=== PATIENT | male | born 1955 | race Caucasian/White ===

== ENCOUNTER → 2016-10-12 | Outpatient (CLI) | payer OTHER ==
[~2016-10-12] MED LIST: AMOX875T PO; CETI10TA84 PEG; CHLO0.12 MT; CHLO0.122 PO; CLOZ100T18 PEG; CLOZ25TA2 PEG; CLOZ50TA PEG; CYAN10005 PEG; CYAN100T6 PEG; LACTCAP3 PEG; LEVA1.255 INH; MULTLIQ PEG; NUTR-7 PEG; NYST100010 TOP; POLY1POW2 PO; ZINC40OI11 TOP
[2016-10-12 13:00] LABS: HEMATOCRIT 38.6 % (42-52); MEAN CELL VOLUME 98.2 fL (80-100); MEAN CORPUSCULAR HEMOGLOBIN 34.1 pg (25-34); MEAN CORPUSCULAR HGB CONC 34.7 g/dl (32-36); MEAN PLATELET VOLUME 13.3 fL (7.4-10.4); PLATELET COUNT 123 K/uL (130-400); RED BLOOD COUNT 3.93 M/uL (4.7-6.1); WHITE BLOOD COUNT 5.32 K/uL (4.8-10.8)
[2016-10-12 13:03] LABS: BASO % 0.4 %; BASO ABS # 0.02 K/uL (0-0.2); COMPLETE YES; EOS % 1.3 %; IG% 0.2 %; LYMPH % 27.8 %; LYMPH ABS # 1.48 K/uL (1.2-3.4); MONO % 11.8 %; NEUT % 58.5 %; PLT ESTIMATE DECREASED
== END | disposition home or self-care (01) ==
LOC: C.LABBFT 11:22
PROVIDERS: ATTEND Internal Medicine
DX: D64.9 Anemia, unspecified (principal)

== ENCOUNTER 2016-11-21 09:43 | Emergency (ER) | payer OTHER ==
[~2016-11-21 09:43] MED LIST changes: -AMOX875T PO; -CHLO0.122 PO; -CYAN10005 PEG; -LEVA1.255 INH; -NYST100010 TOP; -POLY1POW2 PO; -ZINC40OI11 TOP
[2016-11-21] MEDS ORDERED: NYST100010 TOP (10:12)
[2016-11-21] MEDS ORDERED: CYAN10005 PEG (10:12)
[2016-11-21] MEDS ORDERED: ZINC40OI11 TOP (10:12)
[2016-11-21] MEDS ORDERED: POLY1POW2 PO (10:12)
[2016-11-21] MEDS ORDERED: LEVA1.255 INH (10:12)
[2016-11-21] MEDS ORDERED: CHLO0.122 PO (10:12)
--- NOTE | 2016-11-21 10:23 | DIAGNOSTIC IMAGING REPORT ---
SINGLE VIEW CHEST CLINICAL HISTORY: Cough. FINDINGS: An AP, portable, upright chest radiograph is compared to study dated 05/28/2015. The examination is degraded by portable technique and patient rotation. The cardiomediastinal silhouette is normal for projection. There is mild atherosclerotic calcification of the thoracic aorta. There are bibasilar airspace opacities. No large pleural effusion or pneumothorax is seen. The skeletal structures appear osteopenic. The bony thorax is grossly intact. IMPRESSION: There are bibasilar airspace opacities. This could represent atelectasis and/or an infectious/inflammatory pneumonitis. Clinical correlation will be required. Electronically signed by: Jones Goldstein M.D. 11/21/2016 10:21 AM Dictated Date/Time: 11/21/2016 10:18 AM
[2016-11-21 10:28] VITALS: TEMP 36.4
[2016-11-21] MEDS ORDERED: AMOX875T PO (10:53)
[2016-11-21] MEDS ORDERED: SODIUM CHLORIDE 0.65% NA SOLN 45 ML (OCEAN) ONE (11:00)
[2016-11-21 11:12] VITALS: BP 148/94; PULSE 74; O2SAT 98
--- NOTE | 2016-11-21 15:14 | EMERGENCY ROOM VISIT NOTE ---
History Report prepared by Maddy: Raine Gooden Under the Supervision of: Dr. Jones Barroso M.D. First contact with patient: 09:59 Chief Complaint: COUGH Stated Complaint: SEVERE NOSEBLEEDS WHEN COUGHING/DRY TIGHT COUGH Nursing Triage Summary: Patient brought in by director medicare sales from [facility]. Per care given patient has had intermittent dry cough that started over the weekend. Cough is worsening denies any fevers. Patient also having nose bleeds with the cough. History of Present Illness The patient is a 61 year old male who presents to the Emergency Room with complaints of persistent cough starting 3 days ago. The patient's caregiver is giving the history. The cough started as a tight, dry cough. This morning the patient began experiencing nose bleeds when he coughed. This happened 3 times in 45 minutes, prompting the caregiver to present to the ED with the patient. He does have a history of bronchitis and has a nebulizer at home. He also has a humidifier which is regularly in use. The patient is not on blood thinners and has not had treatment for nose bleeds before. He does not have any fever or other symptoms according to the caregiver. Source of History: caregiver Onset: 3 days ago Position: other (global) Quality: other (cough) Timing: other (persistent) Associated Symptoms: No fevers Note: Pt reports nose bleeds. Review of Systems Unobtainable given his mental state. Past Medical & Surgical Medical Problems: (1) Anemia (2) DYSKINESIA OF ESOPHAGUS (3) EPILEPSY UNSPEC W/O MENTION INTRACTABLE EPILEPSY (4) GASTROSTOMY COMPL NOS (5) MENTAL RETARDATION NOS (6) Myelodysplasia (myelodysplastic syndrome) (7) Thrombocytopenia Family History Patient reports no known family medical history. Social History Smoking Status: Never Smoker Alcohol Use: none Marital Status: single Occupation Status: disabled Current/Historical Medications Scheduled Amoxicillin & Pot Clavulanate (Augmentin 875-125 mg), 875 MG PO BID Cetirizine (Zyrtec), 10 MG PEG DAILY Chlorhexidine Gluconate (Mouth (Periogard), 15 ML PO BID Clozapine (Clozapine), 100 MG PEG HS Clozapine (Clozapine), 25 MG PEG HS Clozapine (Clozapine), 50 MG PEG QAM Cyanocobalamin (Vitamin B-12), 1,000 MCG PEG DAILY Lactobacillus (Acidophilus), 1 CAP PEG BID Multiple Vitamins W/ Minerals (Centavite), 15 ML PEG DAILY Nutritional Supplements (Boost), 1 CAN PEG QID Nystatin (Topical) (Nystop), 1 APPLN TOP BID Polyethylene Glycol 3350 (Bulk (Polyethylene Glycol 3350), 17 GM PO BID Zinc Oxide (Topical) (Desitin), 1 APPLN TOP Q4 Scheduled PRN Levalbuterol Hcl (Levalbuterol), 1.25 MG INH TID PRN for SOB/Wheezing Allergies Coded Allergies: Belladonna (Verified Allergy, Mild, 11/21/16) [place] (Verified Allergy, Mild, 11/21/16) Macrolides (Verified Allergy, Mild, RASH, 11/21/16) Trazodone (Verified Allergy, Mild, 11/21/16) Aripiprazole (Unverified Allergy, Unknown, ., 11/21/16) Clarithromycin (Verified Allergy, Unknown, 11/21/16) Glycopyrrolate (Verified Allergy, Unknown, 11/21/16) Metoclopramide (Verified Allergy, Unknown, PT TAKES AT HOME, 04/06/12) Risperidone (Verified Allergy, Unknown, ., 11/21/16) Physical Exam Vital Signs Date Time Temp Pulse Resp B/P Pulse Ox O2 Delivery O2 Flow Rate FiO2 11/21/16 11:12 74 20 148/94 98 11/21/16 10:28 36.4 11/21/16 10:00 97 Room Air 11/21/16 09:52 93 20 105/62 98 Room Air Physical Exam GENERAL: Patient is in no acute distress. HEENT: No acute trauma, normocephalic atraumatic, mucous membranes moist, no nasal congestion, no scleral icterus. Dried blood with a scab to the left anterior nasal septum. No active bleeding. No blood down the back of the throat. NECK: No stridor, no adenopathy, no meningismus, trachea is midline. LUNGS: Clear to auscultation bilaterally, no wheeze, no rhonchi, breath sounds equal. HEART: Without murmurs gallops or rubs, regular rate and rhythm. ABDOMEN: Soft, nontender, bowel sounds positive, no hernias, no peritonitis. EXTREMITIES: No cyanosis or edema, full range of motion of all the joints without pain or difficulty, no signs for acute trauma. NEUROLOGIC: MR noted. Awake and alert. Moving all extremities. SKIN: No rash, no jaundice, no diaphoresis. Medical Decision & Procedures ER Provider Diagnostic Interpretation: X-ray results as stated below per interpretation by me and the radiologist: SINGLE VIEW CHEST CLINICAL HISTORY: Cough. FINDINGS: An AP, portable, upright chest radiograph is compared to study dated 05/28/2015. The examination is degraded by portable technique and patient rotation. The cardiomediastinal silhouette is normal for projection. There is mild atherosclerotic calcification of the thoracic aorta. There are bibasilar airspace opacities. No large pleural effusion or pneumothorax is seen. The skeletal structures appear osteopenic. The bony thorax is grossly intact. IMPRESSION: There are bibasilar airspace opacities. This could represent atelectasis and/or an infectious/inflammatory pneumonitis. Clinical correlation will be required. Electronically signed by: Jones Goldstein M.D. 11/21/2016 10:21 AM Dictated Date/Time: 11/21/2016 10:18 AM Medications Administered Medications (Trade) Dose Ordered Sig/[place] Route Start Time Stop Time Status Last Admin Dose Admin Sodium Chloride ([place] Nasal [place]) 1 sprays NOW ONCE NA 11/21/16 11:00 11/21/16 11:01 DC 11/21/16 11:00 1 SPRAYS ED Course 1003: The patient was evaluated in room A12. A complete history and physical exam was performed. 1045: I reevaluated the patient. He is resting comfortably. I updated him and his caregiver on the results and treatment plan. She expressed understanding and agreement. He will be discharged home. 1100: Sodium Chloride 1 sprays NA. Medical Decision Differential diagnoses: Bronchitis, pneumonia, coagulopathy, anterior or posterior epistaxis. The patient presents with a cough and some left sided epistaxis. The bleeding is controlled at the present. The patient is not on any blood thinners, he is not overtly hypertensive. A chest film was done, lower lobe atelectasis versus possible pneumonia was noted. The patient is in no significant distress. I do not think we need to cauterize his nose. I have advised some saline moisturizer to the nose, a nasal clip if things were to rebleed. The patient will be on Augmentin for the possibility of an early pneumonia. He can be returned here if things are worsening. He will start using his nebulizer to help his cough. Impression Primary Impression: Left-sided epistaxis Additional Impression: Cough Scribe Attestation The scribe's documentation has been prepared under my direction and personally reviewed by me in its entirety. I confirm that the note above accurately reflects all work, treatment, procedures, and medical decision making performed by me. Departure Information Dispostion Home / Self-Care Prescriptions Amoxicillin & Pot Clavulanate (Augmentin 875-125 mg) 1 Tab Tab 875 MG PO BID for 7 Days, #14 TAB Prov: Jones Barroso M.D. 11/21/16 Referrals Chema Hernandez M.D. (PCP) Forms HOME CARE DOCUMENTATION FORM, IMPORTANT VISIT INFORMATION Patient Instructions My [facility] Additional Instructions antibiotics as prescribed start the nebulizer every 4-6 hours if nose rebleeds apply the clip for 30 minutes, if still bleeding report to the ER continue the humidifier to room ocean spray to nose 1 spray to each sided every 4 hours while awake see chau bingham this week for a recheck return if worsening Problem Qualifiers
== END 2016-11-21 11:16 | disposition home or self-care (01) ==
LOC: C.EDB 09:45 → C.EDA 11:16
DX: R04.0 Epistaxis (principal); R05 Cough; F79 Unspecified intellectual disabilities; G40.909 Epilepsy, unspecified, not intractable, without status epilepticus; Z93.1 Gastrostomy status; D46.9 Myelodysplastic syndrome, unspecified; D69.6 Thrombocytopenia, unspecified; Z79.899 Other long term (current) drug therapy

== ENCOUNTER → 2017-05-31 | Outpatient (CLI) | payer OTHER ==
[~2017-05-31] MED LIST changes: -CHLO0.12 MT; +CHLO0.122 PO; +CYAN10005 PEG; -CYAN100T6 PEG; +LEVA1.255 INH; +NYST100010 TOP; +POLY1POW2 PO; +ZINC40OI11 TOP
== END | disposition home or self-care (01) ==
LOC: C.LABSPEC 14:05
PROVIDERS: ATTEND Internal Medicine
DX: A04.7 Enterocolitis due to Clostridium difficile (principal)

== ENCOUNTER → 2017-06-28 | Outpatient (CLI) | payer OTHER ==
[2017-06-28 13:26] LABS: BLOOD UREA NITROGEN 24 mg/dl (7-18); BUN/CREATININE RATIO 23.4 (10-20); CALCIUM 9.4 mg/dl (8.5-10.1); CARBON DIOXIDE 27 mmol/L (21-32); CHLORIDE 110 mmol/L (98-107); CREATININE 1.02 mg/dl (0.60-1.40); GLUCOSE 135 mg/dl (70-99); POTASSIUM 3.6 mmol/L (3.5-5.1); SODIUM 142 mmol/L (136-145)
== END | disposition home or self-care (01) ==
LOC: C.LABBC 11:43
PROVIDERS: ATTEND Internal Medicine
DX: D46.9 Myelodysplastic syndrome, unspecified (principal)

== ENCOUNTER 2017-10-11 10:40 | Emergency (ER) | payer OTHER ==
[~2017-10-11] VITALS: Ht 160 cm; Wt 67.6 kg
[~2017-10-11 10:40] MED LIST changes: -ZINC40OI11 TOP; +ZINC40OI13 TOP
[2017-10-11 10:44] VITALS: TEMP 36; Ht 160 cm; Wt 67.6 kg
[2017-10-11] MEDS ORDERED: ACTUDL10 PEG (11:07)
[2017-10-11] MEDS ORDERED: LOPELIQ6 PEG (11:07)
--- NOTE | 2017-10-11 11:14 | EMERGENCY ROOM VISIT NOTE ---
History Report prepared by Maddy: Cinda Dietrich Under the Supervision of: Dr. Jones Barroso M.D. 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 Per caregiver, the patient' s feeding tube cap broke and needs to be replaced. The current feeding tube is located in the LUQ of his abdomen. He was placed on a feeding tube years ago due to persistent aspirations. The patient has been doing well lately and his mental status is at baseline. Per caregiver, the patient denies any coughs, diarrhea, or congestion. Source of History: caregiver Onset: HIGHER EDUCATION ADMINISTRATOR Position: abdomen (LUQ), other Quality: other ( feeding tube replacement ) Timing: other (episodic) Associated Symptoms: No cough, No diarrhea Note: Denies congestion. Review of Systems See HPI for pertinent positives & negatives. A total of 10 systems reviewed and were otherwise negative. Past Medical & Surgical Medical Problems: (1) Abrasion of scrotum (2) Anemia (3) Closed head injury (4) Cough (5) Dislodged gastrostomy tube (6) DYSKINESIA OF ESOPHAGUS (7) EPILEPSY UNSPEC W/O MENTION INTRACTABLE EPILEPSY (8) Feeding tube blocked (9) Feeding tube dysfunction (10) GASTROSTOMY COMPL NOS (11) Left-sided epistaxis (12) MENTAL RETARDATION NOS (13) Multiple abrasions (14) Multiple contusions (15) Myelodysplasia (myelodysplastic syndrome) (16) Nasal bone fracture (17) PEG tube malfunction (18) Thrombocytopenia (19) Uses feeding tube Family History No pertinent family history obtained secondary to patient's condition Social History Smoking Status: Never Smoker Alcohol Use: none Drug Use: none Marital Status: single Occupation Status: disabled Current/Historical Medications Scheduled Cetirizine (Zyrtec), 10 MG PEG DAILY Chlorhexidine Gluconate (Mouth (Periogard), 15 ML PO BID Clozapine (Clozapine), 100 MG PEG HS Clozapine (Clozapine), 25 MG PEG HS Clozapine (Clozapine), 50 MG PEG QAM Cyanocobalamin (Vitamin B-12), 1,000 MCG PEG DAILY Lactobacillus (Acidophilus), 1 CAP PEG BID Loperamide Hcl (Imodium A-D), 4 TSP PEG DIRECTED Multiple Vitamins W/ Minerals (Centavite), 15 ML PEG DAILY Nutritional Supplements (Boost), 1 CAN PEG QID Nystatin (Topical) (Nystop), 1 APPLN TOP BID Polyethylene Glycol 3350 (Bulk (Polyethylene Glycol 3350), 17 GM PO BID Zinc Oxide (Topical) (Desitin), 1 APPLN TOP Q4 Scheduled PRN Acetaminophen 320 Mg/10 Ml (Tylenol 320 MG/10 ML), 20 ML PEG Q4H PRN for Pain or Fever Levalbuterol Hcl (Levalbuterol), 1.25 MG INH TID PRN for SOB/Wheezing Allergies Coded Allergies: Bell[place] (Verified Allergy, Mild, 11/21/16) [place] (Verified Allergy, Mild, 11/21/16) Macrolides (Verified Allergy, Mild, RASH, 11/21/16) Trazodone (Verified Allergy, Mild, 11/21/16) Aripiprazole (Unverified Allergy, Unknown, ., 11/21/16) Clarithromycin (Verified Allergy, Unknown, 11/21/16) Glycopyrrolate (Verified Allergy, Unknown, 11/21/16) Metoclopramide (Verified Allergy, Unknown, PT TAKES AT HOME, 04/06/12) Risperidone (Verified Allergy, Unknown, ., 11/21/16) Physical Exam Vital Signs Date Time Temp Pulse Resp B/P (MAP) Pulse Ox O2 Delivery O2 Flow Rate FiO2 10/11/17 12:01 67 20 123/67 97 10/11/17 10:44 36.0 79 18 108/60 98 Room Air Physical Exam GENERAL: Patient is in no acute distress. HEENT: No acute trauma, normocephalic atraumatic, mucous membranes moist, no nasal congestion, no scleral icterus. NECK: No stridor, no adenopathy, no meningismus, trachea is midline. LUNGS: Clear to auscultation bilaterally, no wheeze, no rhonchi, breath sounds equal. HEART: Without murmurs gallops or rubs, regular rate and rhythm. ABDOMEN: Soft, nontender, bowel sounds positive, no hernias, no peritonitis. Feeding tube present in LUQ with broken cap. EXTREMITIES: No cyanosis or edema, full range of motion of all the joints without pain or difficulty, no signs for acute trauma. NEUROLOGIC: MR noted. Moving all extremities, acting appropriately per staff. SKIN: No rash, no jaundice, no diaphoresis. Medical Decision & Procedures Procedure Feeding tube replacement: The existing feeding tube had the balloon deflated. The tube was removed. Betadine was used to keep a clean field. Surgical lube was used for ease of placement. The new feeding tube was placed without difficulty and the balloon was inflated with 5 mL of sterile water. It was confirmed in proper position as stomach contents were easily aspirated. No complications with the procedure. The patient was discharged. ED Course 1107: The patient was evaluated in room C4. A complete history and physical exam was performed. I replaced the patient's feeding tube. Please see procedural note. I discussed the results and treatment plan with the patient's caregiver. I answered all pertaining questions that the caregiver had. The caregiver expressed understanding and verbalized agreement. The patient will be discharged home. Medical Decision The patient is a 62 year old male who presents to the ED with complaints of feeding tube replacement. Differential diagnoses considered include misplaced feeding tube, broken feeding tube, need for feeding tube replacement, and infection. The patient presents with a broken feeding tube. He has been in baseline health. He has no other issues today. He is pleasant and afebrile. The broken feeding tube was removed without difficulty. A new feeding tube was placed as mentioned above and noted to be in proper position. The patient was discharged. Medication Reconcilliation Current Medication List: was personally reviewed by me Blood Pressure Screening Patient's blood pressure: Normal blood pressure Impression Primary Impression: Feeding tube dysfunction Scribe Attestation The scribe's documentation has been prepared under my direction and personally reviewed by me in its entirety. I confirm that the note above accurately reflects all work, treatment, procedures, and medical decision making performed by me. Departure Information Dispostion Home / Self-Care Referrals Chema Hernandez M.D. (PCP) Forms HOME CARE DOCUMENTATION FORM, IMPORTANT VISIT INFORMATION, WORK / SCHOOL INSTRUCTIONS Patient Instructions My [facility] Additional Instructions use the feeding tube as before return for any problems with the feeding tube
[2017-10-11 12:01] VITALS: BP 123/67; PULSE 67; O2SAT 97
== END 2017-10-11 11:50 | disposition home or self-care (01) ==
LOC: C.EDB 10:41 → C.EDC 11:50
DX: K94.23 Gastrostomy malfunction (principal); F79 Unspecified intellectual disabilities

== ENCOUNTER → 2017-10-23 | Outpatient (CLI) | payer OTHER ==
[~2017-10-23] MED LIST changes: +ACTUDL10 PEG; +LOPELIQ6 PEG
[2017-10-23 16:53] LABS: BASO % 0.3 %; BASO ABS # 0.02 K/uL (0-0.2); EOS % 1.5 %; HEMATOCRIT 40.2 % (42-52); HEMOGLOBIN 13.5 g/dL (14.0-18.0); IG# 0.02 K/uL (0.00-0.02); LYMPH % 26.4 %; LYMPH ABS # 1.76 K/uL (1.2-3.4); MEAN CELL VOLUME 99.8 fL (80-100); MEAN CORPUSCULAR HEMOGLOBIN 33.5 pg (25-34); MEAN CORPUSCULAR HGB CONC 33.6 g/dl (32-36); MEAN PLATELET VOLUME 12.7 fL (7.4-10.4); MONO % 11.1 %; MONO ABS # 0.74 K/uL (0.11-0.59); NEUT % 60.4 %; NEUT ABS # 4.02 K/uL (1.4-6.5); PLATELET COUNT 137 K/uL (130-400); RED CELL DISTRIBUTION WIDTH CV 13.4 % (11.5-14.5); RED CELL DISTRIBUTION WIDTH SD 48.4 fL (36.4-46.3); WHITE BLOOD COUNT 6.66 K/uL (4.8-10.8)
== END | disposition home or self-care (01) ==
LOC: C.LABBC 13:19
PROVIDERS: ATTEND Internal Medicine
DX: D64.9 Anemia, unspecified (principal)

== ENCOUNTER 2017-11-13 18:00 | Emergency (ER) | payer OTHER ==
[~2017-11-13] VITALS: Ht 165.1 cm; Wt 68.7 kg
[2017-11-13 18:05] VITALS: TEMP 36.7; Ht 165.1 cm; Wt 68.7 kg
--- NOTE | 2017-11-13 18:43 | DIAGNOSTIC IMAGING REPORT ---
CHEST 2 VIEWS ROUTINE CLINICAL HISTORY: Chronic NPO status, today consumed drink. Aspiration? Dyspnea COMPARISON STUDY: 11/21/2016 FINDINGS: Mild cardia megaly. Diffuse interstitial change throughout both hemithoraces. A component of mild congestive failure may be present. IMPRESSION: Progressive interstitial change compared to the prior study suggesting developing congestive failure. No focal infiltrate. An interstitial pneumonitis may present in a similar fashion. The above report was generated using voice recognition software. It may contain grammatical, syntax or spelling errors. Electronically signed by: Jason Chaves M.D. 11/13/2017 6:42 PM Dictated Date/Time: 11/13/2017 6:41 PM
--- NOTE | 2017-11-13 18:58 | EMERGENCY ROOM VISIT NOTE ---
History First contact with patient: 18:11 Chief Complaint: OTHER COMPLAINT Stated Complaint: NPO DUE TO FEEDING TUBE - WORRIED HE ASPIRATED History of Present Illness The patient is a 62 year old male who presents to the Emergency Room via private vehicle accompanied by female garment steamer for skills with complaints of "NPO due to feeding tube, worried he aspirated". Patient is nonverbal. The skills garment steamer who presents with the patient provides the history. He is to be n.p.o. with a feeding tube he has had for numerous years. Unfortunately earlier today he was able to acquire root beer, and drank this. He has not coughed or showed signs of aspiration however to be cautious was brought here for evaluation. Review of Systems Unable to assess as patient is non verbal. Past Medical/Surgical History Medical Problems: (1) Abrasion of scrotum (2) Anemia (3) Closed head injury (4) Cough (5) Dislodged gastrostomy tube (6) DYSKINESIA OF ESOPHAGUS (7) EPILEPSY UNSPEC W/O MENTION INTRACTABLE EPILEPSY (8) Feeding tube blocked (9) Feeding tube dysfunction (10) GASTROSTOMY COMPL NOS (11) Left-sided epistaxis (12) MENTAL RETARDATION NOS (13) Multiple abrasions (14) Multiple contusions (15) Myelodysplasia (myelodysplastic syndrome) (16) Nasal bone fracture (17) PEG tube malfunction (18) Thrombocytopenia (19) Uses feeding tube Family History No pertinent family history obtained secondary to patient's condition Social History Smoking Status: Never Smoker Alcohol Use: none Drug Use: none Marital Status: single Occupation Status: disabled Current/Historical Medications Scheduled Cetirizine (Zyrtec), 10 MG PEG DAILY Chlorhexidine Gluconate (Mouth (Periogard), 15 ML PO BID Clozapine (Clozapine), 100 MG PEG HS Clozapine (Clozapine), 25 MG PEG HS Clozapine (Clozapine), 50 MG PEG QAM Cyanocobalamin (Vitamin B-12), 1,000 MCG PEG DAILY Lactobacillus (Acidophilus), 1 CAP PEG BID Loperamide Hcl (Imodium A-D), 4 TSP PEG DIRECTED Multiple Vitamins W/ Minerals (Centavite), 15 ML PEG DAILY Nutritional Supplements (Boost), 1 CAN PEG QID Nystatin (Topical) (Nystop), 1 APPLN TOP BID Polyethylene Glycol 3350 (Bulk (Polyethylene Glycol 3350), 17 GM PO BID Zinc Oxide (Topical) (Desitin), 1 APPLN TOP Q4 Scheduled PRN Acetaminophen 320 Mg/10 Ml (Tylenol 320 MG/10 ML), 20 ML PEG Q4H PRN for Pain or Fever Levalbuterol Hcl (Levalbuterol), 1.25 MG INH TID PRN for SOB/Wheezing Physical Exam Vital Signs Date Time Temp Pulse Resp B/P (MAP) Pulse Ox O2 Delivery O2 Flow Rate FiO2 11/13/17 18:05 36.7 73 16 127/67 96 Room Air Physical Exam VITAL SIGNS - Vital signs and nursing notes were reviewed. Stable. GENERAL - 62-year-old male appearing his stated age who is in no acute distress. Non verbal but pleasant and smiling in exam room. No labored breathing. SKIN - Without rashes. HEAD - NC/AT. EYES - PERRL with EOMI bilaterally. Sclera anicteric. Palpebral conjunctiva pink and moist with no injection noted. EARS - No deformities of external structures noted on gross examination bilaterally. NOSE - Midline and without cyanosis. No epistaxis or purulent drainage noted. MOUTH/OROPHARYNX - Without perioral cyanosis. LUNGS - Chest wall symmetric without accessory muscle use, intercostals retractions, or central cyanosis. Normal vesicular breath sounds CTA B/L. No wheezes, rales, or rhonchi appreciated. CARDIAC - RRR with S1/S2. No murmur, rubs, or gallops appreciated. Medical Decision & Procedures ER Provider Diagnostic Interpretation: CHEST 2 VIEWS ROUTINE CLINICAL HISTORY: Chronic NPO status, today consumed drink. Aspiration? Dyspnea COMPARISON STUDY: 11/21/2016 FINDINGS: Mild cardia megaly. Diffuse interstitial change throughout both hemithoraces. A component of mild congestive failure may be present. IMPRESSION: Progressive interstitial change compared to the prior study suggesting developing congestive failure. No focal infiltrate. An interstitial pneumonitis may present in a similar fashion. The above report was generated using voice recognition software. It may contain grammatical, syntax or spelling errors. Electronically signed by: Jason Chaves M.D. 11/13/2017 6:42 PM Dictated Date/Time: 11/13/2017 6:41 PM Medical Decision Patient was seen and evaluated as above. He presents to us today for evaluation over concern for potential aspiration. It is important to note that there were no signs of aspiration prior to the hospital nor here in the hospital. However this evaluation is to ensure that there is no aspiration following him drinking root beer on his n.p.o. status because of the feeding tube. After obtaining a thorough history and physical examination the above work up was performed. Chest x-ray reveals interstitial change however I favor this to be chronic as clinically the patient looks excellent has no findings suggesting aspiration. Case discussed with the attending physician. However, the patient certainly could develop something in the near future from this therefore do recommend follow-up with the family doctor either tomorrow or the following day and caretakers are to repeat his temperature every 6 hours to ensure no fever, and watch for cough, congestion or trouble breathing and if these were to develop he is to return immediately. The they were educated upon management, had questions answered prior to discharge, and was discharged home in good condition. Case was discussed with the attending physician I attest that I have personally reviewed the patient medication list. The patient's blood pressure was reviewed and was found to be slightly hypertensive. He is to follow with the family doctor either tomorrow or the following day for recheck. In the evaluation and treatment of this patient the following differential diagnoses were entertained: Aspiration, pneumonia, among others. Impression Primary Impression: Concern about aspiration Departure Information Dispostion Home / Self-Care Condition GOOD Referrals No Doctor, Assigned (PCP) Patient Instructions My [facility] Additional Instructions Mr. Simms was seen and evaluated in the emergency department on November 13, 2017. Concern was that he potentially aspirated, however x-ray I believe favors a chronic change rather than aspiration. He looks well here, is saturating well on room air, is not coughing, and has no fever. I do recommend continuing to monitor for worsening symptoms like fever, coughing, trouble breathing, or any new/concerning symptoms and if these develop please return. Please call the patient's family doctor to schedule follow-up in the next 1-2 days for recheck. Thank you for your time. CHEST 2 VIEWS ROUTINE CLINICAL HISTORY: Chronic NPO status, today consumed drink. Aspiration? Dyspnea COMPARISON STUDY: 11/21/2016 FINDINGS: Mild cardia megaly. Diffuse interstitial change throughout both hemithoraces. A component of mild congestive failure may be present.
[2017-11-13 19:25] VITALS: BP 139/64; PULSE 67; O2SAT 98
== END 2017-11-13 19:25 | disposition home or self-care (01) ==
LOC: C.EDB 18:01 → C.EDD 19:25
DX: T17.200A Unspecified foreign body in pharynx causing asphyxiation, initial encounter (principal); X58.XXXA Exposure to other specified factors, initial encounter; K22.4 Dyskinesia of esophagus; G40.909 Epilepsy, unspecified, not intractable, without status epilepticus; Z93.1 Gastrostomy status; F79 Unspecified intellectual disabilities

== ENCOUNTER → 2017-12-25 | Outpatient (CLI) | payer OTHER ==
[2017-12-25 16:49] LABS: BASO % 0.5 %; BASO ABS # 0.03 K/uL (0-0.2); EOS % 2.6 %; EOS ABS # 0.14 K/uL (0-0.5); HEMATOCRIT 39.1 % (42-52); HEMOGLOBIN 12.9 g/dL (14.0-18.0); IG# 0.02 K/uL (0.00-0.02); LYMPH % 29.5 %; LYMPH ABS # 1.61 K/uL (1.2-3.4); MEAN PLATELET VOLUME 12.9 fL (7.4-10.4); MONO ABS # 0.71 K/uL (0.11-0.59); NEUT ABS # 2.95 K/uL (1.4-6.5); PLATELET COUNT 136 K/uL (130-400); RED CELL DISTRIBUTION WIDTH CV 13.6 % (11.5-14.5); RED CELL DISTRIBUTION WIDTH SD 49.2 fL (36.4-46.3); WHITE BLOOD COUNT 5.46 K/uL (4.8-10.8)
== END | disposition home or self-care (01) ==
LOC: C.LABBC 14:04
PROVIDERS: ATTEND Internal Medicine
DX: D64.9 Anemia, unspecified (principal)

== ENCOUNTER 2023-08-07 01:02 | Inpatient (IN) ==
--- OUTSIDE RECORDS SUMMARY | 2023-08-07 01:13 | External Medical Summary | Summary of Care ---
Author Name Unknown Organization [facility] Address [address] [place] [address] Phone [phone] Care Team Providers Care Handle Bender Name Role Phone Von Stewart MD Primary Care Provi dung Reason for Visit * Reason Onset Date Comments Other 06/02/2023 Encounter Details Date Type Department Care Team Description 06/02/2023 Telephone Gastroenterology, [facility] [address] [place] [address] Shellie Norman, [address] [place] [address] Other Allergies Active Allergy Reactions Severity Noted Date Comments Neomycin-Polymyxin B Gu 07/01/2010 Aripiprazole 07/01/2010 Belladonna Alkaloids 07/01/2010 Clarithromycin 12/25/2002 Stomach upset Clarithromycin 07/01/2010 Glycopyrrolate Base 12/25/2002 Aggressive [place] 12/25/2002 Aggressive Macrolides And Ketolides 07/01/2010 Other - Drugs 07/01/2010 alkolide Risperidone 07/01/2010 Trazodone 12/08/2005 Swelling of face and hands, and aggressive documented as of this encounter (statuses as of 06/09/2023) Medications Medication Sig Dispensed Refills Start Date End Date Status MIRALAX PO POWDIndications:Ot her constipation Dissolve one heaping tablespoon in 8 ounces of water or juice - one dose twice daily till bm then every 3 days if no bm 1 Bottle 2 05/18/2012 Active cloZAPine 100 MG Oral Tablet Take 0.5 Tablets by mouth in the morning. 50mg In the morning. 0 Active cloZAPine 100 MG Oral Tablet Take 1 Tablet by mouth in the morning. 100mg at bedtime and a 25 mg at night. 0 Active Cyanocobalamin (VITAMIN B-12) 1000 MCG Tablet Administer 1 Tablet into PEG tube in the morning. 0 Active Lactobacillus (PROBIOTIC ACIDOPHILUS) TABS Administer 1 Tab into PEG tube 2 times a day. 0 Active Multiple Vitamins-Minerals (CENTAMIN) LIQD Administer 15 mL into PEG tube daily. 0 Active Chlorhexidine Gluconate 0.12 % Mouth/Throat Solution Apply 1 mL to inside of cheek in the morning and 1 mL before bedtime. Use toothette to swab teeth and gums two times per day. 0 Active Cetirizine HCl 10 MG Oral Tablet Take 1 Tablet by mouth in the morning. 0 Active Calmoseptine 0.44-20.6 % External Ointment (Menthol-Zinc Oxide) Apply topically to affected area as needed (peg tube). Apply topeg tube 0 Active Fluocinonide 0.05 % External Ointment Apply topically to affected area 2 times a day. Apply to as directed 0 Active Hydrocortisone Butyr Lipo Base 0.1 % External Cream Apply topically to affected area. Apply to as needed 0 Active Loperamide HCl 2 MG Oral Capsule Take 1 Capsule by mouth 4 times a day as needed for Diarrhea. 0 Active Alum & Mag Hydroxide-Simeth 200-200-20 MG/5ML Oral Suspension (Maalox Max) Take by mouth every 6 hours as needed for Indigestion. 0 Active Triple Antibiotic 3.5-400-5000 External Ointment Apply topically to affected area once. Apply to as ordered 0 Active Acetaminophen 160 MG/5ML Oral Suspension (Tylenol) Take by mouth every 4 hours as needed. 0 Active Desitin External Ointment Apply topically to affected area. Apply to as ordered 0 Active Eucerin External Cream Apply topically to affected area as needed for Dry Skin. Apply to as ordered 0 Active Furosemide 10 MG/ML Oral Solution (Lasix) Take 4 mL by mouth in the morning. As needed . 0 Active Boost Breeze Oral Liquid Take by mouth. 0 Active Clotrimazole-Betam ethasone 1-0.05 % External Cream Apply topically to affected area 2 times a day. Apply to as ordered 0 Active Bisacodyl 10 MG Rectal Suppository (Dulcolax) 0 04/15/2022 Active Fluocinonide Emulsified Base 0.05 % External Cream 0 05/18/2022 Active predniSONE 5 MG/5ML Oral Solution 0 04/28/2022 Active Allopurinol 100 MG Oral Tablet (Zyloprim) .COMPLEX 0 02/23/2023 Active Ibuprofen 100 MG/5ML Oral Suspension (Motrin) 0 02/23/2023 Active Docusate Sodium 50 MG/5ML Oral Liquid Take 5 mL by mouth in the morning. 0 Active Acidophilus Oral Tablet Chewable Take by mouth. 0 Activ e Sulfamethoxazole-T rimethoprim 200-40 MG/5ML Oral Suspension (Bactrim) Take 5 mL by mouth in the morning and 5 mL before bedtime. Via the PEG TUBE. 50 mL 0 05/16/2023 Active Nystatin 034594 UNIT/GM External Powder (Nystop)Indication s:Fungal skin infection Apply to affected area twice a day. Per wound care nurse instruction until skin is healed 15 g 2 06/09/2023 Active Kaltostat 2"x2" External PadIndications:Fun gal skin infection Apply to affected area per wound care nurse instruction. 90 Each 1 06/09/2023 Active Nystatin [id number] UNIT/GM External Powder (Nystop) Apply topically to affected area 3 times a day. Apply to as directed 0 3 Discontinue d(Refill) documented as of this encounter (statuses as of 06/09/2023) Active Problems Problem Noted Date Anemia 01/13/2015 ASPIRATION PNEUMONIA BACTERIAL,SPECIFIED 01/07/2011 DYSPHAGIA FUNCTIONAL 01/07/2011 Feeding problem 01/07/2011 Intestinal infection due to Clostridium difficile 05/28/2010 Generalized anxiety disorder 06/26/2007 EPILEPSY;NONCONV,WITH INTRACTABLE 2005 ADVANCE DIRECTIVE INFORMATION 03/08/2006 Overview: no spastic quadriparesis 09/19/2003 QUADRIPLEGIA, UNSPECIFIED 05/29/2003 Microcephalus 05/29/2003 Anemia 01/06/2003 Intellectual disability 10/30/2002 Overview: ICD-10 update of inactive term GERD (gastroesophageal reflux disease) 0 10/30/2002 MENTAL-BEHAVIOR PROB NOS 10/30/2002 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 CHRONIC RENAL FAILURE 01/06/2003 02/07/2006 documented as of this encounter (statuses as of 06/09/2023) Immunizations Name Administration Dates Next Due H1N1 2009 Influenza, IM 07/20/2009 Hepatitis B, 20+ yrs 08/31/1983,03/09/1983,02/10 PPD 02/04/2010, 8,02/17/2006,03/17 Pneumococcal Polysaccharide PPV23 (Pneumovax) 10/04/2006 Seasonal Influenza, Split, I IV3, With Preserve, Inj 07/12/2011,06/07/2010,06/05/2009,07/15,06/18/2007,06/21/2006,07/27/2005 ,06/23/2004,07/22/2002 TB Maya Test 07/22/2002 TD - Tetanus/Diptheria (ADULT) 03/15/2001 TDAP (age 11 and older)(Adacel) 02/11/2011 documented as of this encounter Social History Tobacco Use Types Packs/Day Years Used Date Smoking Tobacco: Never Smokeless Tobacco: Never Alcohol Use Standard Drinks/Week Comments No 0 (1 standard drink = 0.6 oz pur e alcohol) Sex Assigned at Date Recorded Not on file Job Start Date Occupation Industry Not on file Not on file Not on file documented as of this encounter Miscellaneous Notes * Addendum Note - Shellie Norman DO - 06/09/2023 6:23 PM EDTAddended by: SHELLIE NORMAN on: 06/09/2023 06:23 PM Modules accepted: Orders * Telephone Encounter - KIKO Vick - 06/09/2023 10:23 AM EDT Yahaira ids calling from the senior living wanting to know if the prescriptions were called in for him she can be reached at [phone] he will be out of his today * Telephone Encounter - Jen Howard RN - 06/07/2023 8:43 AM EDT TT sent to Dr. Norman to see if this is somwthing she would be willing to order or shed like to refer to PCP * Addendum Note - Jen Howard RN - 06/06/2023 2:24 PM EDTAddended by: JEN HOWARD on: 06/06/2023 02:24 PM Modules accepted: Orders * Telephone Encounter - Jen Howard RN - 06/06/2023 1:39 PM EDT Rogelio dutton md care nurse from [facility] calling back. Reports yahaira their nurse for the senior living needs an order for Kaltostat and Nystatin powder BID. Reports they have the Nystatin powder but need and order / direction to use it more often (BID). She thinks [facility] care on [address] carries Kaltostat. I called [facility] care and they reported they do not have any available. It looks like the [facility] uses [facility]. I called them and they have the 2x2 version available. Pended. Also pended Nystatin already listed on his medication list to say BID. Dr. Norman is this something you are willing to order? * Telephone Encounter - Jen Howard RN - 06/02/2023 1:44 PM EDT I received a fax from Rogelio Gonsales at [facility]. Sent to scanning. Ready facility needs orders for dressingsaround the PEG tube. I wanted to clarify further . I am not sure what the second recommendation wasas I can not read the writing. Also wanted to know if shed like Dr. Norman to order this. Do they usually come from a [employer] company? If Dr. Norman is unwilling to order and wound care can't. Maybe PCP will order. I left a message for rogelio to call me back. Sent fax to scanning. documented in this encounter Plan of Treatment Upcoming Encounters Date Type Specialty Care Team Description 10/31/2023 Office Visit Gastroenterology Ruben Ramos MD [address] [place] [address] Health Maintenance Due Date Last Done Comments Depression Screening 1967 Hepatitis C Screening 1973 Cologuard 2000 Fecal Occult Blood Test 2000 Sigmoidoscopy 2000 Lipid Panel 12/28/2016 12/29/2011, 07/12, 02/11/2011, Additional history exists Pneumococcal Vaccine: 65+ Years (2 - PCV) 2020 10/04/2006 Colonoscopy 05/26/2020 05/26/2010, 06/12/2007 Colorectal Cancer Screening 05/26/2020 COVID-19 Vaccine (3 - Pfizer series) 01/01/2021 11/06/2020, 10/16/2020 DTaP,Tdap,and Td Vaccines (2 - Td or Tdap) 02/11/2021 02/11/2011, 03/15/2001, 03/15/2001 Influenza Vaccine (FLU shot) (#1) 2023 05/13/2020, 06/26/2019, 07/12/2011, Additional history exists Hepatitis B Completed 08/31/1983, 02/10, 02/10/1983 Zoster Vaccines Completed 08/19/2020, 05/13, 05/31/2020, Additional history exists GARDASIL-HPV IMMUNIZATION SERIES Aged Out No longer eligible based on patient's age to complete this topic MENINGOCOCCAL (MENACTRA/MENVEO) Aged Out No longer eligible based on patient's age to complete this topic documented as of this encounter Medical Devices Not on filedocumented as of this encounter Visit Diagnoses Diagnosis Fungal skin infection- Primary Dermatophytosis of the body documented in this encounter Care Teams Handle Bender Relationship Specialty Start Date End Date oVn Stewart MD [address] [place] [address] [place] [id number] PCP - General Internal Medicine 02/04/21 documented as of this encounter
--- OUTSIDE RECORDS SUMMARY | 2023-08-07 01:13 | External Medical Summary | Summary of Care ---
Author Name Unknown Organization [facility] Address [address] [place] [address] Phone [phone] Care Team Providers Care Ultrasound Spec Name Role Phone Von Stewart MD Primary Care Provi dung Reason for Visit * Reason Onset Date Comments Advice 06/12/2023 Encounter Details Date Type Department Care Team Description 06/12/2023 Telephone Gastroenterology, [address] [address] Shellie Hall, DO [address] [place] [address] Advice Allergies Active Allergy Reactions Severity Noted Date Comments Neomycin-Polymyxin B Gu 07/01/2010 Aripiprazole 07/01/2010 Belladonna Alkaloids 07/01/2010 Clarithromycin 12/25/2002 Stomach upset Clarithromycin 07/01/2010 Glycopyrrolate Base 12/25/2002 Aggressive [place] 12/25/2002 Aggressive Macrolides And Ketolides 07/01/2010 Other - Drugs 07/01/2010 alkolide Risperidone 07/01/2010 Trazodone 12/08/2005 Swelling of face and hands, and aggressive documented as of this encounter (statuses as of 06/12/2023) Medications Medication Sig Dispensed Refills Start Date End Date Status MIRALAX PO POWDIndications:Othe r constipation Dissolve one heaping tablespoon in 8 [...] Oral Liquid Take by mouth. 0 Active Clotrimazole-Betamet hasone 1-0.05 % External Cream Apply topically to [...] Chewable Take by mouth. 0 Activ e Sulfamethoxazole-Tri methoprim 200-40 MG/5ML Oral Suspension (Bactrim) Take 5 mL by mouth in the morning and 5 mL before bedtime. Via the PEG TUBE. 50 mL 0 05/16/2023 Active Nystatin 950858 UNIT/GM External Powder (Nystop)Indications: Fungal skin infection Apply to affected area twice a day. Per wound care nurse instruction until skin is healed 15 g 2 06/09/2023 Active Kaltostat 2"x2" External PadIndications:Funga l skin infection Apply to affected area per wound care nurse instruction. 90 Each 1 06/09/2023 Active documented as of this encounter (statuses as of 06/12/2023) Active Problems Problem Noted Date Anemia 01/13/2015 [...] as of this encounter (statuses as of 06/12/2023) Resolved Problems Problem Noted Date Resolved Date Other disorder of eating of nonorganic origin 01/07/2011 Generalized anxiety disorder 06/26/2007 Overview: Resolved per Duplicate Protocol #2. CHRONIC RENAL FAILURE 01/06/2003 02/07/2006 documented as of this encounter (statuses as of 06/12/2023) Immunizations Name Administration Dates Next Due H1N1 [...] as of this encounter Miscellaneous Notes * Telephone Encounter - Renee Og RN - 06/12/2023 10:22 AM EDT Caregiver called says pt went to wound care nurse re: wound around Peg site. They ordered dressing called Kaltostat. Insurance won't cover it. It is very expensive for them to use. Told her it would be best to f/u with wound care nurse re: the wound as Dr. Hall doesn't really treat wounds. Caregiver says the area is healing. Previously, pt had a split guaze and wore a binder. Wasn't picking it as much when he was wearing the binder and split gauze. Caregiver assumes the Kaltostat bothers him more since he is picking at it. She thinks they have problems b/c it is always "sealed up" with abd binder. Wants to know if they can go back to using split gauze. Told her I think Dr. Hall would be fine with them using whatever seems best for the pt--if the wound is healing and the Kaltostat seems to bother him, then try the split gauze again. If the wound recurs then they will have to contact wound care nurse and may have to resume Kaltostat or an alternative dressing. Also suggested an adult onesie which is all cotton instead of the abd binder which would be more "breathable" and would prevent pt from pulling out the tube. Found one on the [employer] website. Gave caregiver that information as well. She will look into it. documented in this encounter Plan of Treatment Upcoming Encounters Date Type Specialty Care Team Description 10/31/2023 Office Visit Gastroenterology Ruben Ramos MD [address] [place] [address] Health Maintenance Due Date Last Done Comments [...] Not on filedocumented as of this encounter Care Teams Ultrasound Spec Relationship Specialty Start Date End Date Von Stewart MD [address] [place] [address] [place] [id number] PCP - General Internal Medicine 02/04/21 documented as of this encounter
--- OUTSIDE RECORDS SUMMARY | 2023-08-07 01:13 | External Medical Summary | Summary of Care ---
Author Name Unknown Organization [facility] Address [address] [place] [address] Phone [phone] Care Team Providers Care Rn Employee Health Name Role Phone Von Stewart MD Primary Care Provi dung Reason for Visit * Reason Onset Date Comments Advice 06/12/2023 Encounter Details Date Type Department Care Team Description 06/12/2023 Telephone Gastroenterology, [address] [address] Shellie Hall, DO [address] [place] [address] Advice Allergies Active Allergy Reactions Severity Noted Date Comments Neomycin-Polymyxin B Gu 07/01/2010 Aripiprazole 07/01/2010 Belladonna Alkaloids 07/01/2010 Clarithromycin 12/25/2002 Stomach upset Clarithromycin 07/01/2010 Glycopyrrolate Base 12/25/2002 Aggressive [place] 12/25/2002 Aggressive Macrolides And Ketolides 07/01/2010 Other [...] TUBE. 50 mL 0 05/16/2023 Active Nystatin 498018 UNIT/GM External Powder (Nystop)Indications: Fungal skin infection [...] out the tube. Found one on the [employer] website. Gave caregiver that information as well. She will look into it. documented in this encounter Plan of Treatment Upcoming Encounters Date Type Specialty Care Team Description 10/31/2023 Office Visit Gastroenterology Ruben Ramos MD [address] [place] [address] Health Maintenance Due Date Last Done Comments [...] filedocumented as of this encounter Care Teams Rn Employee Health Relationship Specialty Start Date End Date Von Stewart MD [address] [place] [address] [place] [address] PCP - General Internal Medicine 02/04/21 documented as of this encounter
--- OUTSIDE RECORDS SUMMARY | 2023-08-07 01:13 | External Medical Summary | Summary of Care ---
Author Name Unknown Organization [facility] Address [address] [place] [address] Phone [phone] Care Team Providers Care General Labor Name Role Phone Von Stewart MD Primary Care Provi dung Reason for Visit * Reason Onset Date Comments Advice 08/01/2023 Encounter Details Date Type Department Care Team ([facility] st Contact Info) Description 08/01/2023 Telephone Gastroenterology, [facility] [address] [place] [address] Services, Scheduling [address] [place] [address] Advice Allergies Active Allergy Reactions Criticality Noted Date Comments Neomycin-Polymyxin B Gu 07/01/2010 Aripiprazole 07/01/2010 Belladonna Alkaloids 07/01/2010 Clarithromycin 12/25/2002 Stomach upset Clarithromycin 07/01/2010 Glycopyrrolate Base 12/25/2002 Aggressive [place] 12/25/2002 Aggressive Macrolides And Ketolides 07/01/2010 Other - Drugs 07/01/2010 alkolide Risperidone 07/01/2010 Trazodone 12/08/2005 Swelling of face and hands, and aggressive documented as of this encounter (statuses as of 08/01/2023) Medications Medication Sig Dispensed Refills Start Date [...] TUBE. 50 mL 0 05/16/2023 Active Nystatin [id number] UNIT/GM External Powder (Nystop)Indications: Fungal skin infection Apply to affected area twice a day. Per wound care nurse instruction until skin is healed 15 g 2 06/09/2023 Active Kaltostat 2"x2" External PadIndications:Funga l skin infection Apply to affected area per wound care nurse instruction. 90 Each 1 06/09/2023 Active documented as of this encounter (statuses as of 08/01/2023) Active Problems Problem Noted Date Diagnosed Date Anemia 01/13/2015 ASPIRATION PNEUMONIA BACTERIAL,SPECIFIED 011 DYSPHAGIA FUNCTIONAL 01/07/2011 Feeding problem 01/07/2011 Intestinal infection due to Clostridium difficil e 05/28/2010 Generalized anxiety disorder 06/26/2007 EPILEPSY;NONCONV,WITH INTRACTABLE 03/27/2006 ADVANCE DIRECTIVE INFORMATION 03/08/2006 Overview: no spastic quadriparesis 09/19/2003 QUADRIPLEGIA, UNSPECIFIED 05/29/2003 Microcephalus 05/29/2003 Anemia 01/06/2003 Intellectual disability 10/30/2002 Overview: ICD-10 update of inactive term GERD (gastroesophageal reflux disease) 3 MENTAL-BEHAVIOR PROB NOS 10/30/2002 Other specified congenital anomaly of kidney Calculus of gallbladder with out mention of cholecystitis or obstruction documented as of this encounter (statuses as of 08/01/2023) Resolved Problems Problem Noted Date Diagnosed Date Resolved Date Other disorder of eating of nonorganic origin 06/07/20 10 01/07/2011 Generalized anxiety disorder 06/26/2007 10/09/2008 Overview: Resolved per Duplicate Protocol #2. CHRONIC RENAL FAILURE 01/06/20032005 documented as of this encounter (statuses as of 08/01/2023) Immunizations Name Administration Dates Next Due H1N1 2009 Influenza, IM 07/20/2009 PPD 02/04/2010,02/29/2008,02/17/2006 Pneumococcal Polysaccharide PPV23 (Pneumovax) 10/04/2006 Seasonal Influenza, Split, I IV3, With Preserve, Inj 07/12/2011,06/07/2010,06/05/2009,07/15,06/18/2007,06/21/2006 TDAP (age 11 and older)(Adacel) 02/11/2011 documented as of this encounter Social History Tobacco Use Types Packs/Day Years Used Date Smoking Tobacco: Never Smokeless Tobacco: Never Alcohol Use Standard Drinks/Week Comments No 0 (1 standard drink = 0.6 oz pur e alcohol) Sex and Gender Information Value Date Recorded Sex Assigned at Not on file Gender Identity Not on file Sexual Orientation Not on file Job Start Date Occupation Industry Not on file Not on file Not on file documented as of this encounter Miscellaneous Notes * Telephone Encounter - Renee Og RN - 08/01/2023 11:34 AM EST Yahaira from [employer] called. Pt was referred to Monique Gonsales (wound care). She recommended nystatin and kaltostat. Kaltostat was too expensive, but they are using nystatin with a dressing overtop. Says there is drainage around the tube. She was asking how much sterile water had been instilled in the balloon intially. She said there is 4 mL in now. At the bedside under sterile conditions, a 16 [place] 2.5 cm low-profile kinsey PEG tube was replaced. 6 mL of saline was insufflated and tube easily rotated, easily inserted, without issues. Told her there was intially 6 mL. Max per PEG booklet says 10 mL balloon. She says they will add a few mLs of sterile water to see if this helps with leaking. She will also contact PCP to see if he will rx calmoseptine as this has worked in the past. documented in this encounter Plan of Treatment Upcoming Encounters Date Type Department Care Team (Late st Contact Info) Description 10/31/2023 11:40 AM EST Office Visit Gastroenterology, [facility] [address] [place] [address] Ruben Ramos MD [address] [place] [address] Health Maintenance Due Date Last Done Comments Depression Screening 1967 Hepatitis C Screening 1973 Cologuard 2000 Fecal Occult Blood Test 2000 Sigmoidoscopy 2000 Lipid Panel 12/28/2016 12/29/2011, 07/12, 02/11/2011, Additional history exists Colonoscopy 05/26/2020 05/26/2010, 06/12/2007 Colorectal Cancer Screening 05/26/2020 DTaP,Tdap,and Td Vaccines (2 - Td or Tdap) 02/11/2021 02/11/2011, 03/15/2001, 03/15/2001 COVID-19 Vaccine (3 - season) 2023 11/06/2020, 10/16/2020 Influenza Vaccine (FLU shot) (#1) 2023 05/13/2020, 06/26/2019, 07/12/2011, Additional history exists Hepatitis B Completed 08/31/1983, 02/10, 02/10/1983 Zoster Vaccines Completed 08/19/2020, 05/13, 05/31/2020, Additional history exists Pneumococcal Vaccine: 65+ Years Completed 02/10/2021, 05/13/2020, 10/04/2006 GARDASIL-HPV IMMUNIZATION SERIES Aged Out No longer eligible based on patient's age to complete this topic MENINGOCOCCAL (MENACTRA/MENVEO) Aged Out No longer eligible based on patient's age to complete this topic documented as of this encounter Medical Devices Not on filedocumented as of this encounter Care Teams General Labor Relationship Specialty Start Date End Date Von Stewart MD [address] [place] [address] [place] [id number] PCP - General Internal Medicine 02/04/21 documented as of this encounter
--- OUTSIDE RECORDS SUMMARY | 2023-08-07 01:14 | External Medical Summary | Summary of Care ---
Author Name Unknown Organization [facility] Address [address] [place] [address] Phone [phone] Care Team Providers Care Bench Inspector Name Role Phone Von Stewart MD Primary Care Provi dung Reason for Visit * Reason Onset Date Comments Other 06/02/2023 Encounter Details Date Type Department Care Team Description 06/02/2023 Telephone Gastroenterology, [facility] [address] [place] [address] Shellie Hall, [address] [place] [address] Other Allergies Active Allergy Reactions Severity Noted Date Comments Neomycin-Polymyxin B Gu 07/01/2010 Aripiprazole 07/01/2010 Belladonna Alkaloids 07/01/2010 Clarithromycin 12/25/2002 Stomach upset Clarithromycin 07/01/2010 Glycopyrrolate Base 12/25/2002 Aggressive [place] 12/25/2002 Aggressive Macrolides And Ketolides 07/01/2010 Other - Drugs 07/01/2010 alkolide Risperidone 07/01/2010 Trazodone 12/08/2005 Swelling of face and hands, and aggressive documented as of this encounter (statuses as of 06/06/2023) Medications Medication Sig Dispensed Refills Start Date End Date Status MIRALAX PO POWDIndications:Other constipation Dissolve one heaping tablespoon in 8 [...] (peg tube). Apply topeg tube 0 Active Nystatin 414552 UNIT/GM External Powder (Nystop) Apply topically to affected area 3 times a day. Apply to as directed 0 Active Fluocinonide 0.05 % External Ointment [...] Oral Liquid Take by mouth. 0 Active Clotrimazole-Betameth asone 1-0.05 % External Cream Apply topically to [...] Chewable Take by mouth. 0 Activ e Sulfamethoxazole-Trim ethoprim 200-40 MG/5ML Oral Suspension (Bactrim) Take 5 mL by mouth in the morning and 5 mL before bedtime. Via the PEG TUBE. 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 CHRONIC RENAL FAILURE 01/06/2003 02/07/2006 documented as of this encounter (statuses as of 06/06/2023) Immunizations Name Administration Dates Next Due H1N1 [...] encounter Miscellaneous Notes * Addendum Note - Jen Howard RN - 06/06/2023 2:24 PM EDTAddended by: JEN HOWARD on: 06/06/2023 02:24 PM Modules accepted: Orders * Telephone Encounter - Jen Howard RN - 06/06/2023 1:39 PM EDT Rogelio dutton ks care nurse from [facility] calling back. Reports shruti their nurse for the halfway needs an order for Kaltostat and Nystatin powder BID. Reports they have the Nystatin powder but need and order / direction to use it more often (BID). She thinks [facility] on [address] carries Kaltostat. I called [facility] and they reported they do not have any available. It looks like the [facility] uses [facility]. I called them and they have the 2x2 version available. Pended. Also pended Nystatin already listed on his medication list to say BID. Dr. Hall is this something you are willing to order? * Telephone Encounter - Jen Howard RN - 06/02/2023 1:44 PM EDT I received a fax from Rogelio Gonsales at [facility]. Sent to scanning. Ready facility needs orders for dressingsaround the PEG tube. I wanted to clarify further . I am not sure what the second recommendation wasas I can not read the writing. Also wanted to know if shed like Dr. Hall to order this. Do they usually come from a [employer]? If Dr. Hall is unwilling to order and wound care can't. Maybe PCP will order. I left a message for rogelio to call me back. Sent fax to scanning. documented in this encounter Plan of Treatment Upcoming Encounters Date Type Specialty Care Team Description 10/31/2023 Office Visit Gastroenterology Ruben Ramos MD [address] [facility] [place] [address] Health Maintenance Due Date Last Done Comments [...] body documented in this encounter Care Teams Bench Inspector Relationship Specialty Start Date End Date Von Stewart MD [address] [place], [place] [address] [address] PCP - General Internal Medicine 02/04/21 documented as of this encounter
--- OUTSIDE RECORDS SUMMARY | 2023-08-07 01:14 | External Medical Summary | Summary of Care ---
Author Name Unknown Organization [facility] Address [address] [place] [address] Phone [phone] Care Team Providers Care Paper Cutting Machine Operator Name Role Phone Von Stewart MD Primary Care Provi dung Reason for Visit * Reason Onset Date Comments Other 06/02/2023 Encounter Details Date Type Department Care Team Description 06/02/2023 Telephone Gastroenterology, [facility] [address] [place] [address] Shellie Hall, [address] [place] [address] Other Allergies Active Allergy Reactions Severity Noted Date Comments Neomycin-Polymyxin B Gu 07/01/2010 Aripiprazole 07/01/2010 Belladonna Alkaloids 07/01/2010 Clarithromycin 12/25/2002 Stomach upset Clarithromycin 07/01/2010 Glycopyrrolate Base 12/25/2002 Aggressive [place] 12/25/2002 Aggressive Macrolides And Ketolides 07/01/2010 Other [...] tube). Apply topeg tube 0 Active Nystatin 724253 UNIT/GM External Powder (Nystop) Apply topically to [...] encounter Miscellaneous Notes * Telephone Encounter - KIKO Vick - 06/09/2023 10:23 AM EDT Yahaira ids calling from the [facility] wanting to know if the prescriptions were called in for him she can be reached at [phone] he will be out of his today * Telephone Encounter - Jen Howard RN - 06/07/2023 8:43 AM EDT TT sent to Dr. Hall to see if this is somwthing she would be willing to order or shed like to refer to PCP * Addendum Note - Jen Howard RN - 06/06/2023 2:24 PM EDTAddended by: JEN HOWARD on: 06/06/2023 02:24 PM Modules accepted: Orders * Telephone Encounter - Jen Howard RN - 06/06/2023 1:39 PM EDT Rogelio dutton la care nurse from [facility] calling back. Reports yahaira their nurse for the [facility] needs an order for Kaltostat and Nystatin powder BID. Reports they have the Nystatin powder but need and order / direction to use it more often (BID). She thinks [facility] on [address] carries Kaltostat. I called [facility] care and they reported they do [...] received a fax from Rogelio Gonsales at [facility]. Sent to scanning. Ready facility needs orders for dressingsaround the PEG tube. I wanted to clarify further . I am not sure what the second recommendation wasas I can not read the writing. Also wanted to know if shed like Dr. Hall to order this. Do they usually come from a [email or web address] company? If Dr. Hall is unwilling to order and wound care can't. Maybe PCP will order. I left a message for rogelio to call me back. Sent fax to scanning. documented in this encounter Plan of Treatment Upcoming Encounters Date Type Specialty Care Team Description 10/31/2023 Office Visit Gastroenterology Ruben Ramos MD [address] [place] [address] Health Maintenance Due Date Last Done Comments [...] body documented in this encounter Care Teams Paper Cutting Machine Operator Relationship Specialty Start Date End Date Von Stewart MD [address] [place] [address] PCP - General Internal Medicine 02/04/21 documented as of this encounter
--- OUTSIDE RECORDS SUMMARY | 2023-08-07 01:14 | External Medical Summary | Summary of Care ---
Author Name Unknown Organization [facility] Address [address] [place] [address] Phone [phone] Care Team Providers Care Five Roll Refiner Batch Mixer Name Role Phone Von Stewart MD Primary Care Provi dung Reason for Visit * Reason Onset Date Comments Other 06/02/2023 Encounter Details Date Type Department Care Team Description 06/02/2023 Telephone Gastroenterology, [facility] [address] [place] [address] Shellie Hall, [address] [place] [address] Other Allergies Active Allergy Reactions Severity Noted Date Comments Neomycin-Polymyxin B Gu 07/01/2010 Aripiprazole 07/01/2010 Belladonna Alkaloids 07/01/2010 Clarithromycin 12/25/2002 Stomach upset Clarithromycin 07/01/2010 Glycopyrrolate Base 12/25/2002 Aggressive [place] 12/25/2002 Aggressive Macrolides And Ketolides 07/01/2010 Other - Drugs 07/01/2010 alkolide Risperidone 07/01/2010 Trazodone 12/08/2005 Swelling of face and hands, and aggressive documented as of this encounter (statuses as of 06/08/2023) Medications Medication Sig Dispensed Refills Start Date [...] tube). 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 CHRONIC RENAL FAILURE 01/06/2003 02/07/2006 documented as of this encounter (statuses as of 06/08/2023) Immunizations Name Administration Dates Next Due H1N1 [...] encounter Miscellaneous Notes * Telephone Encounter - Jen Howard RN [...] RN - 06/06/2023 1:39 PM EDT Rogelio udtton ne care nurse from [facility] calling back. Reports shruti their nurse for the senior living needs an order for Kaltostat and Nystatin powder BID. Reports they have the Nystatin powder but need and order / direction to use it more often (BID). She thinks [facility] on [address] carries Kaltostat. I called [facility] and they reported they do not have any available. It looks like the patient uses [facility]. I called them and they have the 2x2 version available. Pended. Also pended Nystatin already listed on his medication list to say BID. Dr. Hall is this something you are willing to order? * Telephone Encounter - Jen Howard RN - 06/02/2023 1:44 PM EDT I received a fax from Rogelio Gonsales at [facility]. Sent to scanning. Ready facility needs orders for dressingsaround the PEG tube. I wanted to clarify further . I am not sure what the second recommendation wasas I can not read the writing. Also wanted to know if shed like Dr. Hall to order this. Do they usually come from a [employer]? If Dr. Hall is unwilling to order and wound care can't. Maybe PCP will order. I left a message for rogelio to call me back. Sent fax to scanning. documented in this encounter Plan of Treatment Upcoming Encounters Date Type Specialty Care Team Description 10/31/2023 Office Visit Gastroenterology Ruben Ramos MD [address] [facility] [place] [address] Health Maintenance Due Date Last Done Comments [...] body documented in this encounter Care Teams Five Roll Refiner Batch Mixer Relationship Specialty Start Date End Date Von Stewart MD [address] [place] [address] [place] [id number] PCP - General Internal Medicine 02/04/21 documented as of this encounter
--- OUTSIDE RECORDS SUMMARY | 2023-08-07 01:14 | External Medical Summary | Summary of Care ---
Author Name Unknown Organization [facility] Address [address] [place] [address] Phone [phone] Care Team Providers Care Alto Singer Name Role Phone Von Stewart MD Primary Care Provi dung Reason for Visit * Reason Onset Date Comments Other 06/02/2023 Encounter Details Date Type Department Care Team Description 06/02/2023 Telephone Gastroenterology, [facility] [address] [place] [address] Shellie Hall, [address] [place] [address] Other Allergies Active Allergy Reactions Severity Noted Date Comments Neomycin-Polymyxin B Gu 07/01/2010 Aripiprazole 07/01/2010 Belladonna Alkaloids 07/01/2010 Clarithromycin 12/25/2002 Stomach upset Clarithromycin 07/01/2010 Glycopyrrolate Base 12/25/2002 Aggressive [place] 12/25/2002 Aggressive Macrolides And Ketolides 07/01/2010 Other - Drugs 07/01/2010 alkolide Risperidone 07/01/2010 Trazodone 12/08/2005 Swelling of face and hands, and aggressive documented as of this encounter (statuses as of 06/07/2023) Medications Medication Sig Dispensed Refills Start Date [...] tube). 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 CHRONIC RENAL FAILURE 01/06/2003 02/07/2006 documented as of this encounter (statuses as of 06/07/2023) Immunizations Name Administration Dates Next Due H1N1 [...] - 06/06/2023 1:39 PM EDT Rogelio dutton dc care nurse from [facility] calling back. Reports shruti [facility] for the [facility] needs an order for Kaltostat and Nystatin powder BID. Reports they have the Nystatin powder but need and order / direction to use it more often (BID). She thinks [facility] on [address] carries Kaltostat. I called [facility] and they reported they do not have any available. It looks like the patient uses [facility]. I called them and they have the 2x2 version available. Pended. Also pended Nystatin already listed on his medication list to say BID. Dr. Hall is this something you are willing to order? * Telephone Encounter - Jen Howard RN - 06/02/2023 1:44 PM EDT I received a fax from Rogelio Gonsales at [facility]. Sent to scanning. Ready facility needs orders for dressingsaround the PEG tube. I wanted to clarify further . I am not sure what the second recommendation wasas I can not read the writing. Also wanted to know if shed like Dr. Hall to order this. Do they usually come from a [employer]? If Dr. Hall is unwilling to order and wound care can't. Maybe PCP will order. I left a message for rogelio to call me back. Sent fax to scanning. documented in this encounter Plan of Treatment Upcoming Encounters Date Type Specialty Care Team Description 10/31/2023 Office Visit Gastroenterology Ruben Ramos MD [address] [facility] [place] [address] Health Maintenance Due Date Last Done Comments [...] body documented in this encounter Care Teams Alto Singer Relationship Specialty Start Date End Date Von Stewart MD [address] [place] [address] [place] [id number] PCP - General Internal Medicine 02/04/21 documented as of this encounter
--- OUTSIDE RECORDS SUMMARY | 2023-08-07 01:14 | External Medical Summary | Summary of Care ---
Author Name Unknown Organization [facility] Address [address] [place] [address] Phone [phone] Care Team Providers Care Transfusion Nurse Name Role Phone Von Stewart MD Primary Care Provi dung Reason for Visit * Reason Onset Date Comments Other 06/02/2023 Encounter Details Date Type Department Care Team Description 06/02/2023 Telephone Gastroenterology, [facility] [address] [place] [address] Shellie Hall, [address] [place] [address] Other Allergies Active Allergy Reactions Severity Noted Date Comments Neomycin-Polymyxin B Gu 07/01/2010 Aripiprazole 07/01/2010 Belladonna Alkaloids 07/01/2010 Clarithromycin 12/25/2002 Stomach upset Clarithromycin 07/01/2010 Glycopyrrolate Base 12/25/2002 Aggressive [place] 12/25/2002 Aggressive Macrolides And Ketolides 07/01/2010 Other [...] tube). Apply topeg tube 0 Active Nystatin 395935 UNIT/GM External Powder (Nystop) Apply topically to [...] - 06/06/2023 1:39 PM EDT Rogelio dutton [place] care nurse from [facility] calling back. Reports shruti their nurse for the custodial needs an order for Kaltostat and Nystatin [...] received a fax from Rogelio Gonsales at [facility]. Sent to scanning. Ready facility needs orders for dressingsaround the PEG tube. I wanted to clarify further . I am not sure what the second recommendation wasas I can not read the writing. Also wanted to know if shed like Dr. Hall to order this. Do they usually come from a [employer]? If Dr. Hall is unwilling to order and wound care can't. Maybe PCP will order. I left a message for rogelio to call me back. Sent fax to scanning. documented in this encounter Plan of Treatment Upcoming Encounters Date Type Specialty Care Team Description 10/31/2023 Office Visit Gastroenterology Ruben Ramos MD [address] [facility] [place] [address] Health Maintenance Due Date Last Done Comments [...] body documented in this encounter Care Teams Transfusion Nurse Relationship Specialty Start Date End Date Von Stewart MD [address] [place], [place] [address] [address] PCP - General Internal Medicine 02/04/21 documented as of this encounter
--- OUTSIDE RECORDS SUMMARY | 2023-08-07 01:14 | External Medical Summary | Summary of Care ---
Author Name Unknown Organization [facility] Address [address] [place] [address] Phone [phone] Care Team Providers Care Wellness Rn Name Role Phone Von Stewart MD Primary Care Provi dung Reason for Visit * Reason Onset Date Comments Other 06/02/2023 Encounter Details Date Type Department Care Team Description 06/02/2023 Telephone Gastroenterology, [facility] [address] [place] [address] Shellie Hall, [address] [place] [address] Other Allergies Active Allergy Reactions Severity Noted Date Comments Neomycin-Polymyxin B Gu 07/01/2010 Aripiprazole 07/01/2010 Belladonna Alkaloids 07/01/2010 Clarithromycin 12/25/2002 Stomach upset Clarithromycin 07/01/2010 Glycopyrrolate Base 12/25/2002 Aggressive [place] 12/25/2002 Aggressive Macrolides And Ketolides 07/01/2010 Other [...] tube). Apply topeg tube 0 Active Nystatin 549095 UNIT/GM External Powder (Nystop) Apply topically to [...] - 06/06/2023 1:39 PM EDT Rogelio dutton pa care nurse from [facility] calling back. Reports shr[facility] needs an order for Kaltostat and Nystatin powder BID. Reports they have the Nystatin powder but need and order / direction to use it more often (BID). She thinks [facility] on [address] carries Kaltostat. I called [facility] and they reported they do not have any available. It looks like the patient uses [facility]. I called them and they have the 2x2 version available. Pended. Also pended Nystatin already listed on his medication list to say BID. Dr. Hall is this something you are willing to order? * Telephone Encounter - Jen Howard RN - 06/02/2023 1:44 PM EDT I received a fax from Rogelio Gonsales at [facility]. Sent to scanning. Ready facility needs orders for dressingsaround the PEG tube. I wanted to clarify further . I am not sure what the second recommendation wasas I can not read the writing. Also wanted to know if shed like Dr. Hall to order this. Do they usually come from a [employer]? If Dr. Hall is unwilling to order and wound care can't. Maybe PCP will order. I left a message for rogelio to call me back. Sent fax to scanning. documented in this encounter Plan of Treatment Upcoming Encounters Date Type Specialty Care Team Description 10/31/2023 Office Visit Gastroenterology Ruben Ramos MD [address] [facility] [place] [address] Health Maintenance Due Date Last Done Comments [...] body documented in this encounter Care Teams Wellness Rn Relationship Specialty Start Date End Date Von Stewart MD [address] [place] [address] [place] [id number] PCP - General Internal Medicine 02/04/21 documented as of this encounter
--- OUTSIDE RECORDS SUMMARY | 2023-08-07 01:15 | External Medical Summary | Summary of Care ---
Author Name Unknown Organization [facility] Address [address] [place] [address] Phone [phone] Care Team Providers Care Dial Buffer Name Role Phone Von Stewart MD Primary Care Provi dung Reason for Visit * Reason Onset Date Comments Advice 04/04/2023 Encounter Details Date Type Department Care Team Description 04/04/2023 Telephone Gastroenterology, [facility] [address] [place] [address] Yadiel Cerda MD [address] [place] [address] Advice Allergies Active Allergy Reactions Severity Noted Date Comments Neomycin-Polymyxin B Gu 07/01/2010 Aripiprazole 07/01/2010 Belladonna Alkaloids 07/01/2010 Clarithromycin 12/25/2002 Stomach upset Clarithromycin 07/01/2010 Glycopyrrolate Base 12/25/2002 Aggressive [place] 12/25/2002 Aggressive Macrolides And Ketolides 07/01/2010 Other - Drugs 07/01/2010 alkolide Risperidone 07/01/2010 Trazodone 12/08/2005 Swelling of face and hands, and aggressive documented as of this encounter (statuses as of 04/05/2023) Medications Medication Sig Dispensed Refills Start Date [...] tube). Apply topeg tube 0 Active Nystatin 635542 UNIT/GM External Powder (Nystop) Apply topically to [...] Active Docusate Sodium 50 MG/5ML Oral Liquid (Colace) Take 5 mL by mouth in the morning. 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 CHRONIC RENAL FAILURE 01/06/2003 02/07/2006 documented as of this encounter (statuses as of 04/05/2023) Immunizations Name Administration Dates Next Due H1N1 [...] Miscellaneous Notes * Telephone Encounter - KIKO Watson - 04/05/2023 8:15 AM EDT Pt already scheduled on 05/05 w/ annette for the soonest appt with anyone in the office. Added to waitlist for COMMERCIAL ARTIST's incase something would open sooner * Telephone Encounter - Yadiel Cerda MD - 04/04/2023 5:12 PM EDT I have only seen the patient for PEG tube exchanges. Please schedule him an office visit with a midlevel. * Telephone Encounter - Kristie Pacheco LPN - 04/04/2023 11:36 AM EDT Did call nurse back( we had gotten busy and finally had a chance to call back) and left her know that msg was sent to provider and when we here something someone from our office will call her back , if he has anything further that he would suggest. Nurses; her call back number is [phone] * Telephone Encounter - Kristie Pacheco LPN - 04/04/2023 8:56 AM EDT Pt lives in a skills home. Pt [employer] ST[employer] ARCHITECT, geo, called told me that this pt normally has issues with constipation, only have one BM every 3-4 days, but that his PCP had recently ordered miralax for him. Now stating that she received a msg from her car shifter nurse, that this pt is having loose stools. [employer] ST[employer] ARCHITECT calling asking us what we can do about his loose bowels, when asking [employer] STORAGE ARCHITECT questions regarding his bowel, like how many loose stools, how often, ect. And his medications, She could not provide any information or what was provided was very vague about anything I asked her. So I asked that I could call the skills employee that would know more information, so I could give a better report to the provider.She gave me the home number listed in the chart. I proceeded to calland speak with a kaylye - employee that was working with this pt on the day shift. Kayley told sitaat she is not sure why we received a call from the [employer] STOR[employer] ARCHITECT geo, stating that he had one bad episodeon Monday and again last night that she could see in the kioss but that she doesn't work car shifter and that is the shift that had complained. Kayley also informed me that the order from the PCP states " hold for loose stools" and was not that concerned because he also has an imodium order. They were to hold for loose stools and give one imodium. This was not devolged to me by the [employer] STOR[employer] ARCHITECT when she called and not stated that way on his med list that we currently have. This nurse than called back geo and told her what kayley told me- about the miralax order and imodium and asked what exactly was she wanting us to do, since he had only had one loose stool a day since starting the mirarlax.and also that kayley was not concerned- stating that she was not sure why geo called me. I asked goe to sample puller, because I could tell she was driving, than spoke with her regarding this and asked, what is it that she wanted me to do if they had this order to hold and pt had just started this miralax a few days ago, pt may need to let the medication run its course.Geo told me that she "needed documentation that if I was not concerned that they are a state driven facility and that she needed documentation that I sent to the provider and he doesn't also feel its a concern and that it needed to be faxed to her." I explained to her that I would not do that without sending something to my procider , I would send this to the provider to see if he was worried about needing an x ray or anything else, but that I had very vague information to give the provider. TANO called me "rude" and hung up on me. Dr De Oliveira, Any advice or thoughts? Do you feel an x ray is necessary? Pt does have a history of c diff, no recent antibiotics, no blood or mucous in stools, no abd pain or distention noted when spoke to the healthcare economics consultant kayley. documented in this encounter Plan of Treatment Upcoming Encounters Date Type Specialty Care Team Description 05/05/2023 Office Visit Gastroenterology Ruben Ramos MD [address] [place] [address] Health Maintenance Due Date Last Done Comments Depression Screening, Annual for Pts 12 and Over 1967 Hepatitis C Screening 1973 Cologuard 2000 Fecal Occult Blood Test 2000 Sigmoidoscopy 2000 Lipid Panel 12/28/2016 12/29/2011, 07/12, 02/11/2011, Additional history exists Diabetes Screening 01/13/2018 01/13/2015, 0 06/10/2013, 10/27/2012, Additional history exists Pneumococcal Vaccine: 65+ Years [...] filedocumented as of this encounter Care Teams Dial Buffer Relationship Specialty Start Date End Date Von Stewart MD [address] [place], [place] [address] [id number] PCP - General Internal Medicine 02/04/21 documented as of this encounter
--- OUTSIDE RECORDS SUMMARY | 2023-08-07 01:15 | External Medical Summary | Summary of Care ---
Author Name Unknown Organization [facility] Address [address] [place] [address] Phone [phone] Care Team Providers Care Aircraft Line Assembler Name Role Phone Von Stewart MD Primary Care Provi dung Reason for Visit * Reason Comments Constipation Encounter Details Date Type Department Care Team Description 03/03/2023 Convenient Care Visit [facility] [address] [place] [address] Lizzy Blancas PA-C [address], [place] [id number] Constipation, unspecified constipation type* Allergies Active Allergy Reactions Severity Noted Date Comments Neomycin-Polymyxin B Gu 07/01/2010 Aripiprazole 07/01/2010 Belladonna Alkaloids 07/01/2010 Clarithromycin 12/25/2002 Stomach upset Clarithromycin 07/01/2010 Glycopyrrolate Base 12/25/2002 Aggressive [place] 12/25/2002 Aggressive Macrolides And Ketolides 07/01/2010 Other - Drugs 07/01/2010 alkolide Risperidone 07/01/2010 Trazodone 12/08/2005 Swelling of face and hands, and aggressive documented as of this encounter (statuses as of 03/04/2023) Medications Medication Sig Dispensed Refills Start Date [...] tube). 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 CHRONIC RENAL FAILURE 01/06/2003 02/07/2006 documented as of this encounter (statuses as of 03/04/2023) Immunizations Name Administration Dates Next Due H1N1 2009 Influenza, IM 07/20/2009 PPD 02/04/2010,02/29/2008,02/17/2006 Pneumococcal Polysaccharide PPV23 (Pneumovax) 10/04/2006 Seasonal Influenza, Split, I IV3, With Preserve, Inj 07/12/2011,06/07/2010,06/05/2009,07/15,06/18/2007,06/21/2006 TDAP (age 11 and older)(Adacel) 02/11/2011 documented as of this encounter Social History Tobacco Use Types Packs/Day Years Used Date Smoking Tobacco: Never Smokeless Tobacco: Never Tobacco Cessation:Counseling Given: Not Answered Alcohol Use Standard Drinks/Week Comments No 0 (1 standard drink = 0.6 oz pur e alcohol) Sex Assigned at Date Recorded Not on file Job Start Date Occupation Industry Not on file Not on file Not on file documented as of this encounter Last Filed Vital Signs Vital Sign Reading Time Taken Comments Blood Pressure 146/70 03/03/2023 5:07 PM EDT Pulse 71 03/03/2023 5:07 PM EDT Temperature 36.8 C (98.2 F) 03/03/2023 5:07 PM ED T Respiratory Rate 18 03/03/2023 5:07 PM EDT Oxygen Saturation 95% 03/03/2023 5:07 PM EDT Inhaled Oxygen Concentration - - Weight 74.7 kg (164 lb 11.2 oz) 023 5:07 PM EDT Height 165.1 cm (5' 5") 03/03/2023 5:07 PM EDT Body Mass Index 27.41 03/03/2023 5:07 PM EDT documented in this encounter Progress Notes * Lizzy Blancas PA-C - 03/03/2023 5:21 PM EDT Marty Simms is a 67 year old year old male who presents for : No chief complaint on file. Nursing Notes: Anat Dominguez, TANO 03/03/23 [id number] Signed Marty Simms,is a 67 year old male, who presents to the walk in clinic today c/o constipation.Had suppository on 02/28/23 with some hard stool result and then on 03/01/23 had large loose stool. Started colace three days ago. Increased fluids. Has not had bowel movement in two days. HPI: Pt here for constipation. He is here with his caregiver. He lives in his own apt but has skills provider with him all the time. The history is provided by the caregiver. He has a bowel protocol to follow. Had suppository on 02/28/23 with some hard stool as a result. Then 03/01/23 had a loose stool, she doesn't know how much because it was the opposite shift documenting. They started colace 3 days ago and increased his fluids. No BM in the last 2 days. She just wantedto be sure belly sounded okay. He seems to want to be bent over more than normal at times, sometimes indicated discomfort. He has PEG tube. No problems with this. No fever, vomiting. REVIEW OF SYSTEMS: See HPI for pertinent positives and negatives. caregiver denies addtional complaints. 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 Calculus of gallbladder without mention of cholecystitis or obstruction K80.20 ADVANCE DIRECTIVE INFORMATION EPILEPSY;NONCONV,WITH INTRACTABLE G40.319 Generalized anxiety disorder F41.1 Intestinal infection due to Clostridium difficile A04.72 ASPIRATION PNEUMONIA BACTERIAL,SPECIFIED J15.8 DYSPHAGIA FUNCTIONAL F44.9 Feeding problem R63.39 Anemia D64.9 Family History Problem Relation Age of Onset Heart Disorder Father [place] Cancer Father Arthritis Mother Mental Disorder Sister MR, microcephaly Mental Disorder Sister Microcephaly neurosurgery Review of patient's allergies indicates: Allergen Reactions Antibiotic [Neomycin-Polymyxin B Gu] Aripiprazole Belladonna Alkaloids Clarithromycin Stomach upset Clarithromycin Glycopyrrolate Base Aggressive [place] Aggressive Macrolides And Ketolides Other - Drugs alkolide Risperidone Trazodone Swelling of face and hands, and aggressive Current Outpatient Medications Medication Sig Dispense Refill MIRALAX PO POWD Dissolve one heaping tablespoon in 8 ounces of water or juice - one dose twice daily till bm then every 3 days if no bm 1 Bottle 2 cloZAPine 100 MG Oral Tablet Take 0.5 Tablets by mouth in the morning. 50mg In the morning. cloZAPine 100 MG Oral Tablet Take 1 Tablet by mouth in the morning. 100mg at bedtime and a 25 mg at night. Cyanocobalamin (VITAMIN B-12) 1000 MCG Tablet Administer 1 Tablet into PEG tube in the morning. Lactobacillus (PROBIOTIC ACIDOPHILUS) TABS Administer 1 Tab into PEG tube 2 times a day. Multiple Vitamins-Minerals (CENTAMIN) LIQD Administer 15 mL into PEG tube daily. Chlorhexidine Gluconate 0.12 % Mouth/Throat Solution Apply 1 mL to inside of cheek in the morning and 1 mL before bedtime. Use toothette to swab teeth and gums two times per day. Cetirizine HCl 10 MG Oral Tablet Take 1 Tablet by mouth in the morning. Calmoseptine 0.44-20.6 % External Ointment (Menthol-Zinc Oxide) Apply topically to affected area as needed (peg tube). Apply topeg tube Nystatin 870172 UNIT/GM External Powder (Nystop) Apply topically to affected area 3 times a day. Apply to as directed Triple Antibiotic 3.5-400-5000 External Ointment Apply topically to affected area once. Apply to as ordered Desitin External Ointment Apply topically to affected area. Apply to as ordered Furosemide 10 MG/ML Oral Solution (Lasix) Take 4 mL by mouth in the morning. As needed . Boost Breeze Oral Liquid Take by mouth. Clotrimazole-Betamethasone 1-0.05 % External Cream Apply topically to affected area 2 times a day. Apply to as ordered Bisacodyl 10 MG Rectal Suppository (Dulcolax) Allopurinol 100 MG Oral Tablet (Zyloprim) .COMPLEX Ibuprofen 100 MG/5ML Oral Suspension (Motrin) Docusate Sodium 50 MG/5ML Oral Liquid (Colace) Take 5 mL by mouth in the morning. Fluocinonide 0.05 % External Ointment Apply topically to affected area 2 times a day. Apply to as directed Hydrocortisone Butyr Lipo Base 0.1 % External Cream Apply topically to affected area. Apply to as needed Loperamide HCl 2 MG Oral Capsule Take 1 Capsule by mouth 4 times a day as needed for Diarrhea. Alum & Mag Hydroxide-Simeth 200-200-20 MG/5ML Oral Suspension (Maalox Max) Take by mouth every 6 hours as needed for Indigestion. Acetaminophen 160 MG/5ML Oral Suspension (Tylenol) Take by mouth every 4 hours as needed. Eucerin External Cream Apply topically to affected area as needed for Dry Skin. Apply to as ordered (Patient not taking: Reported on 03/03/2023) Fluocinonide Emulsified Base 0.05 % External Cream predniSONE 5 MG/5ML Oral Solution No current facility-administered medications for this visit. Nursing Notes and Vital Signs reviewed. PHYSICAL EXAM: VITALS: BP 146/70 (BP Site: Left Arm, BP Position: Sitting, BP Cuff Size: Regular) | Pulse 71 | Temp 36.8 C (98.2 F) (Tympanic) | Resp 18 | Ht 1.651 m (5' 5") | Wt 74.7 kg (164 lb 11.2 oz) | MmS286% | BMI 27.41 kg/m | BSA 1.85 m GENERAL: Nontoxic, no obvious distress, appears comfortable LUNGS: No wheezes. Normal respiratory rate. HEART: RRR, no murmurs ABDOMEN: Soft, nontender + bowel sounds in 4 quadrants. No M/R/G. PEG tube site visualized without appearance of infection. SKIN: Normal, no rashes and no bruising. Assessment: Constipation, unspecified constipation type (Primary) no red flags on exam today. Advised to add miralax and continue colace and fluids. Caregiver reassured and form completed for skills. Follow up with PCP if symptoms worsen or persist. Lizzy Blancas PA-C [facility] [address] [facility] [id number] documented in this encounter Nursing Notes * Anat Dominguez LPN - 03/03/2023 5:16 PM EDT Marty Simms,is a 67 year old male, who presents to the walk in clinic today c/o constipation.Had suppository on 02/28/23 with some hard stool result and then on 03/01/23 had large loose stool. Started colace three days ago. Increased fluids. Has not had bowel movement in two days. documented in this encounter Plan of Treatment Upcoming Encounters Date Type Specialty Care Team Description 05/05/2023 Office Visit Gastroenterology Ruben Ramos MD [address] [place] [address] Health Maintenance Due Date Last Done Comments Depression Screening, Annual for Pts 12 and Over 1967 Hepatitis C Screening 1973 Cologuard 2000 Fecal Occult Blood Test 2000 Sigmoidoscopy 2000 Pneumococcal Vaccine: 65+ Years (2 - PCV) 10/04/2007 10/04/2006 Lipid Panel 12/28/2016 12/29/2011, 07/12, 02/11/2011, Additional history exists Diabetes Screening 01/13/2018 01/13/2015, 0 06/10/2013, 10/27/2012, Additional history exists Colonoscopy 05/26/2020 05/26/2010, 06/12/2007 Colorectal Cancer Screening 05/26/2020 COVID-19 Vaccine (3 - Pfizer series) 01/01/2021 11/06/2020, 10/16/2020 DTaP,Tdap,and Td Vaccines (2 - Td or Tdap) 02/11/2021 02/11/2011, 03/15/2001, 03/15/2001 Influenza Vaccine (FLU shot) (Season Ended) 2023 05/13/2020, 06/26/2019, 07/12/2011, Additional history exists [...] as of this encounter Visit Diagnoses Diagnosis Constipation, unspecified constipation type- Primary documented in this encounter Care Teams Aircraft Line Assembler Relationship Specialty Start Date End Date Von Stewart MD [address] [place] [address] [place] [address] PCP - General Internal Medicine 02/04/21 documented as of this encounter
--- OUTSIDE RECORDS SUMMARY | 2023-08-07 01:15 | External Medical Summary | Summary of Care ---
Author Name Unknown Organization [facility] Address [address] [place] [address] Phone [phone] Care Team Providers Care Seam Stayer Name Role Phone Von Stewart MD Primary Care Provi dung Reason for Visit * Reason Comments Follow Up G tube change, pt an d skills provide the g tube Encounter Details Date Type Department Care Team Description 05/05/2023 Office Visit Gastroenterology, [facility] [address] [facility] [place] [address] Ruben Ramos MD [address] [facility] [place] [address] PEG (percutaneous endoscopic gastrostomy) adjustment/replacement /removal (HCC)* Allergies Active Allergy Reactions Severity Noted Date Comments Neomycin-Polymyxin B Gu 07/01/2010 Aripiprazole 07/01/2010 Belladonna Alkaloids 07/01/2010 Clarithromycin 12/25/2002 Stomach upset Clarithromycin 07/01/2010 Glycopyrrolate Base 12/25/2002 Aggressive [place] 12/25/2002 Aggressive Macrolides And Ketolides 07/01/2010 Other - Drugs 07/01/2010 alkolide Risperidone 07/01/2010 Trazodone 12/08/2005 Swelling of face and hands, and aggressive documented as of this encounter (statuses as of 05/05/2023) Medications Medication Sig Dispensed Refills Start Date [...] tube). Apply topeg tube 0 Active Nystatin 196303 UNIT/GM External Powder (Nystop) Apply topically to [...] Chewable Take by mouth. 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 CHRONIC RENAL FAILURE 01/06/2003 02/07/2006 documented as of this encounter (statuses as of 05/05/2023) Immunizations Name Administration Dates Next Due H1N1 [...] Sign Reading Time Taken Comments Blood Pressure 158/72 05/05/2023 2:51 PM EDT Pulse 83 05/05/2023 2:51 PM EDT Temperature 36.6 C (97.8 F) 05/05/2023 2:51 PM ED T Respiratory Rate - - Oxygen Saturation 96% 05/05/2023 2:51 PM EDT Inhaled Oxygen Concentration - - Weight 67 kg (147 lb 9.6 oz) 05/05/2023 2:51 PM EDT Height - - Body Mass Index 24.56 03/03/2023 5:07 PM EDT documented in this encounter Progress Notes * Ruben Ramos MD - 05/05/2023 3:24 PM EDT Von Stewart MD Ref: VON STEWART[] [address] [place] [address] (office) [phone] (fax) Dear Von Stewart MD History of Present Illness: CC: PEG exchange HPI: 68 year old male patient with below medical comorbids, referred to the GI clinic for routine PEG tube exchange. Denies any issues with his current PEG. His aid is with him. 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 50mg In the morning. cloZAPine 100 MG Oral Tablet Take 1 Tablet by mouth in the morning. 100mg at bedtime and a 25 mg atnight. Acetaminophen 160 MG/5ML Oral Suspension (Tylenol) Take by mouth every 4 hours as needed. Boost Breeze Oral Liquid Take by mouth. Allopurinol 100 MG Oral Tablet (Zyloprim) .COMPLEX Acidophilus Oral Tablet Chewable Take by mouth. MIRALAX PO POWD Dissolve one heaping tablespoon in 8 ounces of water or juice - one dose twice daily till bm then every 3 days if no bm 1 Bottle 2 Cyanocobalamin (VITAMIN B-12) 1000 MCG Tablet Administer [...] (Menthol-Zinc Oxide) Apply topically to affected area asneeded (peg tube). Apply topeg tube Nystatin 183017 UNIT/GM External Powder (Nystop) Apply topically to affected area 3 times a day. Apply to as directed Fluocinonide 0.05 % External Ointment Apply topically [...] every 6 hours as needed for Indigestion. Triple Antibiotic 3.5-400-5000 External Ointment Apply topically to affected area once. Apply to asordered Desitin External Ointment Apply topically to affected area. Apply to as ordered Eucerin External Cream Apply topically to affected area as needed for Dry Skin. Apply to as ordered(Patient not taking: Reported on 03/03/2023) Furosemide 10 MG/ML Oral Solution (Lasix) Take 4 mL by mouth in the morning. As needed . Clotrimazole-Betamethasone 1-0.05 % External Cream Apply topically to affected area 2 times a day. Apply to as ordered Bisacodyl 10 MG Rectal Suppository (Dulcolax) Fluocinonide Emulsified Base 0.05 % External Cream predniSONE 5 MG/5ML Oral Solution Ibuprofen 100 MG/5ML Oral Suspension (Motrin) Docusate Sodium 50 MG/5ML Oral Liquid (Colace) Take 5 mL by mouth in the morning. No current facility-administered medications for this visit. Past Medical History: Diagnosis Date Calculus of [...] DR. DARREN SPEAR SKULL SUTURES Social History Social History Narrative Not on file Family History Problem Relation Age of Onset Heart Disorder Father [place] Cancer Father Arthritis Mother Mental Disorder Sister MR, microcephaly Mental Disorder Sister Microcephaly neurosurgery Review of patient's allergies indicates: Allergen Reactions Antibiotic [Neomycin-Polymyxin B Gu] Aripiprazole Belladonna Alkaloids Clarithromycin Stomach upset Clarithromycin Glycopyrrolate Base Aggressive [place] Aggressive Macrolides And Ketolides Other - Drugs alkolide Risperidone Trazodone Swelling of face and hands, and aggressive Review of Systems: unobtainable OBJECTIVE: Physical Exam: BP 158/72 | Pulse 83 | Temp 36.6 C (97.8 F) | Wt 67 kg (147 lb 9.6 oz) | SpO2 96% | BMI 24.56 kg/m | BSA 1.75 m General: alert, healthy, no distress Head: Normocephalic Eye Exam: PERRLA, EOMI, Conjunctiva are pink and non-injected, sclera clear Ears: External ears normal Heart: regular rate & rhythm, no murmurs and no gallops Lungs: clear to auscultation Abdomen: abdomen soft, non-tender, normal bowel sounds and no masses or organomegaly Extremities: no edema, no clubbing, no cyanosis Neuro Exam: alert & oriented x 3 with fluent speech, no focal motor/sensory deficits PEG site: red, moist under peg At the bedside under sterile conditions, a 16 [place] 2.5 cm low-profile kinsey PEG tube was replaced. 6 mL of saline was insufflated and tube easily rotated, easily inserted, without issues. Flushed well I would recommend not keeping sponges underneath the PEG tube site Keeping the PEG tube clean dry and intact Change prn I sincerely thank you for the referral and allowing me to be involved with the gastrointestinal health of your patient. Please do not hesitate to contact me with any questions, concerns, errors, or omissions. Sincerely, Ruben Ramos MD Division of Gastroenterology [facility] This chart was completed in part utilizing [employer] Speech Voice Recognition Software. Grammatical errors, random word insertions, prounoun errors, and incomplete sentences are an occasional consequence of this system due to software limitations, ambient noise, and hardware issues. Any formal questions or concerns about the content, text, or information contained within the body of this dictation should be directly addressed to the provider for clarification. documented in this encounter Plan of Treatment Upcoming Encounters Date Type Specialty Care Team Description 10/31/2023 Office Visit Gastroenterology Ruben Ramos MD [address] [place] [address] Health Maintenance Due Date Last Done Comments [...] as of this encounter Visit Diagnoses Diagnosis PEG (percutaneous endoscopic gastrostomy) adjustment/replacement/removal (HCC)- Primary Attention to gastrostomy documented in this encounter Care Teams Seam Stayer Relationship Specialty Start Date End Date Von Stewart MD [address] [place] [address] PCP - General Internal Medicine 02/04/21 documented as of this encounter"
--- OUTSIDE RECORDS SUMMARY | 2023-08-07 01:15 | External Medical Summary | Summary of Care ---
Author Name Unknown Organization [facility] Address [address] [place] [address] Phone [phone] Care Team Providers Care Financial Systems Administrator Name Role Phone Von Stewart MD Primary Care Provi dung Reason for Visit * Reason Onset Date Comments Other 06/02/2023 Encounter Details Date Type Department Care Team Description 06/02/2023 Telephone Gastroenterology, [facility] [address] [place] [address] Shellie Hall, [address] [place] [address] Other Allergies Active Allergy Reactions Severity Noted Date Comments Neomycin-Polymyxin B Gu 07/01/2010 Aripiprazole 07/01/2010 Belladonna Alkaloids 07/01/2010 Clarithromycin 12/25/2002 Stomach upset Clarithromycin 07/01/2010 Glycopyrrolate Base 12/25/2002 Aggressive [place] 12/25/2002 Aggressive Macrolides And Ketolides 07/01/2010 Other - Drugs 07/01/2010 alkolide Risperidone 07/01/2010 Trazodone 12/08/2005 Swelling of face and hands, and aggressive documented as of this encounter (statuses as of 06/02/2023) Medications Medication Sig Dispensed Refills Start Date [...] tube). 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 CHRONIC RENAL FAILURE 01/06/2003 02/07/2006 documented as of this encounter (statuses as of 06/02/2023) Immunizations Name Administration Dates Next Due H1N1 [...] Miscellaneous Notes * Telephone Encounter - Jen Powers RN - 06/02/2023 1:44 PM EDT I received a fax from Rogelio Gonsales at [facility]. Sent to scanning. Ready facility needs orders for dressingsaround the PEG tube. I wanted to clarify further . I am not sure what the second recommendation wasas I can not read the writing. Also wanted to know if shed like Dr. Hall to order this. Do they usually come from a [facility]? If Dr. Hall is unwilling to order and wound care can't. Maybe PCP will order. I left a message for rogelio to call me back. Sent fax to scanning. documented in this encounter Plan of Treatment Upcoming Encounters Date Type Specialty Care Team Description 10/31/2023 Office Visit Gastroenterology Ruben Ramos MD [address] [place] [address] Health Maintenance Due Date Last Done Comments [...] filedocumented as of this encounter Care Teams Financial Systems Administrator Relationship Specialty Start Date End Date Von Stewart MD [address] [place] [address] [place] [address] PCP - General Internal Medicine 02/04/21 documented as of this encounter
--- OUTSIDE RECORDS SUMMARY | 2023-08-07 01:15 | External Medical Summary | Summary of Care ---
Author Name Unknown Organization [facility] Address [address] [place] [address] Phone [phone] Care Team Providers Care Drilling Field Professional Name Role Phone Von Stewart MD Primary Care Provi dung Reason for Visit * Reason Onset Date Comments Follow Up 05/22/2023 Encounter Details Date Type Department Care Team Description 05/22/2023 Telephone Gastroenterology, [facility] [address] [place] [address] Shellie Hall, [address] [place] [address] Follow Up Allergies Active Allergy Reactions Severity Noted Date Comments Neomycin-Polymyxin B Gu 07/01/2010 Aripiprazole 07/01/2010 Belladonna Alkaloids 07/01/2010 Clarithromycin 12/25/2002 Stomach upset Clarithromycin 07/01/2010 Glycopyrrolate Base 12/25/2002 Aggressive [place] 12/25/2002 Aggressive Macrolides And Ketolides 07/01/2010 Other - Drugs 07/01/2010 alkolide Risperidone 07/01/2010 Trazodone 12/08/2005 Swelling of face and hands, and aggressive documented as of this encounter (statuses as of 05/23/2023) Medications Medication Sig Dispensed Refills Start Date [...] tube). 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 CHRONIC RENAL FAILURE 01/06/2003 02/07/2006 documented as of this encounter (statuses as of 05/23/2023) Immunizations Name Administration Dates Next Due H1N1 [...] encounter Miscellaneous Notes * Telephone Encounter - Kristie Pacheco LPN - 05/22/2023 3:25 PM EDT Received a call from geo, patients personal development educator, she does not want his referrral to go through [facility] for his wound, she is asking that we send this to [facility] for wound care in [place], they do not want to take him to [place] for this appt. [facility] wound care center, phone number [phone] fax number provided when called wound care is : [phone] Faxed referral and last appt to them. With a note that says on the cover sheet, please contact personal development educator- geo to schedule. With phone number [phone] documented in this encounter Plan of Treatment Upcoming Encounters Date Type Specialty Care Team Description 10/31/2023 Office Visit Gastroenterology Ruben Ramos MD [address] [place] [address] Health Maintenance Due Date Last Done Comments [...] filedocumented as of this encounter Care Teams Drilling Field Professional Relationship Specialty Start Date End Date Von Stewart MD [address] [place] [address] PCP - General Internal Medicine 02/04/21 documented as of this encounter
--- OUTSIDE RECORDS SUMMARY | 2023-08-07 01:15 | External Medical Summary | Summary of Care ---
Author Name Unknown Organization [facility] Address [address] [place] [address] Phone [phone] Care Team Providers Care Licensed Embalmer Name Role Phone Von Stewart MD Primary Care Provi dung Reason for Referral * Evaluate & Treat - Unlimited Visits (Within 30 days (routine)) - Authorized Specialty Diagnoses / Procedures Referred By Sarita chávez Referred To Contact Wound Care Diagnoses PEG tube malfunction (HCC) PEG (percutaneous endoscopic gastrostomy) adjustment/replacement/remova l (HCC) Fungal skin infection Shellie Hall DO [address] [place] [address] Referral ID Status Reason Start Date Expiration Date Visits Requested Visits Authorized [id number] Authorized Specialty Services Required 05/19/[phone] Question Answer Referral Priority Within 30 days (routine) Comments Assess for: Other: PEG site irritation and skin breakdown. [facility] at [facility]. Needs instructions for on-going management Currently given anti fungal tx Reason for Visit * Reason Comments Follow Up Reports tube is red around it. Reports he coughs feedings leak out. Encounter Details Date Type Department Care Team Description 05/19/2023 Office Visit Gastroenterology, [facility] [address] [place] [address] Shellie Hall DO [address] [place] [address] Fungal skin infection*; PEG tube malfunction (HCC); PEG (percutaneous endoscopic gastrostomy) adjustment/replacement /removal (HCC) Allergies Active Allergy Reactions Severity Noted Date Comments Neomycin-Polymyxin B Gu 07/01/2010 Aripiprazole 07/01/2010 Belladonna Alkaloids 07/01/2010 Clarithromycin 12/25/2002 Stomach upset Clarithromycin 07/01/2010 Glycopyrrolate Base 12/25/2002 Aggressive [place] 12/25/2002 Aggressive Macrolides And Ketolides 07/01/2010 Other - Drugs 07/01/2010 alkolide Risperidone 07/01/2010 Trazodone 12/08/2005 Swelling of face and hands, and aggressive documented as of this encounter (statuses as of 05/19/2023) Medications Medication Sig Dispensed Refills Start Date [...] tube). Apply topeg tube 0 Active Nystatin 788158 UNIT/GM External Powder (Nystop) Apply topically to [...] as of this encounter (statuses as of 05/19/2023) Active Problems Problem Noted Date Anemia 01/13/2015 [...] as of this encounter (statuses as of 05/19/2023) Resolved Problems Problem Noted Date Resolved Date Other disorder of eating of nonorganic origin 01/07/2011 Generalized anxiety disorder 06/26/2007 Overview: Resolved per Duplicate Protocol #2. CHRONIC RENAL FAILURE 01/06/2003 02/07/2006 documented as of this encounter (statuses as of 05/19/2023) Immunizations Name Administration Dates Next Due H1N1 [...] Sign Reading Time Taken Comments Blood Pressure 110/62 05/19/2023 11:27 AM EDT Pulse 72 05/19/2023 11:27 AM EDT Temperature 36.6 C (97.8 F) 05/19/2023 11:27 AM E DT Respiratory Rate 16 05/19/2023 11:27 AM EDT Oxygen Saturation 96% 05/19/2023 11:27 AM EDT Inhaled Oxygen Concentration - - Weight 67.1 kg (148 lb) 05/19/2023 11:27 AM EDT Height - - Body Mass Index 24.63 03/03/2023 5:07 PM EDT documented in this encounter Progress Notes * Shellie Hall DO - 05/19/2023 11:48 AM EDT Patient presented with on-going "issues"with skin erythema and drainage around PEG site. [facility] Routine PEG change done 05/05. Staff with patient state it's always red/. No problems with feeds. Seems more irritated in the last 2+ weeks. Drainage of clear fluid from skin. Patient likes to touch and manipulate the tube so staff is diligent about keeping it covered and 2 shirts and abd binder. Was using creams in past. Stopped 05/05 when site noted to be draining serous fluid. Recommended keeping site dry as possible. Anti-fungal powder. Referral placed to [facility] care as staff at [facility] would benefit from further wound care educations and trouble shooting [facility]. * Jen Powers RN - 05/19/2023 11:36 AM EDT Pt here with caregiver carroll. Reports that PEG tube has been red and leaking serosanguinous fluid. No recent fevers. documented in this encounter Plan of Treatment Upcoming Encounters Date Type Specialty Care Team Description 10/31/2023 Office Visit Gastroenterology Ruben Ramos MD [address] [facility] [place] [address] Scheduled Referrals Name Type Priority Associated Diagnoses Orde r Schedule WOUND CARE REFERRAL OP Referral Within 30 days (routine) PEG tube malfunction (HCC) PEG (percutaneous endoscopic gastrostomy) adjustment/replacemen t/removal (HCC) Fungal skin infection Ordered: 05/19/2023 Health Maintenance Due Date Last Done Comments [...] skin infection- Primary Dermatophytosis of the body PEG tube malfunction (HCC) Mechanical complication of gastrostomy PEG (percutaneous endoscopic gastrostomy) adjustment/replacement/removal (HCC) Attention to gastrostomy documented in this encounter Care Teams Licensed Embalmer Relationship Specialty Start Date End Date Von Stewart MD [address] [place] [address] [place] [address] PCP - General Internal Medicine 02/04/21 documented as of this encounter
--- OUTSIDE RECORDS SUMMARY | 2023-08-07 01:15 | External Medical Summary | Summary of Care ---
Author Name Unknown Organization [facility] Address [address] [place] [address] Phone [phone] Care Team Providers Care Documentation Consultant Name Role Phone Von Stewart MD Primary Care Provi dung Encounter Details Date Type Department Care Team Description 05/18/2023 Telephone [facility]astroenterology, [facility] [address] [facility] [address] Ruben Ramos CRNP [address] [place], [id number] Allergies Active Allergy Reactions Severity Noted Date Comments Neomycin-Polymyxin B Gu 07/01/2010 Aripiprazole 07/01/2010 Belladonna Alkaloids 07/01/2010 Clarithromycin 12/25/2002 Stomach upset Clarithromycin 07/01/2010 Glycopyrrolate Base 12/25/2002 Aggressive [place] 12/25/2002 Aggressive Macrolides And Ketolides 07/01/2010 Other - Drugs 07/01/2010 alkolide Risperidone 07/01/2010 Trazodone 12/08/2005 Swelling of face and hands, and aggressive documented as of this encounter (statuses as of 05/27/2023) Medications Medication Sig Dispensed Refills Start Date [...] tube). Apply topeg tube 0 Active Nystatin 827401 UNIT/GM External Powder (Nystop) Apply topically to [...] as of this encounter (statuses as of 05/27/2023) Active Problems Problem Noted Date Anemia 01/13/2015 [...] as of this encounter (statuses as of 05/27/2023) Resolved Problems Problem Noted Date Resolved Date Other disorder of eating of nonorganic origin 01/07/2011 Generalized anxiety disorder 06/26/2007 Overview: Resolved per Duplicate Protocol #2. CHRONIC RENAL FAILURE 01/06/2003 02/07/2006 documented as of this encounter (statuses as of 05/27/2023) Immunizations Name Administration Dates Next Due H1N1 [...] Telephone Encounter - Jen Powers RN - 05/18/2023 3:25 PM EDT I called and spoke with this patients nurse Yahaira. She is requesting him to be seen in the office. Reports provider recently suggested if not improved may need to be seen in the office. Reports the PEG tube is still red around it and draining serosanguinous. Reports he has been taking Bactrim. Reports feedings are still going in well. Reports the patient does not have a fever. Reports they provide his PEG tubes for the changes. Reports they have an Extra and will have them bring it to the appointment Incase its needed. Scheduling reports they have an open slot tomorrow. Transferred to scheduling. Dr. Rachel BERTRAND * Telephone Encounter - KIKO Vick - 05/18/2023 2:36 PM EDT Looking for a nurse to call back at [phone] and ask for Hidie and he is in a skills group homegtube area is all red documented in this encounter Plan of Treatment Upcoming Encounters Date Type Specialty Care Team Description 10/31/2023 Office Visit Gastroenterology Ruben Ramos MD [address] [facility] [place] [address] Health Maintenance Due Date Last Done Comments [...] filedocumented as of this encounter Care Teams Documentation Consultant Relationship Specialty Start Date End Date Von Stewart MD [address] [place] [address] PCP - General Internal Medicine 02/04/21 documented as of this encounter
--- OUTSIDE RECORDS SUMMARY | 2023-08-07 01:16 | External Medical Summary | Summary of Care ---
Author Name Unknown Organization [facility] Address [address] [place] [address] Phone [phone] Care Team Providers Care Posting Specialist Name Role Phone Von Stewart MD Primary Care Provi dung Reason for Visit * Reason Onset Date Comments Appointment 02/15/2023 Encounter Details Date Type Department Care Team Description 02/15/2023 Telephone Gastroenterology, [facility] [address] [place] [id number] Yadiel Cerda MD [address] [place] [id number] Appointment Allergies Active Allergy Reactions Severity Noted Date Comments Neomycin-Polymyxin B Gu 07/01/2010 Aripiprazole 07/01/2010 Belladonna Alkaloids 07/01/2010 Clarithromycin 12/25/2002 Stomach upset Clarithromycin 07/01/2010 Glycopyrrolate Base 12/25/2002 Aggressive P[place]grass 12/25/2002 Aggressive Macrolides And Ketolides 07/01/2010 Other - Drugs 07/01/2010 alkolide Risperidone 07/01/2010 Trazodone 12/08/2005 Swelling of face and hands, and aggressive documented as of this encounter (statuses as of 02/15/2023) Medications Medication Sig Dispensed Refills Start Date End Date Status MIRALAX PO POWDIndications:Other constipation Dissolve one heaping tablespoon in 8 ounces of water or juice - one dose twice daily till bm then every 3 days if no bm 1 Bottle 2 05/18/2012 Active cloZAPine (CLOZARIL) 100 MG Tablet Take 0.5 Tabs by mouth daily. 50mg In the morning 0 Active cloZAPine (CLOZARIL) 100 MG Tablet Take 1 Tab by mouth daily. 100mg at bedtime and a 25 mg at night 0 Active Cyanocobalamin (VITAMIN B-12) 1000 MCG Tablet Administer 1 Tab into PEG tube daily. 0 Active Lactobacillus (PROBIOTIC ACIDOPHILUS) TABS Administer 1 Tab into PEG tube 2 times a day. 0 Active Multiple Vitamins-Minerals (CENTAMIN) LIQD Administer 15 mL into PEG tube daily. 0 Active chlorHEXIDINE (PERIDEX) 0.12 % solution Apply 1 mL to inside of cheek 2 times a day. Use toothette to swab teeth and gums two times per day 0 Active Cetirizine HCl 10 MG Oral Tablet (ZyrTEC Allergy) Take 10 mg by mouth daily. 0 Active Calmoseptine 0.44-20.6 % External Ointment (Menthol-Zinc Oxide) Apply topically to affected area as needed (peg tube). Apply topeg tube 0 Active Nystatin 606204 UNIT/GM External Powder (Nystop) Apply topically to [...] Active Loperamide HCl 2 MG Oral Capsule (Imodium A-D) Take 2 mg by mouth 4 times a day as [...] Furosemide 10 MG/ML Oral Solution (Lasix) Take 40 mg by mouth daily. As needed 0 Active Boost Breeze Oral Liquid Take by mouth. 0 Active Clotrimazole-Betameth asone 1-0.05 % External Cream Apply topically to affected area 2 times a day. Apply to as ordered 0 Active Bisacodyl 10 MG Rectal Suppository (Dulcolax) 0 04/15/2022 Active Fluocinonide Emulsified Base 0.05 % External Cream 0 05/18/2022 Active predniSONE 5 MG/5ML Oral Solution 0 04/28/2022 Active documented as of this encounter (statuses as of 02/15/2023) Active Problems Problem Noted Date Anemia 01/13/2015 [...] as of this encounter (statuses as of 02/15/2023) Resolved Problems Problem Noted Date Resolved Date Other disorder of eating of nonorganic origin 01/07/2011 Generalized anxiety disorder 06/26/2007 Overview: Resolved per Duplicate Protocol #2. CHRONIC RENAL FAILURE 01/06/2003 02/07/2006 documented as of this encounter (statuses as of 02/15/2023) Immunizations Name Administration Dates Next Due H1N1 [...] encounter Miscellaneous Notes * Telephone Encounter - Emi Wan - 02/15/2023 2:03 PM EDT Spoke with patient's mom yesterday (02/14/23) about getting his appointment with Za[facility] rescheduled on 03/13/23. I sent a staff message to Yasmeen because patient is due to have his kinsey-stark changed.. Yasmeen said that if he wants something sooner that he can be scheduled with any provider. LMOM 02/15/23 documented in this encounter Plan of Treatment Health Maintenance Due Date Last Done Comments COVID-19 Vaccine (#1) 1955 Depression Screening, Annual for Pts 12 and Over 1967 Hepatitis C Screening 1973 Cologuard 2000 Fecal Occult Blood Test 2000 Sigmoidoscopy 2000 Zoster Vaccines (1 of 2) 2005 Pneumococcal Vaccine: 65+ Years (2 - PCV) 10/04/2007 10/04/2006 Lipid Panel 12/28/2016 12/29/2011, 07/12, 02/11/2011, Additional history exists Diabetes Screening 01/13/2018 01/13/2015, 0 06/10/2013, 10/27/2012, Additional history exists Colonoscopy 05/26/2020 05/26/2010, 06/12/2007 Colorectal Cancer Screening 05/26/2020 DTaP,Tdap,and Td Vaccines (2 - Td or Tdap) 02/11/2021 02/11/2011, 03/15/2001 Influenza Vaccine (FLU shot) (Season Ended) 2023 07/12/2011, 06/07/2010, 07/20/2009, Additional history exists Hepatitis B Completed 08/31/1983, 02/10, 02/10/1983 GARDASIL-HPV IMMUNIZATION SERIES Aged Out No longer eligible based on patient's age to complete this topic MENINGOCOCCAL (MENACTRA/MENVEO) Aged Out No longer eligible based on patient's age to complete this topic documented as of this encounter Medical Devices Not on filedocumented as of this encounter Care Teams Posting Specialist Relationship Specialty Start Date End Date Von Stewart MD [address] [place] [address] [place] [phone] PCP - General Internal Medicine 02/04/21 documented as of this encounter
[2023-08-07] MEDS ORDERED: FUROSEMIDE 40 MG/4 ML VIAL IV ONE (02:05)
[2023-08-07 02:08] LABS: Albumin Globulin Ratio 0.8 (0.9-2); BUN Creatinine Ratio 35.7 (10-20); Bilirubin,Total 0.7 mg/dl (0.2-1.0); Calcium 10.4 mg/dl (8.6-10.3); Creatinine Clr Calc Pharmacy 58.2 ml/min; Est GFR (African American) 77.8 ml/min; Est GFR (Non-African American) 67.1 ml/min; Globulin 3.7 gm/dl (2.5-4.0); Potassium 3.3 mmol/L (3.5-5.1); Total Protein 6.7 gm/dl (6.0-8.3)
[2023-08-07 02:14] LABS: Troponin I High Sensitivity 11.2 pg/ml (0-20)
[2023-08-07 02:16] LABS: Hematocrit (blood only) 36.3 % (42.0-52.0); Hemoglobin 12.5 g/dl (14.0-18.0); Mean Corpuscular Hemoglobin 33.4 pg (25.0-34.0); Mean Corpuscular Hgb Conc 34.4 g/dL (32.0-36.0); Mean Corpuscular Volume 97.1 fL (80.0-100.0); Mean Platelet Volume 13.4 fL (9.4-12.4); Nucleated RBC # (auto) 0.03 K/uL (0.00-0.12); Nucleated RBC % (auto) 1.2 %; Platelet Count 77 K/uL (130-400); RDW Coefficient of Variation 13.4 % (11.5-14.5); RDW Standard Deviation 48.2 fL (36.4-46.3); Red Blood Count 3.74 M/uL (4.70-6.10); White Blood Count 2.56 K/ul (4.8-10.8)
[2023-08-07 02:24] LABS: INR 1.2 (0.9-1.1); Partial Thromboplastin Ratio 1.2; Partial Thromboplastin Time 35.1 Seconds (21.0-31.0)
[2023-08-07 02:33] LABS: Basophils # (auto) 0.04 K/uL (0.00-0.20); Basophils % (auto) 1.6 %; Immature Granulocytes # (auto) 0.06 K/uL (0.01-0.20); Immature Granulocytes % (auto) 2.3 %; Lymphocytes % (auto) 11.7 %; Monocytes # (auto) 0.24 K/uL (0.11-0.59); Monocytes % (auto) 9.4 %; Neutrophils # (auto) 1.92 K/uL (1.40-6.50)
--- NOTE | 2023-08-07 03:16 | History & Physical Report ---
Date of Service August 07, 2023 Assessment & Plan (1) Hypoxia: Plan: 68 year old male admitted for hypoxia found at alf. -History of dysphagia and esophageal dyskinesia. Currently has PEG tube which he receives medications/feeds/liquids from. -WBC 2.56 however has history of myelodysplastic syndrome. -CXR with bilateral lower lung field opacities possibly representing effusion vs pneumonia. -Given 40mg IV Lasix in the ER. -May be fluid overload vs aspiration pneumonia causing hypoxia. -Received 2gm Cefepime and Vancomycin x1 in the ER. -Will treat as aspiration pneumonia, continue cefepime and vancomycin, add metronidazole IV for anaerobic coverage. Blood cultures pending. -Ordered MRSA nasal swab, if negative can D/C vancomycin. -Na low at 130, lives in alf setting, will obtain urine Legionairre's for atypical pneumonia. -Patient otherwise stable with vitals. -Continue treatment with antibiotics or diuresis with goal to wean off O2. -AM CBC, procal. -Monitor on telemetry. (2) Gout: Plan: -Continue home allopurinol through PEG tube. (3) Myelodysplasia (myelodysplastic syndrome): Plan: -Hx of myelodysplastic syndrome, chronic. Had been followed by hematology in the past, at baseline hemoglobin. WBC count mildly reduced. Platelet count mildly reduced from baseline 100. (4) Microcephaly: Plan: -Chronic, noted. Plan F/E/N/GI: Everything through PEG tube. Consulted nutrition for nutritional support, appreciate recommendations. DVT Prophylaxis: Lovenox 40mg q24h. Code status: Full Dispo: telemetry. History of Present Illness Chief Complaint: Hypoxia Primary Care Provider: Chema Hernandez MD Marty is a 68 year old male w/ PmHx microcephaly, significant dysphagia requiring feedings/hydration/meds through peg tube, gout, myelodysplasia, seizure disorder coming in to the hospital for hypoxia found at his alf. Patient is accompanied by one of the workers at his alf, [place], who had been caring for him tonight. She states that around 10 past 12AM she had helped him to go to the bathroom. At the time he was lethargic and looking diaphoretic, he was also not able to stand up on his own or get around very easily. Pulse oximetry on the patient revealed a pulse ox level of 80% and a heart rate of 80. He also had a pulse ox saturation of 85% earlier in the day too. He has been more lethargic over the past few days per other caretakers. He has also had a cough over the past month or so. In the ER WBC 2.56, Na 130, K 3.3, Albumin 3.0. CXR with patchy opacities in the bilateral lung bases. He was given 40mg IV Lasix in the ER. Allergies Allergy/AdvReac Type Severity Reaction Status Date / Time glycopyrrolate Allergy Severe TONGUE Verified 05/22/23 13:40 SWELLING trazodone Allergy Severe SWELLING Verified 05/22/23 13:40 OF TONGUE & EXTREMITIES, DIFFICULTY BREATHING. lithium Allergy Intermediate EXCESSIVE Verified 05/22/23 13:40 DRINKING, DECREASED APPETITE & VERBALIZATIONS risperidone Allergy Intermediate POSSIBLE Verified 05/22/23 13:40 NEUROLEPTIC MALIGNANCY SYNDROME amoxicillin [From Augmentin] Allergy Mild Rash Verified 05/22/23 13:40 clavulanic acid Allergy Mild Rash Verified 05/22/23 13:40 [From Augmentin] Macrolide Antibiotics Allergy Mild RASH Verified 05/22/23 13:40 belladonna alkaloids Allergy Unknown Unknown Verified 05/22/23 13:40 clarithromycin Allergy Unknown Unknown Verified 05/22/23 13:40 metoclopramide Allergy Unknown PT TAKES Verified 05/22/23 13:40 AT HOME aripiprazole AdvReac Intermediate HYPERACTIVITY Verified 05/22/23 13:40 & INSOMNIA Home Medications Medication Instructions Recorded Confirmed Type acetaminophen 160 mg/5 mL (5 mL) 20 ml feeding tube Q4 PRN 10/09/18 08/07/23 History oral suspension fever/headache/minor aches herberth aluminum-mag hydroxide-simethicone 30 ml feeding tube BID PRN upset 10/09/18 08/07/23 History 200 mg-200 mg-20 mg/5 mL oral susp stomach/vomiting (Antacid Liquid) chlorhexidine gluconate 0.12 % 15 ml buccal BID 10/09/18 08/07/23 History mouthwash (Peridex) dextromethorphan-guaifenesin 5 5 ml feeding tube Q6H PRN 10/09/18 08/07/23 History mg-100 mg/5 mL oral liquid cough/congestion (Robitussin Cough-Chest Congestion DM) neomycin-bacitracn Zn-polymyx 3.5 1 applic topical BID PRN cuts and 10/09/18 08/07/23 History mg-400 unit-5,000 unit/gram top scrapes oint (Neosporin (tgk-kdo-vodle)) zinc oxide 13 % topical cream 1 applic topical Q4 PRN Skin 10/09/18 08/07/23 History (Desitin Rapid Relief) Irritation lip protective (padimate o) 1 ea topical UD 08/13/19 08/07/23 History ostomy supplies (Adapt Stoma #28.3 grams 11/12/19 08/07/23 Rx Powder topical) piobbqyl-ziwlvxxm-zhyt 8 mg-folic 1 tab PO DAILY #30 tabs 06/22/20 08/07/23 Rx ac 400 mcg-vit K 10 mcg chew tablet (Centrum Chewables) nebulizer accessories #1 ea 07/30/20 08/07/23 Rx clotrimazole-betamethasone 1 1 applic topical .COMPLEX PRN rash 08/13/20 08/07/23 Rx %-0.05 % topical cream 2 weeks #45 grams menthol 0.44 %-zinc oxide 20.6 % 1 applic topical QID skin 09/02/20 08/07/23 Rx topical ointment (Calmoseptine) irritation #113 grams clotrimazole 1 % topical cream See Rx Instructions topical 04/28/21 08/07/23 Rx .COMPLEX PRN Rash #45 grams sheep skin heel protectors #1 ea 11/11/21 08/07/23 Rx diaper,brief,adult,disposable #240 ea 01/11/22 08/07/23 Rx loperamide 1 mg/7.5 mL oral liquid See Rx Instructions feeding tube 03/23/22 08/07/23 Rx (Imodium A-D) DIRECTED PRN Diarrhea #450 mL fluocinonide-emollient 0.05 % 1 applic topical BID #60 grams 05/18/22 08/07/23 Rx topical cream food supplemt, lactose-reduced See Rx Instructions .Route 09/16/22 08/07/23 Rx .COMPLEX #237 mL clozapine 25 mg tablet (Clozaril) 125 mg feeding tube HS 10/27/22 08/07/23 History clozapine 50 mg tablet 50 mg feeding tube QAM 10/27/22 08/07/23 History furosemide 10 mg/mL oral solution 10 mg feeding tube UD #60 mL 10/27/22 08/07/23 Rx Lactobacillus acidophilus 175 mg feeding tube BID #30 caps 11/01/22 08/07/23 Rx (Acidophilus capsule) cyanocobalamin (vitamin B-12) 1,000 mcg feeding tube DAILY #90 11/01/22 08/07/23 Rx 1,000 mcg tablet (Vitamin B-12) tabs pediatric multivitamin no.136 1 tab PO DAILY #90 tabs 11/08/22 08/07/23 Rx (Children Multivitamin chewable tablet) food supplemt, lactose-reduced 1 ea PO DAILY 11/16/22 08/07/23 History 0.04 gram-1 kcal/mL oral liquid (Boost) bisacodyl 10 mg rectal suppository 10 mg OR ONCE PRN constipation #12 12/01/22 08/07/23 Rx ea nystatin 100,000 unit/gram topical 1 applic topical BID PRN skin 01/04/23 08/07/23 Rx powder irritation #30 grams levalbuterol HCl 1.25 mg/3 mL 1.25 mg (3 mL) inhalation Q4H PRN 01/09/23 08/07/23 Rx solution for nebulization shortness of breath or wheezing or cough #75 mL diaper,brief,adult,disposable #216 ea 01/11/23 08/07/23 Rx (Wings Choice Plus Adult Briefs) prednisone 5 mg/mL oral concentrate 5 mg PO .COMPLEX #30 mL 02/08/23 08/07/23 Rx ibuprofen 100 mg/5 mL oral 600 mg (30 mL) feeding tube Q8H 14 02/23/23 08/07/23 Rx suspension (Children's Ibuprofen) days #1,260 mL docusate sodium 50 mg/5 mL oral 100 mg (10 mL) feeding tube DAILY 02/28/23 08/07/23 Rx liquid #1,000 mL allopurinol 100 mg tablet See Rx Instructions feeding tube 03/24/23 08/07/23 Rx .COMPLEX #60 tabs cetirizine 10 mg tablet 10 mg feeding tube DAILY #30 tabs 03/28/23 08/07/23 Rx polyethylene glycol 3350 17 See Rx Instructions PO .COMPLEX 04/04/23 08/07/23 Rx gram/dose oral powder (Miralax) constipation #510 grams fluticasone propionate 50 2 spray intranasal DAILY #16 grams 04/24/23 08/07/23 Rx mcg/actuation nasal spray,suspension ipratropium bromide 21 mcg (0.03 2 spray intranasal TID PRN 04/24/23 08/07/23 Rx %) nasal spray postnasal drip #30 mL Past Med/Surg History Medical History Chronic rhinitis Seizure disorder (03/27/12) Esophageal dyskinesia Intellectual disability Uses feeding tube Surgical History History of craniotomy History of colonoscopy History of hernia repair History of esophagogastroduodenoscopy (EGD) History of cholecystectomy Family History Sister Microcephaly Intellectual disability Myelodysplasia (myelodysplastic syndrome) Father Cancer Myocardial infarction Other Family history non-contributory Denies family history of Ovarian cancer Prostate cancer Breast cancer Colorectal cancer Social History Smoking Status: Never smoker Second Hand Exposure: No; Do You Dip or Chew Tobacco: No; Hx Alcohol Use: No Hx Substance Use: No Preferred Language: Arabic Communication Ability: Unable Visual Impairment: No Limitations Hearing Ability: Normal 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 Physical Exam Constitutional: WD/WN, vitals as above Eyes: PERRL, conjunctivae normal, anicteric sclerae Respiratory: Mildly coarse breath sounds end inspiration and end expiration throughout bilateral middle and lower lung espinoza. Cardiovascular: RRR, no murmur, no edema Gastrointestinal (Abdomen): normal bowel sounds, soft, nontender, no hepatosplenomegaly Skin: no rashes, warm and dry Results & Data Results & Data Vital Signs (Past 12 Hours) Vital Signs Temp Pulse Pulse Resp BP BP Pulse Ox 08/07/23 03:11 81 30 H 121/74 95 08/07/23 01:16 85 L 08/07/23 01:16 08/07/23 01:11 36.7 C 85 30 H 121/74 85 L O2 Del Method O2 Flow Rate 08/07/23 03:11 Oxymask 4 08/07/23 01:16 Room Air, Oxymask 0 08/07/23 01:16 Room Air 08/07/23 01:11 Room Air Supervising Physician Co-Signing Physician Notes Attending addendum: I have physically seen this patient, have supervised the medical residents activities, and agree with the H&P unless as otherwise noted. Assessment and Plan: Acute respiratory failure with hypoxia- Broad-spectrum IV antibiotics to cover potential exposures at alf Concerns regarding possible aspiration pneumonia and fluid overload The patient will be admitted to telemetry for serial cardiac enzymes, serial EKG's, cardiac rhythm monitoring and a 2-D echocardiogram with Dopplers. Aspiration pneumonia- Check MRSA swab Vancomycin IV x 1 until swab results return Cefepime 2 g IV every 12 hours Duonebs every 4 hours while awake and every 2 hours when necessary. Aspiration precautions History of dysphagia and esophageal dyskinesia, requiring use of PEG tube for medications, feeds and liquids Fluid overload- Given furosemide 40 mg IV x 1 in ED, and will follow for response Further recommendations after results of echocardiogram Myelodysplastic syndrome- Counts look acceptable on admission Follow-up for any stress response Resident Activity Tracking Resident Involvement: Resident Care Provided Care Provided: Adult Hospital Medicine
[2023-08-07 04:22] LABS: Adenovirus PCR Not Detected (NotDetected); Bordetella parapertussis PCR Not Detected (NotDetected); Bordetella pertussis PCR Not Detected (NotDetected); Chlamydia pneumoniae PCR Not Detected (NotDetected); Coronavirus 229E PCR Not Detected (NotDetected); Coronavirus CoV-2 (COVID19)PCR Not Detected (NotDetected); Coronavirus HKU1 PCR Not Detected (NotDetected); Coronavirus NL63 PCR Not Detected (NotDetected); Coronavirus OC43PCR Not Detected (NotDetected); Human Metapneumovirus PCR Not Detected (NotDetected); Influenza A PCR Not Detected (NotDetected); Influenza B PCR Not Detected (NotDetected); Mycoplasma pneumoniae PCR Not Detected (NotDetected); Parainfluenza Virus 1 PCR Not Detected (NotDetected); Parainfluenza Virus 2 PCR Not Detected (NotDetected); Parainfluenza Virus 3 PCR Not Detected (NotDetected); Parainfluenza Virus 4 PCR Not Detected (NotDetected); Respiratory Syncytial VirusPCR Not Detected (NotDetected); Rhinovirus/Enterovirus PCR Not Detected (NotDetected)
[2023-08-07] MEDS ORDERED: VANCOMYCIN HCL 1,000 MG in SODIUM CHLORIDE 0.9% 250 ML IV STA (04:33)
[2023-08-07] MEDS ORDERED: CEFEPIME 2,000 MG/20 ML VIAL IV STA (04:33)
[2023-08-07] MEDS ORDERED: VANCOMYCIN CONSULT ACTIVE PRN (04:33)
[2023-08-07] MEDS ORDERED: ACETAMINOPHEN 1,000 MG/100 ML VIAL IV PRN (05:05)
[2023-08-07] MEDS ORDERED: bisacodyL 10 MG SUPP PR PRN (05:05)
[2023-08-07] MEDS ORDERED: LEVALBUTEROL 1.25 MG/3 ML NEB INH PRN (05:05)
[2023-08-07] MEDS ORDERED: ALUMINUM/MAGNESIUM/SIMETH (MAALOX MAX) 30 ML UDC PEG PRN (05:13)
[2023-08-07] MEDS ORDERED: SODIUM CHLORIDE 0.9% 500 ML IV ONE (05:39)
[2023-08-07] MEDS ORDERED: cefTRIAXone SODIUM 1,000 MG in DEXTROSE 5 % MINI-B 50 ML IV SCH (06:00)
[2023-08-07] MEDS: metroNIDAZOLE 500 MG/100 ML BAG IV SCH ×3 (06:30→22:03)
--- NOTE | 2023-08-07 07:26 | XRay Report ---
XR chest 1V not portable HISTORY: 68 years-old Male Chest pain, nonspecific acute chest pain COMPARISON: 12/13/2022 TECHNIQUE: AP view of the chest cardiac silhouette is enlarged. Pulmonary vascular congestion with in terstitial coarsening. FINDINGS: Bibasilar and midlung consolidative opacities. No pneumothorax. Probable trace pleural effusions. Deg enerative changes of the shoulders and spine. IMPRESSION: 1. Cardiomegaly with pulmonary edema. 2. Bibasilar predominant consolidation may represent atelectasis versus pneumonitis. ACT 112: Negative or not required by law. The above report was generated using voice recognition software. It may contain grammatical, syntax o r spelling errors. Electronically signed by: Devin Mena M.D. 08/07/2023 7:24 AM
--- NOTE | 2023-08-07 07:52 | Emergency Department Note ---
Impression & Plan Congestive heart failure, Microcephaly, Intellectual disability, Myelodysplasia (myelodysplastic syndrome), Bilateral pulmonary infiltrates ED Provider Note CHIEF COMPLAINT: Shortness of breath HISTORY OF PRESENT ILLNESS: This 68-year-old male patient with past medical history of myelodysplastic disorder, bipolar disorder, intellectual disability, microcephaly, esophageal dyskinesia, seizure disorder, chronic bilateral lower extremity edema presents to the emergency department with complaints of hypoxia. The patient does have 24-hour caregivers who noticed a change in his behavior today. Current caregiver took his temperature and vital signs at change of their shift. She noted the patient had a normal temperature but was hypoxic. He did not seem to be as alert as usual but there were no clear signs of respiratory difficulty. Patient is nonverbal at baseline. REVIEW OF SYSTEMS: A review of systems was performed with positives and pertinent negatives listed in the history of present illness. 10 systems were reviewed and are otherwise negative. ALLERGIES: see below MEDICATIONS: see below PMH: see below SOCIAL HISTORY: see below DDx: Congestive heart failure, pneumonia, viral etiology such as COVID, PE, ACS among others PHYSICAL EXAM: Vital signs reviewed. General: Chronically ill-appearing 68-year-old male in no significant distress, on oxy mask HEENT: No scleral icterus, PERRLA, neck supple. Severe microcephaly Cardiovascular: Regular rate and rhythm, no extra sounds. Pulmonary: Crackles to the bases to auscultation bilaterally, normal work of breathing on oxy mask. Abdomen: Soft, nontender, nondistended, positive bowel sounds. Musculoskeletal: Atraumatic, no peripheral edema. Neurologic: Patient awake alert and interactive, nonverbal at baseline. Follows commands Skin: Warm, dry, no rash EMERGENCY DEPARTMENT COURSE/MDM: This patient was evaluated and appeared to be in no significant distress. Patient's oxygenation was well-managed with minimal supplementation via oxime mask. Chest x-ray was performed and revealed pulmonary vascular congestion, thus 40 mg of IV Lasix was ordered. Laboratory work reveals a leukopenia, thrombocytopenia and hyponatremia. Viral respiratory panel was ordered and is negative. After consultation with the hospitalist service, blood cultures, lactate were ordered. Patient was started on IV cefepime and vancomycin. I do think the patient's picture is mixed, may represent congestive heart failure with underlying infiltrate. Nonetheless the patient's lactate did return at 2.8 and he was then hydrated with 500 mL of normal saline solution. I do not think the patient warrants 30 mL/kg given his congestive change on chest x-ray, in fact I think this would be detrimental. Patient will be admitted to the medicine service for further management. MONITORING: An order for cardiac monitoring was placed and the patient is noted to be in a normal sinus rhythm at 81 beats per minute. RADIOLOGY: Chest x-ray to my interpretation reveals pulmonary vascular congestion, possible lower lobe infiltrates bilaterally EKG: To my interpretation reveals a sinus rhythm with first-degree AV block. Left axis deviation. LVH. QTc of 450. No PVC, no PAC. Normal ST segments. DISPOSITION: Admission Past Med/Surg History Medical History Chronic rhinitis Seizure disorder (03/27/12) Esophageal dyskinesia Intellectual disability Uses feeding tube Surgical History History of craniotomy History of colonoscopy History of hernia repair History of esophagogastroduodenoscopy (EGD) History of cholecystectomy Family History Sister Microcephaly Intellectual disability Myelodysplasia (myelodysplastic syndrome) Father Cancer Myocardial infarction Other Family history non-contributory Denies family history of Ovarian cancer Prostate cancer Breast cancer Colorectal cancer Social History Smoking Status: Never smoker Second Hand Exposure: No; Do You Dip or Chew Tobacco: No; Hx Alcohol Use: No Hx Substance Use: No Preferred Language: Pashto Communication Ability: Unable Visual Impairment: No Limitations Hearing Ability: Normal Insulation Machine Operator Required: No Beliefs That Will Affect Care: None marital status: Single Current Living Situation: Boarding Home Current Living Situation Comment: Lives at home with caregivers current occupational status: disabled Feels Safe at Home: Yes Safety Concerns: Feels Safe At This Time Childhood Exposure to Second-Hand Smoke: No Dental Care, Regularly: Yes Physical Activity Frequency: 1-2 Times per Week Seatbelt Use: always Sunscreen Use: No Allergies Allergies Allergy/AdvReac Type Severity Reaction Status Date / Time glycopyrrolate Allergy Severe TONGUE Verified 05/22/23 13:40 SWELLING trazodone Allergy Severe SWELLING Verified 05/22/23 13:40 OF TONGUE & EXTREMITIES, DIFFICULTY BREATHING. lithium Allergy Intermediate EXCESSIVE Verified 05/22/23 13:40 DRINKING, DECREASED APPETITE & VERBALIZATIONS risperidone Allergy Intermediate POSSIBLE Verified 05/22/23 13:40 NEUROLEPTIC MALIGNANCY SYNDROME amoxicillin [From Augmentin] Allergy Mild Rash Verified 05/22/23 13:40 clavulanic acid Allergy Mild Rash Verified 05/22/23 13:40 [From Augmentin] Macrolide Antibiotics Allergy Mild RASH Verified 05/22/23 13:40 belladonna alkaloids Allergy Unknown Unknown Verified 05/22/23 13:40 clarithromycin Allergy Unknown Unknown Verified 05/22/23 13:40 metoclopramide Allergy Unknown PT TAKES Verified 05/22/23 13:40 AT HOME aripiprazole AdvReac Intermediate HYPERACTIVITY Verified 05/22/23 13:40 & INSOMNIA Home Meds Home Medications Medication Instructions Recorded Confirmed acetaminophen 160 mg/5 mL (5 mL) 20 ml feeding tube Q4 PRN 10/09/18 08/07/23 oral suspension fever/headache/minor aches herberth aluminum-mag hydroxide-simethicone 30 ml feeding tube BID PRN upset 10/09/18 08/07/23 200 mg-200 mg-20 mg/5 mL oral susp stomach/vomiting (Antacid Liquid) chlorhexidine gluconate 0.12 % 15 ml buccal BID 10/09/18 08/07/23 mouthwash (Peridex) dextromethorphan-guaifenesin 5 5 ml feeding tube Q6H PRN 10/09/18 08/07/23 mg-100 mg/5 mL oral liquid cough/congestion (Robitussin Cough-Chest Congestion DM) neomycin-bacitracn Zn-polymyx 3.5 1 applic topical BID PRN cuts and 10/09/18 08/07/23 mg-400 unit-5,000 unit/gram top scrapes oint (Neosporin (nmm-stk-xhwzq)) zinc oxide 13 % topical cream 1 applic topical Q4 PRN Skin 10/09/18 08/07/23 (Desitin Rapid Relief) Irritation lip protective (padimate o) 1 ea topical UD 08/13/19 08/07/23 clozapine 25 mg tablet (Clozaril) 125 mg feeding tube HS 10/27/22 08/07/23 clozapine 50 mg tablet 50 mg feeding tube QAM 10/27/22 08/07/23 food supplemt, lactose-reduced 1 ea PO DAILY 11/16/22 08/07/23 0.04 gram-1 kcal/mL oral liquid (Boost) Previous Rx's Medication Instructions Recorded ostomy supplies (Adapt Stoma #28.3 grams 11/12/19 Powder topical) iizhjxor-yzdlkati-srdj 8 mg-folic 1 tab PO DAILY #30 tabs 06/22/20 ac 400 mcg-vit K 10 mcg chew tablet (Centrum Chewables) nebulizer accessories #1 ea 07/30/20 clotrimazole-betamethasone 1 1 applic topical .COMPLEX PRN rash 08/13/20 %-0.05 % topical cream 2 weeks #45 grams menthol 0.44 %-zinc oxide 20.6 % 1 applic topical QID skin 09/02/20 topical ointment (Calmoseptine) irritation #113 grams clotrimazole 1 % topical cream See Rx Instructions topical 04/28/21 .COMPLEX PRN Rash #45 grams sheep skin heel protectors #1 ea 11/11/21 diaper,brief,adult,disposable #240 ea 01/11/22 loperamide 1 mg/7.5 mL oral liquid See Rx Instructions feeding tube 03/23/22 (Imodium A-D) DIRECTED PRN Diarrhea #450 mL fluocinonide-emollient 0.05 % 1 applic topical BID #60 grams 05/18/22 topical cream food supplemt, lactose-reduced See Rx Instructions .Route 09/16/22 .COMPLEX #237 mL furosemide 10 mg/mL oral solution 10 mg feeding tube UD #60 mL 10/27/22 Lactobacillus acidophilus 175 mg feeding tube BID #30 caps 11/01/22 (Acidophilus capsule) cyanocobalamin (vitamin B-12) 1,000 mcg feeding tube DAILY #90 11/01/22 1,000 mcg tablet (Vitamin B-12) tabs pediatric multivitamin no.136 1 tab PO DAILY #90 tabs 11/08/22 (Children Multivitamin chewable tablet) bisacodyl 10 mg rectal suppository 10 mg [place] ONCE PRN constipation #12 12/01/22 ea nystatin 100,000 unit/gram topical 1 applic topical BID PRN skin 01/04/23 powder irritation #30 grams levalbuterol HCl 1.25 mg/3 mL 1.25 mg (3 mL) inhalation Q4H PRN 01/09/23 solution for nebulization shortness of breath or wheezing or cough #75 mL diaper,brief,adult,disposable #216 ea 01/11/23 (Wings Choice Plus Adult Briefs) prednisone 5 mg/mL oral concentrate 5 mg PO .COMPLEX #30 mL 02/08/23 ibuprofen 100 mg/5 mL oral 600 mg (30 mL) feeding tube Q8H 14 02/23/23 suspension (Children's Ibuprofen) days #1,260 mL docusate sodium 50 mg/5 mL oral 100 mg (10 mL) feeding tube DAILY 02/28/23 liquid #1,000 mL allopurinol 100 mg tablet See Rx Instructions feeding tube 03/24/23 .COMPLEX #60 tabs cetirizine 10 mg tablet 10 mg feeding tube DAILY #30 tabs 03/28/23 polyethylene glycol 3350 17 See Rx Instructions PO .COMPLEX 04/04/23 gram/dose oral powder (Miralax) constipation #510 grams fluticasone propionate 50 2 spray intranasal DAILY #16 grams 04/24/23 mcg/actuation nasal spray,suspension ipratropium bromide 21 mcg (0.03 2 spray intranasal TID PRN 04/24/23 %) nasal spray postnasal drip #30 mL Results & Data (ED) Vital Signs Vital Signs - 24 hr 08/07/23 01:10 08/07/23 01:11 08/07/23 01:16 Temperature 36.7 C Temperature Source Temporal Artery Scan Pulse Rate 87 85 Pulse Rate [Radial] Respiratory Rate 30 H Respiratory Effort / Characteristics Non-Labored Spontaneous Non-Labored Spontaneous Respiratory Depth Normal Normal Respiratory Pattern Regular Regular Blood Pressure 121/74 Blood Pressure [Right Arm] Blood Pressure Mean 89 Blood Pressure Mean [Right Arm] Pulse Oximetry 85 L Oxygen Delivery Method Room Air Room Air Oxygen Flow Rate Sepsis Recent Fever Within 48 Hours No Sepsis New/Unexplained Change in Mental Status No Sepsis Action Taken by Nursing No Action Required Oxygen Flow Rate - Titration Pulse Oximetry Post Tiitration 08/07/23 01:16 08/07/23 03:11 Temperature Temperature Source Pulse Rate Pulse Rate [Radial] 81 Respiratory Rate 30 H Respiratory Effort / Characteristics Non-Labored Spontaneous Respiratory Depth Normal Respiratory Pattern Regular Blood Pressure Blood Pressure [Right Arm] 121/74 Blood Pressure Mean Blood Pressure Mean [Right Arm] 89 Pulse Oximetry 85 L 95 Oxygen Delivery Method Room Air Oxymask Oxymask Oxygen Flow Rate 0 4 Sepsis Recent Fever Within 48 Hours Sepsis New/Unexplained Change in Mental Status Sepsis Action Taken by Nursing Oxygen Flow Rate - Titration 5 Pulse Oximetry Post Tiitration 90 Home Medications Current Medication List: was personally reviewed by me Laboratory Data Attestation: I reviewed the patient's lab results. 08/07/23 01:24 08/07/23 01:24 Lab Results 08/07/23 08/07/23 Range/Units 01:24 03:03 WBC 2.56 L (4.8-10.8) K/ul RBC 3.74 L (4.70-6.10) M/uL Hgb 12.5 L (14.0-18.0) g/dl Hct 36.3 L (42.0-52.0) % MCV 97.1 (80.0-100.0) fL MCH 33.4 (25.0-34.0) pg MCHC 34.4 (32.0-36.0) g/dL RDW Std Deviation 48.2 H (36.4-46.3) fL RDW Coeff of Isaac 13.4 (11.5-14.5) % Plt Count 77 L (130-400) K/uL MPV 13.4 H (9.4-12.4) fL Immature Gran % (Auto) 2.3 % Neut % (Auto) 75.0 % Lymph % (Auto) 11.7 % Dolores % (Auto) 9.4 % Eos % (Auto) 0.0 % Baso % (Auto) 1.6 % Neut # (Auto) 1.92 (1.40-6.50) K/uL Lymph # (Auto) 0.30 L (1.20-3.40) K/uL Dolores # (Auto) 0.24 (0.11-0.59) K/uL Eos # (Auto) 0.00 (0.00-0.50) K/uL Baso # (Auto) 0.04 (0.00-0.20) K/uL Immature Gran # (Auto) 0.06 (0.01-0.20) K/uL Absolute Nucleated RBC 0.03 (0.00-0.12) K/uL Nucleated RBC % (auto) 1.2 % PT 13.0 H (9.0-12.0) Seconds INR 1.2 H (0.9-1.1) APTT 35.1 H (21.0-31.0) Seconds PTT Ratio 1.2 Sodium 130 L (136-145) mmol/L Potassium 3.3 L (3.5-5.1) mmol/L Chloride 96 L (98-107) mmol/L Carbon Dioxide 26 (21-32) mmol/L Anion Gap 8 (3-11) BUN 40 H (6-23) mg/dl Creatinine 1.12 (0.6-1.4) mg/dl Est Cr Clr Drug Dosing 58.2 ml/min Est GFR ( Amer) 77.8 ml/min Est GFR (Non-Af Amer) 67.1 ml/min BUN/Creatinine Ratio 35.7 H (10-20) Glucose 132 H (70-99(Fasting)) mg/dl Calcium 10.4 H (8.6-10.3) mg/dl Total Bilirubin 0.7 (0.2-1.0) mg/dl AST 36 (13-39) U/L ALT 84 H (7-52) U/L Alkaline Phosphatase 148 H (34-104) U/L Troponin I High Sens 11.2 (0-20) pg/ml B-Natriuretic Peptide 150 H (0-100) pg/ml Total Protein 6.7 (6.0-8.3) gm/dl Albumin 3.0 L (3.4-5.0) gm/dl Globulin 3.7 (2.5-4.0) gm/dl Albumin/Globulin Ratio 0.8 L (0.9-2) Adenovirus (PCR) Not Detected (NotDetected) B. pertussis DNA (PCR) Not Detected (NotDetected) B.parapertussis DNA PCR Not Detected (NotDetected) C. pneumoniae DNA (PCR) Not Detected (NotDetected) Coronavirus OC43 (PCR) Not Detected (NotDetected) Coronavirus HKU1 (PCR) Not Detected (NotDetected) Coronavirus 229E (PCR) Not Detected (NotDetected) SARS-CoV-2 (PCR) Not Detected (NotDetected) Coronavirus NL63 (PCR) Not Detected (NotDetected) Human Metapneumovir PCR Not Detected (NotDetected) Influenza Type A (PCR) Not Detected (NotDetected) Influenza Type B (PCR) Not Detected (NotDetected) M. pneumoniae (PCR) Not Detected (NotDetected) Parainfluenza 1 (PCR) Not Detected (NotDetected) Parainfluenza 2 (PCR) Not Detected (NotDetected) Parainfluenza 3 (PCR) Not Detected (NotDetected) Parainfluenza 4 (PCR) Not Detected (NotDetected) RSV (PCR) Not Detected (NotDetected) Entero/Rhino (PCR) Not Detected (NotDetected) Administered Medications Metronidazole (Flagyl) 500 mg in 100 mls @ 100 mls/hr IV Q8H JIE; Protocol Stop: 08/14/23 06:59 Last Infusion: 08/07/23 07:34 Dose: Infused Documented By: Admin: 08/07/23 06:30 Dose: 100 mls/hr Documented By: ABHAY Discontinued Medications Furosemide (Furosemide 40 Mg/4 Ml Vial) 40 mg IV ONE ONE Stop: 08/07/23 02:06 Last Admin: 08/07/23 02:16 Dose: 40 mg Documented By: ABHAY Cefepime HCl (Maxipime) 2,000 mg in 20 mls @ 5 mls/min IV NOW STA; Protocol Stop: 08/07/23 04:36 Last Admin: 08/07/23 04:59 Dose: 5 mls/min Documented By: ABHAY Vancomycin HCl 1,000 mg/ (Sodium Chloride) 270 mls @ 200 mls/hr IV NOW STA; Protocol Stop: 08/07/23 05:53 Last Admin: 08/07/23 08:06 Dose: 200 mls/hr Documented By: JENNIFER Ceftriaxone Sodium 1,000 mg/ (Dextrose) 50 mls @ 100 mls/hr IV Q24H JIE; Protocol Stop: 08/14/23 05:59 Last Admin: 08/07/23 05:42 Dose: Not Given Documented By: ABHAY Sodium Chloride (Nss) 500 mls @ 999 mls/hr IV .Q31M ONE Stop: 08/07/23 06:09 Last Infusion: 08/07/23 06:50 Dose: Infused Documented By: Admin: 08/07/23 05:42 Dose: 999 mls/hr Documented By: [facility] Imaging Data Radiologist's Impression: Chest X-Ray 08/07/23 01:37 XR chest 1V not portable HISTORY: 68 years-old Male Chest pain, nonspecific acute chest pain COMPARISON: 12/13/2022 TECHNIQUE: AP view of the chest cardiac silhouette is enlarged. Pulmonary vascular congestion with interstitial coarsening. FINDINGS: Bibasilar and midlung consolidative opacities. No pneumothorax. Probable trace pleural effusions. Degenerative changes of the shoulders and spine. IMPRESSION: 1. Cardiomegaly with pulmonary edema. 2. Bibasilar predominant consolidation may represent atelectasis versus pneumonitis. ACT 112: Negative or not required by law. The above report was generated using voice recognition software. It may contain grammatical, syntax or spelling errors. Electronically signed by: Devin Mena M.D. 08/07/2023 7:24 AM Discharge Plan Visit Data Chief Complaint: Shortness of Breath/Dyspnea Stated Complaint: SHORT OF BREATH/LOW o2 SATS/COUGH ED Provider: Lisha Snyder Discharge Problem: Congestive heart failure, Microcephaly, Intellectual disability, Myelodysplasia (myelodysplastic syndrome), Bilateral pulmonary infiltrates Patient Disposition: Admitted As Inpatient Discharge Instructions Interventions: ED Discharge Assessment Last Done: 08/07/23 04:49 Discharge Problem: Congestive heart failure Qualifiers: Heart failure type: unspecified Heart failure chronicity: acute Qualified Code(s): I50.9 - Heart failure, unspecified
[2023-08-07] MEDS: POLYETHYLENE (MIRALAX) 17 GM PACK PEG SCH (08:56)
[2023-08-07] MEDS: DOCUSATE SODIUM SYRUP 100 MG/10 ML UDC PEG SCH (08:56)
[2023-08-07] MEDS: ENOXAPARIN INJ 40 MG/0.4 ML SYR SQ SCH (08:56)
[2023-08-07] MEDS: cloZAPine 25 MG TAB PO SCH ×2 (08:57→22:05)
[2023-08-07] MEDS: CHLORHEXIDINE GLUCONATE 0.12% 480 ML MT SCH ×2 (08:58→22:05)
[2023-08-07] MEDS: allopurinoL 100 MG TAB PEG SCH ×2 (08:58→22:04)
[2023-08-07] MEDS: LACTOBACILLUS ACIDOPHILUS 1 GM PACK PEG SCH ×2 (08:58→22:04)
[2023-08-07] MEDS: FLUTICASONE PROPIONATE NA SPR 16 GM BTL SCH (08:58)
--- NOTE | 2023-08-07 12:26 | Pharmacy Report ---
Pharmacy PK ABX Note - Date of Service August 07, 2023 - Assessment and Plan Assessment 68 year old M receiving vancomycin/cefepime/metronidazole for treatment of possible pneumonia. Pertinent microbiologic data includes: Positive MRSA Nasal Swab, Blood cultures pending. WBC 2.56, Procalcitonin elevated 4.69. CXray " Bibasilar predominant consolidation may represent atelectasis versus pneumonitis." Plan Vancomycin * 1000 mg IV x 1 received in ED * Maintenance dose: 1250 mg IV every 18 hours * Regimen is predicted to achieve target AUC/TAYLOR of 400-600 mg/L.hr * Random level to be ordered if continued > 48 hours Pharmacy will continue to follow and will adjust dose/frequency as necessary. Thank you. Pharmacy has transitioned to AUC monitoring for vancomycin. AUC/TAYLOR is the preferred PK/PD target and is associated with decreased risk of nephrotoxicity compared to traditional trough targets.
[2023-08-07] MEDS: POTASSIUM CHLORIDE / WTR 10 MEQ/100 ML PLCT IV SCH ×4 (12:27→16:19)
[2023-08-07] MEDS ORDERED: TUBE FEEDING WATER FLUSH GT SCH (13:00)
--- NOTE | 2023-08-07 13:21 | XCELERA ---
[id number] \\[id number]
[2023-08-07] MEDS: VANCOMYCIN HCL 1,250 MG in SODIUM CHLORIDE 0.9% 250 ML IV SCH (14:19)
[2023-08-07] MEDS ORDERED: SODIUM CHLORIDE 0.9% 1,000 ML IV SCH (16:45)
[2023-08-07] MEDS: FUROSEMIDE 40 MG/4 ML VIAL IV SCH (17:58)
[2023-08-07] MEDS: CEFEPIME 2,000 MG in SYRINGE 0 ML IV SCH (18:23)
--- NOTE | 2023-08-07 19:16 | Hospitalist Progress Note ---
Date of Service August 07, 2023 Assessment & Plan (1) Acute respiratory failure with hypoxia: Plan: Supplemental oxygen to maintain saturation greater than 90%. Treat suspected pneumonitis and CHF (2) Acute diastolic CHF (congestive heart failure): Plan: Cardiac echo report noted. Normal ejection fraction. Continue intravenous Lasix. Serial chest x-ray. Monitor intake and output (3) Aspiration pneumonitis: Plan: Continue intravenous antibiotic therapy and parenteral steroid therapy. Serial chest x-ray (4) Hypokalemia: Plan: Parenteral replacement. Serial labs (5) Microcephaly: Plan: Congenital. Supportive care (6) Seizure disorder: Plan: Stable. Continue current medical (7) Esophageal dyskinesia: Plan: PEG tube feeding dependent Plan Hopeful discharge back to [facility] soon Admission and Anticipated Discharge Date Admission Date: August 07, 2023 Subjective Awake but nonverbal. Cognitive dysfunction due to congenital microcephaly. He has a chronic PEG tube and previous episodes of aspiration. He currently has acute hypoxic respiratory failure. Chest x-ray however looks like congestive heart failure. Cardiac echo reveals normal ejection fraction with diastolic dysfunction. BNP is elevated. He is now on intravenous Lasix. Hendrix catheter has been placed. He remains on cefepime and Flagyl for possible aspiration pneumonitis/pneumonia. Potassium replacement underway. Oxygen saturation 91% on 4 L at the time of my examination. Review of Systems 2 Review of Systems: The patient is nonverbal with baseline cognitive dysfunction and cannot answer any questions regarding review of systems Physical Exam 2 Physical Exam: General-alert , nonverbal. No distress. No fever HEENT-microcephaly noted. Pupils equal and reactive to light, extraocular muscles intact Neck-no lymphadenopathy or thyromegaly, trachea midline Chest-bilateral rhonchi. No wheezing Cardiac-regular rate and rhythm, normal S1 and S2 Abdomen-normal bowel sounds, no hepatosplenomegaly Extremities-no edema Neuro-no focal deficits. Awake but nonverbal Psych-unable to assess Results & Data Results & Data Vital Signs (Past 12 Hours) Vital Signs Pulse Pulse Resp BP BP Pulse Ox O2 Del Method 08/07/23 18:32 Room Air 08/07/23 18:04 85 33 H 91 Oxymask 08/07/23 18:04 120/58 L 08/07/23 18:04 85 20 120/58 L 91 Oxymask 08/07/23 18:00 84 41 H 91 08/07/23 17:00 89 31 H 91 08/07/23 16:00 86 30 H 94 08/07/23 15:31 84 08/07/23 15:00 81 35 H 91 08/07/23 14:00 80 31 H 96 08/07/23 13:00 82 37 H 91 08/07/23 12:31 80 36 H 90 08/07/23 12:31 116/56 L 08/07/23 12:00 80 32 H 93 08/07/23 11:30 Oxymask 08/07/23 11:00 78 33 H 95 08/07/23 10:00 83 28 H 92 08/07/23 09:38 83 20 91 Oxymask 08/07/23 09:00 82 35 H 91 08/07/23 08:00 81 32 H 89 L 08/07/23 07:59 81 08/07/23 07:34 82 20 109/54 L 95 Oxymask 08/07/23 07:33 83 36 H 95 08/07/23 07:33 109/54 L O2 Flow Rate 08/07/23 18:32 08/07/23 18:04 4 08/07/23 18:04 08/07/23 18:04 5 08/07/23 18:00 08/07/23 17:00 08/07/23 16:00 08/07/23 15:31 08/07/23 15:00 08/07/23 14:00 08/07/23 13:00 08/07/23 12:31 08/07/23 12:31 08/07/23 12:00 08/07/23 11:30 4 08/07/23 11:00 08/07/23 10:00 08/07/23 09:38 4 08/07/23 09:00 08/07/23 08:00 08/07/23 07:59 08/07/23 07:34 2 08/07/23 07:33 08/07/23 07:33 Laboratory Results 08/07/23 01:24 08/07/23 01:24 PG Care Time/CCT Total # of Minutes Spent Total Time Spent with Patient: Total time spent is greater than 50% in coordination of care (as documented) at patient's floor/unit and/or counseling patient: Coding Level of Care Code 91905 SUB INP/OBS CARE 350MIN Diagnoses Acute respiratory failure with hypoxia J96.01 Acute diastolic CHF (congestive heart failure) I50.31 Aspiration pneumonitis J69.0 Hypokalemia E87.6 Microcephaly Q02 Seizure disorder G40.909 Esophageal dyskinesia K22.4
--- NOTE | 2023-08-07 19:33 | Electrocardiogram Report ---
Test Reason : Blood Pressure : / mmHG Vent. Rate : 087 BPM Atrial Rate : 087 BPM P-R Int : 212 ms QRS Dur : 102 ms QT Int : 374 ms P-R-T Axes : 070 -72 065 degrees QTc Int : 450 ms Sinus rhythm with 1st degree A-V block Left axis deviation Voltage criteria for left ventricular hypertrophy Abnormal ECG When compared with ECG of 17-NOV-2014 13:33, UT interval has increased Questionable change in QRS duration Confirmed by Von Radford ([id number]) on 08/07/2023 7:32:38 PM Referred By: REFERRED SELF Confirmed By:Elvis Radford
[2023-08-07] MEDS: methylPREDNISolone 40 MG in SYRINGE 0 ML IV SCH (22:03)
[2023-08-08] MEDS: methylPREDNISolone 40 MG in SYRINGE 0 ML IV SCH ×3 (03:30→21:23)
--- NOTE | 2023-08-08 04:19 | Billing Data ---
Date of Service August 08, 2023 Coding Level of Care Code 01166 INT INP/OBS CARE
[2023-08-08] MEDS: metroNIDAZOLE 500 MG/100 ML BAG IV SCH ×3 (06:07→21:52)
[2023-08-08] MEDS: CEFEPIME 2,000 MG in SYRINGE 0 ML IV SCH ×2 (06:11→17:16)
--- NOTE | 2023-08-08 07:20 | XRay Report ---
SINGLE VIEW CHEST CLINICAL HISTORY: Acute hypoxic respiratory failure. FINDINGS: An AP, portable, upright chest radiograph is compared to study dated 08/07/2023. The examin ation is degraded by portable technique and patient rotation. The heart is enlarged. There is pulmon roseanna vascular congestion. Chronic interstitial thickening is similar to previous. There are multifocal bilateral airspace opacities. There are layering pleural effusions with dependent consolidation. No pneumothorax is seen. The skeletal structures are osteopenic. The bony thorax is grossly intact. Arth ritic change is noted in the shoulders and spine. IMPRESSION: 1. Cardiomegaly with evidence of congestive failure. 2. Bilateral airspace opacities could represent pulmonary edema and/or an infectious/inflammatory pne umonitis. Clinical correlation will be required and radiographic follow-up to resolution is recommend ed. 3. Layering pleural effusions with dependent consolidation. These have increased from previous. ACT 112: Negative or not required by law. ' Electronically signed by: Jones Goldstein M.D. 08/08/2023 7:18 AM
[2023-08-08] MEDS: VANCOMYCIN HCL 1,250 MG in SODIUM CHLORIDE 0.9% 250 ML IV SCH (08:15)
[2023-08-08] MEDS: ENOXAPARIN INJ 40 MG/0.4 ML SYR SQ SCH (08:23)
[2023-08-08] MEDS: DOCUSATE SODIUM SYRUP 100 MG/10 ML UDC PEG SCH (08:23)
[2023-08-08] MEDS: cloZAPine 25 MG TAB PO SCH ×2 (08:24→21:25)
[2023-08-08] MEDS: FLUTICASONE PROPIONATE NA SPR 16 GM BTL SCH (08:25)
[2023-08-08] MEDS: CHLORHEXIDINE GLUCONATE 0.12% 480 ML MT SCH ×2 (08:25→21:27)
[2023-08-08] MEDS: allopurinoL 100 MG TAB PEG SCH ×2 (08:25→21:24)
[2023-08-08] MEDS: LACTOBACILLUS ACIDOPHILUS 1 GM PACK PEG SCH ×2 (08:25→21:27)
[2023-08-08] MEDS: FUROSEMIDE 40 MG/4 ML VIAL IV SCH ×2 (08:26→16:31)
[2023-08-08 08:38] LABS: Potassium 4.2 mmol/L (3.5-5.1)
[2023-08-08 08:39] LABS: BUN Creatinine Ratio 32.1 (10-20); Calcium 9.5 mg/dl (8.6-10.3); Creatinine Clr Calc Pharmacy 49.7 ml/min; Est GFR (African American) 64.4 ml/min; Est GFR (Non-African American) 55.5 ml/min
[2023-08-08 09:13] LABS: Basophils # (auto) 0.01 K/uL (0.00-0.20); Basophils % (auto) 0.1 %; Dohle Bodies 1+; Hematocrit (blood only) 32.7 % (42.0-52.0); Hemoglobin 11.2 g/dl (14.0-18.0); Immature Granulocytes % (auto) 1.3 %; Lymphocytes # (auto) 0.23 K/uL (1.20-3.40); Lymphocytes % (auto) 3.1 %; Mean Corpuscular Hemoglobin 33.5 pg (25.0-34.0); Mean Corpuscular Hgb Conc 34.3 g/dL (32.0-36.0); Mean Corpuscular Volume 97.9 fL (80.0-100.0); Monocytes # (auto) 0.29 K/uL (0.11-0.59); Monocytes % (auto) 3.9 %; Neutrophils # (auto) 6.84 K/uL (1.40-6.50); Neutrophils % (auto) 91.6 %; Nucleated RBC # (auto) 0.03 K/uL (0.00-0.12); Nucleated RBC % (auto) 0.4 %; Platelet Count 94 K/uL (130-400); Polychromasia 1+; RDW Coefficient of Variation 13.8 % (11.5-14.5); RDW Standard Deviation 49.1 fL (36.4-46.3); Red Blood Count 3.34 M/uL (4.70-6.10); Toxic Vacuolation 1+; White Blood Count 7.47 K/ul (4.8-10.8)
[2023-08-08] MEDS: PANTOprazole 40 MG in SYRINGE 0 ML IV SCH (11:07)
--- NOTE | 2023-08-08 15:53 | Hospitalist Progress Note ---
Date of Service August 08, 2023 Assessment & Plan (1) Acute respiratory failure with hypoxia: Plan: Supplemental oxygen to maintain saturation greater than 90%. Treat suspected pneumonitis and CHF (2) Acute diastolic CHF (congestive heart failure): Plan: Cardiac echo report noted. Normal ejection fraction. Continue intravenous Lasix. Serial chest x-ray. Monitor intake and output (3) Aspiration pneumonitis: Plan: Continue intravenous antibiotic therapy and parenteral steroid therapy. Serial chest x-ray (4) Hypokalemia: Plan: Parenteral replacement. Serial labs (5) Microcephaly: Plan: Congenital. Supportive care (6) Seizure disorder: Plan: Stable. Continue current medical (7) Esophageal dyskinesia: Plan: PEG tube feeding dependent Plan Caregiver will discuss with personal detention staff his CODE STATUS which currently is a full code. In my opinion, he should be a DNR/DNI with aggressive treatment up to the point of no intubation if his status worsens. Admission and Anticipated Discharge Date Admission Date: August 07, 2023 Subjective The patient is alert. Chest x-ray reveals diffuse bilateral infiltrates. He remains on 5 L of oxygen with 90% saturation. Lengthy discussion with caregiver regarding CODE STATUS. She will discuss with staff regarding possible DNR status. He remains on vancomycin, cefepime, Flagyl, day 2. Also parenteral Solu-Medrol. Also parenteral Lasix every 12 hours. Chest x-ray will be obtained daily for the next several days Review of Systems 2 Review of Systems: The patient is nonverbal with baseline cognitive dysfunction and cannot answer any questions regarding review of systems Physical Exam 2 Physical Exam: General-alert , nonverbal. No distress. No fever HEENT-microcephaly noted. Pupils equal and reactive to light, extraocular muscles intact Neck-no lymphadenopathy or thyromegaly, trachea midline Chest-bilateral rhonchi. No wheezing Cardiac-regular rate and rhythm, normal S1 and S2 Abdomen-normal bowel sounds, no hepatosplenomegaly Extremities-no edema Neuro-no focal deficits. Awake but nonverbal Psych-unable to assess Results & Data Results & Data Vital Signs (Past 12 Hours) Vital Signs Temp Pulse Pulse Resp BP Pulse Ox Pulse Ox 08/08/23 15:36 36.6 C 102 H 18 118/68 90 08/08/23 11:10 37.0 C 101 H 18 104/53 L 91 08/08/23 08:03 37.5 C 106 H 18 101/45 L 90 08/08/23 08:00 08/08/23 07:00 109 H 08/08/23 05:05 91 O2 Del Method O2 Del Method O2 Flow Rate O2 Flow Rate 08/08/23 15:36 Nasal Cannula 5 08/08/23 11:10 Nasal Cannula 5 08/08/23 08:03 Nasal Cannula 5 08/08/23 08:00 Nasal Cannula 5 08/08/23 07:00 08/08/23 05:05 Room Air 5 Laboratory Results 08/08/23 07:20 08/08/23 07:20 PG Care Time/CCT Total # of Minutes Spent Total Time Spent with Patient: Total time spent is greater than 50% in coordination of care (as documented) at patient's floor/unit and/or counseling patient: Coding Level of Care Code 85173 SUB INP/OBS CARE 3/50MIN Diagnoses Acute respiratory failure with hypoxia J96.01 Acute diastolic CHF (congestive heart failure) I50.31 Aspiration pneumonitis J69.0 Hypokalemia E87.6 Microcephaly Q02 Seizure disorder G40.909 Esophageal dyskinesia K22.4
[2023-08-09] MEDS: methylPREDNISolone 40 MG in SYRINGE 0 ML IV SCH ×3 (03:02→20:01)
[2023-08-09] MEDS: CEFEPIME 2,000 MG in SYRINGE 0 ML IV SCH ×2 (06:24→17:02)
[2023-08-09] MEDS: metroNIDAZOLE 500 MG/100 ML BAG IV SCH ×3 (06:37→22:31)
--- NOTE | 2023-08-09 07:20 | XRay Report ---
XR chest 1V portable HISTORY: 68 years-old Male pneumonia, CHF, resp failure acute respiratory failure COMPARISON: 08/08/2023 TECHNIQUE: AP view of the chest FINDINGS: Cardiac silhouette is enlarged. Pulmonary vascular congestion with interstitial coarsening. Layering pleural effusions with bibasilar consolidation redemonstrated, mildly improved. Bones appear grossly intact. IMPRESSION: 1. Cardiomegaly with stable to slightly improved pulmonary edema. 2. Layering pleural effusions with improving bibasilar consolidation. ACT 112: Negative or not required by law. The above report was generated using voice recognition software. It may contain grammatical, syntax o r spelling errors. Electronically signed by: Devin Mena M.D. 08/09/2023 7:19 AM
[2023-08-09 07:58] LABS: Hematocrit (blood only) 31.5 % (42.0-52.0); Hemoglobin 10.9 g/dl (14.0-18.0); Mean Corpuscular Hemoglobin 33.3 pg (25.0-34.0); Mean Corpuscular Hgb Conc 34.6 g/dL (32.0-36.0); Mean Corpuscular Volume 96.3 fL (80.0-100.0); Mean Platelet Volume 14.1 fL (9.4-12.4); Nucleated RBC # (auto) 0.04 K/uL (0.00-0.12); Nucleated RBC % (auto) 0.3 %; Platelet Count 106 K/uL (130-400); RDW Coefficient of Variation 13.8 % (11.5-14.5); RDW Standard Deviation 49.2 fL (36.4-46.3); Red Blood Count 3.27 M/uL (4.70-6.10); White Blood Count 11.57 K/ul (4.8-10.8)
[2023-08-09 08:04] LABS: Basophils # (auto) 0.13 K/uL (0.00-0.20); Basophils % (auto) 1.1 %; Dohle Bodies 1+; Immature Granulocytes # (auto) 0.28 K/uL (0.01-0.20); Immature Granulocytes % (auto) 2.4 %; Lymphocytes # (auto) 0.61 K/uL (1.20-3.40); Lymphocytes % (auto) 5.3 %; Monocytes # (auto) 0.81 K/uL (0.11-0.59); Neutrophils # (auto) 9.74 K/uL (1.40-6.50); Neutrophils % (auto) 84.2 %; Toxic Vacuolation 1+
[2023-08-09 08:23] LABS: BUN Creatinine Ratio 37.5 (10-20); Calcium 9.4 mg/dl (8.6-10.3); Creatinine Clr Calc Pharmacy 32.2 ml/min; Est GFR (African American) 42.7 ml/min; Est GFR (Non-African American) 36.8 ml/min; Potassium 3.3 mmol/L (3.5-5.1)
[2023-08-09] MEDS: cloZAPine 25 MG TAB PO SCH ×2 (08:56→20:02)
[2023-08-09] MEDS: FLUTICASONE PROPIONATE NA SPR 16 GM BTL SCH (08:56)
[2023-08-09] MEDS: DOCUSATE SODIUM SYRUP 100 MG/10 ML UDC PEG SCH (08:57)
[2023-08-09] MEDS: allopurinoL 100 MG TAB PEG SCH ×2 (08:57→20:01)
[2023-08-09] MEDS: ENOXAPARIN INJ 40 MG/0.4 ML SYR SQ SCH (08:57)
[2023-08-09] MEDS: LACTOBACILLUS ACIDOPHILUS 1 GM PACK PEG SCH ×2 (08:58→20:02)
--- NOTE | 2023-08-09 08:59 | Pharmacy Report ---
Pharmacy PK ABX Note - Date of Service August 09, 2023 - Assessment and Plan Assessment 68 year old M receiving vancomycin/cefepime/metronidazole for treatment of possible pneumonia (aspiration?). Pertinent microbiologic data includes: Positive MRSA Nasal Swab, Blood cultures show no growth at 48 hours. Repeat blood cultures (08/08) pending. Worsening leukocytosis (2 -> 12 K) and worsening MIKAL (SCr: 1.12 -> 1.31 -> 1.84 mg/dL). CXray " Bibasilar predominant consolidation may represent atelectasis versus pneumonitis." Plan Vancomycin * Patient originally ordered vancomycin 1250 mg IV q18h based on initial renal function * Given uptrend yesterday, 0000 dose of vancomycin was held with repeat level this morning * Random vancomycin level of 18.8 mcg/mL this morning (~24 hours after last dose) * Will give 750 mg IV x 1 (~10 mg/kg) this morning w/ repeat random level on 08/10/23 * Dose by random level until MIKAL resolved Pharmacy will continue to follow and will adjust dose/frequency as necessary. Thank you. Pharmacy has transitioned to AUC monitoring for vancomycin. AUC/TAYLOR is the preferred PK/PD target and is associated with decreased risk of nephrotoxicity compared to traditional trough targets.
[2023-08-09] MEDS ORDERED: VANCOMYCIN HCL 750 MG in SODIUM CHLORIDE 0.9% 250 ML IV ONE (09:00)
[2023-08-09] MEDS: FUROSEMIDE 40 MG/4 ML VIAL IV SCH (10:29)
[2023-08-09] MEDS: POLYETHYLENE (MIRALAX) 17 GM PACK PEG SCH (10:29)
[2023-08-09] MEDS: PANTOprazole 40 MG in SYRINGE 0 ML IV SCH (10:31)
[2023-08-09] MEDS ORDERED: POTASSIUM CHLORIDE 20 MEQ/15 ML UDC PEG ONE (11:15)
[2023-08-09] MEDS: CHLORHEXIDINE GLUCONATE 0.12% 480 ML MT SCH ×2 (11:58→20:02)
--- NOTE | 2023-08-09 16:47 | Hospitalist Progress Note ---
Date of Service August 09, 2023 Assessment & Plan (1) Acute respiratory failure with hypoxia: Plan: Supplemental oxygen to maintain saturation greater than 90%. Treat suspected pneumonitis and CHF. Wean off as tolerated (2) Acute diastolic CHF (congestive heart failure): Plan: Cardiac echo report noted. Normal ejection fraction. Resolved with intravenous Lasix which was discontinued today, August 09, due to rapid increase in creatinine levels. Chest x-ray done today, August 09, looks better though. Monitor intake and output (3) Aspiration pneumonitis: Plan: Continue intravenous antibiotic therapy and parenteral steroid therapy. Serial chest x-ray. Improving (4) Hypokalemia: Plan: Potassium mL elixir ordered via PEG tube today, August 09. Serial labs (5) Microcephaly: Plan: Congenital. Supportive care (6) Seizure disorder: Plan: Stable. Continue current medical (7) Esophageal dyskinesia: Plan: PEG tube feeding dependent Plan He is now DNR/DNI status. Hopeful eventual return to personal shelter. Admission and Anticipated Discharge Date Admission Date: August 07, 2023 Subjective No significant clinical change. Medical Laboratory Technical Officer present with POLST form which is signed. He is now DNR/DNI status. Potassium elixir administered through PEG tube for mild hypokalemia. He remains on 5 L oxygen. Creatinine has increased significantly with diuresis. Lasix has been discontinued. Cardiac echo reveals normal ejection fraction with diastolic dysfunction. Chest x-ray done today, August 09, looks slightly better. He remains on vancomycin, cefepime, Flagyl, day 3. He is also on parenteral steroid therapy. MRSA nasal swab positive Review of Systems 2 Review of Systems: The patient is nonverbal with baseline cognitive dysfunction and cannot answer any questions regarding review of systems Physical Exam 2 Physical Exam: General-alert , nonverbal. No distress. No fever HEENT-microcephaly noted. Pupils equal and reactive to light, extraocular muscles intact Neck-no lymphadenopathy or thyromegaly, trachea midline Chest-bilateral rhonchi. No wheezing Cardiac-regular rate and rhythm, normal S1 and S2 Abdomen-normal bowel sounds, no hepatosplenomegaly Extremities-no edema Neuro-no focal deficits. Awake but nonverbal Psych-unable to assess Results & Data Results & Data Vital Signs (Past 12 Hours) Vital Signs Temp Pulse Pulse Resp BP Pulse Ox O2 Del Method 11/29/23 16:10 95 H 08/09/23 15:11 36.7 C 88 20 110/65 92 Nasal Cannula 08/09/23 11:44 37.0 C 89 20 128/73 92 Nasal Cannula 08/09/23 09:50 Nasal Cannula 08/09/23 07:52 81 08/09/23 07:46 36.7 C 82 20 128/69 93 Nasal Cannula O2 Flow Rate 08/09/23 16:10 08/09/23 15:11 5 08/09/23 11:44 5 08/09/23 09:50 5 08/09/23 07:52 08/09/23 07:46 5 Laboratory Results 08/09/23 07:13 08/09/23 07:13 PG Care Time/CCT Total # of Minutes Spent Total Time Spent with Patient: Total time spent is greater than 50% in coordination of care (as documented) at patient's floor/unit and/or counseling patient: Coding Level of Care Code 51592 SUB INP/OBS CARE 3/50MIN Diagnoses Acute respiratory failure with hypoxia J96.01 Acute diastolic CHF (congestive heart failure) I50.31 Aspiration pneumonitis J69.0 Hypokalemia E87.6 Microcephaly Q02 Seizure disorder G40.909 Esophageal dyskinesia K22.4
[2023-08-10] MEDS: methylPREDNISolone 40 MG in SYRINGE 0 ML IV SCH ×3 (04:10→20:00)
[2023-08-10] MEDS: CEFEPIME 2,000 MG in SYRINGE 0 ML IV SCH ×2 (04:10→17:48)
[2023-08-10] MEDS: metroNIDAZOLE 500 MG/100 ML BAG IV SCH ×3 (06:03→22:08)
[2023-08-10 07:14] LABS: BUN Creatinine Ratio 42.6 (10-20); Calcium 9.5 mg/dl (8.6-10.3); Creatinine Clr Calc Pharmacy 28.3 ml/min; Est GFR (African American) 36.6 ml/min; Est GFR (Non-African American) 31.6 ml/min; Potassium 3.3 mmol/L (3.5-5.1)
[2023-08-10 07:22] LABS: Hematocrit (blood only) 35.7 % (42.0-52.0); Hemoglobin 11.8 g/dl (14.0-18.0); Mean Corpuscular Hemoglobin 33.2 pg (25.0-34.0); Mean Corpuscular Hgb Conc 33.1 g/dL (32.0-36.0); Mean Corpuscular Volume 100.6 fL (80.0-100.0); Nucleated RBC # (auto) 0.04 K/uL (0.00-0.12); Nucleated RBC % (auto) 0.3 %; Platelet Count 111 K/uL (130-400); RDW Coefficient of Variation 14.2 % (11.5-14.5); RDW Standard Deviation 52.6 fL (36.4-46.3); Red Blood Count 3.55 M/uL (4.70-6.10); White Blood Count 12.91 K/ul (4.8-10.8)
[2023-08-10 07:23] LABS: Basophils # (auto) 0.12 K/uL (0.00-0.20); Basophils % (auto) 0.9 %; Immature Granulocytes # (auto) 0.29 K/uL (0.01-0.20); Immature Granulocytes % (auto) 2.2 %; Lymphocytes # (auto) 0.84 K/uL (1.20-3.40); Lymphocytes % (auto) 6.5 %; Monocytes # (auto) 1.33 K/uL (0.11-0.59); Monocytes % (auto) 10.3 %; Neutrophils # (auto) 10.33 K/uL (1.40-6.50); Neutrophils % (auto) 80.1 %
[2023-08-10] MEDS: DEXTROSE 5% 1,000 ML IV SCH ×2 (07:54→22:08)
[2023-08-10] MEDS: cloZAPine 25 MG TAB PO SCH ×2 (07:58→20:01)
[2023-08-10] MEDS: LACTOBACILLUS ACIDOPHILUS 1 GM PACK PEG SCH ×2 (07:58→20:01)
[2023-08-10] MEDS: allopurinoL 100 MG TAB PEG SCH ×2 (07:58→20:01)
[2023-08-10] MEDS: DOCUSATE SODIUM SYRUP 100 MG/10 ML UDC PEG SCH (07:58)
[2023-08-10] MEDS: FLUTICASONE PROPIONATE NA SPR 16 GM BTL SCH (07:58)
[2023-08-10] MEDS: CHLORHEXIDINE GLUCONATE 0.12% 480 ML MT SCH ×2 (07:58→20:02)
[2023-08-10] MEDS: ENOXAPARIN INJ 40 MG/0.4 ML SYR SQ SCH (07:58)
--- NOTE | 2023-08-10 08:28 | XRay Report ---
SINGLE VIEW CHEST CLINICAL HISTORY: Respiratory failure. FINDINGS: An AP, portable, upright chest radiograph is compared to study dated 08/09/2023. The examin ation is degraded by portable technique and patient rotation. The heart is enlarged. There is pulmon roseanna vascular congestion. Chronic interstitial thickening is similar to previous. There are multifocal bilateral airspace opacities, greatest in the left lower lung. There are small pleural effusions wit h dependent consolidation. No pneumothorax is seen. The skeletal structures are osteopenic. The bony thorax is grossly intact. Arthritic change is noted in the shoulders and spine. IMPRESSION: 1. Cardiomegaly with evidence of congestive failure. 2. Asymmetric airspace opacities are similar to previous. This could represent pulmonary edema and/or an infectious/inflammatory pneumonitis. Radiographic follow-up to resolution is recommended. 3. Small pleural effusions with dependent consolidation. These are likely unchanged. ACT 112: Negative or not required by law. Electronically signed by: Jones Goldstein M.D. 08/10/2023 8:27 AM
--- NOTE | 2023-08-10 08:35 | Pharmacy Report ---
Pharmacy PK ABX Note - Date of Service August 10, 2023 - Assessment and Plan Assessment 68 year old M receiving vancomycin/cefepime/metronidazole for treatment of possible pneumonia (aspiration?). Pertinent microbiologic data includes: Positive MRSA Nasal Swab, Blood cultures show no growth at 48 hours. Repeat blood cultures (08/08) pending. Worsening leukocytosis (2 -> 12 K) and worsening MIKAL (SCr: 1.12 -> 1.31 -> 1.84 --> 2.09 mg/dL). CXray " Bibasilar predominant consolidation may represent atelectasis versus pneumonitis." Plan Vancomycin * Patient given 750 mg IV yesterday at 1029 * Random vancomycin level of 17.8 mcg/mL this morning (~20 hours after last dose) * Will give 750 mg IV x 1 (~10 mg/kg) this morning w/ repeat random level on 08/11/23 * Dose by random level until MIKAL resolved Pharmacy will continue to follow and will adjust dose/frequency as necessary. Thank you. Pharmacy has transitioned to AUC monitoring for vancomycin. AUC/TAYLOR is the preferred PK/PD target and is associated with decreased risk of nephrotoxicity compared to traditional trough targets.
[2023-08-10] MEDS ORDERED: VANCOMYCIN HCL 750 MG in SODIUM CHLORIDE 0.9% 250 ML IV ONE (10:00)
[2023-08-10] MEDS: PANTOprazole 40 MG in SYRINGE 0 ML IV SCH (10:26)
[2023-08-10] MEDS: TUBE FEEDING WATER FLUSH PEG SCH ×6 (12:15→20:00)
--- NOTE | 2023-08-10 16:43 | Hospitalist Progress Note ---
Date of Service August 10, 2023 Assessment & Plan (1) Acute respiratory failure with hypoxia: Plan: Supplemental oxygen to maintain saturation greater than 90%. Treat suspected pneumonitis and CHF. Wean off as tolerated (2) Acute diastolic CHF (congestive heart failure): Plan: Cardiac echo report noted. Normal ejection fraction. Resolved with intravenous Lasix which was discontinued on August 09, due to rapid increase in creatinine levels. Chest x-ray done today, August 10, looks better upon my review. Monitor intake and output (3) Aspiration pneumonitis: Plan: Continue intravenous vancomycin, cefepime, Flagyl. Day 4. Continue parenteral steroid therapy. Serial chest x-ray. Improving (4) Hypokalemia: Plan: Potassium slightly low. Potassium mL elixir ordered via PEG tube. Serial labs (5) Microcephaly: Plan: Congenital. Supportive care (6) Seizure disorder: Plan: Stable. Continue current medical (7) Esophageal dyskinesia: Plan: PEG tube feeding dependent (8) Hypernatremia: Plan: Hyperosmolar hyponatremia due to intravascular volume depletion from Lasix, which has been discontinued. Hypotonic IV fluids are being administered. Serial labs. Plan He is now DNR/DNI status. Hopeful eventual return to personal snf. Admission and Anticipated Discharge Date Admission Date: August 07, 2023 Subjective The patient is awake and alert in no apparent distress despite elevated sodium level at 163. He is now on 0.225 normal saline. Repeat sodium level is pending. Chest x-ray done today, August 10, looks better to my eye. He remains on vancomycin/cefepime/Flagyl, day 4. Cardiac echo reveals normal ejection fraction. Potassium slightly low but stable at 3.3. Creatinine has risen slightly to 2.0. Will follow. Review of Systems 2 Review of Systems: The patient is nonverbal with baseline cognitive dysfunction and cannot answer any questions regarding review of systems Physical Exam 2 Physical Exam: General-alert , nonverbal. No distress. No fever HEENT-microcephaly noted. Pupils equal and reactive to light, extraocular muscles intact Neck-no lymphadenopathy or thyromegaly, trachea midline Chest-bilateral rhonchi. No wheezing Cardiac-regular rate and rhythm, normal S1 and S2 Abdomen-normal bowel sounds, no hepatosplenomegaly Extremities-no edema Neuro-no focal deficits. Awake but nonverbal Psych-unable to assess Results & Data Results & Data Vital Signs (Past 12 Hours) Vital Signs Temp Pulse Pulse Resp BP BP Pulse Ox 08/10/23 16:21 36.8 C 68 18 130/68 96 08/10/23 12:15 08/10/23 11:30 37.3 C 96 H 18 147/68 H 93 08/10/23 11:01 89 08/10/23 07:50 36.5 C 87 16 154/71 H 95 O2 Del Method O2 Flow Rate 08/10/23 16:21 Nasal Cannula 5 08/10/23 12:15 Nasal Cannula 5 08/10/23 11:30 Nasal Cannula 5 08/10/23 11:01 08/10/23 07:50 Nasal Cannula 5 Laboratory Results 08/10/23 06:01 PG Care Time/CCT Total # of Minutes Spent Total Time Spent with Patient: Total time spent is greater than 50% in coordination of care (as documented) at patient's floor/unit and/or counseling patient: Coding Level of Care Code 81671 SUB INP/OBS CARE 3/50MIN Diagnoses Acute respiratory failure with hypoxia J96.01 Acute diastolic CHF (congestive heart failure) I50.31 Aspiration pneumonitis J69.0 Hypokalemia E87.6 Microcephaly Q02 Seizure disorder G40.909 Esophageal dyskinesia K22.4 Hypernatremia E87.0
[2023-08-10 16:53] LABS: Calcium 9.3 mg/dl (8.6-10.3); Creatinine Clr Calc Pharmacy 28.6 ml/min; Est GFR (Non-African American) 31.9 ml/min; Potassium 3.1 mmol/L (3.5-5.1)
[2023-08-10] MEDS ORDERED: GLUCOSE 40% GEL 15 GM TUBE PO PRN (17:20)
[2023-08-10] MEDS ORDERED: CARBOHYDRATES FOR HYPOGLYCEMIA PO PRN (17:20)
[2023-08-10] MEDS ORDERED: DEXTROSE 50% 50 ML SYRINGE IV PRN (17:20)
[2023-08-10] MEDS ORDERED: GLUCOSE 10 TAB/TUBE PO PRN (17:20)
[2023-08-10] MEDS ORDERED: GLUCAGON FOR INJ 1 MG VIAL SQ PRN (17:20)
[2023-08-10] MEDS ORDERED: INSULIN ASPART PER UNIT CHARGE SC SCH ×2 (17:38→21:00)
[2023-08-10] MEDS ORDERED: Nursing to Pharmacy Communication SCH (19:00)
[2023-08-10] MEDS: POTASSIUM CHLORIDE 20 MEQ/15 ML UDC PEG SCH (20:04)
[2023-08-10] MEDS: INSULIN ASPART PER UNIT CHARGE SC SCH (23:21)
[2023-08-11] MEDS: CEFEPIME 2,000 MG in SYRINGE 0 ML IV SCH ×2 (04:11→17:50)
[2023-08-11] MEDS: methylPREDNISolone 40 MG in SYRINGE 0 ML IV SCH ×3 (04:11→20:40)
[2023-08-11] MEDS: INSULIN ASPART PER UNIT CHARGE SC SCH ×4 (05:51→21:01)
[2023-08-11] MEDS: metroNIDAZOLE 500 MG/100 ML BAG IV SCH ×3 (05:52→23:00)
[2023-08-11 07:00] LABS: Basophils # (auto) 0.07 K/uL (0.00-0.20); Basophils % (auto) 0.6 %; Hematocrit (blood only) 34.5 % (42.0-52.0); Hemoglobin 11.2 g/dl (14.0-18.0); Immature Granulocytes # (auto) 0.22 K/uL (0.01-0.20); Immature Granulocytes % (auto) 1.8 %; Lymphocytes # (auto) 0.77 K/uL (1.20-3.40); Lymphocytes % (auto) 6.1 %; Mean Corpuscular Hemoglobin 33.3 pg (25.0-34.0); Mean Corpuscular Hgb Conc 32.5 g/dL (32.0-36.0); Mean Corpuscular Volume 102.7 fL (80.0-100.0); Mean Platelet Volume 13.5 fL (9.4-12.4); Monocytes # (auto) 0.86 K/uL (0.11-0.59); Monocytes % (auto) 6.9 %; Neutrophils # (auto) 10.61 K/uL (1.40-6.50); Neutrophils % (auto) 84.6 %; Nucleated RBC # (auto) 0.03 K/uL (0.00-0.12); Nucleated RBC % (auto) 0.2 %; Platelet Count 104 K/uL (130-400); RDW Coefficient of Variation 14.6 % (11.5-14.5); RDW Standard Deviation 55.3 fL (36.4-46.3); Red Blood Count 3.36 M/uL (4.70-6.10); White Blood Count 12.53 K/ul (4.8-10.8)
[2023-08-11 07:42] LABS: BUN Creatinine Ratio 45.8 (10-20); Creatinine Clr Calc Pharmacy 31.2 ml/min; Est GFR (African American) 41.1 ml/min; Est GFR (Non-African American) 35.4 ml/min; Potassium 3.6 mmol/L (3.5-5.1)
[2023-08-11] MEDS: DEXTROSE 5% 1,000 ML IV SCH ×2 (08:14→22:14)
--- NOTE | 2023-08-11 08:25 | Pharmacy Report ---
Pharmacy PK ABX Note - Date of Service August 11, 2023 - Assessment and Plan Assessment 68 year old M receiving vancomycin/cefepime/metronidazole for treatment of possible pneumonia (aspiration?). Pertinent microbiologic data includes: Positive MRSA Nasal Swab, Blood cultures show no growth. Repeat blood cultures (08/08) NGTD. Stablizing MIKAL (SCr: 1.12 -> 1.31 -> 1.84 --> 2.09 --> 1.9 mg/dL). CXray " Bibasilar predominant consolidation may represent atelectasis versus pneumonitis." Plan Vancomycin * Patient given 750 mg IV yesterday at 1000 * Random vancomycin level of 16.6 mcg/mL this morning (~20 hours after last dose) * Will give 1000 mg IV x 1 (~10 mg/kg) this morning w/ repeat random level on 08/12/23 * Dose by random level until MIKAL resolved Pharmacy will continue to follow and will adjust dose/frequency as necessary. Thank you. Pharmacy has transitioned to AUC monitoring for vancomycin. AUC/TAYLOR is the preferred PK/PD target and is associated with decreased risk of nephrotoxicity compared to traditional trough targets.
[2023-08-11] MEDS ORDERED: VANCOMYCIN HCL 1,000 MG in SODIUM CHLORIDE 0.9% 250 ML IV ONE (10:00)
[2023-08-11] MEDS: TUBE FEEDING WATER FLUSH PEG SCH ×9 (10:29→20:46)
[2023-08-11] MEDS: allopurinoL 100 MG TAB PEG SCH ×2 (10:41→21:07)
[2023-08-11] MEDS: cloZAPine 25 MG TAB PO SCH ×2 (10:43→21:01)
[2023-08-11] MEDS: POTASSIUM CHLORIDE 20 MEQ/15 ML UDC PEG SCH ×2 (10:43→21:07)
[2023-08-11] MEDS: DOCUSATE SODIUM SYRUP 100 MG/10 ML UDC PEG SCH (10:43)
[2023-08-11] MEDS: LACTOBACILLUS ACIDOPHILUS 1 GM PACK PEG SCH ×2 (10:43→21:06)
[2023-08-11] MEDS: CHLORHEXIDINE GLUCONATE 0.12% 480 ML MT SCH ×2 (10:55→21:06)
[2023-08-11] MEDS: ENOXAPARIN INJ 40 MG/0.4 ML SYR SQ SCH (10:56)
[2023-08-11] MEDS: FLUTICASONE PROPIONATE NA SPR 16 GM BTL SCH (10:56)
[2023-08-11] MEDS: PANTOprazole 40 MG in SYRINGE 0 ML IV SCH (11:10)
[2023-08-11] MEDS: POLYETHYLENE (MIRALAX) 17 GM PACK PEG SCH (13:23)
--- NOTE | 2023-08-11 15:57 | Hospitalist Progress Note ---
Date of Service August 11, 2023 Assessment & Plan (1) Acute respiratory failure with hypoxia: Plan: Supplemental oxygen to maintain saturation greater than 90%. Treat suspected pneumonitis and CHF. Wean off as tolerated. Appears to be improving (2) Acute diastolic CHF (congestive heart failure): Plan: Cardiac echo report noted. Normal ejection fraction. Resolved with intravenous Lasix which was discontinued on August 09, due to rapid increase in creatinine levels. Chest x-ray done on August 10 looks better upon my review. Monitor intake and output. Will repeat chest x-ray again tomorrow, August 12 (3) Aspiration pneumonitis: Plan: Continue intravenous vancomycin, cefepime, Flagyl. Day 4. Continue parenteral steroid therapy. Serial chest x-ray every 2 days. Improving (4) Hypokalemia: Plan: Corrected. Potassium mL elixir ordered via PEG tube. Serial labs (5) Microcephaly: Plan: Congenital. Supportive care (6) Seizure disorder: Plan: Stable. Continue current medical (7) Esophageal dyskinesia: Plan: PEG tube feeding dependent (8) Hypernatremia: Plan: Hyperosmolar hyponatremia due to intravascular volume depletion from Lasix, which has been discontinued. Hypotonic IV fluids are being administered. Serial labs. Plan He is now DNR/DNI status. Hopeful eventual return to personal [place] [facility] early next week Admission and Anticipated Discharge Date Admission Date: August 07, 2023 Subjective No significant change. He is stable. Sodium remains elevated but is no higher and should now start to decrease. Will repeat chest x-ray again tomorrow. Oxygen requirements are slowly decreasing. Mild hypokalemia has been corrected. He remains on broad-spectrum antibiotic coverage. Review of Systems 2 Review of Systems: The patient is nonverbal with baseline cognitive dysfunction and cannot answer any questions regarding review of systems Physical Exam 2 Physical Exam: General-alert , nonverbal. No distress. No fever HEENT-microcephaly noted. Pupils equal and reactive to light, extraocular muscles intact Neck-no lymphadenopathy or thyromegaly, trachea midline Chest-bilateral rhonchi. No wheezing Cardiac-regular rate and rhythm, normal S1 and S2 Abdomen-normal bowel sounds, no hepatosplenomegaly Extremities-no edema Neuro-no focal deficits. Awake but nonverbal Psych-unable to assess Results & Data Results & Data Vital Signs (Past 12 Hours) Vital Signs Temp Pulse Pulse Resp BP Pulse Ox O2 Del Method 12/01/23 15:34 37 C 08/11/23 15:12 91 H 08/11/23 14:36 37.8 C H 93 H 18 136/61 91 Nasal Cannula 08/11/23 13:21 37.0 C 08/11/23 12:40 38.3 C H 97 H 18 152/64 H 92 Nasal Cannula 08/11/23 08:00 82 08/11/23 08:00 Nasal Cannula 08/11/23 07:30 36.7 C 83 18 159/68 H 92 Nasal Cannula O2 Flow Rate 08/11/23 15:34 08/11/23 15:12 08/11/23 14:36 4 08/11/23 13:21 08/11/23 12:40 4 08/11/23 08:00 08/11/23 08:00 4 08/11/23 07:30 4 Laboratory Results 08/11/23 06:02 08/11/23 06:02 PG Care Time/CCT Total # of Minutes Spent Total Time Spent with Patient: Total time spent is greater than 50% in coordination of care (as documented) at patient's floor/unit and/or counseling patient: Coding Level of Care Code 16084 SUB INP/OBS CARE 3/50MIN Diagnoses Acute respiratory failure with hypoxia J96.01 Acute diastolic CHF (congestive heart failure) I50.31 Aspiration pneumonitis J69.0 Hypokalemia E87.6 Microcephaly Q02 Seizure disorder G40.909 Esophageal dyskinesia K22.4 Hypernatremia E87.0
[2023-08-11] MEDS ORDERED: INSULIN HUMAN NPH SC SCH (18:00)
[2023-08-11] MEDS ORDERED: PHARMACY GLYCEMIC MGMT CONSULT PRN (19:57)
[2023-08-11] MEDS: SODIUM CHLORIDE 0.45 % 1,000 ML IV SCH (21:01)
[2023-08-11] MEDS: VANCOMYCIN HCL 1,000 MG in SODIUM CHLORIDE 0.9% 250 ML IV SCH (23:00)
[2023-08-12] MEDS: INSULIN ASPART PER UNIT CHARGE SC SCH ×6 (00:06→20:54)
[2023-08-12 01:36] LABS: BUN Creatinine Ratio 45.2 (10-20); Calcium 8.7 mg/dl (8.6-10.3); Creatinine Clr Calc Pharmacy 33.4 ml/min; Est GFR (African American) 44.7 ml/min; Est GFR (Non-African American) 38.6 ml/min; Potassium 3.6 mmol/L (3.5-5.1)
[2023-08-12] MEDS: methylPREDNISolone 40 MG in SYRINGE 0 ML IV SCH ×3 (03:34→20:18)
[2023-08-12] MEDS: CEFEPIME 2,000 MG in SYRINGE 0 ML IV SCH ×2 (04:41→17:40)
[2023-08-12] MEDS: VANCOMYCIN HCL 1,000 MG in SODIUM CHLORIDE 0.9% 250 ML IV SCH (05:45)
[2023-08-12] MEDS: metroNIDAZOLE 500 MG/100 ML BAG IV SCH ×3 (06:07→23:48)
[2023-08-12] MEDS: TUBE FEEDING WATER FLUSH PEG SCH ×9 (06:19→20:26)
[2023-08-12 07:08] LABS: Basophils # (auto) 0.04 K/uL (0.00-0.20); Basophils % (auto) 0.3 %; Hematocrit (blood only) 32.6 % (42.0-52.0); Hemoglobin 10.8 g/dl (14.0-18.0); Immature Granulocytes # (auto) 0.18 K/uL (0.01-0.20); Immature Granulocytes % (auto) 1.5 %; Lymphocytes # (auto) 0.76 K/uL (1.20-3.40); Lymphocytes % (auto) 6.5 %; Mean Corpuscular Hemoglobin 33.4 pg (25.0-34.0); Mean Corpuscular Hgb Conc 33.1 g/dL (32.0-36.0); Mean Corpuscular Volume 100.9 fL (80.0-100.0); Mean Platelet Volume 13.6 fL (9.4-12.4); Monocytes # (auto) 0.47 K/uL (0.11-0.59); Neutrophils # (auto) 10.29 K/uL (1.40-6.50); Neutrophils % (auto) 87.7 %; Nucleated RBC # (auto) 0.04 K/uL (0.00-0.12); Nucleated RBC % (auto) 0.3 %; Platelet Count 97 K/uL (130-400); RDW Coefficient of Variation 14.6 % (11.5-14.5); RDW Standard Deviation 54.8 fL (36.4-46.3); Red Blood Count 3.23 M/uL (4.70-6.10); White Blood Count 11.74 K/ul (4.8-10.8)
[2023-08-12 07:29] LABS: BUN Creatinine Ratio 45.3 (10-20); Calcium 8.4 mg/dl (8.6-10.3); Creatinine Clr Calc Pharmacy 34.4 ml/min; Est GFR (African American) 46.3 ml/min; Potassium 4.2 mmol/L (3.5-5.1)
[2023-08-12 07:43] LABS: Estimated Average Glucose 137 mg/dl; Hemoglobin A1C 6.4 % (4.5-5.6)
--- NOTE | 2023-08-12 07:51 | XRay Report ---
XR chest 1V portable CLINICAL HISTORY: Aspiration pneumonia. COMPARISON STUDY: Chest radiograph August 10, 2023. FINDINGS: There is no pneumothorax. No definite pleural effusion is present. Cardiomegaly is unchange d. Interstitial thickening and bilateral airspace opacities have slightly improved. IMPRESSION: Slight improvement in bilateral airspace opacities and interstitial thickening. The find ings could reflect pneumonia or pulmonary edema. Continued radiographic follow-up to ensure resolutio n is recommended. ACT 112: Negative or not required by law. Electronically signed by: Walter Benavidez M.D. 08/12/2023 7:50 AM
[2023-08-12] MEDS: DOCUSATE SODIUM SYRUP 100 MG/10 ML UDC PEG SCH (09:57)
[2023-08-12] MEDS: CHLORHEXIDINE GLUCONATE 0.12% 480 ML MT SCH ×2 (09:58→20:54)
[2023-08-12] MEDS: allopurinoL 100 MG TAB PEG SCH ×2 (09:58→20:26)
[2023-08-12] MEDS: cloZAPine 25 MG TAB PO SCH ×2 (09:59→20:26)
[2023-08-12] MEDS: ENOXAPARIN INJ 40 MG/0.4 ML SYR SQ SCH (09:59)
[2023-08-12] MEDS: FLUTICASONE PROPIONATE NA SPR 16 GM BTL SCH (10:00)
[2023-08-12] MEDS: POTASSIUM CHLORIDE 20 MEQ/15 ML UDC PEG SCH ×2 (10:00→20:26)
[2023-08-12] MEDS: LACTOBACILLUS ACIDOPHILUS 1 GM PACK PEG SCH ×2 (10:00→20:26)
[2023-08-12] MEDS: NUTREN LIQD 2.0 1,000 ML BAG PEG SCH ×3 (10:07→17:40)
[2023-08-12] MEDS: D5W AND 1/4NSS 1,000 ML IV SCH (10:21)
--- NOTE | 2023-08-12 10:27 | Pharmacy Report ---
Pharmacy PK ABX Note - Date of Service August 12, 2023 - Assessment and Plan Assessment 68 year old M receiving vancomycin/cefepime/metronidazole for treatment of possible pneumonia (aspiration?). Pertinent microbiologic data includes: Positive MRSA Nasal Swab, Blood cultures show no growth. Repeat blood cultures (08/08) NGTD. Stablizing MIKAL (SCr: 1.12 -> 1.31 -> 1.84 --> 2.09 --> 1.9-->1.72 mg/dL). Day #6 vancomycin Plan Vancomycin * Patient given 1000 mg IV yesterday at ~1100 and then 1gm q8h was erroneously scheduled last evening - received X 2 doses overnight into this AM. * Random vancomycin level drawn while vanc was infusing this AM, 45.4mcg/mL which is not interpretable however anticipate would be high. * No doses today- repeat random level tomorrow AM. Pharmacy will continue to follow and will adjust dose/frequency as necessary. Thank you. Pharmacy has transitioned to AUC monitoring for vancomycin. AUC/TAYLOR is the preferred PK/PD target and is associated with decreased risk of nephrotoxicity compared to traditional trough targets.
[2023-08-12] MEDS: SODIUM CHLORIDE 0.45 % 1,000 ML IV SCH (10:49)
[2023-08-12] MEDS: PANTOprazole 40 MG in SYRINGE 0 ML IV SCH (11:22)
--- NOTE | 2023-08-12 14:55 | Hospitalist Progress Note ---
Date of Service August 12, 2023 Assessment & Plan (1) Acute respiratory failure with hypoxia: Plan: Supplemental oxygen to maintain saturation greater than 90%. Treat suspected pneumonitis and CHF. Wean off as tolerated. Appears to be improving. Chest x- ray looks better and oxygen requirements are decreasing (2) Acute diastolic CHF (congestive heart failure): Plan: Cardiac echo report noted. Normal ejection fraction. Resolved with intravenous Lasix which was discontinued on August 09, due to rapid increase in creatinine levels. Serial chest x-rays are improving. Monitor intake and output. (3) Aspiration pneumonitis: Plan: Continue intravenous vancomycin, cefepime, Flagyl. Day 5. Continue parenteral steroid therapy. Serial chest x-ray every 2 days. Improving (4) Hypokalemia: Plan: Corrected. Potassium mL elixir ordered via PEG tube. Serial labs (5) Microcephaly: Plan: Congenital. Supportive care (6) Seizure disorder: Plan: Stable. Continue current medical (7) Esophageal dyskinesia: Plan: PEG tube feeding dependent (8) Hypernatremia: Plan: Hyperosmolar hyponatremia due to intravascular volume depletion from Lasix, which has been discontinued. Hypotonic IV fluids are being administered. Serial labs. Sodium level is now beginning to improve. Recheck serum osmolarity today, August 12 Plan He is now DNR/DNI status. Hopeful eventual return [facility] early next week Admission and Anticipated Discharge Date Admission Date: August 07, 2023 Subjective Oxygen requirements are decreasing. However, the addition of D5 W to IV fluids which is unavoidable since he is on 0.225 normal saline seems to aggravate his glucose levels. Low-dose basal insulin has been restarted. Continue sliding scale coverage. Will recheck serum osmolarity. Sodium is finally improving down to 160. The chest x-ray done today, August 12, looks better. He remains on vancomycin/cefepime/Flagyl, day 6. Creatinine improved down to 1.7. Review of Systems 2 Review of Systems: The patient is nonverbal with baseline cognitive dysfunction and cannot answer any questions regarding review of systems Physical Exam 2 Physical Exam: General-alert , nonverbal. No distress. No fever HEENT-microcephaly noted. Pupils equal and reactive to light, extraocular muscles intact Neck-no lymphadenopathy or thyromegaly, trachea midline Chest-bilateral rhonchi. No wheezing Cardiac-regular rate and rhythm, normal S1 and S2 Abdomen-normal bowel sounds, no hepatosplenomegaly Extremities-no edema Neuro-no focal deficits. Awake but nonverbal Psych-unable to assess Results & Data Results & Data Vital Signs (Past 12 Hours) Vital Signs Temp Pulse Pulse Resp BP Pulse Ox O2 Del Method 08/12/23 11:27 36.2 C L 70 18 125/68 92 Nasal Cannula 08/12/23 08:00 63 08/12/23 07:26 Nasal Cannula 08/12/23 07:25 36.6 C 65 16 164/73 H 96 Nasal Cannula 08/12/23 03:39 36.8 C 75 18 104/65 95 Nasal Cannula O2 Flow Rate 08/12/23 11:27 2 08/12/23 08:00 08/12/23 07:26 2 08/12/23 07:25 2 08/12/23 03:39 4 Laboratory Results 08/12/23 06:09 08/12/23 06:09 PG Care Time/CCT Total # of Minutes Spent Total Time Spent with Patient: Total time spent is greater than 50% in coordination of care (as documented) at patient's floor/unit and/or counseling patient: Coding Level of Care Code 02380 SUB INP/OBS CARE 3/50MIN Diagnoses Acute respiratory failure with hypoxia J96.01 Acute diastolic CHF (congestive heart failure) I50.31 Aspiration pneumonitis J69.0 Hypokalemia E87.6 Microcephaly Q02 Seizure disorder G40.909 Esophageal dyskinesia K22.4 Hypernatremia E87.0
[2023-08-12] MEDS: INSULIN HUMAN NPH SC SCH (15:30)
[2023-08-13] MEDS: D5W AND 1/4NSS 1,000 ML IV SCH ×2 (01:06→13:46)
[2023-08-13] MEDS: methylPREDNISolone 40 MG in SYRINGE 0 ML IV SCH ×3 (04:16→20:46)
[2023-08-13] MEDS: CEFEPIME 2,000 MG in SYRINGE 0 ML IV SCH ×2 (04:16→17:19)
[2023-08-13] MEDS: metroNIDAZOLE 500 MG/100 ML BAG IV SCH ×3 (06:05→23:52)
[2023-08-13] MEDS: TUBE FEEDING WATER FLUSH PEG SCH ×9 (06:08→20:46)
[2023-08-13 07:50] LABS: Hemoglobin 11.1 g/dl (14.0-18.0); Mean Corpuscular Hemoglobin 33.3 pg (25.0-34.0); Mean Corpuscular Hgb Conc 32.6 g/dL (32.0-36.0); Mean Corpuscular Volume 102.1 fL (80.0-100.0); Mean Platelet Volume 13.1 fL (9.4-12.4); Nucleated RBC # (auto) 0.04 K/uL (0.00-0.12); Nucleated RBC % (auto) 0.3 %; Platelet Count 93 K/uL (130-400); RDW Coefficient of Variation 14.8 % (11.5-14.5); RDW Standard Deviation 55.8 fL (36.4-46.3); Red Blood Count 3.33 M/uL (4.70-6.10)
[2023-08-13 07:57] LABS: BUN Creatinine Ratio 55.3 (10-20); Calcium 8.1 mg/dl (8.6-10.3); Est GFR (African American) 58.9 ml/min; Est GFR (Non-African American) 50.8 ml/min; Potassium 4.9 mmol/L (3.5-5.1)
[2023-08-13 08:15] LABS: Basophils # (auto) 0.06 K/uL (0.00-0.20); Basophils % (auto) 0.4 %; Immature Granulocytes # (auto) 0.19 K/uL (0.01-0.20); Immature Granulocytes % (auto) 1.3 %; Lymphocytes # (auto) 0.59 K/uL (1.20-3.40); Lymphocytes % (auto) 4.1 %; Monocytes % (auto) 2.1 %; Neutrophils # (auto) 13.16 K/uL (1.40-6.50); Neutrophils % (auto) 92.1 %
[2023-08-13] MEDS: POLYETHYLENE (MIRALAX) 17 GM PACK PEG SCH (10:27)
[2023-08-13] MEDS: INSULIN ASPART PER UNIT CHARGE SC SCH ×4 (10:49→21:07)
[2023-08-13] MEDS: INSULIN HUMAN NPH SC SCH ×2 (10:50→18:19)
[2023-08-13] MEDS: CHLORHEXIDINE GLUCONATE 0.12% 480 ML MT SCH ×2 (10:51→20:48)
[2023-08-13] MEDS: allopurinoL 100 MG TAB PEG SCH ×2 (10:51→20:47)
[2023-08-13] MEDS: ENOXAPARIN INJ 40 MG/0.4 ML SYR SQ SCH (10:52)
[2023-08-13] MEDS: cloZAPine 25 MG TAB PO SCH ×2 (10:52→20:48)
[2023-08-13] MEDS: DOCUSATE SODIUM SYRUP 100 MG/10 ML UDC PEG SCH (10:52)
[2023-08-13] MEDS: FLUTICASONE PROPIONATE NA SPR 16 GM BTL SCH (10:53)
[2023-08-13] MEDS: LACTOBACILLUS ACIDOPHILUS 1 GM PACK PEG SCH ×2 (10:53→20:47)
[2023-08-13] MEDS: NUTREN LIQD 2.0 1,000 ML BAG PEG SCH ×3 (10:55→18:09)
[2023-08-13] MEDS: POTASSIUM CHLORIDE 20 MEQ/15 ML UDC PEG SCH (10:56)
--- NOTE | 2023-08-13 11:28 | Pharmacy Report ---
Pharmacy PK ABX Note - Date of Service August 13, 2023 - Assessment and Plan Assessment 68 year old M receiving vancomycin/cefepime/metronidazole for treatment of possible pneumonia (aspiration?). Pertinent microbiologic data includes: Positive MRSA Nasal Swab, Blood cultures show no growth. Repeat blood cultures (08/08) NGTD. Stablizing MIKAL (SCr: 1.12 -> 1.31 -> 1.84 --> 2.09 --> 1.9-->1.72 -->1.41 mg/dL). Day #7 vancomycin Plan Vancomycin * No additional doses of vancomycin administered yesterday (received 1gm ~0000 12/2 and 0600 and then held) * Repeat random level this AM, 21.1mcg/mL which indicates clearance. * Vancomycin 1gm IV X 1 this afternoon. Random level tomorrow AM- may be able to place on a scheduled regimen if vancomycin to be continued. Pharmacy will continue to follow and will adjust dose/frequency as necessary. Thank you. Pharmacy has transitioned to AUC monitoring for vancomycin. AUC/TAYLOR is the preferred PK/PD target and is associated with decreased risk of nephrotoxicity compared to traditional trough targets.
[2023-08-13] MEDS ORDERED: VANCOMYCIN HCL 1,000 MG in SODIUM CHLORIDE 0.9% 250 ML IV ONE (12:00)
[2023-08-13] MEDS: PANTOprazole 40 MG in SYRINGE 0 ML IV SCH (14:12)
--- NOTE | 2023-08-13 15:00 | Hospitalist Progress Note ---
Date of Service August 13, 2023 Assessment & Plan (1) Acute respiratory failure with hypoxia: Plan: Resolved. He is now on room air. (2) Acute diastolic CHF (congestive heart failure): Plan: Cardiac echo report noted. Normal ejection fraction. Resolved with intravenous Lasix which was discontinued on August 09, due to rapid increase in creatinine levels. Serial chest x-rays are improving. Monitor intake and output. (3) Aspiration pneumonitis: Plan: Continue intravenous vancomycin, cefepime, Flagyl. Day 6. Continue parenteral steroid therapy. Serial chest x-ray every 2 days. Improving (4) Hypokalemia: Plan: Corrected. Potassium elixir discontinued today, August 13 (5) Microcephaly: Plan: Congenital. Supportive care (6) Seizure disorder: Plan: Stable. Continue current medical (7) Esophageal dyskinesia: Plan: PEG tube feeding dependent (8) Hypernatremia: Plan: Hyperosmolar hyponatremia due to intravascular volume depletion from Lasix, which has been discontinued. Hypotonic IV fluids are being administered. Serial labs. Sodium level is now beginning to improve. Plan He is now DNR/DNI status. Hopeful eventual return to personal group home tomorrow, August 14 Admission and Anticipated Discharge Date Admission Date: August 07, 2023 Subjective Improved. He is now on room air. Sodium has improved to 154. Potassium corrected to 4.9. Creatinine is down to 1.4. Will repeat chest x-ray again tomorrow, August 14. Oral potassium supplementation has been discontinued. Hopefully he can return to the personal-group home on oral antibiotics tomorrow, August 14 Review of Systems 2 Review of Systems: The patient is nonverbal with baseline cognitive dysfunction and cannot answer any questions regarding review of systems Physical Exam 2 Physical Exam: General-alert , nonverbal. No distress. No fever HEENT-microcephaly noted. Pupils equal and reactive to light, extraocular muscles intact Neck-no lymphadenopathy or thyromegaly, trachea midline Chest-bilateral rhonchi. No wheezing Cardiac-regular rate and rhythm, normal S1 and S2 Abdomen-normal bowel sounds, no hepatosplenomegaly Extremities-no edema Neuro-no focal deficits. Awake but nonverbal Psych-unable to assess Results & Data Results & Data Vital Signs (Past 12 Hours) Vital Signs Temp Pulse Pulse Resp BP Pulse Ox O2 Del Method 08/13/23 11:19 67 20 93 Room Air 08/13/23 11:15 36.6 C 64 20 124/65 94 Nasal Cannula 08/13/23 08:02 36.6 C 65 17 146/73 H 94 Nasal Cannula 08/13/23 07:22 65 08/13/23 03:17 36.2 C L 69 18 132/72 95 Nasal Cannula O2 Flow Rate 08/13/23 11:19 08/13/23 11:15 2 08/13/23 08:02 2 08/13/23 07:22 08/13/23 03:17 2 Laboratory Results 08/13/23 07:12 08/13/23 07:12 PG Care Time/CCT Total # of Minutes Spent Total Time Spent with Patient: Total time spent is greater than 50% in coordination of care (as documented) at patient's floor/unit and/or counseling patient: Coding Level of Care Code 79813 SUB INP/OBS CARE 3/50MIN Diagnoses Acute respiratory failure with hypoxia J96.01 Acute diastolic CHF (congestive heart failure) I50.31 Aspiration pneumonitis J69.0 Hypokalemia E87.6 Microcephaly Q02 Seizure disorder G40.909 Esophageal dyskinesia K22.4 Hypernatremia E87.0
[2023-08-14] MEDS: CEFEPIME 2,000 MG in SYRINGE 0 ML IV SCH (04:23)
[2023-08-14] MEDS: methylPREDNISolone 40 MG in SYRINGE 0 ML IV SCH ×2 (04:23→11:42)
[2023-08-14] MEDS: D5W AND 1/4NSS 1,000 ML IV SCH ×2 (05:56→21:13)
[2023-08-14] MEDS: TUBE FEEDING WATER FLUSH PEG SCH ×9 (06:05→20:51)
[2023-08-14 07:25] LABS: Basophils # (auto) 0.02 K/uL (0.00-0.20); Basophils % (auto) 0.2 %; Hematocrit (blood only) 31.3 % (42.0-52.0); Hemoglobin 10.3 g/dl (14.0-18.0); Lymphocytes # (auto) 0.48 K/uL (1.20-3.40); Lymphocytes % (auto) 4.7 %; Mean Corpuscular Hemoglobin 33.4 pg (25.0-34.0); Mean Corpuscular Hgb Conc 32.9 g/dL (32.0-36.0); Mean Corpuscular Volume 101.6 fL (80.0-100.0); Mean Platelet Volume 13.6 fL (9.4-12.4); Monocytes # (auto) 0.22 K/uL (0.11-0.59); Monocytes % (auto) 2.2 %; Neutrophils # (auto) 9.32 K/uL (1.40-6.50); Neutrophils % (auto) 91.9 %; Nucleated RBC # (auto) 0.02 K/uL (0.00-0.12); Nucleated RBC % (auto) 0.2 %; Platelet Count 94 K/uL (130-400); Platelet Estimate Decreased (Normal); RDW Coefficient of Variation 14.7 % (11.5-14.5); RDW Standard Deviation 54.8 fL (36.4-46.3); Red Blood Count 3.08 M/uL (4.70-6.10); White Blood Count 10.14 K/ul (4.8-10.8)
[2023-08-14 07:27] LABS: BUN Creatinine Ratio 56.2 (10-20); Creatinine Clr Calc Pharmacy 47.2 ml/min; Est GFR (Non-African American) 52.6 ml/min; Potassium 4.9 mmol/L (3.5-5.1)
--- NOTE | 2023-08-14 08:15 | XRay Report ---
XR chest 1V portable CLINICAL HISTORY: pneumonia, resp failure TECHNIQUE: Single frontal radiograph of the chest was obtained. Comparison: Comparison is made to chest radiograph 08/12/2023 FINDINGS: No lines and tubes are seen. Cardiomegaly is noted. Multifocal airspace opacities are seen. No eviden ce of pleural effusion or pneumothorax. IMPRESSION: No significant change in multifocal airspace opacities. ACT 112: Negative or not required by law. Electronically signed by: Dany George M.D. 08/14/2023 8:13 AM
[2023-08-14] MEDS: DOCUSATE SODIUM SYRUP 100 MG/10 ML UDC PEG SCH (08:58)
[2023-08-14] MEDS: INSULIN HUMAN NPH SC SCH (09:17)
[2023-08-14] MEDS: CHLORHEXIDINE GLUCONATE 0.12% 480 ML MT SCH ×2 (09:18→20:51)
[2023-08-14] MEDS: allopurinoL 100 MG TAB PEG SCH ×2 (09:18→20:51)
[2023-08-14] MEDS: LACTOBACILLUS ACIDOPHILUS 1 GM PACK PEG SCH ×2 (09:18→20:54)
[2023-08-14] MEDS: cloZAPine 25 MG TAB PO SCH ×2 (09:18→20:53)
[2023-08-14] MEDS: FLUTICASONE PROPIONATE NA SPR 16 GM BTL SCH (09:18)
[2023-08-14] MEDS: ENOXAPARIN INJ 40 MG/0.4 ML SYR SQ SCH (09:19)
[2023-08-14] MEDS: INSULIN ASPART PER UNIT CHARGE SC SCH ×4 (09:36→21:13)
[2023-08-14] MEDS ORDERED: VANCOMYCIN HCL 1,000 MG in SODIUM CHLORIDE 0.9% 250 ML IV SCH (10:00)
[2023-08-14] MEDS: PANTOprazole 40 MG in SYRINGE 0 ML IV SCH (10:37)
--- NOTE | 2023-08-14 15:21 | Hospitalist Progress Note ---
Date of Service August 14, 2023 Assessment & Plan (1) Acute respiratory failure with hypoxia: Plan: Resolved. He is now on room air. (2) Acute diastolic CHF (congestive heart failure): Plan: Cardiac echo report noted. Normal ejection fraction. Resolved with intravenous Lasix which was discontinued on August 09, due to rapid increase in creatinine levels. Serial chest x-rays have improved. Monitor intake and output. (3) Aspiration pneumonitis: Plan: Treated with intravenous vancomycin, cefepime, Flagyl for 7 days. Antibiotics discontinued today, August 14. He also received parenteral steroid therapy which has been discontinued. Chest x-ray done today, August 14, looks much better (4) Hypokalemia: Plan: Corrected. Potassium elixir discontinued on August 13 (5) Microcephaly: Plan: Congenital. Supportive care (6) Seizure disorder: Plan: Stable. Continue current medical (7) Esophageal dyskinesia: Plan: PEG tube feeding dependent (8) Hypernatremia: Plan: Hyperosmolar hyponatremia due to intravascular volume depletion from Lasix, which has been discontinued. Hypotonic IV fluids were being administered and have been discontinued serial labs. Sodium level is now down to 148. Plan He is now DNR/DNI status. Hopeful eventual return to [facility] yet this week. OT and PT assessments requested Admission and Anticipated Discharge Date Admission Date: August 07, 2023 Subjective Stable overall. Branch [employer]er states that he has not ambulating which she normally does at the [facility]. OT and PT assessments requested. Intravenous antibiotics have been discontinued. He has received at least 1 week of intravenous therapy. Potassium remains stable at 4.9. Sodium continues to improve down to 148. Chest x-ray done today, August 14, looks better. He is now on room air. Glucose acceptable at 184. He is on NPH 10 units every 12 hours. He continues to receive tube feedings per PEG tube. Review of Systems 2 Review of Systems: The patient is nonverbal with baseline cognitive dysfunction and cannot answer any questions regarding review of systems Physical Exam 2 Physical Exam: General-somnolent at the time of my exam. Nonverbal at baseline. No distress. No fever HEENT-microcephaly noted. Pupils equal and reactive to light, extraocular muscles intact Neck-no lymphadenopathy or thyromegaly, trachea midline Chest-bilateral rhonchi. No wheezing Cardiac-regular rate and rhythm, normal S1 and S2 Abdomen-normal bowel sounds, no hepatosplenomegaly Extremities-no edema Neuro-no focal deficits. Awake but nonverbal Psych-unable to assess Results & Data Results & Data Vital Signs (Past 12 Hours) Vital Signs Temp Pulse Pulse Resp BP Pulse Ox O2 Del Method 08/14/23 13:56 36.3 C L 76 16 127/67 92 Room Air 08/14/23 08:54 36.3 C L 58 L 18 153/71 H 92 Room Air 08/14/23 06:00 57 L 08/14/23 04:15 36.3 C L 56 L 18 125/68 93 Room Air Laboratory Results 08/14/23 05:50 08/14/23 05:50 PG Care Time/CCT Total # of Minutes Spent Total Time Spent with Patient: Total time spent is greater than 50% in coordination of care (as documented) at patient's floor/unit and/or counseling patient: Coding Level of Care Code 82945 SUB INP/OBS CARE 3/50MIN Diagnoses Acute respiratory failure with hypoxia J96.01 Acute diastolic CHF (congestive heart failure) I50.31 Aspiration pneumonitis J69.0 Hypokalemia E87.6 Microcephaly Q02 Seizure disorder G40.909 Esophageal dyskinesia K22.4 Hypernatremia E87.0
[2023-08-14] MEDS ORDERED: Nursing to Pharmacy Communication SCH (21:45)
[2023-08-15 06:52] LABS: Basophils # (auto) 0.03 K/uL (0.00-0.20); Basophils % (auto) 0.3 %; Eosinophils # (auto) 0.02 K/uL (0.00-0.50); Eosinophils % (auto) 0.2 %; Hematocrit (blood only) 30.9 % (42.0-52.0); Hemoglobin 10.3 g/dl (14.0-18.0); Immature Granulocytes # (auto) 0.12 K/uL (0.01-0.20); Immature Granulocytes % (auto) 1.2 %; Lymphocytes # (auto) 0.87 K/uL (1.20-3.40); Lymphocytes % (auto) 8.7 %; Mean Corpuscular Hemoglobin 33.6 pg (25.0-34.0); Mean Corpuscular Hgb Conc 33.3 g/dL (32.0-36.0); Mean Corpuscular Volume 100.7 fL (80.0-100.0); Mean Platelet Volume 13.9 fL (9.4-12.4); Monocytes # (auto) 0.35 K/uL (0.11-0.59); Monocytes % (auto) 3.5 %; Neutrophils # (auto) 8.63 K/uL (1.40-6.50); Neutrophils % (auto) 86.1 %; Platelet Count 94 K/uL (130-400); RDW Coefficient of Variation 14.6 % (11.5-14.5); RDW Standard Deviation 53.7 fL (36.4-46.3); Red Blood Count 3.07 M/uL (4.70-6.10); White Blood Count 10.02 K/ul (4.8-10.8)
[2023-08-15 07:14] LABS: BUN Creatinine Ratio 62.3 (10-20); Calcium 7.7 mg/dl (8.6-10.3); Creatinine Clr Calc Pharmacy 57.7 ml/min; Est GFR (African American) 76.2 ml/min; Est GFR (Non-African American) 65.7 ml/min; Potassium 4.3 mmol/L (3.5-5.1)
[2023-08-15] MEDS: TUBE FEEDING WATER FLUSH PEG SCH ×9 (07:53→20:35)
[2023-08-15] MEDS: LANSOPRAZOLE 30 MG SOLTAB PEG SCH (09:03)
[2023-08-15] MEDS: cloZAPine 25 MG TAB PO SCH ×2 (09:03→20:36)
[2023-08-15] MEDS: LACTOBACILLUS ACIDOPHILUS 1 GM PACK PEG SCH ×2 (09:04→20:37)
[2023-08-15] MEDS: allopurinoL 100 MG TAB PEG SCH ×2 (09:04→20:36)
[2023-08-15] MEDS: CHLORHEXIDINE GLUCONATE 0.12% 480 ML MT SCH ×2 (09:09→20:37)
[2023-08-15] MEDS: D5W AND 1/4NSS 1,000 ML IV SCH (10:37)
[2023-08-15] MEDS: POLYETHYLENE (MIRALAX) 17 GM PACK PEG SCH (10:38)
[2023-08-15] MEDS: ENOXAPARIN INJ 40 MG/0.4 ML SYR SQ SCH (10:39)
[2023-08-15] MEDS: FLUTICASONE PROPIONATE NA SPR 16 GM BTL SCH (10:39)
[2023-08-15] MEDS: DOCUSATE SODIUM SYRUP 100 MG/10 ML UDC PEG SCH (10:41)
[2023-08-15] MEDS: INSULIN ASPART PER UNIT CHARGE SC SCH ×4 (10:46→22:52)
--- NOTE | 2023-08-15 17:57 | Hospitalist Progress Note ---
Date of Service August 15, 2023 Assessment & Plan (1) Acute respiratory failure with hypoxia: Plan: Resolved. He is now on room air. (2) Acute diastolic CHF (congestive heart failure): Plan: Cardiac echo report noted. Normal ejection fraction. Resolved with intravenous Lasix which was discontinued on August 09, due to rapid increase in creatinine levels. Serial chest x-rays have improved. Monitor intake and output. (3) Aspiration pneumonitis: Plan: Treated with intravenous vancomycin, cefepime, Flagyl for 7 days. Antibiotics discontinued August 14. He also received parenteral steroid therapy which has been discontinued. Chest x-ray done today, August 14, looks much better (4) Hypokalemia: Plan: Corrected. Potassium elixir discontinued on August 13 (5) Microcephaly: Plan: Congenital. Supportive care (6) Seizure disorder: Plan: Stable. Continue current medical (7) Esophageal dyskinesia: Plan: PEG tube feeding dependent (8) Hypernatremia: Plan: Hyperosmolar hyponatremia due to intravascular volume depletion from Lasix, which has been discontinued. Hypotonic IV fluids were being administered and have been discontinued serial labs. Sodium level is now down to 148. Plan He is now DNR/DNI status. Hopeful eventual return to personal [facility] yet this week. OT and PT assessments requested Admission and Anticipated Discharge Date Admission Date: August 07, 2023 Subjective No acute event, pending placement, patient ready to be discharged, discussed with the case folder and caregiver Review of Systems Review of Systems: The patient is nonverbal with baseline cognitive dysfunction and cannot answer any questions regarding review of systems Physical Exam Physical Exam: General-somnolent at the time of my exam. Nonverbal at baseline. No distress. No fever HEENT-microcephaly noted. Pupils equal and reactive to light, extraocular muscles intact Neck-no lymphadenopathy or thyromegaly, trachea midline Chest-bilateral rhonchi. No wheezing Cardiac-regular rate and rhythm, normal S1 and S2 Abdomen-normal bowel sounds, no hepatosplenomegaly Extremities-no edema Neuro-no focal deficits. Awake but nonverbal Psych-unable to assess Constitutional: WD/WN, vitals as above Eyes: PERRL, conjunctivae normal, anicteric sclerae Cardiovascular: RRR, no murmur, no edema Gastrointestinal (Abdomen): normal bowel sounds, soft, nontender, no hepatosplenomegaly Skin: no rashes, warm and dry Results & Data Results & Data Vital Signs (Past 12 Hours) Vital Signs Temp Pulse Pulse Resp BP Pulse Ox O2 Del Method 08/15/23 15:10 36.9 C 67 18 127/66 95 Room Air 08/15/23 14:05 64 08/15/23 12:01 61 18 111/60 97 Room Air 08/15/23 07:56 Room Air 08/15/23 07:34 36.5 C 51 L 18 122/73 95 Room Air 08/15/23 06:00 53 L PG Care Time/CCT Total # of Minutes Spent Total Time Spent with Patient: Total time spent is greater than 50% in coordination of care (as documented) at patient's floor/unit and/or counseling patient: Coding Level of Care Code 18647 SUB INP/OBS CARE 2/35MIN Diagnoses Acute respiratory failure with hypoxia J96.01 Acute diastolic CHF (congestive heart failure) I50.31 Aspiration pneumonitis J69.0 Hypokalemia E87.6 Microcephaly Q02 Seizure disorder G40.909 Esophageal dyskinesia K22.4 Hypernatremia E87.0
[2023-08-16] MEDS: TUBE FEEDING WATER FLUSH PEG SCH ×8 (06:16→16:40)
[2023-08-16 06:56] LABS: Basophils # (auto) 0.02 K/uL (0.00-0.20); Basophils % (auto) 0.2 %; Eosinophils # (auto) 0.14 K/uL (0.00-0.50); Eosinophils % (auto) 1.7 %; Hemoglobin 10.9 g/dl (14.0-18.0); Immature Granulocytes # (auto) 0.08 K/uL (0.01-0.20); Lymphocytes # (auto) 0.96 K/uL (1.20-3.40); Lymphocytes % (auto) 11.7 %; Mean Platelet Volume 13.6 fL (9.4-12.4); Monocytes # (auto) 0.32 K/uL (0.11-0.59); Monocytes % (auto) 3.9 %; Neutrophils # (auto) 6.66 K/uL (1.40-6.50); Neutrophils % (auto) 81.5 %; Platelet Count 114 K/uL (130-400); RDW Coefficient of Variation 14.6 % (11.5-14.5); RDW Standard Deviation 53.2 fL (36.4-46.3); White Blood Count 8.18 K/ul (4.8-10.8)
[2023-08-16 07:22] LABS: BUN Creatinine Ratio 60.4 (10-20); Calcium 7.8 mg/dl (8.6-10.3); Creatinine Clr Calc Pharmacy 68.5 ml/min; Est GFR (African American) 93.8 ml/min; Est GFR (Non-African American) 80.9 ml/min
[2023-08-16] MEDS: DOCUSATE SODIUM SYRUP 100 MG/10 ML UDC PEG SCH (08:37)
[2023-08-16] MEDS: cloZAPine 25 MG TAB PO SCH (08:37)
[2023-08-16] MEDS: LACTOBACILLUS ACIDOPHILUS 1 GM PACK PEG SCH (08:37)
[2023-08-16] MEDS: LANSOPRAZOLE 30 MG SOLTAB PEG SCH (08:37)
[2023-08-16] MEDS: ENOXAPARIN INJ 40 MG/0.4 ML SYR SQ SCH (08:38)
[2023-08-16] MEDS: FLUTICASONE PROPIONATE NA SPR 16 GM BTL SCH (08:38)
[2023-08-16] MEDS: allopurinoL 100 MG TAB PEG SCH (08:39)
[2023-08-16] MEDS: CHLORHEXIDINE GLUCONATE 0.12% 480 ML MT SCH (08:39)
[2023-08-16] MEDS: INSULIN ASPART PER UNIT CHARGE SC SCH ×2 (09:53→15:26)
[2023-08-16 10:42] VITALS: TEMP 97.9
[2023-08-16 15:46] VITALS: BP 114/61; PULSE 73; RESP 17; O2SAT 96
--- NOTE | 2023-08-16 19:12 | Discharge Summary ---
Date of Service August 16, 2023 Admission HPI Per Admitting Provider Marty is a 68 year old male w/ PmHx microcephaly, significant dysphagia requiring feedings/hydration/meds through peg tube, gout, myelodysplasia, seizure disorder coming in to the hospital for hypoxia found at his long-term. Patient is accompanied by one of the workers at his long-term, [place], who had been caring for him tonight. She states that around 10 past 12AM she had helped him to go to the bathroom. At the time he was lethargic and looking diaphoretic, he was also not able to stand up on his own or get around very easily. Pulse oximetry on the patient revealed a pulse ox level of 80% and a heart rate of 80. He also had a pulse ox saturation of 85% earlier in the day too. He has been more lethargic over the past few days per other caretakers. He has also had a cough over the past month or so. In the ER WBC 2.56, Na 130, K 3.3, Albumin 3.0. CXR with patchy opacities in the bilateral lung bases. He was given 40mg IV Lasix in the ER. Principal Diagnosis Hypoxic respiratory failure multiple factorial including CHF exacerbation diastolic type and possible aspiration pneumonia completed course of treatment with antibiotic patient discharged on Lasix need to check the BMP in 1 week, patient completed course of treatment with antibiotic Discharge Exam General-somnolent at the time of my exam. Nonverbal at baseline. No distress. No fever HEENT-microcephaly noted. Pupils equal and reactive to light, extraocular muscles intact Neck-no lymphadenopathy or thyromegaly, trachea midline Chest-bilateral rhonchi. No wheezing Cardiac-regular rate and rhythm, normal S1 and S2 Abdomen-normal bowel sounds, no hepatosplenomegaly Extremities-no edema Neuro-no focal deficits. Awake but nonverbal Psych-unable to assess Constitutional WD/WN, vitals as above Eyes PERRL, conjunctivae normal, anicteric sclerae Cardiovascular RRR, no murmur, no edema Gastrointestinal (Abdomen) normal bowel sounds, soft, nontender, no hepatosplenomegaly Skin no rashes, warm and dry Discharge Data Allergies Allergy/AdvReac Type Severity Reaction Status Date / Time glycopyrrolate Allergy Severe TONGUE Verified 05/22/23 13:40 SWELLING trazodone Allergy Severe SWELLING Verified 05/22/23 13:40 OF TONGUE & EXTREMITIES, DIFFICULTY BREATHING. lithium Allergy Intermediate EXCESSIVE Verified 05/22/23 13:40 DRINKING, DECREASED APPETITE & VERBALIZATIONS risperidone Allergy Intermediate POSSIBLE Verified 05/22/23 13:40 NEUROLEPTIC MALIGNANCY SYNDROME amoxicillin [From Augmentin] Allergy Mild Rash Verified 05/22/23 13:40 clavulanic acid Allergy Mild Rash Verified 05/22/23 13:40 [From Augmentin] Macrolide Antibiotics Allergy Mild RASH Verified 05/22/23 13:40 belladonna alkaloids Allergy Unknown Unknown Verified 05/22/23 13:40 clarithromycin Allergy Unknown Unknown Verified 05/22/23 13:40 metoclopramide Allergy Unknown PT TAKES Verified 05/22/23 13:40 AT HOME aripiprazole AdvReac Intermediate HYPERACTIVITY Verified 05/22/23 13:40 & INSOMNIA Consultations 08/07/23 02:41 ED Decision to Admit Stat Hospital Course (1) Acute respiratory failure with hypoxia: Resolved. He is now on room air. (2) Acute diastolic CHF (congestive heart failure): Cardiac echo report noted. Normal ejection fraction. Resolved with intravenous Lasix which was discontinued on August 09, due to rapid increase in creatinine levels. Serial chest x-rays have improved. Monitor intake and output. (3) Aspiration pneumonitis: Treated with intravenous vancomycin, cefepime, Flagyl for 7 days. Antibiotics discontinued August 14. He also received parenteral steroid therapy which has been discontinued. Chest x-ray done today, August 14, looks much better (4) Hypokalemia: Corrected. Potassium elixir discontinued on August 13 (5) Microcephaly: Congenital. Supportive care (6) Seizure disorder: Stable. Continue current medical (7) Esophageal dyskinesia: PEG tube feeding dependent (8) Hypernatremia: Hyperosmolar hyponatremia due to intravascular volume depletion from Lasix, which has been discontinued. Hypotonic IV fluids were being administered and have been discontinued serial labs. Sodium level is now down to 148. Plan He is now DNR/DNI status. Hopeful eventual return to personal skilled nursing yet this week. OT and PT assessments requested Total Time Total Time Spent Total Time Spent (In Minutes): 45 min Discharge Plan Discharge Items Patient Disposition: Transfer Care Home Fac Reason For Visit: HYPOXIA Discharge Diagnosis: community aquired pneumonia Activity: Resume your previous activity Bathing: No limitations Exercise/Sports: Gradually increase as tolerated Non-emergency contact: Primary Care Provider Call non-emergency contact if: you have any medication questions Follow-up/Referrals: Chema Hernandez III, MD [Primary Care Provider] - Diet: Other - See Diet Comment Diet Comment: the patient is on tube feeding , 250 cc free water 4-5 times a day the day Addtl Attending Provider Instructions: please repeat your CXR after 2 months Pending Studies at Discharge: No Stand-Alone Forms: My [facility] Skilled Items Patient informed of condition?: No DNR: Yes Discharge Level of Care: Skilled Communicable Disease: No Discharge Prognosis: Stable Lines: None Urinary Catheter: No Medications and DC Order Prescriptions: Continued Centrum Chewables 8 mg-400 mcg- 10 mcg tablet,chewable 1 tab PO DAILY Qty: 30 11RF Rx Instructions: via peg (DME) nebulizer accessories Kit See Rx Instructions .ROUTE .MEDSUPPLY Qty: 1 0RF Rx Instructions: NEBULIZER, FACE MASK, AND SUPPLIES DX: R05 clotrimazole-betamethasone 1-0.05 % cream 1 applic topical .COMPLEX PRN (Reason: rash) 14 Days Qty: 45 2RF Rx Instructions: 1 applic topical bid to rash around peg tube; PRN; clotrimazole 1 % cream See Rx Instructions topical .COMPLEX PRN (Reason: Rash) Qty: 45 11RF Rx Instructions: Apply to rash on legs 4 times per day PRN for rash (DME) diaper,brief,adult,disposable Misc See Dose Instructions .ROUTE .MEDSUPPLY Qty: 240 11RF Dose Instruction: As directed Rx Instructions: As directed adult LARGE 4-8 per day loperamide [Imodium A-D] 1 mg/7.5 mL liquid See Rx Instructions feeding tube DIRECTED PRN (Reason: Diarrhea) Qty: 450 1RF Rx Instructions: 4 tsp via PEG tube after 1st loose stool, then take 2 tsp after each subsequent loose stool. Max 8 tsp in 24hrs PRN food supplemt, lactose-reduced Liquid See Rx Instructions .ROUTE .COMPLEX Qty: 237 11RF Rx Instructions: BOOST VHC; 1 can (530 calories per can) TID; via syringe, PEG tube; Duration: Lifetime; clozapine [Clozaril] 25 mg tablet 125 mg Feeding Tube HS Rx Instructions: crush and dissolve in 5 cc's of water, administer via g-tube. clozapine 50 mg tablet 50 mg Feeding Tube QAM Rx Instructions: crush and dissolve in 5 cc's of water, administer via g-tube furosemide 10 mg/mL solution 10 mg feeding tube UD Qty: 60 5RF Rx Instructions: 10 mg PO PRN WEIGHT GAIN EQUAL OR GREATER THAN 3LBS IN 3 DAYS OR LESS; Crush and dissolve in 5 cc's of water, administer via g-tube. cyanocobalamin (vitamin B-12) [Vitamin B-12] 1,000 mcg tablet 1,000 mcg Feeding Tube DAILY Qty: 90 0RF Rx Instructions: crush and dissolve in 5 cc's of water, administer via g-tube Acidophilus Capsule 175 mg Feeding Tube BID Qty: 30 6RF Rx Instructions: Crush and dissolve in 5ml of water and administer via g tube Children Multivitamin Tablet,Chewable 1 tab PO DAILY Qty: 90 3RF Rx Instructions: Crush and dissolve in 5mL water, administer via feeding tube for supplement bisacodyl 10 mg suppository 10 mg AZ ONCE PRN (Reason: constipation) Qty: 12 0RF Rx Instructions: Insert one suppository rectally if no bowel movement for 5 days. nystatin 100,000 unit/gram powder 1 applic TOP BID PRN (Reason: skin irritation) Qty: 30 5RF Rx Instructions: Used for irritation surrounding gastrostomy/feeding tube opening. levalbuterol HCl 1.25 mg/3 mL solution for nebulization 1.25 mg INH Q4H PRN (Reason: shortness of breath or wheezing or cough) Qty: 75 0RF (DME) Wings Choice Plus Adult Briefs Misc See Rx Instructions .Route Qty: 216 5RF Rx Instructions: change 4-6 times daily prednisone 5 mg/mL concentrate 5 mg PO .COMPLEX Qty: 30 1RF Rx Instructions: take 40 mg x 3 days, 30 mg x 3 days, 20 mg x 3 days, 10 mg x 3 days, then stop docusate sodium 50 mg/5 mL liquid 100 mg feeding tube DAILY Qty: 1000 3RF allopurinol 100 mg tablet See Rx Instructions feeding tube .COMPLEX Qty: 60 5RF Rx Instructions: Give 1 tablet daily via feeding tube for one week, then increase to 1 tablet twice daily via feeding tube for gout; cetirizine 10 mg tablet 10 mg feeding tube DAILY Qty: 30 0RF Rx Instructions: crush and dissolve in 5 cc's of water, administer via g-tube polyethylene glycol 3350 [Miralax] 17 gram/dose powder See Rx Instructions PO .COMPLEX Qty: 510 11RF Rx Instructions: one cap full mixed with 8 oz of water every other day; for constipation, administered via feeding tube. Hold for loose stools Calmoseptine 0.44-20.6 % ointment 1 applic topical QID Qty: 113 11RF Rx Instructions: to peg tube site Boost 0.04 gram- 1 kcal/mL liquid 1 ea PO DAILY Rx Instructions: give 1 full can at 0800, 1300, 1800, followed by 275 mL flush via PEG (DME) ostomy supplies [Adapt Stoma Powder] Powder See Rx Instructions .ROUTE .MEDSUPPLY Qty: 28.3 0RF Rx Instructions: Apply topically 2x daily around peg tube lip protective (padimate o) stick 1 ea TOP UD (DME) sheep skin heel protectors See Rx Instructions .Route .MEDSUPPLY Qty: 1 5RF Rx Instructions: apply to each heel ibuprofen [Children's Ibuprofen] 100 mg/5 mL suspension 600 mg feeding tube Q8H 14 Days Qty: 1260 0RF ipratropium bromide 21 mcg (0.03 %) spray,non-aerosol 2 spray intranasal TID PRN (Reason: postnasal drip) Qty: 30 11RF Rx Instructions: administer into each nostril fluticasone propionate 50 mcg/actuation spray,suspension 2 spray intranasal DAILY Qty: 16 11RF Rx Instructions: administer into each nostril fluocinonide-emollient 0.05 % cream 1 applic TOP BID Qty: 60 5RF Neosporin (hpm-cyn-reuab) 3.5mg-400 unit- 5,000 unit/gram Ointment 1 applic TOPICAL BID PRN (Reason: cuts and scrapes) alum-mag hydroxide-simeth [Antacid Liquid] 200-200-20 mg/5 mL Suspension 30 ml Feeding Tube BID PRN (Reason: upset stomach/vomiting) Robitussin Cough-Chest Ovi DM 5-100 mg/5 mL Liquid 5 ml Feeding Tube Q6H PRN (Reason: cough/congestion) chlorhexidine gluconate [Peridex] 0.12 % Mouthwash 15 ml BUCCAL BID acetaminophen 160 mg/5 mL (5 mL) Suspension 20 ml Feeding Tube Q4 MDD 3 GRAMS/24 HOURS PRN (Reason: fever/headache/minor aches [place]) Desitin Rapid Relief 13 % Cream 1 applic TOPICAL Q4 PRN (Reason: Skin Irritation) Discharge Orders: Discharge Order (Routine); Ordered 08/16/23 Ordered By: Garth Yancey Admission Data Admit Date/Time: 08/07/23 03:42 Attending Provider: Garth Yancey Admit Provider: Kimo Underwood Primary Care Provider: Chema Hernandez III Other Providers: German Chen; [facility] Other Interventions: Discharge Summary Assessment (RN) Last Done: 08/16/23 13:29 Coding Level of Care Code 37836 INP/OBS DISCH >30 MIN Diagnoses Acute respiratory failure with hypoxia J96.01 Acute diastolic CHF (congestive heart failure) I50.31 Aspiration pneumonitis J69.0 Hypokalemia E87.6 Microcephaly Q02 Seizure disorder G40.909 Esophageal dyskinesia K22.4 Hypernatremia E87.0
== END 2023-08-16 18:13 | DRG 177 ==
LOC: ED 01:02 → EDINP 03:42 → SUATTDRO 03:42 → 2N 04:49

== ENCOUNTER 2023-09-01 11:27 | Inpatient (IN) ==
--- NOTE | 2023-09-01 12:10 | Emergency Department Note ---
History of Present Illness General Chief complaint: Shortness of Breath/Dyspnea Time Seen by Provider: 09/01/23 11:41 History of Present Illness 68-year-old male presents from the [facility] reportedly is being treated for aspiration pneumonitis with cefepime and Flagyl. According to staff the patient had a deterioration in his condition. Patient is nonverbal does not provide any history. There is a caregiver at bedside that states he started with pneumonialike symptoms this week and was started on IV antibiotics. Home Medications Medication Instructions Recorded Confirmed Type acetaminophen 160 mg/5 mL (5 mL) 20 ml feeding tube Q4 PRN 10/09/18 08/07/23 History oral suspension fever/headache/minor aches her[place] aluminum-mag hydroxide-simethicone 30 ml feeding tube BID PRN upset 10/09/18 08/07/23 History 200 mg-200 mg-20 mg/5 mL oral susp stomach/vomiting (Antacid Liquid) chlorhexidine gluconate 0.12 % 15 ml buccal BID 10/09/18 08/07/23 History mouthwash (Peridex) dextromethorphan-guaifenesin 5 5 ml feeding tube Q6H PRN 10/09/18 08/07/23 History mg-100 mg/5 mL oral liquid cough/congestion (Robitussin Cough-Chest Congestion DM) neomycin-bacitracn Zn-polymyx 3.5 1 applic topical BID PRN cuts and 10/09/18 08/07/23 History mg-400 unit-5,000 unit/gram top scrapes oint (Neosporin (xab-rtx-mrtte)) zinc oxide 13 % topical cream 1 applic topical Q4 PRN Skin 10/09/18 08/07/23 History (Desitin Rapid Relief) Irritation lip protective (padimate o) 1 ea topical UD 08/13/19 08/07/23 History ostomy supplies (Adapt Stoma #28.3 grams 11/12/19 08/07/23 Rx Powder topical) lgxaghhx-qosjpnpt-iwfc 8 mg-folic 1 tab PO DAILY #30 tabs 06/22/20 08/07/23 Rx ac 400 mcg-vit K 10 mcg chew tablet (Centrum Chewables) nebulizer accessories #1 ea 07/30/20 08/07/23 Rx clotrimazole-betamethasone 1 1 applic topical .COMPLEX PRN rash 08/13/20 08/07/23 Rx %-0.05 % topical cream 2 weeks #45 grams menthol 0.44 %-zinc oxide 20.6 % 1 applic topical QID skin 09/02/20 08/07/23 Rx topical ointment (Calmoseptine) irritation #113 grams clotrimazole 1 % topical cream See Rx Instructions topical 04/28/21 08/07/23 Rx .COMPLEX PRN Rash #45 grams sheep skin heel protectors #1 ea 11/11/21 08/07/23 Rx diaper,brief,adult,disposable #240 ea 01/11/22 08/07/23 Rx loperamide 1 mg/7.5 mL oral liquid See Rx Instructions feeding tube 03/23/22 08/07/23 Rx (Imodium A-D) DIRECTED PRN Diarrhea #450 mL fluocinonide-emollient 0.05 % 1 applic topical BID #60 grams 05/18/22 08/07/23 Rx topical cream food supplemt, lactose-reduced See Rx Instructions .Route 09/16/22 08/07/23 Rx .COMPLEX #237 mL clozapine 25 mg tablet (Clozaril) 125 mg feeding tube HS 10/27/22 08/07/23 History clozapine 50 mg tablet 50 mg feeding tube QAM 10/27/22 08/07/23 History furosemide 10 mg/mL oral solution 10 mg feeding tube UD #60 mL 10/27/22 08/07/23 Rx Lactobacillus acidophilus 175 mg feeding tube BID #30 caps 11/01/22 08/07/23 Rx (Acidophilus capsule) cyanocobalamin (vitamin B-12) 1,000 mcg feeding tube DAILY #90 11/01/22 08/07/23 Rx 1,000 mcg tablet (Vitamin B-12) tabs pediatric multivitamin no.136 1 tab PO DAILY #90 tabs 11/08/22 08/07/23 Rx (Children Multivitamin chewable tablet) food supplemt, lactose-reduced 1 ea PO DAILY 11/16/22 08/07/23 History 0.04 gram-1 kcal/mL oral liquid (Boost) bisacodyl 10 mg rectal suppository 10 mg VA ONCE PRN constipation #12 12/01/22 08/07/23 Rx ea nystatin 100,000 unit/gram topical 1 applic topical BID PRN skin 01/04/23 08/07/23 Rx powder irritation #30 grams levalbuterol HCl 1.25 mg/3 mL 1.25 mg (3 mL) inhalation Q4H PRN 01/09/23 08/07/23 Rx solution for nebulization shortness of breath or wheezing or cough #75 mL diaper,brief,adult,disposable #216 ea 01/11/23 08/07/23 Rx (Wings Choice Plus Adult Briefs) prednisone 5 mg/mL oral concentrate 5 mg PO .COMPLEX #30 mL 02/08/23 08/07/23 Rx ibuprofen 100 mg/5 mL oral 600 mg (30 mL) feeding tube Q8H 14 02/23/23 08/07/23 Rx suspension (Children's Ibuprofen) days #1,260 mL docusate sodium 50 mg/5 mL oral 100 mg (10 mL) feeding tube DAILY 02/28/23 08/07/23 Rx liquid #1,000 mL allopurinol 100 mg tablet See Rx Instructions feeding tube 03/24/23 08/07/23 Rx .COMPLEX #60 tabs cetirizine 10 mg tablet 10 mg feeding tube DAILY #30 tabs 03/28/23 08/07/23 Rx polyethylene glycol 3350 17 See Rx Instructions PO .COMPLEX 04/04/23 08/07/23 Rx gram/dose oral powder (Miralax) constipation #510 grams fluticasone propionate 50 2 spray intranasal DAILY #16 grams 04/24/23 08/07/23 Rx mcg/actuation nasal spray,suspension ipratropium bromide 21 mcg (0.03 2 spray intranasal TID PRN 04/24/23 08/07/23 Rx %) nasal spray postnasal drip #30 mL Allergies Allergy/AdvReac Type Severity Reaction Status Date / Time glycopyrrolate Allergy Severe TONGUE Verified 05/22/23 13:40 SWELLING trazodone Allergy Severe SWELLING Verified 05/22/23 13:40 OF TONGUE & EXTREMITIES, DIFFICULTY BREATHING. lithium Allergy Intermediate EXCESSIVE Verified 05/22/23 13:40 DRINKING, DECREASED APPETITE & VERBALIZATIONS risperidone Allergy Intermediate POSSIBLE Verified 05/22/23 13:40 NEUROLEPTIC MALIGNANCY SYNDROME amoxicillin [From Augmentin] Allergy Mild Rash Verified 05/22/23 13:40 clavulanic acid Allergy Mild Rash Verified 05/22/23 13:40 [From Augmentin] Macrolide Antibiotics Allergy Mild RASH Verified 05/22/23 13:40 belladonna alkaloids Allergy Unknown Unknown Verified 05/22/23 13:40 clarithromycin Allergy Unknown Unknown Verified 05/22/23 13:40 metoclopramide Allergy Unknown PT TAKES Verified 05/22/23 13:40 AT HOME aripiprazole AdvReac Intermediate HYPERACTIVITY Verified 05/22/23 13:40 & INSOMNIA Past Med/Surg History Medical History Hypernatremia Hypokalemia Aspiration pneumonitis Acute diastolic CHF (congestive heart failure) Chronic rhinitis Seizure disorder (03/27/12) Esophageal dyskinesia Intellectual disability Uses feeding tube Surgical History History of craniotomy History of colonoscopy History of hernia repair History of esophagogastroduodenoscopy (EGD) History of cholecystectomy Family History Sister Microcephaly Intellectual disability Myelodysplasia (myelodysplastic syndrome) Father Cancer Myocardial infarction Other Family history non-contributory Denies family history of Ovarian cancer Prostate cancer Breast cancer Colorectal cancer Social History Smoking Status: Never smoker Second Hand Exposure: No; Do You Dip or Chew Tobacco: No; Hx Alcohol Use: No Hx Substance Use: No Preferred Language: [place] Communication Ability: Unable Visual Impairment: No Limitations Hearing Ability: Normal Environmental Services Lead Required: No Beliefs That Will Affect Care: None marital status: Single Current Living Situation: [place] Current Living Situation Comment: Lives at home with caregivers current occupational status: disabled Feels Safe at Home: Yes Childhood Exposure to Second-Hand Smoke: No Dental Care, Regularly: Yes Physical Activity Frequency: 1-2 Times per Week Seatbelt Use: always Sunscreen Use: No Assistive Devices: Other Review of Systems Unobtainable due to cognitive status Physical Exam Vital Signs Vital Signs - 24 hr 09/01/23 11:34 09/01/23 11:34 09/01/23 12:02 Temperature Source Oral Pulse Rate 76 85 Respiratory Rate 20 Blood Pressure 143/68 H Blood Pressure Mean 93 Pulse Oximetry 94 94 Oxygen Delivery Method Oxymask Nasal Cannula Oxygen Flow Rate 4 4 Sepsis Recent Fever Within 48 Hours No Sepsis New/Unexplained Change in Mental Status No Sepsis Action Taken by Nursing No Action Required 09/01/23 12:05 Temperature Source Pulse Rate Respiratory Rate Blood Pressure Blood Pressure Mean Pulse Oximetry 94 Oxygen Delivery Method Oxygen Flow Rate 4 Sepsis Recent Fever Within 48 Hours Sepsis New/Unexplained Change in Mental Status Sepsis Action Taken by Nursing GENERAL: Patient is awake, nonverbal, cachectic, ill-appearing EYES: The conjunctivae are clear. The pupils are round and reactive. EARS, NOSE, MOUTH AND THROAT: The nose is without any evidence of any deformity. Mucous membranes are moist. Tongue is midline. NECK: The neck is nontender and supple. RESPIRATORY: Rhonchi bilaterally CARDIOVASCULAR: Regular rate and rhythm noted there no murmurs rubs or gallops normal S1 normal S2. GASTROINTESTINAL: The abdomen is soft. Abdomen is nontender. G-tube is present left upper quadrant BACK: No midline tenderness or or step-off noted range of motion in flexion extension as well as rotation no signs of muscle spasm noted MUSCULOSKELETAL/EXTREMITIES: There is no evidence of gross deformity full range of motion is noted in the hips and shoulders. SKIN: There is no obvious evidence of any rash. There are no petechiae, pallor or cyanosis noted. Patient has edema to the right hand dorsum NEUROLOGIC: Patient is awake nonverbal Course Reevaluation(s) Reevaluation #1: Patient was started on IV fluids, patient is on 4 L nasal cannula of oxygen. Patient was given a suspension dose of Tamiflu 75 mg. Patient had been dosed with cefepime and Flagyl this morning Time: 13:39 Consultations Consultation #1: This case was discussed with Dr. Benitez from [facility] intensivists for admission Time: 13:39 Medical Decision Making Medical Records Attestation: I reviewed the patient's medical records. Home Medications Current Medication List: was personally reviewed by me Laboratory Data Attestation: I reviewed the patient's lab results. 09/01/23 11:42 09/01/23 11:42 Lab Results 09/01/23 09/01/23 09/01/23 Range/Units 11:42 11:44 12:46 WBC 5.89 (4.8-10.8) K/ul RBC 3.02 L (4.70-6.10) M/uL Hgb 10.1 L (14.0-18.0) g/dl Hct 29.8 L (42.0-52.0) % MCV 98.7 (80.0-100.0) fL MCH 33.4 (25.0-34.0) pg MCHC 33.9 (32.0-36.0) g/dL RDW Std Deviation 51.8 H (36.4-46.3) fL RDW Coeff of Isaac 14.4 (11.5-14.5) % Plt Count 117 L (130-400) K/uL MPV 12.9 H (9.4-12.4) fL Immature Gran % (Auto) 4.9 % Neut % (Auto) 73.1 % Lymph % (Auto) 7.3 % Throckmorton % (Auto) 13.9 % Eos % (Auto) 0.0 % Baso % (Auto) 0.8 % Neut # (Auto) 4.30 (1.40-6.50) K/uL Lymph # (Auto) 0.43 L (1.20-3.40) K/uL Throckmorton # (Auto) 0.82 H (0.11-0.59) K/uL Eos # (Auto) 0.00 (0.00-0.50) K/uL Baso # (Auto) 0.05 (0.00-0.20) K/uL Immature Gran # (Auto) 0.29 H (0.01-0.20) K/uL Absolute Nucleated RBC 0.02 (0.00-0.12) K/uL Nucleated RBC % (auto) 0.3 % PT 11.2 (9.0-12.0) Seconds INR 1.0 (0.9-1.1) APTT 27 (21-31) Seconds PTT Ratio 1.0 Sodium 138 (136-145) mmol/L Potassium 3.4 L (3.5-5.1) mmol/L Chloride 109 H (98-107) mmol/L Carbon Dioxide 19 L (21-32) mmol/L Anion Gap 10 (3-11) BUN 106 H (6-23) mg/dl Creatinine 1.65 H (0.6-1.4) mg/dl Est Cr Clr Drug Dosing Not Reportable Est GFR ( Amer) 48.7 ml/min Est GFR (Non-Af Amer) 42.0 ml/min BUN/Creatinine Ratio 64.2 H (10-20) Glucose 263 H (70-99(Fasting)) mg/dl Lactate 1.8 (0.4-2.0) mmol/L Calcium 8.1 L (8.6-10.3) mg/dl Total Bilirubin 0.3 (0.2-1.0) mg/dl AST 57 H (13-39) U/L ALT 74 H (7-52) U/L Alkaline Phosphatase 199 H (34-104) U/L Troponin I High Sens 42.4 H (0-20) pg/ml Total Protein 6.2 (6.0-8.3) gm/dl Albumin 2.5 L (3.4-5.0) gm/dl Globulin 3.7 (2.5-4.0) gm/dl Albumin/Globulin Ratio 0.7 L (0.9-2) SARS-CoV-2 (PCR) NEGATIVE (Negative) Influenza Type A (PCR) Positive A* (Neg) Influenza Type B (PCR) Negative (Neg) RSV (RT-PCR) Negative (Neg) Imaging Data Attestation: I personally reviewed and interpreted this imaging study as follows: My Impression: Chest x-ray interpreted by me bilateral infiltrates are present Radiologist's Impression: Chest X-Ray 09/01/23 11:41 XR chest 1V portable CLINICAL HISTORY: Chest pain, nonspecific TECHNIQUE: Single frontal radiograph of the chest was obtained. Comparison: Comparison is made to chest radiograph 08/14/2023 FINDINGS: No lines and tubes are seen. Cardiomegaly is noted. Multifocal airspace opacities are slightly increased from prior exam. No evidence of pleural effusion or pneumothorax. IMPRESSION: Slightly increased multifocal airspace opacities compatible with worsening pneumonia. ACT 112: Negative or not required by law. Electronically signed by: Dany George M.D. 09/01/2023 1:32 PM ECG Data Attestation: I personally reviewed and interpreted this ECG as follows: Additional Comments: EKG interpreted by me normal sinus rhythm rate of 78, left axis deviation, LVH, no obvious ST segment elevation or depression Telemetry was ordered by me, interpreted as normal sinus rhythm rate of 78 MDM Narrative Medical decision making differential diagnosis includes sepsis, pneumonia, urinary tract infection, CHF Plan is to check sepsis labs, chest x-ray I reviewed the notes from the [facility], patient has a history of CHF pneumonitis seizure disorder hyponatremia and is currently on Flagyl and cefepime I reviewed a progress note from August 16, 2023 Patient had received cefepime and Flagyl this morning. Patient was given a dose of Tamiflu in the emergency department Case was discussed with the [facility] hospitalist for admission patient will be admitted for sepsis, pneumonia, influenza, hypoxia Patient's had an elevated creatinine and BUN in the past and was given IV fluids. Patient was hemodynamically stable and not septic shock at the time of admission at 1340 Impression & Plan Pneumonia, Influenza A, Acute dehydration, Sepsis Discharge Plan Visit Data Chief Complaint: Shortness of Breath/Dyspnea ED Provider: Tyrese Leigh Discharge Problem: Pneumonia, Influenza A, Acute dehydration, Sepsis Patient Disposition: Admitted As Inpatient Forms Stand Alone Forms: My [facility] Prescriptions Prescriptions: No Action Centrum Chewables 8 mg-400 mcg- 10 mcg tablet,chewable 1 tab PO DAILY Qty: 30 11RF Rx Instructions: via peg (DME) nebulizer accessories Kit See Rx Instructions .ROUTE .MEDSUPPLY Qty: 1 0RF Rx Instructions: NEBULIZER, FACE MASK, AND SUPPLIES DX: R05 clotrimazole-betamethasone 1-0.05 % cream 1 applic topical .COMPLEX PRN (Reason: rash) 14 Days Qty: 45 2RF Rx Instructions: 1 applic topical bid to rash around peg tube; PRN; clotrimazole 1 % cream See Rx Instructions topical .COMPLEX PRN (Reason: Rash) Qty: 45 11RF Rx Instructions: Apply to rash on legs 4 times per day PRN for rash (DME) diaper,brief,adult,disposable Misc See Dose Instructions .ROUTE .MEDSUPPLY Qty: 240 11RF Dose Instruction: As directed Rx Instructions: As directed adult LARGE 4-8 per day loperamide [Imodium A-D] 1 mg/7.5 mL liquid See Rx Instructions feeding tube DIRECTED PRN (Reason: Diarrhea) Qty: 450 1RF Rx Instructions: 4 tsp via PEG tube after 1st loose stool, then take 2 tsp after each subsequent loose stool. Max 8 tsp in 24hrs PRN food supplemt, lactose-reduced Liquid See Rx Instructions .ROUTE .COMPLEX Qty: 237 11RF Rx Instructions: BOOST VHC; 1 can (530 calories per can) TID; via syringe, PEG tube; Duration: Lifetime; clozapine [Clozaril] 25 mg tablet 125 mg Feeding Tube HS Rx Instructions: crush and dissolve in 5 cc's of water, administer via g-tube. clozapine 50 mg tablet 50 mg Feeding Tube QAM Rx Instructions: crush and dissolve in 5 cc's of water, administer via g-tube furosemide 10 mg/mL solution 10 mg feeding tube UD Qty: 60 5RF Rx Instructions: 10 mg PO PRN WEIGHT GAIN EQUAL OR GREATER THAN 3LBS IN 3 DAYS OR LESS; Crush and dissolve in 5 cc's of water, administer via g-tube. cyanocobalamin (vitamin B-12) [Vitamin B-12] 1,000 mcg tablet 1,000 mcg Feeding Tube DAILY Qty: 90 0RF Rx Instructions: crush and dissolve in 5 cc's of water, administer via g-tube Acidophilus Capsule 175 mg Feeding Tube BID Qty: 30 6RF Rx Instructions: Crush and dissolve in 5ml of water and administer via g tube Children Multivitamin Tablet,Chewable 1 tab PO DAILY Qty: 90 3RF Rx Instructions: Crush and dissolve in 5mL water, administer via feeding tube for supplement bisacodyl 10 mg suppository 10 mg VA ONCE PRN (Reason: constipation) Qty: 12 0RF Rx Instructions: Insert one suppository rectally if no bowel movement for 5 days. nystatin 100,000 unit/gram powder 1 applic TOP BID PRN (Reason: skin irritation) Qty: 30 5RF Rx Instructions: Used for irritation surrounding gastrostomy/feeding tube opening. levalbuterol HCl 1.25 mg/3 mL solution for nebulization 1.25 mg INH Q4H PRN (Reason: shortness of breath or wheezing or cough) Qty: 75 0RF (DME) Wings Choice Plus Adult Briefs Misc See Rx Instructions .Route Qty: 216 5RF Rx Instructions: change 4-6 times daily prednisone 5 mg/mL concentrate 5 mg PO .COMPLEX Qty: 30 1RF Rx Instructions: take 40 mg x 3 days, 30 mg x 3 days, 20 mg x 3 days, 10 mg x 3 days, then stop docusate sodium 50 mg/5 mL liquid 100 mg feeding tube DAILY Qty: 1000 3RF allopurinol 100 mg tablet See Rx Instructions feeding tube .COMPLEX Qty: 60 5RF Rx Instructions: Give 1 tablet daily via feeding tube for one week, then increase to 1 tablet twice daily via feeding tube for gout; cetirizine 10 mg tablet 10 mg feeding tube DAILY Qty: 30 0RF Rx Instructions: crush and dissolve in 5 cc's of water, administer via g-tube polyethylene glycol 3350 [Miralax] 17 gram/dose powder See Rx Instructions PO .COMPLEX Qty: 510 11RF Rx Instructions: one cap full mixed with 8 oz of water every other day; for constipation, administered via feeding tube. Hold for loose stools Calmoseptine 0.44-20.6 % ointment 1 applic topical QID Qty: 113 11RF Rx Instructions: to peg tube site Boost 0.04 gram- 1 kcal/mL liquid 1 ea PO DAILY Rx Instructions: give 1 full can at 0800, 1300, 1800, followed by 275 mL flush via PEG (DME) ostomy supplies [Adapt Stoma Powder] Powder See Rx Instructions .ROUTE .MEDSUPPLY Qty: 28.3 0RF Rx Instructions: Apply topically 2x daily around peg tube lip protective (padimate o) stick 1 ea TOP UD (DME) sheep skin heel protectors See Rx Instructions .Route .MEDSUPPLY Qty: 1 5RF Rx Instructions: apply to each heel ibuprofen [Children's Ibuprofen] 100 mg/5 mL suspension 600 mg feeding tube Q8H 14 Days Qty: 1260 0RF ipratropium bromide 21 mcg (0.03 %) spray,non-aerosol 2 spray intranasal TID PRN (Reason: postnasal drip) Qty: 30 11RF Rx Instructions: administer into each nostril fluticasone propionate 50 mcg/actuation spray,suspension 2 spray intranasal DAILY Qty: 16 11RF Rx Instructions: administer into each nostril fluocinonide-emollient 0.05 % cream 1 applic TOP BID Qty: 60 5RF Neosporin (tui-bav-xykan) 3.5mg-400 unit- 5,000 unit/gram Ointment 1 applic TOPICAL BID PRN (Reason: cuts and scrapes) alum-mag hydroxide-simeth [Antacid Liquid] 200-200-20 mg/5 mL Suspension 30 ml Feeding Tube BID PRN (Reason: upset stomach/vomiting) Robitussin Cough-Chest Ovi DM 5-100 mg/5 mL Liquid 5 ml Feeding Tube Q6H PRN (Reason: cough/congestion) chlorhexidine gluconate [Peridex] 0.12 % Mouthwash 15 ml BUCCAL BID acetaminophen 160 mg/5 mL (5 mL) Suspension 20 ml Feeding Tube Q4 MDD 3 GRAMS/24 HOURS PRN (Reason: fever/headache/minor aches her[place]th) Desitin Rapid Relief 13 % Cream 1 applic TOPICAL Q4 PRN (Reason: Skin Irritation) Referrals Referrals: Chema Hernandez III, MD [Primary Care Provider] -
[2023-09-01 12:19] LABS: Basophils # (auto) 0.05 K/uL (0.00-0.20); Basophils % (auto) 0.8 %; Hematocrit (blood only) 29.8 % (42.0-52.0); Hemoglobin 10.1 g/dl (14.0-18.0); Immature Granulocytes # (auto) 0.29 K/uL (0.01-0.20); Immature Granulocytes % (auto) 4.9 %; Lymphocytes # (auto) 0.43 K/uL (1.20-3.40); Lymphocytes % (auto) 7.3 %; Mean Corpuscular Hemoglobin 33.4 pg (25.0-34.0); Mean Corpuscular Hgb Conc 33.9 g/dL (32.0-36.0); Mean Corpuscular Volume 98.7 fL (80.0-100.0); Mean Platelet Volume 12.9 fL (9.4-12.4); Monocytes # (auto) 0.82 K/uL (0.11-0.59); Monocytes % (auto) 13.9 %; Neutrophils % (auto) 73.1 %; Nucleated RBC # (auto) 0.02 K/uL (0.00-0.12); Nucleated RBC % (auto) 0.3 %; Platelet Count 117 K/uL (130-400); RDW Coefficient of Variation 14.4 % (11.5-14.5); RDW Standard Deviation 51.8 fL (36.4-46.3); Red Blood Count 3.02 M/uL (4.70-6.10); White Blood Count 5.89 K/ul (4.8-10.8)
[2023-09-01 12:25] LABS: Alanine Aminotransferase 74 U/L (7-52); Albumin Globulin Ratio 0.7 (0.9-2); Albumin Level 2.5 gm/dl (3.4-5.0); Alkaline Phosphatase 199 U/L (34-104); Anion Gap 10 (3-11); Aspartate Aminotransferase 57 U/L (13-39); BUN Creatinine Ratio 64.2 (10-20); Bilirubin,Total 0.3 mg/dl (0.2-1.0); Blood Urea Nitrogen 106 mg/dl (6-23); Calcium 8.1 mg/dl (8.6-10.3); Carbon Dioxide 19 mmol/L (21-32); Chloride 109 mmol/L (98-107); Est GFR (African American) 48.7 ml/min; Globulin 3.7 gm/dl (2.5-4.0); Glucose 263 mg/dl (70-99(Fasting)); Potassium 3.4 mmol/L (3.5-5.1); Sodium 138 mmol/L (136-145); Total Protein 6.2 gm/dl (6.0-8.3)
[2023-09-01 12:31] LABS: Troponin I High Sensitivity 42.4 pg/ml (0-20)
[2023-09-01 12:43] LABS: Partial Thromboplastin Time 27 Seconds (21-31); Prothrombin Time 11.2 Seconds (9.0-12.0)
[2023-09-01] MEDS ORDERED: SODIUM CHLORIDE 0.9% 1,000 ML IV ONE (12:44)
[2023-09-01 12:49] LABS: Influenza B virus by PCR Negative (Neg); RSV by PCR Negative (Neg); SARS CoV2 RNA(COVID-19) Ceph NEGATIVE (Negative)
[2023-09-01 12:52] LABS: Influenza A virus by PCR Positive (Neg)
--- NOTE | 2023-09-01 13:35 | XRay Report ---
XR chest 1V portable CLINICAL HISTORY: Chest pain, nonspecific TECHNIQUE: Single frontal radiograph of the chest was obtained. Comparison: Comparison is made to chest radiograph 08/14/2023 FINDINGS: No lines and tubes are seen. Cardiomegaly is noted. Multifocal airspace opacities are slightly increa sed from prior exam. No evidence of pleural effusion or pneumothorax. IMPRESSION: Slightly increased multifocal airspace opacities compatible with worsening pneumonia. ACT 112: Negative or not required by law. Electronically signed by: Dany George M.D. 09/01/2023 1:32 PM
--- NOTE | 2023-09-01 13:42 | History & Physical Report ---
Date of Service September 01, 2023 Assessment & Plan (1) Influenza A: Plan: Worsening SOB, cough, lethargy x 7 days; hypoxic at 83% on RA on 09/01 No leukocytosis; afebrile + Influenza on arrival Airborne, droplet isolation precautions in place No supplemental oxygen use at baseline SpO2 92% on 4L OxyMask at time of admission Patient started on Tamiflu 75 mg p.o. twice daily in the ED; continue while inpatient Procalcitonin ordered, pending Supplemental oxygen as needed to maintain SpO2 >94% Continue guaifenesin for cough Continue levalbuterol nebulizer q4h Acetaminophen 1000 mg IV q8h as needed for pain/fever A.m. CBC, BMP, mag (2) Pneumonia: Plan: CXR on arrival revealed increased multifocal airspace opacities compatible with worsening pneumonia Patient came in from [facility]; was started on cefepime 1000 mg IV daily on 09/01 and Flagyl 250 mg IV q8h on 08/31 Recent [facility] admission from 08/07 - 08/16 for acute respiratory failure and aspiration pneumonitis ?Patient was reportedly on Solu-Medrol 40 mg IV q8h starting 08/29 per review of chart; ?Adrenal insufficiency Will switch to prednisone 50mg GT daily Will switch to cefepime 1000mg daily --> 2000 mg IV q8h Switch from Flagyl 250mg IV q8h --> 500 mg IV q8h (3) Sepsis: Plan: Pulmonary source Lactate WNL at 1.8 Blood cultures ordered, pending (4) Uses feeding tube: Plan: Aspiration precautions Patient receives full nutrition through gastrostomy tube Nutren 2.0 Everything via peg tube; manage PEG tube q4h Tube feeding water flush 100 mL PEG daily @ 0900, 1400, 1900 Weight Guesser consulted (5) Congestive heart failure: Plan: Mildly elevated BNP at 141 (6) Myelodysplasia (myelodysplastic syndrome): Plan: Chronic; follows with hematology; he is around his baseline hemoglobin (7) Microcephaly: Plan: Chronic; noted (8) Seizure disorder: Plan: Continue clozapine through PEG tube (9) Gout: Plan: Continue allopurinol through PEG tube Plan Disposition: Admit to U telemetry DNR/DNI Aspiration precautions Everything through PEG tube (dietitian consulted) VTE PPx: Heparin 5000u SQ q12h History of Present Illness Chief Complaint: SOB/dyspnea Primary Care Provider: Chema Hernandez MD Marty is a 68yo male with PMH of microcephaly, nonverbal at baseline, chronic dysphagia, esophageal dyskinesia chronic feeding tube, chronic intellectual disability, absent right kidney, gout, dysphagia, seizure disorder, manicdepressive disorder, urinary incontinence, myelodysplasia, and CHF. He presented from [facility] for worsening SOB/dyspnea that started the weekend of 08/25 - 08/27. Patient is nonverbal and cannot provide a history. Patient's ui designer (Kyleigh; from [employer] [facility]) is present at the bedside and provides a history; she has been working with him for the past 4 years. He was previously being treated at [facility] for aspiration pneumonitis; receiving cefepime and 1000 mg IV daily and Flagyl 250 mg IV q8h. his cough worsened over the past week, and caretakers noticed that he was more lethargic and tired. They have been providing nebulizers 4 times daily, which have helped. Patient was reportedly down to 83% SpO2 on RA. He is not on oxygen supplementation at baseline. Influenza positive on arrival. Patient exhibits mild hypertension at 143/68 at time of admission; SpO2 94% on 4 LNC; vitals otherwise stable. ED course: Tamiflu 75 mg p.o. NSS 1000 mL IV ROS: Patient is nonverbal; the following is from patient's ui designer: She endorses worsening SOB, and urinary retention (bladder scanned; full; lance was placed) She denies fever, chills, nightsweats, abdominal pain, or N/V. Unsure of chest pain. No PMH of SC, DVT/PE, CVA, DM, or cancer DO NOT RESUSCITATE order on paper chart; signed on 02/14/[address] Dany De La Garza, DO Allergies Allergy/AdvReac Type Severity Reaction Status Date / Time glycopyrrolate Allergy Severe TONGUE Verified 05/22/23 13:40 SWELLING trazodone Allergy Severe SWELLING Verified 05/22/23 13:40 OF TONGUE & EXTREMITIES, DIFFICULTY BREATHING. lithium Allergy Intermediate EXCESSIVE Verified 05/22/23 13:40 DRINKING, DECREASED APPETITE & VERBALIZATIONS risperidone Allergy Intermediate POSSIBLE Verified 05/22/23 13:40 NEUROLEPTIC MALIGNANCY SYNDROME amoxicillin [From Augmentin] Allergy Mild Rash Verified 05/22/23 13:40 clavulanic acid Allergy Mild Rash Verified 05/22/23 13:40 [From Augmentin] Macrolide Antibiotics Allergy Mild RASH Verified 05/22/23 13:40 belladonna alkaloids Allergy Unknown Unknown Verified 05/22/23 13:40 clarithromycin Allergy Unknown Unknown Verified 05/22/23 13:40 metoclopramide Allergy Unknown PT TAKES Verified 05/22/23 13:40 AT HOME aripiprazole AdvReac Intermediate HYPERACTIVITY Verified 05/22/23 13:40 & INSOMNIA Home Medications Medication Instructions Recorded Confirmed Type aluminum-mag hydroxide-simethicone 30 ml feeding tube BID PRN upset 10/09/18 09/01/23 History 200 mg-200 mg-20 mg/5 mL oral susp stomach/vomiting (Antacid Liquid) chlorhexidine gluconate 0.12 % 15 ml buccal BID 10/09/18 09/01/23 History mouthwash (Peridex) ostomy supplies (Adapt Stoma #28.3 grams 11/12/19 08/07/23 Rx Powder topical) nebulizer accessories #1 ea 07/30/20 08/07/23 Rx sheep skin heel protectors #1 ea 11/11/21 08/07/23 Rx diaper,brief,adult,disposable #240 ea 01/11/22 08/07/23 Rx clozapine 25 mg tablet (Clozaril) 125 mg feeding tube HS 10/27/22 09/01/23 History clozapine 50 mg tablet 50 mg feeding tube QAM 10/27/22 09/01/23 History diaper,brief,adult,disposable #216 ea 01/11/23 08/07/23 Rx (Wings Choice Plus Adult Briefs) allopurinol 100 mg tablet See Rx Instructions feeding tube 03/24/23 09/01/23 Rx .COMPLEX #60 tabs polyethylene glycol 3350 17 See Rx Instructions PO .COMPLEX 04/04/23 09/01/23 Rx gram/dose oral powder (Miralax) constipation #510 grams fluticasone propionate 50 2 spray intranasal DAILY #16 grams 04/24/23 09/01/23 Rx mcg/actuation nasal spray,suspension ipratropium bromide 21 mcg (0.03 2 spray intranasal TID PRN 04/24/23 09/01/23 Rx %) nasal spray postnasal drip #30 mL Fleet Enema 133 ml DE DAILY PRN Constipation 09/01/23 09/01/23 History Insta-Glucose 15 g PO DIRECTED PRN 09/01/23 09/01/23 History Hypoglycemia Methylprednisolone Solution 0.64 ml IV Q8H 09/01/23 09/01/23 History Saccharomyces boulardii 250 mg 250 mg feeding tube BID 09/01/23 09/01/23 History capsule Saline Flush 1,000 ml IV DIRECTED 09/01/23 09/01/23 History Saline Flush 5 ml IV DAILY 09/01/23 09/01/23 History bisacodyl 10 mg rectal suppository 10 mg DE DAILY PRN Constipation 09/01/23 09/01/23 History cefepime 1 gram intravenous 1 g IV .INFUSE OVER 0.5 HR 09/01/23 09/01/23 History piggyback clozapine 100 mg tablet 100 mg feeding tube HS 09/01/23 09/01/23 History dextromethorphan-guaifenesin 10 ml G-tube Q6H PRN Cough 09/01/23 09/01/23 History dextrose 50 % in water (D50W) 25 ml IV DIRECTED 09/01/23 09/01/23 History dextrose 50 % in water (D50W) 50 ml IV DIRECTED PRN 09/01/23 09/01/23 History Hypoglycemia guaifenesin 15 ml G-tube QID 09/01/23 09/01/23 History guaifenesin 100 mg/5 mL oral liquid 100 mg feeding tube TID 09/01/23 09/01/23 History levalbuterol HCl 1.25 mg/3 mL 1.25 mg inhalation Q4H shortness 09/01/23 09/01/23 History solution for nebulization of breath or wheezing or cough loperamide 2 mg capsule 2 mg feeding tube Q4H PRN Loose 09/01/23 09/01/23 History Stool metronidazole 50 ml IV Q8H 09/01/23 09/01/23 History nystatin 100,000 unit/gram topical 1 applic topical BID 09/01/23 09/01/23 History powder (Nystop) ondansetron 4 mg disintegrating 4 mg feeding tube Q4H PRN n/v 09/01/23 09/01/23 History tablet sennosides 8.6 mg tablet (Senokot) 8.6 mg PO .DAILY @ LUNCH PRN 09/01/23 09/01/23 History Constipation sodium chloride-aloe vera nasal 1 ea intranasal BID 09/01/23 09/01/23 History swab tramadol 50 mg tablet 50 mg PO Q8H 09/01/23 09/01/23 History zinc oxide 20 % topical ointment 1 applic topical BID 09/01/23 09/01/23 History Past Med/Surg History Medical History Hypernatremia Hypokalemia Aspiration pneumonitis Acute diastolic CHF (congestive heart failure) Chronic rhinitis Seizure disorder (03/27/12) Esophageal dyskinesia Intellectual disability Uses feeding tube Surgical History History of craniotomy History of colonoscopy History of hernia repair History of esophagogastroduodenoscopy (EGD) History of cholecystectomy Family History Sister Microcephaly Intellectual disability Myelodysplasia (myelodysplastic syndrome) Father Cancer Myocardial infarction Other Family history non-contributory Denies family history of Ovarian cancer Prostate cancer Breast cancer Colorectal cancer Social History Smoking Status: Never smoker Second Hand Exposure: No; Do You Dip or Chew Tobacco: No; Hx Alcohol Use: No Hx Substance Use: No Communication Ability: Unable Visual Impairment: No Limitations Hearing Ability: Normal Loadmaster Required: No Beliefs That Will Affect Care: None marital status: Single Current Living Situation: Boarding Home Current Living Situation Comment: Lives at home with caregivers current occupational status: disabled Feels Safe at Home: Yes Childhood Exposure to Second-Hand Smoke: No Dental Care, Regularly: Yes Physical Activity Frequency: 1-2 Times per Week Seatbelt Use: always Sunscreen Use: No Review of Systems Review of Systems: See HPI above Physical Exam Physical Exam: General: Acute physical/respiratory distress; nonverbal; 92% on OxyMask 4L; frail; non-toxic appearing; cooperative HEENT: Microcephaly; no scleral icterus; PERRLA w/ EOMs intact; dry mucus membrane; unable to assess vision and hearing Neck: supple; no lymphadenopathy; trachea midline Skin: warm, dry without signs of tenting; no cyanosis; no rashes, bruising, lesions, or erythema noted CV: chest wall NTP; RRR; S1/S2 normal; no murmurs/rubs/gallops; pulses intact and symmetric at radial, DP, and PT Lungs: Acute respiratory distress; symmetrical chest wall expansion; minimal wheezing auscultated across all lung espinoza ABD: Soft, NTP; BS present; no rebound/guarding; no distention MSK: no tics or fasciculations; no edema noted in the LEs b/l, nonerythematous Neuro: Nonverbal, unresponsive to questioning; does not respond to commands; unable to assess sensation Results & Data Results & Data Vital Signs (Past 12 Hours) Vital Signs Pulse Resp BP Pulse Ox O2 Del Method O2 Flow Rate 09/01/23 12:05 94 4 09/01/23 12:02 85 09/01/23 11:34 94 Nasal Cannula 4 09/01/23 11:34 76 20 143/68 H 94 Oxymask 4 Laboratory Results Abnormal lab results 09/01/23 09/01/23 09/01/23 Range/Units 11:42 11:44 12:46 RBC 3.02 L (4.70-6.10) M/uL Hgb 10.1 L (14.0-18.0) g/dl Hct 29.8 L (42.0-52.0) % RDW Std Deviation 51.8 H (36.4-46.3) fL Plt Count 117 L (130-400) K/uL MPV 12.9 H (9.4-12.4) fL Lymph # (Auto) 0.43 L (1.20-3.40) K/uL [place] # (Auto) 0.82 H (0.11-0.59) K/uL Immature Gran # (Auto) 0.29 H (0.01-0.20) K/uL Potassium 3.4 L (3.5-5.1) mmol/L Chloride 109 H (98-107) mmol/L Carbon Dioxide 19 L (21-32) mmol/L BUN 106 H (6-23) mg/dl Creatinine 1.65 H (0.6-1.4) mg/dl BUN/Creatinine Ratio 64.2 H (10-20) Glucose 263 H (70-99(Fasting)) mg/dl Calcium 8.1 L (8.6-10.3) mg/dl AST 57 H (13-39) U/L ALT 74 H (7-52) U/L Alkaline Phosphatase 199 H (34-104) U/L Troponin I High Sens 42.4 H (0-20) pg/ml B-Natriuretic Peptide 141 H (0-100) pg/ml Albumin 2.5 L (3.4-5.0) gm/dl Albumin/Globulin Ratio 0.7 L (0.9-2) Influenza Type A (PCR) Positive A* (Neg) Diagnostic Findings Chest X-Ray 09/01/23 11:41 XR chest 1V portable CLINICAL HISTORY: Chest pain, nonspecific TECHNIQUE: Single frontal radiograph of the chest was obtained. Comparison: Comparison is made to chest radiograph 08/14/2023 FINDINGS: No lines and tubes are seen. Cardiomegaly is noted. Multifocal airspace opa cities are slightly increased from prior exam. No evidence of pleural effusion or pneumothorax. IMPRESSION: Slightly increased multifocal airspace opacities compatible with worsening pneumonia. ACT 112: Negative or not required by law. Electronically signed by: Dany George M.D. 09/01/2023 1:32 PM Code Status & VTE Plan Code Status DNR/DNI (per standing resuscitation order) VTE Prophylaxis Plan VTE Prophylaxis will be ordered: Yes Supervising Physician Co-Signing Physician Notes Discussed the case with Marlon BARNES. Admission for multifocal pneumonia. Previously started on Solu-Medrol in outpatient setting. Transition to prednisone for severe pneumonia treatment. PG Care Time/CCT Total # of Minutes Spent Total Time Spent with Patient: Total time spent is greater than 50% in coordination of care (as documented) at patient's floor/unit and/or counseling patient: [place] [address] INT INP/OBS CARE 3/75MIN Patient Type Established History Comprehensive Exam Comprehensive Medical Decision Making High Complexity Diagnoses Influenza A J10.1 Pneumonia J18.9 Sepsis A41.9 Uses feeding tube Z97.8 Congestive heart failure I50.9 Heart failure chronicity: acute Heart failure type: unspecified Myelodysplasia (myelodysplastic syndrome) D46.9 Microcephaly Q02 Seizure disorder G40.909 Gout M10.9 (5) Congestive heart failure Heart failure chronicity: acute Heart failure type: unspecified Qualified Code(s): I50.9 - Heart failure, unspecified
[2023-09-01] MEDS: OSELTAMIVIR PHOSPHATE SUSP 75 MG/12.5 ML UDP PO SCH ×2 (14:16→23:59)
[2023-09-01 15:09] LABS: Troponin I High Sensitivity 43.1 pg/ml (0-20)
--- OUTSIDE RECORDS SUMMARY | 2023-09-01 15:53 | External Medical Summary ---
Author Name Unknown Address Unknown Organization [id number]:[facility] [place] [address] Laboratory Report Ordering Provider Test Date Status JUAN PACKER 08/31/2023 05:26:42 Final Observation Date Value Abnormality Reference (Units ) Status BUN 08/31/2023 05:26:42 102 Above high normal 6-20 (mg/dL) Final Creatinine 08/31/2023 05:26:42 1.7 Above high normal 0.6-1.2 (mg/dL) Final Glomerular filtration rate/1.73 sq M.predicted [Volume Rate/Area] in Serum, Plasma or Blood by Creatinine-based formula (CKD-EPI) 08/31/2023 05:26:42 44 Below low normal >=60 (mL/min) Final eGFR is calculated based on the CKD-EPI 2020 equation SODIUM 08/31/2023 05:26:42 133 Below low normal 135 -146 (mmol/L) Final Potassium 08/31/2023 05:26:42 3.8 3.5-5.1 (m mol/L) Final Cl 08/31/2023 05:26:42 100 98-107 (mm ol/L) Final CO2 08/31/2023 05:26:42 20 Below low normal 22- 32 (mmol/L) Final Anion gap 08/31/2023 05:26:42 13 7-15 (mmol /L) Final Glucose 08/31/2023 05:26:42 187 Above high normal 70 -120 (mg/dL) Final Calcium 08/31/2023 05:26:42 8.0 Below low normal 8.4 -10.2 (mg/dL) Final Performing Location [facility] [place] [address]
--- OUTSIDE RECORDS SUMMARY | 2023-09-01 15:53 | External Medical Summary ---
Author Name Unknown Address Unknown Organization K09:[facility] [place] [address] Laboratory Report Ordering Provider Test Date Status JUAN PACKER 08/23/2023 07:15:39 Final Observation Date Value Abnormality Reference (Units ) Status BUN 08/23/2023 07:15:39 31 Above high normal 6-20 (mg/dL) Final Creatinine 08/23/2023 07:15:39 1.2 0.6-1.2 (mg/dL) Final Glomerular filtration rate/1.73 sq M.predicted [Volume Rate/Area] in Serum, Plasma or Blood by Creatinine-based formula (CKD-EPI) 08/23/2023 07:15:39 69 >=60 (mL/min) Final eGFR is calculated based on the CKD-EPI 2020 equation SODIUM 08/23/2023 07:15:39 143 135-146 (m mol/L) Final Results rechecked. Potassium 08/23/2023 07:15:39 6.3 Above high normal 3. 5-5.1 (mmol/L) Final Results rechecked. Cl 08/23/2023 07:15:39 113 Above high normal 98 -107 (mmol/L) Final CO2 08/23/2023 07:15:39 24 22-32 (mmo l/L) Final Anion gap 08/23/2023 07:15:39 6 Below low normal 7-1 5 (mmol/L) Final Glucose 08/23/2023 07:15:39 125 Above high normal 70 -120 (mg/dL) Final Calcium 08/23/2023 07:15:39 9.2 8.4-10.2 ( mg/dL) Final Performing Location [facility] [place] [address]
--- OUTSIDE RECORDS SUMMARY | 2023-09-01 15:53 | External Medical Summary ---
Author Name Unknown Address Unknown Organization [id number]:[facility] [place] [address] Laboratory Report Ordering Provider Test Date Status JUAN PACKER 08/24/2023 07:30:32 Final Observation Date Value Abnormality Reference (Units ) Status BUN 08/24/2023 07:30:32 38 Above high normal 6-20 (mg/dL) Final Creatinine 08/24/2023 07:30:32 1.2 0.6-1.2 (mg/dL) Final Glomerular filtration rate/1.73 sq M.predicted [Volume Rate/Area] in Serum, Plasma or Blood by Creatinine-based formula (CKD-EPI) 08/24/2023 07:30:32 67 >=60 (mL/min) Final eGFR is calculated based on the CKD-EPI 2020 equation SODIUM 08/24/2023 07:30:32 141 135-146 (m mol/L) Final Potassium 08/24/2023 07:30:32 5.4 Above high normal 3. 5-5.1 (mmol/L) Final Cl 08/24/2023 07:30:32 106 98-107 (mm ol/L) Final CO2 08/24/2023 07:30:32 28 22-32 (mmo l/L) Final Anion gap 08/24/2023 07:30:32 7 7-15 (mmol /L) Final Glucose 08/24/2023 07:30:32 136 Above high normal 70 -120 (mg/dL) Final Calcium 08/24/2023 07:30:32 8.8 8.4-10.2 ( mg/dL) Final Performing Location [facility] [place] [address]
--- OUTSIDE RECORDS SUMMARY | 2023-09-01 15:53 | External Medical Summary ---
Author Name Unknown Address Unknown Organization K09:[facility] [place] [place] [address] Laboratory Report Ordering Provider Test Date Status JUAN PACKER 08/24/2023 07:30:32 Final Observation Date Value Abnormality Reference (Units ) Status WBC, Total 08/24/2023 07:30:32 3.87 Below low normal 4. 00-10.80 (K/uL) Final RBC 08/24/2023 07:30:32 2.99 4.50-5.25 (M/uL) Final Hemoglobin 08/24/2023 07:30:32 10.0 Below low normal 14 .0-16.8 (g/dL) Final HCT 08/24/2023 07:30:32 32.2 Below low normal 40. 0-48.4 (%) Final MCV 08/24/2023 07:30:32 107.7 82.0-99.5 (fL) Final MCH 08/24/2023 07:30:32 33.4 27.0-34.0 (pg) Final MCHC 08/24/2023 07:30:32 31.1 32.0-36.0 (g/dL) Final RDW 08/24/2023 07:30:32 15.3 11.5-15.5 (%) Final Platelets 08/24/2023 07:30:32 162 140-400 (K /uL) Final MPV 08/24/2023 07:30:32 13.7 6.6-11.1 ( fL) Final Performing Location [facility] [address] [place] [address]
--- OUTSIDE RECORDS SUMMARY | 2023-09-01 15:53 | External Medical Summary ---
Author Name Unknown Address Unknown Organization K09:[facility] [place] [address] Laboratory Report Ordering Provider Test Date Status HY,DEPAMPHILIS 08/28/2023 06:00:00 Final Observation Date Value Abnormality Reference (Units ) Status WBC, Total 08/28/2023 06:00:00 3.20 Below low normal 4. 00-10.80 (K/uL) Final RBC 08/28/2023 06:00:00 2.71 4.50-5.25 (M/uL) Final Hemoglobin 08/28/2023 06:00:00 8.9 Below low normal 14 .0-16.8 (g/dL) Final HCT 08/28/2023 06:00:00 28.3 Below low normal 40. 0-48.4 (%) Final MCV 08/28/2023 06:00:00 104.4 82.0-99.5 (fL) Final MCH 08/28/2023 06:00:00 32.8 27.0-34.0 (pg) Final MCHC 08/28/2023 06:00:00 31.4 32.0-36.0 (g/dL) Final RDW 08/28/2023 06:00:00 14.8 11.5-15.5 (%) Final Platelets 08/28/2023 06:00:00 111 Below low normal 140 -400 (K/uL) Final MPV 08/28/2023 06:00:00 13.8 6.6-11.1 ( fL) Final Performing Location [facility] [place] [place] [address]
--- OUTSIDE RECORDS SUMMARY | 2023-09-01 15:53 | External Medical Summary ---
Author Name Unknown Address Unknown Organization K09:[facility] [place] [place] [address] Laboratory Report Ordering Provider Test Date Status HY,DEPAMPHILIS 08/28/2023 06:00:00 Final Observation Date Value Abnormality Reference (Units ) Status BUN 08/28/2023 06:00:00 73 Above high normal 6-20 (mg/dL) Final Creatinine 08/28/2023 06:00:00 1.7 Above high normal 0.6-1.2 (mg/dL) Final Glomerular filtration rate/1.73 sq M.predicted [Volume Rate/Area] in Serum, Plasma or Blood by Creatinine-based formula (CKD-EPI) 08/28/2023 06:00:00 45 Below low normal >=60 (mL/min) Final eGFR is calculated based on the CKD-EPI 2020 equation SODIUM 08/28/2023 06:00:00 133 Below low normal 135 -146 (mmol/L) Final Potassium 08/28/2023 06:00:00 4.9 3.5-5.1 (m mol/L) Final Cl 08/28/2023 06:00:00 98 98-107 (mm ol/L) Final CO2 08/28/2023 06:00:00 23 22-32 (mmo l/L) Final Anion gap 08/28/2023 06:00:00 12 7-15 (mmol /L) Final Glucose 08/28/2023 06:00:00 152 Above high normal 70 -120 (mg/dL) Final Calcium 08/28/2023 06:00:00 8.7 8.4-10.2 ( mg/dL) Final Performing Location [facility] [place] [place] [address]
--- OUTSIDE RECORDS SUMMARY | 2023-09-01 15:53 | External Medical Summary ---
Author Name Unknown Address Unknown Organization K0G:[facility] [address] [place] [address] Laboratory Report Ordering Provider Test Date Status HY,DEPAMPHILIS 08/19/2023 08:13:58 Final Observation Date Value Abnormality Reference (Units ) Status BUN 08/19/2023 08:13:58 31 Above high normal 6-20 (mg/dL) Final Creatinine 08/19/2023 08:13:58 0.8 0.6-1.2 (mg/dL) Final Glomerular filtration rate/1.73 sq M.predicted [Volume Rate/Area] in Serum, Plasma or Blood by Creatinine-based formula (CKD-EPI) 08/19/2023 08:13:58 >90 >=60 (mL/min) Final eGFR is calculated based on the CKD-EPI 2020 equation SODIUM 08/19/2023 08:13:58 150 Above high normal 13 5-146 (mmol/L) Final Potassium 08/19/2023 08:13:58 5.1 3.5-5.1 (m mol/L) Final Cl 08/19/2023 08:13:58 120 Above high normal 98 -107 (mmol/L) Final CO2 08/19/2023 08:13:58 26 22-32 (mmo l/L) Final Anion gap 08/19/2023 08:13:58 4 Below low normal 7-1 5 (mmol/L) Final Glucose 08/19/2023 08:13:58 209 Above high normal 70 -120 (mg/dL) Final Calcium 08/19/2023 08:13:58 8.5 8.4-10.2 ( mg/dL) Final Performing Location [facility] [address] [place] [address]
--- OUTSIDE RECORDS SUMMARY | 2023-09-01 15:53 | External Medical Summary ---
Author Name Unknown Address Unknown Organization K09:[facility] [place] [address] Laboratory Report Ordering Provider Test Date Status JUAN PACKER 08/31/2023 05:26:42 Final Observation Date Value Abnormality Reference (Units ) Status WBC, Total 08/31/2023 05:26:42 6.21 4.00-10.8 0 (K/uL) Final RBC 08/31/2023 05:26:42 2.83 4.50-5.25 (M/uL) Final Hemoglobin 08/31/2023 05:26:42 9.5 Below low normal 14 .0-16.8 (g/dL) Final HCT 08/31/2023 05:26:42 28.8 Below low normal 40. 0-48.4 (%) Final MCV 08/31/2023 05:26:42 101.8 82.0-99.5 (fL) Final MCH 08/31/2023 05:26:42 33.6 27.0-34.0 (pg) Final MCHC 08/31/2023 05:26:42 33.0 32.0-36.0 (g/dL) Final RDW 08/31/2023 05:26:42 14.2 11.5-15.5 (%) Final Platelets 08/31/2023 05:26:42 108 Below low normal 140 -400 (K/uL) Final MPV 08/31/2023 05:26:42 13.6 6.6-11.1 ( fL) Final Performing Location [facility] [place] [address]
--- OUTSIDE RECORDS SUMMARY | 2023-09-01 15:53 | External Medical Summary ---
Author Name Unknown Address Unknown Organization K09:[facility] [place] [address] Laboratory Report Ordering Provider Test Date Status JUAN PACKER 08/24/2023 11:45:33 Final Observation Date Value Abnormality Reference (Units ) Status SYNC LEUKOCYTES IN BLOOD BY AUTOMATED COUNT 08/24/2023 11:45:33 3.90 Below low normal 4.00-10.80 (K/uL) Final Segs 08/24/2023 11:45:33 62.1 40.0-75.0 (%) Final Lymphs % 08/24/2023 11:45:33 23.8 18.0-42.0 (%) Final Monos 08/24/2023 11:45:33 9.5 1.0-11.0 (%) Final Eosinophils 08/24/2023 11:45:33 4.1 0.0-6.0 (%) Final Basos 08/24/2023 11:45:33 0.5 0.0-2.0 (%) Final Absolute Segs 08/24/2023 11:45:33 2.42 1.80-7.70 (K/uL) Final Lymphs, absolute 08/24/2023 11:45:33 0.93 Below low normal 1.00-4.80 (K/ul) Final Monos, Abs 08/24/2023 11:45:33 0.37 0.00-1.10 (K/uL) Final Eos, Abs 08/24/2023 11:45:33 0.16 0.00-0.70 (K/uL) Final Basos, Abs 08/24/2023 11:45:33 0.02 0.00-0.20 (K/uL) Final Performing Location [facility] [place] [address]
--- OUTSIDE RECORDS SUMMARY | 2023-09-01 15:53 | External Medical Summary ---
Author Name Unknown Address Unknown Organization [id number]:[facility] [address] [place] [address] Laboratory Report Ordering Provider Test Date Status DEVANTE MARES 08/30/2023 05:35:00 Final Observation Date Value Abnormality Reference (Units ) Status SYNC LEUKOCYTES IN BLOOD BY AUTOMATED COUNT 08/30/2023 05:35:00 5.87 4.00-10.80 (K/uL) Final Neutrophils/100 leukocytes in Blood by Manual count 08/30/2023 05:35:00 94.0 Above high normal 40.0-75.0 (%) Final Lymphocytes/100 leukocytes in Blood by Manual count 08/30/2023 05:35:00 4.0 Below low normal 18.0-42.0 (%) Final Monocytes/100 leukocytes in Blood by Manual count 08/30/2023 05:35:00 1.0 1.0-11.0 (%) Final Metamyelocytes/100 leukocytes in Blood by Manual count 08/30/2023 05:35:00 1.0 Above high normal <=0.0 (%) Final Neutrophils [#/volume] in Blood by Manual count 08/30/2023 05:35:00 5.52 1.80-7.70 (K/uL) Final Lymphocytes [#/volume] in Blood by Manual count 08/30/2023 05:35:00 0.23 Below low normal 1.00-4.80 (K/uL) Final Monocytes [#/volume] in Blood by Manual count 08/30/2023 05:35:00 0.06 0.00-1.10 (K/uL) Final Metamyelocytes [#/volume] in Blood by Manual count 08/30/2023 05:35:00 0.06 Above high normal <=0.00 (K/uL) Final Nucleated erythrocytes/100 leukocytes [Ratio] in Blood by Automated count 08/30/2023 05:35:00 1 Above high normal <=0 (/100 WBCs) Final Performing Location [facility] [place] [address]
--- OUTSIDE RECORDS SUMMARY | 2023-09-01 15:53 | External Medical Summary ---
Author Name Unknown Address Unknown Organization K09:[facility] [place] [place] [address] Laboratory Report Ordering Provider Test Date Status DEVANTE MARES 08/29/2023 07:31:40 Final Observation Date Value Abnormality Reference (Units ) Status WBC, Total 08/29/2023 07:31:40 2.54 Below low normal 4. 00-10.80 (K/uL) Final RBC 08/29/2023 07:31:40 2.76 4.50-5.25 (M/uL) Final Hemoglobin 08/29/2023 07:31:40 9.2 Below low normal 14 .0-16.8 (g/dL) Final HCT 08/29/2023 07:31:40 28.3 Below low normal 40. 0-48.4 (%) Final MCV 08/29/2023 07:31:40 102.5 82.0-99.5 (fL) Final MCH 08/29/2023 07:31:40 33.3 27.0-34.0 (pg) Final MCHC 08/29/2023 07:31:40 32.5 32.0-36.0 (g/dL) Final RDW 08/29/2023 07:31:40 14.4 11.5-15.5 (%) Final Platelets 08/29/2023 07:31:40 104 Below low normal 140 -400 (K/uL) Final MPV 08/29/2023 07:31:40 13.8 6.6-11.1 ( fL) Final Performing Location [facility] [place] [address]
--- OUTSIDE RECORDS SUMMARY | 2023-09-01 15:53 | External Medical Summary ---
Author Name Unknown Address Unknown Organization K09:[facility] [address] Laboratory Report Ordering Provider Test Date Status JUAN PACKER 08/24/2023 11:45:33 Final Observation Date Value Abnormality Reference (Units ) Status Nucleated erythrocytes/100 leukocytes [Ratio] in Blood by Automated count 08/24/2023 11:45:33 Final Performing Location [facility] [place] [address]
--- OUTSIDE RECORDS SUMMARY | 2023-09-01 15:53 | External Medical Summary | Summary of Care ---
Author Name Unknown Organization [facility] Address [address] [place] [address] Phone [phone] Care Team Providers Care Network Security Engineer Name Role Phone Von Stewart MD Primary Care Provi dung Encounter Details Date Type Department Care Team (Late st Contact Info) Description 06/26/2023 Telephone Nutrition & Weight Management, [facility] [address] [place] [phone] Shellie Hall, [address] [place] [phone] Allergies Active Allergy Reactions Criticality Noted Date Comments Neomycin-Polymyxin B Gu 07/01/2010 Aripiprazole 07/01/2010 Belladonna Alkaloids 07/01/2010 Clarithromycin 12/25/2002 Stomach upset Clarithromycin 07/01/2010 Glycopyrrolate Base 12/25/2002 Aggressive [place]kin 12/25/2002 Aggressive Macrolides And Ketolides 07/01/2010 Other - Drugs 07/01/2010 alkolide Risperidone 07/01/2010 Trazodone 12/08/2005 Swelling of face and hands, and aggressive documented as of this encounter (statuses as of 08/25/2023) Medications Medication Sig Dispensed Refills Start Date [...] TUBE. 50 mL 0 05/16/2023 Active Nystatin 143532 UNIT/GM External Powder (Nystop)Indications: Fungal skin infection Apply to affected area twice a day. Per wound care nurse instruction until skin is healed 15 g 2 06/09/2023 Active Kaltostat 2"x2" External PadIndications:Funga l skin infection Apply to affected area per wound care nurse instruction. 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 CHRONIC RENAL FAILURE 01/06/20032005 documented as of this encounter (statuses as of 08/25/2023) Immunizations Name Administration Dates Next Due H1N1 [...] encounter Miscellaneous Notes * Telephone Encounter - Oneida Andrade LPN - 06/26/2023 11:06 AM EDT Skills calling in. Stating that is having increased drainage. From around tube not from the tube itself. Not noting skin break down or irritation. The Kaltostat pads have been helping from the samples given. Unable to get the prescription though due to cost. Tube is holding in place. Not coming outor loose. Please advise. Appt? Please call Yahaira at [phone] with information. documented in this encounter Plan of Treatment Upcoming Encounters Date Type Department Care Team (Late st Contact Info) Description 10/31/2023 11:40 AM EST Office Visit Gastroenterology, [facility] [address] [place] [phone] Ruben Ramos MD [address] [place] [phone] Health Maintenance Due Date Last Done Comments [...] filedocumented as of this encounter Care Teams Network Security Engineer Relationship Specialty Start Date End Date Von Stewart MD [address] [place] [address] [place] [id number] PCP - General Internal Medicine 02/04/21 documented as of this encounter
--- OUTSIDE RECORDS SUMMARY | 2023-09-01 15:53 | External Medical Summary ---
Author Name Unknown Address Unknown Organization K09:[facility] [place] [address] [place] [address] Laboratory Report Ordering Provider Test Date Status JUAN PACKER 08/24/2023 11:45:33 Final Observation Date Value Abnormality Reference (Units ) Status WBC, Total 08/24/2023 11:45:33 3.90 Below low normal 4. 00-10.80 (K/uL) Final RBC 08/24/2023 11:45:33 3.03 4.50-5.25 (M/uL) Final Hemoglobin 08/24/2023 11:45:33 10.1 Below low normal 14 .0-16.8 (g/dL) Final HCT 08/24/2023 11:45:33 32.7 Below low normal 40. 0-48.4 (%) Final MCV 08/24/2023 11:45:33 107.9 82.0-99.5 (fL) Final MCH 08/24/2023 11:45:33 33.3 27.0-34.0 (pg) Final MCHC 08/24/2023 11:45:33 30.9 32.0-36.0 (g/dL) Final RDW 08/24/2023 11:45:33 15.4 11.5-15.5 (%) Final Platelets 08/24/2023 11:45:33 160 140-400 (K /uL) Final MPV 08/24/2023 11:45:33 13.9 6.6-11.1 ( fL) Final Performing Location [facility] [address] [place] [address]
--- OUTSIDE RECORDS SUMMARY | 2023-09-01 15:53 | External Medical Summary ---
Author Name Unknown Address Unknown Organization K09:[facility] [address] [place] [address] Laboratory Report Ordering Provider Test Date Status JUAN PACKER 08/17/2023 06:58:39 Final Observation Date Value Abnormality Reference (Units ) Status WBC, Total 08/17/2023 06:58:39 7.77 4.00-10.8 0 (K/uL) Final RBC 08/17/2023 06:58:39 3.20 4.50-5.25 (M/uL) Final Hemoglobin 08/17/2023 06:58:39 10.6 Below low normal 14 .0-16.8 (g/dL) Final HCT 08/17/2023 06:58:39 32.8 Below low normal 40. 0-48.4 (%) Final MCV 08/17/2023 06:58:39 102.5 82.0-99.5 (fL) Final MCH 08/17/2023 06:58:39 33.1 27.0-34.0 (pg) Final MCHC 08/17/2023 06:58:39 32.3 32.0-36.0 (g/dL) Final RDW 08/17/2023 06:58:39 15.0 11.5-15.5 (%) Final Platelets 08/17/2023 06:58:39 119 Below low normal 140 -400 (K/uL) Final MPV 08/17/2023 06:58:39 14.1 6.6-11.1 ( fL) Final Performing Location [facility] [address] [place] [address]
--- OUTSIDE RECORDS SUMMARY | 2023-09-01 15:53 | External Medical Summary ---
Author Name Unknown Address Unknown Organization K09:[facility] [place] [address] Laboratory Report Ordering Provider Test Date Status DEVANTE MARES 08/29/2023 07:31:40 Final Observation Date Value Abnormality Reference (Units ) Status Nucleated erythrocytes/100 leukocytes [Ratio] in Blood by Automated count 08/29/2023 07:31:40 Final Performing Location [facility] [place] [address]
--- OUTSIDE RECORDS SUMMARY | 2023-09-01 15:53 | External Medical Summary ---
Author Name Unknown Address Unknown Organization K01[facility] [place] [address] [place] [address] Laboratory Report Ordering Provider Test Date Status DEVANTE MARES 08/30/2023 05:30:00 Final Observation Date Value Abnormality Reference (Units) Status Bacteria identified in Specimen by Culture 08/30/2023 05:30:00 No significant growth Final Test: Culture, Urine, Quanti tative
Specimen Type: Urine
Specimen Date: 08/30/2023 5:30 AM
Result Date: 08/31/2023 8:59 AM
Result Status: Final result
Resulting Lab: [facility] [place]
[address]
[place] [address]

CULTURE

No significant growth

null Performing Location [facility] [place] [address] [facility] [address]
--- OUTSIDE RECORDS SUMMARY | 2023-09-01 15:53 | External Medical Summary ---
Author Name Unknown Address Unknown Organization K09:[facility] [address] [place] [address] Laboratory Report Ordering Provider Test Date Status DEVANTE MARES 08/29/2023 07:31:40 Final Observation Date Value Abnormality Reference (Units ) Status SYNC LEUKOCYTES IN BLOOD BY AUTOMATED COUNT 08/29/2023 07:31:40 2.54 Below low normal 4.00-10.80 (K/uL) Final Segs 08/29/2023 07:31:40 81.5 Above high normal 40.0-75.0 (%) Final Lymphs % 08/29/2023 07:31:40 9.8 Below low normal 18.0-42.0 (%) Final Monos 08/29/2023 07:31:40 7.9 1.0-11.0 (%) Final Eosinophils 08/29/2023 07:31:40 0.4 0.0-6.0 (%) Final Basos 08/29/2023 07:31:40 0.4 0.0-2.0 (%) Final Absolute Segs 08/29/2023 07:31:40 2.07 1.80-7.70 (K/uL) Final Lymphs, absolute 08/29/2023 07:31:40 0.25 Below low normal 1.00-4.80 (K/ul) Final Monos, Abs 08/29/2023 07:31:40 0.20 0.00-1.10 (K/uL) Final Eos, Abs 08/29/2023 07:31:40 0.01 0.00-0.70 (K/uL) Final Basos, Abs 08/29/2023 07:31:40 0.01 0.00-0.20 (K/uL) Final Performing Location [facility] [address] [place] [address]
--- OUTSIDE RECORDS SUMMARY | 2023-09-01 15:53 | External Medical Summary ---
Author Name Unknown Address Unknown Organization K09:[facility] [address] [place] [address] Laboratory Report Ordering Provider Test Date Status DEVANTE MARES 08/29/2023 07:31:40 Final Observation Date Value Abnormality Reference (Units ) Status BUN 08/29/2023 07:31:40 84 Above high normal 6-20 (mg/dL) Final Creatinine 08/29/2023 07:31:40 1.6 Above high normal 0.6-1.2 (mg/dL) Final Glomerular filtration rate/1.73 sq M.predicted [Volume Rate/Area] in Serum, Plasma or Blood by Creatinine-based formula (CKD-EPI) 08/29/2023 07:31:40 45 Below low normal >=60 (mL/min) Final eGFR is calculated based on the CKD-EPI 2020 equation SODIUM 08/29/2023 07:31:40 131 Below low normal 135 -146 (mmol/L) Final Potassium 08/29/2023 07:31:40 4.9 3.5-5.1 (m mol/L) Final Cl 08/29/2023 07:31:40 97 Below low normal 98- 107 (mmol/L) Final CO2 08/29/2023 07:31:40 21 Below low normal 22- 32 (mmol/L) Final Anion gap 08/29/2023 07:31:40 13 7-15 (mmol /L) Final Glucose 08/29/2023 07:31:40 148 Above high normal 70 -120 (mg/dL) Final Albumin 08/29/2023 07:31:40 2.4 Below low normal 3.8 -5.0 (g/dL) Final AST (Aspartate aminotransferase) 08/29/2023 07:31:40 140 Above high normal 10-50 (U/L) Final Result may be falsely elevat ed due to hemolysis. Alk Phos 08/29/2023 07:31:40 443 Above high normal 35 -130 (U/L) Final Bilirubin, Total 08/29/2023 07:31:40 <0.2 <=1 .2 (mg/dL) Final Calcium 08/29/2023 07:31:40 8.6 8.4-10.2 ( mg/dL) Final Protein 08/29/2023 07:31:40 5.4 Below low normal 6.0 -8.3 (g/dL) Final ALT (Alanine aminotransferase) 08/29/2023 07:31:40 152 Above high normal 10-50 (U/L) Final Performing Location [facility] [address] [place] [address]
--- OUTSIDE RECORDS SUMMARY | 2023-09-01 15:53 | External Medical Summary ---
Author Name Unknown Address Unknown Organization K09:[facility] [address] [place] [address] Laboratory Report Ordering Provider Test Date Status DEVANTE MARES 08/30/2023 05:30:00 Final Observation Date Value Abnormality Reference (Units ) Status Color of Urine by Auto 08/30/2023 05:30:00 Yellow Light Yellow, Yellow, Dark Yellow Final Clarity, Urine 08/30/2023 05:30:00 Clear Clear Final Glucose [Mass/volume] in Urine by Automated test strip 08/30/2023 05:30:00 Negative Negative (mg/dL) Final Bilirubin.total [Presence] in Urine by Automated test strip 08/30/2023 05:30:00 Negative Negative Final Ketones [Mass/volume] in Urine by Automated test strip 08/30/2023 05:30:00 Negative Negative (mg/dL) Final Specific gravity, Urine 08/30/2023 05:30:00 1.015 1.003-1.030 Final Hemoglobin [Presence] in Urine by Automated test strip 08/30/2023 05:30:00 Small Abnormal Negative Final pH, Urine 08/30/2023 05:30:00 5.0 5.0-7.5 (Units) Final Protein [Mass/volume] in Urine by Automated test strip 08/30/2023 05:30:00 Negative Negative (mg/dL) Final Urobilinogen [Mass/volume] in Urine by Automated test strip 08/30/2023 05:30:00 0.2 0.2, 1.0 (mg/dL) Final Nitrite [Presence] in Urine by Automated test strip 08/30/2023 05:30:00 Negative Negative Final Leukocyte esterase [Presence] in Urine by Automated test strip 08/30/2023 05:30:00 Small Abnormal Negative Final RBC, Urine 08/30/2023 05:30:00 0-2 0-2 (/HPF) Final WBC, Urine 08/30/2023 05:30:00 6-9 Abnormal 0-2 (/HPF) Final Bacteria [#/area] in Urine sediment by Microscopy high power field 08/30/2023 05:30:00 0-25 0-25 (/HPF) Final Performing Location [facility] [address] [place] [address]
--- OUTSIDE RECORDS SUMMARY | 2023-09-01 15:53 | External Medical Summary ---
Author Name Unknown Address Unknown Organization K09:[facility] [address] [place] [address] Laboratory Report Ordering Provider Test Date Status DEVANTE MARES 08/30/2023 05:35:00 Final Observation Date Value Abnormality Reference (Units ) Status WBC, Total 08/30/2023 05:35:00 5.87 4.00-10.8 0 (K/uL) Final RBC 08/30/2023 05:35:00 2.87 4.50-5.25 (M/uL) Final Hemoglobin 08/30/2023 05:35:00 9.5 Below low normal 14 .0-16.8 (g/dL) Final HCT 08/30/2023 05:35:00 29.1 Below low normal 40. 0-48.4 (%) Final MCV 08/30/2023 05:35:00 101.4 82.0-99.5 (fL) Final MCH 08/30/2023 05:35:00 33.1 27.0-34.0 (pg) Final MCHC 08/30/2023 05:35:00 32.6 32.0-36.0 (g/dL) Final RDW 08/30/2023 05:35:00 14.1 11.5-15.5 (%) Final Platelets 08/30/2023 05:35:00 103 Below low normal 140 -400 (K/uL) Final MPV 08/30/2023 05:35:00 14.0 6.6-11.1 ( fL) Final Performing Location [facility] [place] [address] [place] [address]
--- OUTSIDE RECORDS SUMMARY | 2023-09-01 15:53 | External Medical Summary ---
Author Name Unknown Address Unknown Organization K0G:[facility] [address] [place] [address] Laboratory Report Ordering Provider Test Date Status JUAN PACKER 08/26/2023 05:20:00 Final Observation Date Value Abnormality Reference (Units ) Status BUN 08/26/2023 05:20:00 50 Above high normal 6-20 (mg/dL) Final Creatinine 08/26/2023 05:20:00 1.3 Above high normal 0.6-1.2 (mg/dL) Final Glomerular filtration rate/1.73 sq M.predicted [Volume Rate/Area] in Serum, Plasma or Blood by Creatinine-based formula (CKD-EPI) 08/26/2023 05:20:00 61 >=60 (mL/min) Final eGFR is calculated based on the CKD-EPI 2020 equation SODIUM 08/26/2023 05:20:00 139 135-146 (m mol/L) Final Potassium 08/26/2023 05:20:00 5.1 3.5-5.1 (m mol/L) Final Cl 08/26/2023 05:20:00 104 98-107 (mm ol/L) Final CO2 08/26/2023 05:20:00 23 22-32 (mmo l/L) Final Anion gap 08/26/2023 05:20:00 12 7-15 (mmol /L) Final Glucose 08/26/2023 05:20:00 149 Above high normal 70 -120 (mg/dL) Final Calcium 08/26/2023 05:20:00 9.9 8.4-10.2 ( mg/dL) Final Performing Location [facility] [address] [place] [address]
--- OUTSIDE RECORDS SUMMARY | 2023-09-01 15:53 | External Medical Summary ---
Author Name Unknown Address Unknown Organization K09:[facility] [address] [place] [address] Laboratory Report Ordering Provider Test Date Status DEVANTE MARES 08/30/2023 05:35:00 Final Observation Date Value Abnormality Reference (Units ) Status BUN 08/30/2023 05:35:00 94 Above high normal 6-20 (mg/dL) Final Creatinine 08/30/2023 05:35:00 1.7 Above high normal 0.6-1.2 (mg/dL) Final Glomerular filtration rate/1.73 sq M.predicted [Volume Rate/Area] in Serum, Plasma or Blood by Creatinine-based formula (CKD-EPI) 08/30/2023 05:35:00 43 Below low normal >=60 (mL/min) Final eGFR is calculated based on the CKD-EPI 2020 equation SODIUM 08/30/2023 05:35:00 130 Below low normal 135 -146 (mmol/L) Final Potassium 08/30/2023 05:35:00 4.7 3.5-5.1 (m mol/L) Final Cl 08/30/2023 05:35:00 96 Below low normal 98- 107 (mmol/L) Final CO2 08/30/2023 05:35:00 19 Below low normal 22- 32 (mmol/L) Final Anion gap 08/30/2023 05:35:00 15 7-15 (mmol /L) Final Glucose 08/30/2023 05:35:00 181 Above high normal 70 -120 (mg/dL) Final Albumin 08/30/2023 05:35:00 2.4 Below low normal 3.8 -5.0 (g/dL) Final AST (Aspartate aminotransferase) 08/30/2023 05:35:00 166 Above high normal 10-50 (U/L) Final Alk Phos 08/30/2023 05:35:00 348 Above high normal 35 -130 (U/L) Final Bilirubin, Total 08/30/2023 05:35:00 <0.2 <=1 .2 (mg/dL) Final Calcium 08/30/2023 05:35:00 8.2 Below low normal 8.4 -10.2 (mg/dL) Final Protein 08/30/2023 05:35:00 5.5 Below low normal 6.0 -8.3 (g/dL) Final ALT (Alanine aminotransferase) 08/30/2023 05:35:00 149 Above high normal 10-50 (U/L) Final Performing Location [facility] [place] [address]
--- OUTSIDE RECORDS SUMMARY | 2023-09-01 15:53 | External Medical Summary ---
Author Name Unknown Address Unknown Organization K09:[facility] [place] [address] Laboratory Report Ordering Provider Test Date Status JUAN PACKER 08/17/2023 06:58:39 Final Observation Date Value Abnormality Reference (Units ) Status BUN 08/17/2023 06:58:39 46 Above high normal 6-20 (mg/dL) Final Creatinine 08/17/2023 06:58:39 0.8 0.6-1.2 (mg/dL) Final Glomerular filtration rate/1.73 sq M.predicted [Volume Rate/Area] in Serum, Plasma or Blood by Creatinine-based formula (CKD-EPI) 08/17/2023 06:58:39 >90 >=60 (mL/min) Final eGFR is calculated based on the CKD-EPI 2020 equation SODIUM 08/17/2023 06:58:39 147 Above high normal 13 5-146 (mmol/L) Final Potassium 08/17/2023 06:58:39 4.1 3.5-5.1 (m mol/L) Final Cl 08/17/2023 06:58:39 121 Above high normal 98 -107 (mmol/L) Final CO2 08/17/2023 06:58:39 20 Below low normal 22- 32 (mmol/L) Final Anion gap 08/17/2023 06:58:39 6 Below low normal 7-1 5 (mmol/L) Final Glucose 08/17/2023 06:58:39 149 Above high normal 70 -120 (mg/dL) Final Calcium 08/17/2023 06:58:39 7.7 Below low normal 8.4 -10.2 (mg/dL) Final Performing Location [facility] [place] [address]
--- OUTSIDE RECORDS SUMMARY | 2023-09-01 15:53 | External Medical Summary ---
Author Name Unknown Address Unknown Organization K09:[facility] [place] [address] Laboratory Report Ordering Provider Test Date Status DEVANTE MARES 09/01/2023 07:17:32 Final Observation Date Value Abnormality Reference (Units ) Status BUN 09/01/2023 07:17:32 101 Above high normal 6- 20 (mg/dL) Final Results rechecked. Creatinine 09/01/2023 07:17:32 1.5 Above high normal 0 .6-1.2 (mg/dL) Final Glomerular filtration rate/1.73 sq M.predicted [Volume Rate/Area] in Serum, Plasma or Blood by Creatinine-based formula (CKD-EPI) 09/01/2023 07:17:32 50 Below low normal >=60 (mL/min ) Final eGFR is calculated based on the CKD-EPI 2020 equation SODIUM 09/01/2023 07:17:32 139 135-146 (m mol/L) Final Potassium 09/01/2023 07:17:32 3.9 3.5-5.1 (m mol/L) Final Cl 09/01/2023 07:17:32 106 98-107 (mm ol/L) Final CO2 09/01/2023 07:17:32 20 Below low normal 22- 32 (mmol/L) Final Anion gap 09/01/2023 07:17:32 13 7-15 (mmol /L) Final Glucose 09/01/2023 07:17:32 204 Above high normal 70 -120 (mg/dL) Final Calcium 09/01/2023 07:17:32 8.2 Below low normal 8.4 -10.2 (mg/dL) Final Performing Location [facility] [place] [address]
--- OUTSIDE RECORDS SUMMARY | 2023-09-01 15:54 | External Medical Summary | Summary of Care ---
Author Name Unknown Organization [facility] Address [address] [place] [address] Phone [phone] Care Team Providers Care Snuff Container Inspector Name Role Phone Von Stewart MD Primary Care Provi dung Encounter Details Date Type Department Care Team (Late st Contact Info) Description 05/09/2023 Telephone Gastroenterology, [facility] [address] [facility] [address] Ruben Ramos MD [address] [facility] [address] Allergies Active Allergy Reactions Criticality Noted Date Comments Neomycin-Polymyxin B Gu 07/01/2010 Aripiprazole 07/01/2010 Belladonna Alkaloids 07/01/2010 Clarithromycin 12/25/2002 Stomach upset Clarithromycin 07/01/2010 Glycopyrrolate Base 12/25/2002 Aggressive [place] 12/25/2002 Aggressive Macrolides And Ketolides 07/01/2010 Other - Drugs 07/01/2010 alkolide Risperidone 07/01/2010 Trazodone 12/08/2005 Swelling of face and hands, and aggressive documented as of this encounter (statuses as of 08/08/2023) Medications Medication Sig Dispensed Refills Start Date [...] TUBE. 50 mL 0 05/16/2023 Active Nystatin 142673 UNIT/GM External Powder (Nystop) Apply topically to affected area 3 times a day. Apply to as directed 0 06/06/2023 Discontinue d(Refill) Sulfamethoxazole-T rimethoprim 200-40 MG/5ML Oral Suspension (Bactrim) Take 5 mL by mouth in the morning and 5 mL before bedtime. Do all this for 5 days. 50 mL 0 05/16/2023 05/16/2023 Discontinue d(Refill) documented as of this encounter (statuses as of 08/08/2023) Active Problems Problem Noted Date Diagnosed Date [...] as of this encounter (statuses as of 08/08/2023) Resolved Problems Problem Noted Date Diagnosed Date Resolved Date Other disorder of eating of nonorganic origin 06/07/20 10 01/07/2011 Generalized anxiety disorder 06/26/2007 10/09/2008 Overview: Resolved per Duplicate Protocol #2. CHRONIC RENAL FAILURE 01/06/20032005 documented as of this encounter (statuses as of 08/08/2023) Immunizations Name Administration Dates Next Due H1N1 [...] Telephone Encounter - Jen Powers RN - 05/19/2023 10:32 AM EDT Please see alternative encounter. OV scheduled 05/19/23 * Telephone Encounter - Jen Powers RN - 05/16/2023 1:52 PM EDT Yahaira called back and I relayed the message. She will relay this to the staff at the custodial as well. I advised her to call us for any worsening symptoms while on antibiotics. She is going to let us know how he doing once the course of antibiotics is complete. She asked that just for the time being if she could place a piece of gauze between the abdominal binder and the PEG tube site (held by the binder) so the binder does not get soiled. Will not use tape and gauze will be changed once soiled. Ultimately she is aware we would like this open to air but for the time being can be used to catch drainage/ protect the binder. Once drainage stops then she will go back to clean , dry no dressings. GODWINI. Will save this encounter in nursing inbox to revisit in 5 days * Telephone Encounter - Jen Powers RN - 05/16/2023 12:55 PM EDT Left a message for Yahaira with call back number. * Telephone Encounter - Ruben Ramos MD - 05/16/2023 12:50 PM EDT Can send a Rx for bactrim for possible skin infection given he is at a custodial. If no improvement, likely needs antifungal and or re-evaluation in the office. Ruben Ramos MD * Telephone Encounter - Jen Powers RN - 05/16/2023 9:26 AM EDT I called and spoke with yahaira the nurse that assists with his PEG tube. Reports she does not go everyday. Reports some days she goes and some days the staff administers feedings. Reports feedings have been going in well. She was just there Monday. Reports she was able to aspirate from the PEG and give feedings then just fine. However the PEG tube is draining a Serosanguinous fluid. PEG tube site is red around it. Reports the had to put some gauze between the binder and the tube just to catch the drainage. Denies he has a fever. Unsure what they should do about the drainage or redness. Please advise. Dr. Ramos in office today will review * Telephone Encounter - Hawa Kaur OSA - 05/16/2023 9:04 AM EDT intermediate called in and states that there is a lot of redness around the peg tube site. Can they apply calmoseptine cream to the site? Please advise Thank you KIKO Douglass * Telephone Encounter - Jen Powers RN - 05/09/2023 12:15 PM EDT Called and spoke to Yahaira who reports she is the nurse that works with this patient. She wanted clarification in writing on what they are to be doing with the PEG tube site as far as cleaning and dressings as they were told at his office visit they were doing it wrong. I advised per Dr. Telles's notethey are to keep it clean , dry and intact. No dressings under the PEG tube.Relayed PEG education from our office that states to clean the PEG with antibacterial soap and water/ call for signs of infection and or problems with the PEG tube function. At this time Yahaira reports " it is probably a little red". Reports no drainage around the PEG . No leaking of the PEG and feedings are going in well. No fever. Aware to call us if feedings are not going in well, he has drainage from the PEG tube site, gets a fever or has any issues with his PEGs function. She asked that I fax a copy of this in writing. As she needs to have something physical on hand to relay to caretakers. I faxed a copy of the office note from Dr. Ramos and PEG tube education from our office in reference to cleaning the site, signs of infection, and to call with with problems such as leaking fluids, tube breaks and or tube dislodgement. Dr. Ramos FYI * Telephone Encounter - Jen Powers RN - 05/09/2023 11:48 AM EDT Return # for Yahaira is [phone] * Telephone Encounter - Gypsy Bowens OSA - 05/09/2023 11:04 AM EDT Please fax instructions on peg tube cleaning maintenance for patient. Please send as attention to Yahaira to [phone]. Wanted to make sure they were cleaning the site properly and would like instructions sent over to do so. Thank you documented in this encounter Plan of Treatment Upcoming Encounters Date Type Department Care Team (Late st Contact Info) Description 10/31/2023 11:40 AM EST Office Visit [facility], [facility] [place] [address] Ruben Ramos MD [address] [place] [address] Health Maintenance Due Date Last Done Comments Depression Screening 1967 Hepatitis C Screening 1973 Cologuard 2000 Fecal Occult Blood Test 2000 Sigmoidoscopy 2000 Lipid Panel 12/28/2016 12/29/2011, 07/12, 02/11/2011, Additional history exists Colonoscopy 05/26/2020 05/26/2010, 06/12/2007 Colorectal Cancer Screening 05/26/2020 DTaP,Tdap,and Td Vaccines (2 - Td or Tdap) 02/11/2021 02/11/2011, 03/15/2001, 03/15/2001 COVID-19 Vaccine (3 - 24 season) 2023 11/06/2020, 10/16/2020 Influenza Vaccine (FLU [...] filedocumented as of this encounter Care Teams Snuff Container Inspector Relationship Specialty Start Date End Date Von Stewart MD [address] [place] [address] [place] [id number] PCP - General Internal Medicine 02/04/21 documented as of this encounter
[2023-09-01] MEDS ORDERED: SALINE FLUSH IV SCH (17:59)
[2023-09-01] MEDS ORDERED: DEXTROSE 50% 50 ML SYRINGE IV PRN (17:59)
[2023-09-01] MEDS ORDERED: DEXTROSE 50% 50 ML SYRINGE IV SCH (17:59)
[2023-09-01] MEDS ORDERED: bisacodyL 10 MG SUPP PR PRN (17:59)
[2023-09-01] MEDS ORDERED: ONDANSETRON 4 MG OD TAB GT PRN (17:59)
[2023-09-01] MEDS ORDERED: NUTREN LIQD 2.0 1,000 ML BAG GT SCH (17:59)
[2023-09-01] MEDS ORDERED: DEXTROMETHORPHAN GUAIFENESIN GT PRN (17:59)
[2023-09-01] MEDS ORDERED: ALUMINUM/MAGNESIUM/SIMETH (MAALOX MAX) 30 ML UDC GT PRN (19:44)
[2023-09-01] MEDS: LEVALBUTEROL 1.25 MG/3 ML NEB INH SCH ×2 (19:46→23:24)
[2023-09-01] MEDS ORDERED: SOD PHOSPHATE/SOD BIPHOSPHATE ENEMA 132 ML BTL PR PRN (19:49)
[2023-09-01] MEDS ORDERED: ALOE VERA INTNAS SCH (21:00)
[2023-09-01] MEDS ORDERED: SODIUM CHLORIDE INTNAS SCH (21:00)
[2023-09-01] MEDS ORDERED: cloZAPine 25 MG TAB PO SCH (21:00)
[2023-09-01] MEDS ORDERED: guaiFENesin SUGAR FREE 100 MG/5 ML UDC GT SCH (21:00)
[2023-09-01] MEDS: metroNIDAZOLE 500 MG/100 ML BAG IV SCH (22:19)
[2023-09-01] MEDS: CEFEPIME 2,000 MG in SYRINGE 0 ML IV SCH (22:23)
[2023-09-01] MEDS: allopurinoL 100 MG TAB GT SCH (22:32)
[2023-09-01] MEDS: CHLORHEXIDINE GLUCONATE 0.12% 480 ML MT SCH (22:34)
[2023-09-01] MEDS: HEPARIN SOD 5,000 UNIT/0.5 ML VIAL SQ SCH (22:35)
[2023-09-01] MEDS: BUTT PASTE (ZINC OXIDE 16%) 171 APPLN/57 GM JAR TOP SCH (22:35)
[2023-09-01] MEDS: guaiFENesin SUGAR FREE 100 MG/5 ML UDC GT SCH (22:44)
[2023-09-01] MEDS: cloZAPine 100 MG TAB PO SCH (23:58)
[2023-09-01] MEDS: cloZAPine 25 MG TAB PO SCH (23:59)
[2023-09-02] MEDS: LEVALBUTEROL 1.25 MG/3 ML NEB INH SCH ×6 (02:27→23:04)
[2023-09-02] MEDS: metroNIDAZOLE 500 MG/100 ML BAG IV SCH (04:07)
[2023-09-02 06:24] LABS: Basophils # (auto) 0.06 K/uL (0.00-0.20); Hemoglobin 9.4 g/dl (14.0-18.0); Immature Granulocytes # (auto) 0.28 K/uL (0.01-0.20); Immature Granulocytes % (auto) 4.7 %; Lymphocytes # (auto) 0.69 K/uL (1.20-3.40); Lymphocytes % (auto) 11.5 %; Mean Corpuscular Hemoglobin 32.6 pg (25.0-34.0); Mean Corpuscular Hgb Conc 32.4 g/dL (32.0-36.0); Mean Corpuscular Volume 100.7 fL (80.0-100.0); Mean Platelet Volume 12.8 fL (9.4-12.4); Monocytes # (auto) 0.82 K/uL (0.11-0.59); Monocytes % (auto) 13.6 %; Neutrophils # (auto) 4.17 K/uL (1.40-6.50); Neutrophils % (auto) 69.2 %; Nucleated RBC # (auto) 0.03 K/uL (0.00-0.12); Nucleated RBC % (auto) 0.5 %; Platelet Count 112 K/uL (130-400); RDW Coefficient of Variation 14.3 % (11.5-14.5); RDW Standard Deviation 52.3 fL (36.4-46.3); Red Blood Count 2.88 M/uL (4.70-6.10); White Blood Count 6.02 K/ul (4.8-10.8)
--- NOTE | 2023-09-02 06:50 | Electrocardiogram Report ---
Test Reason : Blood Pressure : / mmHG Vent. Rate : 078 BPM Atrial Rate : 078 BPM P-R Int : 192 ms QRS Dur : 112 ms QT Int : 364 ms P-R-T Axes : 057 -68 063 degrees QTc Int : 414 ms Normal sinus rhythm Left axis deviation Minimal voltage criteria for LVH, may be normal variant ( Jason product ) Septal infarct , age undetermined Abnormal ECG When compared with ECG of 07-AUG-2023 01:10, Septal infarct is now Present Confirmed by Pramod Palacios ([id number]) on 09/02/2023 6:49:42 AM Referred By: Confirmed By:Pramod Palacios
[2023-09-02 06:52] LABS: Anion Gap 7 (3-11); BUN Creatinine Ratio 69.3 (10-20); Blood Urea Nitrogen 104 mg/dl (6-23); Carbon Dioxide 21 mmol/L (21-32); Chloride 116 mmol/L (98-107); Creatinine Clr Calc Pharmacy 39.5 ml/min; Est GFR (African American) 54.7 ml/min; Est GFR (Non-African American) 47.2 ml/min; Glucose 181 mg/dl (70-99(Fasting)); Magnesium 3.2 mg/dl (1.7-2.4); Sodium 144 mmol/L (136-145)
--- NOTE | 2023-09-02 07:46 | Hospitalist Progress Note ---
"Date of Service September 02, 2023 Assessment & Plan (1) Influenza A: (2) Pneumonia: (3) Uses feeding tube: (4) Congestive heart failure: (5) Myelodysplasia (myelodysplastic syndrome): (6) Microcephaly: (7) Seizure disorder: (8) Gout: Plan Marty is a 68M w/ PMH of CHF, myelodysplastic syndrome, chronic feeding tube use, microcephaly/intellectual disability/seizure disorder, esophageal dyskinesia, and gout who is admitted for management of multifocal PNA in the setting of acute influenza A. Influenza A | Bacterial PNA (likely MRSA) - Recent [facility] admission from 08/07 - 08/16 for ARF and aspiration pneumonitis - Reportedly on Solu-Medrol 40 mg IV q8h starting 08/29 per review of chart - Patient came in from [facility]; 08/31 was started on cefepime 1000 mg IV daily on 09/01 and Flagyl 250 mg IV q8h - Patient remains afebrile w/o leukocytosis, negative Procal, negative CRP, lactate wnl - Positive for Influenza A on arrival, s/p 1L NS in ED, blood cultures pending - CT Chest indicating scattered opacities c/w PNA vs aspiration pneumonitis, small left/trace right pleural effusions, and enlarged mediastinal LN - Continue supportive care with Guanfacine and Tylenol --- Flu A: Continue Tamiflu 75 mg PO BID, continue Prednisone 50 mg GT daily --- PNA: Add Vancomycin (Gram + Coverage for MRSA), Continue Cefepime (Gram - Coverage), Discontinue Metronidazole (Anaerobic Coverage, likely no benefit for asp. PNA) Respiratory Distress | New Oxygen Requirement - Patient not on oxygen at baseline, now requiring 4L Via Oxymask, vitals otherwise stable - Ongoing labored breathing on examination - Continue Levalbuterol nebulizers Q4h round the clock - Goal SpO2 >94% - ABG w/o evidence of respiratory failure --- Continue to support oxygenation w/ Oxymask, as surrogate for pulmonary toilet (patient unable to participate); continue nebulizers Q4h scheduled w/ vibration vest CHF - Clinically appearing dry - BNP elevation to 141 --- Clinical picture stable from HF perspective, continue to monitor fluid status Feeding Tube - Continue aspiration precautions - Continue full nutrition through peg-tube (Nutren 2.0) - Continue PEG care q4h w/ tube feeding water flush 100 mL @ 0900, 1400, and 1900 - Nutrition consulted, appreciate recommendations Myelodysplasia (myelodysplastic syndrome) - Chronic; follows with hematology; he is around his baseline hemoglobin Microcephaly: - Chronic; noted Seizure disorder: - Continue clozapine through PEG tube Gout: - Continue allopurinol through PEG tube Disposition: Admit to PCU telemetry Code: DNR/DNI FENGI: Aspiration precautions, nutrition via PEG, Nutrition consulted VTE PPx: Heparin 5000u SQ q12h Admission and Anticipated Discharge Date Admission Date: September 01, 2023 Supervising Physician Co-Signing Physician Notes I personally examined the patient and verified all stark points of history and exam, discussed case, and agree with decision making with Dr Paniagua no HPI or ROS obtainable from pt. vitals noted laying in bed no respiratory distress on mask O2. breathing unlabored no accessory muscle use. Neuro without focal deficits or lateralizing signs. Acute hypoxic respiratory failureappears to be predominantly due to flu, but definitely appears also to have secondary bacterial infection as evidenced by his CT, etc. Given his recent positive MRSA nares, and the high predominance of MRSA being causative bacteria and secondary pneumonias after fluadded vancomycin. No real need for the metronidazoleno air-fluid levels or empyema, even if he is aspirating, the gram-negative coverage should suffice. Will continue on cefepime for now given the severity of his illness. Otherwise as above. DVT prophylaxisheparin subcu Subjective 09/02: Patient remains non-verbal. Minimally responsive to stimuli. No additional HPI. Review of Systems Review of Systems: As per HPI Physical Exam Physical Exam: Gen: Ongoing resp distress, non-verbal, minimally responsive, non-toxic HEENT: dry mucus membranes Neck: supple; no lymphadenopathy; trachea midline Skin: warm, dry, no cyanosis; no rashes, bruising, lesions, or erythema noted CV: RRR; S1/S2 normal; no murmurs/rubs/gallops; pulses intact at PT Lungs: Acutely labored breathing; symmetrical chest wall expansion; no wheezing, crackles heard bilaterally in upper lung espinoza, diminished at bases MSK: no edema noted in the LEs b/l, nonerythematous Neuro: Nonverbal, unresponsive to voice/touch; does not respond to commands Results & Data Results & Data Vital Signs (Past 12 Hours) Vital Signs Temp Pulse Pulse Resp BP Pulse Ox O2 Del Method 09/02/23 07:06 70 20 94 Other 09/02/23 03:00 36.4 C L 64 14 108/58 L 96 Oxymask 09/02/23 02:27 62 14 96 Other 09/02/23 00:00 Oxymask 09/01/23 23:26 71 18 95 Other 09/01/23 23:00 36.5 C 57 L 21 146/75 H 94 Oxymask 09/01/23 22:01 47 L 09/01/23 19:47 51 L 18 96 Other 09/01/23 19:45 36.3 C L 53 L 22 125/63 95 Oxymask O2 Flow Rate 09/02/23 07:06 4 09/02/23 03:00 09/02/23 02:27 4 09/02/23 00:00 4 09/01/23 23:26 4 09/01/23 23:00 09/01/23 22:01 09/01/23 19:47 4 09/01/23 19:45 Resident Activity Tracking Resident Involvement: Resident Care Provided Care Provided: Adult Hospital Medicine (4) Congestive heart failure Heart failure chronicity: acute Heart failure type: unspecified Qualified Code(s): I50.9 - Heart failure, unspecified"
[2023-09-02] MEDS: CEFEPIME 2,000 MG in SYRINGE 0 ML IV SCH ×2 (08:04→22:23)
[2023-09-02] MEDS: FLUTICASONE PROPIONATE NA SPR 16 GM BTL SCH (08:05)
[2023-09-02] MEDS: CHLORHEXIDINE GLUCONATE 0.12% 480 ML MT SCH ×2 (08:05→22:14)
[2023-09-02] MEDS: OSELTAMIVIR PHOSPHATE SUSP 75 MG/12.5 ML UDP PO SCH ×2 (08:05→22:23)
[2023-09-02] MEDS: allopurinoL 100 MG TAB GT SCH ×2 (08:06→22:10)
[2023-09-02] MEDS: BUTT PASTE (ZINC OXIDE 16%) 171 APPLN/57 GM JAR TOP SCH ×2 (08:06→22:12)
[2023-09-02] MEDS: cloZAPine 25 MG TAB PO SCH ×3 (08:06→22:10)
[2023-09-02] MEDS: predniSONE 50 MG TAB GT SCH (08:07)
[2023-09-02] MEDS: HEPARIN SOD 5,000 UNIT/0.5 ML VIAL SQ SCH ×2 (08:07→22:09)
[2023-09-02 08:15] LABS: Potassium 3.7 mmol/L (3.5-5.1)
[2023-09-02] MEDS ORDERED: VANCOMYCIN HCL 1,000 MG in SODIUM CHLORIDE 0.9% 250 ML IV SCH (09:00)
[2023-09-02] MEDS ORDERED: VANCOMYCIN CONSULT ACTIVE PRN (09:00)
[2023-09-02] MEDS ORDERED: TUBE FEEDING WATER FLUSH GT SCH (09:00)
[2023-09-02] MEDS ORDERED: SODIUM CHLORIDE IV SCH (09:00)
[2023-09-02] MEDS ORDERED: VANCOMYCIN HCL 1,750 MG in SODIUM CHLORIDE 0.9% 500 ML IV ONE (09:15)
[2023-09-02 09:24] LABS: C Reactive Protein < 0.50 mg/dl (0-0.5)
[2023-09-02 09:29] LABS: Base Excess ABG -2.8 mEq/L (-9-1.8); HCO3 ABG 21 mmol/L (19-24); Oxygen Saturation ABG 97.9 % (90-95); PCO2 ABG 32 mmHg (35-46); PO2 ABG 86 mmHg (80-95); pH ABG 7.42 (7.35-7.45)
[2023-09-02 09:43] LABS: Allen Test Pos (Pos)
[2023-09-02] MEDS ORDERED: NUTREN LIQD 2.0 1,000 ML BAG PEG SCH (10:00)
--- NOTE | 2023-09-02 10:01 | CT Scan Report ---
CT OF THE CHEST WITHOUT IV CONTRAST CLINICAL HISTORY: Respiratory distress. Pneumonia. COMPARISON STUDY: Chest radiographs August 14, 2023 and September 01, 2023. CT DOSE: 331.63 mGy.cm TECHNIQUE: Axial images of the chest were obtained without IV contrast. Images were reviewed in the axial, sagittal, and coronal planes. IV contrast was not administered for this examination. Automat ed exposure control was utilized for the study. A dose lowering technique was utilized adhering to t he principles of ALARA. FINDINGS: Mildly enlarged mediastinal lymph nodes are present. Index right paratracheal node on imag e 102 of 225 measures 1.7 x 1 cm. There is mild cardiomegaly. No pericardial effusion is present. The re is a small hiatal hernia. No pneumothorax. Small left and trace right pleural effusions are presen t. Associated bilateral lower lobe dependent airspace opacities are noted. In addition, there are mod erate scattered alveolar opacities throughout the lungs. No central obstructing mass is noted. There are secretions within the right mainstem bronchus as well as segmental bronchi within the right lower lobe. Lungs are suboptimally assessed due to respiratory motion. No cavitation is present. No acute fractures within the bony thorax are present. Visualized portions of the upper abdomen are unremarkab le. IMPRESSION: 1. Scattered alveolar opacities throughout the lungs suggestive of pneumonia or aspiration pneumoniti s. Follow-up chest CT in 3 months to ensure resolution is recommended. 2. Small left and trace right pleural effusions. Associated bilateral lower lobe airspace opacities a lso favor pneumonia or aspiration pneumonitis. 3. Mildly enlarged mediastinal lymph nodes which are likely reactive. These can be assessed on follow -up CT. 4. Mild cardiomegaly. ACT 112: Negative or not required by law. Electronically signed by: Walter Benavdiez M.D. 09/02/2023 9:59 AM
[2023-09-02 11:17] LABS: Appearance Urine Clear (Clear); Bilirubin Urine Negative (Negative); Blood Urine Negative (Negative); Color Urine Yellow; Glucose Urine UA 2+ (Negative); Ketones Urine Negative (Negative); Leukocyte Esterase Urine Negative (Negative); Nitrite Urine Negative (Negative); Protein Urine Negative (Negative); Specific Gravity Urine 1.008 (1.000-1.030); Urobilinogen Urine Negative (Negative); pH Urine 5.5 (4.5-7.5)
[2023-09-02] MEDS: guaiFENesin SUGAR FREE 100 MG/5 ML UDC GT SCH ×3 (12:03→22:08)
[2023-09-02] MEDS: TUBE FEEDING WATER FLUSH PEG SCH ×2 (12:04→23:00)
[2023-09-02] MEDS: NUTREN LIQD 2.0 1,000 ML BAG PEG SCH ×2 (12:04→22:55)
--- NOTE | 2023-09-02 12:52 | Pharmacy Report ---
Pharmacy PK ABX Note - Date of Service September 02, 2023 - Assessment and Plan Assessment 68 year old M receiving vancomycin/cefepime for treatment of superimposed bacterial pneumonia, Flu A +. Positive nasal MRSA swab 08/07/23. Pertinent microbiologic data includes: Blood cultures pending. Recent admission, was being treated with cefepime + flagyl at [facility] for aspiration pneumonia. SCr elevated, had increased during previous admission on vancomycin, monitor closely. Plan Vancomycin * Loading dose: 1750 mg IV x 1 * Maintenance dose: 1000 mg IV every 24 hours * Regimen is predicted to achieve target AUC/TAYLOR of 400-600 mg/L.hr * Random level ordered or 09/03 @1200 Pharmacy will continue to follow and will adjust dose/frequency as necessary. Thank you. Pharmacy has transitioned to AUC monitoring for vancomycin. AUC/TAYLOR is the preferred PK/PD target and is associated with decreased risk of nephrotoxicity compared to traditional trough targets.
--- NOTE | 2023-09-02 17:27 | Billing Data ---
Date of Service September 02, 2023 Coding Level of Care Code 17060 SUB INP/OBS CARE
[2023-09-02] MEDS: ACETAMINOPHEN 1,000 MG/100 ML VIAL IV PRN (22:02)
[2023-09-02] MEDS: OSELTAMIVIR PHOSPHATE SUSP 30 MG/5 ML UDP PO SCH (22:09)
[2023-09-02] MEDS: cloZAPine 100 MG TAB PO SCH (22:13)
[2023-09-03] MEDS ORDERED: VANCOMYCIN HCL 1,000 MG in SODIUM CHLORIDE 0.9% 250 ML IV SCH
[2023-09-03] MEDS ORDERED: KETOROLAC TROMETHAMINE 15 MG/ML VIAL IV ONE (02:18)
[2023-09-03] MEDS: LEVALBUTEROL 1.25 MG/3 ML NEB INH SCH ×5 (03:28→19:41)
[2023-09-03] MEDS: ACETAMINOPHEN 1,000 MG/100 ML VIAL IV PRN (06:27)
[2023-09-03 07:46] LABS: Hemoglobin 9.8 g/dl (14.0-18.0); Mean Corpuscular Hemoglobin 33.1 pg (25.0-34.0); Mean Corpuscular Hgb Conc 32.7 g/dL (32.0-36.0); Mean Corpuscular Volume 101.4 fL (80.0-100.0); Mean Platelet Volume 12.8 fL (9.4-12.4); Nucleated RBC # (auto) 0.07 K/uL (0.00-0.12); Nucleated RBC % (auto) 0.9 %; Platelet Count 138 K/uL (130-400); RDW Coefficient of Variation 14.8 % (11.5-14.5); RDW Standard Deviation 53.9 fL (36.4-46.3); Red Blood Count 2.96 M/uL (4.70-6.10); White Blood Count 7.94 K/ul (4.8-10.8)
[2023-09-03 07:59] LABS: Anion Gap 6 (3-11); BUN Creatinine Ratio 59.6 (10-20); Blood Urea Nitrogen 81 mg/dl (6-23); Carbon Dioxide 21 mmol/L (21-32); Chloride 124 mmol/L (98-107); Creatinine Clr Calc Pharmacy 43.5 ml/min; Est GFR (African American) 61.5 ml/min; Est GFR (Non-African American) 53.1 ml/min; Glucose 183 mg/dl (70-99(Fasting)); Sodium 151 mmol/L (136-145)
[2023-09-03] MEDS: NUTREN LIQD 2.0 1,000 ML BAG PEG SCH ×2 (09:00→15:13)
--- NOTE | 2023-09-03 09:32 | Hospitalist Progress Note ---
"Date of Service September 03, 2023 Assessment & Plan (1) Influenza A: (2) Pneumonia: (3) Uses feeding tube: (4) Congestive heart failure: (5) Myelodysplasia (myelodysplastic syndrome): (6) Microcephaly: (7) Seizure disorder: (8) Gout: Plan 68 yo male with PMHx of CHF, myelodysplastic syndrome, chronic feeding tube use, microcephaly/intellectual disability/seizure disorder, esophageal dyskinesia, and gout who presented from [facility] with worsening sob/dyspnea. Influenza A | ?Bacterial PNA (likely MRSA) -Recent [facility] admission from 08/07 - 08/16 for ARF and aspiration pneumonitis. Was discharged back to [facility]. Per report, on 08/29, [facility] suspected once again aspiration pneumonitis and started treatment with solumedrol IV, cefepime, and flagyl. With worsening symptoms, he presented to [facility] on 09/01 for admission. -on admission, tested +influenza A; afebrile, no leukocytosis, neg procal, neg CRP -CT Chest: scattered opacities suggestive of PNA vs aspiration pneumonitis and small bilateral pleural effusions. Follow-up chest CT in 3 months to ensure resolution is recommended -blood cx neg -MRSA nares (08/07) positive -continue guaifenesin, tylenol --- Flu A: Cont. Tamiflu. Will discontinue prednisone. --- PNA: low suspicion at this time, d/c vanc and cefepime. Will cont. MRSA/atypical coverage with doxycycline. Respiratory Distress | New Oxygen Requirement - Patient not on oxygen at baseline. Oxygen requirement improving. - Ongoing labored breathing on examination - ABG w/o evidence of respiratory failure - Cont. Levalbuterol nebulizers [facility], as surrogate for pulmonary toilet (patient unable to participate) Hypernatremia -Na 151. Likely hyperosmolar hyponatremia due to intravascular volume depletion as this occurred during previous hospitalization, clinically appears dry. -D5w x1 bag, reevaluate this afternoon CHF, chronic -grade 1 diastolic, on admission BNP 140s. Monitor fluid status. Clinically appearing dry. Feeding Tube - Continue aspiration precautions - Continue full nutrition through peg-tube (Nutren 2.0) - Continue PEG care q4h w/ tube feeding water flush 100 mL @ 0900, 1400, and 1900 - Nutrition consulted, appreciate recs Myelodysplasia (myelodysplastic syndrome), chronic - follows with hematology, Hgb stable Seizure disorder: - Continue clozapine through PEG tube Gout: - Continue allopurinol through PEG tube Dispo: PCU Code: DNR/DNI FEN/GI: nutrition via PEG VTE PPx: Heparin SQ Admission and Anticipated Discharge Date Admission Date: September 01, 2023 Supervising Physician Co-Signing Physician Notes I personally examined the patient and verified all stark points of history and exam, discussed case, and agree with decision making with Dr Huynh no HPI or ROS obtainable from pt. vitals noted laying in bed no respiratory distress. breathing unlabored no accessory muscle use. Neuro without focal deficits or lateralizing signs. Acute hypoxic respiratory failureappears to be predominantly due to flu, but possibilty appears also to have secondary bacterial infection as evidenced by his CT, etc. Given his recent positive MRSA nares, and the high predominance of MRSA being causative bacteria and secondary pneumonia. Discussed with pulmonary as yuliyaide, reviewed images, will recommend 5-7 days of antibiotics to complete with doxycycline. DVT prophylaxisheparin subcu Subjective Patient seen at bedside. Sleeping comfortably, snoring. He is nonverbal and with intellectual disability. Review of Systems Review of Systems: All systems reviewed & are unremarkable except as noted in HPI & below Physical Exam Physical Exam: Gen: mild respiratory distress, snoring/mouth breathing, nonverbal, non-toxic appearing HEENT: dry mucus membranes Neck: supple, no lymphadenopathy, trachea midline Skin: warm, dry, no cyanosis CV: RRR. no murmurs/rubs/gallops, 2+ distal peripheral pulses. Lungs: mild labored breathing, symmetrical chest wall expansion, no wheezing/rales/rhonchi MSK: no edema noted in the LEs b/l, nonerythematous Abdomen: Soft and nondistended.No guarding. Neuro: Nonverbal, does not respond to commands Results & Data Results & Data Vital Signs (Past 12 Hours) Vital Signs Temp Pulse Pulse Resp BP Pulse Ox O2 Del Method 09/03/23 08:01 37.5 C 77 18 135/65 91 Nasal Cannula 09/03/23 07:41 88 09/03/23 07:11 84 18 93 Nasal Cannula 09/03/23 03:28 80 20 92 Nasal Cannula 09/03/23 03:00 36.6 C 83 26 H 163/61 H 92 Nasal Cannula 09/02/23 23:04 86 20 94 Nasal Cannula 09/02/23 23:00 36.8 C 69 23 125/54 L 99 Nasal Cannula 09/02/23 22:30 Nasal Cannula 09/02/23 22:01 78 O2 Flow Rate 09/03/23 08:01 3 09/03/23 07:41 09/03/23 07:11 3 09/03/23 03:28 3 09/03/23 03:00 09/02/23 23:04 3 09/02/23 23:00 09/02/23 22:30 4 09/02/23 22:01 Laboratory Results 09/03/23 09/03/23 09/02/23 Range/Units 08:38 07:19 10:50 WBC 7.94 (4.8-10.8) K/ul RBC 2.96 L (4.70-6.10) M/uL Hgb 9.8 L (14.0-18.0) g/dl Hct 30.0 L (42.0-52.0) % MCV 101.4 H (80.0-100.0) fL MCH 33.1 (25.0-34.0) pg MCHC 32.7 (32.0-36.0) g/dL RDW Std Deviation 53.9 H (36.4-46.3) fL RDW Coeff of Isaac 14.8 H (11.5-14.5) % Plt Count 138 (130-400) K/uL MPV 12.8 H (9.4-12.4) fL Absolute Nucleated RBC 0.07 (0.00-0.12) K/uL Nucleated RBC % (auto) 0.9 % Marlon Test (Pos) Oxygen Given Sodium 151 H (136-145) mmol/L Potassium 3.6 TNP Chloride 124 H (98-107) mmol/L Carbon Dioxide 21 (21-32) mmol/L Anion Gap 6 (3-11) BUN 81 H D (6-23) mg/dl Creatinine 1.36 (0.6-1.4) mg/dl Est Cr Clr Drug Dosing 43.5 ml/min Est GFR ( Amer) 61.5 ml/min Est GFR (Non-Af Amer) 53.1 ml/min BUN/Creatinine Ratio 59.6 H (10-20) Glucose 183 H (70-99(Fasting)) mg/dl Calcium 8.0 L (8.6-10.3) mg/dl Urine Color Yellow Urine Appearance Clear (Clear) Urine pH 5.5 (4.5-7.5) Ur Specific [place] 1.008 (1.000-1.030) Urine Protein Negative (Negative) Urine Glucose (UA) 2+ H (Negative) Urine Ketones Negative (Negative) Urine Blood Negative (Negative) Urine Nitrite Negative (Negative) Urine Bilirubin Negative (Negative) Urine Urobilinogen Negative (Negative) Ur Leukocyte Esterase Negative (Negative) 09/02/23 Range/Units 09:12 WBC (4.8-10.8) K/ul RBC (4.70-6.10) M/uL Hgb (14.0-18.0) g/dl Hct (42.0-52.0) % MCV (80.0-100.0) fL MCH (25.0-34.0) pg MCHC (32.0-36.0) g/dL RDW Std Deviation (36.4-46.3) fL RDW Coeff of Isaac (11.5-14.5) % Plt Count (130-400) K/uL MPV (9.4-12.4) fL Absolute Nucleated RBC (0.00-0.12) K/uL Nucleated RBC % (auto) % Marlon Test Pos (Pos) Oxygen Given 7l Sodium (136-145) mmol/L Potassium Chloride (98-107) mmol/L Carbon Dioxide (21-32) mmol/L Anion Gap (3-11) BUN (6-23) mg/dl Creatinine (0.6-1.4) mg/dl Est Cr Clr Drug Dosing ml/min Est GFR ( Amer) ml/min Est GFR (Non-Af Amer) ml/min BUN/Creatinine Ratio (10-20) Glucose (70-99(Fasting)) mg/dl Calcium (8.6-10.3) mg/dl Urine Color Urine Appearance (Clear) Urine pH (4.5-7.5) Ur Specific [place] (1.000-1.030) Urine Protein (Negative) Urine Glucose (UA) (Negative) Urine Ketones (Negative) Urine Blood (Negative) Urine Nitrite (Negative) Urine Bilirubin (Negative) Urine Urobilinogen (Negative) Ur Leukocyte Esterase (Negative) Resident Activity Tracking Resident Involvement: Resident Care Provided Care Provided: Adult Hospital Medicine (4) Congestive heart failure Heart failure chronicity: acute Heart failure type: unspecified Qualified Code(s): I50.9 - Heart failure, unspecified"
[2023-09-03 09:39] LABS: Basophils # (auto) 0.05 K/uL (0.00-0.20); Basophils % (auto) 0.6 %; Immature Granulocytes # (auto) 0.43 K/uL (0.01-0.20); Immature Granulocytes % (auto) 5.4 %; Lymphocytes # (auto) 0.89 K/uL (1.20-3.40); Lymphocytes % (auto) 11.2 %; Monocytes # (auto) 1.09 K/uL (0.11-0.59); Monocytes % (auto) 13.7 %; Neutrophils # (auto) 5.48 K/uL (1.40-6.50); Neutrophils % (auto) 69.1 %
[2023-09-03] MEDS: HEPARIN SOD 5,000 UNIT/0.5 ML VIAL SQ SCH ×2 (09:54→20:18)
[2023-09-03] MEDS: OSELTAMIVIR PHOSPHATE SUSP 30 MG/5 ML UDP PO SCH ×2 (09:54→21:27)
[2023-09-03] MEDS: FLUTICASONE PROPIONATE NA SPR 16 GM BTL SCH (09:54)
[2023-09-03] MEDS: cloZAPine 25 MG TAB PO SCH ×2 (09:55→20:17)
[2023-09-03] MEDS: predniSONE 50 MG TAB GT SCH (09:55)
[2023-09-03] MEDS: allopurinoL 100 MG TAB GT SCH ×2 (09:55→20:17)
[2023-09-03] MEDS: TUBE FEEDING WATER FLUSH PEG SCH ×3 (09:56→21:27)
[2023-09-03] MEDS: BUTT PASTE (ZINC OXIDE 16%) 171 APPLN/57 GM JAR TOP SCH ×2 (09:56→20:17)
[2023-09-03] MEDS: CHLORHEXIDINE GLUCONATE 0.12% 480 ML MT SCH ×2 (09:57→20:18)
[2023-09-03] MEDS: guaiFENesin SUGAR FREE 100 MG/5 ML UDC GT SCH ×3 (10:06→22:53)
[2023-09-03] MEDS: CEFEPIME 2,000 MG in SYRINGE 0 ML IV SCH (10:06)
[2023-09-03] MEDS ORDERED: DEXTROSE 5% 1,000 ML IV SCH (11:15)
--- NOTE | 2023-09-03 13:51 | Pharmacy Report ---
Pharmacy PK ABX Note - Date of Service September 03, 2023 - Assessment and Plan Assessment 09/03 Random level 22.2 mcg/ml, current dosing is predicting achievement of target AUC/TAYLOR. Will continue current dosing and get level closer to steady state. 09/02 68 year old M receiving vancomycin/cefepime for treatment of superimposed bacterial pneumonia, Flu A +. Positive nasal MRSA swab 08/07/23. Pertinent microbiologic data includes: Blood cultures pending. Recent admission, was being treated with cefepime + flagyl at [facility] for aspiration pneumonia. SCr elevated, had increased during previous admission on vancomycin, monitor closely. Plan Vancomycin * Loading dose: 1750 mg IV x 1 * Continue Maintenance dose: 1000 mg IV every 24 hours * Regimen is predicted to achieve target AUC/TAYLOR of 400-600 mg/L.hr * Random level to be ordered in 2-3 days or with renal changes Pharmacy will continue to follow and will adjust dose/frequency as necessary. Thank you. Pharmacy has transitioned to AUC monitoring for vancomycin. AUC/TAYLOR is the preferred PK/PD target and is associated with decreased risk of nephrotoxicity compared to traditional trough targets.
[2023-09-03] MEDS: ACETAMINOPHEN 1,000 MG/100 ML VIAL IV SCH ×2 (15:20→22:53)
[2023-09-03 16:00] LABS: BUN Creatinine Ratio 61.2 (10-20); Creatinine Clr Calc Pharmacy 48.9 ml/min; Est GFR (African American) 70.9 ml/min; Est GFR (Non-African American) 61.1 ml/min; Potassium 3.9 mmol/L (3.5-5.1)
[2023-09-03] MEDS ORDERED: SODIUM CHLORIDE 0.45 % 1,000 ML IV SCH (16:30)
[2023-09-03] MEDS ORDERED: LANTUS PER UNIT CHARGE SQ STA (16:42)
[2023-09-03] MEDS ORDERED: GLUCOSE 40% GEL 15 GM TUBE PO PRN (16:42)
[2023-09-03] MEDS ORDERED: DEXTROSE 50% 50 ML SYRINGE IV PRN (16:42)
[2023-09-03] MEDS ORDERED: CARBOHYDRATES FOR HYPOGLYCEMIA PO PRN (16:42)
[2023-09-03] MEDS ORDERED: GLUCOSE 10 TAB/TUBE PO PRN (16:42)
[2023-09-03] MEDS ORDERED: GLUCAGON FOR INJ 1 MG VIAL SQ PRN (16:42)
[2023-09-03] MEDS: INSULIN ASPART PER UNIT CHARGE SC SCH ×2 (16:55→21:45)
[2023-09-03] MEDS ORDERED: LEVALBUTEROL 1.25 MG/3 ML NEB ONE (17:53)
[2023-09-03] MEDS: cloZAPine 100 MG TAB PO SCH (20:17)
[2023-09-03] MEDS: DOXYCYCLINE HYCLATE 100 MG in DEXTROSE 5% MINI-B 100 ML IV SCH (21:26)
[2023-09-04] MEDS: LEVALBUTEROL 1.25 MG/3 ML NEB INH SCH ×4 (00:24→19:30)
[2023-09-04] MEDS ORDERED: KETOROLAC TROMETHAMINE 15 MG/ML VIAL IV ONE (03:03)
[2023-09-04] MEDS: ACETAMINOPHEN 1,000 MG/100 ML VIAL IV SCH ×3 (06:45→21:00)
[2023-09-04 07:18] LABS: Hematocrit (blood only) 28.6 % (42.0-52.0); Mean Corpuscular Hemoglobin 32.3 pg (25.0-34.0); Mean Corpuscular Hgb Conc 31.5 g/dL (32.0-36.0); Mean Corpuscular Volume 102.5 fL (80.0-100.0); Mean Platelet Volume 12.9 fL (9.4-12.4); Nucleated RBC # (auto) 0.06 K/uL (0.00-0.12); Nucleated RBC % (auto) 0.7 %; Platelet Count 137 K/uL (130-400); RDW Coefficient of Variation 15.4 % (11.5-14.5); RDW Standard Deviation 57.5 fL (36.4-46.3); Red Blood Count 2.79 M/uL (4.70-6.10); White Blood Count 8.17 K/ul (4.8-10.8)
[2023-09-04 07:37] LABS: BUN Creatinine Ratio 55.4 (10-20); C Reactive Protein 0.52 mg/dl (0-0.5); Calcium 8.1 mg/dl (8.6-10.3); Creatinine Clr Calc Pharmacy 57.3 ml/min; Est GFR (African American) 77.8 ml/min; Est GFR (Non-African American) 67.1 ml/min; Magnesium 2.9 mg/dl (1.7-2.4); Potassium 3.7 mmol/L (3.5-5.1)
[2023-09-04] MEDS: INSULIN ASPART PER UNIT CHARGE SC SCH ×4 (08:10→21:00)
[2023-09-04 08:41] LABS: Basophils # (auto) 0.04 K/uL (0.00-0.20); Basophils % (auto) 0.5 %; Immature Granulocytes # (auto) 0.42 K/uL (0.01-0.20); Immature Granulocytes % (auto) 5.1 %; Lymphocytes # (auto) 0.87 K/uL (1.20-3.40); Lymphocytes % (auto) 10.6 %; Monocytes % (auto) 12.2 %; Neutrophils # (auto) 5.84 K/uL (1.40-6.50); Neutrophils % (auto) 71.6 %; RBC Morphology Unremarkable
--- NOTE | 2023-09-04 09:23 | Billing Data ---
Date of Service September 03, 2023 Coding Level of Care Code 39221 SUB INP/OBS CARE
[2023-09-04] MEDS: cloZAPine 25 MG TAB PO SCH ×2 (09:33→21:10)
[2023-09-04] MEDS: guaiFENesin SUGAR FREE 100 MG/5 ML UDC GT SCH ×3 (09:36→21:03)
[2023-09-04] MEDS: allopurinoL 100 MG TAB GT SCH ×2 (09:36→21:09)
[2023-09-04] MEDS: BUTT PASTE (ZINC OXIDE 16%) 171 APPLN/57 GM JAR TOP SCH ×2 (09:37→21:01)
[2023-09-04] MEDS: HEPARIN SOD 5,000 UNIT/0.5 ML VIAL SQ SCH ×2 (09:37→21:11)
[2023-09-04] MEDS: TUBE FEEDING WATER FLUSH PEG SCH ×3 (09:37→21:01)
[2023-09-04] MEDS: FLUTICASONE PROPIONATE NA SPR 16 GM BTL SCH (09:37)
[2023-09-04] MEDS: CHLORHEXIDINE GLUCONATE 0.12% 480 ML MT SCH ×2 (09:37→21:01)
[2023-09-04] MEDS: NUTREN LIQD 2.0 1,000 ML BAG PEG SCH ×3 (09:45→17:33)
[2023-09-04] MEDS: DOXYCYCLINE HYCLATE 100 MG in DEXTROSE 5% MINI-B 100 ML IV SCH ×2 (09:50→21:12)
--- NOTE | 2023-09-04 10:15 | Hospitalist Progress Note ---
Date of Service September 04, 2023 Assessment & Plan (1) Influenza A: (2) Pneumonia: (3) Uses feeding tube: (4) Congestive heart failure: (5) Myelodysplasia (myelodysplastic syndrome): (6) Microcephaly: (7) Seizure disorder: (8) Gout: Plan 68 yo male with PMHx of CHF, myelodysplastic syndrome, chronic feeding tube use, microcephaly/intellectual disability/seizure disorder, esophageal dyskinesia, and gout who presented from [facility] with worsening sob/dyspnea. Influenza A -Recent [facility] admission from 08/07 - 08/16 for ARF and aspiration pneumonitis. Was discharged back to [facility]. Per report, on 08/29, [facility] suspected once again aspiration pneumonitis and started treatment with solumedrol IV, cefepime, and flagyl. With worsening symptoms, he presented to [facility] on 09/01 for admission. -on admission, tested +influenza A; afebrile, no leukocytosis, neg procal, neg CRP -CT Chest: scattered opacities suggestive of PNA vs aspiration pneumonitis and small bilateral pleural effusions. Follow-up chest CT in 3 months to ensure resolution is recommended. -blood cx neg -MRSA nares (08/07) positive -continue guaifenesin, tylenol --- Flu A: Cont. Tamiflu. Discontinued prednisone (09/03). --- PNA: low suspicion at this time, d/c vanc and cefepime. continue doxycycline (thru 09/08). Acute hypoxic resp failure - Patient not on oxygen at baseline. Continue to ween supplemental O2. - Ongoing labored breathing on examination but improved - ABG w/o evidence of respiratory failure - Cont. Levalbuterol nebulizers [facility], as surrogate for pulmonary toilet (patient unable to participate) Hypernatremia -Na 153. Likely hyperosmolar hyponatremia due to intravascular volume depletion as this occurred during previous hospitalization. Now clinically appears euvolemic s/p 1L 1/2NSS. -monitor for now, recheck bmp in am CHF, chronic -grade 1 diastolic, on admission BNP 140s. Monitor fluid status. Appears euvolemic. Feeding Tube - Continue aspiration precautions - Continue full nutrition through peg-tube (Nutren 2.0) - Continue PEG care q4h w/ tube feeding water flush 100 mL @ 0900, 1400, and 1900 - Nutrition consulted, appreciate recs Myelodysplasia (myelodysplastic syndrome), chronic - follows with hematology, Hgb stable Seizure disorder: - Continue clozapine through PEG tube Gout: - Continue allopurinol through PEG tube Code: DNR/DNI FEN/GI: nutrition via PEG VTE ppx: Heparin SQ Dispo: PCU Admission and Anticipated Discharge Date Admission Date: September 01, 2023 Supervising Physician Co-Signing Physician Notes Attending Physician Supervision Note: I independently interviewed and examined the patient and verified the stark history and physical, reviewed labs and image studies and agree with findings and care plan noted above. Subjective Patient seen at bedside. More alert than yesterday but still with labored breathing. He is nonverbal and with intellectual disability. 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 Review of Systems Review of Systems: All systems reviewed & are unremarkable except as noted in HPI & below Physical Exam Physical Exam: Gen: mild respiratory distress, nonverbal, non-toxic appearing HEENT: moist mucus membranes Neck: supple, no lymphadenopathy, trachea midline Skin: warm, dry, no cyanosis CV: RRR. no murmurs/rubs/gallops, 2+ distal peripheral pulses. Lungs: mild labored breathing, symmetrical chest wall expansion, no wheezing/rales/rhonchi MSK: no edema noted in the LEs b/l, nonerythematous Abdomen: Soft and nondistended.No guarding. Neuro: Nonverbal, does not respond to commands Results & Data Results & Data Vital Signs (Past 12 Hours) Vital Signs Temp Pulse Pulse Resp BP Pulse Ox O2 Del Method 09/04/23 08:13 37.0 C 89 19 160/63 H 90 Nasal Cannula 09/04/23 07:19 83 20 93 Nasal Cannula 09/04/23 03:00 37.5 C 89 19 155/55 H 94 Nasal Cannula 09/04/23 00:25 90 20 95 Nasal Cannula 09/04/23 00:00 86 09/03/23 23:48 36.9 C 86 17 155/66 H 94 Nasal Cannula O2 Flow Rate 09/04/23 08:13 09/04/23 07:19 3 09/04/23 03:00 09/04/23 00:25 3 09/04/23 00:00 09/03/23 23:48 3 Laboratory Results 09/04/23 09/04/23 09/03/23 Range/Units 07:33 06:24 Unknown WBC 8.17 (4.8-10.8) K/ul RBC 2.79 L (4.70-6.10) M/uL Hgb 9.0 L (14.0-18.0) g/dl Hct 28.6 L (42.0-52.0) % MCV 102.5 H (80.0-100.0) fL MCH 32.3 (25.0-34.0) pg MCHC 31.5 L (32.0-36.0) g/dL RDW Std Deviation 57.5 H (36.4-46.3) fL RDW Coeff of Isaac 15.4 H (11.5-14.5) % Plt Count 137 (130-400) K/uL MPV 12.9 H (9.4-12.4) fL Immature Gran % (Auto) 5.1 % Neut % (Auto) 71.6 % Lymph % (Auto) 10.6 % [place] % (Auto) 12.2 % Eos % (Auto) 0.0 % Baso % (Auto) 0.5 % Neut # (Auto) 5.84 (1.40-6.50) K/uL Lymph # (Auto) 0.87 L (1.20-3.40) K/uL [place] # (Auto) 1.00 H (0.11-0.59) K/uL Eos # (Auto) 0.00 (0.00-0.50) K/uL Baso # (Auto) 0.04 (0.00-0.20) K/uL Immature Gran # (Auto) 0.42 H (0.01-0.20) K/uL Absolute Nucleated RBC 0.06 (0.00-0.12) K/uL Nucleated RBC % (auto) 0.7 % RBC Morphology Unremarkable Sodium 153 H (136-145) mmol/L Potassium 3.7 (3.5-5.1) mmol/L Chloride 126 H (98-107) mmol/L Carbon Dioxide 23 (21-32) mmol/L Anion Gap 4 (3-11) BUN 62 H (6-23) mg/dl Creatinine 1.12 (0.6-1.4) mg/dl Est Cr Clr Drug Dosing 57.3 ml/min Est GFR ( Amer) 77.8 ml/min Est GFR (Non-Af Amer) 67.1 ml/min BUN/Creatinine Ratio 55.4 H (10-20) Glucose 171 H (70-99(Fasting)) mg/dl POC Glucose 157 H (70-99) mg/dl Calcium 8.1 L (8.6-10.3) mg/dl Magnesium 2.9 H (1.7-2.4) mg/dl C-Reactive Protein 0.52 H (0-0.5) mg/dl Stl C. diff Tox B Gene Negative Cdiff Gene (Neg) Random Vancomycin (10-20) mcg/ml 09/03/23 09/03/23 09/03/23 Range/Units 20:39 15:16 12:21 WBC (4.8-10.8) K/ul RBC (4.70-6.10) M/uL Hgb (14.0-18.0) g/dl Hct (42.0-52.0) % MCV (80.0-100.0) fL MCH (25.0-34.0) pg MCHC (32.0-36.0) g/dL RDW Std Deviation (36.4-46.3) fL RDW Coeff of Isaac (11.5-14.5) % Plt Count (130-400) K/uL MPV (9.4-12.4) fL Immature Gran % (Auto) % Neut % (Auto) % Lymph % (Auto) % [place] % (Auto) % Eos % (Auto) % Baso % (Auto) % Neut # (Auto) (1.40-6.50) K/uL Lymph # (Auto) (1.20-3.40) K/uL [place] # (Auto) (0.11-0.59) K/uL Eos # (Auto) (0.00-0.50) K/uL Baso # (Auto) (0.00-0.20) K/uL Immature Gran # (Auto) (0.01-0.20) K/uL Absolute Nucleated RBC (0.00-0.12) K/uL Nucleated RBC % (auto) % RBC Morphology Sodium 149 H (136-145) mmol/L Potassium 3.9 (3.5-5.1) mmol/L Chloride 123 H (98-107) mmol/L Carbon Dioxide 19 L (21-32) mmol/L Anion Gap 7 (3-11) BUN 74 H (6-23) mg/dl Creatinine 1.21 (0.6-1.4) mg/dl Est Cr Clr Drug Dosing 48.9 ml/min Est GFR ( Amer) 70.9 ml/min Est GFR (Non-Af Amer) 61.1 ml/min BUN/Creatinine Ratio 61.2 H (10-20) Glucose 435 H* (70-99(Fasting)) mg/dl POC Glucose 411 H* (70-99) mg/dl Calcium 8.0 L (8.6-10.3) mg/dl Magnesium (1.7-2.4) mg/dl C-Reactive Protein (0-0.5) mg/dl Stl C. diff Tox B Gene (Neg) Random Vancomycin 22.2 H (10-20) mcg/ml Resident Activity Tracking Resident Involvement: Resident Care Provided Care Provided: Adult Hospital Medicine (4) Congestive heart failure Heart failure chronicity: acute Heart failure type: unspecified Qualified Code(s): I50.9 - Heart failure, unspecified
[2023-09-04] MEDS: OSELTAMIVIR PHOSPHATE SUSP 30 MG/5 ML UDP PO SCH ×2 (10:56→22:40)
[2023-09-04] MEDS: cloZAPine 100 MG TAB PO SCH (21:09)
[2023-09-04] MEDS ORDERED: KETOROLAC TROMETHAMINE 15 MG/ML VIAL IV PRN (22:41)
[2023-09-05] MEDS: LEVALBUTEROL 1.25 MG/3 ML NEB INH SCH ×4 (00:55→19:26)
[2023-09-05] MEDS ORDERED: KETOROLAC TROMETHAMINE 15 MG/ML VIAL IV ONE (04:11)
[2023-09-05] MEDS: ACETAMINOPHEN 1,000 MG/100 ML VIAL IV SCH ×3 (06:35→20:36)
--- NOTE | 2023-09-05 07:04 | Hospitalist Progress Note ---
"Date of Service September 05, 2023 Assessment & Plan (1) Influenza A: (2) Pneumonia: (3) Uses feeding tube: (4) Congestive heart failure: (5) Myelodysplasia (myelodysplastic syndrome): (6) Microcephaly: (7) Seizure disorder: (8) Gout: Plan 68 yo male with PMHx of CHF, myelodysplastic syndrome, chronic feeding tube use, microcephaly/intellectual disability/seizure disorder, esophageal dyskinesia, and gout who presented from [facility] with worsening sob/dyspnea. Influenza A | ?Bacterial PNA (likely MRSA) -Recent [facility] admission from 08/07 - 08/16 for ARF and aspiration pneumonitis. Was discharged back to [facility]. Per report, on 08/29, [facility] suspected once again aspiration pneumonitis and started treatment with solumedrol IV, cefepime, and flagyl. With worsening symptoms, he presented to [facility] on 09/01 for admission. -on admission, tested +influenza A; afebrile, no leukocytosis, neg procal, neg CRP -CT Chest: scattered opacities suggestive of PNA vs aspiration pneumonitis and small bilateral pleural effusions. Follow-up chest CT in 3 months to ensure resolution is recommended. -blood cx neg -MRSA nares (08/07) positive -continue guaifenesin, tylenol --- Flu A: Cont. Tamiflu. Discontinued prednisone (09/03). --- PNA: low suspicion at this time, d/c vanc and cefepime. Will cont. MRSA/atypical coverage with doxycycline (thru 09/08). Respiratory Distress | New Oxygen Requirement - Patient not on oxygen at baseline - ABG w/o evidence of respiratory failure - Cont. Levalbuterol nebulizers [facility], as surrogate for pulmonary toilet (patient unable to participate) --- Continue to wean supplemental O2, breathing non-labored Hypernatremia (158) - Likely hyperosmolar hyponatremia due to intravascular volume depletion as this occurred during previous hospitalization. - Clinically appears euvolemic s/p 1L 1/2NSS 09/03 --- Na level acutely rising 09/05, tx w/ D5 @ 400 mL/hr w/ 3 hour BMP checks, continue insulin for mgmt of hyperglycemia CHF, chronic - Grade 1 diastolic, on admission BNP 140s. Monitor fluid status. Appears euvolemic. Feeding Tube - Continue aspiration precautions - Continue full nutrition through peg-tube (Nutren 2.0) - Continue PEG care q4h w/ tube feeding water flush 100 mL @ 0900, 1400, and 1900 - Nutrition consulted, appreciate recs --- Increased saline flushes to 300 during hypernatremia/hyperglycemia treatment Myelodysplasia (myelodysplastic syndrome), chronic - Follows with hematology, Hgb stable Seizure disorder: - Continue clozapine through PEG tube Gout: - Continue allopurinol through PEG tube Code: DNR/DNI FEN/GI: nutrition via PEG VTE ppx: Heparin SQ Dispo: PCU Admission and Anticipated Discharge Date Admission Date: September 01, 2023 Supervising Physician Co-Signing Physician Notes Attending Physician Supervision Note: I independently interviewed and examined the patient and verified the stark history and physical, reviewed labs and image studies and agree with findings and care plan noted above. Acute hypoxic resp failure - improved. wean oxygen as tolerated. Pneumonia - Imaging consistent with aspiration. Influenza +. concern of secondary bacterial infection will be there. Was initially treated with empiric abx coverage and switched on only doxycycline 08/04. Improving. with PEG tube feeds - at high risk for aspiration - if worsens - consider adding coverage for it. continue tamiflu. continue nebs Hypernatremia - increase free water intake. ?Bipolar ds - on clozapine. Microcephaly with worsening baseline function Goals of care - considering recurrent hospitalization and overall poor quality of life, Spoke to Yahaira with [employer] and patient's Guardian Oralia - patient was at [facility] recently and was recommended discharge home with hospice. Discussed with case management about setting up hospice at home. Heparin SQ Subjective 09/05: Patient evaluated at bedside. Breathing unlabored. Aid notes that he continues to improve, but is not yet at baseline. More alert today, but remains non-verbal in setting of intellectual disability, no additional HPI. Review of Systems Review of Systems: As per HPI Physical Exam Physical Exam: Gen: calm, nonverbal, non-toxic appearing HEENT: moist mucus membranes Neck: supple, no lymphadenopathy, trachea midline Skin: warm, dry, no cyanosis CV: RRR. no murmurs/rubs/gallops, 2+ distal peripheral pulses. Lungs: un-labored breathing, symmetrical chest wall expansion, no wheezing/rales/rhonchi MSK: trace edema noted in the LEs b/l, nonerythematous Abdomen: Soft and nondistended.No guarding. Neuro: Nonverbal, does not respond to commands Results & Data Results & Data Vital Signs (Past 12 Hours) Vital Signs Temp Pulse Pulse Resp BP Pulse Ox O2 Del Method 09/05/23 05:27 36.4 C L 09/05/23 03:40 38.1 C H 86 18 143/88 H 95 Nasal Cannula 09/05/23 00:55 85 18 92 Nasal Cannula 09/04/23 23:55 91 H 09/04/23 22:16 38 C H 90 18 151/63 H 92 Nasal Cannula 09/04/23 22:03 Nasal Cannula 09/04/23 19:48 87 09/04/23 19:41 37.9 C H 88 20 138/60 98 Aerosol Mask 09/04/23 19:31 82 18 92 Nasal Cannula O2 Flow Rate 09/05/23 05:27 09/05/23 03:40 3 09/05/23 00:55 3 09/04/23 23:55 09/04/23 22:16 3 09/04/23 22:03 3 09/04/23 19:48 09/04/23 19:41 3 09/04/23 19:31 3 Resident Activity Tracking Resident Involvement: Resident Care Provided Care Provided: Adult Hospital Medicine (4) Congestive heart failure Heart failure chronicity: acute Heart failure type: unspecified Qualified Code(s): I50.9 - Heart failure, unspecified"
[2023-09-05] MEDS: INSULIN ASPART PER UNIT CHARGE SC SCH ×4 (07:45→20:55)
[2023-09-05 07:58] LABS: Basophils # (auto) 0.03 K/uL (0.00-0.20); Basophils % (auto) 0.3 %; Eosinophils # (auto) 0.01 K/uL (0.00-0.50); Eosinophils % (auto) 0.1 %; Hematocrit (blood only) 28.1 % (42.0-52.0); Hemoglobin 8.9 g/dl (14.0-18.0); Immature Granulocytes # (auto) 0.24 K/uL (0.01-0.20); Immature Granulocytes % (auto) 2.5 %; Lymphocytes # (auto) 1.18 K/uL (1.20-3.40); Lymphocytes % (auto) 12.1 %; Mean Corpuscular Hgb Conc 31.7 g/dL (32.0-36.0); Mean Corpuscular Volume 104.1 fL (80.0-100.0); Mean Platelet Volume 12.9 fL (9.4-12.4); Monocytes # (auto) 0.75 K/uL (0.11-0.59); Monocytes % (auto) 7.7 %; Neutrophils # (auto) 7.58 K/uL (1.40-6.50); Neutrophils % (auto) 77.3 %; Nucleated RBC # (auto) 0.06 K/uL (0.00-0.12); Nucleated RBC % (auto) 0.6 %; Platelet Count 156 K/uL (130-400); RDW Standard Deviation 59.7 fL (36.4-46.3); White Blood Count 9.79 K/ul (4.8-10.8)
[2023-09-05 08:22] LABS: BUN Creatinine Ratio 48.6 (10-20); Creatinine Clr Calc Pharmacy 53.3 ml/min; Est GFR (African American) 78.7 ml/min; Est GFR (Non-African American) 67.9 ml/min; Magnesium 2.6 mg/dl (1.7-2.4)
[2023-09-05] MEDS: NUTREN LIQD 2.0 1,000 ML BAG PEG SCH ×3 (08:29→17:15)
[2023-09-05] MEDS: cloZAPine 25 MG TAB PO SCH ×2 (08:32→20:28)
[2023-09-05] MEDS: allopurinoL 100 MG TAB GT SCH ×2 (08:32→20:26)
[2023-09-05] MEDS: TUBE FEEDING WATER FLUSH PEG SCH ×4 (08:33→20:27)
[2023-09-05] MEDS: HEPARIN SOD 5,000 UNIT/0.5 ML VIAL SQ SCH ×2 (08:33→20:26)
[2023-09-05] MEDS: guaiFENesin SUGAR FREE 100 MG/5 ML UDC GT SCH ×3 (08:33→20:26)
[2023-09-05] MEDS: OSELTAMIVIR PHOSPHATE SUSP 30 MG/5 ML UDP PO SCH ×2 (08:33→20:46)
[2023-09-05] MEDS: BUTT PASTE (ZINC OXIDE 16%) 171 APPLN/57 GM JAR TOP SCH ×2 (08:34→20:35)
[2023-09-05] MEDS: FLUTICASONE PROPIONATE NA SPR 16 GM BTL SCH (08:34)
[2023-09-05] MEDS: CHLORHEXIDINE GLUCONATE 0.12% 480 ML MT SCH ×2 (08:34→20:27)
[2023-09-05] MEDS: DOXYCYCLINE HYCLATE 100 MG in DEXTROSE 5% MINI-B 100 ML IV SCH ×2 (08:45→20:22)
[2023-09-05] MEDS: KETOROLAC TROMETHAMINE 15 MG/ML VIAL IV PRN ×2 (10:34→21:00)
[2023-09-05] MEDS ORDERED: DEXTROSE 5% 1,000 ML IV SCH ×2 (10:45→17:15)
[2023-09-05] MEDS ORDERED: TUBE FEEDING WATER FLUSH PEG SCH (15:00)
[2023-09-05 15:01] LABS: BUN Creatinine Ratio 46.5 (10-20); Calcium 7.8 mg/dl (8.6-10.3); Creatinine Clr Calc Pharmacy 51.9 ml/min; Est GFR (African American) 76.2 ml/min; Est GFR (Non-African American) 65.7 ml/min; Potassium 3.9 mmol/L (3.5-5.1)
[2023-09-05] MEDS: cloZAPine 100 MG TAB PO SCH (20:26)
[2023-09-06] MEDS: TUBE FEEDING WATER FLUSH PEG SCH ×5 (00:24→22:46)
[2023-09-06] MEDS: LEVALBUTEROL 1.25 MG/3 ML NEB INH SCH ×4 (01:17→19:02)
[2023-09-06] MEDS: KETOROLAC TROMETHAMINE 15 MG/ML VIAL IV PRN (05:44)
[2023-09-06] MEDS: ACETAMINOPHEN 1,000 MG/100 ML VIAL IV SCH (05:45)
--- NOTE | 2023-09-06 07:17 | Hospitalist Progress Note ---
"Date of Service September 06, 2023 Assessment & Plan (1) Influenza A: (2) Pneumonia: (3) Uses feeding tube: (4) Congestive heart failure: (5) Myelodysplasia (myelodysplastic syndrome): (6) Microcephaly: (7) Seizure disorder: (8) Gout: Plan 68 yo male with PMHx of CHF, myelodysplastic syndrome, chronic feeding tube use, microcephaly/intellectual disability/seizure disorder, esophageal dyskinesia, and gout who presented from [facility] with worsening sob/dyspnea. Influenza A | ?Bacterial PNA (likely MRSA) -Recent [facility] admission from 08/07 - 08/16 for ARF and aspiration pneumonitis. Was discharged back to [facility]. Per report, on 08/29, [facility] suspected once again aspiration pneumonitis and started treatment with solumedrol IV, cefepime, and flagyl. With worsening symptoms, he presented to [facility] on 09/01 for admission. -on admission, tested +influenza A; afebrile, no leukocytosis, neg procal, neg CRP -CT Chest: scattered opacities suggestive of PNA vs aspiration pneumonitis and small bilateral pleural effusions. Follow-up chest CT in 3 months to ensure resolution is recommended. -blood cx neg -MRSA nares (08/07) positive -continue guaifenesin, tylenol --- Flu A: Cont. Tamiflu. Discontinued prednisone (09/03). --- PNA: Low suspicion for bacterial PNA, d/c vanc and cefepime. Will cont. MRSA/atypical coverage with doxycycline (thru 09/08). Respiratory Distress | New Oxygen Requirement - Patient not on oxygen at baseline - ABG w/o evidence of respiratory failure - Cont. [facility], as [facility] for pulmonary toilet (patient unable to participate) --- Continue to wean supplemental O2 as tolerated (now 2L via NC), breathing non-labored Hypernatremia (158) - Likely hyperosmolar hyponatremia due to intravascular volume depletion as this occurred during previous hospitalization. - Clinically appears euvolemic s/p 1L 1/2NSS 09/03 - Na level acutely rising 09/05, tx w/ D5 @ 400 mL/hr w/ 3 hour BMP checks, continue insulin for mgmt of hyperglycemia --- Na level improved to 147, D5 held, adjusted saline flushes to 300 mL TID in addition to 100 mL Pre/Post feeding flushes (home flushes 100 mL pre/post feed with additional 250 mL TID). Continue to monitor BMP. CHF, chronic - Grade 1 diastolic, on admission BNP 140s. Monitor fluid status. Appears euvolemic. Feeding Tube - Continue aspiration precautions - Continue full nutrition through peg-tube (Nutren 2.0) - Continue saline flushes - Nutrition consulted, appreciate recs Myelodysplasia (myelodysplastic syndrome), chronic - Follows with hematology, Hgb stable Seizure disorder: - Continue clozapine through PEG tube Gout: - Continue allopurinol through PEG tube Code: DNR/DNI FEN/GI: nutrition via PEG VTE ppx: Heparin SQ Dispo: PCU Admission and Anticipated Discharge Date Admission Date: September 01, 2023 Supervising Physician Co-Signing Physician Notes ATTESTATION I also saw the patient and confirmed stark portions of the history and exam. I agree with the impression and plan in the resident documentation, and as summarized below. art museum aide at bedside reports that he was awake earlier today and acting more like himself. EXAM 114/66, 81, 20, 36.7, 96% on nasal cannula 2 L/min. Heart regular rate and rhythm Lungs clear with nonlabored respirations DATA Labs Hemoglobin 7.7 Sodium 147, potassium 3.8, BUN 41, creatinine 0.90 IMPRESSION & PLAN Acute hypoxic respiratory failure Influenza A Pneumonia Complete course of Tamiflu Supportive care Continue home medications Improved with free water, adjustment of saline flushes Monitor Bipolar disease Continue home medications Microcephaly with worsening baseline function As noted before, goals of care discussion with Yahaira (Caro) and patient's Guardian (Oralia), and per recommendation from previous facility, discharged with home hospice once acute illness resolved Additional per resident documentation Subjective 09/06: Increasingly alert today. Aid notes ongoing improvement, working towards baseline. Breathing remains unlabored. Remains non-verbal, but responding to voice with nods and smiles. No additional HPI. Review of Systems Review of Systems: As per HPI Physical Exam Physical Exam: Gen: calm, nonverbal, non-toxic appearing HEENT: moist mucus membranes Neck: supple, no lymphadenopathy, trachea midline Skin: warm, dry, no cyanosis CV: RRR. no murmurs/rubs/gallops, 2+ distal peripheral pulses. Lungs: un-labored breathing, symmetrical chest wall expansion, no wheezing/rales/rhonchi MSK: trace edema noted in the LEs b/l, nonerythematous Abdomen: Soft and nondistended.No guarding. Neuro: Nonverbal, does not respond to commands Results & Data Results & Data Vital Signs (Past 12 Hours) Vital Signs Temp Pulse Pulse Resp BP Pulse Ox O2 Del Method 09/06/23 07:14 85 18 95 Nasal Cannula 09/06/23 03:23 37.6 C H 84 18 147/68 H 95 Oxymask 09/06/23 01:17 83 18 98 Nasal Cannula 09/05/23 22:10 85 09/05/23 22:00 37 C 83 18 133/64 91 Oxymask 09/05/23 20:30 Nasal Cannula 09/05/23 19:48 36.9 C 92 H 18 150/62 H 93 Nasal Cannula 09/05/23 19:26 88 18 95 Nasal Cannula O2 Flow Rate 09/06/23 07:14 3 09/06/23 03:23 3 09/06/23 01:17 3 09/05/23 22:10 09/05/23 22:00 3 09/05/23 20:30 3 09/05/23 19:48 3 09/05/23 19:26 3 Resident Activity Tracking Resident Involvement: Resident Care Provided Care Provided: Adult Hospital Medicine (4) Congestive heart failure Heart failure chronicity: acute Heart failure type: unspecified Qualified Code(s): I50.9 - Heart failure, unspecified"
[2023-09-06] MEDS: NUTREN LIQD 2.0 1,000 ML BAG PEG SCH ×3 (07:40→17:03)
[2023-09-06 09:08] LABS: Hematocrit (blood only) 24.1 % (42.0-52.0); Hemoglobin 7.7 g/dl (14.0-18.0); Mean Corpuscular Hemoglobin 33.2 pg (25.0-34.0); Mean Corpuscular Volume 103.9 fL (80.0-100.0); Mean Platelet Volume 12.8 fL (9.4-12.4); Nucleated RBC # (auto) 0.04 K/uL (0.00-0.12); Nucleated RBC % (auto) 0.6 %; Platelet Count 150 K/uL (130-400); RDW Standard Deviation 59.9 fL (36.4-46.3); Red Blood Count 2.32 M/uL (4.70-6.10); White Blood Count 7.09 K/ul (4.8-10.8)
[2023-09-06 09:25] LABS: BUN Creatinine Ratio 45.6 (10-20); Calcium 7.4 mg/dl (8.6-10.3); Creatinine Clr Calc Pharmacy 65.8 ml/min; Est GFR (African American) 101.4 ml/min; Est GFR (Non-African American) 87.5 ml/min; Potassium 3.8 mmol/L (3.5-5.1)
[2023-09-06] MEDS: INSULIN ASPART PER UNIT CHARGE SC SCH ×4 (09:30→20:59)
[2023-09-06] MEDS: DOXYCYCLINE HYCLATE 100 MG in DEXTROSE 5% MINI-B 100 ML IV SCH ×2 (09:30→20:58)
[2023-09-06] MEDS: cloZAPine 25 MG TAB PO SCH ×2 (09:31→21:05)
[2023-09-06] MEDS: HEPARIN SOD 5,000 UNIT/0.5 ML VIAL SQ SCH ×2 (09:31→21:00)
[2023-09-06] MEDS: guaiFENesin SUGAR FREE 100 MG/5 ML UDC GT SCH ×3 (09:32→21:00)
[2023-09-06] MEDS: FLUTICASONE PROPIONATE NA SPR 16 GM BTL SCH (09:32)
[2023-09-06] MEDS: allopurinoL 100 MG TAB GT SCH ×2 (09:32→21:05)
[2023-09-06] MEDS: CHLORHEXIDINE GLUCONATE 0.12% 480 ML MT SCH ×2 (09:33→20:59)
[2023-09-06] MEDS: BUTT PASTE (ZINC OXIDE 16%) 171 APPLN/57 GM JAR TOP SCH ×2 (09:33→21:11)
[2023-09-06] MEDS ORDERED: TUBE FEEDING WATER FLUSH PEG SCH (14:00)
[2023-09-06] MEDS: cloZAPine 100 MG TAB PO SCH (21:05)
[2023-09-07] MEDS: LEVALBUTEROL 1.25 MG/3 ML NEB INH SCH ×4 (00:29→19:38)
[2023-09-07] MEDS: TUBE FEEDING WATER FLUSH PEG SCH ×3 (05:48→21:55)
[2023-09-07 06:58] LABS: Hematocrit (blood only) 24.5 % (42.0-52.0); Hemoglobin 7.9 g/dl (14.0-18.0); Mean Corpuscular Hemoglobin 33.2 pg (25.0-34.0); Mean Corpuscular Hgb Conc 32.2 g/dL (32.0-36.0); Mean Corpuscular Volume 102.9 fL (80.0-100.0); Mean Platelet Volume 12.8 fL (9.4-12.4); Nucleated RBC # (auto) 0.03 K/uL (0.00-0.12); Nucleated RBC % (auto) 0.4 %; Platelet Count 167 K/uL (130-400); RDW Coefficient of Variation 15.9 % (11.5-14.5); RDW Standard Deviation 59.7 fL (36.4-46.3); Red Blood Count 2.38 M/uL (4.70-6.10); White Blood Count 8.42 K/ul (4.8-10.8)
--- NOTE | 2023-09-07 07:23 | Hospitalist Progress Note ---
"Date of Service September 07, 2023 Assessment & Plan (1) Influenza A: (2) Pneumonia: (3) Uses feeding tube: (4) Congestive heart failure: (5) Myelodysplasia (myelodysplastic syndrome): (6) Microcephaly: (7) Seizure disorder: (8) Gout: Plan 68 yo male with PMHx of CHF, myelodysplastic syndrome, chronic feeding tube use, microcephaly/intellectual disability/seizure disorder, esophageal dyskinesia, and gout who presented from [facility] with worsening sob/dyspnea. Influenza A | ?Bacterial PNA (likely MRSA) -Recent [facility] admission from 08/07 - 08/16 for ARF and aspiration pneumonitis. Was discharged back to [facility]. Per report, on 08/29, [facility] suspected once again aspiration pneumonitis and started treatment with solumedrol IV, cefepime, and flagyl. With worsening symptoms, he presented to [facility] on 09/01 for admission. -on admission, tested +influenza A; afebrile, no leukocytosis, neg procal, neg CRP -CT Chest: scattered opacities suggestive of PNA vs aspiration pneumonitis and small bilateral pleural effusions. Follow-up chest CT in 3 months to ensure resolution is recommended. -blood cx neg -MRSA nares (08/07) positive -continue guaifenesin, tylenol --- Flu A: Cont. Tamiflu. Discontinued prednisone (09/03). --- PNA: Low suspicion for bacterial PNA, d/c vanc and cefepime. Will cont. MRSA/atypical coverage with doxycycline (thru 09/08). Respiratory Distress | New Oxygen Requirement - Patient not on oxygen at baseline - ABG w/o evidence of respiratory failure - Cont. Levalbuterol nebulizers [facility], as surrogate for pulmonary toilet (patient unable to participate) --- Continue to wean supplemental O2 as tolerated (now 1L via NC), breathing non-labored Hypernatremia (158) - Likely hyperosmolar hyponatremia due to intravascular volume depletion as this occurred during previous hospitalization. - Clinically appears euvolemic s/p 1L 1/2NSS 09/03 - Na level acutely rising 09/05, tx w/ D5 @ 400 mL/hr w/ 3 hour BMP checks, continue insulin for mgmt of hyperglycemia --- Na level at 148, continue saline flushes to 300 mL TID in addition to 100 mL Pre/Post feeding flushes. Continue to monitor BMP. CHF, chronic - Grade 1 diastolic, on admission BNP 140s. Monitor fluid status. Appears euvolemic. Feeding Tube - Continue aspiration precautions - Continue full nutrition through peg-tube (Nutren 2.0) - Continue saline flushes - Nutrition consulted, appreciate recs Myelodysplasia (myelodysplastic syndrome), chronic - Follows with hematology, Hgb stable Seizure disorder: - Continue clozapine through PEG tube Gout: - Continue allopurinol through PEG tube Code: DNR/DNI FEN/GI: nutrition via PEG VTE ppx: Heparin SQ Dispo: PCU, Goal to Transition to [facility] for rehab upon discharge Admission and Anticipated Discharge Date Admission Date: September 01, 2023 Supervising Physician Co-Signing Physician Notes ATTESTATION I also saw the patient and confirmed stark portions of the history and exam. I agree with the impression and plan in the resident documentation, and as summarized below. According to home health registered nurse, patient is much more alert and interactive. Similarly more himself EXAM 105/54, 85, 16, 94% on nasal cannula at 1 L/min Heart regular rate and rhythm Lungs clear with nonlabored respirations DATA Labs Hemoglobin 7.9 Sodium 148, potassium 3.9, BUN 31, creatinine 0.64 IMPRESSION & PLAN Acute hypoxic respiratory failure Influenza A Pneumonia General impression is that of improvement Complete course of Tamiflu Supportive care Hypernatremia Improved with free water, adjustment of saline flushes Monitor Bipolar disease Continue home medications Microcephaly with worsening baseline function Although some discussion with regards to hospice previously, today's discussion focuses more on post illness rehabilitation with a ventral return to his senior care Additional per resident documentation Subjective 09/07: Patient interactive on exam today, aid noting that patient is back to his normal smiling self. Breathing remains unlabored. Patinet non-verbal at [facility], but continues to smile and nod in response to interactions. No additional HPI. Review of Systems Review of Systems: As per HPI Physical Exam Physical Exam: Gen: calm, nonverbal, non-toxic appearing HEENT: moist mucus membranes Neck: supple, no lymphadenopathy, trachea midline Skin: warm, dry, no cyanosis CV: RRR. no murmurs/rubs/gallops, 2+ distal peripheral pulses. Lungs: un-labored breathing, symmetrical chest wall expansion, no wheezing/rales/rhonchi MSK: trace edema noted in the LEs b/l, nonerythematous Abdomen: Soft and nondistended.No guarding. Neuro: Nonverbal, smiles and nods to questions Results & Data Results & Data Vital Signs (Past 12 Hours) Vital Signs Temp Pulse Pulse Resp BP Pulse Ox O2 Del Method 09/07/23 04:10 37 C 85 20 153/68 H 92 Nasal Cannula 09/07/23 01:04 83 09/07/23 00:31 83 18 97 Nasal Cannula 09/06/23 22:00 Nasal Cannula 09/06/23 21:57 37.2 C 83 22 144/67 H 97 Room Air 09/06/23 19:35 36.8 C 84 21 133/65 96 Nasal Cannula O2 Flow Rate 09/07/23 04:10 2 09/07/23 01:04 09/07/23 00:31 2 09/06/23 22:00 2 09/06/23 21:57 2 09/06/23 19:35 2 Resident Activity Tracking Resident Involvement: Resident Care Provided Care Provided: Adult Hospital Medicine (4) Congestive heart failure Heart failure chronicity: acute Heart failure type: unspecified Qualified Code(s): I50.9 - Heart failure, unspecified"
[2023-09-07 07:40] LABS: BUN Creatinine Ratio 48.4 (10-20); Calcium 7.7 mg/dl (8.6-10.3); Creatinine Clr Calc Pharmacy 92.5 ml/min; Est GFR (African American) 116.6 ml/min; Est GFR (Non-African American) 100.6 ml/min; Potassium 3.9 mmol/L (3.5-5.1)
[2023-09-07] MEDS ORDERED: SODIUM CHLORIDE 0.65% NA SOLN 45 ML (OCEAN) ONE (08:04)
[2023-09-07] MEDS: INSULIN ASPART PER UNIT CHARGE SC SCH ×4 (08:53→20:22)
[2023-09-07] MEDS: CHLORHEXIDINE GLUCONATE 0.12% 480 ML MT SCH ×2 (09:01→20:13)
[2023-09-07] MEDS: FLUTICASONE PROPIONATE NA SPR 16 GM BTL SCH (09:02)
[2023-09-07] MEDS: BUTT PASTE (ZINC OXIDE 16%) 171 APPLN/57 GM JAR TOP SCH ×2 (09:02→20:14)
[2023-09-07] MEDS: DOXYCYCLINE HYCLATE 100 MG in DEXTROSE 5% MINI-B 100 ML IV SCH ×2 (09:04→20:13)
[2023-09-07] MEDS: NUTREN LIQD 2.0 1,000 ML BAG PEG SCH ×3 (09:13→17:53)
[2023-09-07] MEDS: guaiFENesin SUGAR FREE 100 MG/5 ML UDC GT SCH ×3 (09:17→20:12)
[2023-09-07] MEDS: allopurinoL 100 MG TAB GT SCH ×2 (09:17→20:12)
[2023-09-07] MEDS: cloZAPine 25 MG TAB PO SCH ×2 (09:17→20:13)
[2023-09-07] MEDS: HEPARIN SOD 5,000 UNIT/0.5 ML VIAL SQ SCH ×2 (09:18→20:12)
[2023-09-07] MEDS: cloZAPine 100 MG TAB PO SCH (20:12)
[2023-09-08] MEDS: LEVALBUTEROL 1.25 MG/3 ML NEB INH SCH ×4 (01:51→20:42)
[2023-09-08] MEDS: TUBE FEEDING WATER FLUSH PEG SCH ×6 (05:23→19:32)
[2023-09-08 06:40] LABS: Basophils # (auto) 0.01 K/uL (0.00-0.20); Basophils % (auto) 0.1 %; Eosinophils # (auto) 0.03 K/uL (0.00-0.50); Eosinophils % (auto) 0.4 %; Hematocrit (blood only) 25.6 % (42.0-52.0); Immature Granulocytes # (auto) 0.06 K/uL (0.01-0.20); Immature Granulocytes % (auto) 0.9 %; Lymphocytes # (auto) 1.07 K/uL (1.20-3.40); Lymphocytes % (auto) 15.2 %; Mean Corpuscular Hemoglobin 33.1 pg (25.0-34.0); Mean Corpuscular Hgb Conc 31.3 g/dL (32.0-36.0); Mean Corpuscular Volume 105.8 fL (80.0-100.0); Monocytes # (auto) 0.49 K/uL (0.11-0.59); Neutrophils # (auto) 5.39 K/uL (1.40-6.50); Neutrophils % (auto) 76.4 %; Platelet Count 185 K/uL (130-400); RDW Coefficient of Variation 16.2 % (11.5-14.5); RDW Standard Deviation 61.1 fL (36.4-46.3); Red Blood Count 2.42 M/uL (4.70-6.10); White Blood Count 7.05 K/ul (4.8-10.8)
--- NOTE | 2023-09-08 06:45 | Hospitalist Progress Note ---
"Date of Service September 08, 2023 Assessment & Plan (1) Influenza A: (2) Pneumonia: (3) Uses feeding tube: (4) Congestive heart failure: (5) Myelodysplasia (myelodysplastic syndrome): (6) Microcephaly: (7) Seizure disorder: (8) Gout: Plan 68 yo male with PMHx of CHF, myelodysplastic syndrome, chronic feeding tube use, microcephaly/intellectual disability/seizure disorder, esophageal dyskinesia, and gout who presented from [facility] with worsening sob/dyspnea. Influenza A | ?Bacterial PNA (likely MRSA) -Recent [facility] admission from 08/07 - 08/16 for ARF and aspiration pneumonitis. Was discharged back to [facility]. Per report, on 08/29, [facility] suspected once again aspiration pneumonitis and started treatment with solumedrol IV, cefepime, and flagyl. With worsening symptoms, he presented to [facility] on 09/01 for admission. -on admission, tested +influenza A; afebrile, no leukocytosis, neg procal, neg CRP -CT Chest: scattered opacities suggestive of PNA vs aspiration pneumonitis and small bilateral pleural effusions. Follow-up chest CT in 3 months to ensure resolution is recommended. -blood cx neg -MRSA nares (08/07) positive -continue guaifenesin, tylenol --- Flu A: Completed Tamiflu & Prednisone --- PNA: Will complete Doxycycline today Respiratory Distress | New Oxygen Requirement - Patient not on oxygen at baseline - ABG w/o evidence of respiratory failure - Cont. Levalbuterol nebulizers [facility], as surrogate for pulmonary toilet (patient unable to participate) --- Breathing non-labored, saturating well on room air Hypernatremia (158) - Likely hyperosmolar hyponatremia due to intravascular volume depletion as this occurred during previous hospitalization. - Clinically appears euvolemic s/p 1L 1/2NSS 09/03 - Na level acutely rising 09/05, tx w/ D5 @ 400 mL/hr w/ 3 hour BMP checks, continue insulin for mgmt of hyperglycemia --- Na level at 147, continue saline flushes to 300 mL TID in addition to 100 mL Pre/Post feeding flushes. Continue to monitor BMP. CHF, chronic - Grade 1 diastolic, on admission BNP 140s. Monitor fluid status. Appears euvolemic. Feeding Tube - Continue aspiration precautions - Continue full nutrition through peg-tube (Nutren 2.0) - Continue saline flushes - Nutrition consulted, appreciate recs Myelodysplasia (myelodysplastic syndrome), chronic - Follows with hematology, Hgb stable Seizure disorder: - Continue clozapine through PEG tube Gout: - Continue allopurinol through PEG tube Code: DNR/DNI FEN/GI: nutrition via PEG VTE ppx: Heparin SQ Dispo: PCU, Goal to Transition to [facility] for rehab upon discharge Admission and Anticipated Discharge Date Admission Date: September 01, 2023 Supervising Physician Co-Signing Physician Notes I personally examined the patient and verified stark points of history and exam, discussed case, and agree with decision making and plan documented by Dr. Paniagua. Patient stated been needed at bedside during examination and reports patient much more interactive today and closer to baseline. Patient resting comfortably during exam. Subjective 09/08: Increasingly interactive on exam, caregiver noting return to baseline. No acute events overnight. Patient non-verbal, no additional HPI. Review of Systems Review of Systems: As per HPI Physical Exam Physical Exam: Gen: calm, nonverbal, non-toxic appearing HEENT: MMM Neck: supple, no LAD, trachea midline Skin: warm, dry, no cyanosis CV: RRR. no murmurs/rubs/gallops, 2+ distal peripheral pulses. Lungs: un-labored breathing, symmetrical chest wall expansion, no wheezing/rales/rhonchi, transmitted upper airway sounds MSK: trace edema noted in the LEs b/l, nonerythematous Abdomen: Soft and nondistended.No guarding. PEG tube with mild serosanguineous drainage (baseline) Neuro: Nonverbal, smiles and nods to questions Results & Data Results & Data Vital Signs (Past 12 Hours) Vital Signs Temp Pulse Pulse Resp BP Pulse Ox O2 Del Method 09/08/23 02:35 37 C 92 H 18 130/80 93 Nasal Cannula 09/08/23 01:53 86 17 96 Nasal Cannula 09/07/23 23:20 92 H 09/07/23 23:11 36.6 C 88 18 139/78 94 Nasal Cannula 09/07/23 20:30 Nasal Cannula 09/07/23 19:48 36.3 C L 82 18 117/61 93 Nasal Cannula 09/07/23 19:44 80 18 93 Nasal Cannula O2 Flow Rate 09/08/23 02:35 09/08/23 01:53 1 09/07/23 23:20 09/07/23 23:11 09/07/23 20:30 1 09/07/23 19:48 09/07/23 19:44 1 Resident Activity Tracking Resident Involvement: Resident Care Provided Care Provided: Adult Hospital Medicine (4) Congestive heart failure Heart failure chronicity: acute Heart failure type: unspecified Qualified Code(s): I50.9 - Heart failure, unspecified"
[2023-09-08 07:04] LABS: BUN Creatinine Ratio 44.9 (10-20); Calcium 8.2 mg/dl (8.6-10.3); Creatinine Clr Calc Pharmacy 85.8 ml/min; Est GFR (African American) 113.1 ml/min; Est GFR (Non-African American) 97.5 ml/min; Potassium 4.2 mmol/L (3.5-5.1)
[2023-09-08] MEDS: INSULIN ASPART PER UNIT CHARGE SC SCH ×4 (08:44→20:58)
[2023-09-08] MEDS: HEPARIN SOD 5,000 UNIT/0.5 ML VIAL SQ SCH ×2 (08:59→19:32)
[2023-09-08] MEDS: allopurinoL 100 MG TAB GT SCH ×2 (08:59→19:32)
[2023-09-08] MEDS: DOXYCYCLINE HYCLATE 100 MG in DEXTROSE 5% MINI-B 100 ML IV SCH (08:59)
[2023-09-08] MEDS: FLUTICASONE PROPIONATE NA SPR 16 GM BTL SCH (09:02)
[2023-09-08] MEDS: CHLORHEXIDINE GLUCONATE 0.12% 480 ML MT SCH ×2 (09:02→19:33)
[2023-09-08] MEDS: cloZAPine 25 MG TAB PO SCH ×2 (09:03→19:32)
[2023-09-08] MEDS: guaiFENesin SUGAR FREE 100 MG/5 ML UDC GT SCH ×3 (09:04→19:32)
[2023-09-08] MEDS: BUTT PASTE (ZINC OXIDE 16%) 171 APPLN/57 GM JAR TOP SCH ×2 (09:04→20:59)
[2023-09-08] MEDS: NUTREN LIQD 2.0 1,000 ML BAG PEG SCH ×3 (10:33→18:27)
[2023-09-08] MEDS: cloZAPine 100 MG TAB PO SCH (19:32)
[2023-09-09] MEDS: TUBE FEEDING WATER FLUSH PEG SCH ×10 (00:38→23:10)
[2023-09-09] MEDS: LEVALBUTEROL 1.25 MG/3 ML NEB INH SCH ×4 (01:26→19:42)
--- NOTE | 2023-09-09 06:46 | Hospitalist Progress Note ---
"Date of Service September 09, 2023 Assessment & Plan (1) Influenza A: (2) Pneumonia: (3) Uses feeding tube: (4) Congestive heart failure: (5) Myelodysplasia (myelodysplastic syndrome): (6) Microcephaly: (7) Seizure disorder: (8) Gout: Plan 68 yo male with PMHx of CHF, myelodysplastic syndrome, chronic feeding tube use, microcephaly/intellectual disability/seizure disorder, esophageal dyskinesia, and gout who presented from [facility] with worsening sob/dyspnea. Influenza A | ?Bacterial PNA (likely MRSA) -Recent [facility] admission from 08/07 - 08/16 for ARF and aspiration pneumonitis. Was discharged back to [facility]. Per report, on 08/29, [facility] suspected once again aspiration pneumonitis and started treatment with solumedrol IV, cefepime, and flagyl. With worsening symptoms, he presented to [facility] on 09/01 for admission. -on admission, tested +influenza A; afebrile, no leukocytosis, neg procal, neg CRP -CT Chest: scattered opacities suggestive of PNA vs aspiration pneumonitis and small bilateral pleural effusions. Follow-up chest CT in 3 months to ensure resolution is recommended. -blood cx neg -MRSA nares (08/07) positive -continue guaifenesin, tylenol -Flu A: Completed Tamiflu & Prednisone -PNA: Completed 5 day course of Doxycycline on 09/08. Respiratory Distress | New Oxygen Requirement - Patient not on oxygen at baseline - ABG w/o evidence of respiratory failure - Cont. Levalbuterol nebulizers [facility], as surrogate for pulmonary toilet (patient unable to participate) - Breathing non-labored, saturating well on room air. Hypernatremia (158) - Likely hyperosmolar hyponatremia due to intravascular volume depletion as this occurred during previous hospitalization. - Clinically appears euvolemic s/p 1L 1/2NSS 09/03 - Na level acutely rising 09/05, tx w/ D5 @ 400 mL/hr w/ 3 hour BMP checks, continue insulin for mgmt of hyperglycemia - Na level at 145, continue saline flushes to 300 mL TID in addition to 100 mL Pre/Post feeding flushes. Continue to monitor BMP. CHF, chronic - Grade 1 diastolic, on admission BNP 140s. Monitor fluid status. Appears euvolemic. Feeding Tube - Continue aspiration precautions - Continue full nutrition through peg-tube (Nutren 2.0) - Continue saline flushes - Nutrition consulted, appreciate recs Myelodysplasia (myelodysplastic syndrome), chronic - Follows with hematology, Hgb stable Seizure disorder: - Continue clozapine through PEG tube Gout: - Continue allopurinol through PEG tube Code: DNR/DNI FEN/GI: nutrition via PEG VTE ppx: Heparin SQ Dispo: PCU, Goal to Transition to [facility] for rehab upon discharge, case management following. Will review patient on Monday. Admission and Anticipated Discharge Date Admission Date: September 01, 2023 Supervising Physician Co-Signing Physician Notes I personally examined the patient and verified stark points of history and exam, discussed case, and agree with decision making and plan documented by Dr. Coyne. Patient alert today and engaging and smiling. Breakdown of skin in gluteal cleft ~2cm linear, encouraged repositioning to avoid pressure, barrier cream applied, wound care consulted. Vital signs stable. Heart regular rate and rhythm, lungs clear to auscultation bilaterally, nontender abdomen. Awaiting placement. Subjective Patient seen bedside this morning with caregiver. Caregiver states that he has returned to his baseline. No acute events overnight. Patient non-verbal at baseline. Review of Systems Review of Systems: All systems reviewed & are unremarkable except as noted in Subjective Physical Exam Physical Exam: Gen: calm, nonverbal, non-toxic appearing HEENT: MMM Neck: supple, no LAD, trachea midline Skin: warm, dry, no cyanosis CV: RRR. no murmurs/rubs/gallops, 2+ distal peripheral pulses. Lungs: un-labored breathing, symmetrical chest wall expansion, no wheezing/rales/rhonchi, transmitted upper airway sounds Abdomen: Soft and nondistended.No guarding. PEG tube with mild serosanguineous drainage (baseline) Neuro: Nonverbal Results & Data Results & Data Vital Signs (Past 12 Hours) Vital Signs Temp Pulse Pulse Resp BP Pulse Ox O2 Del Method 09/09/23 03:01 36.9 C 93 H 18 149/66 H 93 Nasal Cannula 09/09/23 01:39 93 H 09/09/23 01:27 96 H 18 88 L Room Air 09/08/23 23:29 36.8 C 92 H 18 145/67 H 93 Nasal Cannula 09/08/23 20:43 96 H 18 90 Room Air 09/08/23 20:30 Room Air 09/08/23 19:34 36.6 C 93 H 18 114/57 L 93 Nasal Cannula Resident Activity Tracking Resident Involvement: Resident Care Provided Care Provided: Adult Hospital Medicine (4) Congestive heart failure Heart failure chronicity: acute Heart failure type: unspecified Qualified Code(s): I50.9 - Heart failure, unspecified"
[2023-09-09 08:01] LABS: Hematocrit (blood only) 23.2 % (42.0-52.0); Hemoglobin 7.6 g/dl (14.0-18.0); Mean Corpuscular Hemoglobin 33.5 pg (25.0-34.0); Mean Corpuscular Hgb Conc 32.8 g/dL (32.0-36.0); Mean Corpuscular Volume 102.2 fL (80.0-100.0); Mean Platelet Volume 12.4 fL (9.4-12.4); Platelet Count 206 K/uL (130-400); RDW Standard Deviation 58.7 fL (36.4-46.3); Red Blood Count 2.27 M/uL (4.70-6.10); White Blood Count 9.14 K/ul (4.8-10.8)
[2023-09-09 08:18] LABS: BUN Creatinine Ratio 37.5 (10-20); Calcium 8.1 mg/dl (8.6-10.3); Creatinine Clr Calc Pharmacy 100.5 ml/min; Est GFR (African American) 116.6 ml/min; Est GFR (Non-African American) 100.6 ml/min; Potassium 4.4 mmol/L (3.5-5.1)
[2023-09-09] MEDS: INSULIN ASPART PER UNIT CHARGE SC SCH ×4 (08:51→21:06)
[2023-09-09] MEDS: allopurinoL 100 MG TAB GT SCH ×2 (08:54→21:04)
[2023-09-09] MEDS: CHLORHEXIDINE GLUCONATE 0.12% 480 ML MT SCH ×2 (08:55→21:05)
[2023-09-09] MEDS: cloZAPine 25 MG TAB PO SCH ×2 (08:55→21:04)
[2023-09-09] MEDS: guaiFENesin SUGAR FREE 100 MG/5 ML UDC GT SCH ×3 (08:55→21:05)
[2023-09-09] MEDS: FLUTICASONE PROPIONATE NA SPR 16 GM BTL SCH (08:55)
[2023-09-09] MEDS: HEPARIN SOD 5,000 UNIT/0.5 ML VIAL SQ SCH ×2 (08:56→21:05)
[2023-09-09] MEDS: BUTT PASTE (ZINC OXIDE 16%) 171 APPLN/57 GM JAR TOP SCH ×2 (08:57→21:06)
[2023-09-09] MEDS: NUTREN LIQD 2.0 1,000 ML BAG PEG SCH ×3 (10:21→17:21)
[2023-09-09] MEDS ORDERED: ACETAMINOPHEN 1,000 MG/100 ML VIAL IV STA (10:58)
[2023-09-09] MEDS: cloZAPine 100 MG TAB PO SCH (21:04)
[2023-09-10] MEDS: LEVALBUTEROL 1.25 MG/3 ML NEB INH SCH ×2 (00:26→07:47)
[2023-09-10] MEDS: TUBE FEEDING WATER FLUSH PEG SCH ×8 (06:20→18:29)
--- NOTE | 2023-09-10 06:29 | Hospitalist Progress Note ---
"Date of Service September 10, 2023 Assessment & Plan (1) Influenza A: (2) Pneumonia: (3) Uses feeding tube: (4) Congestive heart failure: (5) Myelodysplasia (myelodysplastic syndrome): (6) Microcephaly: (7) Seizure disorder: (8) Gout: Plan 68 yo male with PMHx of CHF, myelodysplastic syndrome, chronic feeding tube use, microcephaly/intellectual disability/seizure disorder, esophageal dyskinesia, and gout who presented from [facility] with worsening sob/dyspnea. Influenza A | ?Bacterial PNA (likely MRSA) -Recent [facility] admission from 08/07 - 08/16 for ARF and aspiration pneumonitis. Was discharged back to [facility]. Per report, on 08/29, [facility] suspected once again aspiration pneumonitis and started treatment with solumedrol IV, cefepime, and flagyl. With worsening symptoms, he presented to [facility] on 09/01 for admission. -on admission, tested +influenza A; afebrile, no leukocytosis, neg procal, neg CRP -CT Chest: scattered opacities suggestive of PNA vs aspiration pneumonitis and small bilateral pleural effusions. Follow-up chest CT in 3 months to ensure resolution is recommended. -blood cx neg -MRSA nares (08/07) positive -continue guaifenesin, Tylenol -Flu A: Completed Tamiflu & Prednisone -PNA: Completed 5 day course of Doxycycline on 09/08. Respiratory Distress | New Oxygen Requirement - Patient not on oxygen at baseline - ABG w/o evidence of respiratory failure - Cont. Levalbuterol nebulizers [facility], as surrogate for pulmonary toilet (patient unable to participate) - Breathing non-labored, saturating well 2 L nasal cannula. Hypernatremia (158) - Likely hyperosmolar hyponatremia due to intravascular volume depletion as this occurred during previous hospitalization. - Clinically appears euvolemic s/p 1L 1/2NSS 09/03 - Na level acutely rising 09/05, tx w/ D5 @ 400 mL/hr w/ 3 hour BMP checks, continue insulin for mgmt of hyperglycemia - Na level at 145, continue saline flushes to 300 mL TID in addition to 100 mL Pre/Post feeding flushes. Continue to monitor BMP. CHF, chronic - Grade 1 diastolic, on admission BNP 140s. Monitor fluid status. Appears euvolemic. Feeding Tube - Continue aspiration precautions - Continue full nutrition through peg-tube (Nutren 2.0) - Continue saline flushes - Nutrition consulted, appreciate recs Myelodysplasia (myelodysplastic syndrome), chronic - Follows with hematology, Hgb stable, though continues to decrease during admission - Macrocytic, will add on IV B12 and folate to morning labs Seizure disorder: - Continue clozapine through PEG tube Gout: - Continue allopurinol through PEG tube Code: DNR/DNI FEN/GI: nutrition via PEG VTE ppx: Heparin SQ Dispo: PCU, Goal to Transition to [facility] for rehab upon discharge, case management following. Will review patient on Monday. Admission and Anticipated Discharge Date Admission Date: September 01, 2023 Supervising Physician Co-Signing Physician Notes I personally examined the patient and verified stark points of history and exam, discussed case, and agree with decision making and plan documented by Dr. Coyne. Patient resting comfortably during exam. On room air. Patient's aide reports that mentation is at baseline, she hopes that he can be rehabilitated to return to his baseline ambulation. Rehabilitation recommended by physical therapy, awaiting placement. Subjective Patient seen bedside this morning with caregiver. Patient is nonverbal at baseline. Caregiver states that he is at his baseline. No issues overnight. Review of Systems Review of Systems: All systems reviewed & are unremarkable except as noted in Subjective Physical Exam Physical Exam: Gen: calm, nonverbal, non-toxic appearing HEENT: MMM Neck: supple, no LAD, trachea midline Skin: warm, dry, no cyanosis CV: RRR. no murmurs/rubs/gallops, 2+ distal peripheral pulses. Lungs: un-labored breathing, symmetrical chest wall expansion, no wheezing/rales/rhonchi, transmitted upper airway sounds Abdomen: Soft and nondistended.No guarding. PEG tube with mild serosanguineous drainage (baseline) Neuro: Nonverbal Results & Data Results & Data Vital Signs (Past 12 Hours) Vital Signs Temp Pulse Pulse Resp BP BP Pulse Ox 09/10/23 03:06 36.5 C 93 H 18 145/69 H 94 09/10/23 00:26 96 H 18 97 09/09/23 23:17 36.6 C 88 18 135/68 93 09/09/23 23:00 82 09/09/23 20:30 09/09/23 19:48 36.6 C 90 18 126/58 L 94 09/09/23 19:43 70 18 92 O2 Del Method 09/10/23 03:06 Nasal Cannula 09/10/23 00:26 Room Air 09/09/23 23:17 Nasal Cannula 09/09/23 23:00 09/09/23 20:30 Room Air 09/09/23 19:48 Nasal Cannula 09/09/23 19:43 Room Air Resident Activity Tracking Resident Involvement: Resident Care Provided Care Provided: Adult Hospital Medicine (4) Congestive heart failure Heart failure chronicity: acute Heart failure type: unspecified Qualified Code(s): I50.9 - Heart failure, unspecified"
[2023-09-10 07:43] LABS: Hematocrit (blood only) 24.2 % (42.0-52.0); Hemoglobin 7.6 g/dl (14.0-18.0); Mean Corpuscular Hemoglobin 32.9 pg (25.0-34.0); Mean Corpuscular Hgb Conc 31.4 g/dL (32.0-36.0); Mean Corpuscular Volume 104.8 fL (80.0-100.0); Mean Platelet Volume 12.5 fL (9.4-12.4); Nucleated RBC # (auto) 0.02 K/uL (0.00-0.12); Nucleated RBC % (auto) 0.2 %; Platelet Count 208 K/uL (130-400); RDW Standard Deviation 59.2 fL (36.4-46.3); Red Blood Count 2.31 M/uL (4.70-6.10)
[2023-09-10 08:03] LABS: BUN Creatinine Ratio 31.7 (10-20); Calcium 8.3 mg/dl (8.6-10.3); Est GFR (African American) 117.4 ml/min; Est GFR (Non-African American) 101.3 ml/min; Potassium 4.5 mmol/L (3.5-5.1)
[2023-09-10] MEDS: INSULIN ASPART PER UNIT CHARGE SC SCH ×4 (08:09→20:56)
[2023-09-10] MEDS: NUTREN LIQD 2.0 1,000 ML BAG PEG SCH ×3 (08:09→17:15)
[2023-09-10] MEDS: FLUTICASONE PROPIONATE NA SPR 16 GM BTL SCH (08:10)
[2023-09-10] MEDS: CHLORHEXIDINE GLUCONATE 0.12% 480 ML MT SCH ×2 (08:10→22:09)
[2023-09-10] MEDS: guaiFENesin SUGAR FREE 100 MG/5 ML UDC GT SCH ×3 (08:10→20:55)
[2023-09-10] MEDS: HEPARIN SOD 5,000 UNIT/0.5 ML VIAL SQ SCH ×2 (08:11→20:55)
[2023-09-10] MEDS: BUTT PASTE (ZINC OXIDE 16%) 171 APPLN/57 GM JAR TOP SCH ×2 (08:11→20:54)
[2023-09-10] MEDS: cloZAPine 25 MG TAB PO SCH ×2 (08:28→20:55)
[2023-09-10] MEDS: allopurinoL 100 MG TAB GT SCH ×2 (08:28→20:55)
[2023-09-10] MEDS: cloZAPine 100 MG TAB PO SCH (20:55)
[2023-09-11] MEDS: TUBE FEEDING WATER FLUSH PEG SCH ×10 (00:18→22:18)
--- NOTE | 2023-09-11 06:59 | Hospitalist Progress Note ---
"Date of Service September 11, 2023 Assessment & Plan (1) Influenza A: (2) Pneumonia: (3) Uses feeding tube: (4) Congestive heart failure: (5) Myelodysplasia (myelodysplastic syndrome): (6) Microcephaly: (7) Seizure disorder: (8) Gout: Plan Marty Simms is a 68 year-old male with a past medical history of CHF, myelodysplastic syndrome, chronic feeding tube use, microcephaly/intellectual disability/seizure disorder, esophageal dyskinesia, and gout who presented from [facility] with worsening sob/dyspnea. Influenza A | ?Bacterial PNA (likely MRSA) -Recent [facility] admission from 08/07 - 08/16 for ARF and aspiration pneumonitis. Was discharged back to [facility]. Per report, on 08/29, [facility] suspected once again aspiration pneumonitis and started treatment with solumedrol IV, cefepime, and flagyl. With worsening symptoms, he presented to [facility] on 09/01 for admission. -on admission, tested +influenza A; afebrile, no leukocytosis, neg procal, neg CRP -CT Chest: scattered opacities suggestive of PNA vs aspiration pneumonitis and small bilateral pleural effusions. Follow-up chest CT in 3 months to ensure resolution is recommended. -blood cx neg -MRSA nares (08/07) positive -continue guaifenesin, Tylenol -Flu A: Completed Tamiflu & Prednisone -PNA: Completed 5 day course of Doxycycline on 09/08. Respiratory Distress | New Oxygen Requirement - Patient not on oxygen at baseline - ABG w/o evidence of respiratory failure - Cont. Levalbuterol nebulizers formerly [facility], as surrogate for pulmonary toilet (patient unable to participate) - Breathing non-labored, saturating well 2 L nasal cannula. Hypernatremia (158) - Likely hyperosmolar hyponatremia due to intravascular volume depletion as this occurred during previous hospitalization. - Clinically appears euvolemic s/p 1L 1/2NSS 09/03 - Na level acutely rising 09/05, tx w/ D5 @ 400 mL/hr w/ 3 hour BMP checks, continue insulin for mgmt of hyperglycemia - Na level at 145, continue saline flushes to 300 mL TID in addition to 100 mL Pre/Post feeding flushes. Continue to monitor BMP. CHF, chronic - Grade 1 diastolic, on admission BNP 140s. Monitor fluid status. Appears euvolemic. Feeding Tube - Continue aspiration precautions - Continue full nutrition through peg-tube (Nutren 2.0) - Continue saline flushes - Nutrition consulted, appreciate recs * Will d/c lance catheter today, discussed with caregiver at bedside that lance may need to be re-inserted if unable to empty bladder. Myelodysplasia (myelodysplastic syndrome), chronic - Follows with hematology, Hgb stable, though continues to decrease during admission - Macrocytic, will add on IV B12 and folate to morning labs Seizure disorder: - Continue clozapine through PEG tube Gout: - Continue allopurinol through PEG tube Code: DNR/DNI FEN/GI: nutrition via PEG VTE ppx: Heparin SQ Dispo: PCU, Goal to Transition to [facility] for rehab upon discharge, case management following. Will review patient on Monday. Admission and Anticipated Discharge Date Admission Date: September 01, 2023 Supervising Physician Co-Signing Physician Notes I personally examined the patient and verified all stark points of history and exam, discussed case, and agree with decision making with Dr Goss caregiver helping change him after BM. no new issues other than wondering if lance can be dc'd vitals noted nad heent nc at mmm breathing unlabored mildly reddened bottom area no opening in skin flu/pneumonia - improved. pending placement, otherwise as above Subjective Patient seen and examined at bedside. His caregiver is at bedside, states he is close to his baseline. He is on 2L NC this morning but was off of oxygen yesterday. His caregiver inquires about his lance- states that he had lance catheter placed while at [facility]- states he has had some difficulty with urinating at times and is wondering if he should see urology. Review of Systems Review of Systems: As per HPI Physical Exam Constitutional: comfortable; no acute distress Eyes: + anicteric sclerae; no conjunctival abn ormality ENMT: Ears: no external ear abnormality Nose: no external nose abnormality Moist mucous membranes Respiratory: Nasal cannula in place. No accessory muscle use or respiratory distress. Cardiovascular: Rate/Rhythm: regular rate and regular rhythm No lower extremity edema bilaterally Gastrointestinal (Abdomen): Inspection/Auscultation: abdomen not distended Percussion/Palpation: abdomen soft; abdomen nontender Skin: no rashes, warm and dry Psychiatric: Nonverbal at baseline Genitourinary: Lance catheter in place Results & Data Results & Data Vital Signs (Past 12 Hours) Vital Signs Temp Pulse Pulse Resp BP Pulse Ox O2 Del Method 09/11/23 02:42 37 C 93 H 20 148/61 H 92 Nasal Cannula 09/10/23 23:13 36.6 C 91 H 18 120/64 92 Nasal Cannula 09/10/23 22:41 88 09/10/23 20:40 Nasal Cannula 09/10/23 19:48 37.5 C 88 18 112/71 95 Nasal Cannula O2 Flow Rate 09/11/23 02:42 09/10/23 23:13 09/10/23 22:41 09/10/23 20:40 2 09/10/23 19:48 Resident Activity Tracking Resident Involvement: Resident Care Provided Care Provided: Adult Hospital Medicine (4) Congestive heart failure Heart failure chronicity: acute Heart failure type: unspecified Qualified Code(s): I50.9 - Heart failure, unspecified"
[2023-09-11 07:47] LABS: Hematocrit (blood only) 24.5 % (42.0-52.0); Hemoglobin 7.9 g/dl (14.0-18.0); Mean Corpuscular Hemoglobin 33.2 pg (25.0-34.0); Mean Corpuscular Hgb Conc 32.2 g/dL (32.0-36.0); Mean Corpuscular Volume 102.9 fL (80.0-100.0); Mean Platelet Volume 12.2 fL (9.4-12.4); Nucleated RBC # (auto) 0.02 K/uL (0.00-0.12); Nucleated RBC % (auto) 0.3 %; Platelet Count 225 K/uL (130-400); RDW Coefficient of Variation 16.1 % (11.5-14.5); RDW Standard Deviation 58.1 fL (36.4-46.3); Red Blood Count 2.38 M/uL (4.70-6.10); White Blood Count 7.31 K/ul (4.8-10.8)
[2023-09-11] MEDS: NUTREN LIQD 2.0 1,000 ML BAG PEG SCH ×3 (07:54→17:16)
[2023-09-11] MEDS: INSULIN ASPART PER UNIT CHARGE SC SCH ×4 (07:54→22:53)
[2023-09-11] MEDS: allopurinoL 100 MG TAB GT SCH ×2 (08:00→22:07)
[2023-09-11] MEDS: FLUTICASONE PROPIONATE NA SPR 16 GM BTL SCH (08:01)
[2023-09-11] MEDS: HEPARIN SOD 5,000 UNIT/0.5 ML VIAL SQ SCH ×2 (08:01→22:05)
[2023-09-11] MEDS: cloZAPine 25 MG TAB PO SCH ×2 (08:01→22:06)
[2023-09-11] MEDS: CHLORHEXIDINE GLUCONATE 0.12% 480 ML MT SCH ×2 (08:01→22:04)
[2023-09-11] MEDS: BUTT PASTE (ZINC OXIDE 16%) 171 APPLN/57 GM JAR TOP SCH ×2 (08:02→22:08)
[2023-09-11] MEDS: guaiFENesin SUGAR FREE 100 MG/5 ML UDC GT SCH ×3 (08:02→22:06)
[2023-09-11 08:06] LABS: BUN Creatinine Ratio 25.4 (10-20); Calcium 8.6 mg/dl (8.6-10.3); Creatinine Clr Calc Pharmacy 83.4 ml/min; Est GFR (African American) 111.7 ml/min; Est GFR (Non-African American) 96.4 ml/min; Potassium 4.2 mmol/L (3.5-5.1)
[2023-09-11 08:38] LABS: Folate (Folic Acid),Ser orPlas > 22.30 ng/ml (>5.38)
[2023-09-11 08:39] LABS: Vitamin B12 1100 pg/ml (180-914)
--- NOTE | 2023-09-11 17:44 | Billing Data ---
Date of Service September 11, 2023 Coding Level of Care Code 55742 SUB INP/OBS CARE
[2023-09-11] MEDS: cloZAPine 100 MG TAB PO SCH (22:06)
[2023-09-12] MEDS: TUBE FEEDING WATER FLUSH PEG SCH ×9 (05:33→23:26)
[2023-09-12] MEDS: FLUTICASONE PROPIONATE NA SPR 16 GM BTL SCH (09:28)
[2023-09-12] MEDS: guaiFENesin SUGAR FREE 100 MG/5 ML UDC GT SCH ×3 (09:29→20:03)
[2023-09-12] MEDS: cloZAPine 25 MG TAB PO SCH ×2 (09:33→20:03)
[2023-09-12] MEDS: allopurinoL 100 MG TAB GT SCH ×2 (09:34→20:03)
[2023-09-12] MEDS: HEPARIN SOD 5,000 UNIT/0.5 ML VIAL SQ SCH ×2 (09:38→20:03)
[2023-09-12 09:51] LABS: Hemoglobin 8.2 g/dl (14.0-18.0); Mean Corpuscular Hemoglobin 33.3 pg (25.0-34.0); Mean Corpuscular Hgb Conc 31.5 g/dL (32.0-36.0); Mean Corpuscular Volume 105.7 fL (80.0-100.0); Mean Platelet Volume 11.8 fL (9.4-12.4); Platelet Count 215 K/uL (130-400); RDW Coefficient of Variation 16.2 % (11.5-14.5); RDW Standard Deviation 59.4 fL (36.4-46.3); Red Blood Count 2.46 M/uL (4.70-6.10); White Blood Count 5.72 K/ul (4.8-10.8)
[2023-09-12] MEDS: NUTREN LIQD 2.0 1,000 ML BAG PEG SCH ×3 (09:51→17:17)
[2023-09-12] MEDS: BUTT PASTE (ZINC OXIDE 16%) 171 APPLN/57 GM JAR TOP SCH ×2 (10:03→20:04)
[2023-09-12 10:06] LABS: BUN Creatinine Ratio 27.1 (10-20); Calcium 9.1 mg/dl (8.6-10.3); Creatinine Clr Calc Pharmacy 84.6 ml/min; Est GFR (African American) 112.4 ml/min; Potassium 4.3 mmol/L (3.5-5.1)
[2023-09-12] MEDS: INSULIN ASPART PER UNIT CHARGE SC SCH ×4 (10:09→21:01)
[2023-09-12] MEDS: CHLORHEXIDINE GLUCONATE 0.12% 480 ML MT SCH ×2 (10:13→20:04)
--- NOTE | 2023-09-12 12:31 | Hospitalist Progress Note ---
"Date of Service September 12, 2023 Assessment & Plan (1) Influenza A: (2) Pneumonia: (3) Uses feeding tube: (4) Congestive heart failure: (5) Myelodysplasia (myelodysplastic syndrome): (6) Microcephaly: (7) Seizure disorder: (8) Gout: Plan Marty Simms is a 68 year-old male with a past medical history of CHF, myelodysplastic syndrome, chronic feeding tube use, microcephaly/intellectual disability/seizure disorder, esophageal dyskinesia, and gout who presented from [facility] with worsening sob/dyspnea. Influenza A | ?Bacterial PNA (likely MRSA) -Recent [facility] admission from 08/07 - 08/16 for ARF and aspiration pneumonitis. Was discharged back to [facility]. Per report, on 08/29, [facility] suspected once again aspiration pneumonitis and started treatment with solumedrol IV, cefepime, and flagyl. With worsening symptoms, he presented to [facility] on 09/01 for admission. -on admission, tested +influenza A; afebrile, no leukocytosis, neg procal, neg CRP -CT Chest: scattered opacities suggestive of PNA vs aspiration pneumonitis and small bilateral pleural effusions. Follow-up chest CT in 3 months to ensure resolution is recommended. -blood cx neg -MRSA nares (08/07) positive -continue guaifenesin, Tylenol -Flu A: Completed Tamiflu & Prednisone -PNA: Completed 5 day course of Doxycycline on 09/08. Respiratory Distress | New Oxygen Requirement - Patient not on oxygen at baseline - ABG w/o evidence of respiratory failure - Cont. Levalbuterol nebulizers [facility], as surrogate for pulmonary toilet (patient unable to participate) - Breathing non-labored, saturating well 2 L nasal cannula. Hypernatremia (158) - Likely hyperosmolar hyponatremia due to intravascular volume depletion as this occurred during previous hospitalization. - Clinically appears euvolemic s/p 1L 1/2NSS 09/03 - Na level acutely rising 09/05, tx w/ D5 @ 400 mL/hr w/ 3 hour BMP checks, continue insulin for mgmt of hyperglycemia - Na level at 145, continue saline flushes to 300 mL TID in addition to 100 mL Pre/Post feeding flushes. Continue to monitor BMP. CHF, chronic - Grade 1 diastolic, on admission BNP 140s. Monitor fluid status. Appears euvolemic. Feeding Tube - Continue aspiration precautions - Continue full nutrition through peg-tube (Nutren 2.0) - Continue saline flushes - Nutrition consulted, appreciate recs * Lance d/c on 09/11, patient urinating with external catheter at present Myelodysplasia (myelodysplastic syndrome), chronic - Follows with hematology, Hgb stable, though continues to decrease during admission - Macrocytic, will check on IV B12 and folate Seizure disorder: - Continue clozapine through PEG tube Gout: - Continue allopurinol through PEG tube Code: DNR/DNI FEN/GI: nutrition via PEG VTE ppx: Heparin SQ Dispo: PCU, Goal to Transition to [facility] for rehab upon discharge, case management following. Admission and Anticipated Discharge Date Admission Date: September 01, 2023 Supervising Physician Co-Signing Physician Notes I personally examined the patient and verified all stark points of history and exam, discussed case, and agree with decision making with Dr Goss no new issues no new problems. awaiting placement. caregiver notes since lance dc'd he has been voiding on his own without apparent problem vitals noted nad heent nc at mmm breathing unlabored no accessory muscles good effort skin no rashes no pallor or icterus flu/pneumonia - improved. still pending placement, otherwise as above Subjective Patient awake this morning, caregiver at bedside notes he has been moving around more this morning. No acute events reported overnight. On 2L NC currently. Review of Systems Review of Systems: As per HPI Physical Exam Constitutional: comfortable; no acute distress Eyes: + anicteric sclerae; no conjunctival abn ormality ENMT: Ears: no external ear abnormality Nose: no external nose abnormality Cardiovascular: Rate/Rhythm: regular rate and regular rhythm Gastrointestinal (Abdomen): Inspection/Auscultation: abdomen not distended Percussion/Palpation: abdomen soft; abdomen nontender Skin: no rashes, warm and dry Genitourinary: External catheter in place Results & Data Results & Data Vital Signs (Past 12 Hours) Vital Signs Temp Pulse Resp BP Pulse Ox O2 Del Method O2 Flow Rate 09/12/23 10:30 Nasal Cannula 2 09/12/23 07:21 36.3 C L 84 16 129/69 93 Nasal Cannula 2 Resident Activity Tracking Resident Involvement: Resident Care Provided Care Provided: Adult Hospital Medicine (4) Congestive heart failure Heart failure chronicity: acute Heart failure type: unspecified Qualified Code(s): I50.9 - Heart failure, unspecified"
--- NOTE | 2023-09-12 12:46 | Billing Data ---
Date of Service September 12, 2023 Coding Level of Care Code 39154 SUB INP/OBS CARE
[2023-09-12] MEDS: cloZAPine 100 MG TAB PO SCH (20:03)
[2023-09-13] MEDS: TUBE FEEDING WATER FLUSH PEG SCH ×9 (05:54→23:16)
[2023-09-13 07:25] LABS: Hematocrit (blood only) 25.8 % (42.0-52.0); Hemoglobin 8.1 g/dl (14.0-18.0); Mean Corpuscular Hemoglobin 33.5 pg (25.0-34.0); Mean Corpuscular Hgb Conc 31.4 g/dL (32.0-36.0); Mean Corpuscular Volume 106.6 fL (80.0-100.0); Platelet Count 218 K/uL (130-400); RDW Coefficient of Variation 16.3 % (11.5-14.5); RDW Standard Deviation 61.1 fL (36.4-46.3); Red Blood Count 2.42 M/uL (4.70-6.10); White Blood Count 5.21 K/ul (4.8-10.8)
--- NOTE | 2023-09-13 07:37 | Critical Care Progress Note ---
"Date of Service September 13, 2023 Assessment & Plan (1) Influenza A: (2) Pneumonia: (3) Uses feeding tube: (4) Congestive heart failure: (5) Myelodysplasia (myelodysplastic syndrome): (6) Microcephaly: (7) Seizure disorder: (8) Gout: Plan Marty Simms is 68 yo M w/ PMHx of CHF, myelodysplastic syndrome, chronic feeding tube use, microcephaly/intellectual disability/seizure disorder, esophageal dyskinesia, and gout who presented from [facility] with worsening dyspnea. He subsequently tested positive for influenza A with chest X-ray and CT consistent with worsening pneumonia/aspiration pneumonitis. Influenza A | Bacterial PNA (likely MRSA)/Aspiration Pneumonitis -Recent [facility] admission from 08/07 - 08/16 for ARF and aspiration pneumonitis. Was discharged back to [facility]. Per report, on 08/29, [facility] suspected once again aspiration pneumonitis and started treatment with solumedrol IV, cefepime, and flagyl. With worsening symptoms, he presented to [facility] on 09/01 for admission. -on admission, tested +influenza A; afebrile, no leukocytosis, neg procal, neg CRP -CT Chest: scattered opacities suggestive of PNA or aspiration pneumonitis; small bilateral pleural effusions also present. F/U chest CT in 3 months to ensure resolution is recommended. -blood cx neg -MRSA nares (08/07) positive -continue guaifenesin, Tylenol -Flu A: Completed Tamiflu & Prednisone -PNA: Completed 5 day course of Doxycycline on 09/08. Respiratory Distress | New Oxygen Requirement - Patient not on oxygen at baseline - ABG (09/02/23): pH 7.42, pCO2, 32; pO2, 86 --> no evidence of respiratory failure - Cont. Levalbuterol nebulizers formerly [facility], as surrogate for pulmonary toilet (patient unable to participate) - Breathing non-labored, saturating well 2 L nasal cannula. Hypernatremia - resolved (141 <-- 145 <-- 151 <-- 158) - Likely hyperosmolar hyponatremia due to intravascular volume depletion as this occurred during previous hospitalization. - Clinically appeared euvolemic s/p 1L 1/2NSS 09/03 - Na level acutely rising 09/05, tx w/ D5 @ 400 mL/hr w/ 3 hour BMP checks, continue insulin for mgmt of hyperglycemia - Na lvl currentyl ___, continue saline flushes to 300 mL TID in addition to 100 mL Pre/Post feeding flushes. Monitor BMP. CHF, chronic - Grade 1 diastolic; BNP 140s on admission. Monitor fluid status. Appears euvolemic. Feeding Tube - Continue aspiration precautions - Continue full nutrition through peg-tube (Nutren 2.0) - Continue saline flushes - Nutrition consulted, appreciate recs - Hendrix d/c on 09/11, patient urinating with external catheter at present Myelodysplasia (myelodysplastic syndrome), chronic - Follows with hematology - Hgb stable, 8.1 (7.6 - 10.1 during admission), stable, macrocytic anemia, has decreased during admission - Checked B12 and folate: B12, 1100; folate, > 22.3 (09/11/23) - WBC stable, 5.21 (5.21 - 9.79 during admission) - Plt stable, 218 (112 - 228 during admission) Seizure disorder: - Continue clozapine through PEG tube Gout: - Continue allopurinol through PEG tube Code: DNR/DNI FEN/GI: nutrition via PEG VTE ppx: Heparin SQ Dispo: PCU, Goal to Transition to [facility] for rehab upon discharge, case management following. Admission and Anticipated Discharge Date Admission Date: September 01, 2023 Results & Data Results & Data Vital Signs (Past 12 Hours) Vital Signs Temp Pulse Resp BP Pulse Ox O2 Del Method O2 Flow Rate 09/13/23 07:15 36.4 C L 86 16 136/72 93 Nasal Cannula 2 09/12/23 20:00 Nasal Cannula 2 09/12/23 19:57 37.0 C 89 20 110/63 96 Room Air (4) Congestive heart failure Heart failure chronicity: acute Heart failure type: unspecified Qualified Code(s): I50.9 - Heart failure, unspecified"
--- NOTE | 2023-09-13 07:52 | Hospitalist Progress Note ---
"Date of Service September 13, 2023 Assessment & Plan (1) Influenza A: (2) Pneumonia: (3) Uses feeding tube: (4) Congestive heart failure: (5) Myelodysplasia (myelodysplastic syndrome): (6) Microcephaly: (7) Seizure disorder: (8) Gout: Plan Marty Simms is a 68 year-old male with a past medical history of CHF, myelodysplastic syndrome, chronic feeding tube use, microcephaly/intellectual disability/seizure disorder, esophageal dyskinesia, and gout who presented from [facility] with worsening dyspnea and subsequently tested positive for influenza A with chest X-ray and CT consistent with worsening pneumonia/aspiration pneumonitis. Influenza A | ?Bacterial PNA (likely MRSA) -Recent [facility] admission from 08/07 - 08/16 for ARF and aspiration pneumonitis. Was discharged back to [facility]. Per report, on 08/29, [facility] suspected once again aspiration pneumonitis and started treatment with solumedrol IV, cefepime, and flagyl. With worsening symptoms, he presented to [facility] on 09/01 for admission. -on admission, tested +influenza A; afebrile, no leukocytosis, neg procal, neg CRP -CT Chest: scattered opacities suggestive of PNA or aspiration pneumonitis; small bilateral pleural effusions also present. F/U chest CT in 3 months to ensure resolution is recommended. -blood cx neg -MRSA nares (08/07) positive -continue guaifenesin, Tylenol -Flu A: Completed Tamiflu & Prednisone -PNA: Completed 5 day course of Doxycycline on 09/08. Respiratory Distress | New Oxygen Requirement - Patient not on oxygen at baseline - ABG w/o evidence of respiratory failure - Cont. Levalbuterol nebulizers [facility], as surrogate for pulmonary toilet (patient unable to participate) - Breathing non-labored, saturating well 2 L nasal cannula. Hypernatremia (158) - Likely hyperosmolar hyponatremia due to intravascular volume depletion as this occurred during previous hospitalization. - Clinically appears euvolemic s/p 1L 1/2NSS 09/03 - Na level acutely rising 09/05, tx w/ D5 @ 400 mL/hr w/ 3 hour BMP checks, continue insulin for mgmt of hyperglycemia - Na level at 145, continue saline flushes to 300 mL TID in addition to 100 mL Pre/Post feeding flushes. Continue to monitor BMP. CHF, chronic - Grade 1 diastolic, on admission BNP 140s. Monitor fluid status. Appears euvolemic. Feeding Tube - Continue aspiration precautions - Continue full nutrition through peg-tube (Nutren 2.0) - Continue saline flushes - Nutrition consulted, appreciate recs * Hendrix d/c on 09/11, patient urinating with external catheter at present Myelodysplasia (myelodysplastic syndrome), chronic - Follows with hematology, Hgb stable, though continues to decrease during admission - Macrocytic, will check on IV B12 and folate Seizure disorder: - Continue clozapine through PEG tube Gout: - Continue allopurinol through PEG tube Code: DNR/DNI FEN/GI: nutrition via PEG VTE ppx: Heparin SQ Dispo: PCU, Goal to Transition to [facility] for rehab upon discharge, case management following. * Placement pending, no updates today from case management (09/13) Admission and Anticipated Discharge Date Admission Date: September 01, 2023 Supervising Physician Co-Signing Physician Notes I personally examined the patient and verified all stark points of history and exam, discussed case, and agree with decision making with Dr Goss no new issues no new problems. sleeping. awaiting placement. vitals noted nad heent nc at mmm breathing unlabored no accessory muscles good effort skin no rashes no pallor or icterus flu/pneumonia - improved. still pending placement for short term rehab, otherwise as above Subjective Patient was seen and examined at bedside. His manager media states that he is getting antsy- he is typically active and ambulates everywhere with supervision- so he is tired of laying in bed. He coughs up some minimal mucus and is on 2L NC but is nearly at baseline. Tolerating external urinary catheter without difficulty. Review of Systems Review of Systems: As per HPI Physical Exam Constitutional: comfortable; no acute distress Eyes: + anicteric sclerae; no conjunctival abn ormality ENMT: Ears: no external ear abnormality Nose: no external nose abnormality Respiratory: normal respiratory effort; no respiratory distress Diminished lung sounds, no accessory muscle use. Nasal cannula oxygen in place. Cardiovascular: Rate/Rhythm: regular rate and regular rhythm No lower extremity edema Gastrointestinal (Abdomen): Inspection/Auscultation: abdomen not distended Percussion/Palpation: abdomen soft; abdomen nontender Skin: no rashes, warm and dry Genitourinary: External catheter in place, draining urine Results & Data Results & Data Vital Signs (Past 12 Hours) Vital Signs Temp Pulse Resp BP Pulse Ox O2 Del Method O2 Flow Rate 09/13/23 07:15 36.4 C L 86 16 136/72 93 Nasal Cannula 2 09/12/23 20:00 Nasal Cannula 2 09/12/23 19:57 37.0 C 89 20 110/63 96 Room Air Resident Activity Tracking Resident Involvement: Resident Care Provided Care Provided: Adult Hospital Medicine (4) Congestive heart failure Heart failure chronicity: acute Heart failure type: unspecified Qualified Code(s): I50.9 - Heart failure, unspecified"
[2023-09-13 07:56] LABS: BUN Creatinine Ratio 27.8 (10-20); Calcium 9.1 mg/dl (8.6-10.3); Creatinine Clr Calc Pharmacy 82.2 ml/min; Est GFR (African American) 111.1 ml/min; Est GFR (Non-African American) 95.9 ml/min; Potassium 4.3 mmol/L (3.5-5.1)
[2023-09-13] MEDS: HEPARIN SOD 5,000 UNIT/0.5 ML VIAL SQ SCH ×2 (08:38→21:03)
[2023-09-13] MEDS: allopurinoL 100 MG TAB GT SCH ×2 (08:38→21:04)
[2023-09-13] MEDS: cloZAPine 25 MG TAB PO SCH ×2 (08:38→21:01)
[2023-09-13] MEDS: FLUTICASONE PROPIONATE NA SPR 16 GM BTL SCH (08:39)
[2023-09-13] MEDS: CHLORHEXIDINE GLUCONATE 0.12% 480 ML MT SCH ×2 (08:39→21:02)
[2023-09-13] MEDS: BUTT PASTE (ZINC OXIDE 16%) 171 APPLN/57 GM JAR TOP SCH ×2 (08:40→21:05)
[2023-09-13] MEDS: guaiFENesin SUGAR FREE 100 MG/5 ML UDC GT SCH ×3 (08:44→21:06)
[2023-09-13] MEDS: INSULIN ASPART PER UNIT CHARGE SC SCH ×4 (09:25→21:00)
[2023-09-13] MEDS: NUTREN LIQD 2.0 1,000 ML BAG PEG SCH ×3 (09:26→17:23)
--- NOTE | 2023-09-13 15:20 | Billing Data ---
Date of Service September 13, 2023 Coding Level of Care Code 25955 SUB INP/OBS CARE
[2023-09-13] MEDS: cloZAPine 100 MG TAB PO SCH (21:02)
[2023-09-14] MEDS: TUBE FEEDING WATER FLUSH PEG SCH ×9 (06:02→22:35)
[2023-09-14 07:24] LABS: BUN Creatinine Ratio 32.2 (10-20); Calcium 8.8 mg/dl (8.6-10.3); Creatinine Clr Calc Pharmacy 65.8 ml/min; Est GFR (African American) 101.4 ml/min; Est GFR (Non-African American) 87.5 ml/min; Potassium 4.6 mmol/L (3.5-5.1)
[2023-09-14 07:32] LABS: Hematocrit (blood only) 24.9 % (42.0-52.0); Hemoglobin 7.8 g/dl (14.0-18.0); Mean Corpuscular Hemoglobin 33.3 pg (25.0-34.0); Mean Corpuscular Hgb Conc 31.3 g/dL (32.0-36.0); Mean Corpuscular Volume 106.4 fL (80.0-100.0); Mean Platelet Volume 12.2 fL (9.4-12.4); Nucleated RBC # (auto) 0.02 K/uL (0.00-0.12); Nucleated RBC % (auto) 0.4 %; Platelet Count 213 K/uL (130-400); RDW Coefficient of Variation 16.7 % (11.5-14.5); RDW Standard Deviation 64.8 fL (36.4-46.3); Red Blood Count 2.34 M/uL (4.70-6.10); White Blood Count 5.07 K/ul (4.8-10.8)
--- NOTE | 2023-09-14 07:51 | Hospitalist Progress Note ---
"Date of Service September 14, 2023 Assessment & Plan (1) Influenza A: (2) Pneumonia: (3) Uses feeding tube: (4) Congestive heart failure: (5) Myelodysplasia (myelodysplastic syndrome): (6) Microcephaly: (7) Seizure disorder: (8) Gout: Plan Marty Simms is a 68 year-old male with a past medical history of CHF, myelodysplastic syndrome, chronic feeding tube use, microcephaly/intellectual disability/seizure disorder, esophageal dyskinesia, and gout who presented from [facility] with worsening dyspnea and subsequently tested positive for influenza A with chest X-ray and CT consistent with worsening pneumonia/aspiration pneumonitis. Influenza A | ?Bacterial PNA (likely MRSA) -Recent [facility] admission from 08/07 - 08/16 for ARF and aspiration pneumonitis. Was discharged back to [facility]. Per report, on 08/29, [facility] suspected once again aspiration pneumonitis and started treatment with solumedrol IV, cefepime, and flagyl. With worsening symptoms, he presented to [facility] on 09/01 for admission. -on admission, tested +influenza A; afebrile, no leukocytosis, neg procal, neg CRP -CT Chest: scattered opacities suggestive of PNA or aspiration pneumonitis; small bilateral pleural effusions also present. F/U chest CT in 3 months to ensure resolution is recommended. -blood cx neg -MRSA nares (08/07) positive -continue guaifenesin, Tylenol -Flu A: Completed Tamiflu & Prednisone -PNA: Completed 5 day course of Doxycycline on 09/08. Respiratory Distress | New Oxygen Requirement - Patient not on oxygen at baseline - ABG w/o evidence of respiratory failure - Cont. Levalbuterol nebulizers formerly [facility], as surrogate for pulmonary toilet (patient unable to participate) - Breathing non-labored, saturating well 2 L nasal cannula. Hypernatremia - Likely hyperosmolar hyponatremia due to intravascular volume depletion as this occurred during previous hospitalization. - Clinically appears euvolemic s/p 1L 1/2NSS 09/03 - Na level at 139 today (09/14), continue saline flushes to 300 mL TID in addition to 100 mL Pre/Post feeding flushes. - Continue to monitor BMP, sodium appears to have normalized CHF, chronic - Grade 1 diastolic, on admission BNP 140s. Monitor fluid status. Appears euvolemic. Feeding Tube - Continue aspiration precautions - Continue full nutrition through peg-tube (Nutren 2.0) - Continue saline flushes - Nutrition consulted, appreciate recs * Ruma d/c on 09/11, patient urinating with external catheter at present Myelodysplasia (myelodysplastic syndrome), chronic - Follows with hematology, Hgb stable, though continues to decrease during admission - Macrocytic, checked B12 and folate levels which were both WNL - Hgb today at 7.8. Continue to monitor Seizure disorder: - Continue clozapine through PEG tube Gout: - Continue allopurinol through PEG tube Code: DNR/DNI FEN/GI: nutrition via PEG VTE ppx: Heparin SQ Dispo: PCU, Goal to Transition to SNF for rehab upon discharge, case management following. Admission and Anticipated Discharge Date Admission Date: September 01, 2023 Supervising Physician Co-Signing Physician Notes I personally examined the patient and verified all stark points of history and exam, discussed case, and agree with decision making with Dr Goss no new issues no new problems. awaiting placement. vitals noted nad heent nc at mmm breathing unlabored no accessory muscles good effort, no r/r/w, skin no rashes no pallor or icterus flu/pneumonia - improved. still pending placement for short term rehab, otherwise as above, essentially awaiting bureaucracy in order to move his journey forward for him Subjective Patient sleeping at time of encounter. No acute events reported overnight. Requiring 1-2L NC in the past day. Review of Systems Review of Systems: As per HPI Physical Exam Constitutional: comfortable; no acute distress Eyes: + anicteric sclerae; no conjunctival abn ormality ENMT: Ears: no external ear abnormality Nose: no external nose abnormality Respiratory: normal respiratory effort; no respiratory distress Cardiovascular: Rate/Rhythm: regular rate and regular rhythm Gastrointestinal (Abdomen): Inspection/Auscultation: abdomen not distended Percussion/Palpation: abdomen soft; abdomen nontender Skin: no rashes, warm and dry Results & Data Results & Data Vital Signs (Past 12 Hours) Vital Signs Temp Pulse Resp BP Pulse Ox O2 Del Method O2 Flow Rate 09/13/23 22:21 Nasal Cannula 2 09/13/23 20:53 36.6 C 93 H 18 109/61 95 Nasal Cannula 2 Resident Activity Tracking Resident Involvement: Resident Care Provided Care Provided: Adult Hospital Medicine (4) Congestive heart failure Heart failure chronicity: acute Heart failure type: unspecified Qualified Code(s): I50.9 - Heart failure, unspecified"
[2023-09-14] MEDS: INSULIN ASPART PER UNIT CHARGE SC SCH ×4 (09:39→22:28)
[2023-09-14] MEDS: FLUTICASONE PROPIONATE NA SPR 16 GM BTL SCH (10:00)
[2023-09-14] MEDS: NUTREN LIQD 2.0 1,000 ML BAG PEG SCH ×3 (10:00→17:34)
[2023-09-14] MEDS: guaiFENesin SUGAR FREE 100 MG/5 ML UDC GT SCH ×3 (10:00→22:41)
[2023-09-14] MEDS: BUTT PASTE (ZINC OXIDE 16%) 171 APPLN/57 GM JAR TOP SCH ×2 (10:01→22:35)
[2023-09-14] MEDS: cloZAPine 25 MG TAB PO SCH ×2 (10:01→22:34)
[2023-09-14] MEDS: CHLORHEXIDINE GLUCONATE 0.12% 480 ML MT SCH ×2 (10:01→22:34)
[2023-09-14] MEDS: HEPARIN SOD 5,000 UNIT/0.5 ML VIAL SQ SCH ×2 (10:01→22:33)
[2023-09-14] MEDS: allopurinoL 100 MG TAB GT SCH ×2 (10:01→22:34)
--- NOTE | 2023-09-14 15:25 | Billing Data ---
Date of Service September 14, 2023 Coding Level of Care Code 67351 SUB INP/OBS CARE
[2023-09-14] MEDS: LEVALBUTEROL 1.25 MG/3 ML NEB INH PRN (22:02)
[2023-09-14] MEDS: cloZAPine 100 MG TAB PO SCH (22:34)
[2023-09-15] MEDS: TUBE FEEDING WATER FLUSH PEG SCH ×9 (06:00→23:35)
[2023-09-15 07:26] LABS: Basophils # (auto) 0.02 K/uL (0.00-0.20); Basophils % (auto) 0.4 %; Eosinophils # (auto) 0.07 K/uL (0.00-0.50); Eosinophils % (auto) 1.4 %; Hematocrit (blood only) 26.7 % (42.0-52.0); Hemoglobin 8.2 g/dl (14.0-18.0); Immature Granulocytes # (auto) 0.06 K/uL (0.01-0.20); Immature Granulocytes % (auto) 1.2 %; Lymphocytes % (auto) 28.2 %; Mean Corpuscular Hemoglobin 32.9 pg (25.0-34.0); Mean Corpuscular Hgb Conc 30.7 g/dL (32.0-36.0); Mean Corpuscular Volume 107.2 fL (80.0-100.0); Mean Platelet Volume 11.7 fL (9.4-12.4); Monocytes # (auto) 0.53 K/uL (0.11-0.59); Monocytes % (auto) 10.7 %; Neutrophils # (auto) 2.89 K/uL (1.40-6.50); Neutrophils % (auto) 58.1 %; Platelet Count 219 K/uL (130-400); RDW Coefficient of Variation 16.4 % (11.5-14.5); RDW Standard Deviation 63.3 fL (36.4-46.3); Red Blood Count 2.49 M/uL (4.70-6.10); White Blood Count 4.97 K/ul (4.8-10.8)
[2023-09-15 07:31] LABS: BUN Creatinine Ratio 33.3 (10-20); Calcium 9.1 mg/dl (8.6-10.3); Creatinine Clr Calc Pharmacy 70.5 ml/min; Est GFR (African American) 104.3 ml/min; Potassium 4.5 mmol/L (3.5-5.1)
--- NOTE | 2023-09-15 07:45 | Hospitalist Progress Note ---
"Date of Service September 15, 2023 Assessment & Plan (1) Influenza A: (2) Pneumonia: (3) Uses feeding tube: (4) Congestive heart failure: (5) Myelodysplasia (myelodysplastic syndrome): (6) Microcephaly: (7) Seizure disorder: (8) Gout: Plan Marty Simms is a 68 year-old male with a past medical history of CHF, myelodysplastic syndrome, chronic feeding tube use, microcephaly/intellectual disability/seizure disorder, esophageal dyskinesia, and gout who presented from [facility] with worsening dyspnea and subsequently tested positive for influenza A with chest X-ray and CT consistent with worsening pneumonia/aspiration pneumonitis. Influenza A | ?Bacterial PNA (likely MRSA) -Recent [facility] admission from 08/07 - 08/16 for ARF and aspiration pneumonitis. Was discharged back to [facility]. Per report, on 08/29, [facility] suspected once again aspiration pneumonitis and started treatment with solumedrol IV, cefepime, and flagyl. With worsening symptoms, he presented to [facility] on 09/01 for admission. -on admission, tested +influenza A; afebrile, no leukocytosis, neg procal, neg CRP -CT Chest: scattered opacities suggestive of PNA or aspiration pneumonitis; small bilateral pleural effusions also present. F/U chest CT in 3 months to ensure resolution is recommended. -blood cx neg -MRSA nares (08/07) positive -continue guaifenesin, Tylenol -Flu A: Completed Tamiflu & Prednisone -PNA: Completed 5 day course of Doxycycline on 09/08. Respiratory Distress | New Oxygen Requirement - Patient not on oxygen at baseline - ABG w/o evidence of respiratory failure - Cont. Levalbuterol nebulizers [facility], as surrogate for pulmonary toilet (patient unable to participate) - Breathing non-labored, saturating well- has been on room air for most of the day. Hypernatremia - Likely hyperosmolar hyponatremia due to intravascular volume depletion as this occurred during previous hospitalization. - Clinically appears euvolemic s/p 1L 1/2NSS 09/03 - Na level at 139 today (09/15), continue saline flushes to 300 mL TID in addition to 100 mL Pre/Post feeding flushes. - Continue to monitor BMP, sodium appears to have normalized CHF, chronic - Grade 1 diastolic, on admission BNP 140s. Monitor fluid status. Appears euvolemic. Feeding Tube - Continue aspiration precautions - Continue full nutrition through peg-tube (Nutren 2.0) - Continue saline flushes - Nutrition consulted, appreciate recs * Ruma d/c on 09/11, patient urinating with external catheter at present Myelodysplasia (myelodysplastic syndrome), chronic - Follows with hematology, Hgb stable, though continues to decrease during admission - Macrocytic, checked B12 and folate levels which were both WNL - Hgb today at 8.2. Continue to monitor Seizure disorder: - Continue clozapine through PEG tube Gout: - Continue allopurinol through PEG tube Code: DNR/DNI FEN/GI: nutrition via PEG VTE ppx: Heparin SQ Dispo: PCU, Goal to Transition to SNF for rehab upon discharge, case management following. Admission and Anticipated Discharge Date Admission Date: September 01, 2023 Supervising Physician Co-Signing Physician Notes I personally examined the patient and verified all stark points of history and exam, discussed case, and agree with decision making with Dr Goss no new issues no new problems. still awaiting placement. vitals noted nad heent nc at mmm breathing unlabored no accessory muscles good effort skin no rashes no pallor or icterus flu/pneumonia - improved. probable sepsis POA due to same - treated and resolved. still pending placement for short term rehab, otherwise as above, essentially awaiting bureaucracy in order to move his journey forward for him Subjective Patient was seen and examined at bedside. His caregiver is also present during encounter. He is seated in the recliner, currently oxygenating well at room air. No acute events reported overnight. Review of Systems Review of Systems: As per HPI Physical Exam Constitutional: comfortable; no acute distress Eyes: + anicteric sclerae; no conjunctival abn ormality ENMT: Ears: no external ear abnormality Nose: no external nose abnormality Respiratory: normal respiratory effort; no respiratory distress Cardiovascular: Rate/Rhythm: regular rate and regular rhythm Gastrointestinal (Abdomen): Inspection/Auscultation: abdomen not distended Percussion/Palpation: abdomen soft; abdomen nontender Skin: no rashes, warm and dry Results & Data Results & Data Vital Signs (Past 12 Hours) Vital Signs Temp Pulse Resp BP Pulse Ox O2 Del Method O2 Flow Rate 09/14/23 22:11 37 C 90 18 125/66 94 Room Air 09/14/23 22:02 22 Nasal Cannula 2 09/14/23 20:00 Nasal Cannula 2 Resident Activity Tracking Resident Involvement: Resident Care Provided Care Provided: Adult Hospital Medicine (4) Congestive heart failure Heart failure chronicity: acute Heart failure type: unspecified Qualified Code(s): I50.9 - Heart failure, unspecified"
[2023-09-15] MEDS: allopurinoL 100 MG TAB GT SCH ×2 (09:44→22:01)
[2023-09-15] MEDS: guaiFENesin SUGAR FREE 100 MG/5 ML UDC GT SCH ×3 (09:44→22:02)
[2023-09-15] MEDS: FLUTICASONE PROPIONATE NA SPR 16 GM BTL SCH (09:44)
[2023-09-15] MEDS: cloZAPine 25 MG TAB PO SCH ×2 (09:45→22:01)
[2023-09-15] MEDS: CHLORHEXIDINE GLUCONATE 0.12% 480 ML MT SCH ×2 (09:45→22:02)
[2023-09-15] MEDS: HEPARIN SOD 5,000 UNIT/0.5 ML VIAL SQ SCH ×2 (09:45→22:02)
[2023-09-15] MEDS: BUTT PASTE (ZINC OXIDE 16%) 171 APPLN/57 GM JAR TOP SCH ×2 (09:46→22:03)
[2023-09-15] MEDS: NUTREN LIQD 2.0 1,000 ML BAG PEG SCH ×3 (09:46→17:22)
[2023-09-15] MEDS: INSULIN ASPART PER UNIT CHARGE SC SCH ×4 (09:48→21:33)
--- NOTE | 2023-09-15 19:56 | Billing Data ---
Date of Service September 15, 2023 Coding Level of Care Code 70770 SUB INP/OBS CARE
[2023-09-15] MEDS: cloZAPine 100 MG TAB PO SCH (22:01)
[2023-09-16] MEDS: TUBE FEEDING WATER FLUSH PEG SCH ×9 (06:12→22:25)
[2023-09-16 07:25] LABS: Hematocrit (blood only) 27.2 % (42.0-52.0); Hemoglobin 8.6 g/dl (14.0-18.0); Mean Corpuscular Hemoglobin 33.7 pg (25.0-34.0); Mean Corpuscular Hgb Conc 31.6 g/dL (32.0-36.0); Mean Corpuscular Volume 106.7 fL (80.0-100.0); Mean Platelet Volume 11.3 fL (9.4-12.4); Platelet Count 217 K/uL (130-400); RDW Coefficient of Variation 16.4 % (11.5-14.5); Red Blood Count 2.55 M/uL (4.70-6.10); White Blood Count 4.43 K/ul (4.8-10.8)
--- NOTE | 2023-09-16 07:46 | Hospitalist Progress Note ---
"Date of Service September 16, 2023 Assessment & Plan (1) Influenza A: (2) Pneumonia: (3) Uses feeding tube: (4) Congestive heart failure: (5) Myelodysplasia (myelodysplastic syndrome): (6) Microcephaly: (7) Seizure disorder: (8) Gout: Plan Marty Simms is a 68 year-old male with a past medical history of CHF, myelodysplastic syndrome, chronic feeding tube use, microcephaly/intellectual disability/seizure disorder, esophageal dyskinesia, and gout who presented from [facility] with worsening dyspnea and subsequently tested positive for influenza A with chest X-ray and CT consistent with worsening pneumonia/aspiration pneumonitis. Influenza A | ?Bacterial PNA (likely MRSA) -Recent [facility] admission from 08/07 - 08/16 for ARF and aspiration pneumonitis. Was discharged back to [facility]. Per report, on 08/29, [facility] suspected once again aspiration pneumonitis and started treatment with solumedrol IV, cefepime, and flagyl. With worsening symptoms, he presented to [facility] on 09/01 for admission. -on admission, tested +influenza A; afebrile, no leukocytosis, neg procal, neg CRP -CT Chest: scattered opacities suggestive of PNA or aspiration pneumonitis; small bilateral pleural effusions also present. F/U chest CT in 3 months to ensure resolution is recommended. -blood cx neg -MRSA nares (08/07) positive -continue guaifenesin, Tylenol -Flu A: Completed Tamiflu & Prednisone -PNA: Completed 5 day course of Doxycycline on 09/08. Hypernatremia: Resolved - Likely hyperosmolar hyponatremia due to intravascular volume depletion as this occurred during previous hospitalization. - Clinically appears euvolemic s/p 1L 1/2NSS 09/03 - Na level at 139 today (09/16), continue saline flushes to 300 mL TID in addition to 100 mL Pre/Post feeding flushes. - Continue to monitor BMP, sodium appears to have normalized CHF, chronic - Grade 1 diastolic, on admission BNP 140s. Monitor fluid status. Appears euvolemic. Feeding Tube - Continue aspiration precautions - Continue full nutrition through peg-tube (Nutren 2.0) - Continue saline flushes - Nutrition consulted, appreciate recs Myelodysplasia (myelodysplastic syndrome), chronic - Follows with hematology, Hgb stable ~8 - Macrocytic, checked B12 and folate levels which were both WNL - Hgb 8.6. 09/16 Continue to monitor Seizure disorder: - Continue clozapine through PEG tube Gout: - Continue allopurinol through PEG tube Code: DNR/DNI FEN/GI: nutrition via PEG VTE ppx: Heparin SQ Dispo: Goal to Transition to SNF for rehab upon discharge, case management following. Admission and Anticipated Discharge Date Admission Date: September 01, 2023 Supervising Physician Co-Signing Physician Notes I personally examined the patient and verified all stark points of history and ex am, discussed case, and agree with decision making with Dr Fong no new issues no new problems. caregiver notes no new needs. still awaiting placement. vitals noted nad heent nc at mmm breathing unlabored no accessory muscles good effort skin no rashes no pallor or icterus flu/pneumonia - improved. probable sepsis POA due to same - treated and resolved. still awaiting placement for short term rehab, otherwise as above, essentially awaiting bureaucracy in order to move his journey forward for him Subjective Pt seen at bedside this morning. Resting comfortably. No events overnight. Caregiver was present in room with him. Review of Systems Review of Systems: As per above Physical Exam Physical Exam: Constitutional: well-appearing, no acute distress HEENT: NCAT, no conjunctival injection CV: regular rhythm, no murmur appreciated, extremities well-perfused, no LE edema Resp: CTABL, no wheezes/rales/rhonchi appreciated, no increased work of breathing MSK: no gross deformities appreciated Skin: warm, dry, no rash appreciated Neuro: no focal neurologic deficit appreciated Results & Data Results & Data Vital Signs (Past 12 Hours) Vital Signs Temp Pulse Resp BP Pulse Ox O2 Del Method 09/15/23 21:50 Room Air 09/15/23 19:56 36.8 C 82 18 118/63 94 Room Air Resident Activity Tracking Resident Involvement: Resident Care Provided Care Provided: Adult Hospital Medicine (4) Congestive heart failure Heart failure chronicity: acute Heart failure type: unspecified Qualified Code(s): I50.9 - Heart failure, unspecified"
[2023-09-16 07:54] LABS: BUN Creatinine Ratio 28.7 (10-20); Calcium 9.3 mg/dl (8.6-10.3); Est GFR (African American) 102.8 ml/min; Est GFR (Non-African American) 88.7 ml/min; Potassium 4.4 mmol/L (3.5-5.1)
[2023-09-16] MEDS: allopurinoL 100 MG TAB GT SCH ×2 (09:16→22:00)
[2023-09-16] MEDS: cloZAPine 25 MG TAB PO SCH ×2 (09:16→22:00)
[2023-09-16] MEDS: CHLORHEXIDINE GLUCONATE 0.12% 480 ML MT SCH ×2 (09:17→22:01)
[2023-09-16] MEDS: FLUTICASONE PROPIONATE NA SPR 16 GM BTL SCH (09:17)
[2023-09-16] MEDS: BUTT PASTE (ZINC OXIDE 16%) 171 APPLN/57 GM JAR TOP SCH ×2 (09:18→22:02)
[2023-09-16] MEDS: guaiFENesin SUGAR FREE 100 MG/5 ML UDC GT SCH ×3 (09:22→22:06)
[2023-09-16] MEDS: NUTREN LIQD 2.0 1,000 ML BAG PEG SCH ×3 (09:28→17:40)
[2023-09-16] MEDS: HEPARIN SOD 5,000 UNIT/0.5 ML VIAL SQ SCH ×2 (09:44→22:01)
[2023-09-16] MEDS: INSULIN ASPART PER UNIT CHARGE SC SCH ×4 (09:52→22:30)
--- NOTE | 2023-09-16 16:56 | Billing Data ---
Date of Service September 16, 2023 Coding Level of Care Code 25104 SUB INP/OBS CARE
[2023-09-16] MEDS: cloZAPine 100 MG TAB PO SCH (22:00)
[2023-09-17] MEDS: TUBE FEEDING WATER FLUSH PEG SCH ×9 (06:02→22:23)
[2023-09-17 07:14] LABS: Hematocrit (blood only) 27.3 % (42.0-52.0); Hemoglobin 8.8 g/dl (14.0-18.0); Mean Corpuscular Hgb Conc 32.2 g/dL (32.0-36.0); Mean Corpuscular Volume 105.4 fL (80.0-100.0); Mean Platelet Volume 11.4 fL (9.4-12.4); Platelet Count 213 K/uL (130-400); RDW Coefficient of Variation 16.4 % (11.5-14.5); RDW Standard Deviation 62.8 fL (36.4-46.3); Red Blood Count 2.59 M/uL (4.70-6.10); White Blood Count 4.55 K/ul (4.8-10.8)
[2023-09-17 07:25] LABS: Calcium 9.3 mg/dl (8.6-10.3); Creatinine Clr Calc Pharmacy 63.7 ml/min; Est GFR (African American) 97.4 ml/min; Est GFR (Non-African American) 84.1 ml/min; Potassium 4.5 mmol/L (3.5-5.1)
[2023-09-17] MEDS: cloZAPine 25 MG TAB PO SCH ×2 (08:09→22:22)
[2023-09-17] MEDS: allopurinoL 100 MG TAB GT SCH ×2 (08:11→22:22)
[2023-09-17] MEDS: guaiFENesin SUGAR FREE 100 MG/5 ML UDC GT SCH ×3 (08:11→22:23)
[2023-09-17] MEDS: NUTREN LIQD 2.0 1,000 ML BAG PEG SCH ×3 (08:17→18:09)
[2023-09-17] MEDS: CHLORHEXIDINE GLUCONATE 0.12% 480 ML MT SCH ×2 (08:22→22:22)
[2023-09-17] MEDS: FLUTICASONE PROPIONATE NA SPR 16 GM BTL SCH (08:22)
[2023-09-17] MEDS: HEPARIN SOD 5,000 UNIT/0.5 ML VIAL SQ SCH ×2 (08:23→22:22)
[2023-09-17] MEDS: BUTT PASTE (ZINC OXIDE 16%) 171 APPLN/57 GM JAR TOP SCH ×2 (08:25→22:23)
[2023-09-17] MEDS: INSULIN ASPART PER UNIT CHARGE SC SCH ×4 (08:31→22:55)
--- NOTE | 2023-09-17 08:48 | Hospitalist Progress Note ---
"Date of Service September 17, 2023 Assessment & Plan (1) Influenza A: (2) Pneumonia: (3) Uses feeding tube: (4) Congestive heart failure: (5) Myelodysplasia (myelodysplastic syndrome): (6) Microcephaly: (7) Seizure disorder: (8) Gout: Plan Marty Simms is a 68 year-old male with a past medical history of CHF, myelodysplastic syndrome, chronic feeding tube use, microcephaly/intellectual disability/seizure disorder, esophageal dyskinesia, and gout who presented from [facility] with worsening dyspnea and subsequently tested positive for influenza A with chest X-ray and CT consistent with worsening pneumonia/aspiration pneumonitis. Influenza A | ?Bacterial PNA (likely MRSA) -Recent [facility] admission from 08/07 - 08/16 for ARF and aspiration pneumonitis. Was discharged back to [facility]. Per report, on 08/29, [facility] suspected once again aspiration pneumonitis and started treatment with solumedrol IV, cefepime, and flagyl. With worsening symptoms, he presented to [facility] on 09/01 for admission. -on admission, tested +influenza A; afebrile, no leukocytosis, neg procal, neg CRP -CT Chest: scattered opacities suggestive of PNA or aspiration pneumonitis; small bilateral pleural effusions also present. F/U chest CT in 3 months to ensure resolution is recommended. -blood cx neg -MRSA nares (08/07) positive -continue guaifenesin, Tylenol -Flu A: Completed Tamiflu & Prednisone -PNA: Completed 5 day course of Doxycycline on 09/08. Hypernatremia: Resolved - Likely hyperosmolar hyponatremia due to intravascular volume depletion as this occurred during previous hospitalization. - Clinically appears euvolemic s/p 1L 1/2NSS 09/03 - Na level at 139 today (09/16), continue saline flushes to 300 mL TID in addition to 100 mL Pre/Post feeding flushes. - Continue to monitor BMP, sodium appears to have normalized CHF, chronic - Grade 1 diastolic, on admission BNP 140s. Monitor fluid status. Appears euvolemic. Feeding Tube - Continue aspiration precautions - Continue full nutrition through peg-tube (Nutren 2.0) - Continue saline flushes - Nutrition consulted, appreciate recs Myelodysplasia (myelodysplastic syndrome), chronic - Follows with hematology, Hgb stable ~8 - Macrocytic, checked B12 and folate levels which were both WNL - Hgb 8.6. 09/16 Continue to monitor Seizure disorder: - Continue clozapine through PEG tube Gout: - Continue allopurinol through PEG tube Code: DNR/DNI FEN/GI: nutrition via PEG VTE ppx: Heparin SQ Dispo: Goal to Transition to SNF for rehab upon discharge, case management following. Admission and Anticipated Discharge Date Admission Date: September 01, 2023 Supervising Physician Co-Signing Physician Notes I personally examined the patient and verified all stark points of history and exam, discussed case, and agree with decision making with Dr Fong no new issues no new problems. caregiver again notes no new needs. nursing denies any new needs. still awaiting placement. vitals noted nad heent nc at mmm breathing unlabored no accessory muscles good effort skin no rashes no pallor or icterus flu/pneumonia - improved. probable sepsis POA due to same - treated and resolved. ongoing wait for placement for short term rehab, otherwise as above, essentially awaiting bureaucracy in order to move his journey forward for him Subjective Resting comfortably. Caregiver at bedside, no concerns. No events overnight. Review of Systems Review of Systems: As per above Physical Exam Physical Exam: Constitutional: well-appearing, no acute distress HEENT: NCAT, no conjunctival injection CV: extremities well-perfused Resp: no increased work of breathing MSK: no gross deformities appreciated Skin: warm, dry, no rash appreciated Neuro: no focal neurologic deficit appreciated Results & Data Results & Data Vital Signs (Past 12 Hours) Vital Signs Temp Pulse Pulse Resp BP Pulse Ox O2 Del Method 09/17/23 08:03 36.6 C 83 18 126/67 92 Room Air 09/16/23 23:00 37.1 C 96 H 18 123/71 93 Room Air 09/16/23 22:15 Room Air Resident Activity Tracking Resident Involvement: Resident Care Provided Care Provided: Adult Hospital Medicine (4) Congestive heart failure Heart failure chronicity: acute Heart failure type: unspecified Qualified Code(s): I50.9 - Heart failure, unspecified"
[2023-09-17] MEDS ORDERED: ACETAMINOPHEN 1,000 MG/100 ML VIAL IV ONE (16:32)
[2023-09-17] MEDS: LEVALBUTEROL 1.25 MG/3 ML NEB INH PRN (18:28)
--- NOTE | 2023-09-17 20:04 | Billing Data ---
Date of Service September 17, 2023 Coding Level of Care Code 73134 SUB INP/OBS CARE
[2023-09-17] MEDS: cloZAPine 100 MG TAB PO SCH (22:22)
[2023-09-18] MEDS: LEVALBUTEROL 1.25 MG/3 ML NEB INH PRN ×2 (02:35→22:48)
[2023-09-18] MEDS: TUBE FEEDING WATER FLUSH PEG SCH ×9 (05:54→22:24)
[2023-09-18] MEDS ORDERED: Nursing to Pharmacy Communication SCH (06:15)
[2023-09-18 06:36] LABS: Hematocrit (blood only) 27.7 % (42.0-52.0); Hemoglobin 8.8 g/dl (14.0-18.0); Mean Corpuscular Hemoglobin 33.3 pg (25.0-34.0); Mean Corpuscular Hgb Conc 31.8 g/dL (32.0-36.0); Mean Corpuscular Volume 104.9 fL (80.0-100.0); Mean Platelet Volume 11.7 fL (9.4-12.4); Nucleated RBC # (auto) 0.02 K/uL (0.00-0.12); Nucleated RBC % (auto) 0.3 %; Platelet Count 238 K/uL (130-400); RDW Coefficient of Variation 16.3 % (11.5-14.5); RDW Standard Deviation 62.6 fL (36.4-46.3); Red Blood Count 2.64 M/uL (4.70-6.10); White Blood Count 7.35 K/ul (4.8-10.8)
[2023-09-18 06:56] LABS: BUN Creatinine Ratio 30.4 (10-20); Calcium 9.6 mg/dl (8.6-10.3); Est GFR (African American) 87.1 ml/min; Est GFR (Non-African American) 75.2 ml/min; Potassium 4.5 mmol/L (3.5-5.1)
[2023-09-18] MEDS: NUTREN LIQD 2.0 1,000 ML BAG PEG SCH ×3 (08:30→17:59)
[2023-09-18] MEDS: cloZAPine 25 MG TAB PO SCH ×2 (09:25→20:44)
[2023-09-18] MEDS: FLUTICASONE PROPIONATE NA SPR 16 GM BTL SCH (09:25)
[2023-09-18] MEDS: CHLORHEXIDINE GLUCONATE 0.12% 480 ML MT SCH ×2 (09:25→20:44)
[2023-09-18] MEDS: allopurinoL 100 MG TAB GT SCH ×2 (09:25→20:44)
[2023-09-18] MEDS: HEPARIN SOD 5,000 UNIT/0.5 ML VIAL SQ SCH ×2 (09:26→20:43)
[2023-09-18] MEDS: BUTT PASTE (ZINC OXIDE 16%) 171 APPLN/57 GM JAR TOP SCH ×2 (09:26→20:44)
[2023-09-18] MEDS: guaiFENesin SUGAR FREE 100 MG/5 ML UDC GT SCH ×3 (09:28→20:43)
[2023-09-18] MEDS: INSULIN ASPART PER UNIT CHARGE SC SCH ×3 (12:36→23:55)
--- NOTE | 2023-09-18 14:13 | Hospitalist Progress Note ---
"Date of Service September 18, 2023 Assessment & Plan (1) Influenza A: (2) Pneumonia: (3) Uses feeding tube: (4) Congestive heart failure: (5) Myelodysplasia (myelodysplastic syndrome): (6) Microcephaly: (7) Seizure disorder: (8) Gout: Plan Marty Simms is a 68 year-old male with a past medical history of CHF, myelodysplastic syndrome, chronic feeding tube use, microcephaly/intellectual disability/seizure disorder, esophageal dyskinesia, and gout who presented from [facility] with worsening dyspnea and subsequently tested positive for influenza A with chest X-ray and CT consistent with worsening pneumonia/aspiration pneumonitis. Influenza A | ?Bacterial PNA (likely MRSA): Resolved -Recent [facility] admission from 08/07 - 08/16 for ARF and aspiration pneumonitis. Was discharged back to [facility]. Per report, on 08/29, [facility] suspected once again aspiration pneumonitis and started treatment with solumedrol IV, cefepime, and flagyl. With worsening symptoms, he presented to [facility] on 09/01 for admission. On admission, tested +influenza A; afebrile, no leukocytosis, neg procal, neg CRP -CT Chest: scattered opacities suggestive of PNA or aspiration pneumonitis; small bilateral pleural effusions also present. F/U chest CT in 3 months to ensure resolution is recommended. -MRSA nares (08/07) positive -Flu A: Completed Tamiflu & Prednisone -PNA: Completed 5 day course of Doxycycline on 09/08. Hypernatremia: Resolved - Likely hyperosmolar hyponatremia due to intravascular volume depletion as this occurred during previous hospitalization. - Clinically appears euvolemic s/p 1L 1/2NSS 09/03 - Na level at 139 today (09/18), continue saline flushes to 300 mL TID in addition to 100 mL Pre/Post feeding flushes. - Continue to monitor BMP, sodium appears to have normalized CHF, chronic - Grade 1 diastolic, on admission BNP 140s. Monitor fluid status. Appears euvolemic. Feeding Tube - Continue aspiration precautions - Continue full nutrition through peg-tube (Nutren 2.0) - Continue saline flushes - Nutrition consulted, appreciate recs Myelodysplasia (myelodysplastic syndrome), chronic - Follows with hematology, Hgb stable ~8 - Macrocytic, checked B12 and folate levels which were both WNL Seizure disorder: - Continue clozapine through PEG tube Gout: - Continue allopurinol through PEG tube Code: DNR/DNI FEN/GI: nutrition via PEG VTE ppx: Heparin SQ Dispo: Goal to Transition to SNF for rehab upon discharge, case management [facility]. Admission and Anticipated Discharge Date Admission Date: September 01, 2023 Supervising Physician Co-Signing Physician Notes Attending Physician Supervision Note: I independently interviewed and examined the patient and verified the stark hist ory and physical, reviewed labs and image studies and agree with findings and care plan noted above. no new issues no new problems. caregiver again notes no new needs. nursing denies any new needs. still awaiting placement. vitals noted nad heent nc at mmm breathing unlabored no accessory muscles good effort skin no rashes no pallor or icterus flu/pneumonia - improved. probable sepsis POA due to same - treated and resolved. ongoing wait for placement for short term rehab, otherwise as above, with h/o PEG and aspiration - consider GOC discussion at the facility Subjective Patient was seen and examined at bedside. No acute events reported overnight. Patient's [facility] caregiver was at bedside, states that patient is eager to move around more- has been trying to spend more time in the recliner during day. Review of Systems Review of Systems: As per above Physical Exam Constitutional: comfortable; no acute distress Eyes: + anicteric sclerae; no conjunctival abn ormality ENMT: Ears: no external ear abnormality Nose: no external nose abnormality Respiratory: normal respiratory effort; no respiratory distress Cardiovascular: Rate/Rhythm: regular rate and regular rhythm Gastrointestinal (Abdomen): Inspection/Auscultation: abdomen not distended Percussion/Palpation: abdomen soft; abdomen nontender Skin: no rashes, warm and dry Results & Data Results & Data Vital Signs (Past 12 Hours) Vital Signs Temp Pulse Resp BP Pulse Ox O2 Del Method 09/18/23 08:15 Room Air 09/18/23 07:09 36.5 C 88 16 131/56 L 91 Room Air 09/18/23 02:35 88 18 93 Room Air Resident Activity Tracking Resident Involvement: Resident Care Provided Care Provided: Adult Hospital Medicine (4) Congestive heart failure Heart failure chronicity: acute Heart failure type: unspecified Qualified Code(s): I50.9 - Heart failure, unspecified"
[2023-09-18] MEDS: cloZAPine 100 MG TAB PO SCH (20:44)
[2023-09-19] MEDS: LEVALBUTEROL 1.25 MG/3 ML NEB INH PRN ×2 (05:28→22:50)
[2023-09-19] MEDS: INSULIN ASPART PER UNIT CHARGE SC SCH ×3 (05:57→17:59)
[2023-09-19] MEDS: TUBE FEEDING WATER FLUSH PEG SCH ×9 (05:57→23:15)
[2023-09-19] MEDS: allopurinoL 100 MG TAB GT SCH ×2 (07:42→20:37)
[2023-09-19] MEDS: cloZAPine 25 MG TAB PO SCH ×2 (07:42→20:37)
[2023-09-19] MEDS: HEPARIN SOD 5,000 UNIT/0.5 ML VIAL SQ SCH ×2 (07:43→20:36)
[2023-09-19] MEDS: guaiFENesin SUGAR FREE 100 MG/5 ML UDC GT SCH ×3 (08:00→20:37)
[2023-09-19] MEDS: CHLORHEXIDINE GLUCONATE 0.12% 480 ML MT SCH ×2 (08:00→20:37)
[2023-09-19] MEDS: FLUTICASONE PROPIONATE NA SPR 16 GM BTL SCH (08:00)
[2023-09-19] MEDS: BUTT PASTE (ZINC OXIDE 16%) 171 APPLN/57 GM JAR TOP SCH ×2 (08:01→20:37)
[2023-09-19] MEDS: NUTREN LIQD 2.0 1,000 ML BAG PEG SCH ×3 (09:34→17:57)
--- NOTE | 2023-09-19 17:07 | Hospitalist Progress Note ---
"Date of Service September 19, 2023 Assessment & Plan (1) Influenza A: (2) Pneumonia: (3) Uses feeding tube: (4) Congestive heart failure: (5) Myelodysplasia (myelodysplastic syndrome): (6) Microcephaly: (7) Seizure disorder: (8) Gout: Plan Marty Simms is a 68 year-old male with a past medical history of CHF, myelodysplastic syndrome, chronic feeding tube use, microcephaly/intellectual disability/seizure disorder, esophageal dyskinesia, and gout who presented from [facility] with worsening dyspnea and subsequently tested positive for influenza A with chest X-ray and CT consistent with worsening pneumonia/aspiration pneumonitis. Influenza A | ?Bacterial PNA (likely MRSA): Resolved -Recent [facility] admission from 08/07 - 08/16 for ARF and aspiration pneumonitis. Was discharged back to [facility]. Per report, on 08/29, [facility] suspected once again aspiration pneumonitis and started treatment with solumedrol IV, cefepime, and flagyl. With worsening symptoms, he presented to [facility] on 09/01 for admission. On admission, tested +influenza A; afebrile, no leukocytosis, neg procal, neg CRP -CT Chest: scattered opacities suggestive of PNA or aspiration pneumonitis; small bilateral pleural effusions also present. F/U chest CT in 3 months to ensure resolution is recommended. -MRSA nares (08/07) positive -Flu A: Completed Tamiflu & Prednisone -PNA: Completed 5 day course of Doxycycline on 09/08. Hypernatremia: Resolved - Likely hyperosmolar hyponatremia due to intravascular volume depletion as this occurred during previous hospitalization. - Clinically appears euvolemic s/p 1L 1/2NSS 09/03 - Na level at 139 (1/8), continue saline flushes to 300 mL TID in addition to 100 mL Pre/Post feeding flushes. - Continue to monitor BMP q2day,, sodium appears to have normalized CHF, chronic - Grade 1 diastolic, on admission BNP 140s. Monitor fluid status. Appears euvolemic. Feeding Tube - Continue aspiration precautions - Continue full nutrition through peg-tube (Nutren 2.0), Continue saline flushes - Nutrition consulted, appreciate recs - Consider goals of care discussion in future. At increased risk of aspiration at baseline. Myelodysplasia (myelodysplastic syndrome), chronic - Follows with hematology, Hgb stable ~8 - Macrocytic, checked B12 and folate levels which were both WNL Seizure disorder: - Continue clozapine through PEG tube Gout: - Continue allopurinol through PEG tube Code: DNR/DNI FEN/GI: nutrition via PEG VTE ppx: Heparin SQ Dispo: Goal to Transition to SNF for rehab upon discharge, case management following. Admission and Anticipated Discharge Date Admission Date: September 01, 2023 Supervising Physician Co-Signing Physician Notes Attending Physician Supervision Note: I independently interviewed and examined the patient and verified the stark history and physical, reviewed labs and image studies and agree with findings and care plan noted above. no new issues no new problems. caregiver at bedside. patient sitting in chair comfortable. vitals noted nad heent nc at mmm breathing unlabored no accessory muscles good effort skin no rashes no pallor or icterus flu/pneumonia - improved. probable sepsis POA due to same - treated and resolved. ongoing wait for placement for short term rehab, otherwise as above, with h/o PEG and aspiration - high risk for recurrence. possible discharge in am Subjective Patient seen and examined at bedside. Breathing on room air, no acute distress. Awaiting placement. Review of Systems Review of Systems: As per above Physical Exam Constitutional: comfortable; no acute distress Eyes: + anicteric sclerae; no conjunctival abn ormality ENMT: Ears: no external ear abnormality Nose: no external nose abnormality Respiratory: normal respiratory effort; no respiratory distress Cardiovascular: Rate/Rhythm: regular rate and regular rhythm Gastrointestinal (Abdomen): Inspection/Auscultation: abdomen not distended Percussion/Palpation: abdomen soft; abdomen nontender Skin: no rashes, warm and dry Genitourinary: External urinary catheter in place Results & Data Results & Data Vital Signs (Past 12 Hours) Vital Signs Temp Pulse Pulse Resp BP BP Pulse Ox 09/19/23 15:19 36.7 C 92 H 16 126/79 93 09/19/23 10:28 09/19/23 07:24 36.5 C 83 16 131/73 95 09/19/23 05:29 86 18 93 O2 Del Method 09/19/23 15:19 Room Air 09/19/23 10:28 Room Air 09/19/23 07:24 Room Air 09/19/23 05:29 Room Air Resident Activity Tracking Resident Involvement: Resident Care Provided Care Provided: Adult Hospital Medicine (4) Congestive heart failure Heart failure chronicity: acute Heart failure type: unspecified Qualified Code(s): I50.9 - Heart failure, unspecified"
[2023-09-19] MEDS: cloZAPine 100 MG TAB PO SCH (20:37)
[2023-09-20] MEDS: INSULIN ASPART PER UNIT CHARGE SC SCH ×4 (00:15→18:44)
[2023-09-20] MEDS: TUBE FEEDING WATER FLUSH PEG SCH ×9 (06:08→23:49)
[2023-09-20 08:04] LABS: Hematocrit (blood only) 27.2 % (42.0-52.0); Hemoglobin 8.7 g/dl (14.0-18.0); Mean Corpuscular Hemoglobin 33.3 pg (25.0-34.0); Mean Corpuscular Volume 104.2 fL (80.0-100.0); Mean Platelet Volume 11.1 fL (9.4-12.4); Nucleated RBC # (auto) 0.02 K/uL (0.00-0.12); Nucleated RBC % (auto) 0.3 %; Platelet Count 243 K/uL (130-400); RDW Coefficient of Variation 16.3 % (11.5-14.5); RDW Standard Deviation 61.8 fL (36.4-46.3); Red Blood Count 2.61 M/uL (4.70-6.10); White Blood Count 5.83 K/ul (4.8-10.8)
[2023-09-20 08:17] LABS: BUN Creatinine Ratio 40.4 (10-20); Calcium 9.4 mg/dl (8.6-10.3); Creatinine Clr Calc Pharmacy 66.5 ml/min; Est GFR (African American) 101.8 ml/min; Est GFR (Non-African American) 87.9 ml/min; Potassium 4.5 mmol/L (3.5-5.1)
[2023-09-20] MEDS: HEPARIN SOD 5,000 UNIT/0.5 ML VIAL SQ SCH ×2 (09:14→20:20)
[2023-09-20] MEDS: allopurinoL 100 MG TAB GT SCH ×2 (09:15→20:20)
[2023-09-20] MEDS: CHLORHEXIDINE GLUCONATE 0.12% 480 ML MT SCH ×2 (09:15→20:21)
[2023-09-20] MEDS: cloZAPine 25 MG TAB PO SCH ×2 (09:15→20:20)
[2023-09-20] MEDS: BUTT PASTE (ZINC OXIDE 16%) 171 APPLN/57 GM JAR TOP SCH ×2 (09:16→20:21)
[2023-09-20] MEDS: FLUTICASONE PROPIONATE NA SPR 16 GM BTL SCH (09:16)
[2023-09-20] MEDS: guaiFENesin SUGAR FREE 100 MG/5 ML UDC GT SCH ×3 (09:16→20:21)
[2023-09-20] MEDS: NUTREN LIQD 2.0 1,000 ML BAG PEG SCH ×3 (09:56→17:38)
--- NOTE | 2023-09-20 15:43 | Hospitalist Progress Note ---
"Date of Service September 20, 2023 Assessment & Plan (1) Influenza A: (2) Pneumonia: (3) Uses feeding tube: (4) Congestive heart failure: (5) Myelodysplasia (myelodysplastic syndrome): (6) Microcephaly: (7) Seizure disorder: (8) Gout: Plan Marty Simms is a 68 year-old male with a past medical history of CHF, myelodysplastic syndrome, chronic feeding tube use, microcephaly/intellectual disability/seizure disorder, esophageal dyskinesia, and gout who presented from [facility] with worsening dyspnea and subsequently tested positive for influenza A with chest X-ray and CT consistent with worsening pneumonia/aspiration pneumonitis. Influenza A | ?Bacterial PNA (likely MRSA): Resolved -Recent [facility] admission from 08/07 - 08/16 for ARF and aspiration pneumonitis. Was discharged back to [facility]. Per report, on 08/29, [facility] suspected once again aspiration pneumonitis and started treatment with solumedrol IV, cefepime, and flagyl. With worsening symptoms, he presented to [facility] on 09/01 for admission. On admission, tested +influenza A; afebrile, no leukocytosis, neg procal, neg CRP -CT Chest: scattered opacities suggestive of PNA or aspiration pneumonitis; small bilateral pleural effusions also present. F/U chest CT in 3 months to ensure resolution is recommended. -MRSA nares (08/07) positive -Flu A: Completed Tamiflu & Prednisone -PNA: Completed 5 day course of Doxycycline on 09/08. Hypernatremia: Resolved - Likely hyperosmolar hyponatremia due to intravascular volume depletion as this occurred during previous hospitalization. - Clinically appears euvolemic s/p 1L 1/2NSS 09/03 - Na level at 135 (10), continue saline flushes to 300 mL TID in addition to 100 mL Pre/Post feeding flushes. - Continue to monitor BMP q2day, sodium appears to have normalized CHF, chronic - Grade 1 diastolic, on admission BNP 140s. Monitor fluid status. Appears euvolemic. Feeding Tube - Continue aspiration precautions - Continue full nutrition through peg-tube (Nutren 2.0), Continue saline flushes - Nutrition consulted, appreciate recs - Consider goals of care discussion in future. At increased risk of aspiration at baseline. Myelodysplasia (myelodysplastic syndrome), chronic - Follows with hematology, Hgb stable ~8 - Macrocytic, checked B12 and folate levels which were both WNL Seizure disorder: - Continue clozapine through PEG tube Gout: - Continue allopurinol through PEG tube Code: DNR/DNI FEN/GI: nutrition via PEG VTE ppx: Heparin SQ Dispo: Goal to Transition to SNF for rehab upon discharge, case management following. Admission and Anticipated Discharge Date Admission Date: September 01, 2023 Supervising Physician Co-Signing Physician Notes Attending Physician Supervision Note: I independently interviewed and examined the patient and verified the stark history and physical, reviewed labs and image studies and agree with findings and care plan noted above. no new problems/concern. caregiver at bedside. patient sitting in chair comfortable and napping. vitals noted nad heent nc at mmm breathing unlabored no accessory muscles good effort skin no rashes no pallor or icterus flu/pneumonia - improved. probable sepsis POA due to same - treated and resolved. ongoing wait for placement for short term rehab, otherwise as above, with h/o PEG and aspiration - high risk for recurrence. Subjective Patient seen and examined at bedside. No acute events reported overnight. Patient sleeping during encounter, in no acute distress. Review of Systems Review of Systems: As per above Physical Exam Constitutional: comfortable; no acute distress Eyes: + anicteric sclerae; no conjunctival abn ormality ENMT: Ears: no external ear abnormality Nose: no external nose abnormality Respiratory: normal respiratory effort; no respiratory distress Cardiovascular: Rate/Rhythm: regular rate and regular rhythm Gastrointestinal (Abdomen): Inspection/Auscultation: abdomen not distended Percussion/Palpation: abdomen soft; abdomen nontender Skin: no rashes, warm and dry Genitourinary: External lance catheter in place. Results & Data Results & Data Vital Signs (Past 12 Hours) Vital Signs Temp Pulse Resp BP Pulse Ox O2 Del Method 09/20/23 14:45 36.7 C 91 H 18 128/70 94 Room Air 09/20/23 08:00 Room Air 09/20/23 05:47 36.8 C 94 H 16 181/83 H 94 Room Air Resident Activity Tracking Resident Involvement: Resident Care Provided Care Provided: Adult Hospital Medicine (4) Congestive heart failure Heart failure chronicity: acute Heart failure type: unspecified Qualified Code(s): I50.9 - Heart failure, unspecified"
[2023-09-20] MEDS: cloZAPine 100 MG TAB PO SCH (20:20)
[2023-09-21] MEDS: TUBE FEEDING WATER FLUSH PEG SCH ×9 (05:31→22:01)
[2023-09-21] MEDS: INSULIN ASPART PER UNIT CHARGE SC SCH ×4 (05:31→18:42)
[2023-09-21] MEDS: LEVALBUTEROL 1.25 MG/3 ML NEB INH PRN (05:59)
--- NOTE | 2023-09-21 08:00 | Hospitalist Progress Note ---
"Date of Service September 21, 2023 Assessment & Plan (1) Influenza A: (2) Pneumonia: (3) Uses feeding tube: (4) Congestive heart failure: (5) Myelodysplasia (myelodysplastic syndrome): (6) Microcephaly: (7) Seizure disorder: (8) Gout: Plan Marty Simms is a 68 year-old male with a past medical history of CHF, myelodysplastic syndrome, chronic feeding tube use, microcephaly/intellectual disability/seizure disorder, esophageal dyskinesia, and gout who presented from [facility] with worsening dyspnea and subsequently tested positive for influenza A with chest X-ray and CT consistent with worsening pneumonia/aspiration pneumonitis. Influenza A | ?Bacterial PNA (likely MRSA): Resolved -Recent [facility] admission from 08/07 - 08/16 for ARF and aspiration pneumonitis. Was discharged back to [facility]. Per report, on 08/29, [facility] suspected once again aspiration pneumonitis and started treatment with solumedrol IV, cefepime, and flagyl. With worsening symptoms, he presented to [facility] on 09/01 for admission. On admission, tested +influenza A; afebrile, no leukocytosis, neg procal, neg CRP -CT Chest: scattered opacities suggestive of PNA or aspiration pneumonitis; small bilateral pleural effusions also present. F/U chest CT in 3 months to ensure resolution is recommended. -MRSA nares (08/07) positive -Flu A: Completed Tamiflu & Prednisone -PNA: Completed 5 day course of Doxycycline on 09/08. Hypernatremia: Resolved - Likely hyperosmolar hyponatremia due to intravascular volume depletion as this occurred during previous hospitalization. - Na level at 135 (09/21), decrease saline flushes to 250 mL (down from 300) TID in addition to 100 mL Pre/Post feeding flushes. - Continue to monitor BMP q2day CHF, chronic - Grade 1 diastolic, on admission BNP 140s. Monitor fluid status. Appears euvolemic. Feeding Tube - Continue aspiration precautions - Continue full nutrition through peg-tube (Nutren 2.0), Continue saline flushes - Consider goals of care discussion in future. At increased risk of aspiration at baseline. - Some skin irritation around PEG tube, will add Miconazole powder PRN Myelodysplasia (myelodysplastic syndrome), chronic - Follows with hematology, Hgb stable ~8 - Macrocytic, checked B12 and folate levels which were both WNL [facility] - Continue clozapine through PEG tube Gout: - Continue allopurinol through PEG tube Code: DNR/DNI FEN/GI: nutrition via PEG VTE ppx: Heparin SQ Dispo: Goal to Transition to SNF for rehab upon discharge, case management following. Admission and Anticipated Discharge Date Admission Date: September 01, 2023 Supervising Physician Co-Signing Physician Notes Attending Physician Supervision Note: I independently interviewed and examined the patient and verified the stark history and physical, reviewed labs and image studies and agree with findings and care plan noted above. no new problems/concern. caregiver at bedside. patient sitting in chair comfortable and more alert. vitals noted nad heent nc at mmm breathing unlabored no accessory muscles good effort skin no rashes no pallor or icterus flu/pneumonia - improved. probable sepsis POA due to same - treated and resolved. ongoing wait for placement for short term rehab, otherwise as above, with h/o PEG and aspiration - high risk for recurrence. Subjective Patient seen and examined at bedside. No acute events reported overnight. Nursing notes that there is some redness/irritation around his PEG tube. Awaiting placement at this time, medically cleared. Review of Systems Review of Systems: As per above Physical Exam Constitutional: comfortable; no acute distress Eyes: + anicteric sclerae; no conjunctival abn ormality ENMT: Ears: no external ear abnormality Nose: no external nose abnormality Respiratory: normal respiratory effort; no respiratory distress Cardiovascular: No lower extremity edema, limbs well perfused Skin: no rashes, warm and dry Genitourinary: External urinary catheter in place Results & Data Results & Data Vital Signs (Past 12 Hours) Vital Signs Temp Pulse Resp BP BP Pulse Ox O2 Del Method 09/21/23 07:25 36.4 C L 85 12 124/64 95 Room Air 09/21/23 05:59 98 H 16 90 Room Air 09/20/23 21:58 36.2 C L 98 H 18 110/58 L 92 Room Air 09/20/23 20:00 Room Air Resident Activity Tracking Resident Involvement: Resident Care Provided Care Provided: Adult Hospital Medicine (4) Congestive heart failure Heart failure chronicity: acute Heart failure type: unspecified Qualified Code(s): I50.9 - Heart failure, unspecified"
[2023-09-21 08:16] LABS: Anion Gap 6 (3-11); BUN Creatinine Ratio 39.8 (10-20); Blood Urea Nitrogen 37 mg/dl (6-23); Calcium 9.3 mg/dl (8.6-10.3); Carbon Dioxide 28 mmol/L (21-32); Chloride 101 mmol/L (98-107); Creatinine Clr Calc Pharmacy 63.7 ml/min; Est GFR (African American) 97.4 ml/min; Est GFR (Non-African American) 84.1 ml/min; Glucose 103 mg/dl (70-99(Fasting)); Sodium 135 mmol/L (136-145)
[2023-09-21] MEDS: HEPARIN SOD 5,000 UNIT/0.5 ML VIAL SQ SCH ×2 (09:11→21:45)
[2023-09-21] MEDS: cloZAPine 25 MG TAB PO SCH ×2 (09:11→21:45)
[2023-09-21] MEDS: FLUTICASONE PROPIONATE NA SPR 16 GM BTL SCH (09:12)
[2023-09-21] MEDS: guaiFENesin SUGAR FREE 100 MG/5 ML UDC GT SCH ×3 (09:12→21:45)
[2023-09-21] MEDS: allopurinoL 100 MG TAB GT SCH ×2 (09:12→21:45)
[2023-09-21] MEDS: CHLORHEXIDINE GLUCONATE 0.12% 480 ML MT SCH ×2 (09:12→21:45)
[2023-09-21] MEDS: BUTT PASTE (ZINC OXIDE 16%) 171 APPLN/57 GM JAR TOP SCH ×2 (09:13→21:45)
[2023-09-21] MEDS ORDERED: MICONAZOLE NITRATE POWDER 85 GM EXT PRN (10:12)
[2023-09-21] MEDS: NUTREN LIQD 2.0 1,000 ML BAG PEG SCH ×3 (11:10→18:40)
[2023-09-21] MEDS: cloZAPine 100 MG TAB PO SCH (21:45)
[2023-09-22] MEDS: INSULIN ASPART PER UNIT CHARGE SC SCH ×3 (00:26→12:32)
[2023-09-22] MEDS: TUBE FEEDING WATER FLUSH PEG SCH ×6 (06:02→15:00)
[2023-09-22 07:34] LABS: Basophils # (auto) 0.05 K/uL (0.00-0.20); Basophils % (auto) 0.7 %; Eosinophils # (auto) 0.22 K/uL (0.00-0.50); Hemoglobin 8.8 g/dl (14.0-18.0); Immature Granulocytes # (auto) 0.14 K/uL (0.01-0.20); Immature Granulocytes % (auto) 1.9 %; Lymphocytes # (auto) 1.67 K/uL (1.20-3.40); Lymphocytes % (auto) 22.9 %; Mean Corpuscular Hemoglobin 33.2 pg (25.0-34.0); Mean Corpuscular Hgb Conc 31.4 g/dL (32.0-36.0); Mean Corpuscular Volume 105.7 fL (80.0-100.0); Mean Platelet Volume 11.5 fL (9.4-12.4); Monocytes # (auto) 0.87 K/uL (0.11-0.59); Neutrophils # (auto) 4.33 K/uL (1.40-6.50); Neutrophils % (auto) 59.5 %; Nucleated RBC # (auto) 0.03 K/uL (0.00-0.12); Nucleated RBC % (auto) 0.4 %; Platelet Count 268 K/uL (130-400); RDW Coefficient of Variation 16.5 % (11.5-14.5); Red Blood Count 2.65 M/uL (4.70-6.10); White Blood Count 7.28 K/ul (4.8-10.8)
[2023-09-22 08:14] LABS: Calcium 9.5 mg/dl (8.6-10.3); Potassium 3.9 mmol/L (3.5-5.1)
[2023-09-22 08:19] LABS: BUN Creatinine Ratio 38.2 (10-20); Creatinine Clr Calc Pharmacy 66.5 ml/min; Est GFR (African American) 101.8 ml/min; Est GFR (Non-African American) 87.9 ml/min
[2023-09-22] MEDS: guaiFENesin SUGAR FREE 100 MG/5 ML UDC GT SCH ×2 (08:32→13:08)
[2023-09-22] MEDS: FLUTICASONE PROPIONATE NA SPR 16 GM BTL SCH (08:32)
[2023-09-22] MEDS: allopurinoL 100 MG TAB GT SCH (08:32)
[2023-09-22] MEDS: CHLORHEXIDINE GLUCONATE 0.12% 480 ML MT SCH (08:32)
[2023-09-22] MEDS: HEPARIN SOD 5,000 UNIT/0.5 ML VIAL SQ SCH (08:33)
[2023-09-22] MEDS: BUTT PASTE (ZINC OXIDE 16%) 171 APPLN/57 GM JAR TOP SCH (08:33)
[2023-09-22] MEDS: NUTREN LIQD 2.0 1,000 ML BAG PEG SCH ×2 (08:50→12:32)
[2023-09-22] MEDS: cloZAPine 25 MG TAB PO SCH (10:41)
--- NOTE | 2023-09-22 11:26 | Hospitalist Progress Note ---
"Date of Service September 22, 2023 Assessment & Plan (1) Influenza A: (2) Pneumonia: (3) Uses feeding tube: (4) Congestive heart failure: (5) Myelodysplasia (myelodysplastic syndrome): (6) Microcephaly: (7) Seizure disorder: (8) Gout: Plan Marty Simms is a 68 year-old male with a past medical history of CHF, myelodysplastic syndrome, chronic feeding tube use, microcephaly/intellectual disability/seizure disorder, esophageal dyskinesia, and gout who presented from [facility] with worsening dyspnea and subsequently tested positive for influenza A with chest X-ray and CT consistent with worsening pneumonia/aspiration pneumonitis. Influenza A | ?Bacterial PNA (likely MRSA): Resolved -Recent [facility] admission from 08/07 - 08/16 for ARF and aspiration pneumonitis. Was discharged back to [facility]. Per report, on 08/29, [facility] suspected once again aspiration pneumonitis and started treatment with solumedrol IV, cefepime, and flagyl. With worsening symptoms, he presented to [facility] on 09/01 for admission. On admission, tested +influenza A; afebrile, no leukocytosis, neg procal, neg CRP -CT Chest: scattered opacities suggestive of PNA or aspiration pneumonitis; small bilateral pleural effusions also present. F/U chest CT in 3 months to ensure resolution is recommended. -MRSA nares (08/07) positive -Flu A: Completed Tamiflu & Prednisone -PNA: Completed 5 day course of Doxycycline on 09/08. Hypernatremia: Resolved - Likely hyperosmolar hyponatremia due to intravascular volume depletion as this occurred during previous hospitalization. - Na level at 135 (09/21), decrease saline flushes to 250 mL (down from 300) TID in addition to 100 mL Pre/Post feeding flushes. - Continue to monitor BMP q2day CHF, chronic - Grade 1 diastolic, on admission BNP 140s. Monitor fluid status. Appears euvolemic. Feeding Tube - Continue aspiration precautions - Continue full nutrition through peg-tube (Nutren 2.0), Continue saline flushes - Consider goals of care discussion in future. At increased risk of aspiration at baseline. - Some skin irritation around PEG tube, will add Miconazole powder PRN Myelodysplasia (myelodysplastic syndrome), chronic - Follows with hematology, Hgb stable ~8 - Macrocytic, checked B12 and folate levels which were both WNL Seizure disorder - Continue clozapine through PEG tube Gout: - Continue allopurinol through PEG tube Code: DNR/DNI FEN/GI: nutrition via PEG VTE ppx: Heparin SQ Dispo: Goal to Transition to SNF for rehab upon discharge, case management following. Admission and Anticipated Discharge Date Admission Date: September 01, 2023 Review of Systems Review of Systems: As per above Physical Exam Constitutional: comfortable; no acute distress Eyes: + anicteric sclerae; no conjunctival abn ormality ENMT: Ears: no external ear abnormality Nose: no external nose abnormality Respiratory: normal respiratory effort; no respiratory distress Cardiovascular: Rate/Rhythm: regular rate and regular rhythm Gastrointestinal (Abdomen): Inspection/Auscultation: abdomen not distended Percussion/Palpation: abdomen soft; abdomen nontender Skin: no rashes, warm and dry Results & Data Results & Data Vital Signs (Past 12 Hours) Vital Signs Temp Pulse Resp BP Pulse Ox O2 Del Method 09/22/23 08:00 Room Air 09/22/23 07:34 36.7 C 94 H 18 141/63 H 91 Room Air 09/22/23 04:01 37.4 C 97 H 18 144/72 H 93 Room Air Resident Activity Tracking Resident Involvement: Resident Care Provided Care Provided: Adult Hospital Medicine (4) Congestive heart failure Heart failure chronicity: acute Heart failure type: unspecified Qualified Code(s): I50.9 - Heart failure, unspecified"
--- NOTE | 2023-09-22 14:34 | Discharge Summary ---
"Date of Service September 22, 2023 Admission HPI Per Admitting Provider Marty is a 68yo male with PMH of microcephaly, nonverbal at baseline, chronic dysphagia, esophageal dyskinesia chronic feeding tube, chronic intellectual disability, absent right kidney, gout, dysphagia, seizure disorder, manicdepressive disorder, urinary incontinence, myelodysplasia, and CHF. He presented from [facility] for worsening SOB/dyspnea that started the weekend of 08/25 - 08/27. Patient is nonverbal and cannot provide a history. Patient's american sign language interpreter (Kyleigh; from [facility]) is present at the bedside and provides a history; she has been working with him for the past 4 years. He was previously being treated at [facility] for aspiration pneumonitis; receiving cefepime and 1000 mg IV daily and Flagyl 250 mg IV q8h. his cough worsened over the past week, and caretakers noticed that he was more lethargic and tired. They have been providing nebulizers 4 times daily, which have helped. Patient was reportedly down to 83% SpO2 on RA. He is not on oxygen supplementation at baseline. Influenza positive on arrival. Patient exhibits mild hypertension at 143/68 at time of admission; SpO2 94% on 4 LNC; vitals otherwise stable. ED course: Tamiflu 75 mg p.o. NSS 1000 mL IV ROS: Patient is nonverbal; the following is from patient's american sign language interpreter: She endorses worsening SOB, and urinary retention (bladder scanned; full; lance was placed) She denies fever, chills, nightsweats, abdominal pain, or N/V. Unsure of chest pain. No PMH of [place], DVT/PE, CVA, DM, or cancer DO NOT RESUSCITATE order on paper chart; signed on 02/14/[address] Dany De La Garza, DO Admission Exam Per Admitting Provider General: Acute physical/respiratory distress; nonverbal; 92% on OxyMask 4L; frail; non-toxic appearing; cooperative HEENT: Microcephaly; no scleral icterus; PERRLA w/ EOMs intact; dry mucus membrane; unable to assess vision and hearing Neck: supple; no lymphadenopathy; trachea midline Skin: warm, dry without signs of tenting; no cyanosis; no rashes, bruising, lesions, or erythema noted CV: chest wall NTP; RRR; S1/S2 normal; no murmurs/rubs/gallops; pulses intact and symmetric at radial, DP, and PT Lungs: Acute respiratory distress; symmetrical chest wall expansion; minimal wheezing auscultated across all lung espinoza ABD: Soft, NTP; BS present; no rebound/guarding; no distention MSK: no tics or fasciculations; no edema noted in the LEs b/l, nonerythematous Neuro: Nonverbal, unresponsive to questioning; does not respond to commands; unable to assess sensation Principal Diagnosis influenza, pneumonia Discharge Exam Constitutional well developed and well nourished; no acute distress Eyes + anicteric sclerae; no conjunctival abnormality ENMT Ears: no external ear abnormality Nose: no external nose abnormality Moist mucous membranes Respiratory normal respiratory effort, lungs clear to auscultation Cardiovascular Rate/Rhythm: regular rate and regular rhythm No lower extremity edema Gastrointestinal (Abdomen) PEG tube in place, minimal erythema around tube Skin no rashes, warm and dry Psychiatric Awake, alert Discharge Data Allergies Allergy/AdvReac Type Severity Reaction Status Date / Time glycopyrrolate Allergy Severe TONGUE Verified 05/22/23 13:40 SWELLING trazodone Allergy Severe SWELLING Verified 05/22/23 13:40 OF TONGUE & EXTREMITIES, DIFFICULTY BREATHING. lithium Allergy Intermediate EXCESSIVE Verified 05/22/23 13:40 DRINKING, DECREASED APPETITE & VERBALIZATIONS risperidone Allergy Intermediate POSSIBLE Verified 05/22/23 13:40 NEUROLEPTIC MALIGNANCY SYNDROME amoxicillin [From Augmentin] Allergy Mild Rash Verified 05/22/23 13:40 clavulanic acid Allergy Mild Rash Verified 05/22/23 13:40 [From Augmentin] Macrolide Antibiotics Allergy Mild RASH Verified 05/22/23 13:40 belladonna alkaloids Allergy Unknown Unknown Verified 05/22/23 13:40 clarithromycin Allergy Unknown Unknown Verified 05/22/23 13:40 metoclopramide Allergy Unknown PT TAKES Verified 05/22/23 13:40 AT HOME aripiprazole AdvReac Intermediate HYPERACTIVITY Verified 05/22/23 13:40 & INSOMNIA Consultations 09/01/23 13:34 ED Decision to Admit Stat Ordered Studies 09/02/23 09:00 CT chest without contrast [CT chest diagnostic wo con] Stat Chest X-Ray 09/01/23 11:41 XR chest 1V portable CLINICAL HISTORY: Chest pain, nonspecific TECHNIQUE: Single frontal radiograph of the chest was obtained. Comparison: Comparison is made to chest radiograph 08/14/2023 FINDINGS: No lines and tubes are seen. Cardiomegaly is noted. Multifocal airspace opacities are slightly increased from prior exam. No evidence of pleural effusio n or pneumothorax. IMPRESSION: Slightly increased multifocal airspace opacities compatible with worsening pneumonia. ACT 112: Negative or not required by law. Electronically signed by: Dany George M.D. 09/01/2023 1:[address] 09/02/23 09:00 CT OF THE CHEST WITHOUT IV CONTRAST CLINICAL HISTORY: Respiratory distress. Pneumonia. COMPARISON STUDY: Chest radiographs August 14, 2023 and September 01, 2023. CT DOSE: 331.63 mGy.cm TECHNIQUE: Axial images of the chest were obtained without IV contrast. Images were reviewed in the axial, sagittal, and coronal planes. IV contrast was not administered for this examination. Automated exposure control was utilized for the study. A dose lowering technique was utilized adhering to the principles of ALARA. FINDINGS: Mildly enlarged mediastinal lymph nodes are present. Index right paratracheal node on image 102 of 225 measures 1.7 x 1 cm. There is mild cardiomegaly. No pericardial effusion is present. There is a small hiatal hernia. No pneumothorax. Small left and trace right pleural effusions are present. Associated bilateral lower lobe dependent airspace opacities are noted. In addition, there are moderate scattered alveolar opacities throughout the lungs. No central obstructing mass is noted. There are secretions within the right mainstem bronchus as well as segmental bronchi within the right lower lobe. Lungs are suboptimally assessed due to respiratory motion. No cavitation is present. No acute fractures within the bony thorax are present. Visualized portions of the upper abdomen are unremarkable. IMPRESSION: 1. Scattered alveolar opacities throughout the lungs suggestive of pneumonia or aspiration pneumonitis. Follow-up chest CT in 3 months to ensure resolution is recommended. 2. Small left and trace right pleural effusions. Associated bilateral lower lobe airspace opacities also favor pneumonia or aspiration pneumonitis. 3. Mildly enlarged mediastinal lymph nodes which are likely reactive. These can be assessed on follow-up CT. 4. Mild cardiomegaly. ACT 112: Negative or not required by law. Electronically signed by: Walter Benavidez M.D. 09/02/2023 9:59 AM Hospital Course (1) Influenza A: (2) Pneumonia: (3) Uses feeding tube: (4) Congestive heart failure: (5) Myelodysplasia (myelodysplastic syndrome): (6) Microcephaly: (7) Seizure disorder: (8) Gout: Plan Marty Simms is a 68 year-old male with a past medical history of CHF, myelodysplastic syndrome, chronic feeding tube use, microcephaly/intellectual disability/seizure disorder, esophageal dyskinesia, and gout who presented from [facility] with worsening dyspnea and subsequently tested positive for influenza A with chest X-ray and CT consistent with worsening pneumonia/aspiration pneumonitis. Influenza A | ?Bacterial PNA (likely MRSA): Resolved Recent [facility] admission from 08/07 - 08/16 for ARF and aspiration pneumonitis. Was discharged back to [facility]. Per report, on 08/29, [facility] suspected once again aspiration pneumonitis and started treatment with solumedrol IV, cefepime, and flagyl. With worsening symptoms, he presented to [facility] on 09/01 for admission. On admission, tested +influenza A; afebrile, no leukocytosis, neg procal, neg CRP. MRSA nares (08/07) positive. Flu A: Completed Tamiflu & Prednisone. PNA: Completed 5 day course of Doxycycline on 09/08. Stable oxygen saturation on room air at time of discharge CT Chest: scattered opacities suggestive of PNA or aspiration pneumonitis; small bilateral pleural effusions also present. * F/U chest CT in 3 months to ensure resolution is recommended. Hypernatremia: Resolved Likely hyperosmolar hyponatremia due to intravascular volume depletion as this occurred during previous hospitalization. Na level at 138 (09/22) on day of discharge. * Continue saline flushes at 250 mL TID in addition to 100 mL Pre/Post feeding flushes. * Recommend rechecking BMP in 1 week CHF, chronic Grade 1 diastolic, on admission BNP 140s. Fluid status monitored. Appears euvolemic. Feeding Tube Continue aspiration precautions. Consider goals of care discussion in future. At increased risk of aspiration at baseline. * Continue full nutrition through peg-tube (Nutren 2.0, 300mL bolus feeds TID), Continue saline flushes as above * Some skin irritation around PEG tube, continue Nystatin powder PRN Myelodysplasia (myelodysplastic syndrome), chronic Follows with hematology, Hgb stable ~mid 8. Macrocytic, checked B12 and folate levels which were both WNL Seizure disorder Continue clozapine through PEG tube Gout: Continue allopurinol through PEG tube Disposition Patient to be discharged to [facility] for short term rehab before going back to his skilled nursing. Per caregivers at bedside, patient is typically pretty mobile and does not spend most of the day in bed. Hoping that with continued rehab his mobility can return to baseline Total Time Total Time Spent Total Time Spent (In Minutes): . Discharge Plan Discharge Items Patient Disposition: Transfer Longterm Fac Reason For Visit: INFLUENZA, ASPIRATION PNEUMONITIS Discharge Diagnosis: Influenza, Aspiration penumonia Activity: Per Instructions section Non-emergency contact: Primary Care Provider Call non-emergency contact if: you have any medication questions Follow-up/Referrals: Sharon Montero CRNP [Primary Care Provider] - (Please schedule hospital discharge appointment within 1 week of discharge from SNF) Diet: Nothing by Mouth Diet Comment: Patient receives Nutren 2.0 300mL bolus three times daily via PEG tube Addtl Attending Provider Instructions: Marty Simms is a 68 year-old male with a past medical history of CHF, myelodysplastic syndrome, chronic feeding tube use, microcephaly/intellectual disability/seizure disorder, esophageal dyskinesia, and gout who presented from [facility] with worsening dyspnea and subsequently tested positive for influenza A with chest X-ray and CT consistent with worsening pneumonia/aspiration pneumonitis. Influenza A | ?Bacterial PNA (likely MRSA): Resolved -Recent [facility] admission from 08/07 - 08/16 for ARF and aspiration pneumonitis. Was discharged back to [facility]. Per report, on 08/29, [facility] suspected once again aspiration pneumonitis and started treatment with solumedrol IV, cefepime, and flagyl. With worsening symptoms, he presented to [facility] on 09/01 for admission. On admission, tested +influenza A; afebrile, no leukocytosis, neg procal, neg CRP -CT Chest: scattered opacities suggestive of PNA or aspiration pneumonitis; small bilateral pleural effusions also present. F/U chest CT in 3 months to ensure resolution is recommended. -MRSA nares (08/07) positive -Flu A: Completed Tamiflu & Prednisone -PNA: Completed 5 day course of Doxycycline on 09/08. Hypernatremia: Resolved - Likely hyperosmolar hyponatremia due to intravascular volume depletion as this occurred during previous hospitalization. - Na level at 135 (09/21), continue saline flushes at 250 mL TID in addition to 100 mL Pre/Post feeding flushes. - Recommend rechecking BMP in 1 week CHF, chronic - Grade 1 diastolic, on admission BNP 140s. Fluid status monitored. Appears euvolemic. Feeding Tube - Continue aspiration precautions - Continue full nutrition through peg-tube (Nutren 2.0, 300mL bolus feeds TID), Continue saline flushes as above - Consider goals of care discussion in future. At increased risk of aspiration at baseline. - Some skin irritation around PEG tube, continue Nystatin powder PRN Myelodysplasia (myelodysplastic syndrome), chronic - Follows with hematology, Hgb stable ~mid 8 - Macrocytic, checked B12 and folate levels which were both WNL Seizure disorder - Continue clozapine through PEG tube Gout: - Continue allopurinol through PEG tube Disposition - Patient to be discharged to [facility] for short term rehab before going back to his skilled nursing. - Per caregivers at bedside, patient is typically pretty mobile and does not spend most of the day in bed. - Hoping that with continued rehab his mobility can return to baseline Pending Studies at Discharge: No Stand-Alone Forms: My [facility] Skilled Items Patient informed of condition?: Yes DNR: Yes Discharge Level of Care: Acute rehab Communicable Disease: No Discharge Prognosis: Stable Lines: None Urinary Catheter: Yes (external/condom catheter) Medications and DC Order Prescriptions: New Tube Feeding Water Flush 100 ml PEG 0700,1200,1700 Qty: 0 0RF Tube Feeding Water Flush 250 ml PEG 0600,1500,2300 Qty: 0 0RF Tube Feeding Water Flush 100 ml PEG 0900,1400,1900 Qty: 0 0RF Nutren 2.0 0.08 gram-2 kcal/mL Liquid 1 ea PEG 0800,1300,1800 Qty: 6000 0RF Continued (DME) nebulizer accessories Kit See Rx Instructions .ROUTE .MEDSUPPLY Qty: 1 0RF Rx Instructions: NEBULIZER, FACE MASK, AND SUPPLIES DX: R05 (DME) diaper,brief,adult,disposable Misc See Dose Instructions .ROUTE .MEDSUPPLY Qty: 240 11RF Dose Instruction: As directed Rx Instructions: As directed adult LARGE 4-8 per day clozapine [Clozaril] 25 mg tablet 125 mg Feeding Tube HS Rx Instructions: crush and dissolve in 5 cc's of water, administer via g-tube. clozapine 50 mg tablet 50 mg Feeding Tube QAM Rx Instructions: crush and dissolve in 5 cc's of water, administer via g-tube (DME) Wings Choice Plus Adult Briefs Misc See Rx Instructions .Route Qty: 216 5RF Rx Instructions: change 4-6 times daily polyethylene glycol 3350 [Miralax] 17 gram/dose powder See Rx Instructions PO .COMPLEX Qty: 510 11RF Rx Instructions: one cap full mixed with 8 oz of water every other day; for constipation, administered via feeding tube. Hold for loose stools allopurinol 100 mg tablet See Rx Instructions feeding tube .COMPLEX Qty: 60 5RF Rx Instructions: 1 tablet twice daily via feeding tube for gout; (DME) ostomy supplies [Adapt Stoma Powder] Powder See Rx Instructions .ROUTE .MEDSUPPLY Qty: 28.3 0RF Rx Instructions: Apply topically 2x daily around peg tube (DME) sheep skin heel protectors See Rx Instructions .Route .MEDSUPPLY Qty: 1 5RF Rx Instructions: apply to each heel ipratropium bromide 21 mcg (0.03 %) spray,non-aerosol 2 spray intranasal TID PRN (Reason: postnasal drip) Qty: 30 11RF Rx Instructions: administer into each nostril fluticasone propionate 50 mcg/actuation spray,suspension 2 spray intranasal DAILY Qty: 16 11RF Rx Instructions: administer into each nostril alum-mag hydroxide-simeth [Antacid Liquid] 200-200-20 mg/5 mL Suspension 30 ml Feeding Tube BID PRN (Reason: upset stomach/vomiting) chlorhexidine gluconate [Peridex] 0.12 % Mouthwash 15 ml BUCCAL BID sennosides [Senokot] 8.6 mg Tablet 8.6 mg PO .DAILY @ LUNCH PRN (Reason: Constipation) loperamide 2 mg Capsule 2 mg feeding tube Q4H PRN (Reason: Loose Stool) Rx Instructions: administer after each loose stool until symptoms controlled; do not exceed 8 mg per 24 hrs zinc oxide 20 % Ointment 1 applic TOPICAL BID Rx Instructions: buttock guaifenesin 100 mg/5 mL Liquid 100 mg feeding tube TID bisacodyl 10 mg Suppository 10 mg [place] DAILY PRN (Reason: Constipation) nystatin [Nystop] 100,000 unit/gram powder 1 applic TOPICAL BID Rx Instructions: abdomen ondansetron 4 mg Tablet,Disintegrating 4 mg feeding tube Q4H PRN (Reason: n/v) dextrose 50 % in water (D50W) Syringe 25 ml IV DIRECTED dextrose 50 % in water (D50W) Syringe 50 ml IV DIRECTED PRN (Reason: Hypoglycemia) Saccharomyces boulardii 250 mg Capsule 250 mg feeding tube BID sodium chloride-aloe vera Swab 1 ea INTRANASAL BID Fleet Enema 133 ml KY DAILY PRN (Reason: Constipation) Insta-Glucose 15 g PO DIRECTED PRN (Reason: Hypoglycemia) dextromethorphan-guaifenesin 10 ml G-tube Q6H PRN (Reason: Cough) levalbuterol HCl 1.25 mg/3 mL solution for nebulization 1.25 mg INH Q4H Discontinued clozapine 100 mg tablet 100 mg feeding tube HS tramadol 50 mg Tablet 50 mg PO Q8H Maxipime 1 gram Piggyback 1 g IV .INFUSE OVER 0.5 HR Methylprednisolone Solution 0.64 ml IV Q8H Saline Flush 5 ml IV DAILY Saline Flush 1,000 ml IV DIRECTED Rx Instructions: 75ml/hr guaifenesin 15 ml G-tube QID metronidazole 50 ml IV Q8H Discharge Orders: Discharge Order (Routine); Ordered 09/22/23 Ordered By: Holley Goss Admission Data Admit Date/Time: 09/01/23 14:44 Attending Provider: Rebeca Yusuf Admit Provider: Frederic Zuluaga Primary Care Provider: Sharon Montero Other Providers: Bob Villanueva; [place]; Yovanny Ramirez; [facility]; [facility]; Jeronimo Hoover R; [place] Other Interventions: Discharge Summary Assessment (RN) Last Done: 09/22/23 14:50 Supervising Physician Co-Signing Physician Notes Attending Physician Supervision Note: I independently interviewed and examined the patient and verified the stark history and physical, reviewed labs and image studies and agree with findings and care plan noted above. Resident Activity Tracking Resident Involvement: Resident Care Provided Care Provided: Adult Hospital Medicine"
== END 2023-09-22 17:15 | DRG 871 ==
LOC: ED 11:27 → SUATTDRO 14:44 → 2S 14:44 → 3W 09-11 21:13

== ENCOUNTER 2024-01-11 19:13 | Inpatient (IN) ==
[2024-01-11 20:14] LABS: Basophils # (auto) 0.04 K/uL (0.00-0.20); Basophils % (auto) 0.7 %; Eosinophils # (auto) 0.14 K/uL (0.00-0.50); Eosinophils % (auto) 2.3 %; Hematocrit (blood only) 35.1 % (42.0-52.0); Hemoglobin 11.4 g/dl (14.0-18.0); Immature Granulocytes # (auto) 0.03 K/uL (0.01-0.20); Immature Granulocytes % (auto) 0.5 %; Lymphocytes # (auto) 1.39 K/uL (1.20-3.40); Lymphocytes % (auto) 23.2 %; Mean Corpuscular Hemoglobin 31.7 pg (25.0-34.0); Mean Corpuscular Hgb Conc 32.5 g/dL (32.0-36.0); Mean Corpuscular Volume 97.5 fL (80.0-100.0); Mean Platelet Volume 12.3 fL (9.4-12.4); Monocytes # (auto) 0.86 K/uL (0.11-0.59); Monocytes % (auto) 14.4 %; Neutrophils # (auto) 3.53 K/uL (1.40-6.50); Neutrophils % (auto) 58.9 %; Platelet Count 189 K/uL (130-400); RDW Coefficient of Variation 13.3 % (11.5-14.5); RDW Standard Deviation 47.8 fL (36.4-46.3); White Blood Count 5.99 K/ul (4.8-10.8)
[2024-01-11 20:23] LABS: Partial Thromboplastin Ratio 1.1; Partial Thromboplastin Time 29 Seconds (21-31)
[2024-01-11 20:31] LABS: Alanine Aminotransferase 19 U/L (7-52); Albumin Globulin Ratio 0.9 (0.9-2); Albumin Level 3.7 gm/dl (3.4-5.0); Alkaline Phosphatase 146 U/L (34-104); Anion Gap 7 (3-11); Aspartate Aminotransferase 17 U/L (13-39); BUN Creatinine Ratio 33.7 (10-20); Bilirubin,Total 0.3 mg/dl (0.2-1.0); Blood Urea Nitrogen 33 mg/dl (6-23); Carbon Dioxide 27 mmol/L (21-32); Chloride 105 mmol/L (98-107); Est GFR (African American) 91.4 ml/min; Est GFR (Non-African American) 78.9 ml/min; Globulin 4.2 gm/dl (2.5-4.0); Glucose 119 mg/dl (70-99(Fasting)); Magnesium 2.1 mg/dl (1.7-2.4); Potassium 3.7 mmol/L (3.5-5.1); Sodium 139 mmol/L (136-145); Total Protein 7.9 gm/dl (6.0-8.3)
[2024-01-11 20:38] LABS: Troponin I High Sensitivity 13.1 pg/ml (0-20)
[2024-01-11 21:10] LABS: Appearance Urine Clear (Clear); Bacteria Urine Automated None Seen (None Seen); Bilirubin Urine Negative (Negative); Blood Urine Negative (Negative); Color Urine Yellow; Epithelial Cell Urine Auto 0-2 /hpf (0-2); Glucose Urine UA Negative (Negative); Ketones Urine Negative (Negative); Leukocyte Esterase Urine 1+ (Negative); Nitrite Urine Negative (Negative); Protein Urine Negative (Negative); RBC Urine Automated 0-2 /hpf (0-2); Specific Gravity Urine 1.009 (1.000-1.030); Urobilinogen Urine Negative (Negative); WBC Urine Automated 0-5 /hpf (0-5); pH Urine 5.5 (4.5-7.5)
--- NOTE | 2024-01-11 21:51 | Emergency Department Note ---
Impression & Plan Infection due to extended spectrum beta lactamase (ESBL) producing Proteus mirabilis, Microcephaly, Intellectual disability, Complication of Hendrix catheter, Acute UTI ED Provider Note NAME: TARA MAN AGE: 68 SEX: M : 1955 ARRIVES VIA: Walk-In INFORMANT: Patient, ED PROVIDER(S): Prince Muñoz MD CHIEF COMPLAINT: Call back for abnormal urinalysis MEDICAL DECISION MAKING: Patient presents due to concern for urine culture results which were resistant and required IV antibiotics. Patient is accompanied by his skills housekeeper and laundry assistant. No reported vomiting or diarrhea. IV was established and blood work was obtained. The patient had been discharged on Omnicef medication. Patient's blood work showed a normal white count with hemoglobin 11.4 with normal platelet count. The patient's kidney function was unremarkable. Alk phos elevated at 146. Procalcitonin 0.35. Urinalysis does not appear to be grossly infected today from comparison. Patient was ordered Invanz and I did speak to the on-call hospitalist Dr. Bertrand and the patient was admitted to the medicine service. Discussion w/ other healthcare providers: Dr. Bertrand inpatient medicine service Prior /Outside records reviewed: I reviewed prior urine culture which showed Proteus Mirabella's ESBL was sensitive to ertapenem. This result was from January 07 Differential diagnosis: Infection, dehydration, metabolic abnormality, hypo/hyperglycemia, electrolyte imbalance, anemia, UTI, pneumonia, thyroid dysfunction among others were considered. Diagnostics, as interpreted by me: ECG:Normal sinus rhythm, rate of 87, normal intervals, left axis deviation no ST elevations. Cardiac monitoring: An order was placed for continuous cardiac monitoring. The monitor shows a rate of 80 with sinus rhythm. Patient was placed on pulse oximetry Medical decision rules: None Imaging studies: I informally interpreted the patient's no obvious pneumothorax with formal report to follow. HPI: Patient presents due to concern for abnormal urine culture results which required IV antibiotics. Patient is companied by his skilled home housekeeper and laundry assistant who does provide some of the history. Patient reportedly been here several days ago was placed on antibiotics for likely UTI but was called today due to concern for drug-resistant bacteria. No reported fevers or chills. No vomiting or diarrhea. PAST MEDICAL HISTORY: See Below PAST SURGICAL HISTORY: See Below SOCIAL HISTORY: See Below HOME MEDICATIONS: See Below ALLERGIES: See Below VITALS: See Below PHYSICAL EXAMINATION: GENERAL: NAD, non-toxic. Head: Microcephaly noted. EYE EXAM: Normal conjunctiva. PERRL, no anisocoria and EOM's grossly intact w/o pain. OROPHARYNX: Moist mucus membranes, grossly normal dentition. NECK: Trachea midline, no stridor. LUNGS: Clear to auscultation. Normal chest wall mechanics. HEART: NSR, no MRG. ABDOMEN: Abdomen soft, non-tender, no masses, no rebound or guarding. BACK: No CVA TTP. SKIN: No rashes and no bruising. : Hendrix catheter in place. UPPER EXTREMITIES: Upper extremities are grossly normal. LOWER EXTREMITIES: Grossly normal, no edema. NEURO EXAM: Awake and alert, moves all 4 extremities. Past Med/Surg History Medical History Hypernatremia Hypokalemia Aspiration pneumonitis Acute diastolic CHF (congestive heart failure) Chronic rhinitis Seizure disorder (03/27/12) Esophageal dyskinesia Intellectual disability Uses feeding tube Surgical History History of craniotomy History of colonoscopy History of hernia repair History of esophagogastroduodenoscopy (EGD) History of cholecystectomy Family History Sister Microcephaly Intellectual disability Myelodysplasia (myelodysplastic syndrome) Father Cancer Myocardial infarction Other Family history non-contributory Denies family history of Ovarian cancer Prostate cancer Breast cancer Colorectal cancer Social History Smoking Status: Never smoker Second Hand Exposure: No; Do You Dip or Chew Tobacco: No; Hx Alcohol Use: No Hx Substance Use: No Preferred Language: Zambian Communication Ability: Effective Visual Impairment: No Limitations Hearing Ability: Normal Corporate Account Executive Required: No Beliefs That Will Affect Care: None marital status: Single Current Living Situation: Personal Care Facility Current Living Situation Comment: fdc current occupational status: disabled Feels Safe at Home: Yes Childhood Exposure to Second-Hand Smoke: No Dental Care, Regularly: Yes Physical Activity Frequency: 1-2 Times per Week Seatbelt Use: always Sunscreen Use: No Assistive Devices: Nebulizer Allergies Allergies Allergy/AdvReac Type Severity Reaction Status Date / Time glycopyrrolate Allergy Severe TONGUE Verified 01/11/24 22:12 SWELLING trazodone Allergy Severe SWELLING Verified 01/11/24 22:12 OF TONGUE & EXTREMITIES, DIFFICULTY BREATHING. lithium Allergy Intermediate EXCESSIVE Verified 01/11/24 22:12 DRINKING, DECREASED APPETITE & VERBALIZATIONS risperidone Allergy Intermediate POSSIBLE Verified 01/11/24 22:12 NEUROLEPTIC MALIGNANCY SYNDROME amoxicillin [From Augmentin] Allergy Mild Rash Verified 01/11/24 22:12 clavulanic acid Allergy Mild Rash Verified 01/11/24 22:12 [From Augmentin] Macrolide Antibiotics Allergy Mild RASH Verified 01/11/24 22:12 belladonna alkaloids Allergy Unknown Unknown Verified 01/11/24 22:12 clarithromycin Allergy Unknown Unknown Verified 01/11/24 22:12 metoclopramide Allergy Unknown PT TAKES Verified 01/11/24 22:12 AT HOME aripiprazole AdvReac Intermediate HYPERACTIVITY Verified 01/11/24 22:12 & INSOMNIA Home Meds Home Medications Medication Instructions Recorded Confirmed clozapine 25 mg tablet (Clozaril) 25 mg feeding tube HS 10/27/22 01/11/24 clozapine 50 mg tablet 50 mg feeding tube QAM 10/27/22 01/11/24 ondansetron 4 mg disintegrating 4 mg feeding tube Q4H PRN n/v 09/01/23 01/11/24 tablet allopurinol 100 mg tablet 100 mg feeding tube BID 01/08/24 01/11/24 clozapine 100 mg tablet 100 mg feeding tube HS 01/08/24 01/11/24 fluocinonide-emollient 0.05 % 1 applic topical BID 01/08/24 01/11/24 topical cream food supplemt, lactose-reduced 1 ea feeding tube TID 01/08/24 01/11/24 menthol 0.44 %-zinc oxide 20.6 % 1 applic topical QID 01/08/24 01/11/24 topical ointment (Calmoseptine) Lactobacillus acidophilus 5,000 mmu cells feeding tube DAILY 01/11/24 01/11/24 (Acidophilus capsule) benzonatate 100 mg capsule 100 mg TID PRN cough 01/11/24 01/11/24 dextromethorphan-guaifenesin 10 10 ml feeding tube Q6H PRN 01/11/24 01/11/24 mg-100 mg/5 mL oral syrup COUGH/CONGESTION furosemide 10 mg/mL oral solution 10 mg feeding tube DIRECTED 01/11/24 01/11/24 ipratropium bromide 21 mcg (0.03 2 spray intranasal Q8H PRN 01/11/24 01/11/24 %) nasal spray postnasal drip lanolin alcohols-mineral 1 applic topical AMHS PRN DRY SKIN 01/11/24 01/11/24 oil-w.petrolatum-ceresin topical HANDS/FEET cream (Eucerin topical cream) levalbuterol HCl 1.25 mg/3 mL 1.25 mg inhalation TID PRN 01/11/24 01/11/24 solution for nebulization shortness of breath or wheezing or cough loperamide 1 mg/5 mL oral liquid 0 mg feeding tube DIRECTED PRN 01/11/24 01/11/24 Diarrhea loperamide 2 mg capsule 2 mg feeding tube Q4H PRN Loose 01/11/24 01/11/24 Stool izabrrys-rrynhmobyn-ukjkgkicj 1 applic topical BID PRN SMALL 01/11/24 01/11/24 topical packet CUTS/SCRAPS nystatin 100,000 unit/gram topical 1 applic topical DAILY PRN PEG 01/11/24 01/11/24 cream TUBE SITE NEEDED nystatin 100,000 unit/gram topical 1 applic topical BID PRN PEG TUBE 01/11/24 01/11/24 powder (Nystop) SITE NEEDED pediatric multivitamin 1 tab feeding tube DAILY 01/11/24 01/11/24 polyethylene glycol 3350 17 17 g feeding tube Q OTHER DAY 01/11/24 01/11/24 gram/dose oral powder (Miralax) constipation zinc oxide-cod liver oil 40 % 1 applic topical Q4H PRN 01/11/24 01/11/24 topical paste (Desitin) BUTTOCKS/GROIN AREA NEEDED Previous Rx's Medication Instructions Recorded ostomy supplies (Adapt Stoma #28.3 grams 11/12/19 Powder topical) nebulizer accessories #1 ea 07/30/20 sheep skin heel protectors #1 ea 11/11/21 diaper,brief,adult,disposable #240 ea 01/11/22 acetaminophen 160 mg/5 mL (5 mL) 640 mg (20 mL) feeding tube Q4 PRN 10/26/23 oral suspension fever/headache/minor aches herberth #500 mL aluminum-mag hydroxide-simethicone 30 ml feeding tube BID PRN upset 10/26/23 200 mg-200 mg-20 mg/5 mL oral susp stomach/vomiting #3,000 mL (Antacid Liquid) bisacodyl 10 mg rectal suppository 10 mg WA DAILY PRN Constipation 10/26/23 #12 ea cetirizine 10 mg disintegrating 10 mg feeding tube DAILY #90 tabs 10/26/23 tablet clotrimazole 1 % topical cream See Rx Instructions topical 10/26/23 .COMPLEX PRN Rash #45 grams cyanocobalamin (vitamin B-12) 1,000 mcg feeding tube DAILY #30 10/26/23 1,000 mcg tablet (Vitamin B-12) tabs docusate sodium 50 mg/5 mL oral 100 mg (10 mL) feeding tube DAILY 10/26/23 liquid #1,000 mL mupirocin 2 % topical ointment See Rx Instructions topical BID 11/06/23 PRN skin abrasions #22 grams chlorhexidine gluconate 0.12 % 15 ml buccal BID #473 mL 12/01/23 mouthwash (Peridex) Saccharomyces boulardii 250 mg 250 mg feeding tube BID #60 caps 12/04/23 capsule diaper,brief,adult,disposable #216 ea 12/06/23 (W[employer] Choice Plus Adult Briefs) compress.stocking,knee,reg,med #2 ea 12/18/23 fluticasone propionate 50 2 spray intranasal DAILY #16 grams 12/27/23 mcg/actuation nasal spray,suspension Results & Data (ED) Vital Signs Vital Signs - 24 hr 01/11/24 19:27 01/11/24 21:06 01/11/24 21:07 Temperature 36 C L Temperature Source Temporal Artery Scan Pulse Rate 84 Pulse Rate [Apical] 79 Pulse Rhythm Pulse Rhythm [Apical] Regular Pulse Strength [Apical] Normal Respiratory Rate 18 20 Respiratory Effort / Characteristics Non-Labored Non-Labored Spontaneous Respiratory Depth Normal Normal Respiratory Pattern Regular Blood Pressure 153/70 H Blood Pressure [Right Arm] 132/66 Blood Pressure Mean 97 Blood Pressure Mean [Right Arm] 88 Blood Pressure Position [Right Arm] Sitting Pulse Oximetry 96 96 96 Oxygen Delivery Method Room Air Room Air Room Air Sepsis Recent Fever Within 48 Hours No Sepsis New/Unexplained Change in Mental Status No Sepsis Action Taken by Nursing No Action Required 01/11/24 21:07 Temperature Temperature Source Pulse Rate 79 Pulse Rate [Apical] Pulse Rhythm Regular Pulse Rhythm [Apical] Pulse Strength [Apical] Respiratory Rate 20 Respiratory Effort / Characteristics Respiratory Depth Respiratory Pattern Blood Pressure Blood Pressure [Right Arm] Blood Pressure Mean Blood Pressure Mean [Right Arm] Blood Pressure Position [Right Arm] Pulse Oximetry 96 Oxygen Delivery Method Room Air Sepsis Recent Fever Within 48 Hours Sepsis New/Unexplained Change in Mental Status Sepsis Action Taken by Retirement Medications Current Medication List: was personally reviewed by me Laboratory Data Attestation: I reviewed the patient's lab results. 01/16/24 06:36 01/16/24 06:36 Lab Results 01/11/24 Range/Units 19:50 WBC 5.99 (4.8-10.8) K/ul RBC 3.60 L (4.70-6.10) M/uL Hgb 11.4 L (14.0-18.0) g/dl Hct 35.1 L (42.0-52.0) % MCV 97.5 (80.0-100.0) fL MCH 31.7 (25.0-34.0) pg MCHC 32.5 (32.0-36.0) g/dL RDW Std Deviation 47.8 H (36.4-46.3) fL RDW Coeff of Isaac 13.3 (11.5-14.5) % Plt Count 189 (130-400) K/uL MPV 12.3 (9.4-12.4) fL Immature Gran % (Auto) 0.5 % Neut % (Auto) 58.9 % Lymph % (Auto) 23.2 % Parker % (Auto) 14.4 % Eos % (Auto) 2.3 % Baso % (Auto) 0.7 % Neut # (Auto) 3.53 (1.40-6.50) K/uL Lymph # (Auto) 1.39 (1.20-3.40) K/uL Parker # (Auto) 0.86 H (0.11-0.59) K/uL Eos # (Auto) 0.14 (0.00-0.50) K/uL Baso # (Auto) 0.04 (0.00-0.20) K/uL Immature Gran # (Auto) 0.03 (0.01-0.20) K/uL PT 11.0 (9.0-12.0) Seconds INR 1.0 (0.9-1.1) APTT 29 (21-31) Seconds PTT Ratio 1.1 Sodium 139 (136-145) mmol/L Potassium 3.7 (3.5-5.1) mmol/L Chloride 105 (98-107) mmol/L Carbon Dioxide 27 (21-32) mmol/L Anion Gap 7 (3-11) BUN 33 H (6-23) mg/dl Creatinine 0.98 (0.6-1.4) mg/dl Est Cr Clr Drug Dosing Not Reportable Est GFR ( Amer) 91.4 ml/min Est GFR (Non-Af Amer) 78.9 ml/min BUN/Creatinine Ratio 33.7 H (10-20) Glucose 119 H (70-99(Fasting)) mg/dl Lactate 1.2 (0.4-2.0) mmol/L Calcium 10.0 (8.6-10.3) mg/dl Magnesium 2.1 (1.7-2.4) mg/dl Total Bilirubin 0.3 (0.2-1.0) mg/dl AST 17 (13-39) U/L ALT 19 (7-52) U/L Alkaline Phosphatase 146 H (34-104) U/L Troponin I High Sens 13.1 (0-20) pg/ml Total Protein 7.9 (6.0-8.3) gm/dl Albumin 3.7 (3.4-5.0) gm/dl Globulin 4.2 H (2.5-4.0) gm/dl Albumin/Globulin Ratio 0.9 (0.9-2) Procalcitonin 0.35 (0-0.5) ng/ml Administered Medications Allopurinol (Allopurinol 100 Mg Tab) 100 mg PEG BID JIE Stop: 02/11/24 08:59 Last Admin: 01/16/24 07:46 Dose: 100 mg Documented By: Admin: 01/15/24 19:58 Dose: 100 mg Documented By: Admin: 01/15/24 08:44 Dose: 100 mg Documented By: Admin: 01/14/24 20:50 Dose: 100 mg Documented By: Admin: 01/14/24 08:16 Dose: 100 mg Documented By: [facility] Admin: 01/13/24 19:54 Dose: 100 mg Documented By: Admin: 01/13/24 08:29 Dose: 100 mg Documented By: [facility] Admin: 01/12/24 21:46 Dose: 100 mg Documented By: Admin: 01/12/24 08:51 Dose: 100 mg Documented By: [facility] Calamine/Phenol (Menthol-Zinc Oxide 360 Appln/120 Gm Tube) 1 appln EXT QID JIE Stop: 02/11/24 08:59 Last Admin: 01/16/24 07:49 Dose: 1 appln Documented By: [facility] Admin: 01/15/24 20:00 Dose: 1 appln Documented By: [facility] Admin: 01/15/24 18:39 Dose: 1 appln Documented By: [facility] Admin: 01/15/24 13:51 Dose: 1 appln Documented By: [facility] Admin: 01/15/24 08:47 Dose: 1 appln Documented By: [facility] Admin: 01/14/24 20:57 Dose: 1 appln Documented By: [facility] Admin: 01/14/24 15:39 Dose: Not Given Documented By: [facility] Admin: 01/14/24 13:26 Dose: Not Given Documented By: [facility] Admin: 01/14/24 08:18 Dose: 1 appln Documented By: [facility] Admin: 01/13/24 20:01 Dose: 1 appln Documented By: [facility] Admin: 01/13/24 18:09 Dose: 1 appln Documented By: [facility] Admin: 01/13/24 15:31 Dose: Not Given Documented By: [facility] Admin: 01/13/24 08:30 Dose: 1 appln Documented By: [facility] Admin: 01/12/24 21:49 Dose: 1 appln Documented By: [facility] Admin: 01/12/24 19:41 Dose: Not Given Documented By: [facility] Admin: 01/12/24 13:02 Dose: Not Given Documented By: [facility] Admin: 01/12/24 08:53 Dose: 1 appln Documented By: [facility] Cetirizine HCl (Cetirizine Hcl 10 Mg Tablet) 10 mg PO DAILY JIE Stop: 02/11/24 08:59 Last Admin: 01/16/24 07:45 Dose: 10 mg Documented By: Admin: 01/15/24 08:44 Dose: 10 mg Documented By: Admin: 01/14/24 08:17 Dose: 10 mg Documented By: Admin: 01/13/24 08:29 Dose: 10 mg Documented By: Admin: 01/12/24 08:51 Dose: 10 mg Documented By: VICKY Chlorhexidine Gluconate (Chlorhexidine Gluconate 0.12% 480 Ml) 15 ml MT BID JEI Stop: 02/11/24 20:59 Last Admin: 01/16/24 07:45 Dose: 15 ml Documented By: Admin: 01/15/24 19:58 Dose: 15 ml Documented By: Admin: 01/15/24 08:45 Dose: 15 ml Documented By: Admin: 01/14/24 20:50 Dose: 15 ml Documented By: Admin: 01/14/24 08:17 Dose: 15 ml Documented By: Admin: 01/13/24 19:55 Dose: 15 ml Documented By: Admin: 01/13/24 08:30 Dose: 15 ml Documented By: Admin: 01/12/24 21:47 Dose: 15 ml Documented By: ALONZO Clozapine (Clozapine 25 Mg Tab) 50 mg PO [facility]; Protocol Stop: 02/11/24 08:59 Last Admin: 01/16/24 07:45 Dose: 50 mg Documented By: Admin: 01/15/24 08:44 Dose: 50 mg Documented By: Admin: 01/14/24 08:17 Dose: 50 mg Documented By: Admin: 01/13/24 08:29 Dose: 50 mg Documented By: Admin: 01/12/24 08:51 Dose: 50 mg Documented By: ORLIN Clozapine (Clozapine 100 Mg Tab) 100 mg PO [facility]; Protocol Stop: 02/11/24 20:59 Last Admin: 01/15/24 19:59 Dose: 100 mg Documented By: Admin: 01/14/24 20:51 Dose: 100 mg Documented By: Admin: 01/13/24 19:55 Dose: 100 mg Documented By: Admin: 01/12/24 21:48 Dose: 100 mg Documented By: ALONZO Clozapine (Clozapine 25 Mg Tab) 25 mg PO HS JIE; Protocol Stop: 02/11/24 20:59 Last Admin: 01/15/24 19:59 Dose: 25 mg Documented By: Admin: 01/14/24 20:51 Dose: 25 mg Documented By: Admin: 01/13/24 19:55 Dose: 25 mg Documented By: Admin: 01/12/24 21:47 Dose: 25 mg Documented By: ALONZO Cyanocobalamin (Cyanocobalamin (B-12) 500 Mcg Tablet) 1,000 mcg GT DAILY [facility] Stop: 02/11/24 08:59 Last Admin: 01/16/24 07:46 Dose: 1,000 mcg Documented By: Admin: 01/15/24 08:43 Dose: 1,000 mcg Documented By: Admin: 01/14/24 08:17 Dose: 1,000 mcg Documented By: Admin: 01/13/24 08:29 Dose: 1,000 mcg Documented By: Admin: 01/12/24 08:51 Dose: 1,000 mcg Documented By: ORLIN Docusate Sodium (Docusate Sodium Syrup 100 Mg/10 Ml Udc) 100 mg GT DAILY [facility] Stop: 02/11/24 08:59 Last Admin: 01/16/24 07:49 Dose: 100 mg Documented By: Admin: 01/15/24 08:45 Dose: 100 mg Documented By: Admin: 01/14/24 08:17 Dose: 100 mg Documented By: Admin: 01/13/24 10:18 Dose: 100 mg Documented By: Admin: 01/12/24 08:51 Dose: 100 mg Documented By: ORLIN Fluticasone Propionate (Fluticasone Propionate Na Spr 16 Gm Btl) 2 sprays EDD DAILY [facility] Stop: 02/11/24 08:59 Last Admin: 01/16/24 07:49 Dose: 2 sprays Documented By: Admin: 01/15/24 08:45 Dose: 2 sprays Documented By: Admin: 01/14/24 08:18 Dose: 2 sprays Documented By: Admin: 01/13/24 08:30 Dose: 2 sprays Documented By: Admin: 01/12/24 08:52 Dose: 2 sprays Documented By: [facility] Guaifenesin/Dextromethorphan (Guaifenesin/Dextrom Syrup 200mg/20mg 10ml Udc) 10 ml GT Q6H [facility] Stop: 02/11/24 13:44 Last Admin: 01/16/24 07:49 Dose: 10 ml Documented By: [facility] Admin: 01/16/24 02:36 Dose: 10 ml Documented By: Admin: 01/15/24 19:57 Dose: 10 ml Documented By: Admin: 01/15/24 13:51 Dose: 10 ml Documented By: [facility] Admin: 01/15/24 08:42 Dose: 10 ml Documented By: [facility] Admin: 01/15/24 02:30 Dose: 10 ml Documented By: Admin: 01/14/24 20:42 Dose: 10 ml Documented By: Admin: 01/14/24 13:24 Dose: 10 ml Documented By: [facility] Admin: 01/14/24 08:16 Dose: 10 ml Documented By: [facility] Admin: 01/14/24 01:01 Dose: 10 ml Documented By: Admin: 01/13/24 19:54 Dose: 10 ml Documented By: Admin: 01/13/24 13:04 Dose: 10 ml Documented By: [facility] Admin: 01/13/24 08:29 Dose: 10 ml Documented By: [facility] Admin: 01/13/24 01:59 Dose: 10 ml Documented By: Admin: 01/12/24 20:40 Dose: 10 ml Documented By: Admin: 01/12/24 13:50 Dose: 10 ml Documented By: [facility] Heparin Sodium (Porcine) (Heparin Sod 5,000 Unit/0.5 Ml Vial) 5,000 units SQ Q12 [facility] Stop: 02/11/24 08:59 Last Admin: 01/16/24 07:44 Dose: 5,000 units Documented By: Admin: 01/15/24 20:00 Dose: 5,000 units Documented By: Admin: 01/15/24 08:46 Dose: 5,000 units Documented By: [facility] Admin: 01/14/24 20:52 Dose: 5,000 units Documented By: Admin: 01/14/24 08:18 Dose: 5,000 units Documented By: [facility] Admin: 01/13/24 19:56 Dose: 5,000 units Documented By: Admin: 01/13/24 08:29 Dose: 5,000 units Documented By: Admin: 01/12/24 21:48 Dose: 5,000 units Documented By: Admin: 01/12/24 08:52 Dose: 5,000 units Documented By: ORLIN Ertapenem 1,000 mg/ Syringe 10 mls @ 2 mls/min IV Q24H JIE Stop: 01/22/24 18:59 Last Admin: 01/15/24 15:11 Dose: 2 mls/min Documented By: Admin: 01/14/24 15:36 Dose: 2 mls/min Documented By: Admin: 01/13/24 17:51 Dose: 2 mls/min Documented By: Admin: 01/12/24 19:00 Dose: 2 mls/min Documented By: ALONZO Lactobacillus Acidophilus (Lactobacillus Acidophilus 1 Gm Pack) 1 gm GT DAILY JIE Stop: 02/11/24 08:59 Last Admin: 01/16/24 07:49 Dose: 1 gm Documented By: Admin: 01/15/24 08:46 Dose: 1 gm Documented By: Admin: 01/14/24 08:17 Dose: 1 gm Documented By: Admin: 01/13/24 08:29 Dose: 1 gm Documented By: Admin: 01/12/24 08:52 Dose: 1 gm Documented By: ORLIN Levalbuterol HCl (Levalbuterol 1.25 Mg/3 Ml Neb) 1.25 mg INH TID PRN PRN Reason: shortness of breath or wheezing or cough Stop: 02/10/24 22:41 Last Admin: 01/16/24 08:14 Dose: 1.25 mg Documented By: Admin: 01/14/24 22:56 Dose: 1.25 mg Documented By: Admin: 01/13/24 00:17 Dose: 1.25 mg Documented By: RAINA Multivitamins/Folic Acid/Vitamin C (Multivitamin Chewable Tab) 1 tab PO DAILY JIE Stop: 02/11/24 08:59 Last Admin: 01/16/24 07:48 Dose: 1 tab Documented By: Admin: 01/15/24 08:43 Dose: 1 tab Documented By: Admin: 01/14/24 08:17 Dose: 1 tab Documented By: Admin: 01/13/24 08:29 Dose: 1 tab Documented By: Admin: 01/12/24 08:51 Dose: 1 tab Documented By: ORLIN Nutritional Formula (Nutren Liqd 2.0 1,000 Ml Bag) 1,000 ml PEG .See Protocol JIE; Protocol Stop: 02/11/24 10:44 Last Admin: 01/15/24 18:40 Dose: 1,000 ml Documented By: Admin: 01/15/24 13:50 Dose: 1,000 ml Documented By: Admin: 01/15/24 09:00 Dose: 1,000 ml Documented By: Admin: 01/14/24 13:48 Dose: 1,000 ml Documented By: Admin: 01/13/24 13:05 Dose: 1,000 ml Documented By: Admin: 01/12/24 12:55 Dose: 1,000 ml Documented By: VICKY Polyethylene Glycol (Polyethylene (Miralax) 17 Gm Pack) 17 gm PEG Q48H [facility] Stop: 02/11/24 08:59 Last Admin: 01/16/24 07:44 Dose: 17 gm Documented By: Admin: 01/14/24 08:21 Dose: 17 gm Documented By: Admin: 01/12/24 08:51 Dose: 17 gm Documented By: ORLIN Saccharomyces Boulardii (Saccharomyces Boulardii 250 Mg Cap) 250 mg PO BID [facility] Stop: 02/11/24 08:59 Last Admin: 01/16/24 07:48 Dose: 250 mg Documented By: Admin: 01/15/24 19:59 Dose: 250 mg Documented By: Admin: 01/15/24 08:43 Dose: 250 mg Documented By: Admin: 01/14/24 20:52 Dose: 250 mg Documented By: Admin: 01/14/24 08:16 Dose: 250 mg Documented By: Admin: 01/13/24 19:56 Dose: 250 mg Documented By: Admin: 01/13/24 08:29 Dose: 250 mg Documented By: Admin: 01/12/24 21:51 Dose: 250 mg Documented By: Admin: 01/12/24 08:52 Dose: 250 mg Documented By: [facility] Sterile Water (Tube Feeding Water Flush) 200 ml PEG Q4H JIE Stop: 02/11/24 10:44 Last Admin: 01/16/24 06:18 Dose: 200 ml Documented By: Admin: 01/16/24 02:36 Dose: 200 ml Documented By: Admin: 01/15/24 23:21 Dose: 200 ml Documented By: Admin: 01/15/24 19:45 Dose: 200 ml Documented By: Admin: 01/15/24 15:07 Dose: 200 ml Documented By: Admin: 01/15/24 10:36 Dose: 200 ml Documented By: Admin: 01/15/24 06:40 Dose: 200 ml Documented By: Admin: 01/15/24 02:30 Dose: 200 ml Documented By: Admin: 01/14/24 23:20 Dose: 200 ml Documented By: Admin: 01/14/24 19:15 Dose: 200 ml Documented By: Admin: 01/14/24 13:49 Dose: 200 ml Documented By: Admin: 01/14/24 11:02 Dose: 200 ml Documented By: Admin: 01/14/24 06:26 Dose: 200 ml Documented By: Admin: 01/14/24 03:15 Dose: 200 ml Documented By: Admin: 01/13/24 23:25 Dose: 200 ml Documented By: Admin: 01/13/24 19:42 Dose: 200 ml Documented By: Admin: 01/13/24 15:31 Dose: 200 ml Documented By: Admin: 01/13/24 10:18 Dose: 200 ml Documented By: Admin: 01/13/24 06:28 Dose: 200 ml Documented By: Admin: 01/13/24 02:47 Dose: 200 ml Documented By: Admin: 01/12/24 22:05 Dose: 200 ml Documented By: Admin: 01/12/24 18:45 Dose: 200 ml Documented By: Admin: 01/12/24 14:30 Dose: 200 ml Documented By: [facility] Admin: 01/12/24 11:20 Dose: Not Given Documented By: DM Discontinued Medications Furosemide (Furosemide 20 Mg Tab) 10 mg PO ONE ONE Stop: 01/14/24 09:46 Last Admin: 01/14/24 13:24 Dose: 10 mg Documented By: ORLIN Furosemide (Furosemide 20 Mg Tab) 10 mg PO ONE ONE Stop: 01/15/24 13:43 Last Admin: 01/15/24 15:06 Dose: 10 mg Documented By: [facility] Ertapenem (Invanz) 10 mls @ 2 mls/min IV NOW STA Stop: 01/11/24 21:58 Last Admin: 01/11/24 22:25 Dose: 2 mls/min Documented By: ROGER Imaging Data Radiologist's Impression: Chest X-Ray 01/11/24 19:32 XR chest 1V not portable HISTORY: 68 years-old Male Sepsis acute sepsis COMPARISON: Chest CT 11/22/2023 TECHNIQUE: PA view the chest FINDINGS: Cardiomediastinal and hilar silhouettes are within normal limits. Mild linear areas of consolidation within the lung bases redemonstrated with chronic interstitial coarsening. No pneumothorax, large pleural effusion or lobar airspace consolidation. Degenerative changes of the shoulders and spine. IMPRESSION: 1. Cardiomegaly without acute process. 2. Chronic interstitial coarsening with areas of bibasilar atelectasis versus scarring. ACT 112: Negative or not required by law. The above report was generated using voice recognition software. It may contain grammatical, syntax or spelling errors. Electronically signed by: Devin Mena M.D. 01/12/2024 7:22 AM Discharge Plan Visit Data Chief Complaint: Urinary Symptoms Stated Complaint: INFECTION ED Provider: Prince Muñoz Discharge Problem: Infection due to extended spectrum beta lactamase (ESBL) producing Proteus mirabilis, Microcephaly, Intellectual disability, Complication of Hendrix catheter, Acute UTI Patient Disposition: Admitted As Inpatient Discharge Instructions Interventions: ED Discharge Assessment Last Done: 01/11/24 23:05 Discharge Problem: Complication of Hendrix catheter Qualifiers: Encounter type: initial encounter Qualified Code(s): T83.9XXA - Unspecified complication of genitourinary prosthetic device, implant and graft, initial encounter
[2024-01-11] MEDS: ERTAPENEM SODIUM 10 ML IV STA (22:25)
[2024-01-11] MEDS ORDERED: ACETAMINOPHEN SUSP 160 MG/5 ML UDC PEG PRN (22:42)
[2024-01-11] MEDS ORDERED: CLOTRIMAZOLE 1% CR 30 GM TUBE TOP PRN (22:42)
[2024-01-11] MEDS ORDERED: NON-FORMULARY MEDICATION (Zinc Oxide-Cod Liver Oil [Desitin] 40 % Paste) TOP PRN (22:42)
[2024-01-11] MEDS ORDERED: ONDANSETRON 4 MG OD TAB PEG PRN (22:42)
[2024-01-11] MEDS ORDERED: OSTOMY SUPPLIES SCH (22:45)
[2024-01-11] MEDS ORDERED: NYSTATIN CR 15 GM TUBE EXT PRN (22:48)
[2024-01-11] MEDS ORDERED: ALUMINUM/MAGNESIUM SUSP 30 ML UDC PEG PRN (23:18)
--- NOTE | 2024-01-11 23:33 | History & Physical Report ---
Date of Service January 11, 2024 Assessment & Plan (1) Infection due to extended spectrum beta lactamase (ESBL) producing Proteus mirabilis: (2) Acute UTI: (3) Complication of Hendrix catheter: (4) Myelodysplasia (myelodysplastic syndrome): (5) Manic-depressive disorder: (6) Intellectual disability: (7) Seizure disorder: Plan ESBL Proteus UTI/chronic Hendrix catheter- From cultures growing on 01/08/2024 Patient had been discharged on Omnicef from the ED that evening Patient has been called back in due to growing the above resistance bacteria Present urinalysis looks significantly improved with improved hydration since visit in the ED Follow urine culture and sensitivity from this evening Continue Invanz 1 g IV every 24 hours begun in the ED Esophageal dyskinesia/GERD- Patient receives nutrition and medications through PEG tube Seizure disorder/intellectual disability/manic depressive disorder- Continue meds through the PEG tube: History of Present Illness Chief Complaint: The patient is a 68-year-old male, nonverbal, with a chronic indwelling Hendrxi catheter and PEG tube for nutrition, who is initially brought to the emergency department on 01/07 due to Hendrix catheter not working. Urinalysis at that time looked to be positive, and he was placed on Omnicef and sent back to the facility. Since that time, urine culture has grown ESBL Proteus, and caretakers were called to bring patient back into the emergency department for IV treatment. Primary Care Provider: YOON Vaughn The patient is a 68-year-old nonverbal male, with history of urinary retention and Hendrix catheter, CHF, myelodysplastic syndrome, microcephaly, intellectual disability, manic depressive disorder and seizure disorder. He is brought to the emergency department as noted above. His HPI and review of systems are otherwise limited as he is not able to participate due to his intellectual disability Allergies Allergy/AdvReac Type Severity Reaction Status Date / Time glycopyrrolate Allergy Severe TONGUE Verified 01/11/24 22:12 SWELLING trazodone Allergy Severe SWELLING Verified 01/11/24 22:12 OF TONGUE & EXTREMITIES, DIFFICULTY BREATHING. lithium Allergy Intermediate EXCESSIVE Verified 01/11/24 22:12 DRINKING, DECREASED APPETITE & VERBALIZATIONS risperidone Allergy Intermediate POSSIBLE Verified 01/11/24 22:12 NEUROLEPTIC MALIGNANCY SYNDROME amoxicillin [From Augmentin] Allergy Mild Rash Verified 01/11/24 22:12 clavulanic acid Allergy Mild Rash Verified 01/11/24 22:12 [From Augmentin] Macrolide Antibiotics Allergy Mild RASH Verified 01/11/24 22:12 belladonna alkaloids Allergy Unknown Unknown Verified 01/11/24 22:12 clarithromycin Allergy Unknown Unknown Verified 01/11/24 22:12 metoclopramide Allergy Unknown PT TAKES Verified 01/11/24 22:12 AT HOME aripiprazole AdvReac Intermediate HYPERACTIVITY Verified 01/11/24 22:12 & INSOMNIA Home Medications Medication Instructions Recorded Confirmed Type ostomy supplies (Adapt Stoma #28.3 grams 11/12/19 01/11/24 Rx Powder topical) nebulizer accessories #1 ea 07/30/20 01/11/24 Rx sheep skin heel protectors #1 ea 11/11/21 01/11/24 Rx diaper,brief,adult,disposable #240 ea 01/11/22 01/11/24 Rx clozapine 25 mg tablet (Clozaril) 25 mg feeding tube HS 10/27/22 01/11/24 History clozapine 50 mg tablet 50 mg feeding tube QAM 10/27/22 01/11/24 History ondansetron 4 mg disintegrating 4 mg feeding tube Q4H PRN n/v 09/01/23 01/11/24 History tablet acetaminophen 160 mg/5 mL (5 mL) 640 mg (20 mL) feeding tube Q4 PRN 10/26/23 01/11/24 Rx oral suspension fever/headache/minor aches herberth #500 mL aluminum-mag hydroxide-simethicone 30 ml feeding tube BID PRN upset 10/26/23 01/11/24 Rx 200 mg-200 mg-20 mg/5 mL oral susp stomach/vomiting #3,000 mL (Antacid Liquid) bisacodyl 10 mg rectal suppository 10 mg [place] DAILY PRN Constipation 10/26/23 01/11/24 Rx #12 ea cetirizine 10 mg disintegrating 10 mg feeding tube DAILY #90 tabs 10/26/23 01/11/24 Rx tablet clotrimazole 1 % topical cream See Rx Instructions topical 10/26/23 01/11/24 Rx .COMPLEX PRN Rash #45 grams cyanocobalamin (vitamin B-12) 1,000 mcg feeding tube DAILY #30 10/26/23 01/11/24 Rx 1,000 mcg tablet (Vitamin B-12) tabs docusate sodium 50 mg/5 mL oral 100 mg (10 mL) feeding tube DAILY 10/26/2311/04 Rx liquid #1,000 mL mupirocin 2 % topical ointment See Rx Instructions topical BID 11/06/23 01/11/24 Rx PRN skin abrasions #22 grams chlorhexidine gluconate 0.12 % 15 ml buccal BID #473 mL 12/01/23 01/11/24 Rx mouthwash (Peridex) Saccharomyces boulardii 250 mg 250 mg feeding tube BID #60 caps 12/04/23 01/11/24 Rx capsule diaper,brief,adult,disposable #216 ea 12/06/23 01/11/24 Rx (Wings Choice Plus Adult Briefs) compress.stocking,knee,reg,med #2 ea 12/18/23 01/11/24 Rx fluticasone propionate 50 2 spray intranasal DAILY #16 grams 12/27/23 01/11/24 Rx mcg/actuation nasal spray,suspension allopurinol 100 mg tablet 100 mg feeding tube BID 01/08/24 01/11/24 History clozapine 100 mg tablet 100 mg feeding tube HS 01/08/24 01/11/24 History fluocinonide-emollient 0.05 % 1 applic topical BID 01/08/24 01/11/24 History topical cream food supplemt, lactose-reduced 1 ea feeding tube TID 01/08/24 01/11/24 History menthol 0.44 %-zinc oxide 20.6 % 1 applic topical QID 01/08/24 01/11/24 History topical ointment (Calmoseptine) Lactobacillus acidophilus 5,000 mmu cells feeding tube DAILY 01/11/24 01/11/24 History (Acidophilus capsule) benzonatate 100 mg capsule 100 mg TID PRN cough 01/11/24 01/11/24 History dextromethorphan-guaifenesin 10 10 ml feeding tube Q6H PRN 01/11/24 01/11/24 History mg-100 mg/5 mL oral syrup COUGH/CONGESTION furosemide 10 mg/mL oral solution 10 mg feeding tube DIRECTED 01/11/24 01/11/24 History ipratropium bromide 21 mcg (0.03 2 spray intranasal Q8H PRN 01/11/24 01/11/24 History %) nasal spray postnasal drip lanolin alcohols-mineral 1 applic topical AMHS PRN DRY SKIN 01/11/24 01/11/24 History oil-w.petrolatum-ceresin topical HANDS/FEET cream (Eucerin topical cream) levalbuterol HCl 1.25 mg/3 mL 1.25 mg inhalation TID PRN 01/11/24 01/11/24 History solution for nebulization shortness of breath or wheezing or cough loperamide 1 mg/5 mL oral liquid 0 mg feeding tube DIRECTED PRN 01/11/24 01/11/24 History Diarrhea loperamide 2 mg capsule 2 mg feeding tube Q4H PRN Loose 01/11/24 01/11/24 History Stool isgxzrmj-jpgsystabn-fzzfvdoxu 1 applic topical BID PRN SMALL 01/11/24 01/11/24 History topical packet CUTS/SCRAPS nystatin 100,000 unit/gram topical 1 applic topical DAILY PRN PEG 01/11/24 01/11/24 History cream TUBE SITE NEEDED nystatin 100,000 unit/gram topical 1 applic topical BID PRN PEG TUBE 01/11/24 01/11/24 History powder (Nystop) SITE NEEDED pediatric multivitamin 1 tab feeding tube DAILY 01/11/24 01/11/24 History polyethylene glycol 3350 17 17 g feeding tube Q OTHER DAY 01/11/24 01/11/24 History gram/dose oral powder (Miralax) constipation zinc oxide-cod liver oil 40 % 1 applic topical Q4H PRN 01/11/24 01/11/24 History topical paste (Desitin) BUTTOCKS/GROIN AREA NEEDED Past Med/Surg History Medical History Hypernatremia Hypokalemia Aspiration pneumonitis Acute diastolic CHF (congestive heart failure) Chronic rhinitis Seizure disorder (03/27/12) Esophageal dyskinesia Intellectual disability Uses feeding tube Surgical History History of craniotomy History of colonoscopy History of hernia repair History of esophagogastroduodenoscopy (EGD) History of cholecystectomy Family History Sister Microcephaly Intellectual disability Myelodysplasia (myelodysplastic syndrome) Father Cancer Myocardial infarction Other Family history non-contributory Denies family history of Ovarian cancer Prostate cancer Breast cancer Colorectal cancer Social History Smoking Status: Never smoker Second Hand Exposure: No; Do You Dip or Chew Tobacco: No; Hx Alcohol Use: No Hx Substance Use: No Preferred Language: Nauruan Communication Ability: Impaired Visual Impairment: No Limitations Hearing Ability: Normal Breast Trimmer Required: No Beliefs That Will Affect Care: None marital status: Single Current Living Situation: Boarding Home Current Living Situation Comment: Lives at home with caregivers current occupational status: disabled Feels Safe at Home: Yes Childhood Exposure to Second-Hand Smoke: No Dental Care, Regularly: Yes Physical Activity Frequency: 1-2 Times per Week Seatbelt Use: always Sunscreen Use: No Assistive Devices: Other Review of Systems Review of Systems: HPI and ROS are limited due to patient's intellectual disability and nonverbal state Physical Exam Physical Exam: The patient is awake, nonresponsive, sitting upright in bed and in no acute distress. HEENT--PERRL, EOMI, mucous membranes and oropharynx normal Neck--supple. No JVD. No bruits. Thyroid normal, trachea midline, no adenopathy. Heart--normal S1 and S2. No murmurs, rubs or gallops. Lungs--clear bilaterally, no respiratory distress, no accessory muscle use. Abdomen--normal bowel sounds and soft. Nontender. Nondistended. PEG tube in place Extremities--no cyanosis or clubbing. No edema. Dermatologic--normal skin turgor, normal color, no abnormal lymph nodes, no rash. Neurologic-- limited exam Rheumatologic-Limited exam Psychiatric--at baseline per staff Results & Data Results & Data Vital Signs (Past 12 Hours) Vital Signs Temp Pulse Pulse Resp BP BP Pulse Ox 01/11/24 22:00 80 22 139/86 96 01/11/24 21:31 79 22 96 01/11/24 21:07 79 20 96 01/11/24 21:07 96 01/11/24 21:06 79 20 132/66 96 01/11/24 21:03 79 19 96 01/11/24 19:27 36 C L 84 18 153/70 H 96 O2 Del Method 01/11/24 22:00 Room Air 01/11/24 21:31 01/11/24 21:07 Room Air 01/11/24 21:07 Room Air 01/11/24 21:06 Room Air 01/11/24 21:03 01/11/24 19:27 Room Air Laboratory Results Laboratory Results WBC 5.99 K/ul (4.8-10.8) 01/11/24 19:50 RBC 3.60 M/uL (4.70-6.10) L 01/11/24 19:50 Hgb 11.4 g/dl (14.0-18.0) L 01/11/24 19:50 Hct 35.1 % (42.0-52.0) L 01/11/24 19:50 MCV 97.5 fL (80.0-100.0) 01/11/24 19:50 MCH 31.7 pg (25.0-34.0) 01/11/24 19:50 MCHC 32.5 g/dL (32.0-36.0) 01/11/24 19:50 RDW Std Deviation 47.8 fL (36.4-46.3) H 01/11/24 19:50 RDW Coeff of Isaac 13.3 % (11.5-14.5) 01/11/24 19:50 Plt Count 189 K/uL (130-400) 01/11/24 19:50 MPV 12.3 fL (9.4-12.4) 01/11/24 19:50 Immature Gran % (Auto) 0.5 % 01/11/24 19:50 Neut % (Auto) 58.9 % 01/11/24 19:50 Lymph % (Auto) 23.2 % 01/11/24 19:50 [place]zel % (Auto) 14.4 % 01/11/24 19:50 Eos % (Auto) 2.3 % 01/11/24 19:50 Baso % (Auto) 0.7 % 01/11/24 19:50 Neut # (Auto) 3.53 K/uL (1.40-6.50) 01/11/24 19:50 Lymph # (Auto) 1.39 K/uL (1.20-3.40) 01/11/24 19:50 Wetzel # (Auto) 0.86 K/uL (0.11-0.59) H 01/11/24 19:50 Eos # (Auto) 0.14 K/uL (0.00-0.50) 01/11/24 19:50 Baso # (Auto) 0.04 K/uL (0.00-0.20) 01/11/24 19:50 Immature Gran # (Auto) 0.03 K/uL (0.01-0.20) 01/11/24 19:50 PT 11.0 Seconds (9.0-12.0) 01/11/24 19:50 INR 1.0 (0.9-1.1) 01/11/24 19:50 APTT 29 Seconds (21-31) 01/11/24 19:50 PTT Ratio 1.1 01/11/24 19:50 Sodium 139 mmol/L (136-145) 01/11/24 19:50 Potassium 3.7 mmol/L (3.5-5.1) 01/11/24 19:50 Chloride 105 mmol/L (98-107) 01/11/24 19:50 Carbon Dioxide 27 mmol/L (21-32) 01/11/24 19:50 Anion Gap 7 (3-11) 01/11/24 19:50 BUN 33 mg/dl (6-23) H 01/11/24 19:50 Creatinine 0.98 mg/dl (0.6-1.4) 01/11/24 19:50 Est Cr Clr Drug Dosing Not Reportable 01/11/24 19:50 Est GFR ( Amer) 91.4 ml/min 01/11/24 19:50 Est GFR (Non-Af Amer) 78.9 ml/min 01/11/24 19:50 BUN/Creatinine Ratio 33.7 (10-20) H 01/11/24 19:50 Glucose 119 mg/dl (70-99(Fasting)) H 01/11/24 19:50 Lactate 1.2 mmol/L (0.4-2.0) 01/11/24 19:50 Calcium 10.0 mg/dl (8.6-10.3) 01/11/24 19:50 Magnesium 2.1 mg/dl (1.7-2.4) 01/11/24 19:50 Total Bilirubin 0.3 mg/dl (0.2-1.0) 01/11/24 19:50 AST 17 U/L (13-39) 01/11/24 19:50 ALT 19 U/L (7-52) 01/11/24 19:50 Alkaline Phosphatase 146 U/L (34-104) H 01/11/24 19:50 Troponin I High Sens 13.1 pg/ml (0-20) 01/11/24 19:50 Total Protein 7.9 gm/dl (6.0-8.3) 01/11/24 19:50 Albumin 3.7 gm/dl (3.4-5.0) 01/11/24 19:50 Globulin 4.2 gm/dl (2.5-4.0) H 01/11/24 19:50 Albumin/Globulin Ratio 0.9 (0.9-2) 01/11/24 19:50 Procalcitonin 0.35 ng/ml (0-0.5) 01/11/24 19:50 Urine Color Yellow 01/11/24 Unknown Urine Appearance Clear (Clear) 01/11/24 Unknown Urine pH 5.5 (4.5-7.5) 01/11/24 Unknown Ur Specific [place] 1.009 (1.000-1.030) 01/11/24 Unknown Urine Protein Negative (Negative) 01/11/24 Unknown Urine Glucose (UA) Negative (Negative) 01/11/24 Unknown Urine Ketones Negative (Negative) 01/11/24 Unknown Urine Blood Negative (Negative) 01/11/24 Unknown Urine Nitrite Negative (Negative) 01/11/24 Unknown Urine Bilirubin Negative (Negative) 01/11/24 Unknown Urine Urobilinogen Negative (Negative) 01/11/24 Unknown Ur Leukocyte Esterase 1+ (Negative) H 01/11/24 Unknown Urine WBC (Auto) 0-5 /hpf (0-5) 01/11/24 Unknown Urine RBC (Auto) 0-2 /hpf (0-2) 01/11/24 Unknown U Hyaline Cast (Auto) 3-5 /lpf (0-2) H 01/11/24 Unknown U Epithel Cells (Auto) 0-2 /hpf (0-2) 01/11/24 Unknown Urine Bacteria (Auto) None Seen (None Seen) 01/11/24 Unknown Code Status & VTE Plan Code Status DNR/DNI VTE Prophylaxis Plan VTE Prophylaxis will be ordered: Yes PG Care Time/CCT Total # of Minutes Spent Total Time Spent with Patient: Total time spent is greater than 50% in coordination of care (as documented) at patient's floor/unit and/or counseling patient: Coding Level of Care Code 11984 INT INP/OBS CARE 3/75MIN Diagnoses Infection due to extended spectrum beta lactamase (ESBL) producing Proteus mirabilis A49.8; Z16.12 Acute UTI N39.0 Complication of Hendrix catheter T83.9XXA Encounter type: initial encounter Myelodysplasia (myelodysplastic syndrome) D46.9 Manic-depressive disorder F31.9 Intellectual disability F79 Seizure disorder G40.909 (3) Complication of Hendrix catheter Encounter type: initial encounter Qualified Code(s): T83.9XXA - Unspecified complication of genitourinary prosthetic device, implant and graft, initial encounter
[2024-01-12 06:21] LABS: Basophils # (auto) 0.05 K/uL (0.00-0.20); Eosinophils # (auto) 0.14 K/uL (0.00-0.50); Eosinophils % (auto) 2.8 %; Hematocrit (blood only) 31.5 % (42.0-52.0); Hemoglobin 10.2 g/dl (14.0-18.0); Immature Granulocytes # (auto) 0.04 K/uL (0.01-0.20); Immature Granulocytes % (auto) 0.8 %; Lymphocytes # (auto) 1.46 K/uL (1.20-3.40); Lymphocytes % (auto) 28.8 %; Mean Corpuscular Hemoglobin 31.1 pg (25.0-34.0); Mean Corpuscular Hgb Conc 32.4 g/dL (32.0-36.0); Monocytes # (auto) 0.73 K/uL (0.11-0.59); Monocytes % (auto) 14.4 %; Neutrophils # (auto) 2.65 K/uL (1.40-6.50); Neutrophils % (auto) 52.2 %; Platelet Count 191 K/uL (130-400); RDW Coefficient of Variation 13.2 % (11.5-14.5); RDW Standard Deviation 46.9 fL (36.4-46.3); Red Blood Count 3.28 M/uL (4.70-6.10); White Blood Count 5.07 K/ul (4.8-10.8)
[2024-01-12 06:42] LABS: Albumin Level 3.3 gm/dl (3.4-5.0); BUN Creatinine Ratio 29.5 (10-20); Bilirubin,Total 0.3 mg/dl (0.2-1.0); Calcium 9.4 mg/dl (8.6-10.3); Creatinine Clr Calc Pharmacy 64.7 ml/min; Est GFR (African American) 102.3 ml/min; Est GFR (Non-African American) 88.3 ml/min; Globulin 3.3 gm/dl (2.5-4.0); Magnesium 2.1 mg/dl (1.7-2.4); Potassium 3.9 mmol/L (3.5-5.1); Total Protein 6.6 gm/dl (6.0-8.3)
--- NOTE | 2024-01-12 07:23 | XRay Report ---
XR chest 1V not portable HISTORY: 68 years-old Male Sepsis acute sepsis COMPARISON: Chest CT 11/22/2023 TECHNIQUE: PA view the chest FINDINGS: Cardiomediastinal and hilar silhouettes are within normal limits. Mild linear areas of consolidation within the lung bases redemonstrated with chronic interstitial coarsening. No pneumothorax, large ple ural effusion or lobar airspace consolidation. Degenerative changes of the shoulders and spine. IMPRESSION: 1. Cardiomegaly without acute process. 2. Chronic interstitial coarsening with areas of bibasilar atelectasis versus scarring. ACT 112: Negative or not required by law. The above report was generated using voice recognition software. It may contain grammatical, syntax o r spelling errors. Electronically signed by: Devin Mena M.D. 01/12/2024 7:22 AM
--- NOTE | 2024-01-12 07:56 | Hospitalist Progress Note ---
Date of Service January 12, 2024 Assessment & Plan (1) Infection due to extended spectrum beta lactamase (ESBL) producing Proteus mirabilis: Plan: ESBL Proteus UTI/chronic Lance catheter- From cultures growing on 01/08/2024 Patient had been discharged on Omnicef from the ED that evening Patient has been called back in due to growing the above resistance bacteria Present urinalysis looks significantly improved with improved hydration since visit in the ED Follow urine culture and sensitivity from this evening Continue Invanz 1 g IV every 24 hours begun in the ED 01/11 Eval this morning, nursing and aide from [facility] in room, nursing from [facility] called and case discussed on the phone. Aide getting patient up to chair, patient appears pleasant, nonverbal at baseline but did well with transfer to chair. Given resistance on urine culture needing continued IV antibiotics and inabiltiy to continue IV abx even once daily at [facility], will need to remain inpatient to complete 7 day course Catheter exchanged in the ER Continue Ertapenem IV daily x 7 days, then will plan for discharge following. WBC wnl/afebrile. Monitor blood cultures (procal0.35) (2) Acute UTI: Plan: see above, theoretically could consider fosfomycin PO 3gm dose and repeat in 3 days however only approved at present time for ESBL ECOLI not proteus and we do not run sensitivities for fosfomycin for such lance catheter exchanged in ER prior, monitor for need for exchange again, otherwise will need urology follow up at discharge (3) Complication of Lance catheter: (4) Intellectual disability: Plan: Seizure disorder/intellectual disability/manic depressive disorder- Continue meds through the PEG tube: cloazapine (5) Myelodysplasia (myelodysplastic syndrome): (6) Manic-depressive disorder: (7) Seizure disorder: (8) Uses feeding tube: Plan: Esophageal dyskinesia/GERD- Patient receives nutrition and medications through PEG tube Nutrition consulted as takes high calorie boost 3x/daily per aide in room also resumed home chlorhexidine mouth rinse BID, segun PERRY as takes at home/not ordered on admission Plan continued inpatient stay on IV ertapenem to complete course for ESBL Proteus UTI Admission and Anticipated Discharge Date Admission Date: January 11, 2024 Subjective Eval this morning, nursing and aide from [facility] in room, nursing from [facility] called and case discussed on the phone. Aide getting patient up to chair, patient appears pleasant, nonverbal at baseline but did well with transfer to chair. Given resistance on urine culture needing continued IV antibiotics. Discussed possible fosfomycin for coverage however is for ESBL Ecoli, but theoretically could be considered however we don't run sensitivities for this. Blood cultures pending but anticipate 7 day course. Anticipating 7 day inpatient stay as not able to continue IV abx at [facility] facility. Questions/concerns addressed at this time. Physical Exam Physical Exam: General: 68male getting up out of bed to chair with aide and nursing, NAD, smiling, nonverbal at baseline Head atraumatic, normocephalic, mmm, trachea midline Resp: even/unlabored, no distress, on room air CV: RRR, no pitting edema/calf tenderness GI: +BS, peg tube in place, aid going to get connector from car : lance draining yellow urine Psych: at baseline, cooperative ff Results & Data Results & Data Vital Signs (Past 12 Hours) Vital Signs Temp Pulse Pulse Pulse Resp BP BP 01/12/24 07:28 36.5 C 81 16 130/63 01/12/24 00:13 36.9 C 84 16 01/12/24 00:13 36.9 C 84 16 01/11/24 22:00 80 22 139/86 01/11/24 21:31 79 22 01/11/24 21:07 79 20 01/11/24 21:07 01/11/24 21:06 79 20 01/11/24 21:03 79 19 BP Pulse Ox O2 Del Method 01/12/24 07:28 96 Room Air 01/12/24 00:13 155/79 H 99 Room Air 01/12/24 00:13 155/79 H 99 Room Air 01/11/24 22:00 96 Room Air 01/11/24 21:31 96 01/11/24 21:07 96 Room Air 01/11/24 21:07 96 Room Air 01/11/24 21:06 132/66 96 Room Air 01/11/24 21:03 96 Laboratory Results 01/12/24 01/11/24 01/11/24 Range/Units 05:50 Unknown 19:50 WBC 5.07 5.99 (4.8-10.8) K/ul RBC 3.28 L 3.60 L (4.70-6.10) M/uL Hgb 10.2 L 11.4 L (14.0-18.0) g/dl Hct 31.5 L 35.1 L (42.0-52.0) % MCV 96.0 97.5 (80.0-100.0) fL MCH 31.1 31.7 (25.0-34.0) pg MCHC 32.4 32.5 (32.0-36.0) g/dL RDW Std Deviation 46.9 H 47.8 H (36.4-46.3) fL RDW Coeff of Isaac 13.2 13.3 (11.5-14.5) % Plt Count 191 189 (130-400) K/uL MPV 12.0 12.3 (9.4-12.4) fL Immature Gran % (Auto) 0.8 0.5 % Neut % (Auto) 52.2 58.9 % Lymph % (Auto) 28.8 23.2 % Blaine % (Auto) 14.4 14.4 % Eos % (Auto) 2.8 2.3 % Baso % (Auto) 1.0 0.7 % Neut # (Auto) 2.65 3.53 (1.40-6.50) K/uL Lymph # (Auto) 1.46 1.39 (1.20-3.40) K/uL Blaine # (Auto) 0.73 H 0.86 H (0.11-0.59) K/uL Eos # (Auto) 0.14 0.14 (0.00-0.50) K/uL Baso # (Auto) 0.05 0.04 (0.00-0.20) K/uL Immature Gran # (Auto) 0.04 0.03 (0.01-0.20) K/uL PT 11.0 (9.0-12.0) Seconds INR 1.0 (0.9-1.1) APTT 29 (21-31) Seconds PTT Ratio 1.1 Sodium 143 139 (136-145) mmol/L Potassium 3.9 3.7 (3.5-5.1) mmol/L Chloride 110 H 105 (98-107) mmol/L Carbon Dioxide 28 27 (21-32) mmol/L Anion Gap 5 7 (3-11) BUN 26 H 33 H (6-23) mg/dl Creatinine 0.88 0.98 (0.6-1.4) mg/dl Est Cr Clr Drug Dosing 64.7 Not Reportable Est GFR ( Amer) 102.3 91.4 ml/min Est GFR (Non-Af Amer) 88.3 78.9 ml/min BUN/Creatinine Ratio 29.5 H 33.7 H (10-20) Glucose 106 H 119 H (70-99(Fasting)) mg/dl Lactate 1.2 (0.4-2.0) mmol/L Calcium 9.4 10.0 (8.6-10.3) mg/dl Magnesium 2.1 2.1 (1.7-2.4) mg/dl Total Bilirubin 0.3 0.3 (0.2-1.0) mg/dl AST 14 17 (13-39) U/L ALT 17 19 (7-52) U/L Alkaline Phosphatase 115 H 146 H (34-104) U/L Troponin I High Sens 13.1 (0-20) pg/ml Total Protein 6.6 7.9 (6.0-8.3) gm/dl Albumin 3.3 L 3.7 (3.4-5.0) gm/dl Globulin 3.3 4.2 H (2.5-4.0) gm/dl Albumin/Globulin Ratio 1.0 0.9 (0.9-2) Procalcitonin 0.35 (0-0.5) ng/ml Urine Color Yellow Urine Appearance Clear (Clear) Urine pH 5.5 (4.5-7.5) Ur Specific [place] 1.009 (1.000-1.030) Urine Protein Negative (Negative) Urine Glucose (UA) Negative (Negative) Urine Ketones Negative (Negative) Urine Blood Negative (Negative) Urine Nitrite Negative (Negative) Urine Bilirubin Negative (Negative) Urine Urobilinogen Negative (Negative) Ur Leukocyte Esterase 1+ H (Negative) Urine WBC (Auto) 0-5 (0-5) /hpf Urine RBC (Auto) 0-2 (0-2) /hpf U Hyaline Cast (Auto) 3-5 H (0-2) /lpf U Epithel Cells (Auto) 0-2 (0-2) /hpf Urine Bacteria (Auto) None Seen (None Seen) Diagnostic Findings Chest X-Ray 01/11/24 19:32 XR chest 1V not portable HISTORY: 68 years-old Male Sepsis acute sepsis COMPARISON: Chest CT 11/22/2023 TECHNIQUE: PA view the chest FINDINGS: Cardiomediastinal and hilar silhouettes are within normal limits. Mild linear areas of consolidation within the lung bases redemonstrated with chronic interstitial coarsening. No pneumothorax, large pleural effusion or lobar airspace consolidation. Degenerative changes of the shoulders and spine. IMPRESSION: 1. Cardiomegaly without acute process. 2. Chronic interstitial coarsening with areas of bibasilar atelectasis versus scarring. ACT 112: Negative or not required by law. The above report was generated using voice recognition software. It may contain grammatical, syntax or spelling errors. Electronically signed by: Devin Mena M.D. 01/12/2024 7:22 AM PG Care Time/CCT Total # of Minutes Spent Total Time Spent with Patient: Total time spent is greater than 50% in coordination of care (as documented) at patient's floor/unit and/or counseling patient: Coding Level of Care Code 81924 SUB INP/OBS CARE 3/50MIN Diagnoses Infection due to extended spectrum beta lactamase (ESBL) producing Proteus mirabilis A49.8; Z16.12 Acute UTI N39.0 Complication of Lance catheter T83.9XXA Encounter type: initial encounter Intellectual disability F79 Myelodysplasia (myelodysplastic syndrome) D46.9 Manic-depressive disorder F31.9 Seizure disorder G40.909 Uses feeding tube Z97.8 (3) Complication of Lance catheter Encounter type: initial encounter Qualified Code(s): T83.9XXA - Unspecified complication of genitourinary prosthetic device, implant and graft, initial encounter
[2024-01-12] MEDS: MULTIVITAMIN CHEWABLE TAB PO SCH (08:51)
[2024-01-12] MEDS: cloZAPine 25 MG TAB PO SCH ×2 (08:51→21:47)
[2024-01-12] MEDS: DOCUSATE SODIUM SYRUP 100 MG/10 ML UDC GT SCH (08:51)
[2024-01-12] MEDS: CETIRIZINE HCL 10 MG TABLET PO SCH (08:51)
[2024-01-12] MEDS: POLYETHYLENE (MIRALAX) 17 GM PACK PEG SCH (08:51)
[2024-01-12] MEDS: allopurinoL 100 MG TAB PEG SCH (08:51)
[2024-01-12] MEDS: CYANOCOBALAMIN (B-12) 500 MCG TABLET GT SCH (08:51)
[2024-01-12] MEDS: LACTOBACILLUS ACIDOPHILUS 1 GM PACK GT SCH (08:52)
[2024-01-12] MEDS: FLUTICASONE PROPIONATE NA SPR 16 GM BTL NAE SCH (08:52)
[2024-01-12] MEDS: HEPARIN SOD 5,000 UNIT/0.5 ML VIAL SQ SCH (08:52)
[2024-01-12] MEDS: SACCHAROMYCES BOULARDII 250 MG CAP PO SCH (08:52)
[2024-01-12] MEDS: MENTHOL-ZINC OXIDE 360 APPLN/120 GM TUBE EXT SCH (08:53)
[2024-01-12] MEDS ORDERED: NON-FORMULARY MEDICATION (Food Supplemt, Lactose-Reduced Liquid) feeding tube SCH (09:00)
[2024-01-12] MEDS: TUBE FEEDING WATER FLUSH PEG SCH (11:20)
[2024-01-12] MEDS: NUTREN LIQD 2.0 1,000 ML BAG PEG SCH (12:55)
[2024-01-12] MEDS: guaiFENesin/DEXTROM SYRUP 200MG/20MG 10ML UDC GT SCH (13:50)
--- NOTE | 2024-01-12 15:15 | Communication Note ---
Date of Service: January 12, 2024 Contacting CM to see if possible to arrange abx through [facility] given only once a day. CM to touch base w/ [facility]/provider to see if able to transport daily. Would not be able to arrange today/also worries about going septic as done in the past. Working with pharmacy to move up timing for Ertapenem by 2 hours daily to get on a more normal schedule if able to accommodate and could potentially discharge on Monday after dose and have last 2 through [facility]. Will continue inpatient stay for now
[2024-01-12] MEDS: ERTAPENEM SODIUM 1,000 MG in SYRINGE 0 ML IV SCH (19:00)
[2024-01-12] MEDS ORDERED: ERTAPENEM SODIUM 1,000 MG in SYRINGE 0 ML IV SCH (21:00)
[2024-01-12] MEDS: CHLORHEXIDINE GLUCONATE 0.12% 480 ML MT SCH (21:47)
[2024-01-12] MEDS: cloZAPine 100 MG TAB PO SCH (21:48)
[2024-01-13] MEDS: LEVALBUTEROL 1.25 MG/3 ML NEB INH PRN (00:17)
[2024-01-13 06:56] LABS: Basophils # (auto) 0.03 K/uL (0.00-0.20); Basophils % (auto) 0.7 %; Eosinophils # (auto) 0.11 K/uL (0.00-0.50); Eosinophils % (auto) 2.4 %; Hematocrit (blood only) 31.7 % (42.0-52.0); Hemoglobin 10.2 g/dl (14.0-18.0); Immature Granulocytes # (auto) 0.02 K/uL (0.01-0.20); Immature Granulocytes % (auto) 0.4 %; Lymphocytes # (auto) 1.55 K/uL (1.20-3.40); Lymphocytes % (auto) 33.6 %; Mean Corpuscular Hemoglobin 31.4 pg (25.0-34.0); Mean Corpuscular Hgb Conc 32.2 g/dL (32.0-36.0); Mean Corpuscular Volume 97.5 fL (80.0-100.0); Mean Platelet Volume 12.5 fL (9.4-12.4); Monocytes # (auto) 0.67 K/uL (0.11-0.59); Monocytes % (auto) 14.5 %; Neutrophils # (auto) 2.23 K/uL (1.40-6.50); Neutrophils % (auto) 48.4 %; Platelet Count 183 K/uL (130-400); RDW Coefficient of Variation 13.2 % (11.5-14.5); RDW Standard Deviation 47.6 fL (36.4-46.3); Red Blood Count 3.25 M/uL (4.70-6.10); White Blood Count 4.61 K/ul (4.8-10.8)
[2024-01-13 07:13] LABS: Est GFR (African American) 91.4 ml/min; Est GFR (Non-African American) 78.9 ml/min; Potassium 3.9 mmol/L (3.5-5.1)
[2024-01-13 07:14] LABS: Albumin Level 3.3 gm/dl (3.4-5.0); BUN Creatinine Ratio 26.5 (10-20); Bilirubin,Total 0.2 mg/dl (0.2-1.0); Calcium 9.3 mg/dl (8.6-10.3); Creatinine Clr Calc Pharmacy 58.1 ml/min; Globulin 3.3 gm/dl (2.5-4.0); Magnesium 2.1 mg/dl (1.7-2.4); Total Protein 6.6 gm/dl (6.0-8.3)
--- NOTE | 2024-01-13 08:22 | Hospitalist Progress Note ---
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 Continue ertapenem 1 g IV daily No leukocytosis, afebrile Repeat UA on admission without bacteria Blood cultures currently without growth Unfortunately not able to DC to [facility] on once daily IV antibiotics as not comfortable with administration. Initially planning on continued inpatient stay through completion of this course (this upcoming monday) however pending status throughout this weekend if able to arrange final 2 doses through [facility] on Monday and Monday could be considered. - Notified case management to continue to follow for this possibility and to f/u with their coordinator on Monday. Working with pharmacy on moving up timing of Invanz if able to accomodate this plan. Of note Lasix 10 mg is on [facility] medication list however this was discussed with his aide in the room and they monitor his weights and utilize this for weight gain 3 pounds in a day or 5 pounds in a week it appears but has not used this in quite some time. Does not appear significantly volume overloaded at this time and his admission chest x-ray noted cardiomegaly without acute process with chronic interstitial coarsening and patient remains on room air. Daily weights added (2) Acute UTI: Plan: see above, theoretically could consider fosfomycin PO 3gm dose and repeat in 3 days however only approved at present time for ESBL ECOLI not proteus and we do not run sensitivities for fosfomycin for such lance catheter exchanged in ER prior, monitor for need for exchange again, otherwise will need urology follow up at discharge (3) Complication of Lance catheter: Plan: Has been changed in the emergency room as above and will require urology outpatient follow-up (4) Intellectual disability: Plan: Seizure disorder/intellectual disability/manic depressive disorder- Home because of pain has been continued as taking at home (5) Myelodysplasia (myelodysplastic syndrome): (6) Manic-depressive disorder: Plan: Mood appears quite stable at this time on home regimen (7) Seizure disorder: Plan: No active seizure activity witnessed (8) Uses feeding tube: Plan: Esophageal dyskinesia/GERD- Patient receives nutrition and medications through PEG tube Nutrition consulted as takes high calorie boost 3x/daily per aide in room and was started back 5/3 Other home meds--> resumed home chlorhexidine mouth rinse BID, segun PERRY as takes at home/not ordered on admission Plan Continued inpatient stay as outlined above but can consider potential discharge on Monday with additional 2 doses through [facility] if [facility] able to transport and accommodate. Case management to follow Admission and Anticipated Discharge Date Admission Date: January 11, 2024 Subjective Evaluated this morning, getting washed up by nursing scheduler. Doing well, moved bowels yesterday. Delayed to start boost supplements but continued. Did have some loosened stool but aide reports not uncommon while on abx and will monitor. Discussed monitoring over weekend but if stable by monday can consider additional 2 doses through [facility] to complete course. Only complaints ronda has is that he wants his IV out. Discussed need for IV abx but if going through [facility] could just have them start IV/give daily x 2 days rather than continue IV? DId ask about lasix -- aide reports only given for weight gain and haven't had to give in quite some time. Questions/concerns addressed at this time. Physical Exam Physical Exam: General: 68male getting washed up by aide, in bathroom sitting up on toilet, NAD Head atraumatic, normocephalic, mmm, trachea midline Resp: even/unlabored, no distress, on room air CV: RRR, no pitting edema/calf tenderness GI: +BS, peg tube in place,nontender : lance draining yellow urine Psych: at baseline, cooperative Results & Data Results & Data Vital Signs (Past 12 Hours) Vital Signs Temp Pulse Resp BP Pulse Ox O2 Del Method 01/13/24 08:10 37.1 C 83 16 129/62 93 Room Air 01/13/24 00:18 92 H 18 95 Room Air 01/12/24 22:44 36.7 C 88 18 114/69 96 Room Air 01/12/24 20:40 Room Air Laboratory Results 01/13/24 Range/Units 06:18 WBC 4.61 L (4.8-10.8) K/ul RBC 3.25 L (4.70-6.10) M/uL Hgb 10.2 L (14.0-18.0) g/dl Hct 31.7 L (42.0-52.0) % MCV 97.5 (80.0-100.0) fL MCH 31.4 (25.0-34.0) pg MCHC 32.2 (32.0-36.0) g/dL RDW Std Deviation 47.6 H (36.4-46.3) fL RDW Coeff of Isaac 13.2 (11.5-14.5) % Plt Count 183 (130-400) K/uL MPV 12.5 H (9.4-12.4) fL Immature Gran % (Auto) 0.4 % Neut % (Auto) 48.4 % Lymph % (Auto) 33.6 % Gray % (Auto) 14.5 % Eos % (Auto) 2.4 % Baso % (Auto) 0.7 % Neut # (Auto) 2.23 (1.40-6.50) K/uL Lymph # (Auto) 1.55 (1.20-3.40) K/uL Gray # (Auto) 0.67 H (0.11-0.59) K/uL Eos # (Auto) 0.11 (0.00-0.50) K/uL Baso # (Auto) 0.03 (0.00-0.20) K/uL Immature Gran # (Auto) 0.02 (0.01-0.20) K/uL Sodium 145 (136-145) mmol/L Potassium 3.9 (3.5-5.1) mmol/L Chloride 111 H (98-107) mmol/L Carbon Dioxide 29 (21-32) mmol/L Anion Gap 5 (3-11) BUN 26 H (6-23) mg/dl Creatinine 0.98 (0.6-1.4) mg/dl Est Cr Clr Drug Dosing 58.1 ml/min Est GFR ( Amer) 91.4 ml/min Est GFR (Non-Af Amer) 78.9 ml/min BUN/Creatinine Ratio 26.5 H (10-20) Glucose 103 H (70-99(Fasting)) mg/dl Calcium 9.3 (8.6-10.3) mg/dl Magnesium 2.1 (1.7-2.4) mg/dl Total Bilirubin 0.2 (0.2-1.0) mg/dl AST 16 (13-39) U/L ALT 18 (7-52) U/L Alkaline Phosphatase 117 H (34-104) U/L Total Protein 6.6 (6.0-8.3) gm/dl Albumin 3.3 L (3.4-5.0) gm/dl Globulin 3.3 (2.5-4.0) gm/dl Albumin/Globulin Ratio 1.0 (0.9-2) PG Care Time/CCT Total # of Minutes Spent Total Time Spent with Patient: Total time spent is greater than 50% in coordination of care (as documented) at patient's floor/unit and/or counseling patient: Coding Level of Care Code 10466 SUB INP/OBS CARE 2MIN Diagnoses Infection due to extended spectrum beta lactamase (ESBL) producing Proteus mirabilis A49.8; Z16.12 Acute UTI N39.0 Complication of Lance catheter T83.9XXA Encounter type: initial encounter Intellectual disability F79 Myelodysplasia (myelodysplastic syndrome) D46.9 Manic-depressive disorder F31.9 Seizure disorder G40.909 Uses feeding tube Z97.8 (3) Complication of Lance catheter Encounter type: initial encounter Qualified Code(s): T83.9XXA - Unspecified complication of genitourinary prosthetic device, implant and graft, initial encounter
--- NOTE | 2024-01-14 08:13 | Hospitalist Progress Note ---
Date of Service January 14, 2024 Assessment & Plan (1) Infection due to extended spectrum beta lactamase (ESBL) producing Proteus mirabilis: Plan: ESBL Proteus UTI/chronic Lance catheter Catheter exchanged in the ER on 01/07 and was discharged on Omnicef however cultures showed ESBL Proteus with resistance and only sensitive to ertapenem and meropenem. Continue ertapenem 1 g IV daily No leukocytosis, afebrile Repeat UA on admission without bacteria Blood cultures currently without growth Unfortunately not able to DC to [facility] on once daily IV antibiotics as not comfortable with administration. Initially planning on continued inpatient stay through completion of this course (this upcoming monday) however pending status throughout this weekend if able to arrange final 2 doses through [facility] on Monday and Monday could be considered. - Notified case management to continue to follow for this possibility and to f/u with their coordinator on Monday. Working with pharmacy on moving up timing of Invanz if able to accommodate this plan. Lasix 10 mg is on [facility] medication list however this was discussed with his aide in the room and they monitor his weights and utilize this for weight gain 3 pounds in a day or 5 pounds in a week it appears but has not used this in quite some time. Did not appear significantly volume overloaded 01/12, CXR on admit without acute process but noted chronic interstitial coarsening/patient on room air and no cough. Daily weights added / CXR ordered for +cough today. From [facility]/no RSV/Flu/COVID checked on admission and will obtain biofire for completeness Remains on RA and no leukocytosis, continues on Invanz for UTI as above, ?some aspirations w/ bibasilar crackles vs atelectasis. Unlikely to be able to use incentive spirometer and can consider adding hypertonic saline for mucus plugging if needed. Resumed home Robitussin day prior however as discussed with aide day prior, on lasix as needed for weight gain and has not had to use in some time and added daily weights to orders and is 149lb today (baseline reported 144-146lb) and ordered lasix 10mg x1 through PEG tube and will monitor response/biofire. Already on isolation precautions for ESBL infection as above but mask to be worn in room until biofire obtained/resulted If no evidence for pneumonia/biofire negative and improvement w/ lasix use can consider f/u discussion for continued abx through [facility] for completetion of therapy as discussed with aide in room. Otherwise will plan to remain inpatient to complete course (2) Acute UTI: Plan: see above, theoretically could consider fosfomycin PO 3gm dose and repeat in 3 days however only approved at present time for ESBL ECOLI not proteus and we do not run sensitivities for fosfomycin for such lance catheter exchanged in ER prior, monitor for need for exchange again otherwise will need urology follow up at discharge (3) Complication of Lance catheter: Plan: s/p exchange in ER as above, urology f/u outpatient (4) Intellectual disability: Plan: Seizure disorder/intellectual disability/manic depressive disorder- Continue meds through the PEG tube: clozapine (5) Myelodysplasia (myelodysplastic syndrome): (6) Manic-depressive disorder: Plan: Mood appears quite stable at this time on home regimen (7) Seizure disorder: Plan: No active seizure activity witnessed (8) Uses feeding tube: Plan: Esophageal dyskinesia/GERD- Patient receives nutrition and medications through PEG tube (high calorie boost 3x/day per aide caring for him) and nutrition consulted and continuing on supplmenetation Other home meds: oral chlorhexidine mouth rinse BID/Robitussin DM resumed Plan continued inpatient stay, checking CXR/biofire, dose of lasix as outlined and will see if able to complete remainder of abx treatment through [facility] if testing negative/cough resolved w/ home dose of lasix for weight gain Having antibiotics slowly moved up (was to be 5pm yesterday but not given til closer to 6 as needing new IV site) and will attempt closer to 4-5pm today and should be during day dosing if able to arrange through [facility] for ease /flexibility with scheduling. CM to follow aide updated in room 01/13 Admission and Anticipated Discharge Date Admission Date: January 11, 2024 Subjective Eval this morning, caregiver in room, sitting up in recliner chair. Little tired today/has a cough, wet appearing. Discussed obtaining CXR for eval and potential hypertonic saline for any mucus plugging as likely unable to adequately participate with incentive spirometer. Robitussin resumed as taking at home day prior. no leukocytosis on labs. Afebrile. Will plan to monitor CXR/possible adding hypertonic saline but if no pneumonia and doing well tomorrow will follow up discussions about possible dc with [facility] tx for additional remainder of abx treatment. Will also obtain biofire as none ordered on admission in [facility], no flu/rsv/covid swab ordered on admission either and cough new. Is on room air, 95% at present time, some crackles in the bases. Baseline weight for his lasix monitoring is between 144-146lb. Presently 149lb in system and will order dose x 1, likely from IVF on admission. Urine in lance appears clear yellow in color at this time. Questions/concerns addressed at this time. Physical Exam Physical Exam: General: 68male sitting up in chair, appears fatigued today but NAD, +cough/wet sounding but on room air 95%, weight reported as 149lb (baseline 144-146 per aide in room who has been with him for 4 years) Head atraumatic, normocephalic, mmm, trachea midline Resp: even/unlabored, faint bibasilar crackles but no obvious wheezing/rales, +cough, on room air CV: RRR, no pitting edema/calf tenderness GI: +BS, peg tube in place,nontender : lance draining clear yellow urine Psych: at baseline, cooperative but tired today Results & Data Results & Data Vital Signs (Past 12 Hours) Vital Signs Temp Pulse Resp BP Pulse Ox O2 Del Method 01/14/24 07:14 36.6 C 70 16 124/72 95 Room Air Laboratory Results 01/14/24 Range/Units 07:32 WBC 4.80 (4.8-10.8) K/ul RBC 3.20 L (4.70-6.10) M/uL Hgb 10.1 L (14.0-18.0) g/dl Hct 31.6 L (42.0-52.0) % MCV 98.8 (80.0-100.0) fL MCH 31.6 (25.0-34.0) pg MCHC 32.0 (32.0-36.0) g/dL RDW Std Deviation 47.8 H (36.4-46.3) fL RDW Coeff of Isaac 13.3 (11.5-14.5) % Plt Count 181 (130-400) K/uL MPV 12.3 (9.4-12.4) fL Immature Gran % (Auto) 0.6 % Neut % (Auto) 44.7 % Lymph % (Auto) 37.1 % [place] % (Auto) 13.5 % Eos % (Auto) 3.3 % Baso % (Auto) 0.8 % Neut # (Auto) 2.14 (1.40-6.50) K/uL Lymph # (Auto) 1.78 (1.20-3.40) K/uL [place]once # (Auto) 0.65 H (0.11-0.59) K/uL Eos # (Auto) 0.16 (0.00-0.50) K/uL Baso # (Auto) 0.04 (0.00-0.20) K/uL Immature Gran # (Auto) 0.03 (0.01-0.20) K/uL Sodium 143 (136-145) mmol/L Potassium 3.9 (3.5-5.1) mmol/L Chloride 109 H (98-107) mmol/L Carbon Dioxide 30 (21-32) mmol/L Anion Gap 4 (3-11) BUN 24 H (6-23) mg/dl Creatinine 0.93 (0.6-1.4) mg/dl Est Cr Clr Drug Dosing 61.2 ml/min Est GFR ( Amer) 97.4 ml/min Est GFR (Non-Af Amer) 84.1 ml/min BUN/Creatinine Ratio 25.8 H (10-20) Glucose 97 (70-99(Fasting)) mg/dl Calcium 9.0 (8.6-10.3) mg/dl Magnesium 2.0 (1.7-2.4) mg/dl Total Bilirubin 0.2 (0.2-1.0) mg/dl AST 13 (13-39) U/L ALT 15 (7-52) U/L Alkaline Phosphatase 110 H (34-104) U/L Total Protein 6.6 (6.0-8.3) gm/dl Albumin 3.2 L (3.4-5.0) gm/dl Globulin 3.4 (2.5-4.0) gm/dl Albumin/Globulin Ratio 0.9 (0.9-2) PG Care Time/CCT Total # of Minutes Spent Total Time Spent with Patient: Total time spent is greater than 50% in coordination of care (as documented) at patient's floor/unit and/or counseling patient: Coding Level of Care Code 94246 SUB INP/OBS CARE 3/50MIN Diagnoses Infection due to extended spectrum beta lactamase (ESBL) producing Proteus mirabilis A49.8; Z16.12 Acute UTI N39.0 Complication of Lance catheter T83.9XXA Encounter type: initial encounter Intellectual disability F79 Myelodysplasia (myelodysplastic syndrome) D46.9 Manic-depressive disorder F31.9 Seizure disorder G40.909 Uses feeding tube Z97.8 (3) Complication of Lance catheter Encounter type: initial encounter Qualified Code(s): T83.9XXA - Unspecified complication of genitourinary prosthetic device, implant and graft, initial encounter
[2024-01-14 08:14] LABS: Basophils # (auto) 0.04 K/uL (0.00-0.20); Basophils % (auto) 0.8 %; Eosinophils # (auto) 0.16 K/uL (0.00-0.50); Eosinophils % (auto) 3.3 %; Hematocrit (blood only) 31.6 % (42.0-52.0); Hemoglobin 10.1 g/dl (14.0-18.0); Immature Granulocytes # (auto) 0.03 K/uL (0.01-0.20); Immature Granulocytes % (auto) 0.6 %; Lymphocytes # (auto) 1.78 K/uL (1.20-3.40); Lymphocytes % (auto) 37.1 %; Mean Corpuscular Hemoglobin 31.6 pg (25.0-34.0); Mean Corpuscular Volume 98.8 fL (80.0-100.0); Mean Platelet Volume 12.3 fL (9.4-12.4); Monocytes # (auto) 0.65 K/uL (0.11-0.59); Monocytes % (auto) 13.5 %; Neutrophils # (auto) 2.14 K/uL (1.40-6.50); Neutrophils % (auto) 44.7 %; Platelet Count 181 K/uL (130-400); RDW Coefficient of Variation 13.3 % (11.5-14.5); RDW Standard Deviation 47.8 fL (36.4-46.3)
[2024-01-14 08:28] LABS: Albumin Globulin Ratio 0.9 (0.9-2); Albumin Level 3.2 gm/dl (3.4-5.0); BUN Creatinine Ratio 25.8 (10-20); Bilirubin,Total 0.2 mg/dl (0.2-1.0); Creatinine Clr Calc Pharmacy 61.2 ml/min; Est GFR (African American) 97.4 ml/min; Est GFR (Non-African American) 84.1 ml/min; Globulin 3.4 gm/dl (2.5-4.0); Potassium 3.9 mmol/L (3.5-5.1); Total Protein 6.6 gm/dl (6.0-8.3)
--- NOTE | 2024-01-14 10:58 | XRay Report ---
XR chest 1V portable HISTORY: +cough, crackles COMPARISON: Chest 01/11/2024. FINDINGS: No pneumothorax. No pleural effusions. The heart is mildly enlarged. No evidence for pulmon roseanna edema. Chronic interstitial thickening persists. Right basilar linear densities have improved. No new focal lung consolidations. Rotated study. No acute fractures. IMPRESSION: Stable cardiomegaly and chronic interstitial thickening. ACT 112: Negative or not required by law. Electronically signed by: Reji Cooney M.D. 01/14/2024 10:57 AM
[2024-01-14] MEDS: FUROSEMIDE 20 MG TAB PO ONE (13:24)
[2024-01-14 14:35] LABS: Adenovirus PCR Not Detected (NotDetected); Bordetella parapertussis PCR Not Detected (NotDetected); Bordetella pertussis PCR Not Detected (NotDetected); Chlamydia pneumoniae PCR Not Detected (NotDetected); Coronavirus 229E PCR Not Detected (NotDetected); Coronavirus CoV-2 (COVID19)PCR Not Detected (NotDetected); Coronavirus HKU1 PCR Not Detected (NotDetected); Coronavirus NL63 PCR Not Detected (NotDetected); Coronavirus OC43PCR Not Detected (NotDetected); Human Metapneumovirus PCR Not Detected (NotDetected); Influenza A PCR Not Detected (NotDetected); Influenza B PCR Not Detected (NotDetected); Mycoplasma pneumoniae PCR Not Detected (NotDetected); Parainfluenza Virus 1 PCR Not Detected (NotDetected); Parainfluenza Virus 2 PCR Not Detected (NotDetected); Parainfluenza Virus 3 PCR Not Detected (NotDetected); Parainfluenza Virus 4 PCR Not Detected (NotDetected); Respiratory Syncytial VirusPCR Not Detected (NotDetected); Rhinovirus/Enterovirus PCR Not Detected (NotDetected)
--- NOTE | 2024-01-14 21:33 | Electrocardiogram Report ---
Test Reason : Blood Pressure : / mmHG Vent. Rate : 087 BPM Atrial Rate : 087 BPM P-R Int : 156 ms QRS Dur : 106 ms QT Int : 386 ms P-R-T Axes : 044 -58 028 degrees QTc Int : 464 ms Normal sinus rhythm Left axis deviation Moderate voltage criteria for LVH, may be normal variant ( R in aVL , Jason product ) Abnormal ECG When compared with ECG of 01-SEP-2023 11:46, No significant change Confirmed by Marcus Rodriguez ([id number]) on 01/14/2024 9:33:22 PM Referred By: REFERRED SELF Confirmed By:Marcus Rodriguez
[2024-01-15 06:04] LABS: Hematocrit (blood only) 30.9 % (42.0-52.0); Hemoglobin 9.7 g/dl (14.0-18.0); Mean Corpuscular Hemoglobin 30.8 pg (25.0-34.0); Mean Corpuscular Hgb Conc 31.4 g/dL (32.0-36.0); Mean Corpuscular Volume 98.1 fL (80.0-100.0); Platelet Count 179 K/uL (130-400); RDW Coefficient of Variation 13.3 % (11.5-14.5); RDW Standard Deviation 47.6 fL (36.4-46.3); Red Blood Count 3.15 M/uL (4.70-6.10); White Blood Count 5.48 K/ul (4.8-10.8)
--- NOTE | 2024-01-15 08:08 | Hospitalist Progress Note ---
Date of Service January 15, 2024 Assessment & Plan (1) Infection due to extended spectrum beta lactamase (ESBL) producing Proteus mirabilis: Plan: ESBL Proteus UTI/chronic Lance catheter Isolation precautions Catheter exchanged in the ER on 01/07 and was discharged on Omnicef however cultures showed ESBL Proteus with resistance and only sensitive to ertapenem and meropenem. Unfortunately not able to DC to skills on once daily IV antibiotics as not able to accommodate with IV site 01/14 Remains afebrile, no leukocytosis prior and WBC normal. Blood cultures continue to remain NGTD Continues on Invanz IV daily (day of of therapy, last dose 01/16) Discussed with aide/skills and can potentially aim for discharge tomorrow 01/15 after Invanz dosing and can bring him back to [facility] on Monday for last dose given didn't get great sleep last night (patient on same floor yelling overnight) and suspect would be better in home environment and doing much better today/labs stable/blood cultures negative. Have been moving up timing of ertapenem to be able to accommodate this -- last dose @ 3:30pm on 01/13 and should be around 1:30pm for today's dose Provided CM rx to arrange through [facility] tomorrow if continues to do well/remain stable s/p 10mg PO lasix on 01/13 for wet cough as obtained biofire which was negative/CXR w/o acute process but noting chronic interstitial thickening however have been monitoring weights and baseline weight per aide with Marty is 144-146lb and hadn't used his prn in some time but was 149lb in system and had IMPROVEMENT/resolution in cough w/ 10mg lasix. Weight appears unchanged today but will provide additional one time dose for today and monitor labs/weights in AM but they can continue to monitor weights at skills for any ongoing prn dosing as remains on room air and no further cough. Afebrile (2) Acute UTI: Plan: see above, theoretically could consider fosfomycin PO 3gm dose and repeat in 3 days however only approved at present time for ESBL ECOLI not proteus and we do not run sensitivities for fosfomycin for such lance catheter exchanged in ER prior, monitor for need for exchange again otherwise will need urology follow up at discharge (3) Complication of Lance catheter: Plan: s/p exchange in ER as above, urology f/u outpatient (4) Intellectual disability: Plan: Seizure disorder/intellectual disability/manic depressive disorder- Continue meds through the PEG tube: clozapine (5) Myelodysplasia (myelodysplastic syndrome): (6) Manic-depressive disorder: Plan: Mood appears quite stable at this time on home regimen (7) Seizure disorder: Plan: No active seizure activity witnessed (8) Uses feeding tube: Plan: Esophageal dyskinesia/GERD- Patient receives nutrition and medications through PEG tube (high calorie boost 3x/day per aide caring for him) and nutrition consulted and continuing on supplmenetation Other home meds: oral chlorhexidine mouth rinse BID/Robitussin DM resumed Plan continued inpatient stay on Invanz but if remaining stable given better in home environment (didn't get good sleep last night/noisy patient on same floor) and looking better and they are more comfortable with his exam/how he is doing today to be able to consider dc after dose Invanz tomorrow and bring him back on Monday to get his last dose at [facility] CM notified/has rx for Invanz but will need to confirm in AM timing for [facility] with them tomorrow if no issues overnight Admission and Anticipated Discharge Date Admission Date: January 11, 2024 Subjective Evaluated this morning, aide in room. Biofire obtained, negative. CXR w/o acute pnuemonia but noted chronic inter stitial thickening. He did get dose lasix yesterday through the PEG, resolution in cough. Weights today appear unchanged but given no further cough/lung exam improved will hold off lasix for today and monitor for need for additional dose in AM. Urine clear/almost water color today. Discussed with aide and their coordinator about IV abx at dc. They cannot take back with an IV but could and would be willing to bring him back for dose through [facility] on Monday after tomorrows dose to complete if able to dc IV and jsut restart for dose in the treatment unit. Will discuss with CM to see if able to arrange, otherwise will be here to complete final dose on Monday. Physical Exam Physical Exam: General: 68male sitting up in chair, appears improved today, aide in room weight unchanged in system however no further cough, lung exam improved Head atraumatic, normocephalic, mmm, trachea midline Resp: even/unlabored, slightly diminished in the bases, improvement in bibasilar crackles, no wheezing/rales, on room air 94% CV: RRR, no pitting edema/calf tenderness GI: +BS, peg tube in place,nontender : lance draining CLEAR urine Psych: at baseline, cooperative Results & Data Results & Data Vital Signs (Past 12 Hours) Vital Signs Temp Pulse Resp BP BP Pulse Ox O2 Del Method 01/15/24 07:23 36.6 C 76 16 128/72 94 Room Air 01/14/24 22:56 90 18 97 Room Air 01/14/24 20:50 Room Air 01/14/24 20:45 36.5 C 83 16 131/70 97 Room Air Laboratory Results 01/15/24 01/14/24 01/14/24 Range/Units 05:40 Unknown 07:32 WBC 5.48 4.80 (4.8-10.8) K/ul RBC 3.15 L 3.20 L (4.70-6.10) M/uL Hgb 9.7 L 10.1 L (14.0-18.0) g/dl Hct 30.9 L 31.6 L (42.0-52.0) % MCV 98.1 98.8 (80.0-100.0) fL MCH 30.8 31.6 (25.0-34.0) pg MCHC 31.4 L 32.0 (32.0-36.0) g/dL RDW Std Deviation 47.6 H 47.8 H (36.4-46.3) fL RDW Coeff of Isaac 13.3 13.3 (11.5-14.5) % Plt Count 179 181 (130-400) K/uL MPV 12.0 12.3 (9.4-12.4) fL Immature Gran % (Auto) 0.6 % Neut % (Auto) 44.7 % Lymph % (Auto) 37.1 % [place] % (Auto) 13.5 % Eos % (Auto) 3.3 % Baso % (Auto) 0.8 % Neut # (Auto) 2.14 (1.40-6.50) K/uL Lymph # (Auto) 1.78 (1.20-3.40) K/uL [place] # (Auto) 0.65 H (0.11-0.59) K/uL Eos # (Auto) 0.16 (0.00-0.50) K/uL Baso # (Auto) 0.04 (0.00-0.20) K/uL Immature Gran # (Auto) 0.03 (0.01-0.20) K/uL Sodium 143 (136-145) mmol/L Potassium 3.9 (3.5-5.1) mmol/L Chloride 109 H (98-107) mmol/L Carbon Dioxide 30 (21-32) mmol/L Anion Gap 4 (3-11) BUN 24 H (6-23) mg/dl Creatinine 0.93 (0.6-1.4) mg/dl Est Cr Clr Drug Dosing 61.2 ml/min Est GFR ( Amer) 97.4 ml/min Est GFR (Non-Af Amer) 84.1 ml/min BUN/Creatinine Ratio 25.8 H (10-20) Glucose 97 (70-99(Fasting)) mg/dl Calcium 9.0 (8.6-10.3) mg/dl Magnesium 2.0 (1.7-2.4) mg/dl Total Bilirubin 0.2 (0.2-1.0) mg/dl AST 13 (13-39) U/L ALT 15 (7-52) U/L Alkaline Phosphatase 110 H (34-104) U/L Total Protein 6.6 (6.0-8.3) gm/dl Albumin 3.2 L (3.4-5.0) gm/dl Globulin 3.4 (2.5-4.0) gm/dl Albumin/Globulin Ratio 0.9 (0.9-2) Adenovirus (PCR) Not Detected (NotDetected) B. pertussis DNA (PCR) Not Detected (NotDetected) B.parapertussis DNA PCR Not Detected (NotDetected) C. pneumoniae DNA (PCR) Not Detected (NotDetected) Coronavirus OC43 (PCR) Not Detected (NotDetected) Coronavirus HKU1 (PCR) Not Detected (NotDetected) Coronavirus 229E (PCR) Not Detected (NotDetected) SARS-CoV-2 (PCR) Not Detected (NotDetected) Coronavirus NL63 (PCR) Not Detected (NotDetected) Human Metapneumovir PCR Not Detected (NotDetected) Influenza Type A (PCR) Not Detected (NotDetected) Influenza Type B (PCR) Not Detected (NotDetected) M. pneumoniae (PCR) Not Detected (NotDetected) Parainfluenza 1 (PCR) Not Detected (NotDetected) Parainfluenza 2 (PCR) Not Detected (NotDetected) Parainfluenza 3 (PCR) Not Detected (NotDetected) Parainfluenza 4 (PCR) Not Detected (NotDetected) RSV (PCR) Not Detected (NotDetected) Entero/Rhino (PCR) Not Detected (NotDetected) PG Care Time/CCT Total # of Minutes Spent Total Time Spent with Patient: Total time spent is greater than 50% in coordination of care (as documented) at patient's floor/unit and/or counseling patient: Coding Level of Care Code 97204 SUB INP/OBS CARE 2/35MIN Diagnoses Infection due to extended spectrum beta lactamase (ESBL) producing Proteus mirabilis A49.8; Z16.12 Acute UTI N39.0 Complication of Lance catheter T83.9XXA Encounter type: initial encounter Intellectual disability F79 Myelodysplasia (myelodysplastic syndrome) D46.9 Manic-depressive disorder F31.9 Seizure disorder G40.909 Uses feeding tube Z97.8 (3) Complication of Lance catheter Encounter type: initial encounter Qualified Code(s): T83.9XXA - Unspecified complication of genitourinary prosthetic device, implant and graft, initial encounter
[2024-01-15] MEDS: FUROSEMIDE 20 MG TAB PO ONE (15:06)
[2024-01-16 06:50] LABS: Hematocrit (blood only) 32.9 % (42.0-52.0); Hemoglobin 10.5 g/dl (14.0-18.0); Mean Corpuscular Hemoglobin 31.2 pg (25.0-34.0); Mean Corpuscular Hgb Conc 31.9 g/dL (32.0-36.0); Mean Corpuscular Volume 97.6 fL (80.0-100.0); Mean Platelet Volume 11.9 fL (9.4-12.4); Platelet Count 187 K/uL (130-400); RDW Coefficient of Variation 13.4 % (11.5-14.5); RDW Standard Deviation 47.6 fL (36.4-46.3); Red Blood Count 3.37 M/uL (4.70-6.10); White Blood Count 5.14 K/ul (4.8-10.8)
[2024-01-16 07:10] LABS: BUN Creatinine Ratio 26.9 (10-20); Calcium 9.2 mg/dl (8.6-10.3); Creatinine Clr Calc Pharmacy 59.4 ml/min; Est GFR (African American) 85.1 ml/min; Est GFR (Non-African American) 73.4 ml/min; Potassium 4.6 mmol/L (3.5-5.1)
--- NOTE | 2024-01-16 13:07 | Discharge Summary ---
Discharge Summary Date of Service January 16, 2024 Notes For Next Care Provider patient was called back to the ER after urine culture grew ESBL Proteus, sensitive to ertapenem. Lance was changed in the ED on 01/08/2024. Will receive final dose of [facility]apenem on 01/16 at [facility]. Recommend urology follow up outpatient. Blood cultures pending day of dischargeno growth at 48 hours Medication Changes From Visit ertapenem x 1 more day Admission HPI Per Admitting Provider The patient is a 68-year-old nonverbal male, with history of urinary retention and Lance catheter, CHF, myelodysplastic syndrome, microcephaly, intellectual disability, manic depressive disorder and seizure disorder. He is brought to the emergency department as noted above. His HPI and review of systems are otherwise limited as he is not able to participate due to his intellectual disability Principal Dx & Hospital Course #1 = Principal Diagnosis (1) Infection due to extended spectrum beta lactamase (ESBL) producing Proteus mirabilis: ESBL Proteus UTI/chronic Lance catheter Catheter exchanged in the ER on 01/07 and was discharged on Omnicef however cultures showed ESBL Proteus with resistance and only sensitive to ertapenem and meropenem. no leukocytosis prior and WBC normal. Blood cultures No growth 48 hours Received Ertapenem, last day 01/16 (arranged at [facility]) to compelte 7 day course. s/p 10mg PO lasix on 01/13 for wet cough as obtained biofire which was negative/CXR w/o acute process but noting chronic interstitial thickening - weight was increased given 10mg lasix with improvement - slight cough with weight gain 01/15 addition 10mg lasix given Continue to monitor weights outpatient. Recommend urology follow up at discharge (2) Complication of Lance catheter: s/p exchange in ER as above, urology f/u outpatient (3) Intellectual disability: Seizure disorder/intellectual disability/manic depressive disorder- Continue meds through the PEG tube: clozapine (4) Myelodysplasia (myelodysplastic syndrome): (5) Manic-depressive disorder: Mood appears quite stable at this time on home regimen (6) Seizure disorder: No active seizure activity witnessed (7) Uses feeding tube: Esophageal dyskinesia/GERD- Patient receives nutrition and medications through PEG tube (high calorie boost 3x/day per aide caring for him) and nutrition consulted and continuing on supplmenetation Other home meds: oral chlorhexidine mouth rinse BID/Robitussin DM resumed Plan Dispo: discharge to home today, [facility] infusion arranged for tomorrow 01/16 Discharge Exam General: NAD, pleasant but non verbal VS as above Resp: normal respiratory effort, lungs clear to auscultation CV: RRR, no murmur, Abd: normal bowel sounds, non tender, no hepatosplenomegaly : lance draining yellow urine Extremities: Moves all extremities, no edema Updated Medication List Medication Instructions Recorded Confirmed Type ostomy supplies (Adapt Stoma #28.3 grams 11/12/19 01/11/24 Rx Powder topical) nebulizer accessories #1 ea 07/30/20 01/11/24 Rx sheep skin heel protectors #1 ea 11/11/21 01/11/24 Rx diaper,brief,adult,disposable #240 ea 01/11/22 01/11/24 Rx clozapine 25 mg tablet (Clozaril) 25 mg feeding tube HS 10/27/22 01/11/24 History clozapine 50 mg tablet 50 mg feeding tube QAM 10/27/22 01/11/24 History ondansetron 4 mg disintegrating 4 mg feeding tube Q4H PRN n/v 09/01/23 01/11/24 History tablet acetaminophen 160 mg/5 mL (5 mL) 640 mg (20 mL) feeding tube Q4 PRN 10/26/23 01/11/24 Rx oral suspension fever/headache/minor aches herberth #500 mL aluminum-mag hydroxide-simethicone 30 ml feeding tube BID PRN upset 10/26/23 01/11/24 Rx 200 mg-200 mg-20 mg/5 mL oral susp stomach/vomiting #3,000 mL (Antacid Liquid) bisacodyl 10 mg rectal suppository 10 mg SD DAILY PRN Constipation 10/26/23 01/11/24 Rx #12 ea cetirizine 10 mg disintegrating 10 mg feeding tube DAILY #90 tabs 10/26/23 01/11/24 Rx tablet clotrimazole 1 % topical cream See Rx Instructions topical 10/26/23 01/11/24 Rx .COMPLEX PRN Rash #45 grams cyanocobalamin (vitamin B-12) 1,000 mcg feeding tube DAILY #30 10/26/23 01/11/24 Rx 1,000 mcg tablet (Vitamin B-12) tabs docusate sodium 50 mg/5 mL oral 100 mg (10 mL) feeding tube DAILY 10/26/23 01/11/24 Rx liquid #1,000 mL mupirocin 2 % topical ointment See Rx Instructions topical BID 11/06/23 01/11/24 Rx PRN skin abrasions #22 grams chlorhexidine gluconate 0.12 % 15 ml buccal BID #473 mL 12/01/23 01/11/24 Rx mouthwash (Peridex) Saccharomyces boulardii 250 mg 250 mg feeding tube BID #60 caps 12/04/23 01/11/24 Rx capsule diaper,brief,adult,disposable #216 ea 12/06/23 01/11/24 Rx (Wings Choice Plus Adult Briefs) compress.stocking,knee,reg,med #2 ea 12/18/23 01/11/24 Rx fluticasone propionate 50 2 spray intranasal DAILY #16 grams 12/27/23 01/11/24 Rx mcg/actuation nasal spray,suspension allopurinol 100 mg tablet 100 mg feeding tube BID 01/08/24 01/11/24 History clozapine 100 mg tablet 100 mg feeding tube HS 01/08/24 01/11/24 History fluocinonide-emollient 0.05 % 1 applic topical BID 01/08/24 01/11/24 History topical cream food supplemt, lactose-reduced 1 ea feeding tube TID 01/08/24 01/11/24 History menthol 0.44 %-zinc oxide 20.6 % 1 applic topical QID 01/08/24 01/11/24 History topical ointment (Calmoseptine) Lactobacillus acidophilus 5,000 mmu cells feeding tube DAILY 01/11/24 01/11/24 History (Acidophilus capsule) benzonatate 100 mg capsule 100 mg TID PRN cough 01/11/24 01/11/24 History dextromethorphan-guaifenesin 10 10 ml feeding tube Q6H PRN 01/11/24 01/11/24 History mg-100 mg/5 mL oral syrup COUGH/CONGESTION furosemide 10 mg/mL oral solution 10 mg feeding tube DIRECTED 01/11/24 01/11/24 History ipratropium bromide 21 mcg (0.03 2 spray intranasal Q8H PRN 01/11/24 01/11/24 History %) nasal spray postnasal drip lanolin alcohols-mineral 1 applic topical AMHS PRN DRY SKIN 01/11/24 01/11/24 History oil-w.petrolatum-ceresin topical HANDS/FEET cream (Eucerin topical cream) levalbuterol HCl 1.25 mg/3 mL 1.25 mg inhalation TID PRN 01/11/24 01/11/24 History solution for nebulization shortness of breath or wheezing or cough loperamide 1 mg/5 mL oral liquid 0 mg feeding tube DIRECTED PRN 01/11/24 01/11/24 History Diarrhea loperamide 2 mg capsule 2 mg feeding tube Q4H PRN Loose 01/11/24 01/11/24 History Stool niylstrt-cjrfgcrrlv-ijlbcluib 1 applic topical BID PRN SMALL 01/11/24 01/11/24 History topical packet CUTS/SCRAPS nystatin 100,000 unit/gram topical 1 applic topical DAILY PRN PEG 01/11/24 01/11/24 History cream TUBE SITE NEEDED nystatin 100,000 unit/gram topical 1 applic topical BID PRN PEG TUBE 01/11/24 01/11/24 History powder (Nystop) SITE NEEDED pediatric multivitamin 1 tab feeding tube DAILY 01/11/24 01/11/24 History polyethylene glycol 3350 17 17 g feeding tube Q OTHER DAY 01/11/24 01/11/24 History gram/dose oral powder (Miralax) constipation zinc oxide-cod liver oil 40 % 1 applic topical Q4H PRN 01/11/24 01/11/24 History topical paste (Desitin) BUTTOCKS/GROIN AREA NEEDED Hospital Stay Data Consultations 01/11/24 21:56 ED Decision to Admit Stat Diagnostic Imagining Performed Chest X-Ray 01/11/24 19:32 XR chest 1V not portable HISTORY: 68 years-old Male Sepsis acute sepsis COMPARISON: Chest CT 11/22/2023 TECHNIQUE: PA view the chest FINDINGS: Cardiomediastinal and hilar silhouettes are within normal limits. Mild linear areas of consolidation within the lung bases redemonstrated with chronic interstitial coarsening. No pneumothorax, large pleural effusion or lobar airspace consolidation. Degenerative changes of the shoulders and spine. IMPRESSION: 1. Cardiomegaly without acute process. 2. Chronic interstitial coarsening with areas of bibasilar atelectasis versus scarring. ACT 112: Negative or not required by law. The above report was generated using voice recognition software. It may contain grammatical, syntax or spelling errors. Electronically signed by: Devin Mena M.D. 01/12/2024 7:22 AM Chest X-Ray 01/14/24 09:23 XR chest 1V portable HISTORY: +cough, crackles COMPARISON: Chest 01/11/2024. FINDINGS: No pneumothorax. No pleural effusions. The heart is mildly enlarged. No evidence for pulmonary edema. Chronic interstitial thickening persists. Right basilar linear densities have improved. No new focal lung consolidations. Rotated study. No acute fractures. IMPRESSION: Stable cardiomegaly and chronic interstitial thickening. ACT 112: Negative or not required by law. Electronically signed by: Reji Cooney M.D. 01/14/2024 10:57 AM Pending Results Patient Have Any Pending Studies at Discharge: Yes Discharge Instructions Given to Patient (Per Discharging Provider) You have been hospitalized for a urinary tract infection that is resistant to oral antibiotics. You were treated with IV antibiotics, called Ertapenem, and will need to complete 7 day course. You will have completed 6 days while inpatient and are to have the last dose through the medical treatment unit which case management has assisted in arranging. Appointment is above, 01/16 at 1pm. You did get dose of Lasix for weight gain in the hospital and should continue to monitor weights and use this as needed as you have been in the past. Your catheter was exchanged in the emergency department and you should have ongoing follow up with primary care as well as urology in the next week to monitor your progress after discharge. Please return to the ER with any increased confusion/fever/issues with catheter or for any other symptoms concerning for you. It has been a pleasure being a part of the medical team providing for you while you have been in the hospital. Take care! Total Time Total Time Spent Total Time Spent (In Minutes): Time spend day of discharge 33 minutes including direct patient care, medication reconciliation, documentation, review of labs and images, and coordination of care. Supervising Physician Co-Signing Physician Notes Attending Attestation and Discharge Note: Pt seen/examined, chart reviewed, discharge care plan d/w PA Betsy Malackowski. I agree w/ the stark components of her discharge summary. 68yo male with severe intellectual disability and chronic lance/chronic PEG tube feedings who presented with ESBL proteus UTI. Following admission he was initiated on ertapenem IV. Will complete a total of 7 days of such with final dose on 01/17/24. He clinically improved with IV antibiotics. Lance was exchanged during the vis it. Discharge exam - gen - sitting in chair, dysmorphic in appearance, NAD, pointing at items in the room head - microcephalic with large ears mouth - MMM heart - RRR, s1 s2, no murmur lungs - CTA b/l abd - soft NT ND BS+; no HSM; PEG tube site clean ext - no edema, pulses 2+ b/l neuro - nonverbal If recurrent UTI pattern continues consider CT a/p to rule out urinary tract pathology although biggest UTI risk factor right now is chronic lance. Can Ball MD Coding Level of Care Code 31319 INP/OBS DISCH >30 MIN Diagnoses Infection due to extended spectrum beta lactamase (ESBL) producing Proteus mirabilis A49.8; Z16.12 Complication of Lance catheter T83.9XXA Encounter type: initial encounter Intellectual disability F79 Myelodysplasia (myelodysplastic syndrome) D46.9 Manic-depressive disorder F31.9 Seizure disorder G40.909 Uses feeding tube Z97.8
[2024-01-16] MEDS: FUROSEMIDE 20 MG TAB PO ONE (13:19)
== END 2024-01-16 14:29 | disposition home or self-care (01) | DRG 700 ==
LOC: ED 19:13 → 3E 22:28 → SUATTDRO 22:28 → 3E 23:05

== ENCOUNTER 2024-02-12 10:45 | Observation (INO) ==
[2024-02-12 11:50] LABS: Basophils # (auto) 0.04 K/uL (0.00-0.20); Basophils % (auto) 0.5 %; Eosinophils # (auto) 0.01 K/uL (0.00-0.50); Eosinophils % (auto) 0.1 %; Hematocrit (blood only) 38.7 % (42.0-52.0); Hemoglobin 12.5 g/dl (14.0-18.0); Immature Granulocytes # (auto) 0.04 K/uL (0.01-0.20); Immature Granulocytes % (auto) 0.5 %; Lymphocytes # (auto) 0.56 K/uL (1.20-3.40); Lymphocytes % (auto) 6.7 %; Mean Corpuscular Hemoglobin 31.3 pg (25.0-34.0); Mean Corpuscular Hgb Conc 32.3 g/dL (32.0-36.0); Monocytes # (auto) 0.93 K/uL (0.11-0.59); Neutrophils # (auto) 6.84 K/uL (1.40-6.50); Neutrophils % (auto) 81.2 %; Platelet Count 142 K/uL (130-400); RDW Coefficient of Variation 14.2 % (11.5-14.5); Red Blood Count 3.99 M/uL (4.70-6.10); White Blood Count 8.42 K/ul (4.8-10.8)
--- NOTE | 2024-02-12 12:00 | Emergency Department Note ---
Impression & Plan Urinary tract infection, Chronic indwelling Hendrix catheter ED Provider Note ED Provider Note NAME: TARA MAN AGE:68 SEX: Male : 1955 ARRIVES VIA: Private vehicle INFORMANT: Staff ED PROVIDER(s): Anat Stevenson DO CHIEF COMPLAINT: Urine infection, called by urology HPI: This is a 68-year-old male presents emergency department with staff after being contacted by urology and instructed to come to the ER due to an abnormal outpatient urine culture that was obtained on February 08. Patient with history of indwelling Hendrix catheter and has had prior urinary tract infections. Hendrix catheter initially placed due to urinary retention. Patient with solitary kidney additionally. Patient with microcephaly and intellectual disability and cannot provide additional history. No recent fevers. Staff did note decreased urine output. He is otherwise tolerating tube feeds and free water without difficulty. He does not take anything by mouth. Staff states he seems to be reaching towards his groin which is not a normal mannerism for him. They state of time it appears as though he is uncomfortable or in pain with this mannerism. They also note he had difficulty sleeping last night. PAST MEDICAL HISTORY:See Below PAST SURGICAL HISTORY:See Below FAMILY HISTORY:See Below SOCIAL HISTORY:See Below HOME MEDICATIONS:See Below ALLERGIES:See Below VITALS:See Below PHYSICAL EXAMINATION: GENERAL: alert, well nourished, no distress, non-toxic EYE EXAM: normal conjunctiva, PERRL and EOM's grossly intact OROPHARYNX: no exudate, no erythema, lips, buccal mucosa, and tongue normal and mucous membranes are moist NECK: supple, no nuchal rigidity, no adenopathy, non-tender LUNGS: Clear to auscultation. Normal chest wall mechanics, no w/r/r HEART: no murmurs, S1 normal and S2 normal ABDOMEN: abdomen soft, non-tender, normo-active bowel sounds, no masses, no rebound or guarding. G-tube noted, no erythema at the skin site, no bleeding or discharge. SKIN: no rashes, petechiae, orbruising UPPER EXTREMITIES: upper extremities are grossly normal. FROM, nml pulses b/l. LOWER EXTREMITIES: No pitting edema. FROM, nml pulses b/l. NEURO EXAM: Normal sensorium, cranial nerves II-XII grossly intact, normal speech, no facial droop,nogross weakness of arms, no gross weakness of legs. Gross sensation intact. No ataxia. Vital Signs: reviewed and remarkable Differential Diagnosis: UTI, MIKAL, pyelonephritis, bacteremia/sepsis, dehydration, constipation, medication ADR, as well as others were considered MEDICAL DECISION MAKING: This is a 68-year-old male presents emergency department after being contacted by the urology office due to concern for urinary tract infection from urine culture taken from patient's Hendrix bag on Monday in the office. There was some difficulty obtaining these culture results, and Suni Lynn NP with urology was finally able to obtain this for us. Staff here provides history as patient is nonverbal due to intellectual disability and microcephaly. Labs drawn and sent, IV established, once a room was available he was monitored on telemetry. After discussion with ED pharmacist Shellie, and review of current as well as prior cultures, patient started on IV Zosyn. No evidence of MIKAL. Vital signs stable throughout. Case discussed with the hospitalist team for additional evaluation and management due to concern for IV antibiotics needed for complicated urinary tract infection in a patient with solitary kidney and indwelling Hendrix catheter. Consultation(s): 1402: Discussed with Dr. Colindres, [place] hospitalist for additional evaluation and mgmt. ER Treatment Provided: See below Diagnostics Interpreted By Me: -Cardiac Monitoring: An order was placed for continuous cardiac monitoring. The monitor shows a rate of 80 with normal sinus rhythm. -Laboratory studies: As stated above and show below. Triage Nursing Note Reviewed Prior/Outside Records Reviewed Past Med/Surg History Problem List (Updated 02/12/24 @ 15:32 by Can Colindres MD) Chronic indwelling Hendrix catheter (Acute) Urinary tract infection (Acute) Urinary retention Wound of left foot Open toe wound Congestive heart failure (Acute) Chronic rhinitis Constipation Anemia (Chronic) Thrombocytopenia (Chronic) Urinary incontinence (Acute) Gingival and periodontal disease (Acute) Gait disturbance (Acute) Esophageal dyskinesia (Acute) Edema (Acute) Absent kidney, acquired (Acute) Weight gain Bilateral lower extremity edema Cough Skin irritation Oliguria Cerumen impaction Medicare annual wellness visit, initial Dysphagia Gout Medical History Hypernatremia Hypokalemia Aspiration pneumonitis Acute diastolic CHF (congestive heart failure) Chronic rhinitis Seizure disorder (03/27/12) Esophageal dyskinesia Intellectual disability Uses feeding tube Surgical History History of craniotomy History of colonoscopy History of hernia repair History of esophagogastroduodenoscopy (EGD) History of cholecystectomy Family History Sister Microcephaly Intellectual disability Myelodysplasia (myelodysplastic syndrome) Father Cancer Myocardial infarction Other Family history non-contributory Denies family history of Ovarian cancer Prostate cancer Breast cancer Colorectal cancer Social History Smoking Status: Never smoker Second Hand Exposure: No; Do You Dip or Chew Tobacco: No; Hx Alcohol Use: No Hx Substance Use: No Preferred Language: Malawian Communication Ability: Effective Visual Impairment: No Limitations Hearing Ability: Normal Case Maker Required: No Beliefs That Will Affect Care: None marital status: Single Current Living Situation: Personal Care Facility Current Living Situation Comment: assisted current occupational status: disabled Other Information That Helps Us Care for You: No Feels Safe at Home: Yes Safety Concerns: Feels Safe At This Time Childhood Exposure to Second-Hand Smoke: No Dental Care, Regularly: Yes Physical Activity Frequency: 1-2 Times per Week Seatbelt Use: always Sunscreen Use: No Assistive Devices: Nebulizer Allergies Allergies Allergy/AdvReac Type Severity Reaction Status Date / Time glycopyrrolate Allergy Severe TONGUE Verified 02/12/24 14:28 SWELLING trazodone Allergy Severe SWELLING Verified 02/12/24 14:28 OF TONGUE & EXTREMITIES, DIFFICULTY BREATHING. lithium Allergy Intermediate EXCESSIVE Verified 02/12/24 14:28 DRINKING, DECREASED APPETITE & VERBALIZATIONS risperidone Allergy Intermediate POSSIBLE Verified 02/12/24 14:28 NEUROLEPTIC MALIGNANCY SYNDROME amoxicillin [From Augmentin] Allergy Mild Rash Verified 02/12/24 14:28 clavulanic acid Allergy Mild Rash Verified 02/12/24 14:28 [From Augmentin] Macrolide Antibiotics Allergy Mild RASH Verified 02/12/24 14:28 belladonna alkaloids Allergy Unknown Unknown Verified 02/12/24 14:28 clarithromycin Allergy Unknown Unknown Verified 02/12/24 14:28 metoclopramide Allergy Unknown PT TAKES Verified 02/12/24 14:28 AT HOME Phenylpiperazine Allergy Unknown Unknown - Unverified 02/12/24 14:28 Antidepressant On med list from [facility] aripiprazole AdvReac Intermediate HYPERACTIVITY Verified 02/12/24 14:28 & INSOMNIA Anticholinergics Allergy Unknown Unknown - Uncoded 02/12/24 14:47 On med list from [facility] Home Meds Home Medications Medication Instructions Recorded Confirmed clozapine 25 mg tablet (Clozaril) 25 mg feeding tube HS 10/27/22 02/12/24 clozapine 50 mg tablet 50 mg feeding tube QAM 10/27/22 02/12/24 ondansetron 4 mg disintegrating 4 mg feeding tube Q4H PRN Nausea 09/01/23 02/12/24 tablet And Vomiting allopurinol 100 mg tablet 100 mg feeding tube BID 01/08/24 02/12/24 clozapine 100 mg tablet 100 mg feeding tube HS 01/08/24 02/12/24 benzonatate 100 mg capsule 100 mg TID PRN cough 01/11/24 02/12/24 furosemide 10 mg/mL oral solution 10 mg feeding tube DIRECTED PRN 01/11/24 02/12/24 Weight Gain ipratropium bromide 21 mcg (0.03 2 spray intranasal Q8H PRN 01/11/24 02/12/24 %) nasal spray postnasal drip levalbuterol HCl 1.25 mg/3 mL 1.25 mg inhalation Q4H PRN 01/11/24 02/12/24 solution for nebulization shortness of breath or wheezing or cough loperamide 1 mg/5 mL oral liquid 0 mg feeding tube DIRECTED PRN 01/11/24 02/12/24 Diarrhea loperamide 2 mg capsule 2 mg feeding tube Q4H PRN Loose 01/11/24 02/12/24 Stool nystatin 100,000 unit/gram topical 1 applic topical BID PEG TUBE SITE 01/11/24 02/12/24 powder (Nystop) NEEDED pediatric multivitamin 1 tab feeding tube DAILY 01/11/24 02/12/24 polyethylene glycol 3350 17 17 g feeding tube Q OTHER DAY 01/11/24 02/12/24 gram/dose oral powder (Miralax) constipation Boost Energy Drink 1 can feeding tube TID 02/12/24 02/12/24 acetaminophen 160 mg/5 mL (5 mL) 640 mg feeding tube Q4 PRN 02/12/24 02/12/24 oral suspension fever/headache/minor ache/pain clotrimazole 1 % topical cream 1 applic topical QID PRN Rash 02/12/24 02/12/24 guaifenesin 100 mg/5 mL oral 100 mg feeding tube TID 02/12/24 02/12/24 liquid (Siltussin SA) mupirocin 2 % topical ointment 1 applic topical BID PRN skin 02/12/24 02/12/24 abrasions zinc oxide 13 % topical cream 1 applic topical BID Bilateral 02/12/24 02/12/24 Buttock skin issue Previous Rx's Medication Instructions Recorded ostomy supplies (Adapt Stoma #28.3 grams 11/12/19 Powder topical) nebulizer accessories #1 ea 07/30/20 sheep skin heel protectors #1 ea 11/11/21 diaper,brief,adult,disposable #240 ea 01/11/22 aluminum-mag hydroxide-simethicone 30 ml feeding tube BID PRN upset 10/26/23 200 mg-200 mg-20 mg/5 mL oral susp stomach/vomiting #3,000 mL (Antacid Liquid) bisacodyl 10 mg rectal suppository 10 mg [place] DAILY PRN Constipation 10/26/23 #12 ea cetirizine 10 mg disintegrating 10 mg feeding tube DAILY #90 tabs 10/26/23 tablet cyanocobalamin (vitamin B-12) 1,000 mcg feeding tube DAILY #30 10/26/23 1,000 mcg tablet (Vitamin B-12) tabs docusate sodium 50 mg/5 mL oral 100 mg (10 mL) feeding tube DAILY 10/26/23 liquid #1,000 mL chlorhexidine gluconate 0.12 % 15 ml buccal BID #473 mL 12/01/23 mouthwash (Peridex) Saccharomyces boulardii 250 mg 250 mg feeding tube BID #60 caps 12/04/23 capsule diaper,brief,adult,disposable #216 ea 12/06/23 (Wings Choice Plus Adult Briefs) compress.stocking,knee,reg,med #2 ea 12/18/23 fluticasone propionate 50 2 spray intranasal DAILY #16 grams 12/27/23 mcg/actuation nasal spray,suspension fluocinonide-emollient 0.05 % 1 applic topical BID #60 grams 02/09/24 topical cream Results & Data (ED) Vital Signs Vital Signs - 24 hr 02/12/24 10:48 02/12/24 12:13 Temperature 36.5 C Temperature Source Temporal Artery Scan Pulse Rate 79 Pulse Rate [Right Finger] 72 Pulse Strength [Right Finger] Normal Respiratory Rate 18 19 Respiratory Effort / Characteristics Non-Labored Spontaneous Respiratory Depth Normal Respiratory Pattern Regular Blood Pressure 130/81 Blood Pressure [Left Arm] 147/75 H Blood Pressure Mean 97 Blood Pressure Mean [Left Arm] 99 Pulse Oximetry 97 97 Oxygen Delivery Method Room Air Room Air Sepsis Recent Fever Within 48 Hours No Sepsis New/Unexplained Change in Mental Status N/A Sepsis Action Taken by Nursing No Action Required Laboratory Data 02/12/24 11:25 02/12/24 11:25 Lab Results 02/12/24 Range/Units 11:25 WBC 8.42 (4.8-10.8) K/ul RBC 3.99 L (4.70-6.10) M/uL Hgb 12.5 L (14.0-18.0) g/dl Hct 38.7 L (42.0-52.0) % MCV 97.0 (80.0-100.0) fL MCH 31.3 (25.0-34.0) pg MCHC 32.3 (32.0-36.0) g/dL RDW Std Deviation 51.0 H (36.4-46.3) fL RDW Coeff of Isaac 14.2 (11.5-14.5) % Plt Count 142 (130-400) K/uL MPV 13.0 H (9.4-12.4) fL Immature Gran % (Auto) 0.5 % Neut % (Auto) 81.2 % Lymph % (Auto) 6.7 % [place] % (Auto) 11.0 % Eos % (Auto) 0.1 % Baso % (Auto) 0.5 % Neut # (Auto) 6.84 H (1.40-6.50) K/uL Lymph # (Auto) 0.56 L (1.20-3.40) K/uL Independence # (Auto) 0.93 H (0.11-0.59) K/uL Eos # (Auto) 0.01 (0.00-0.50) K/uL Baso # (Auto) 0.04 (0.00-0.20) K/uL Immature Gran # (Auto) 0.04 (0.01-0.20) K/uL Sodium 140 (136-145) mmol/L Potassium 3.8 (3.5-5.1) mmol/L Chloride 105 (98-107) mmol/L Carbon Dioxide 27 (21-32) mmol/L Anion Gap 8 (3-11) BUN 37 H (6-23) mg/dl Creatinine 1.27 (0.6-1.4) mg/dl Est Cr Clr Drug Dosing Not Reportable Est GFR ( Amer) 66.8 ml/min Est GFR (Non-Af Amer) 57.7 ml/min BUN/Creatinine Ratio 29.1 H (10-20) Glucose 113 H (70-99(Fasting)) mg/dl Calcium 10.0 (8.6-10.3) mg/dl Total Bilirubin 0.4 (0.2-1.0) mg/dl AST 19 (13-39) U/L ALT 22 (7-52) U/L Alkaline Phosphatase 151 H (34-104) U/L Total Protein 8.1 (6.0-8.3) gm/dl Albumin 3.9 (3.4-5.0) gm/dl Globulin 4.2 H (2.5-4.0) gm/dl Albumin/Globulin Ratio 0.9 (0.9-2) Lipase 26 (11-82) U/L Administered Medications Piperacillin Sod/Tazobactam (Sod 4.5 gm/ Dextrose) 100 mls @ 25 mls/hr IV Q8H [facility]; Protocol Stop: 02/22/24 19:59 Last Admin: 02/12/24 19:24 Dose: 25 mls/hr Documented By: GND Nutritional Formula (Nutren Liqd 2.0 1,000 Ml Bag) 1,000 ml PEG .See Protocol JIE; Protocol Stop: 03/13/24 16:44 Last Admin: 02/12/24 19:35 Dose: 1,000 ml Documented By: GND Discontinued Medications Piperacillin Sod/Tazobactam Sod (Zosyn) 4.5 gm in 100 mls @ 200 mls/hr IV NOW ONE Stop: 02/12/24 14:32 Last Infusion: 02/12/24 15:26 Dose: Infused Documented By: Admin: 02/12/24 14:47 Dose: 200 mls/hr Documented By: SHANTE Discharge Plan Visit Data Chief Complaint: Urinary Symptoms Stated Complaint: URINARY SYMPTOMS, REF BY DOC ED Provider: Anat Stevenson Discharge Problem: Urinary tract infection, Chronic indwelling Hendrix catheter Patient Disposition: Admitted As Inpatient Discharge Instructions Interventions: ED Discharge Assessment Last Done: 02/12/24 16:06
[2024-02-12 12:06] LABS: Alanine Aminotransferase 22 U/L (7-52); Albumin Globulin Ratio 0.9 (0.9-2); Albumin Level 3.9 gm/dl (3.4-5.0); Alkaline Phosphatase 151 U/L (34-104); Anion Gap 8 (3-11); Aspartate Aminotransferase 19 U/L (13-39); BUN Creatinine Ratio 29.1 (10-20); Bilirubin,Total 0.4 mg/dl (0.2-1.0); Blood Urea Nitrogen 37 mg/dl (6-23); Carbon Dioxide 27 mmol/L (21-32); Chloride 105 mmol/L (98-107); Est GFR (African American) 66.8 ml/min; Est GFR (Non-African American) 57.7 ml/min; Globulin 4.2 gm/dl (2.5-4.0); Glucose 113 mg/dl (70-99(Fasting)); Lipase 26 U/L (11-82); Potassium 3.8 mmol/L (3.5-5.1); Sodium 140 mmol/L (136-145); Total Protein 8.1 gm/dl (6.0-8.3)
[2024-02-12 14:17] LABS: Appearance Urine Turbid (Clear); Bacteria Urine Automated 4+ (None Seen); Bilirubin Urine Negative (Negative); Blood Urine Trace (Negative); Color Urine Yellow; Epithelial Cell Urine Auto 0-2 /hpf (0-2); Glucose Urine UA Negative (Negative); Ketones Urine Negative (Negative); Leukocyte Esterase Urine 3+ (Negative); Nitrite Urine Negative (Negative); Protein Urine 1+ (Negative); RBC Urine Automated 0-2 /hpf (0-2); Specific Gravity Urine 1.011 (1.000-1.030); Urobilinogen Urine Negative (Negative); WBC Urine Automated >50 /hpf (0-5); pH Urine >= 9.0 (4.5-7.5)
--- NOTE | 2024-02-12 14:36 | History & Physical Report ---
Date of Service February 12, 2024 Assessment & Plan (1) Urinary tract infection: Plan: February 08 - outpatient culture with multi-resistant Enterococcus faecalis, proteus mirabilis and pseudomonas aeruginosa (see H&P scanned sheet in note) Sensitive to IV Zosyn Follow up repeat cultures (2) Chronic indwelling Lance catheter: Plan: Recurrent episodes of urine retention Do not remove lance catheter - follows with urology (3) Urinary retention: Plan: Noted in the ER. Lance catheter replaced in the ER, now draining well (4) Uses feeding tube: Plan: Consult dietary to continue his usual tube feeds (5) Intellectual disability: Plan: Seizure disorder/intellectual disability/manic depressive disorder- Continue meds through the PEG tube: clozapine Plan VTE Prophylaxis - Lovenox 40mg SQ daily Diet - NPO, dietary consulted for PEG feeds Disposition - observation to med/surg Admission and Anticipated Discharge Date Admission Date: February 12, 2024 History of Present Illness Chief Complaint: UTI Primary Care Provider: YOON Vaughn Marty Simms is a 68 year old male who presents to the ER with concerns for a urinary tract infection. Urine culture from urology office growing multi- resistant Enterococcus faecalis, proteus mirabilis and pseudomonas aeruginosa. Patient with microcephaly and intellectual disability and cannot provide any history. He lives at a residential home. Care worker at bedside reports reaching towards his groin which is not normal for him and appears more uncomfortable. No fever or chills. Difficulty sleeping last night. No gross change in his urine. Catheter was noted to be blocked in the ER and was changed. Allergies Allergy/AdvReac Type Severity Reaction Status Date / Time glycopyrrolate Allergy Severe TONGUE Verified 02/12/24 14:28 SWELLING trazodone Allergy Severe SWELLING Verified 02/12/24 14:28 OF TONGUE & EXTREMITIES, DIFFICULTY BREATHING. lithium Allergy Intermediate EXCESSIVE Verified 02/12/24 14:28 DRINKING, DECREASED APPETITE & VERBALIZATIONS risperidone Allergy Intermediate POSSIBLE Verified 02/12/24 14:28 NEUROLEPTIC MALIGNANCY SYNDROME amoxicillin [From Augmentin] Allergy Mild Rash Verified 02/12/24 14:28 clavulanic acid Allergy Mild Rash Verified 02/12/24 14:28 [From Augmentin] Macrolide Antibiotics Allergy Mild RASH Verified 02/12/24 14:28 belladonna alkaloids Allergy Unknown Unknown Verified 02/12/24 14:28 clarithromycin Allergy Unknown Unknown Verified 02/12/24 14:28 metoclopramide Allergy Unknown PT TAKES Verified 02/12/24 14:28 AT HOME Phenylpiperazine Allergy Unknown Unknown - Unverified 02/12/24 14:28 Antidepressant On med list from [facility] [address] aripiprazole AdvReac Intermediate HYPERACTIVITY Verified 02/12/24 14:28 & INSOMNIA Anticholinergics Allergy Unknown Unknown - Uncoded 02/12/24 14:47 On med list from [facility] [address] Home Medications Medication Instructions Recorded Confirmed Type ostomy supplies (Adapt Stoma #28.3 grams 11/12/19 01/18/24 Rx Powder topical) nebulizer accessories #1 ea 07/30/20 01/18/24 Rx sheep skin heel protectors #1 ea 11/11/21 01/18/24 Rx diaper,brief,adult,disposable #240 ea 01/11/22 01/18/24 Rx clozapine 25 mg tablet (Clozaril) 25 mg feeding tube HS 10/27/22 02/12/24 History clozapine 50 mg tablet 50 mg feeding tube QAM 10/27/22 02/12/24 History ondansetron 4 mg disintegrating 4 mg feeding tube Q4H PRN Nausea 09/01/23 02/12/24 History tablet And Vomiting aluminum-mag hydroxide-simethicone 30 ml feeding tube BID PRN upset 10/26/23 02/12/24 Rx 200 mg-200 mg-20 mg/5 mL oral susp stomach/vomiting #3,000 mL (Antacid Liquid) bisacodyl 10 mg rectal suppository 10 mg AL DAILY PRN Constipation 10/26/23 02/12/24 Rx #12 ea cetirizine 10 mg disintegrating 10 mg feeding tube DAILY #90 tabs 10/26/23 02/12/24 Rx tablet cyanocobalamin (vitamin B-12) 1,000 mcg feeding tube DAILY #30 10/26/23 02/12/24 Rx 1,000 mcg tablet (Vitamin B-12) tabs docusate sodium 50 mg/5 mL oral 100 mg (10 mL) feeding tube DAILY 10/26/23 02/12/24 Rx liquid #1,000 mL chlorhexidine gluconate 0.12 % 15 ml buccal BID #473 mL 12/01/23 02/12/24 Rx mouthwash (Peridex) Saccharomyces boulardii 250 mg 250 mg feeding tube BID #60 caps 12/04/23 02/12/24 Rx capsule diaper,brief,adult,disposable #216 ea 12/06/23 01/18/24 Rx (Wings Choice Plus Adult Briefs) compress.stocking,knee,reg,med #2 ea 12/18/23 01/18/24 Rx fluticasone propionate 50 2 spray intranasal DAILY #16 grams 12/27/23 02/12/24 Rx mcg/actuation nasal spray,suspension allopurinol 100 mg tablet 100 mg feeding tube BID 01/08/24 02/12/24 History clozapine 100 mg tablet 100 mg feeding tube HS 01/08/24 02/12/24 History benzonatate 100 mg capsule 100 mg TID PRN cough 01/11/24 02/12/24 History furosemide 10 mg/mL oral solution 10 mg feeding tube DIRECTED PRN 01/11/24 02/12/24 History Weight Gain ipratropium bromide 21 mcg (0.03 2 spray intranasal Q8H PRN 01/11/24 02/12/24 History %) nasal spray postnasal drip levalbuterol HCl 1.25 mg/3 mL 1.25 mg inhalation Q4H PRN 01/11/24 02/12/24 History solution for nebulization shortness of breath or wheezing or cough loperamide 1 mg/5 mL oral liquid 0 mg feeding tube DIRECTED PRN 01/11/24 02/12/24 History Diarrhea loperamide 2 mg capsule 2 mg feeding tube Q4H PRN Loose 01/11/24 02/12/24 History Stool nystatin 100,000 unit/gram topical 1 applic topical BID PEG TUBE SITE 01/11/24 02/12/24 History powder (Nystop) NEEDED pediatric multivitamin 1 tab feeding tube DAILY 01/11/24 02/12/24 History polyethylene glycol 3350 17 17 g feeding tube Q OTHER DAY 01/11/24 02/12/24 History gram/dose oral powder (Miralax) constipation fluocinonide-emollient 0.05 % 1 applic topical BID #60 grams 02/09/24 02/12/24 Rx topical cream Boost Energy Drink 1 can feeding tube TID 02/12/24 02/12/24 History acetaminophen 160 mg/5 mL (5 mL) 640 mg feeding tube Q4 PRN 02/12/24 02/12/24 History oral suspension fever/headache/minor ache/pain clotrimazole 1 % topical cream 1 applic topical QID PRN Rash 02/12/24 02/12/24 History guaifenesin 100 mg/5 mL oral 100 mg feeding tube TID 02/12/24 02/12/24 History liquid (Siltussin SA) mupirocin 2 % topical ointment 1 applic topical BID PRN skin 02/12/24 02/12/24 History abrasions zinc oxide 13 % topical cream 1 applic topical BID Bilateral 02/12/24 02/12/24 History Buttock skin issue Past Med/Surg History Problem List (Updated 02/13/24 @ 06:49 by Can Colindres MD) Chronic indwelling Lance catheter (Acute) Urinary tract infection (Acute) Urinary retention Wound of left foot Open toe wound Congestive heart failure (Acute) Chronic rhinitis Constipation Anemia (Chronic) Thrombocytopenia (Chronic) Urinary incontinence (Acute) Gingival and periodontal disease (Acute) Gait disturbance (Acute) Esophageal dyskinesia (Acute) Edema (Acute) Absent kidney, acquired (Acute) Weight gain Bilateral lower extremity edema Cough Skin irritation Oliguria Cerumen impaction Dysphagia Gout Medical History Hypernatremia Hypokalemia Aspiration pneumonitis Acute diastolic CHF (congestive heart failure) Chronic rhinitis Seizure disorder (03/27/12) Esophageal dyskinesia Intellectual disability Uses feeding tube Surgical History History of craniotomy History of colonoscopy History of hernia repair History of esophagogastroduodenoscopy (EGD) History of cholecystectomy Family History Sister Microcephaly Intellectual disability Myelodysplasia (myelodysplastic syndrome) Father Cancer Myocardial infarction Other Family history non-contributory Denies family history of Ovarian cancer Prostate cancer Breast cancer Colorectal cancer Social History Smoking Status: Never smoker Second Hand Exposure: No; Do You Dip or Chew Tobacco: No; Hx Alcohol Use: No Hx Substance Use: No Preferred Language: Lithuanian Communication Ability: Effective Visual Impairment: No Limitations Hearing Ability: Normal Catering Sous Chef Required: No Beliefs That Will Affect Care: None marital status: Single Current Living Situation: Personal Care Facility Current Living Situation Comment: shelter current occupational status: disabled Other Information That Helps Us Care for You: No Feels Safe at Home: Yes Safety Concerns: Feels Safe At This Time Childhood Exposure to Second-Hand Smoke: No Dental Care, Regularly: Yes Physical Activity Frequency: 1-2 Times per Week Seatbelt Use: always Sunscreen Use: No Assistive Devices: Nebulizer Review of Systems 2 Review of Systems: Unobtainable due to cognitive status Physical Exam 2 Constitutional: + not well developed (microcephaly), + n ot well nourished and no acute distress Eyes: PERRL, conjunctivae normal, anicteric sclerae Respiratory: normal respiratory effort, lungs clear to auscultation Cardiovascular: RRR, no murmur, no edema Gastrointestinal (Abdomen): normal bowel sounds, soft, nontender, no hepatosplenomegaly Skin: no rashes, warm and dry Neurologic: moves all extremities (follows one step commands) and awake; not confused Psychiatric: Orientation: alert; + not oriented x 3 (not talking) Results & Data Results & Data Vital Signs (Past 12 Hours) Vital Signs Temp Pulse Pulse Resp BP BP Pulse Ox 02/12/24 12:13 72 19 147/75 H 97 02/12/24 10:48 36.5 C 79 18 130/81 97 O2 Del Method 02/12/24 12:13 Room Air 02/12/24 10:48 Room Air Laboratory Results Abnormal lab results 02/12/24 02/12/24 Range/Units 11:25 Unknown RBC 3.99 L (4.70-6.10) M/uL Hgb 12.5 L (14.0-18.0) g/dl Hct 38.7 L (42.0-52.0) % RDW Std Deviation 51.0 H (36.4-46.3) fL MPV 13.0 H (9.4-12.4) fL Neut # (Auto) 6.84 H (1.40-6.50) K/uL Lymph # (Auto) 0.56 L (1.20-3.40) K/uL Crowley # (Auto) 0.93 H (0.11-0.59) K/uL BUN 37 H (6-23) mg/dl BUN/Creatinine Ratio 29.1 H (10-20) Glucose 113 H (70-99(Fasting)) mg/dl Alkaline Phosphatase 151 H (34-104) U/L Globulin 4.2 H (2.5-4.0) gm/dl Urine Appearance Turbid A (Clear) Urine pH >= 9.0 H (4.5-7.5) Urine Protein 1+ H (Negative) Urine Blood Trace H (Negative) Ur Leukocyte Esterase 3+ H (Negative) Urine WBC (Auto) >50 H (0-5) /hpf U Hyaline Cast (Auto) 6-10 H (0-2) /lpf Urine Bacteria (Auto) 4+ H (None Seen) Diagnostic Findings None Medications Administered ER Medications Given: Zosyn 4.5g IV Code Status & VTE Plan Code Status DNR/DNI VTE Prophylaxis Plan VTE Prophylaxis will be ordered: Yes PG Care Time/CCT Total # of Minutes Spent Total Time Spent with Patient: Total time spent is greater than 50% in coordination of care (as documented) at patient's floor/unit and/or counseling patient: Coding Level of Care Code 70533 INT INP/OBS CARE 2/55MIN Diagnoses Urinary tract infection N39.0 Chronic indwelling Lance catheter Z97.8 Urinary retention R33.9 Uses feeding tube Z97.8 Intellectual disability F79
[2024-02-12] MEDS: PIPERACILLIN/TAZOBACTAM 4.5 GM/100 ML BAG IV ONE (14:47)
[2024-02-12] MEDS ORDERED: [UNRECOGNIZED DRUG - OTHER] SCH (16:33)
[2024-02-12] MEDS ORDERED: DIAPER BRIEF ADULT DISPOSABLE SCH (16:33)
[2024-02-12] MEDS ORDERED: BENZONATATE 100 MG CAPSULE PO PRN (16:33)
[2024-02-12] MEDS ORDERED: OSTOMY SUPPLIES SCH (16:33)
[2024-02-12] MEDS ORDERED: ACETAMINOPHEN SUSP 160 MG/5 ML UDC GT PRN (16:33)
[2024-02-12] MEDS ORDERED: bisacodyL 10 MG SUPP PR PRN (16:33)
[2024-02-12] MEDS ORDERED: ALUMINUM/MAGNESIUM/SIMETH (MAALOX MAX) 30 ML UDC PEG PRN (16:33)
[2024-02-12] MEDS ORDERED: LEVALBUTEROL 1.25 MG/3 ML NEB INH PRN (16:33)
[2024-02-12] MEDS ORDERED: ONDANSETRON 4 MG OD TAB PEG PRN (16:33)
[2024-02-12] MEDS ORDERED: LOPERAMIDE LIQUID 120 ML BOTTLE PO PRN (17:33)
[2024-02-12] MEDS: PIPERACILLIN/TAZOBACTAM 4.5 GM in DEXTROSE 5% MINI-B 100 ML IV SCH (19:24)
[2024-02-12] MEDS: NUTREN LIQD 2.0 1,000 ML BAG PEG SCH (19:35)
[2024-02-12] MEDS: BETAMETHASONE DIP AUG (DIPROLENE) 0.05% CR 15 GM TUBE EXT SCH (20:38)
[2024-02-12] MEDS: CHLORHEXIDINE GLUCONATE 0.12% 480 ML MT SCH (20:39)
[2024-02-12] MEDS: NYSTATIN POWDER 15GM BTL EXT SCH (20:39)
[2024-02-12] MEDS: SACCHAROMYCES BOULARDII 250 MG CAP PO SCH (20:40)
[2024-02-12] MEDS: cloZAPine 25 MG TAB PO SCH (20:40)
[2024-02-12] MEDS: cloZAPine 100 MG TAB PO SCH (20:41)
[2024-02-12] MEDS: guaiFENesin SUGAR FREE 100 MG/5 ML UDC GT SCH (20:41)
[2024-02-12] MEDS: TUBE FEEDING WATER FLUSH PEG SCH (20:41)
[2024-02-12] MEDS: allopurinoL 100 MG TAB PEG SCH (20:42)
[2024-02-12] MEDS ORDERED: [UNRECOGNIZED DRUG - OTHER] feeding tube SCH (21:00)
[2024-02-13 07:20] LABS: Basophils # (auto) 0.03 K/uL (0.00-0.20); Basophils % (auto) 0.6 %; Eosinophils # (auto) 0.15 K/uL (0.00-0.50); Eosinophils % (auto) 2.8 %; Hematocrit (blood only) 33.2 % (42.0-52.0); Immature Granulocytes # (auto) 0.02 K/uL (0.01-0.20); Immature Granulocytes % (auto) 0.4 %; Lymphocytes # (auto) 1.55 K/uL (1.20-3.40); Mean Corpuscular Hemoglobin 31.5 pg (25.0-34.0); Mean Corpuscular Hgb Conc 33.1 g/dL (32.0-36.0); Mean Corpuscular Volume 95.1 fL (80.0-100.0); Mean Platelet Volume 12.5 fL (9.4-12.4); Monocytes # (auto) 0.66 K/uL (0.11-0.59); Monocytes % (auto) 12.4 %; Neutrophils # (auto) 2.93 K/uL (1.40-6.50); Neutrophils % (auto) 54.8 %; Platelet Count 127 K/uL (130-400); RDW Coefficient of Variation 14.3 % (11.5-14.5); RDW Standard Deviation 49.1 fL (36.4-46.3); Red Blood Count 3.49 M/uL (4.70-6.10); White Blood Count 5.34 K/ul (4.8-10.8)
[2024-02-13 07:36] LABS: Albumin Globulin Ratio 0.9 (0.9-2); Albumin Level 3.3 gm/dl (3.4-5.0); BUN Creatinine Ratio 26.3 (10-20); Bilirubin,Total 0.4 mg/dl (0.2-1.0); Calcium 9.5 mg/dl (8.6-10.3); Creatinine Clr Calc Pharmacy 55.9 ml/min; Est GFR (African American) 73.1 ml/min; Globulin 3.8 gm/dl (2.5-4.0); Magnesium 2.2 mg/dl (1.7-2.4); Phosphorus 2.9 mg/dl (2.5-4.9); Total Protein 7.1 gm/dl (6.0-8.3)
[2024-02-13] MEDS ORDERED: HEPARIN SOD 5,000 UNIT/0.5 ML VIAL SQ SCH (09:00)
[2024-02-13] MEDS: MULTIVITAMIN CHEWABLE TAB PO SCH (09:02)
[2024-02-13] MEDS: DOCUSATE SODIUM SYRUP 100 MG/10 ML UDC PEG SCH (09:02)
[2024-02-13] MEDS: CETIRIZINE HCL 10 MG TABLET PO SCH (09:02)
[2024-02-13] MEDS: CYANOCOBALAMIN (B-12) 500 MCG TABLET PEG SCH (09:02)
[2024-02-13] MEDS: cloZAPine 25 MG TAB PO SCH (09:03)
[2024-02-13] MEDS: FLUTICASONE PROPIONATE NA SPR 16 GM BTL NAE SCH (09:04)
[2024-02-13] MEDS: ENOXAPARIN INJ 40 MG/0.4 ML SYR SQ SCH (10:21)
--- NOTE | 2024-02-13 12:57 | Infectious Disease Consult ---
Date of Consultation February 13, 2024 Assessment & Plan (1) Urinary tract infection: (2) Chronic indwelling Lance catheter: (3) Urinary retention: (4) Microcephaly: Plan 68yo M, nonverbal, with h/o MDS, microcephaly, intellectual disability, manic depressive d/o, seizure d/o, urinary retention s/p lance in 09/2023 (previous failed void trials, gets lance changed monthly), recent admission 01/10-01/15 with resistant Proteus in UCX s/p ertapenem (UCX was collected because Lance catheter was poorly draining on 01/07 ED) who presented on 02/11 with c/f a UTI on UCX done at urology office due to malodorous urine. Careworker reported that he had been reaching towards his groin and had appeared more uncomfortable. Outpatient UCx with E faecalis, Proteus mirabilis, and PsA. Here, he has been afebrile. WBC wnl, Cr 1.27. AST/ALT wnl. UA (received 1342) with > 50WBC. UCx with GNR. He has been started on zosyn. ID consulted 02/12. Since patient did appear uncomfortable per careworker, ok to treat for a UTI. Given multiple organisms on outpatient cultures, I would be c/f contaminants v colonization. Unclear if the specimen was obtained before or after lance change at urology office. He has another specimen from ED that was sent, presumably after lance was changed since it wasnt draining (per RN note). Will wait to see growth on these cultures prior to determining abx. For the future, he should not have cultures sent if he doesnt have any symptoms as unnecessary abx increases risk of resistant organisms. Asymptomatic pyuria/bacteriuria is common in chronic urinary catheters and should not be treated. # CAUTI # recent MDR organisms in UCX # h/o MDS # Microcephaly, nonverbal - f/u UCx from 02/11 - continue zosyn - final regimen pending culture results ID will continue to follow. If questions or concerns, contact Infectious Disease Call Center . Danielle Blake MD [facility], Division of Infectious Diseases [facility]: [phone] Consultation Information Consultation was provided via telemedicine using two-way real-time interactive telecommunication between the patient and the telemedicine provider. For the duration of the visit, the provider was performing the assessment from a different facility than the patient. This includesuse of bluetooth stethoscope forauscultationperformed by the telepresenter that the telemedicine provider can hear if described in the physical exam. Industrial [employer]er contact information: Please call [facility] Call Center . (Phone Number For Physician Use Only) After establishing a telemedicine visit, patient was: Patient was verified with two unique identifiers, Patient/authorized rep acknowledged consent and understanding and Gave permission to continue telehealth session Time Spent with Patient: Initial => 75 min History of Present Illness Reason for Consultation: MDR Lance-cath UTI Attending Physician: Mary Albert MD History of Present Illness 68yo M, nonverbal, with h/o MDS, microcephaly, intellectual disability, manic depressive d/o, seizure d/o, urinary retention s/p lance in 09/2023 (previous failed void trials, gets lance changed monthly), recent admission 01/10-01/15 with resistant Proteus in UCX s/p ertapenem (UCX was collected because Lance catheter was poorly draining on 01/07 ED) who presented on 02/11 with c/f a UTI. He had urine cultures done at urology office on 02/08 which grew multiple resistant organisms and was advised to be sent to the ED. Careworker reported that he had been reaching towards his groin which is not normal and had appeared more uncomfortable. No fevers or chills, but has had difficulty sleeping at night. Outpatient UCx with E faecalis, Proteus mirabilis, and PsA. Here, he has been afebrile. WBC wnl, Cr 1.27. AST/ALT wnl. UA (received 1342) with > 50WBC. UCx with GNR. He has been started on zosyn. Lance was changed in the ED. ID consulted 02/12. 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 She informs me that patient had looked uncomfortable and was reaching for his groin x 1 day. At the urology office, the UCx was sent due to malodor from urine. No fevers. Allergies Allergy/AdvReac Type Severity Reaction Status Date / Time glycopyrrolate Allergy Severe TONGUE Verified 02/12/24 14:28 SWELLING trazodone Allergy Severe SWELLING Verified 02/12/24 14:28 OF TONGUE & EXTREMITIES, DIFFICULTY BREATHING. lithium Allergy Intermediate EXCESSIVE Verified 02/12/24 14:28 DRINKING, DECREASED APPETITE & VERBALIZATIONS risperidone Allergy Intermediate POSSIBLE Verified 02/12/24 14:28 NEUROLEPTIC MALIGNANCY SYNDROME amoxicillin [From Augmentin] Allergy Mild Rash Verified 02/12/24 14:28 clavulanic acid Allergy Mild Rash Verified 02/12/24 14:28 [From Augmentin] Macrolide Antibiotics Allergy Mild RASH Verified 02/12/24 14:28 belladonna alkaloids Allergy Unknown Unknown Verified 02/12/24 14:28 clarithromycin Allergy Unknown Unknown Verified 02/12/24 14:28 metoclopramide Allergy Unknown PT TAKES Verified 02/12/24 14:28 AT HOME Phenylpiperazine Allergy Unknown Unknown - Unverified 02/12/24 14:28 Antidepressant On med list from [facility] aripiprazole AdvReac Intermediate HYPERACTIVITY Verified 02/12/24 14:28 & INSOMNIA Anticholinergics Allergy Unknown Unknown - Uncoded 02/12/24 14:47 On med list from [facility] Home Medications Medication Instructions Recorded Confirmed Type ostomy supplies (Adapt Stoma #28.3 grams 11/12/19 01/18/24 Rx Powder topical) nebulizer accessories #1 ea 07/30/20 01/18/24 Rx sheep skin heel protectors #1 ea 11/11/21 01/18/24 Rx diaper,brief,adult,disposable #240 ea 01/11/22 01/18/24 Rx clozapine 25 mg tablet (Clozaril) 25 mg feeding tube HS 10/27/22 02/12/24 History clozapine 50 mg tablet 50 mg feeding tube QAM 10/27/22 02/12/24 History ondansetron 4 mg disintegrating 4 mg feeding tube Q4H PRN Nausea 09/01/23 02/12/24 History tablet And Vomiting aluminum-mag hydroxide-simethicone 30 ml feeding tube BID PRN upset 10/26/23 02/12/24 Rx 200 mg-200 mg-20 mg/5 mL oral susp stomach/vomiting #3,000 mL (Antacid Liquid) bisacodyl 10 mg rectal suppository 10 mg DC DAILY PRN Constipation 10/26/23 02/12/24 Rx #12 ea cetirizine 10 mg disintegrating 10 mg feeding tube DAILY #90 tabs 10/26/23 02/12/24 Rx tablet cyanocobalamin (vitamin B-12) 1,000 mcg feeding tube DAILY #30 10/26/23 02/12/24 Rx 1,000 mcg tablet (Vitamin B-12) tabs docusate sodium 50 mg/5 mL oral 100 mg (10 mL) feeding tube DAILY 10/26/23 02/12/24 Rx liquid #1,000 mL chlorhexidine gluconate 0.12 % 15 ml buccal BID #473 mL 12/01/23 02/12/24 Rx mouthwash (Peridex) Saccharomyces boulardii 250 mg 250 mg feeding tube BID #60 caps 12/04/23 02/12/24 Rx capsule diaper,brief,adult,disposable #216 ea 12/06/23 01/18/24 Rx (Wings Choice Plus Adult Briefs) compress.stocking,knee,reg,med #2 ea 12/18/23 01/18/24 Rx fluticasone propionate 50 2 spray intranasal DAILY #16 grams 12/27/23 02/12/24 Rx mcg/actuation nasal spray,suspension allopurinol 100 mg tablet 100 mg feeding tube BID 01/08/24 02/12/24 History clozapine 100 mg tablet 100 mg feeding tube HS 01/08/24 02/12/24 History benzonatate 100 mg capsule 100 mg TID PRN cough 01/11/24 02/12/24 History furosemide 10 mg/mL oral solution 10 mg feeding tube DIRECTED PRN 01/11/24 02/12/24 History Weight Gain ipratropium bromide 21 mcg (0.03 2 spray intranasal Q8H PRN 01/11/24 02/12/24 History %) nasal spray postnasal drip levalbuterol HCl 1.25 mg/3 mL 1.25 mg inhalation Q4H PRN 01/11/24 02/12/24 History solution for nebulization shortness of breath or wheezing or cough loperamide 1 mg/5 mL oral liquid 0 mg feeding tube DIRECTED PRN 01/11/24 02/12/24 History Diarrhea loperamide 2 mg capsule 2 mg feeding tube Q4H PRN Loose 01/11/24 02/12/24 History Stool nystatin 100,000 unit/gram topical 1 applic topical BID PEG TUBE SITE 01/11/24 02/12/24 History powder (Nystop) NEEDED pediatric multivitamin 1 tab feeding tube DAILY 01/11/24 02/12/24 History polyethylene glycol 3350 17 17 g feeding tube Q OTHER DAY 01/11/24 02/12/24 History gram/dose oral powder (Miralax) constipation fluocinonide-emollient 0.05 % 1 applic topical BID #60 grams 02/09/24 02/12/24 Rx topical cream Boost Energy Drink 1 can feeding tube TID 02/12/24 02/12/24 History acetaminophen 160 mg/5 mL (5 mL) 640 mg feeding tube Q4 PRN 02/12/24 02/12/24 History oral suspension fever/headache/minor ache/pain clotrimazole 1 % topical cream 1 applic topical QID PRN Rash 02/12/24 02/12/24 History guaifenesin 100 mg/5 mL oral 100 mg feeding tube TID 02/12/24 02/12/24 History liquid (Siltussin SA) mupirocin 2 % topical ointment 1 applic topical BID PRN skin 02/12/24 02/12/24 History abrasions zinc oxide 13 % topical cream 1 applic topical BID Bilateral 02/12/24 02/12/24 History Buttock skin issue Patient History Medical History Hypernatremia Hypokalemia Aspiration pneumonitis Acute diastolic CHF (congestive heart failure) Chronic rhinitis Seizure disorder (03/27/12) Esophageal dyskinesia Intellectual disability Uses feeding tube Surgical History History of craniotomy History of colonoscopy History of hernia repair History of esophagogastroduodenoscopy (EGD) History of cholecystectomy Family History Sister Microcephaly Intellectual disability Myelodysplasia (myelodysplastic syndrome) Father Cancer Myocardial infarction Other Family history non-contributory Denies family history of Ovarian cancer Prostate cancer Breast cancer Colorectal cancer Social History Smoking Status: Never smoker Second Hand Exposure: No; Do You Dip or Chew Tobacco: No; Hx Alcohol Use: No Hx Substance Use: No Preferred Language: Sri Lankan Communication Ability: Impaired Visual Impairment: No Limitations Hearing Ability: Normal Commission Specialist Required: No Beliefs That Will Affect Care: None marital status: Single Current Living Situation: Personal Care Facility Current Living Situation Comment: prison current occupational status: disabled Other Information That Helps Us Care for You: No Feels Safe at Home: Yes Safety Concerns: Feels Safe At This Time Childhood Exposure to Second-Hand Smoke: No Dental Care, Regularly: Yes Physical Activity Frequency: 1-2 Times per Week Seatbelt Use: always Sunscreen Use: No Assistive Devices: Wheelchair and Other Review of System Unable to obtain as patient is nonverbal. Physical Exam Physical Exam: General: Awake, alert, no acute distress HEENT: NC/AT, EOMI, mmm Neck: supple Lungs: respirations non-labored Heart: nl peripheral perfusion Abdomen: soft, NT/ND Back: no CVA tenderness Ext: no LE edema Skin: no rash Neuro: moving all extremities Results & Data Vital Signs (Past 12 Hours) Vital Signs Temp Pulse Resp BP Pulse Ox O2 Del Method 02/13/24 07:25 36.8 C 78 16 144/74 H 94 Room Air Laboratory Results Labs reviewed. Diagnostic Findings Imaging reviewed.
--- NOTE | 2024-02-13 17:00 | Hospitalist Progress Note ---
Date of Service February 13, 2024 Assessment & Plan (1) Urinary tract infection: Plan: February 08 - outpatient culture with multi-resistant Enterococcus faecalis, proteus mirabilis and pseudomonas aeruginosa (see H&P scanned sheet in note) Sensitive to IV Zosyn and po fosfomycin although that cannot be used for a complicated UTI Only symptom really was that pt was indicating discomfort in pubic region, but afebrile, no signs of sepsis However, the urine cx from outpt setting was not from a fresh Lance catheterization and is likely automobile rental representative of colonization Lance replaced in ER here and UA, Ur cx from here are from fresh Lance Ur cx with GNR--await final results Consulted ID for further input as to whether or not really needs treatment and if can use fosfomycin instead to avoid prolonged hospitalization for IV antibiotics He is doing well otherwise except diarrhea Follow CBC, BMP (2) Diarrhea: Plan: numerous loose stools, nonbloody starting 02/12 Could be antibiotic-associated diarrhea vs from using hospital tube feeds? Check C. diff, Stool PCR Follow BMP, Mag and replace lytes as needed, hydrate as needed Continue probiotics (3) Chronic indwelling Lance catheter: Plan: Placed for recurrent episodes of urine retention Do not remove lance catheter - follows with urology Last exchanged on 02/12/24 (4) Urinary retention: Plan: Noted in the ER. Lance catheter replaced in the ER, now draining well. Possibly from sediment from infection (5) Uses feeding tube: Plan: Consult dietary to continue his usual tube feeds-appreciated (6) Intellectual disability: Plan: Seizure disorder/intellectual disability/manic depressive disorder- Continue meds through the PEG tube: clozapine Plan VTE Prophylaxis - Lovenox 40mg SQ daily Disposition - continued stay med/surg, awaiting cultures Admission and Anticipated Discharge Date Admission Date: February 12, 2024 Subjective Pt having a lot of loose stools today, nonbloody. Otherwise his medical corps officer at bedside said he is acting like himself, no other concerns. Physical Exam Constitutional: average body habitus and + language barrier (aphasic but points with hand motions and nods head); no acute distress Respiratory: normal respiratory effort, lungs clear to auscultation Cardiovascular: RRR, no murmur, no edema Results & Data Results & Data Vital Signs (Past 12 Hours) Vital Signs Temp Pulse Resp BP Pulse Ox O2 Del Method 02/13/24 16:02 36.3 C L 77 18 125/70 98 Room Air 02/13/24 07:25 36.8 C 78 16 144/74 H 94 Room Air Laboratory Results CBC, CMP, urine cx reviewed PG Care Time/CCT Total # of Minutes Spent Total Time Spent with Patient: Total time spent is greater than 50% in coordination of care (as documented) at patient's floor/unit and/or counseling patient: Coding Level of Care Code 01284 SUB INP/OBS CARE 2/35MIN Diagnoses Urinary tract infection N39.0 Diarrhea R19.7 Chronic indwelling Lance catheter Z97.8 Urinary retention R33.9 Uses feeding tube Z97.8 Intellectual disability F79
[2024-02-13 17:41] LABS: Adenovirus F 40/41 PCR Not Detected (NotDetected); Astrovirus PCR Not Detected (NotDetected); Campylobacter PCR Not Detected (NotDetected); Cryptosporidium PCR Not Detected (NotDetected); Cyclospora cayetanensis PCR Not Detected (NotDetected); Entamoeba histolytica PCR Not Detected (NotDetected); Enteroaggregative E.coli(EAEC) Not Detected (NotDetected); Enteropathogenic E.coli (EPEC) Not Detected (NotDetected); Enterotoxigenic E.coli (ETEC) Not Detected (NotDetected); Giardia lamblia PCR Not Detected (NotDetected); Norovirus GI/GII PCR Not Detected (NotDetected); Plesiomonas shigelloides PCR Not Detected (NotDetected); Rotavirus A PCR Not Detected (NotDetected); Salmonella PCR Not Detected (NotDetected); Sapovirus PCR Not Detected (NotDetected); Shiga-like Toxin E.coli (STEC) Not Detected (NotDetected); Shigella/Enteroinvasive E.coli Not Detected (NotDetected); Vibrio cholerae PCR Not Detected (NotDetected); Vibrio species PCR Not Detected (NotDetected); Yersinia enterocolitica PCR Not Detected (NotDetected)
[2024-02-13] MEDS: BUTT PASTE (ZINC OXIDE 16%) 171 APPLN/57 GM JAR TOP SCH (21:01)
[2024-02-13] MEDS: LOPERAMIDE LIQUID 120 ML BOTTLE PEG PRN (21:02)
[2024-02-14 07:13] LABS: Basophils # (auto) 0.04 K/uL (0.00-0.20); Basophils % (auto) 0.7 %; Eosinophils # (auto) 0.28 K/uL (0.00-0.50); Eosinophils % (auto) 4.9 %; Hematocrit (blood only) 30.9 % (42.0-52.0); Hemoglobin 10.1 g/dl (14.0-18.0); Immature Granulocytes # (auto) 0.03 K/uL (0.01-0.20); Immature Granulocytes % (auto) 0.5 %; Lymphocytes # (auto) 1.58 K/uL (1.20-3.40); Lymphocytes % (auto) 27.8 %; Mean Corpuscular Hemoglobin 31.7 pg (25.0-34.0); Mean Corpuscular Hgb Conc 32.7 g/dL (32.0-36.0); Mean Corpuscular Volume 96.9 fL (80.0-100.0); Monocytes # (auto) 0.78 K/uL (0.11-0.59); Monocytes % (auto) 13.7 %; Neutrophils # (auto) 2.98 K/uL (1.40-6.50); Neutrophils % (auto) 52.4 %; Platelet Count 119 K/uL (130-400); RDW Coefficient of Variation 14.5 % (11.5-14.5); RDW Standard Deviation 51.1 fL (36.4-46.3); Red Blood Count 3.19 M/uL (4.70-6.10); White Blood Count 5.69 K/ul (4.8-10.8)
--- NOTE | 2024-02-14 07:25 | Infectious Disease Progress Nt ---
Date of Service February 14, 2024 Assessment & Plan (1) Urinary tract infection: (2) Chronic indwelling Lance catheter: (3) Urinary retention: (4) Microcephaly: Plan 68yo M, nonverbal, with h/o MDS, microcephaly, intellectual disability, manic depressive d/o, seizure d/o, urinary retention s/p lance in 09/2023 (previous failed void trials, gets lance changed monthly), recent admission 01/10-01/15 with resistant Proteus in UCX s/p ertapenem (UCX was collected because Lance catheter was poorly draining on 01/07 ED) who presented on 02/11 with c/f a UTI on UCX done at urology office due to malodorous urine. Careworker reported that he had been reaching towards his groin and had appeared more uncomfortable. Outpatient UCx with E faecalis, Proteus mirabilis, and PsA. Here, he has been afebrile. WBC wnl, Cr 1.27. AST/ALT wnl. UA (received 1342) with > 50WBC. UCx with P mirabilis (R-FQ, I-cefazolin). He has been started on zosyn. ID consulted 02/12. Treating UTI since patient was noted to be uncomfortable and reaching for groin. Otherwise no fevers or leukocytosis. Repeat UCx at [facility] done before receiving any antibiotics and presumably after lance was changed showed only Proteus mirabilis. PO options include Bactrim, augmentin, or cefpodoxime. It seems he has an allergy (rash) to augmentin, though he is tolerating zosyn. Renal function is normal, though I do note the Cr is up to 1.31 today, but CrCl remains > 30. We can therefore use either Bactrim or cefpodoxime for a duration of 7 days. # CAUTI 2/2 P mirabilis # h/o MDS # Microcephaly, nonverbal - Lorna stopped zosyn and started CTX 1g IV daily while inpatient - on discharge, can use either Bactrim 1DS twice daily or cefpodoxime 200mg PO twice daily - complete duration of 7 days (starting 02/11, eot 02/17) - In the future, would not send UA or UCx if patient does not have any symptoms. Asymptomatic pyuria/bacteriuria does not indicate an infection and further treatment of such only produces more resistant organisms. - repeat UA/UCx is not indicated following completion of antibiotics for a UTI unless patient has symptoms ID will discontinue active follow up at this time. Please do not hesitate to reconsult the Infectious Diseases service as needed. Danielle Blake MD [facility], Division of Infectious Diseases [employer]: [phone] Admission and Anticipated Discharge Date Admission Date: February 12, 2024 Subjective This patient recommendation is based on a telemedicine consult request which was completed asynchronously through chart review and information provided by the primary physician. The patient was not seen or examined today. The evaluation is consultative in nature and all patient care and treatment decisions can either be accepted or rejected by the patient's primary hospital-based treating physician using their own independent medical judgment for their patient. Time Spent Reviewing Chart: 31+ minutes Results & Data Vital Signs (Past 12 Hours) Vital Signs Temp Pulse Resp BP Pulse Ox O2 Del Method 02/13/24 20:14 36.4 C L 88 16 149/68 H 96 Room Air Laboratory Results Labs reviewed.
[2024-02-14 07:36] LABS: BUN Creatinine Ratio 22.9 (10-20); Calcium 9.2 mg/dl (8.6-10.3); Creatinine Clr Calc Pharmacy 50.3 ml/min; Est GFR (African American) 64.4 ml/min; Est GFR (Non-African American) 55.5 ml/min; Magnesium 2.1 mg/dl (1.7-2.4); Potassium 3.6 mmol/L (3.5-5.1)
[2024-02-14] MEDS ORDERED: POLYETHYLENE (MIRALAX) 17 GM PACK PEG SCH (09:00)
[2024-02-14] MEDS: cefTRIAXone SODIUM 1,000 MG/50 ML BAG IV SCH (10:50)
--- NOTE | 2024-02-14 14:32 | Discharge Summary ---
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 Asymptomatic pyuria/bacteriuria does not indicate an infection and further treatment of such only produces more resistant organisms. A repeat UA/UCx is not indicated following completion of antibiotics for a UTI unless patient has symptoms Consulted ID appreciated He is doing well otherwise except diarrhea which is improved and neg for C. diff and Stool PCR panel negative (2) Diarrhea: numerous loose stools, nonbloody starting 02/12, neg for C. diff and Stool PCR neg do can take Imodium prn--> improving now Could be antibiotic-associated diarrhea vs from using hospital tube feeds different from his usual Electrolytes normal and not dehydrated Continue probiotics (3) Chronic indwelling Lance catheter: Placed for recurrent episodes of urine retention Do not remove lance catheter - follows with urology Last exchanged on 02/12/24 (4) Urinary retention: Noted in the ER. Lance catheter replaced in the ER, now draining well. Possibly from sediment from infection (5) Uses feeding tube: Consult dietary to continue his usual tube feeds-appreciated (6) Intellectual disability: Seizure disorder/intellectual disability/manic depressive disorder- Continue meds through the PEG tube: clozapine Plan VTE Prophylaxis - Lovenox 40mg SQ daily Disposition - dc to [facility], discussed all care with mold inspector, Kyleigh, and with Aurora his RN from [facility] on phone Notes For Next Care Provider In the future, would not send UA or UCx if patient does not have any symptoms. Asymptomatic pyuria/bacteriuria does not indicate an infection and further treatment of such only produces more resistant organisms. A repeat UA/UCx is not indicated following completion of antibiotics for a UTI unless patient has symptoms Medication Changes From Visit Added cefpodoxime 200mg po bid x 4.5 more days Admission HPI Per Admitting Provider Marty Simms is a 68 year old male who presents to the ER with concerns for a urinary tract infection. Urine culture from urology office growing multi- resistant Enterococcus faecalis, proteus mirabilis and pseudomonas aeruginosa. Patient with microcephaly and intellectual disability and cannot provide any history. He lives at a residential home. Care worker at bedside reports reaching towards his groin which is not normal for him and appears more uncomfortable. No fever or chills. Difficulty sleeping last night. No gross change in his urine. Catheter was noted to be blocked in the ER and was changed. Discharge Exam Constitutional average body habitus and + language barrier (aphasic but points with hand motions and nods head); no acute distress Respiratory normal respiratory effort, lungs clear to auscultation Cardiovascular RRR, no murmur, no edema Genitourinary Lance with clear yellow urine Updated Medication List Medication Instructions Recorded Confirmed Type ostomy supplies (Adapt Stoma #28.3 grams 11/12/19 01/18/24 Rx Powder topical) nebulizer accessories #1 ea 07/30/20 01/18/24 Rx sheep skin heel protectors #1 ea 11/11/21 01/18/24 Rx diaper,brief,adult,disposable #240 ea 01/11/22 01/18/24 Rx clozapine 25 mg tablet (Clozaril) 25 mg feeding tube HS 10/27/22 02/12/24 History clozapine 50 mg tablet 50 mg feeding tube QAM 10/27/22 02/12/24 History ondansetron 4 mg disintegrating 4 mg feeding tube Q4H PRN Nausea 09/01/23 02/12/24 History tablet And Vomiting aluminum-mag hydroxide-simethicone 30 ml feeding tube BID PRN upset 10/26/23 02/12/24 Rx 200 mg-200 mg-20 mg/5 mL oral susp stomach/vomiting #3,000 mL (Antacid Liquid) bisacodyl 10 mg rectal suppository 10 mg WI DAILY PRN Constipation 10/26/23 02/12/24 Rx #12 ea cetirizine 10 mg disintegrating 10 mg feeding tube DAILY #90 tabs 10/26/23 02/12/24 Rx tablet cyanocobalamin (vitamin B-12) 1,000 mcg feeding tube DAILY #30 10/26/23 02/12/24 Rx 1,000 mcg tablet (Vitamin B-12) tabs docusate sodium 50 mg/5 mL oral 100 mg (10 mL) feeding tube DAILY 10/26/23 02/12/24 Rx liquid #1,000 mL chlorhexidine gluconate 0.12 % 15 ml buccal BID #473 mL 12/01/23 02/12/24 Rx mouthwash (Peridex) Saccharomyces boulardii 250 mg 250 mg feeding tube BID #60 caps 12/04/23 02/12/24 Rx capsule diaper,brief,adult,disposable #216 ea 12/06/23 01/18/24 Rx (Wings Choice Plus Adult Briefs) compress.stocking,knee,reg,med #2 ea 12/18/23 01/18/24 Rx fluticasone propionate 50 2 spray intranasal DAILY #16 grams 12/27/23 02/12/24 Rx mcg/actuation nasal spray,suspension allopurinol 100 mg tablet 100 mg feeding tube BID 01/08/24 02/12/24 History clozapine 100 mg tablet 100 mg feeding tube HS 01/08/24 02/12/24 History benzonatate 100 mg capsule 100 mg TID PRN cough 01/11/24 02/12/24 History furosemide 10 mg/mL oral solution 10 mg feeding tube DIRECTED PRN 01/11/24 02/12/24 History Weight Gain ipratropium bromide 21 mcg (0.03 2 spray intranasal Q8H PRN 01/11/24 02/12/24 History %) nasal spray postnasal drip levalbuterol HCl 1.25 mg/3 mL 1.25 mg inhalation Q4H PRN 01/11/24 02/12/24 History solution for nebulization shortness of breath or wheezing or cough loperamide 1 mg/5 mL oral liquid 0 mg feeding tube DIRECTED PRN 01/11/24 02/12/24 History Diarrhea loperamide 2 mg capsule 2 mg feeding tube Q4H PRN Loose 01/11/24 02/12/24 History Stool nystatin 100,000 unit/gram topical 1 applic topical BID PEG TUBE SITE 01/11/24 02/12/24 History powder (Nystop) NEEDED pediatric multivitamin 1 tab feeding tube DAILY 01/11/24 02/12/24 History polyethylene glycol 3350 17 17 g feeding tube Q OTHER DAY 01/11/24 02/12/24 History gram/dose oral powder (Miralax) constipation fluocinonide-emollient 0.05 % 1 applic topical BID #60 grams 02/09/24 02/12/24 Rx topical cream Boost Energy Drink 1 can feeding tube TID 02/12/24 02/12/24 History acetaminophen 160 mg/5 mL (5 mL) 640 mg feeding tube Q4 PRN 02/12/24 02/12/24 History oral suspension fever/headache/minor ache/pain clotrimazole 1 % topical cream 1 applic topical QID PRN Rash 02/12/24 02/12/24 History guaifenesin 100 mg/5 mL oral 100 mg feeding tube TID 02/12/24 02/12/24 History liquid (Siltussin SA) mupirocin 2 % topical ointment 1 applic topical BID PRN skin 02/12/24 02/12/24 History abrasions zinc oxide 13 % topical cream 1 applic topical BID Bilateral 02/12/24 02/12/24 History Buttock skin issue cefpodoxime 200 mg tablet 200 mg feeding tube BID #9 tabs 02/14/24 Rx Hospital Stay Data Consultations 02/13/24 09:57 Consult Infectious Diseases Routine Procedures Performed None Diagnostic Imagining Performed None Pending Results Patient Have Any Pending Studies at Discharge: No Discharge Instructions Given to Patient (Per Discharging Provider) Please complete cefpodoxime 200mg PO twice daily for duration of 7 days (including time of antibiotics in hospital) through 02/17. In the future, I would not send UA or Urine culture if patient does not have any symptoms. Asymptomatic pyuria/bacteriuria does not indicate an infection and further treatment of such only produces more resistant organisms. A repeat UA/Urine culture is not indicated following completion of antibiotics for a UTI unless patient has symptoms. Please follow up with Urology for catheter exchange in 1 month or sooner as scheduled and discuss possibility of preventive methenamine for preventing UTIs. Total Time Total Time Spent Total Time Spent (In Minutes): 35 min Total Time Includes: Examination of the Patient, Discharge Planning, Medication Reconciliation and Communication With Other Providers (Infectious Disease) Coding Level of Care Code 83589 INP/OBS DISCH >30 MIN Diagnoses Urinary tract infection N39.0 Diarrhea R19.7 Chronic indwelling Lance catheter Z97.8 Urinary retention R33.9 Uses feeding tube Z97.8 Intellectual disability F79
== END 2024-02-14 15:25 | disposition home or self-care (01) ==
LOC: ED 10:45 → 3N 10:45 → SUATTDRO 14:43 → 3N 16:06

== ENCOUNTER 2025-04-06 12:38 | Inpatient (IN) ==
--- NOTE | 2025-04-06 12:59 | Emergency Department Note ---
History of Present Illness General Chief complaint: Need IV Start Stated complaint: DOC REFF, IV ANTIBIOTICS Time Seen by Provider: 04/06/25 12:51 History of Present Illness This is a 70-year-old male that presents to the emergency department via private vehicle with complaints of "doctor referral, IV antibiotics, UTI". History obtained from person at bedside that identifies as "steam frame operator" where the patient currently resides. The patient is nonverbal at baseline. Patient referred in for multidrug-resistant UTI. Patient will require IV antibiotics. No reported fever. No vomiting. Patient reportedly in his usual state of health, overall doing well. Home Medications Medication Instructions Recorded Confirmed Type nebulizer accessories #1 ea 07/30/20 02/10/25 Rx sheep skin heel protectors #1 ea 11/11/21 02/10/25 Rx diaper,brief,adult,disposable #240 ea 01/11/22 02/10/25 Rx clozapine 50 mg tablet 50 mg feeding tube QAM 10/27/22 02/10/25 History chlorhexidine gluconate 0.12 % 15 ml buccal BID #473 mL 12/01/23 02/10/25 Rx mouthwash (Peridex) Saccharomyces boulardii 250 mg 250 mg feeding tube BID #60 caps 12/04/23 02/10/25 Rx capsule compress.stocking,knee,reg,med #2 ea 12/18/23 02/10/25 Rx clozapine 100 mg tablet 100 mg feeding tube HS 01/08/24 02/10/25 History pediatric multivitamin 1 tab feeding tube QAM 01/11/24 02/10/25 History nutrition tx glu See Rx Instructions .Route 06/06/24 02/10/25 Rx intol,lac-free,soy-fiber 0.08 .COMPLEX #960 oz gram-1.5 kcal/mL liquid (Glucerna 1.5 Kevin) polyethylene glycol 3350 17 17 g feeding tube Q OTHER DAY 11/18/24 02/10/25 Rx gram/dose oral powder (Miralax) constipation #238 grams levalbuterol HCl 1.25 mg/3 mL 1.25 mg (3 mL) inhalation Q4H PRN 11/26/24 02/10/25 Rx solution for nebulization shortness of breath or wheezing or cough #75 mL clotrimazole 1 % topical cream 1 applic topical QID PRN Rash #45 12/02/24 02/10/25 Rx grams furosemide 10 mg/mL oral solution 10 mg feeding tube DIRECTED PRN 12/02/24 02/10/25 Rx Weight Gain #60 mL loperamide 2 mg capsule 2 mg feeding tube Q4H PRN Loose 12/02/24 02/10/25 Rx Stool #30 caps acetaminophen 160 mg/5 mL (5 mL) 640 mg (20 mL) feeding tube Q4 PRN 01/23/25 02/10/25 Rx oral suspension fever/headache/minor ache/pain #500 mL cetirizine 10 mg disintegrating 10 mg feeding tube QAM 01/25/25 02/10/25 History tablet cranberry extract 500 mg tablet 500 mg PO BID 01/25/25 02/10/25 History cyanocobalamin (vitamin B-12) 1,000 mcg feeding tube 2XWK 01/25/25 02/10/25 History 1,000 mcg tablet (Vitamin B-12) d-mannose 500 mg capsule 1,000 mg PO DAILY 01/25/25 02/10/25 History docusate sodium 50 mg/5 mL oral 100 mg feeding tube QAM 01/25/25 02/10/25 History liquid fluticasone propionate 50 2 spray intranasal QAM 01/25/25 02/10/25 History mcg/actuation nasal spray,suspension guaifenesin 100 mg/5 mL oral 100 mg feeding tube TID 01/25/25 02/10/25 History liquid (Chani-Tussin) nystatin 100,000 unit/gram topical 1 applic topical DAILY PRN 01/25/25 02/10/25 History powder Affected Peg site zinc oxide 13 % topical cream 1 applic topical BID Bilateral 01/25/25 02/10/25 History Buttock skin issue Lactobacillus acidophilus PO BID 02/10/25 02/10/25 History [Probiotic Acidophilus] aluminum-mag hydroxide-simethicone 30 ml feeding tube BID PRN UPSET 02/10/25 02/10/25 History 200 mg-200 mg-20 mg/5 mL oral susp STOMACH/VOMITING amoxicillin 875 mg-potassium 1 tab feeding tube BID 02/10/25 02/10/25 History clavulanate 125 mg tablet bisacodyl 10 mg rectal suppository 10 mg NM DAILY PRN constipation 02/10/25 02/10/25 History clozapine 25 mg tablet (Clozaril) 25 mg feeding tube HS #30 tabs 02/10/25 Rx neomycin-bacitracn Zn-polymyx 3.5 1 applic topical DAILY 02/10/25 02/10/25 History mg-400 unit-5,000 unit/gram top oint (Triple Antibiotic) fluocinonide-emollient 0.05 % 1 applic topical BID PRN rash #60 02/13/25 02/13/25 Rx topical cream grams nystatin 100,000 unit/gram topical 1 applic topical BID Abdomen twice 02/18/25 Rx powder (Nystop) daily #30 grams allopurinol 100 mg tablet 100 mg feeding tube BID #180 tabs 02/28/25 Rx diaper,brief,adult,disposable #216 ea 03/11/25 Rx ([employer] Plus Adult Briefs) Allergies Allergy/AdvReac Type Severity Reaction Status Date / Time glycopyrrolate Allergy Severe TONGUE Verified 02/13/25 14:37 SWELLING trazodone Allergy Severe SWELLING Verified 02/13/25 14:37 OF TONGUE & EXTREMITIES, DIFFICULTY BREATHING. lithium Allergy Intermediate EXCESSIVE Verified 02/13/25 14:37 DRINKING, DECREASED APPETITE & VERBALIZATIONS risperidone Allergy Intermediate POSSIBLE Verified 02/13/25 14:37 NEUROLEPTIC MALIGNANCY SYNDROME amoxicillin [From Augmentin] Allergy Mild Rash Verified 02/13/25 14:37 clavulanic acid Allergy Mild Rash Verified 02/13/25 14:37 [From Augmentin] Macrolide Antibiotics Allergy Mild RASH Verified 02/13/25 14:37 belladonna alkaloids Allergy Unknown Unknown Verified 02/13/25 14:37 clarithromycin Allergy Unknown Unknown Verified 02/13/25 14:37 metoclopramide Allergy Unknown PT TAKES Verified 02/13/25 14:37 AT HOME Phenylpiperazine Allergy Unknown Unknown - Unverified 02/13/25 14:37 Antidepressant On med list from [facility] aripiprazole AdvReac Intermediate HYPERACTIVITY Verified 02/13/25 14:37 & INSOMNIA Anticholinergics Allergy Unknown Unknown - Uncoded 02/13/25 14:37 On med list from [facility] Past Med/Surg History Problem List (Updated 04/06/25 @ 18:18 by Refugio Joseph PA-C) UTI (urinary tract infection) (Acute) Catheter-associated urinary tract infection Acute hypernatremia Elevated hemidiaphragm Acute diastolic (congestive) heart failure Acute respiratory failure with hypoxia Acute hypoxemic respiratory failure Parapneumonic effusion Hypoxia (Acute) CKD (chronic kidney disease) stage 2, GFR 60-89 ml/min Infection due to extended spectrum beta lactamase (ESBL) producing Proteus mirabilis Seizure disorder (03/27/12) Aspiration pneumonitis Elevated liver function tests Microcephaly (Chronic) Myelodysplasia (myelodysplastic syndrome) Prediabetes Urinary retention Diarrhea Chronic indwelling Hendrix catheter (Chronic) Changed 01/24/2025 Congestive heart failure (Acute) Chronic rhinitis Constipation Anemia (Chronic) Thrombocytopenia (Chronic) Gingival and periodontal disease (Acute) Gait disturbance (Acute) Esophageal dyskinesia (Acute) Chronic PEG tube Edema (Acute) Absent kidney, acquired (Acute) Weight gain Bilateral lower extremity edema Cough Dysphagia Gout Medical History (Updated 04/06/25 @ 18:18 by Refugio Joseph PA-C) Pneumonia, aspiration Hypernatremia Hypokalemia Acute diastolic CHF (congestive heart failure) Surgical History History of craniotomy History of colonoscopy History of hernia repair History of esophagogastroduodenoscopy (EGD) History of cholecystectomy Family History Sister Microcephaly Intellectual disability Myelodysplasia (myelodysplastic syndrome) Father Cancer Myocardial infarction Other Family history non-contributory Denies family history of Ovarian cancer Prostate cancer Breast cancer Colorectal cancer Social History Smoking Status: Never smoker Second Hand Exposure: No; Do You Dip or Chew Tobacco: No; Hx Alcohol Use: No Hx Substance Use: No Preferred Language: Slovak Communication Ability: Impaired Visual Impairment: No Limitations Hearing Ability: Normal Form Carpenter Required: No Beliefs That Will Affect Care: None marital status: Single Current Living Situation: Alone Current Living Situation Comment: Personal usp. current occupational status: disabled Feels Safe at Home: Yes Safety Concerns: Feels Safe At This Time Childhood Exposure to Second-Hand Smoke: No Dental Care, Regularly: Yes Physical Activity Frequency: 1-2 Times per Week Seatbelt Use: always Sunscreen Use: No Assistive Devices: Wheelchair Review of Systems A total of 10 systems reviewed and were otherwise negative Physical Exam Vital Signs Vital Signs - 24 hr 04/06/25 12:42 04/06/25 14:08 04/06/25 14:15 Temperature 35.1 C L 36.5 C Temperature Source Temporal Artery Scan Oral Pulse Rate 76 66 Pulse Rate [Apical] 64 Pulse Strength [Apical] Normal Respiratory Rate 16 17 17 Respiratory Effort / Characteristics Non-Labored Spontaneous Non-Labored Spontaneous Respiratory Depth Normal Normal Respiratory Pattern Regular Regular Blood Pressure 124/74 Blood Pressure [Right Arm] 119/68 Blood Pressure Mean 90 Blood Pressure Mean [Right Arm] 85 Blood Pressure Position Lying Pulse Oximetry 96 99 96 Oxygen Delivery Method Room Air Room Air Room Air Sepsis Recent Fever Within 48 Hours No Sepsis New/Unexplained Change in Mental Status N/A Sepsis Action Taken by Nursing No Action Required 04/06/25 14:16 04/06/25 14:36 Temperature 36.5 C Temperature Source Oral Pulse Rate 68 Pulse Rate [Apical] Pulse Strength [Apical] Respiratory Rate Respiratory Effort / Characteristics Respiratory Depth Respiratory Pattern Blood Pressure Blood Pressure [Right Arm] Blood Pressure Mean Blood Pressure Mean [Right Arm] Blood Pressure Position Pulse Oximetry Oxygen Delivery Method Sepsis Recent Fever Within 48 Hours Sepsis New/Unexplained Change in Mental Status Sepsis Action Taken by Nursing VITAL SIGNS - Vital signs and nursing notes were reviewed. Stable and afebrile. GENERAL -70-year-old male appearing his age who is in no acute distress. Patient smiles, makes eye contact. SKIN - Without rashes. No meningeal or petechial rash. HEAD - NC/AT. EYES - PERRL with EOMI bilaterally. Sclera anicteric. EARS - No deformities of external structures noted on gross examination bilaterally. NOSE - Midline and without cyanosis. No epistaxis or purulent drainage noted. MOUTH/OROPHARYNX - Without perioral cyanosis. NECK - Neck with FROM. No nuchal rigidity. LUNGS -clear to auscultation CARDIAC - RRR ABDOMEN - Abdominal contour normal without pulsations or visible masses. BS normoactive all four quadrants. No identified tenderness, palpable masses, hepatosplenomegaly, or ascites noted. EXTREMITIES - +5/5 strength noted in UE/LE bilaterally. NEUROLOGIC -patient makes eye contact, smiles. PSYCH -alert, oriented and pleasant on exam Course Administered Medications Discontinued Medications Ertapenem (Invanz 1000mg) 1,000 mg in 10 mls @ 2 mls/min IV NOW STA Stop: 04/06/25 13:55 Last Admin: 04/06/25 14:05 Dose: 2 mls/min Documented By: SHANTE Medical Decision Making Laboratory Data 04/06/25 17:26 04/06/25 13:53 Lab Results 04/06/25 04/06/25 Range/Units 13:08 13:53 WBC 8.60 (4.8-10.8) K/ul RBC 3.67 L (4.70-6.10) M/uL Hgb 11.8 L (14.0-18.0) g/dl Hct 36.4 L (42.0-52.0) % MCV 99.2 (80.0-100.0) fL MCH 32.2 (25.0-34.0) pg MCHC 32.4 (32.0-36.0) g/dL RDW Std Deviation 49.8 H (36.4-46.3) fL RDW Coeff of Isaac 13.8 (11.5-14.5) % Plt Count 159 (130-400) K/uL MPV 12.6 H (9.4-12.4) fL Immature Gran % (Auto) 0.5 % Neut % (Auto) 71.4 % Lymph % (Auto) 14.9 % Vermilion % (Auto) 11.0 % Eos % (Auto) 1.6 % Baso % (Auto) 0.6 % Neut # (Auto) 6.14 (1.40-6.50) K/uL Lymph # (Auto) 1.28 (1.20-3.40) K/uL Vermilion # (Auto) 0.95 H (0.11-0.59) K/uL Eos # (Auto) 0.14 (0.00-0.50) K/uL Baso # (Auto) 0.05 (0.00-0.20) K/uL Immature Gran # (Auto) 0.04 (0.01-0.20) K/uL Sodium 137 (136-145) mmol/L Potassium TNP 4.5 Chloride 103 (98-107) mmol/L Carbon Dioxide 27 (21-32) mmol/L Anion Gap 7 (3-11) BUN 42 H (6-23) mg/dl Creatinine 1.05 (0.6-1.4) mg/dl Est Cr Clr Drug Dosing Not Reportable eGFR 76.36 BUN/Creatinine Ratio 40.0 H (10-20) Glucose 77 (70-99(Fasting)) mg/dl Calcium 10.0 (8.6-10.3) mg/dl Total Bilirubin 0.4 (0.2-1.0) mg/dl AST TNP 35 ALT 52 (7-52) U/L Alkaline Phosphatase 142 H (34-104) U/L Total Protein 8.1 (6.0-8.3) gm/dl Albumin 3.8 (3.4-5.0) gm/dl Globulin 4.3 H (2.5-4.0) gm/dl Albumin/Globulin Ratio 0.9 (0.9-2) Procalcitonin Cancelled Imaging Data Radiologist's Impression: Chest radiograph, one view History: Cough Comparison: January 29, 2025 Findings: Single AP view of the chest performed. Small right pleural effusion, appears decreased. There are patchy opacities in the lower lungs, right greater than left. No pneumothorax. The cardiomediastinal silhouette is within normal limits. The pulmonary vascularity is mildly indistinct especially on the right. No visualized bony or soft tissue abnormality. Impression: Small, focal patchy opacities in the lower lungs, right greater than left, which may be infectious, were not definitely seen on prior, noting the right lung was more obscured on prior by a larger pleural effusion. Electronically signed by Von Alexander 04-06-2025 5:03 PM MDM Narrative Patient was seen and evaluated as above in room C3. Review was performed of triage nursing notes and vital signs. I did review pertinent previous visits and patient history. After obtaining a thorough history and physical examination the above work up was performed. Patient presents for IV antibiotics/admission noting multidrug-resistant UTI. Per review of the EMR patient underwent urinalysis on 04/03/2025 which grew out Morganella morganii as well as Citrobacter freundii complex. Unfortunately multiple resistances were noted. This is only sensitive to for antibiotics. Amikacin, cefoxitin, ertapenem, meropenem. The patient does have multiple allergies listed as well. I discussed this with our clinical pharmacist and we will proceed with ertapenem which she has had to be for without issue. It appears the patient did have a recent catheter change. Per review of the EMR the patient last had the catheter changed on 04/03/2025. The UA with culture was taken from the fresh catheter on that visit per review of the EMR. [id number] [employer] called and spoke to the guardian listed in the EMR for the patient. I spoke to Oralia Smyth ([phone]). We are in agreement with the plan. All questions were answered. There is no leukocytosis. Mild anemia noted, similar to previous. No emergent metabolic disturbance but will note elevation of BUN at 42, similar to previous. Patient last PEG tube feeding was 11:30 AM. I do believe that further evaluation and management the inpatient setting is warranted. Case discussed with the hospitalist service. Please refer to further documentation regarding patient stay. [id number] recheck team later bedside noted patient has had a cough over the past few days. Nonproductive in nature. They did note some mild rhinorrhea this morning. They question possible viral URI. I will add on bio fire as well as a chest x-ray. Bed is ready at this time upstairs. I did notify the hospitalist service. The chest x-ray resulted and the patient is upstairs at this time, admitted. I did notify the hospitalist of the chest x-ray findings. GCS: 15 In the evaluation and treatment of this patient the following differential diagnoses were entertained: UTI, pyelonephritis, sepsis, urinary obstruction, among others. Impression & Plan UTI (urinary tract infection) Discharge Plan Visit Data Chief Complaint: Need IV Start Stated Complaint: DOC REFF, IV ANTIBIOTICS ED Provider: Jason Moncada ED Midlevel Provider: Refugio Joseph Discharge Problem: UTI (urinary tract infection) Patient Disposition: Admitted As Inpatient Condition: Fair Discharge Instructions Interventions: ED Discharge Assessment Last Done: 04/06/25 16:39
--- NOTE | 2025-04-06 13:12 | Emergency Department Note ---
ED Visit Note I was consulted in regards to the patient's presentation and plan of care by the Advanced Practice Provider. I engaged in a detailed/meaningful discussion with the Advanced Practice Provider in regards to this patient's workup and plan of care. I performed a substantiative portion of the medical decision making following discussion with the Advanced Practice Provider. Please see the Advanced Practice Provider's separate documentation for full details of the patient's visit. I agree with the assessment and plan of Refugio Joseph PA-C. Jason Moncada, Emergency Medicine .
[2025-04-06 13:28] LABS: Hematocrit (blood only) 36.4 % (42.0-52.0); Hemoglobin 11.8 g/dl (14.0-18.0); Immature Granulocytes # (auto) 0.04 K/uL (0.01-0.20); Immature Granulocytes % (auto) 0.5 %; Mean Corpuscular Hemoglobin 32.2 pg (25.0-34.0); Mean Corpuscular Volume 99.2 fL (80.0-100.0); Platelet Count 159 K/uL (130-400); RDW Standard Deviation 49.8 fL (36.4-46.3); Red Blood Count 3.67 M/uL (4.70-6.10); White Blood Count 8.60 K/ul (4.8-10.8)
[2025-04-06 13:48] LABS: Alanine Aminotransferase 52 U/L (7-52); Albumin Globulin Ratio 0.9 (0.9-2); Alkaline Phosphatase 142 U/L (34-104); Anion Gap 7 (3-11); Bilirubin,Total 0.4 mg/dl (0.2-1.0); Blood Urea Nitrogen 42 mg/dl (6-23); Calcium 10.0 mg/dl (8.6-10.3); Carbon Dioxide 27 mmol/L (21-32); Chloride 103 mmol/L (98-107); Globulin 4.3 gm/dl (2.5-4.0); Glucose 77 mg/dl (70-99(Fasting)); Sodium 137 mmol/L (136-145); Total Protein 8.1 gm/dl (6.0-8.3)
[2025-04-06] MEDS: ERTAPENEM 1000MG 1,000 MG/10 ML SYR IV STA (14:05)
[2025-04-06 14:33] LABS: Potassium 4.5 mmol/L (3.5-5.1)
--- NOTE | 2025-04-06 15:04 | History & Physical Report ---
Date of Service April 06, 2025 Assessment & Plan (1) Catheter-associated urinary tract infection: Plan: The patient is growing Morganella and Citrobacter in the urine resistant to all oral medications. He is admitted for ertapenem intravenous therapy, day 1 (2) Microcephaly: Plan: Congenital. Nonverbal. Supportive care (3) Seizure disorder: (4) Myelodysplasia (myelodysplastic syndrome): Plan: Serial labs. No intervention needed at this time (5) Esophageal dyskinesia: Plan: PEG tube feeding dependent Plan Anticipate return to [facility] when he completes his IV ertapenem in 5 days History of Present Illness Chief Complaint: Recurrent CAUTI with resistant organisms Primary Care Provider: YOON Vaughn 70-year-old white male with microcephaly who is PEG tube feeding dependent and has chronic indwelling Hendrix catheter. He has a recurrent catheter associated UTI with resistant organisms consisting of Morganella and Citrobacter. He is admitted for IV ertapenem treatment. Currently no fever. No gross hematuria. Allergies Allergy/AdvReac Type Severity Reaction Status Date / Time glycopyrrolate Allergy Severe TONGUE Verified 02/13/25 14:37 SWELLING trazodone Allergy Severe SWELLING Verified 02/13/25 14:37 OF TONGUE & EXTREMITIES, DIFFICULTY BREATHING. lithium Allergy Intermediate EXCESSIVE Verified 02/13/25 14:37 DRINKING, DECREASED APPETITE & VERBALIZATIONS risperidone Allergy Intermediate POSSIBLE Verified 02/13/25 14:37 NEUROLEPTIC MALIGNANCY SYNDROME amoxicillin [From Augmentin] Allergy Mild Rash Verified 02/13/25 14:37 clavulanic acid Allergy Mild Rash Verified 02/13/25 14:37 [From Augmentin] Macrolide Antibiotics Allergy Mild RASH Verified 02/13/25 14:37 belladonna alkaloids Allergy Unknown Unknown Verified 02/13/25 14:37 clarithromycin Allergy Unknown Unknown Verified 02/13/25 14:37 metoclopramide Allergy Unknown PT TAKES Verified 02/13/25 14:37 AT HOME Phenylpiperazine Allergy Unknown Unknown - Unverified 02/13/25 14:37 Antidepressant On med list from [facility] aripiprazole AdvReac Intermediate HYPERACTIVITY Verified 02/13/25 14:37 & INSOMNIA Anticholinergics Allergy Unknown Unknown - Uncoded 02/13/25 14:37 On med list from [facility] Home Medications Medication Instructions Recorded Confirmed Type nebulizer accessories #1 ea 07/30/20 02/10/25 Rx sheep skin heel protectors #1 ea 11/11/21 02/10/25 Rx diaper,brief,adult,disposable #240 ea 01/11/22 02/10/25 Rx clozapine 50 mg tablet 50 mg feeding tube QAM 10/27/22 02/10/25 History chlorhexidine gluconate 0.12 % 15 ml buccal BID #473 mL 12/01/23 02/10/25 Rx mouthwash (Peridex) Saccharomyces boulardii 250 mg 250 mg feeding tube BID #60 caps 12/04/23 02/10/25 Rx capsule compress.stocking,knee,reg,med #2 ea 12/18/23 02/10/25 Rx clozapine 100 mg tablet 100 mg feeding tube HS 01/08/24 02/10/25 History pediatric multivitamin 1 tab feeding tube QAM 01/11/24 02/10/25 History nutrition tx glu See Rx Instructions .Route 06/06/24 02/10/25 Rx intol,lac-free,soy-fiber 0.08 .COMPLEX #960 oz gram-1.5 kcal/mL liquid (Glucerna 1.5 Kevin) polyethylene glycol 3350 17 17 g feeding tube Q OTHER DAY 11/18/24 02/10/25 Rx gram/dose oral powder (Miralax) constipation #238 grams levalbuterol HCl 1.25 mg/3 mL 1.25 mg (3 mL) inhalation Q4H PRN 11/26/24 02/10/25 Rx solution for nebulization shortness of breath or wheezing or cough #75 mL clotrimazole 1 % topical cream 1 applic topical QID PRN Rash #45 12/02/24 02/10/25 Rx grams furosemide 10 mg/mL oral solution 10 mg feeding tube DIRECTED PRN 12/02/24 02/10/25 Rx Weight Gain #60 mL loperamide 2 mg capsule 2 mg feeding tube Q4H PRN Loose 12/02/24 02/10/25 Rx Stool #30 caps acetaminophen 160 mg/5 mL (5 mL) 640 mg (20 mL) feeding tube Q4 PRN 01/23/25 02/10/25 Rx oral suspension fever/headache/minor ache/pain #500 mL cetirizine 10 mg disintegrating 10 mg feeding tube QAM 01/25/25 02/10/25 History tablet cranberry extract 500 mg tablet 500 mg PO BID 01/25/25 02/10/25 History cyanocobalamin (vitamin B-12) 1,000 mcg feeding tube 2XWK 01/25/25 02/10/25 History 1,000 mcg tablet (Vitamin B-12) d-mannose 500 mg capsule 1,000 mg PO DAILY 01/25/25 02/10/25 History docusate sodium 50 mg/5 mL oral 100 mg feeding tube QAM 01/25/25 02/10/25 History liquid fluticasone propionate 50 2 spray intranasal QAM 01/25/25 02/10/25 History mcg/actuation nasal spray,suspension guaifenesin 100 mg/5 mL oral 100 mg feeding tube TID 01/25/25 02/10/25 History liquid (Chani-Tussin) nystatin 100,000 unit/gram topical 1 applic topical DAILY PRN 01/25/25 02/10/25 History powder Affected Peg site zinc oxide 13 % topical cream 1 applic topical BID Bilateral 01/25/25 02/10/25 History Buttock skin issue Lactobacillus acidophilus PO BID 02/10/25 02/10/25 History [Probiotic Acidophilus] aluminum-mag hydroxide-simethicone 30 ml feeding tube BID PRN UPSET 02/10/25 02/10/25 History 200 mg-200 mg-20 mg/5 mL oral susp STOMACH/VOMITING amoxicillin 875 mg-potassium 1 tab feeding tube BID 02/10/25 02/10/25 History clavulanate 125 mg tablet bisacodyl 10 mg rectal suppository 10 mg UT DAILY PRN constipation 02/10/25 02/10/25 History clozapine 25 mg tablet (Clozaril) 25 mg feeding tube HS #30 tabs 02/10/25 Rx neomycin-bacitracn Zn-polymyx 3.5 1 applic topical DAILY 02/10/25 02/10/25 History mg-400 unit-5,000 unit/gram top oint (Triple Antibiotic) fluocinonide-emollient 0.05 % 1 applic topical BID PRN rash #60 02/13/25 02/13/25 Rx topical cream grams nystatin 100,000 unit/gram topical 1 applic topical BID Abdomen twice 02/18/25 Rx powder (Nystop) daily #30 grams allopurinol 100 mg tablet 100 mg feeding tube BID #180 tabs 02/28/25 Rx diaper,brief,adult,disposable #216 ea 03/11/25 Rx ([employer] Plus Adult Briefs) Past Med/Surg History Problem List (Updated 04/06/25 @ 15:03 by Orlando Montiel MD) Catheter-associated urinary tract infection Acute hypernatremia Elevated hemidiaphragm Acute diastolic (congestive) heart failure Acute respiratory failure with hypoxia Acute hypoxemic respiratory failure Parapneumonic effusion Hypoxia (Acute) CKD (chronic kidney disease) stage 2, GFR 60-89 ml/min Infection due to extended spectrum beta lactamase (ESBL) producing Proteus mirabilis Seizure disorder (03/27/12) Aspiration pneumonitis Elevated liver function tests Microcephaly (Chronic) Myelodysplasia (myelodysplastic syndrome) Prediabetes Urinary retention Diarrhea Chronic indwelling Hendrix catheter (Chronic) Changed 01/24/2025 Congestive heart failure (Acute) Chronic rhinitis Constipation Anemia (Chronic) Thrombocytopenia (Chronic) Gingival and periodontal disease (Acute) Gait disturbance (Acute) Esophageal dyskinesia (Acute) Chronic PEG tube Edema (Acute) Absent kidney, acquired (Acute) Weight gain Bilateral lower extremity edema Cough Dysphagia Gout Medical History (Updated 04/06/25 @ 15:03 by Orlando Montiel MD) Pneumonia, aspiration Hypernatremia Hypokalemia Acute diastolic CHF (congestive heart failure) Surgical History History of craniotomy History of colonoscopy History of hernia repair History of esophagogastroduodenoscopy (EGD) History of cholecystectomy Family History Sister Microcephaly Intellectual disability Myelodysplasia (myelodysplastic syndrome) Father Cancer Myocardial infarction Other Family history non-contributory Denies family history of Ovarian cancer Prostate cancer Breast cancer Colorectal cancer Social History Smoking Status: Never smoker Second Hand Exposure: No; Do You Dip or Chew Tobacco: No; Hx Alcohol Use: No Hx Substance Use: No Preferred Language: Swedish Communication Ability: Unable Visual Impairment: No Limitations Hearing Ability: Normal Special Education Coordinator Required: No Beliefs That Will Affect Care: None marital status: Single Current Living Situation: Alone Current Living Situation Comment: caregiver current occupational status: disabled Feels Safe at Home: Yes Childhood Exposure to Second-Hand Smoke: No Dental Care, Regularly: Yes Physical Activity Frequency: 1-2 Times per Week Seatbelt Use: always Sunscreen Use: No Assistive Devices: Wheelchair Review of Systems 2 Review of Systems: The patient is nonverbal and cannot answer any questions regarding review of systems Physical Exam 2 Physical Exam: General-alert but nonverbal. No distress. No current fever HEENT-congenital microcephaly. Pupils equal and reactive to light, extraocular muscles intact Neck-no lymphadenopathy or thyromegaly, trachea midline Chest-clear to auscultation. No rales, wheezing or rhonchi Cardiac-regular rate and rhythm, normal S1 and S2 Abdomen-normal bowel sounds, no hepatosplenomegaly. PEG tube site intact, clean and dry Extremities-no cyanosis, clubbing, or edema Neuro-cranial nerves II through XII intact, motor and sensory function within normal limits, strength symmetrical, no focal deficits Psych-cannot assess. The patient is nonverbal Results & Data Results & Data Vital Signs (Past 12 Hours) Vital Signs Temp Pulse Pulse Resp BP BP Pulse Ox 04/06/25 14:36 68 04/06/25 14:16 36.5 C 04/06/25 14:15 36.5 C 64 17 119/68 96 04/06/25 14:08 66 17 99 04/06/25 12:42 35.1 C L 76 16 124/74 96 O2 Del Method 04/06/25 14:36 04/06/25 14:16 04/06/25 14:15 Room Air 04/06/25 14:08 Room Air 04/06/25 12:42 Room Air Laboratory Results 04/06/25 13:08 04/06/25 13:53 Code Status & VTE Plan Code Status DNR/DNI PG Care Time/CCT Total # of Minutes Spent Total Time Spent with Patient: Total time spent is greater than 50% in coordination of care (as documented) at patient's floor/unit and/or counseling patient: Coding Level of Care Code 14029 INT INP/OBS CARE 3/75MIN Diagnoses Catheter-associated urinary tract infection T83.511A; N39.0 Microcephaly Q02 Seizure disorder G40.909 Myelodysplasia (myelodysplastic syndrome) D46.9 Esophageal dyskinesia K22.4
--- NOTE | 2025-04-06 17:03 | XRay Report ---
Chest radiograph, one view History: Cough Comparison: January 29, 2025 Findings: Single AP view of the chest performed. Small right pleural effusion, appears decreased. There are patchy opacities in the lower lungs, right greater than left. No pneumothorax. The cardiomediastinal silhouette is within normal limits. The pulmonary vascularity is mildly indistinct especially on the right. No visualized bony or soft tissue abnormality. Impression: Small, focal patchy opacities in the lower lungs, right greater than left, which may be infectious, were not definitely seen on prior, noting the right lung was more obscured on prior by a larger pleural effusion. Electronically signed by Von Alexander 04-06-2025 5:03 PM
[2025-04-06] MEDS ORDERED: LEVALBUTEROL 1.25 MG/3 ML NEB INH PRN (17:05)
[2025-04-06] MEDS ORDERED: ACETAMINOPHEN SUSP 160 MG/5 ML UDC PEG PRN (17:05)
[2025-04-06 17:21] LABS: Chlamydia pneumoniae PCR Not Detected (NotDetected); Coronavirus 229E PCR Not Detected (NotDetected); Coronavirus CoV-2 (COVID19)PCR Not Detected (NotDetected); Coronavirus HKU1 PCR Not Detected (NotDetected); Coronavirus NL63 PCR Not Detected (NotDetected); Coronavirus OC43PCR Not Detected (NotDetected); Human Metapneumovirus PCR Not Detected (NotDetected); Parainfluenza Virus 1 PCR Not Detected (NotDetected); Parainfluenza Virus 2 PCR Not Detected (NotDetected); Parainfluenza Virus 3 PCR Not Detected (NotDetected); Parainfluenza Virus 4 PCR Not Detected (NotDetected); Respiratory Syncytial VirusPCR Not Detected (NotDetected); Rhinovirus/Enterovirus PCR Not Detected (NotDetected)
[2025-04-06 17:44] LABS: Hematocrit (blood only) 36.1 % (42.0-52.0); Hemoglobin 11.6 g/dl (14.0-18.0); Immature Granulocytes # (auto) 0.02 K/uL (0.01-0.20); Immature Granulocytes % (auto) 0.3 %; Mean Corpuscular Hemoglobin 32.0 pg (25.0-34.0); Mean Corpuscular Volume 99.7 fL (80.0-100.0); Platelet Count 162 K/uL (130-400); RDW Standard Deviation 49.9 fL (36.4-46.3); Red Blood Count 3.62 M/uL (4.70-6.10); White Blood Count 6.85 K/ul (4.8-10.8)
[2025-04-06] MEDS: HEPARIN SOD 5,000 UNIT/0.5 ML VIAL SQ SCH (21:31)
[2025-04-06] MEDS: MENTHOL-ZINC OXIDE 360 APPLN/120 GM TUBE EXT SCH (21:32)
[2025-04-06] MEDS: SACCHAROMYCES BOULARDII 250 MG CAP PO SCH (21:34)
[2025-04-07 09:13] LABS: Hematocrit (blood only) 34.8 % (42.0-52.0); Hemoglobin 11.3 g/dl (14.0-18.0); Immature Granulocytes # (auto) 0.03 K/uL (0.01-0.20); Immature Granulocytes % (auto) 0.6 %; Mean Corpuscular Hemoglobin 32.8 pg (25.0-34.0); Mean Corpuscular Volume 101.2 fL (80.0-100.0); Platelet Count 157 K/uL (130-400); RDW Standard Deviation 50.1 fL (36.4-46.3); Red Blood Count 3.44 M/uL (4.70-6.10); White Blood Count 5.09 K/ul (4.8-10.8)
[2025-04-07 09:38] LABS: Anion Gap 3.0 (3-11); Blood Urea Nitrogen 32.0 mg/dl (6-23); Calcium 10.0 mg/dl (8.6-10.3); Carbon Dioxide 31.0 mmol/L (21-32); Chloride 108.0 mmol/L (98-107); Creatinine Clr Calc Pharmacy 58.2 ml/min; Glucose 104.0 mg/dl (70-99(Fasting)); Potassium 4.4 mmol/L (3.5-5.1); Sodium 142.0 mmol/L (136-145)
[2025-04-07] MEDS: DOCUSATE SODIUM SYRUP 100 MG/10 ML UDC PEG SCH (10:03)
[2025-04-07] MEDS: CETIRIZINE HCL 10 MG TABLET PO SCH (10:03)
[2025-04-07] MEDS: ERTAPENEM 1000MG 1,000 MG/10 ML SYR IV SCH (10:04)
[2025-04-07] MEDS: FLUTICASONE PROPIONATE NA SPR 16 GM BTL NAE SCH (10:04)
[2025-04-07] MEDS: FIBERSOURCE HN 1.2 CAL 1000 ML BAG GT SCH (10:05)
--- NOTE | 2025-04-07 14:47 | Hospitalist Progress Note ---
"Date of Service April 07, 2025 Assessment & Plan (1) Catheter-associated urinary tract infection: (2) Microcephaly: (3) Esophageal dyskinesia: (4) Myelodysplasia (myelodysplastic syndrome): (5) Seizure disorder: Plan 70-year-old male with past medical history of microcephaly, myelodysplastic syndrome, chronic indwelling Hendrix catheter, recurrent UTIs, esophageal dyskinesia dependent on PEG tube feeding, seizure disorder, and aspiration pneumonia who presented to the hospital after being informed his outpatient urine culture was growing multidrug-resistant organisms requiring IV antibiotics. Unfortunately, he cannot return to his [facility] with an IV, so coordination of IV antibiotics at [facility] is not an option as it would require patient being stuck for IV initiation daily. He will remain inpatient until completion of 5 days worth of IV ertapenem. #MDR CAUTI | Chronic Hendrix catheter - urine culture with Morganella morganii (sensitive to amikacin, cefoxitin, ertapenem, meropenem) and Citrobacter freundii complex (resistant to Bactrim) - Continue Ertapenem 1 g Q24h x 5 days (04/06 was day 1) - Hendrix catheter management #Microcephaly | Esophageal dyskinesia - Congenital. Nonverbal at baseline. Continue PEG tube feeding and supportive care #History of seizure disorder without recent recurrent episodes, not on antiepileptics. If acute seizure activity, use Ativan 2-4 mg IV every 5 minutes for acute treatment and load with Keppra #Myelodysplastic syndrome Hgb stable at baseline. No acute change in management of MDS at this time Dispo: Anticipate return to [facility]group home when he completes 5 days of IV ertapenem VTE PPx: Heparin Discussed discharge planning with case management Updated caregiver at bedside Admission and Anticipated Discharge Date Admission Date: April 06, 2025 Supervising Physician Co-Signing Physician Notes chart reviewed, case d/w S Hortencia BARNES, as above. Subjective Patient seen and evaluated in bedside chair with his caregiver present. He appears well and is pleasantly watching videos on his iPad. His caregiver reports he appears to be at his baseline. We discussed the option of IV antibiotics at [facility], but unfortunately his personal group home does not allow patients to have IVs so he would need a new IV placed daily at [facility]. Decision was made to continue his hospital stay for IV antibiotics inpatient. No additional complaints or concerns at this time. Review of Systems Review of Systems: Unobtainable due to cognitive status Physical Exam Physical Exam: General: No acute distress, nondiaphoretic. Skin: Warm, dry. No rashes or peripheral edema noted. Cardiac: Regular rate and rhythm without murmurs gallops or rubs. Pulm: Clear to auscultation bilaterally without wheezes, rales or rhonchi. Normal respiratory effort. 100% on 2 L NC. Abdominal: Soft, nontender, nondistended. Bowel sounds present. PEG tube site clean, dry, intact. Neuro: Alert and oriented to baseline per his caregiver at bedside. Nonverbal at baseline. Normal motor and sensory function. No focal neurological deficits noted. Results & Data Results & Data Vital Signs (Past 12 Hours) Vital Signs Temp Pulse Resp BP Pulse Ox O2 Del Method O2 Flow Rate 04/07/25 11:52 Nasal Cannula 2 04/07/25 11:45 97.9 F 70 17 122/70 100 Room Air 2 04/07/25 07:21 97.9 F 63 18 115/54 L 97 Nasal Cannula 2 Laboratory Results Reviewed CBC with differential Reviewed BMP Reviewed urine culture Reviewed blood cultures Diagnostic Findings Reviewed CXR PG Care Time/CCT Total # of Minutes Spent Total Time Spent with Patient: Total time spent is greater than 50% in coordination of care (as documented) at patient's floor/unit and/or counseling patient: Coding Level of Care Code 02386 SUB INP/OBS CARE 3/50MIN Diagnoses Catheter-associated urinary tract infection T83.511A; N39.0 Microcephaly Q02 Esophageal dyskinesia K22.4 Myelodysplasia (myelodysplastic syndrome) D46.9 Seizure disorder G40.909"
[2025-04-07] MEDS ORDERED: FIBERSOURCE HN 1.2 CAL 1000 ML BAG GT SCH (21:00)
[2025-04-08 08:21] LABS: Hematocrit (blood only) 35.4 % (42.0-52.0); Hemoglobin 11.1 g/dl (14.0-18.0); Immature Granulocytes # (auto) 0.02 K/uL (0.01-0.20); Immature Granulocytes % (auto) 0.4 %; Mean Corpuscular Hemoglobin 31.8 pg (25.0-34.0); Mean Corpuscular Volume 101.4 fL (80.0-100.0); Platelet Count 153 K/uL (130-400); RDW Standard Deviation 50.4 fL (36.4-46.3); Red Blood Count 3.49 M/uL (4.70-6.10); White Blood Count 4.71 K/ul (4.8-10.8)
[2025-04-08 09:20] LABS: Anion Gap 5.0 (3-11); Calcium 9.9 mg/dl (8.6-10.3); Carbon Dioxide 30.0 mmol/L (21-32); Chloride 109.0 mmol/L (98-107); Potassium 4.5 mmol/L (3.5-5.1); Sodium 144.0 mmol/L (136-145)
[2025-04-08 09:25] LABS: Blood Urea Nitrogen 33.0 mg/dl (6-23); Creatinine Clr Calc Pharmacy 57.6 ml/min; Glucose 92.0 mg/dl (70-99(Fasting))
--- NOTE | 2025-04-08 16:28 | Hospitalist Progress Note ---
"Date of Service April 08, 2025 Assessment & Plan (1) Catheter-associated urinary tract infection: (2) Microcephaly: (3) Esophageal dyskinesia: (4) Myelodysplasia (myelodysplastic syndrome): (5) Seizure disorder: Plan 70-year-old male with past medical history of microcephaly, myelodysplastic syndrome, chronic indwelling Hendrix catheter, recurrent UTIs, esophageal dyskinesia dependent on PEG tube feeding, seizure disorder, and aspiration pneumonia who presented to the hospital after being informed his outpatient urine culture was growing multidrug-resistant organisms requiring IV antibiotics. Unfortunately, he cannot return to his [facility] with an IV, so coordination of IV antibiotics at [facility] is not an option as it would require patient being stuck for IV initiation daily. He will remain inpatient until completion of 5 days worth of IV ertapenem. #MDR CAUTI | Chronic Hendrix catheter - urine culture with Morganella morganii (sensitive to amikacin, cefoxitin, ertapenem, meropenem) and Citrobacter freundii complex (resistant to Bactrim) - Continue Ertapenem 1 g Q24h x 5 days (04/06 was day 1) - Hendrix catheter management - Blood cultures negative >48 hours #Microcephaly | Esophageal dyskinesia - Congenital. Nonverbal at baseline. Continue PEG tube feeding and supportive care #History of seizure disorder without recent recurrent episodes, not on antiepileptics. If acute seizure activity, use Ativan 2-4 mg IV every 5 minutes for acute treatment and load with Keppra #Myelodysplastic syndrome Hgb stable at baseline. No acute change in management of MDS at this time Dispo: Anticipate return to [facility] on 04/10 when he completes 5 days of IV ertapenem VTE PPx: Heparin Updated caregiver at bedside Admission and Anticipated Discharge Date Admission Date: April 06, 2025 Supervising Physician Co-Signing Physician Notes chart reviewed, case d/w S Hortencia BARNES, as above. Subjective Patient seen evaluated in his bedside chair with his caregiver present. He appears to be comfortably watching TV at this time. Caregiver reports he is at his baseline and denies any concerns or complaints at this time. I informed her of the plan to discharge him on 04/10 after his fifth dose of IV ertapenem. Physical Exam Physical Exam: General: No acute distress, nondiaphoretic. Skin: Warm, dry. No rashes or peripheral edema noted. Cardiac: Well-perfused. Rate in 60s. Pulm: Normal respiratory effort. 96% on room air. : Hendrix draining clear yellow urine. Neuro: Alert and oriented to baseline per his caregiver at bedside. Nonverbal at baseline. Normal motor and sensory function. No focal neurological deficits noted. Results & Data Results & Data Vital Signs (Past 12 Hours) Vital Signs Temp Pulse Resp BP Pulse Ox O2 Del Method 04/08/25 14:15 66 18 123/76 96 Room Air 04/08/25 10:46 Room Air 04/08/25 09:15 97.2 F L 82 14 118/72 96 Room Air Laboratory Results Reviewed CBC with differential Reviewed BMP Reviewed blood cultures PG Care Time/CCT Total # of Minutes Spent Total Time Spent with Patient: Total time spent is greater than 50% in coordination of care (as documented) at patient's floor/unit and/or counseling patient: Coding Level of Care Code 27496 SUB INP/OBS CARE 2/35MIN Diagnoses Catheter-associated urinary tract infection T83.511A; N39.0 Microcephaly Q02 Esophageal dyskinesia K22.4 Myelodysplasia (myelodysplastic syndrome) D46.9 Seizure disorder G40.909"
[2025-04-09 07:02] LABS: Hematocrit (blood only) 33.9 % (42.0-52.0); Hemoglobin 10.8 g/dl (14.0-18.0); Immature Granulocytes # (auto) 0.01 K/uL (0.01-0.20); Immature Granulocytes % (auto) 0.2 %; Mean Corpuscular Hemoglobin 31.9 pg (25.0-34.0); Mean Corpuscular Volume 100.0 fL (80.0-100.0); Platelet Count 142 K/uL (130-400); RDW Standard Deviation 49.8 fL (36.4-46.3); Red Blood Count 3.39 M/uL (4.70-6.10); White Blood Count 4.20 K/ul (4.8-10.8)
[2025-04-09 07:25] LABS: Anion Gap 3.0 (3-11); Blood Urea Nitrogen 34.0 mg/dl (6-23); Calcium 9.8 mg/dl (8.6-10.3); Carbon Dioxide 32.0 mmol/L (21-32); Chloride 107.0 mmol/L (98-107); Creatinine Clr Calc Pharmacy 62.2 ml/min; Glucose 87.0 mg/dl (70-99(Fasting)); Potassium 4.2 mmol/L (3.5-5.1); Sodium 142.0 mmol/L (136-145)
--- NOTE | 2025-04-09 12:48 | Hospitalist Progress Note ---
"Date of Service April 09, 2025 Assessment & Plan (1) Catheter-associated urinary tract infection: (2) Microcephaly: (3) Esophageal dyskinesia: (4) Myelodysplasia (myelodysplastic syndrome): (5) Seizure disorder: Plan 70-year-old male with past medical history of microcephaly, myelodysplastic syndrome, chronic indwelling Hendrix catheter, recurrent UTIs, esophageal dyskinesia dependent on PEG tube feeding, seizure disorder, and aspiration pneumonia who presented to the hospital after being informed his outpatient urine culture was growing multidrug-resistant organisms requiring IV antibiotics. Unfortunately, he cannot return to his [facility] with an IV, so coordination of IV antibiotics at [facility] is not an option as it would require patient being stuck for IV initiation daily. He will remain inpatient until completion of 5 days worth of IV ertapenem. #MDR CAUTI | Chronic Hendrix catheter - urine culture with Morganella morganii (sensitive to amikacin, cefoxitin, ertapenem, meropenem) and Citrobacter freundii complex (resistant to Bactrim) - Continue Ertapenem 1 g IV Q24h x 5 days (04/06 was day 1). Plan to discharge tomorrow 04/10 after completion of fifth dose of IV antibiotic - Hendrix catheter management - Blood cultures negative >48 hours #Microcephaly | Esophageal dyskinesia - Congenital. Nonverbal at baseline. Continue PEG tube feeding and supportive care. Consulted registered dietitian for nutritional assessment; adjustments in tube feeds per RD #History of seizure disorder without recent recurrent episodes, not on antiepileptics. If acute seizure activity, use Ativan 2-4 mg IV every 5 minutes for acute treatment and load with Keppra #Myelodysplastic syndrome Hgb stable at baseline. No acute change in management of MDS at this time Dispo: Anticipate return to [facility] on 04/10 when he completes 5 days of IV ertapenem VTE PPx: Heparin Updated caregiver at bedside Consulted and discussed case with RD Admission and Anticipated Discharge Date Admission Date: April 06, 2025 Supervising Physician Co-Signing Physician Notes chart reviewed, case d/w S Hortencia BRANES, as above. Subjective Patient seen and evaluated in bedside chair with his caregiver present. He is extra happy today because he was visited by one of the therapy dogs. We discussed that RD is making some adjustments to his tube feeds. Caregiver denies any complaints or concerns at this time. Plan to discharge tomorrow after IV antibiotics complete. Physical Exam Physical Exam: General: No acute distress, nondiaphoretic. Skin: Warm, dry. No rashes or peripheral edema noted. Cardiac: Well-perfused. Rate in 60s. Pulm: Normal respiratory effort. 93% on room air. : Hendrix draining clear yellow urine. Neuro: Alert and oriented to baseline per his caregiver at bedside. Nonverbal at baseline. Normal motor and sensory function. No focal neurological deficits noted. Results & Data Results & Data Vital Signs (Past 12 Hours) Vital Signs Temp Pulse Resp BP Pulse Ox O2 Del Method 04/09/25 08:50 97.3 F L 68 15 111/55 L 93 Room Air Laboratory Results Reviewed CBC with differential Reviewed BMP PG Care Time/CCT Total # of Minutes Spent Total Time Spent with Patient: Total time spent is greater than 50% in coordination of care (as documented) at patient's floor/unit and/or counseling patient: Coding Level of Care Code 78528 SUB INP/OBS CARE 3/50MIN Diagnoses Catheter-associated urinary tract infection T83.511A; N39.0 Microcephaly Q02 Esophageal dyskinesia K22.4 Myelodysplasia (myelodysplastic syndrome) D46.9 Seizure disorder G40.909"
[2025-04-09] MEDS: FIBERSOURCE HN 1.2 CAL 1000 ML BAG GT SCH (12:58)
[2025-04-09] MEDS ORDERED: TUBE FEEDING WATER FLUSH GT SCH (13:00)
[2025-04-10 07:36] VITALS: BP 154/57; PULSE 76; RESP 20; TEMP 97.5; O2SAT 93
--- NOTE | 2025-04-10 11:16 | Discharge Summary ---
"Discharge Summary Date of Service April 10, 2025 Principal Dx & Hospital Course #1 = Principal Diagnosis (1) Catheter-associated urinary tract infection: (2) Microcephaly: (3) Esophageal dyskinesia: (4) Myelodysplasia (myelodysplastic syndrome): (5) Seizure disorder: Plan 70-year-old male with past medical history of microcephaly, myelodysplastic syndrome, chronic indwelling Hendrix catheter, recurrent UTIs, esophageal dyskine valeria dependent on PEG tube feeding, seizure disorder, and aspiration pneumonia who presented to the hospital after being informed his outpatient urine culture was growing multidrug-resistant organisms requiring IV antibiotics. Unfortunately, he cannot return to his [facility] with an IV, so coordination of IV antibiotics at [facility] is not an option as it would require patient being stuck for IV initiation daily. He will remain inpatient until completion of 5 days worth of IV ertapenem. #MDR CAUTI | Chronic Hendrix catheter - urine culture with Morganella morganii (sensitive to amikacin, cefoxitin, ertapenem, meropenem) and Citrobacter freundii complex (resistant to Bactrim) - Treated with Ertapenem 1 g IV Q24h x 5 days - Hendrix catheter exchanged on 04/10 prior to discharge - Blood cultures negative >48 hours #Microcephaly | Esophageal dyskinesia - Congenital. Nonverbal at baseline. Continue PEG tube feeding and supportive care. Consulted registered dietitian for nutritional assessment; adjustments in tube feeds per RD #History of seizure disorder without recent recurrent episodes, not on antiepileptics #Myelodysplastic syndrome Hgb stable at baseline. No acute change in management of MDS at this time Dispo: Discharged to [facility] on 04/10 VTE PPx: Heparin Admission HPI Per Admitting Provider 70-year-old white male with microcephaly who is PEG tube feeding dependent and has chronic indwelling Hendrix catheter. He has a recurrent catheter associated UTI with resistant organisms consisting of Morganella and Citrobacter. He is admitted for IV ertapenem treatment. Currently no fever. No gross hematuria. Discharge Exam General: No acute distress, nondiaphoretic. Skin: Warm, dry. No rashes or peripheral edema noted. Cardiac: Well-perfused. Rate in 70s. Pulm: Normal respiratory effort. 93% on room air. : Hendrix draining clear yellow urine. Neuro: Alert and oriented to baseline per his caregiver at bedside. Nonverbal at baseline. Normal motor and sensory function. No focal neurological deficits noted. Discharge Plan Discharge Items Patient Disposition: Personal Half-Way Reason For Visit: RESISTANT ORGANISM CAUTI Discharge Diagnosis: Multidrug-resistant catheter associated UTI Condition on Discharge: Fair Activity: Resume your previous activity Non-emergency contact: Primary Care Provider Call non-emergency contact if: you have any medication questions and your symptoms worsen Follow-up/Referrals: Sharon Montero CRNP [Primary Care Provider] - 04/17/25 11:30 am (Follow-up in 1-2 weeks) Diet: Nothing by Mouth and Other - See Diet Comment Diet Comment: Continue tube feeds Addtl Attending Provider Instructions: Care of Mr. Simms, Admitted for multidrug-resistant catheter associated UTI. Treated with 5 days of IV ertapenem, no further antibiotics needed at this time. Hendrix catheter exchanged on day of discharge, 04/10/2025. Continue medication/tube feeds. Please follow-up with PCP in 1-2 weeks. Pending Studies at Discharge: Yes Studies:: Blood cultures. Negative >48 hours Stand-Alone Forms: My [employer], Smoking Cessation Skilled Items Patient informed of condition?: Yes DNR: No Discharge Level of Care: Other Communicable Disease: No Discharge Prognosis: Stable Lines: None Urinary Catheter: Yes Medications and DC Order Prescriptions: Continued (DME) nebulizer accessories Kit See Rx Instructions .ROUTE .MEDSUPPLY Qty: 1 0RF Rx Instructions: NEBULIZER, FACE MASK, AND SUPPLIES DX: R05 (DME) diaper,brief,adult,disposable Misc See Dose Instructions .ROUTE .MEDSUPPLY Qty: 240 11RF Dose Instruction: As directed Rx Instructions: As directed adult LARGE 4-8 per day clozapine 50 mg tablet 50 mg Feeding Tube QAM Rx Instructions: crush and dissolve in 5 cc's of water, administer via g-tube chlorhexidine gluconate [Peridex] 0.12 % mouthwash 15 ml BUCCAL BID Qty: 473 4RF Saccharomyces boulardii 250 mg capsule 250 mg feeding tube BID Qty: 60 11RF (DME) compress.stocking,knee,reg,med Misc See Rx Instructions .Route Qty: 2 0RF Rx Instructions: As directed polyethylene glycol 3350 [Miralax] 17 gram/dose powder 17 g feeding tube Q OTHER DAY Qty: 238 5RF Rx Instructions: one cap full mixed with 8 oz of water every other day; for constipation, administered via feeding tube. Hold for loose stools levalbuterol HCl 1.25 mg/3 mL solution for nebulization 1.25 mg INH Q4H PRN (Reason: shortness of breath or wheezing or cough) Qty: 75 5RF Rx Instructions: Nebulizer Lactobacillus acidophilus [Probiotic Acidophilus] PO BID Rx Instructions: Administer 1 Tab into PEG tube 2 times a day. Triple Antibiotic 3.5mg-400 unit- 5,000 unit/gram ointment 1 applic topical DAILY Rx Instructions: Apply topically to affected area once. Apply to as ordered alum-mag hydroxide-simeth 200-200-20 mg/5 mL suspension 30 ml feeding tube BID PRN (Reason: UPSET STOMACH/VOMITING) Patient Comments: CONFIRMED W/ NURSE AT [facility] PT STILL NEEDS/TAKES THIS 02/10/25 Rx Instructions: administer between meals and at bedtime bisacodyl 10 mg suppository 10 mg NV DAILY PRN (Reason: constipation) Patient Comments: CONFIRMED W/ NURSE AT [facility]ILL[facility] PT STILL NEEDS/TAKES THIS 02/10/25 clozapine [Clozaril] 25 mg tablet 25 mg Feeding Tube HS Qty: 30 0RF Rx Instructions: TOTAL DOSE 125 MG--TAKES WITH 100 MG TAB. crush and dissolve in 5 cc's of water, administer via g-tube. nystatin [Nystop] 100,000 unit/gram powder 1 applic TOPICAL BID Qty: 30 0RF allopurinol 100 mg tablet 100 mg feeding tube BID Qty: 180 3RF Rx Instructions: 1 tablet twice daily, dissolve in 5 ml's of water and give via feeding tube for gout; (DME) [employer] Plus Adult Briefs [facility] See Rx Instructions .Route Qty: 216 5RF Rx Instructions: change 4-6 times daily (DME) sheep skin heel protectors See Rx Instructions .Route .MEDSUPPLY Qty: 1 5RF Rx Instructions: apply to each heel Glucerna 1.5 Kevin 0.08-1.5 gram-kcal/mL liquid See Rx Instructions .ROUTE .COMPLEX Qty: 960 11RF Rx Instructions: 8oz via PEG QID. Flush PEG with 90mL water before and after each bolus acetaminophen 160 mg/5 mL (5 mL) suspension 640 mg Feeding Tube Q4 MDD 3 GRAMS/24 HOURS PRN (Reason: fever/headache/minor ache/pain) Qty: 500 3RF fluocinonide-emollient 0.05 % cream 1 applic topical BID PRN (Reason: rash) Qty: 60 1RF Rx Instructions: PRN FOR RASH ABD BINDER furosemide 10 mg/mL solution 10 mg feeding tube DIRECTED PRN (Reason: Weight Gain) Qty: 60 3RF Rx Instructions: 10 mg PO PRN WEIGHT GAIN EQUAL OR GREATER THAN 3LBS IN 3 DAYS OR LESS; administer via g-tube. clotrimazole 1 % cream 1 applic topical QID PRN (Reason: Rash) Qty: 45 5RF Rx Instructions: Apply to rash on legs 4 times per day PRN for rash loperamide 2 mg capsule 2 mg feeding tube Q4H MDD 8 MG/24 HOURS PRN (Reason: Loose Stool) Qty: 30 5RF Rx Instructions: administer after each loose stool until symptoms controlled; do not exceed 8 mg per 24 hrs pediatric multivitamin Tablet,Chewable 1 tab feeding tube QAM Rx Instructions: DISSOLVE IN 5 ML WATER guaifenesin [Chani-Tussin] 100 mg/5 mL Liquid 100 mg feeding tube TID nystatin 100,000 unit/gram powder 1 applic TOPICAL DAILY PRN (Reason: Affected Peg site) cranberry extract 500 mg Tablet 500 mg PO BID Rx Instructions: Feeding tube - administer with meals docusate sodium 50 mg/5 mL liquid 100 mg feeding tube QAM cyanocobalamin (vitamin B-12) [Vitamin B-12] 1,000 mcg tablet 1,000 mcg Feeding Tube 2XWK Rx Instructions: crush and dissolve in 30ml of water, administer via g-tube on Monday and fluticasone propionate 50 mcg/actuation spray,suspension 2 spray intranasal QAM Rx Instructions: administer into each nostril zinc oxide 13 % cream 1 applic TOPICAL BID cetirizine 10 mg tablet,disintegrating 10 mg feeding tube QAM Rx Instructions: Crush and dissolve in 5 cc's of water, administer via g-tube d-mannose 500 mg capsule 1,000 mg PO DAILY Rx Instructions: Feeding Tube clozapine 100 mg tablet 100 mg feeding tube HS Rx Instructions: TOTAL DOSE 125 MG--TAKES WITH 25 MG TAB. Discontinued amoxicillin-pot clavulanate 875-125 mg tablet 1 tab feeding tube BID Patient Comments: [place] [facility] [place]/ NURSE AT [facility] ON 02/10/25 Rx Instructions: Administer 1 Tablet into PEG tube in the morning and 1 Tablet before bedtime. Do all this for 19 days Discharge Orders: Discharge Order (Routine); Ordered 04/10/25 Ordered By: Merissa Peoples/Other Patient Handouts: UTIs Catheter Linked Admission Data Admit Date/Time: 04/06/25 14:49 Attending Provider: Jeronimo Hoover Admit Provider: Orlando Montiel Primary Care Provider: Sharon Montero Other Providers: Orlando Montiel Other Interventions: Discharge Summary Assessment (RN) Last Done: 04/10/25 10:55 Hospital Stay Data Consultations 04/06/25 14:18 ED Decision to Admit Stat Diagnostic Imagining Performed Chest X-Ray 04/06/25 16:18 Chest radiograph, one view History: Cough Comparison: January 29, 2025 Findings: Single AP view of the chest performed. Small right pleural effusion, appears decreased. There are patchy opacities in the lower lungs, right greater than left. No pneumothorax. The cardiomediastinal silhouette is within normal limits. The pulmonary vascularity is mildly indistinct especially on the right. No visualized bony or soft tissue abnormality. Impression: Small, focal patchy opacities in the lower lungs, right greater than left, which may be infectious, were not definitely seen on prior, noting the right lung was more obscured on prior by a larger pleural effusion. Electronically signed by Von Alexander 04-06-2025 5:03 PM Pending Results Patient Have Any Pending Studies at Discharge: Yes Discharge Instructions Given to Patient (Per Discharging Provider) Care of Mr. Simms, Admitted for multidrug-resistant catheter associated UTI. Treated with 5 days of IV ertapenem, no further antibiotics needed at this time. Hendrix catheter ex changed on day of discharge, 04/10/2025. Continue medication/tube feeds. Please follow-up with PCP in 1-2 weeks. Supervising Physician Co-Signing Physician Notes chart reviewed, case d/w S Hortencia BARNES, as above. Total Time Total Time Spent Total Time Spent (In Minutes): Greater than 30 minutes spent completing this discharge process including direct patient care, medication reconciliation, documentation, review of labs and images, and coordination of care. Coding Level of Care Code 65069 INP/OBS DISCH >30 MIN Diagnoses Catheter-associated urinary tract infection T83.511A; N39.0 Microcephaly Q02 Esophageal dyskinesia K22.4 Myelodysplasia (myelodysplastic syndrome) D46.9 Seizure disorder G40.909"
== END 2025-04-10 11:20 | disposition home or self-care (01) | DRG 699 ==
LOC: SUATTDRO → ED 12:38 → SUATTDRO 14:49 → 3W 14:49

== ENCOUNTER 2025-05-04 20:48 | Inpatient (IN) ==
[2025-05-04 21:37] LABS: Hematocrit (blood only) 37.3 % (42.0-52.0); Hemoglobin 12.0 g/dl (14.0-18.0); Immature Granulocytes # (auto) 0.03 K/uL (0.01-0.20); Immature Granulocytes % (auto) 0.4 %; Mean Corpuscular Hemoglobin 31.9 pg (25.0-34.0); Mean Corpuscular Volume 99.2 fL (80.0-100.0); Platelet Count 133 K/uL (130-400); RDW Standard Deviation 49.5 fL (36.4-46.3); Red Blood Count 3.76 M/uL (4.70-6.10); White Blood Count 6.69 K/ul (4.8-10.8)
[2025-05-04] MEDS ORDERED: VANCOMYCIN CONSULT ACTIVE PRN (21:46)
[2025-05-04 21:54] LABS: Alanine Aminotransferase 98.0 U/L (7-52); Albumin Globulin Ratio 0.8 (0.9-2); Alkaline Phosphatase 155.0 U/L (34-104); Anion Gap 5.0 (3-11); Bilirubin,Total 0.3 mg/dl (0.2-1.0); Blood Urea Nitrogen 50.0 mg/dl (6-23); Calcium 10.0 mg/dl (8.6-10.3); Carbon Dioxide 29.0 mmol/L (21-32); Chloride 101.0 mmol/L (98-107); Creatinine Clr Calc Pharmacy 50.9 ml/min; Globulin 4.7 gm/dl (2.5-4.0); Glucose 130.0 mg/dl (70-99(Fasting)); Potassium 4.2 mmol/L (3.5-5.1); Sodium 135.0 mmol/L (136-145); Total Protein 8.3 gm/dl (6.0-8.3)
[2025-05-04 21:55] LABS: Influenza A virus by PCR Negative (Neg); Influenza B virus by PCR Negative (Neg); SARS CoV2 RNA(COVID-19) Ceph NEGATIVE (Negative)
[2025-05-04] MEDS: SODIUM CHLORIDE 0.9% 1,000 ML IV ONE (22:06)
[2025-05-04] MEDS: ALBUT/IPRATROP 3MG/0.5MG NEB 3 ML VIAL NEB STA (22:13)
[2025-05-04] MEDS: PIPERACILLIN/TAZOBACTAM 4.5 GM/100 ML BAG IV ONE (22:13)
--- NOTE | 2025-05-04 22:16 | Emergency Department Note ---
History of Present Illness General Chief complaint: Cough Stated complaint: REF BY MD; WHEEZING, COUGH -HX OF RECENT PNEUMONIA Time Seen by Provider: 05/04/25 21:26 History of Present Illness 70-year-old white male with microcephaly who is PEG tube feeding dependent and has chronic indwelling Hendrix catheter presents the ER for worsening breathing issues he is currently on Augmentin by the PCP for pneumonia. Patient is from [facility]. He is nonverbal. History is obtained from the home care rn. Patient was given a DuoNeb and his antibiotics. He has a history of aspiration pneumonia also. Unsure of fever. No vomiting or diarrhea. Home Medications Medication Instructions Recorded Confirmed Type nebulizer accessories #1 ea 07/30/20 05/04/25 Rx sheep skin heel protectors #1 ea 11/11/21 05/04/25 Rx diaper,brief,adult,disposable #240 ea 01/11/22 05/04/25 Rx clozapine 50 mg tablet 50 mg feeding tube QAM 10/27/22 05/04/25 History chlorhexidine gluconate 0.12 % 15 ml buccal BID #473 mL 12/01/23 05/04/25 Rx mouthwash (Peridex) Saccharomyces boulardii 250 mg 250 mg feeding tube BID #60 caps 12/04/23 05/04/25 Rx capsule compress.stocking,knee,reg,med #2 ea 12/18/23 05/04/25 Rx clozapine 100 mg tablet 100 mg feeding tube HS 01/08/24 05/04/25 History pediatric multivitamin 1 tab feeding tube QAM 01/11/24 05/04/25 History nutrition tx glu See Rx Instructions .Route 06/06/24 05/04/25 Rx intol,lac-free,soy-fiber 0.08 .COMPLEX #960 oz gram-1.5 kcal/mL liquid (Glucerna 1.5 Kevin) polyethylene glycol 3350 17 17 g feeding tube Q OTHER DAY 11/18/24 05/04/25 Rx gram/dose oral powder (Miralax) constipation #238 grams levalbuterol HCl 1.25 mg/3 mL 1.25 mg (3 mL) inhalation Q4H PRN 11/26/24 05/04/25 Rx solution for nebulization shortness of breath or wheezing or cough #75 mL clotrimazole 1 % topical cream 1 applic topical QID PRN Rash #45 12/02/24 05/04/25 Rx grams furosemide 10 mg/mL oral solution 10 mg feeding tube DIRECTED PRN 12/02/24 05/04/25 Rx Weight Gain #60 mL loperamide 2 mg capsule 2 mg feeding tube Q4H PRN Loose 12/02/24 05/04/25 Rx Stool #30 caps acetaminophen 160 mg/5 mL (5 mL) 640 mg (20 mL) feeding tube Q4 PRN 01/23/25 05/04/25 Rx oral suspension fever/headache/minor ache/pain #500 mL cyanocobalamin (vitamin B-12) 1,000 mcg feeding tube 2XWK 01/25/25 05/04/25 History 1,000 mcg tablet (Vitamin B-12) docusate sodium 50 mg/5 mL oral 100 mg feeding tube QAM 01/25/25 05/04/25 History liquid fluticasone propionate 50 2 spray intranasal QAM 01/25/25 05/04/25 History mcg/actuation nasal spray,suspension guaifenesin 100 mg/5 mL oral 100 mg feeding tube TID 01/25/25 05/04/25 History liquid (Chani-Tussin) zinc oxide 13 % topical cream 1 applic topical BID Bilateral 01/25/25 05/04/25 History Buttock skin issue aluminum-mag hydroxide-simethicone 30 ml feeding tube BID PRN UPSET 02/10/25 05/04/25 History 200 mg-200 mg-20 mg/5 mL oral susp STOMACH/VOMITING bisacodyl 10 mg rectal suppository 10 mg NC DAILY PRN constipation 02/10/25 05/04/25 History clozapine 25 mg tablet (Clozaril) 25 mg feeding tube HS #30 tabs 02/10/25 05/04/25 Rx fluocinonide-emollient 0.05 % 1 applic topical BID PRN rash #60 02/13/25 05/04/25 Rx topical cream grams nystatin 100,000 unit/gram topical 1 applic topical BID Abdomen twice 02/18/25 05/04/25 Rx powder (Nystop) daily #30 grams allopurinol 100 mg tablet 100 mg feeding tube BID #180 tabs 02/28/25 05/04/25 Rx diaper,brief,adult,disposable #216 ea 03/11/25 05/04/25 Rx ([place] Plus Adult Briefs) Azo D-Mannose 120 2 cap feeding tube DAILY 05/04/25 05/04/25 History cetirizine 10 mg chewable tablet 10 mg feeding tube DAILY 05/04/25 05/04/25 History (Zyrtec) cranberry 500 mg capsule 500 mg feeding tube BIDM 05/04/25 05/04/25 History Allergies Allergy/AdvReac Type Severity Reaction Status Date / Time glycopyrrolate Allergy Severe TONGUE Verified 02/13/25 14:37 SWELLING trazodone Allergy Severe SWELLING Verified 02/13/25 14:37 OF TONGUE & EXTREMITIES, DIFFICULTY BREATHING. lithium Allergy Intermediate EXCESSIVE Verified 02/13/25 14:37 DRINKING, DECREASED APPETITE & VERBALIZATIONS risperidone Allergy Intermediate POSSIBLE Verified 02/13/25 14:37 NEUROLEPTIC MALIGNANCY SYNDROME amoxicillin [From Augmentin] Allergy Mild Rash Verified 02/13/25 14:37 clavulanic acid Allergy Mild Rash Verified 02/13/25 14:37 [From Augmentin] Macrolide Antibiotics Allergy Mild RASH Verified 02/13/25 14:37 belladonna alkaloids Allergy Unknown Unknown Verified 02/13/25 14:37 clarithromycin Allergy Unknown Unknown Verified 02/13/25 14:37 metoclopramide Allergy Unknown PT TAKES Verified 02/13/25 14:37 AT HOME Phenylpiperazine Allergy Unknown Unknown - Unverified 02/13/25 14:37 Antidepressant On med list from [facility] aripiprazole AdvReac Intermediate HYPERACTIVITY Verified 02/13/25 14:37 & INSOMNIA Anticholinergics Allergy Unknown Unknown - Uncoded 02/13/25 14:37 On med list from [facility] Past Med/Surg History Problem List (Updated 05/05/25 @ 00:46 by Nat Tan PA-C) Pneumonia (Acute) Transaminitis Acute hypernatremia Elevated hemidiaphragm Acute diastolic (congestive) heart failure Acute respiratory failure with hypoxia Acute hypoxemic respiratory failure Parapneumonic effusion Hypoxia (Acute) CKD (chronic kidney disease) stage 2, GFR 60-89 ml/min (Acute) Infection due to extended spectrum beta lactamase (ESBL) producing Proteus mirabilis Seizure disorder (03/27/12) Aspiration pneumonitis Elevated liver function tests (Acute) Microcephaly (Chronic) Myelodysplasia (myelodysplastic syndrome) Prediabetes Urinary retention Diarrhea Chronic indwelling Hendrix catheter (Chronic) Changed 01/24/2025 Congestive heart failure (Acute) Chronic rhinitis Constipation Anemia (Chronic) Thrombocytopenia (Chronic) Gingival and periodontal disease (Acute) Gait disturbance (Acute) Esophageal dyskinesia (Acute) Chronic PEG tube Edema (Acute) Absent kidney, acquired (Acute) Weight gain Bilateral lower extremity edema Cough Dysphagia Gout Medical History UTI (urinary tract infection) Catheter-associated urinary tract infection Pneumonia, aspiration Hypernatremia Hypokalemia Acute diastolic CHF (congestive heart failure) Surgical History History of craniotomy History of colonoscopy History of hernia repair History of esophagogastroduodenoscopy (EGD) History of cholecystectomy Family History Sister Microcephaly Intellectual disability Myelodysplasia (myelodysplastic syndrome) Father Cancer Myocardial infarction Other Family history non-contributory Denies family history of Ovarian cancer Prostate cancer Breast cancer Colorectal cancer Social History Smoking Status: Never smoker Second Hand Exposure: No; Do You Dip or Chew Tobacco: No; Hx Alcohol Use: No Hx Substance Use: No Preferred Language: Slovenian Communication Ability: non verbal Visual Impairment: No Limitations Hearing Ability: Normal Public Relations Specialist Required: No Beliefs That Will Affect Care: None marital status: Single Current Living Situation: Alone Current Living Situation Comment: Personal residential. current occupational status: disabled Feels Safe at Home: Yes Childhood Exposure to Second-Hand Smoke: No Dental Care, Regularly: Yes Physical Activity Frequency: 1-2 Times per Week Seatbelt Use: always Sunscreen Use: No Assistive Devices: Walker, Wheelchair and Other Review of Systems A total of 10 systems reviewed and were otherwise negative Physical Exam Vital Signs Vital Signs - 24 hr 05/04/25 20:53 05/04/25 21:22 05/04/25 21:22 Temperature 35.4 C L 36.4 C L Temperature Source Temporal Artery Scan Oral Pulse Rate 79 72 Pulse Rate [Finger] 72 Respiratory Rate 20 20 Respiratory Effort / Characteristics Non-Labored Spontaneous Respiratory Depth Normal Blood Pressure 142/78 H Blood Pressure [Right Arm] 128/71 Blood Pressure Mean 99 Blood Pressure Mean [Right Arm] 90 Pulse Oximetry 96 91 Oxygen Delivery Method Room Air Room Air Sepsis Recent Fever Within 48 Hours No Sepsis New/Unexplained Change in Mental Status No Sepsis Action Taken by Nursing No Action Required 05/04/25 21:30 05/04/25 21:32 05/04/25 22:00 Temperature Temperature Source Pulse Rate 70 71 Pulse Rate [Finger] Respiratory Rate 16 16 Respiratory Effort / Characteristics Respiratory Depth Blood Pressure 133/69 128/65 Blood Pressure [Right Arm] Blood Pressure Mean 90 86 Blood Pressure Mean [Right Arm] Pulse Oximetry 93 92 92 Oxygen Delivery Method Room Air Sepsis Recent Fever Within 48 Hours Sepsis New/Unexplained Change in Mental Status Sepsis Action Taken by Nursing 05/04/25 23:00 05/04/25 23:32 Temperature Temperature Source Pulse Rate 69 68 Pulse Rate [Finger] Respiratory Rate 20 16 Respiratory Effort / Characteristics Respiratory Depth Blood Pressure 138/62 141/67 H Blood Pressure [Right Arm] Blood Pressure Mean 92 115 Blood Pressure Mean [Right Arm] Pulse Oximetry 93 93 Oxygen Delivery Method Sepsis Recent Fever Within 48 Hours Sepsis New/Unexplained Change in Mental Status Sepsis Action Taken by Nursing VITALS: Vitals are noted on the nurse's note and reviewed by myself. Vital signs stable. GENERAL: Pleasant gentleman nonverbal who has a Hendrix in PEG tube in place, in no acute distress, nondiaphoretic, well-developed well-nourished. SKIN: Capillary reflex less than 2 seconds. HEENT: Normocephalic. PERRLA. EOMI. Nares patent. Mucous membranes moist. Neck is supple without nuchal rigidity. HEART: Regular rate and rhythm LUNGS: Mild diffuse inspiratory and end expiratory wheezes. No retractions or accessory muscle use. ABDOMEN: Positive bowel sounds x 4. Normal tympanic percussion. Soft, PEG tube in place, nontender, without masses or organomegaly. Landaverde sign negative. No guarding or rebound tenderness. no CVA tenderness MUSCULOSKELETAL: No gross musculoskeletal defects. NEURO: Patient was alert and nonverbal. No focal neurological deficits. Course Administered Medications Discontinued Medications Albuterol (Albut/Ipratrop 3mg/0.5mg Neb 3 Ml Vial) 3 ml NEB NOW STA; Protocol Stop: 05/04/25 22:08 Last Admin: 05/04/25 22:13 Dose: 3 ml Documented By: priyanka Piperacillin Sod/Tazobactam Sod (Zosyn) 4.5 gm in 100 mls @ 200 mls/hr IV NOW ONE; Protocol Stop: 05/04/25 22:15 Last Infusion: 05/04/25 23:00 Dose: Infused Documented By: Admin: 05/04/25 22:13 Dose: 200 mls/hr Documented By: priyanka Vancomycin HCl 1,250 mg/ (Sodium Chloride) 525 mls @ 200 mls/hr IV NOW ONE Stop: 05/05/25 00:23 Last Admin: 05/04/25 23:29 Dose: 200 mls/hr Documented By: KML Sodium Chloride (Nss) 1,000 mls @ 999 mls/hr IV .Q1H1M ONE Stop: 05/04/25 22:46 Last Infusion: 05/04/25 23:25 Dose: Infused Documented By: Admin: 05/04/25 22:06 Dose: 999 mls/hr Documented By: priyanka Ioversol (Optiray 320 125ml) 119 ml IV ONCE ONE Stop: 05/04/25 22:39 Last Admin: 05/04/25 22:39 Dose: 119 ml Documented By: CELE Medical Decision Making Medical Records Attestation: I reviewed the patient's medical records. Home Medications Current Medication List: was personally reviewed by me Laboratory Data Attestation: I reviewed the patient's lab results. 05/04/25 21:20 05/04/25 23:07 Lab Results 05/04/25 05/04/25 05/04/25 Range/Units 21:05 21:20 21:42 WBC 6.69 (4.8-10.8) K/ul RBC 3.76 L (4.70-6.10) M/uL Hgb 12.0 L (14.0-18.0) g/dl Hct 37.3 L (42.0-52.0) % MCV 99.2 (80.0-100.0) fL MCH 31.9 (25.0-34.0) pg MCHC 32.2 (32.0-36.0) g/dL RDW Std Deviation 49.5 H (36.4-46.3) fL RDW Coeff of Isaac 13.7 (11.5-14.5) % Plt Count 133 (130-400) K/uL MPV 12.9 H (9.4-12.4) fL Immature Gran % (Auto) 0.4 % Neut % (Auto) 59.3 % Lymph % (Auto) 26.2 % Marinette % (Auto) 10.9 % Eos % (Auto) 2.5 % Baso % (Auto) 0.7 % Neut # (Auto) 3.96 (1.40-6.50) K/uL Lymph # (Auto) 1.75 (1.20-3.40) K/uL Marinette # (Auto) 0.73 H (0.11-0.59) K/uL Eos # (Auto) 0.17 (0.00-0.50) K/uL Baso # (Auto) 0.05 (0.00-0.20) K/uL Immature Gran # (Auto) 0.03 (0.01-0.20) K/uL VBG pH (7.36-7.41) VBG pCO2 (38-50) mmHg VBG pO2 mmHg VBG HCO3 mmol/L VBG O2 Saturation % VBG Base Excess mEq/L Sodium 135 L (136-145) mmol/L Potassium 4.2 (3.5-5.1) mmol/L Chloride 101 (98-107) mmol/L Carbon Dioxide 29 (21-32) mmol/L Anion Gap 5 (3-11) BUN 50 H (6-23) mg/dl Creatinine 1.13 (0.6-1.4) mg/dl Est Cr Clr Drug Dosing 50.9 ml/min eGFR 69.92 BUN/Creatinine Ratio 44.2 H (10-20) Glucose 130 H (70-99(Fasting)) mg/dl Lactate 0.9 (0.4-2.0) mmol/L Calcium 10.0 (8.6-10.3) mg/dl Magnesium (1.7-2.4) mg/dl Total Bilirubin 0.3 (0.2-1.0) mg/dl Direct Bilirubin (0-0.2) mg/dl AST 59 H (13-39) U/L ALT 98 H (7-52) U/L Alkaline Phosphatase 155 H (34-104) U/L Troponin I High Sens 16.7 (0-20) pg/ml Total Protein 8.3 (6.0-8.3) gm/dl Albumin 3.6 (3.4-5.0) gm/dl Globulin 4.7 H (2.5-4.0) gm/dl Albumin/Globulin Ratio 0.8 L (0.9-2) Procalcitonin 0.04 (0-0.5) ng/ml Urine Color Urine Appearance (Clear) Urine pH (4.5-7.5) Ur Specific Butler (1.000-1.030) Urine Protein (Negative) Urine Glucose (UA) (Negative) Urine Ketones (Negative) Urine Blood (Negative) Urine Nitrite (Negative) Urine Bilirubin (Negative) Urine Urobilinogen (Negative) Ur Leukocyte Esterase (Negative) Urine WBC (Auto) (0-5) /hpf Urine RBC (Auto) (0-2) /hpf U Hyaline Cast (Auto) (0-2) /lpf U Epithel Cells (Auto) (0-2) /hpf Urine Bacteria (Auto) (None Seen) Urine Comment Nasal Screen MRSA (PCR) (Negative) SARS-CoV-2 (PCR) NEGATIVE (Negative) Influenza Type A (PCR) Negative (Neg) Influenza Type B (PCR) Negative (Neg) RSV (RT-PCR) Negative (Neg) 05/04/25 05/04/25 05/04/25 Range/Units 22:15 23:07 23:25 WBC (4.8-10.8) K/ul RBC (4.70-6.10) M/uL Hgb (14.0-18.0) g/dl Hct (42.0-52.0) % MCV (80.0-100.0) fL MCH (25.0-34.0) pg MCHC (32.0-36.0) g/dL RDW Std Deviation (36.4-46.3) fL RDW Coeff of Isaac (11.5-14.5) % Plt Count (130-400) K/uL MPV (9.4-12.4) fL Immature Gran % (Auto) % Neut % (Auto) % Lymph % (Auto) % Marinette % (Auto) % Eos % (Auto) % Baso % (Auto) % Neut # (Auto) (1.40-6.50) K/uL Lymph # (Auto) (1.20-3.40) K/uL Marinette # (Auto) (0.11-0.59) K/uL Eos # (Auto) (0.00-0.50) K/uL Baso # (Auto) (0.00-0.20) K/uL Immature Gran # (Auto) (0.01-0.20) K/uL VBG pH 7.39 (7.36-7.41) VBG pCO2 44 (38-50) mmHg VBG pO2 65 mmHg VBG HCO3 27 mmol/L VBG O2 Saturation 94.6 % VBG Base Excess 1.2 mEq/L Sodium 135 L (136-145) mmol/L Potassium 3.8 (3.5-5.1) mmol/L Chloride 106 (98-107) mmol/L Carbon Dioxide 25 (21-32) mmol/L Anion Gap 4 (3-11) BUN 47 H (6-23) mg/dl Creatinine 0.97 (0.6-1.4) mg/dl Est Cr Clr Drug Dosing 59.3 ml/min eGFR 83.98 BUN/Creatinine Ratio 48.5 H (10-20) Glucose 128 H (70-99(Fasting)) mg/dl Lactate (0.4-2.0) mmol/L Calcium 8.8 (8.6-10.3) mg/dl Magnesium 2.3 (1.7-2.4) mg/dl Total Bilirubin 0.3 (0.2-1.0) mg/dl Direct Bilirubin 0.0 (0-0.2) mg/dl AST 55 H (13-39) U/L ALT 83 H (7-52) U/L Alkaline Phosphatase 126 H (34-104) U/L Troponin I High Sens 14.4 (0-20) pg/ml Total Protein 6.7 (6.0-8.3) gm/dl Albumin 2.9 L (3.4-5.0) gm/dl Globulin (2.5-4.0) gm/dl Albumin/Globulin Ratio (0.9-2) Procalcitonin (0-0.5) ng/ml Urine Color Yellow Urine Appearance Clear (Clear) Urine pH 6.5 (4.5-7.5) Ur Specific Butler 1.011 (1.000-1.030) Urine Protein Negative (Negative) Urine Glucose (UA) Negative (Negative) Urine Ketones Negative (Negative) Urine Blood Negative (Negative) Urine Nitrite Positive A (Negative) Urine Bilirubin Negative (Negative) Urine Urobilinogen Negative (Negative) Ur Leukocyte Esterase 2+ H (Negative) Urine WBC (Auto) 6-10 H (0-5) /hpf Urine RBC (Auto) 3-5 H (0-2) /hpf U Hyaline Cast (Auto) 0-2 (0-2) /lpf U Epithel Cells (Auto) 0-2 (0-2) /hpf Urine Bacteria (Auto) 2+ H (None Seen) Urine Comment Nasal Screen MRSA (PCR) Positive A (Negative) SARS-CoV-2 (PCR) (Negative) Influenza Type A (PCR) (Neg) Influenza Type B (PCR) (Neg) RSV (RT-PCR) (Neg) Imaging Data Attestation: I personally reviewed and interpreted this imaging study as follows: Radiologist's Impression: Chest X-Ray 05/04/25 20:58 Exam(s): XR CXR 1 VIEW EXAM: XR Chest, 1 View CLINICAL HISTORY: Cough and wheezing. TECHNIQUE: Frontal view of the chest. COMPARISON: Chest radiograph 04/22/2025 FINDINGS: Lungs: Bilateral airspace opacities are present. Pleural space: Small bilateral pleural effusions. No pneumothorax. Heart: Cardiomegaly. Mediastinum: Unremarkable. Normal mediastinal contour. Bones/joints: There are degenerative changes of the spine. No acute fracture. IMPRESSION: 1. Bilateral airspace opacities may represent pulmonary edema and/or atypical infection. 2. Small bilateral pleural effusions. 3. Cardiomegaly. Electronically signed by: Lore Berkowitz MD 05/04/25 23:03 PM Abdomen/Pelvis CT 05/04/25 22:01 Exam(s): CT ABDOMEN + PELVIS With Contrast IV Amt: 119ML OPTIRAY 320 EXAM: CT Abdomen and Pelvis With Intravenous Contrast CLINICAL HISTORY: Pain. TECHNIQUE: Axial computed tomography images of the abdomen and pelvis with intravenous contrast. CTDI is 25 mGy and DLP is 676 mGy-cm. Automated exposure control was utilized for the study. A dose lowering technique was utilized adhering to the principles of ALARA. CONTRAST: Patient received 119ML OPTIRAY 320 of IV contrast COMPARISON: No relevant prior studies available. FINDINGS: Lung bases: Unremarkable. No mass. No consolidation. Mediastinum: Small hiatal hernia. ABDOMEN: Liver: Unremarkable. No mass. Gallbladder and bile ducts: Unremarkable. No calcified stones. No ductal dilation. Pancreas: Unremarkable. No mass. No ductal dilation. Spleen: Unremarkable. No splenomegaly. Adrenals: Unremarkable. No mass. Kidneys and ureters: Absent left kidney. Nonobstructing right renal calculi. No definitive hydronephrosis of the right kidney. Simple appearing right renal cysts are present, no follow-up is needed. Stomach and bowel: There are surgical changes of the stomach. No obstruction. No mucosal thickening. PELVIS: Appendix: Normal appendix. Bladder: A Hendrix catheter is in good position. Reproductive: Unremarkable as visualized. ABDOMEN and PELVIS: Intraperitoneal space: Unremarkable. No free air. No significant fluid collection. Bones/joints: No acute fracture. No dislocation. Soft tissues: Small bilateral fat-containing inguinal hernias. Vasculature: Moderate atherosclerosis. No aneurysm. Lymph nodes: Unremarkable. No enlarged lymph nodes. Tubes, lines and devices: The G-tube is in good position. IMPRESSION: 1. No acute finding of the abdomen or pelvis. 2. Absent left kidney. 3. Nonobstructing right renal calculi. No definitive hydronephrosis of the right kidney. 4. Small hiatal hernia. Electronically signed by: Lore Berkowitz MD 05/05/25 00:24 AM Chest CTA 05/04/25 22:01 Exam(s): CTA CHEST IV Amt: 119ML OPTIRAY 320 EXAM: CT Angiography Chest With Intravenous Contrast CLINICAL HISTORY: Pulmonary embolus. TECHNIQUE: Axial computed tomographic angiography images of the chest with intravenous contrast. MIPS images were created and reviewed. CTDI is 27 mGy and DLP is 2155 mGy-cm. Automated exposure control was utilized for the study. A dose lowering technique was utilized adhering to the principles of ALARA. MIP reconstructed images were created and reviewed. COMPARISON: Chest radiograph 05/04/2025 FINDINGS: Pulmonary arteries: Unremarkable. No pulmonary embolus. Aorta: Mild atherosclerosis. No aneurysm or dissection. Lungs: Interseptal thickening is concerning for pulmonary edema. Airspace opacity of the right lower lobe favors atypical infection, however can not exclude pneumonia. Pleural space: Small right pleural effusion. No pneumothorax. Heart: Unremarkable. No cardiomegaly. No significant pericardial effusion. No evidence of RV dysfunction. Mediastinum: Small hiatal hernia. Bones/joints: There are degenerative changes of the spine. No acute fracture. Soft tissues: Unremarkable. Lymph nodes: Unremarkable. No enlarged lymph nodes. IMPRESSION: 1. No pulmonary embolus. 2. Interseptal thickening is concerning for pulmonary edema. 3. Airspace opacity of the right lower lobe favors atypical infection, however can not exclude pneumonia. Clinical correlation is recommended. 4. Small right pleural effusion. 5. Small hiatal hernia. Electronically signed by: Lore Berkowitz MD 05/05/25 00:22 AM MDM Narrative Prior records/ancillary studies reviewed. Triage Nursing notes reviewed. Additional history obtained from the home care rn The patient's history was concerning for respiratory difficulties. Differential diagnosis: Etiologies such as infections, reactive airway disease, pneumonia, pneumothorax, COPD, CHF, cardiac ischemia, pulmonary embolism, musculoskeletal, gastrointestinal, as well as others were entertained. Physical examination: As above. ER treatment provided: An order was placed for continuous cardiac monitoring. The monitor shows a rate of 60-100 with a sinus rhythm per my interpretation. Zosyn and vancomycin were ordered. Fluids were held as patient has a history of heart failure On reassessment the patient felt better. Diagnostic interpretation by me: The electrocardiogram was ordered for SOB. ECG: Normal sinus, left axis, first-degree AV block, rate of 70. Impression normal sinus rhythm with a left axis deviation independently interpreted by myself The labs Independently Interpreted by myself revealed negative lactic. No worrisome leukocytosis. Mildly elevated LFTs somewhat similar in the past. Imaging studies: Imaging was reviewed and read by radiology Consultation: A consultation was placed with the hospitalist. The case was discussed and diagnostics were reviewed. The patient was evaluated in the ER for further treatment. This appears to be consistent with pneumonia who failed outpatient treatment. Patient has been on Augmentin. He was given Zosyn and vancomycin here. Septic workup was initiated. Patient is nonverbal. History is obtained from the home care rn. Patient will be admitted to the medical service. Medicine was consulted and the case was discussed. By the evaluation outlined above emergent etiologies such as CHF, cardiac ischemia, pulmonary embolism, reactive airway disease, pneumothorax, musculoskeletal, serious bacterial infections, as well as others were deemed relatively unlikely. The home care rn informed about the findings as listed above. All questions were answered and pleased with the treatment. The chart was completed utilizing [employer] Speech voice recognition software. Grammatical errors, random word insertions, pronoun errors, and incomplete sentences are an occassional consequence of this system due to software limitations, ambient noise, and hardware issues. Any formal questions or concerns about the content, text, or information contained within the body of this dictation should be directly addressed to the physician assistant oceanographer for clarification. Impression & Plan Elevated liver function tests, CKD (chronic kidney disease) stage 2, GFR 60-89 ml/min, Pneumonia Discharge Plan Visit Data Chief Complaint: Cough Stated Complaint: REF BY MD; WHEEZING, COUGH -HX OF RECENT PNEUMONIA ED Provider: [facility] ED Midlevel Provider: Nat Tan Discharge Problem: Elevated liver function tests, CKD (chronic kidney disease) stage 2, GFR 60-89 ml/min, Pneumonia Patient Disposition: Admitted As Inpatient Condition: Fair Discharge Instructions Interventions: ED Discharge Assessment Last Done: 05/05/25 00:43 Forms Stand Alone Forms: [facility] Prescriptions Prescriptions: No Action (DME) nebulizer accessories Kit See Rx Instructions .ROUTE .MEDSUPPLY Qty: 1 0RF Rx Instructions: NEBULIZER, FACE MASK, AND SUPPLIES DX: R05 (DME) diaper,brief,adult,disposable Misc See Dose Instructions .ROUTE .MEDSUPPLY Qty: 240 11RF Dose Instruction: As directed Rx Instructions: As directed adult LARGE 4-8 per day clozapine 50 mg tablet 50 mg Feeding Tube QAM Rx Instructions: crush and dissolve in 5 cc's of water, administer via g-tube chlorhexidine gluconate [Peridex] 0.12 % mouthwash 15 ml BUCCAL BID Qty: 473 4RF Saccharomyces boulardii 250 mg capsule 250 mg feeding tube BID Qty: 60 11RF (DME) compress.stocking,knee,reg,med Misc See Rx Instructions .Route Qty: 2 0RF Rx Instructions: As directed polyethylene glycol 3350 [Miralax] 17 gram/dose powder 17 g feeding tube Q OTHER DAY Qty: 238 5RF Rx Instructions: one cap full mixed with 8 oz of water every other day; for constipation, administered via feeding tube. Hold for loose stools levalbuterol HCl 1.25 mg/3 mL solution for nebulization 1.25 mg INH Q4H PRN (Reason: shortness of breath or wheezing or cough) Qty: 75 5RF Rx Instructions: Nebulizer alum-mag hydroxide-simeth 200-200-20 mg/5 mL suspension 30 ml feeding tube BID PRN (Reason: UPSET STOMACH/VOMITING) bisacodyl 10 mg suppository 10 mg NC DAILY PRN (Reason: constipation) Patient Comments: CONFIRMED W/ NURSE AT SKILLS PT STILL NEEDS/TAKES THIS 02/10/25 clozapine [Clozaril] 25 mg tablet 25 mg Feeding Tube HS Qty: 30 0RF Rx Instructions: TOTAL DOSE 125 MG--TAKES WITH 100 MG TAB. crush and dissolve in 5 cc's of water, administer via g-tube. nystatin [Nystop] 100,000 unit/gram powder 1 applic TOPICAL BID Qty: 30 0RF allopurinol 100 mg tablet 100 mg feeding tube BID Qty: 180 3RF Rx Instructions: 1 tablet twice daily, dissolve in 5 ml's of water and give via feeding tube for gout; (DME) Wings Choice Plus Adult Briefs Misc See Rx Instructions .Route Qty: 216 5RF Rx Instructions: change 4-6 times daily (DME) sheep skin heel protectors See Rx Instructions .Route .MEDSUPPLY Qty: 1 5RF Rx Instructions: apply to each heel Glucerna 1.5 Kevin 0.08-1.5 gram-kcal/mL liquid See Rx Instructions .ROUTE .COMPLEX Qty: 960 11RF Rx Instructions: 8oz via PEG QID. Flush PEG with 90mL water before and after each bolus acetaminophen 160 mg/5 mL (5 mL) suspension 640 mg Feeding Tube Q4 MDD 3 GRAMS/24 HOURS PRN (Reason: fever/headache/minor ache/pain) Qty: 500 3RF fluocinonide-emollient 0.05 % cream 1 applic topical BID PRN (Reason: rash) Qty: 60 1RF Rx Instructions: PRN FOR ABD BINDER rash furosemide 10 mg/mL solution 10 mg feeding tube DIRECTED PRN (Reason: Weight Gain) Qty: 60 3RF Rx Instructions: 1 ml via feeding tube for WEIGHT GAIN = or >THAN 3LBS IN 3 DAYS OR LESS; administer via g-tube. clotrimazole 1 % cream 1 applic topical QID PRN (Reason: Rash) Qty: 45 5RF loperamide 2 mg capsule 2 mg feeding tube Q4H MDD 8 MG/24 HOURS PRN (Reason: Loose Stool) Qty: 30 5RF pediatric multivitamin Tablet,Chewable 1 tab feeding tube QAM Rx Instructions: DISSOLVE IN 5 ML WATER guaifenesin [Chani-Tussin] 100 mg/5 mL Liquid 100 mg feeding tube TID docusate sodium 50 mg/5 mL liquid 100 mg feeding tube QAM cyanocobalamin (vitamin B-12) [Vitamin B-12] 1,000 mcg tablet 1,000 mcg Feeding Tube 2XWK Rx Instructions: crush and dissolve in 30ml of water, administer via g-tube on Monday and fluticasone propionate 50 mcg/actuation spray,suspension 2 spray intranasal QAM Rx Instructions: administer into each nostril zinc oxide 13 % cream 1 applic TOPICAL BID clozapine 100 mg tablet 100 mg feeding tube HS Rx Instructions: TOTAL DOSE 125 MG--TAKES WITH 25 MG TAB. cranberry 500 mg Capsule 500 mg feeding tube BIDM Rx Instructions: administer with meals Azo D-Mannose 120 2 cap feeding tube DAILY cetirizine [Zyrtec] 10 mg Tablet,Chewable 10 mg feeding tube DAILY Rx Instructions: dissolve into 5 ml of water and give through feeding tube Referrals Referrals: Sharon Montero CRNP [Primary Care Provider] -
[2025-05-04 22:34] LABS: Appearance Urine Clear (Clear); Bacteria Urine Automated 2+ (None Seen); Cast Urine Automated 0-2 /lpf (0-2); Epithelial Cell Urine Auto 0-2 /hpf (0-2); Glucose Urine UA Negative (Negative)
[2025-05-04] MEDS: OPTIRAY 320 125ml IV ONE (22:39)
--- NOTE | 2025-05-04 23:03 | XRay Report ---
Exam(s): XR CXR 1 VIEW EXAM: XR Chest, 1 View CLINICAL HISTORY: Cough and wheezing. TECHNIQUE: Frontal view of the chest. COMPARISON: Chest radiograph 04/22/2025 FINDINGS: Lungs: Bilateral airspace opacities are present. Pleural space: Small bilateral pleural effusions. No pneumothorax. Heart: Cardiomegaly. Mediastinum: Unremarkable. Normal mediastinal contour. Bones/joints: There are degenerative changes of the spine. No acute fracture. IMPRESSION: 1. Bilateral airspace opacities may represent pulmonary edema and/or atypical infection. 2. Small bilateral pleural effusions. 3. Cardiomegaly. Electronically signed by: Lore Berkowitz MD 05/04/25 23:03 PM
--- NOTE | 2025-05-04 23:10 | History & Physical Report ---
Date of Service May 04, 2025 Assessment & Plan (1) Pneumonia: (2) Transaminitis: Plan 70-year-old male PMHx microcephaly, myelodysplastic syndrome, chronic indwelling Hendrix catheter, recurrent UTIs, esophageal dyskinesia dependent on PEG tube feeding, seizure disorder, and prior aspiration pneumonia who presents for cough and wheezing the night of arrival. ED evaluation reveals no leukocytosis, normal VBGs and normal lactate. However CXR with bilateral airspace opacities that may represent pulm edema or atypical infection as well as bilat pleural effusions. His chest CTA is pending at the time of admission. He will be admitted for PNA with respective changes to treatment plan as the workup is complete. #PNA/Pleural effusions Sx of cough and wheezing the day of arrival. H/o aspiration PNA, was on Augmentin as prescribed by PCP for PNA. CURB 65 score 2 (BUN, age). Admission for PNA, failed outpatient treatment. - CBC without leukocytosis; VBGs WNL; procal 0.04; lactate 0.9 - CBC am - CXR bilateral airspace opacities that may represent pulm edema or atypical infection as well as bilat pleural effusions - CTA chest no PE, interseptal thickening concerning for pulm edema, airspace opacity RLL favors atypical infection, small R pleural effusion, small hiatal hernia - MRSA pending -- history of (+) MRSA in the past - O2 prn - Acetaminophen prn fever/pain - Continue nebs - Pt required pneumo vest in the past to help clear secretions -- this was not obtained at time of admission however can be considered throughout hospital course - Zosyn + vanco IV - continue and deescalate as appropriate - Consider pulm consult -- none placed at time of admission #Transaminitis Prior history of as well. Does not appear to be in pain/discomfort during exam. - AST/ALT 59/98, alk phos 155 - Trend LFTs as appropriate - CTAP no acute findings, absent L kidney, nonobstructing R renal calculi, small hiatal hernia #CKD, stage 2- Cr baseline ~ 1.1, Cr at admission 0.97 #Hendrix catheter/Chronic UTIs - UA pending, history of Morganella morganii and Citrobacter freundii complex (sensitive to Amikacin, cefoxitin, ertapenem, and meropenem) as well as Proteus mirabilis; Hendrix catheter management #Microcephaly/Esophageal dyskinesia - Congenital, nonverbal at baseline; Continue PEG feedings + supportive care as appropriate, medications via tube; Dietitian consulted - appreciate assistance #H/o seizure disorder- No antiepileptics at present #Psych- Clozapine - continue #Myelodysplastic syndrome- H/H 12/37.3 at admission - Trend CBC #Gout- Allopurinol - continue - Lasix held at admission; utilized for > 3lb weight gain per prescription details -- can add back as appropriate Dispo: Admit, PCU VTE Prophylaxis: Heparin This document was dictated utilizing Simphatic. Please excuse any grammatical errors that may be secondary to use of this software. Admission and Anticipated Discharge Date Admission Date: 05/04/2025 History of Present Illness Chief Complaint: Cough, wheezing Primary Care Provider: YOON Vaughn 70-year-old male PMHx microcephaly, myelodysplastic syndrome, chronic indwelling Hendrix catheter, recurrent UTIs, esophageal dyskinesia dependent on PEG tube feeding, seizure disorder, and prior aspiration pneumonia who presents for congestion imaging studies noted arrival. Just completed antibiotics for PNA. Caregiver present in room at time of visit. 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 She was told the patient had pneumonia. She states that he sometimes has aspiration events, did not see one recently. He has not been having vomiting or diarrhea. No fever to her knowledge. Has been coughing some. History is very limited. ED evaluation reveals CBC without leukocytosis, H&H 12/37.3; CMP sodium 135, BUN 50, ratio 44.2, glucose 130, AST/ALT 59/98, alkaline phosphatase 155; globulin 4.7;: Lactate 0.9; procalcitonin pending; COVID/flu/RSV negative; CXR bilateral airspace opacities represent pulm edema or atypical infection, small bilat pleural effusions, cardiomegaly; pending chest CTA; EKG sinus rhythm with first- degree AV block, LAD, LVH at 70 bpm.; Provided with 1L NSS, Zosyn 4.5g IV, vancomycin IV, and albuterol neb in ED. Please see Dr. Chen's attestation for adjustments/additions to treatment plan. Allergies Allergy/AdvReac Type Severity Reaction Status Date / Time glycopyrrolate Allergy Severe TONGUE Verified 02/13/25 14:37 SWELLING trazodone Allergy Severe SWELLING Verified 02/13/25 14:37 OF TONGUE & EXTREMITIES, DIFFICULTY BREATHING. lithium Allergy Intermediate EXCESSIVE Verified 02/13/25 14:37 DRINKING, DECREASED APPETITE & VERBALIZATIONS risperidone Allergy Intermediate POSSIBLE Verified 02/13/25 14:37 NEUROLEPTIC MALIGNANCY SYNDROME amoxicillin [From Augmentin] Allergy Mild Rash Verified 02/13/25 14:37 clavulanic acid Allergy Mild Rash Verified 02/13/25 14:37 [From Augmentin] Macrolide Antibiotics Allergy Mild RASH Verified 02/13/25 14:37 belladonna alkaloids Allergy Unknown Unknown Verified 02/13/25 14:37 clarithromycin Allergy Unknown Unknown Verified 02/13/25 14:37 metoclopramide Allergy Unknown PT TAKES Verified 02/13/25 14:37 AT HOME Phenylpiperazine Allergy Unknown Unknown - Unverified 02/13/25 14:37 Antidepressant On med list from [facility] aripiprazole AdvReac Intermediate HYPERACTIVITY Verified 02/13/25 14:37 & INSOMNIA Anticholinergics Allergy Unknown Unknown - Uncoded 02/13/25 14:37 On med list from [facility] Home Medications Medication Instructions Recorded Confirmed Type nebulizer accessories #1 ea 07/30/20 05/04/25 Rx sheep skin heel protectors #1 ea 11/11/21 05/04/25 Rx diaper,brief,adult,disposable #240 ea 01/11/22 05/04/25 Rx clozapine 50 mg tablet 50 mg feeding tube QAM 10/27/22 05/04/25 History chlorhexidine gluconate 0.12 % 15 ml buccal BID #473 mL 12/01/23 05/04/25 Rx mouthwash (Peridex) Saccharomyces boulardii 250 mg 250 mg feeding tube BID #60 caps 12/04/23 05/04/25 Rx capsule compress.stocking,knee,reg,med #2 ea 12/18/23 05/04/25 Rx clozapine 100 mg tablet 100 mg feeding tube HS 01/08/24 05/04/25 History pediatric multivitamin 1 tab feeding tube QAM 01/11/24 05/04/25 History nutrition tx glu See Rx Instructions .Route 06/06/24 05/04/25 Rx intol,lac-free,soy-fiber 0.08 .COMPLEX #960 oz gram-1.5 kcal/mL liquid (Glucerna 1.5 Kevin) polyethylene glycol 3350 17 17 g feeding tube Q OTHER DAY 11/18/24 05/04/25 Rx gram/dose oral powder (Miralax) constipation #238 grams levalbuterol HCl 1.25 mg/3 mL 1.25 mg (3 mL) inhalation Q4H PRN 11/26/24 05/04/25 Rx solution for nebulization shortness of breath or wheezing or cough #75 mL clotrimazole 1 % topical cream 1 applic topical QID PRN Rash #45 12/02/24 05/04/25 Rx grams furosemide 10 mg/mL oral solution 10 mg feeding tube DIRECTED PRN 12/02/24 05/04/25 Rx Weight Gain #60 mL loperamide 2 mg capsule 2 mg feeding tube Q4H PRN Loose 12/02/24 05/04/25 Rx Stool #30 caps acetaminophen 160 mg/5 mL (5 mL) 640 mg (20 mL) feeding tube Q4 PRN 01/23/25 05/04/25 Rx oral suspension fever/headache/minor ache/pain #500 mL cyanocobalamin (vitamin B-12) 1,000 mcg feeding tube 2XWK 01/25/25 05/04/25 History 1,000 mcg tablet (Vitamin B-12) docusate sodium 50 mg/5 mL oral 100 mg feeding tube QAM 01/25/25 05/04/25 History liquid fluticasone propionate 50 2 spray intranasal QAM 01/25/25 05/04/25 History mcg/actuation nasal spray,suspension guaifenesin 100 mg/5 mL oral 100 mg feeding tube TID 01/25/25 05/04/25 History liquid (Chani-Tussin) zinc oxide 13 % topical cream 1 applic topical BID Bilateral 01/25/25 05/04/25 History Buttock skin issue aluminum-mag hydroxide-simethicone 30 ml feeding tube BID PRN UPSET 02/10/25 05/04/25 History 200 mg-200 mg-20 mg/5 mL oral susp STOMACH/VOMITING bisacodyl 10 mg rectal suppository 10 mg RI DAILY PRN constipation 02/10/25 05/04/25 History clozapine 25 mg tablet (Clozaril) 25 mg feeding tube HS #30 tabs 02/10/25 05/04/25 Rx fluocinonide-emollient 0.05 % 1 applic topical BID PRN rash #60 02/13/25 05/04/25 Rx topical cream grams nystatin 100,000 unit/gram topical 1 applic topical BID Abdomen twice 02/18/25 05/04/25 Rx powder (Nystop) daily #30 grams allopurinol 100 mg tablet 100 mg feeding tube BID #180 tabs 02/28/25 05/04/25 Rx diaper,brief,adult,disposable #216 ea 03/11/25 05/04/25 Rx (Wings Choice Plus Adult Briefs) Azo D-Mannose 120 2 cap feeding tube DAILY 05/04/25 05/04/25 History cetirizine 10 mg chewable tablet 10 mg feeding tube DAILY 05/04/25 05/04/25 History (Zyrtec) cranberry 500 mg capsule 500 mg feeding tube BIDM 05/04/25 05/04/25 History Past Med/Surg History Problem List (Updated 05/05/25 @ 00:46 by Nat Tan PA-C) Pneumonia (Acute) Transaminitis Acute hypernatremia Elevated hemidiaphragm Acute diastolic (congestive) heart failure Acute respiratory failure with hypoxia Acute hypoxemic respiratory failure Parapneumonic effusion Hypoxia (Acute) CKD (chronic kidney disease) stage 2, GFR 60-89 ml/min (Acute) Infection due to extended spectrum beta lactamase (ESBL) producing Proteus mirabilis Seizure disorder (03/27/12) Aspiration pneumonitis Elevated liver function tests (Acute) Microcephaly (Chronic) Myelodysplasia (myelodysplastic syndrome) Prediabetes Urinary retention Diarrhea Chronic indwelling Hendrix catheter (Chronic) Changed 01/24/2025 Congestive heart failure (Acute) Chronic rhinitis Constipation Anemia (Chronic) Thrombocytopenia (Chronic) Gingival and periodontal disease (Acute) Gait disturbance (Acute) Esophageal dyskinesia (Acute) Chronic PEG tube Edema (Acute) Absent kidney, acquired (Acute) Weight gain Bilateral lower extremity edema Cough Dysphagia Gout Medical History UTI (urinary tract infection) Catheter-associated urinary tract infection Pneumonia, aspiration Hypernatremia Hypokalemia Acute diastolic CHF (congestive heart failure) Surgical History History of craniotomy History of colonoscopy History of hernia repair History of esophagogastroduodenoscopy (EGD) History of cholecystectomy Family History Sister Microcephaly Intellectual disability Myelodysplasia (myelodysplastic syndrome) Father Cancer Myocardial infarction Other Family history non-contributory Denies family history of Ovarian cancer Prostate cancer Breast cancer Colorectal cancer Social History Smoking Status: Never smoker Second Hand Exposure: No; Do You Dip or Chew Tobacco: No; Hx Alcohol Use: No Hx Substance Use: No Preferred Language: Vincentian Communication Ability: non verbal Visual Impairment: No Limitations Hearing Ability: Normal [employer] Required: No Beliefs That Will Affect Care: None marital status: Single Current Living Situation: Alone Current Living Situation Comment: Personal shelter. current occupational status: disabled Other Information That Helps Us Care for You: No Feels Safe at Home: Yes Safety Concerns: Feels Safe At This Time Childhood Exposure to Second-Hand Smoke: No Dental Care, Regularly: Yes Physical Activity Frequency: 1-2 Times per Week Seatbelt Use: always Sunscreen Use: No Assistive Devices: Walker, Wheelchair and Other Review of Systems Review of Systems: Unobtainable due to cognitive status Physical Exam Physical Exam: General: No acute distress Skin: Warm and dry Head: Normocephalic, atraumatic Eyes: PERRL, conjunctivae clear, sclera non-icteric ENT: External ear and ear canal without swelling; nose atraumatic; good dentition, tongue normal appearance, pharynx normal Neck: Supple, no LAD Cardio: RRR, no M/G/R, S1 and S2 normal Resp: Faint crackles on expiration; No respiratory distress Abdomen: Soft, symmetric, nontender; abdominal binder in place, no rash noted; No masses or hepatosplenomegaly; Bowel sounds normoactive; PEG tube in place, no indications of infection (edema/erythema/drainage) MSK: No deformities; pulses palpable and equal; no edema. Neuro: Awake, alert; Sensation intact bilaterally; CN grossly intact Psych: Nonverbal at baseline Inspector [employer] is present in room at time of visit. Results & Data Results & Data Vital Signs (Past 12 Hours) Vital Signs Temp Pulse Pulse Resp BP BP Pulse Ox 05/04/25 21:32 92 05/04/25 21:22 72 05/04/25 21:22 36.4 C L 72 20 128/71 91 05/04/25 20:53 35.4 C L 79 20 142/78 H 96 O2 Del Method 05/04/25 21:32 Room Air 05/04/25 21:22 05/04/25 21:22 Room Air 05/04/25 20:53 Room Air Laboratory Results 05/04/25 22:15 Urine Culture - Pending Urine,Clean Catch 05/04/25 21:42 Aerobic Blood Culture - Pending Blood Anaerobic Blood Culture - Pending 05/04/25 21:42 Aerobic Blood Culture - Pending Blood Anaerobic Blood Culture - Pending 05/04/25 05/04/25 05/04/25 22:15 21:42 21:20 WBC 6.69 RBC 3.76 L Hgb 12.0 L Hct 37.3 L MCV 99.2 MCH 31.9 MCHC 32.2 RDW Std Deviation 49.5 H RDW Coeff of Isaac 13.7 Plt Count 133 MPV 12.9 H Immature Gran % (Auto) 0.4 Neut % (Auto) 59.3 Lymph % (Auto) 26.2 Pleasants % (Auto) 10.9 Eos % (Auto) 2.5 Baso % (Auto) 0.7 Neut # (Auto) 3.96 Lymph # (Auto) 1.75 Pleasants # (Auto) 0.73 H Eos # (Auto) 0.17 Baso # (Auto) 0.05 Immature Gran # (Auto) 0.03 Sodium 135 L Potassium 4.2 Chloride 101 Carbon Dioxide 29 Anion Gap 5 BUN 50 H Creatinine 1.13 Est Cr Clr Drug Dosing 50.9 eGFR 69.92 BUN/Creatinine Ratio 44.2 H Glucose 130 H Lactate 0.9 Calcium 10.0 Total Bilirubin 0.3 AST 59 H ALT 98 H Alkaline Phosphatase 155 H Troponin I High Sens 16.7 Total Protein 8.3 Albumin 3.6 Globulin 4.7 H Albumin/Globulin Ratio 0.8 L Procalcitonin 0.04 Urine Color Yellow Urine Appearance Clear Urine pH 6.5 Ur Specific Camilla 1.011 Urine Protein Negative Urine Glucose (UA) Negative Urine Ketones Negative Urine Blood Negative Urine Nitrite Positive A Urine Bilirubin Negative Urine Urobilinogen Negative Ur Leukocyte Esterase 2+ H Urine WBC (Auto) 6-10 H Urine RBC (Auto) 3-5 H U Hyaline Cast (Auto) 0-2 U Epithel Cells (Auto) 0-2 Urine Bacteria (Auto) 2+ H Urine Comment SARS-CoV-2 (PCR) Influenza Type A (PCR) Influenza Type B (PCR) RSV (RT-PCR) 05/04/25 21:05 WBC RBC Hgb Hct MCV MCH MCHC RDW Std Deviation RDW Coeff of Isaac Plt Count MPV Immature Gran % (Auto) Neut % (Auto) Lymph % (Auto) Pleasants % (Auto) Eos % (Auto) Baso % (Auto) Neut # (Auto) Lymph # (Auto) Pleasants # (Auto) Eos # (Auto) Baso # (Auto) Immature Gran # (Auto) Sodium Potassium Chloride Carbon Dioxide Anion Gap BUN Creatinine Est Cr Clr Drug Dosing eGFR BUN/Creatinine Ratio Glucose Lactate Calcium Total Bilirubin AST ALT Alkaline Phosphatase Troponin I High Sens Total Protein Albumin Globulin Albumin/Globulin Ratio Procalcitonin Urine Color Urine Appearance Urine pH Ur Specific Camilla Urine Protein Urine Glucose (UA) Urine Ketones Urine Blood Urine Nitrite Urine Bilirubin Urine Urobilinogen Ur Leukocyte Esterase Urine WBC (Auto) Urine RBC (Auto) U Hyaline Cast (Auto) U Epithel Cells (Auto) Urine Bacteria (Auto) Urine Comment SARS-CoV-2 (PCR) NEGATIVE Influenza Type A (PCR) Negative Influenza Type B (PCR) Negative RSV (RT-PCR) Negative Diagnostic Findings Chest X-Ray 05/04/25 20:58 Exam(s): XR CXR 1 VIEW EXAM: XR Chest, 1 View CLINICAL HISTORY: Cough and wheezing. TECHNIQUE: Frontal view of the chest. COMPARISON: Chest radiograph 04/22/2025 FINDINGS: Lungs: Bilateral airspace opacities are present. Pleural space: Small bilateral pleural effusions. No pneumothorax. Heart: Cardiomegaly. Mediastinum: Unremarkable. Normal mediastinal contour. Bones/joints: There are degenerative changes of the spine. No acute fracture. IMPRESSION: 1. Bilateral airspace opacities may represent pulmonary edema and/or atypical infection. 2. Small bilateral pleural effusions. 3. Cardiomegaly. Electronically signed by: Lore Berkowitz MD 05/04/25 23:03 PM Medications Administered 1L NSS Zosyn 4.5g IV Vancomycin IV Albuterol 3mL neb ECG Additional Comments: Sinus rhythm with first-degree AV block, LAD, LVH 70 bpm, RI 218, QRS 114, QT/QTc 14/451, PRT 53/-69/52 Code Status & VTE Plan Code Status Full Unclear as caregiver was unsure what his final wishes were. He has been both DNR/DNI and full code in the past. Given uncertainty, pt was made full code at this time. Supervising Physician Co-Signing Physician Notes Attending addendum: I have physically seen this patient, have supervised the DELVIS's activities, and agree with the H&P unless as otherwise noted. Assessment and Plan: The patient is a 70-year-old male with a past medical history including microcephaly, myelodysplastic syndrome, chronic indwelling Hendrix catheter, recurrent urinary tract infections, esophageal dyskinesia dependent on PEG tube feeding, seizure disorder, and history of prior aspiration pneumonia. He presents to the emergency department for productive cough, and wheezing, that began earlier this evening. Workup in the emergency department included chest x-ray with bilateral airspace opacities and bilateral pleural effusions. CTA chest is negative for PE and shows airspace opacities suggestive of atypical infection in the right lower lobe. Emergency department has referred the patient to [facility] service for evaluation and treatment for pneumonia. Pneumonia/pleural effusions- History of aspiration pneumonia Patient had been on Augmentin prescribed by PCP, and is thus considered a failure of outpatient treatment Patient is MRSA positive Placed on vancomycin IV and Zosyn IV DuoNebs every 2 hours as needed Acetaminophen as needed pain or fever History of requiring pneumo vest to help clear secretions To consider pulmonary consult if slow to improve Mild transaminitis- CT abdomen pelvis with no acute findings Follow laboratory serially. Further workup as needed CKD stage II- Creatinine at baseline 1.1, follow serially Hendrix catheter/chronic urinary tract infections- Follow urine culture sensitivity, history of Morganella morganii and Citrobacter freundii complex, Proteus mirabilis Microcephaly/esophageal dyskinesia- Congenital, nonverbal at baseline Continue PEG tube feedings and supportive care Medications via PEG tube History of seizure disorder/mood disorder- Continue clozapine PG Care Time/CCT Total # of Minutes Spent Total Time Spent with Patient: Total time spent is greater than 50% in coordination of care (as documented) at patient's floor/unit and/or counseling patient: Coding Level of Care Code 28610 INT INP/OBS CARE MIN Diagnoses Pneumonia J18.9 Pneumonia type: aspiration pneumonia Transaminitis R74.01 (1) Pneumonia Pneumonia type: aspiration pneumonia
[2025-05-04 23:14] LABS: Base Excess VBG 1.2 mEq/L; HCO3 VBG 27 mmol/L; Oxygen Saturation VBG 94.6 %; PCO2 VBG 44 mmHg (38-50); PO2 VBG 65 mmHg; pH VBG 7.39 (7.36-7.41)
[2025-05-04] MEDS: VANCOMYCIN HCL 1,250 MG in SODIUM CHLORIDE 0.9% 500 ML IV ONE (23:29)
--- NOTE | 2025-05-04 23:32 | Emergency Department Note ---
ED Visit Note I was consulted by the Advanced Practice Provider. I personally made/approved the management plan and take responsibility for the patient management. I performed a substantive portion of the visit. This includes the aspects of: [-I independently interpreted the following studies:][Chest x-ray does show patchy infiltrates at the bases, more so on the right, consistent with pneumonia.] Patient presents with respiratory complaints. Laboratory work was somewhat reassuring. Chest x-ray does show ongoing pulmonary infiltrates. He has had failed outpatient treatment for pneumonia. Admission is warranted. The on-call hospitalist was consulted. .
[2025-05-04 23:37] LABS: Alanine Aminotransferase 83.0 U/L (7-52); Alkaline Phosphatase 126.0 U/L (34-104); Anion Gap 4.0 (3-11); Bilirubin,Total 0.3 mg/dl (0.2-1.0); Blood Urea Nitrogen 47.0 mg/dl (6-23); Calcium 8.8 mg/dl (8.6-10.3); Carbon Dioxide 25.0 mmol/L (21-32); Chloride 106.0 mmol/L (98-107); Creatinine Clr Calc Pharmacy 59.3 ml/min; Glucose 128.0 mg/dl (70-99(Fasting)); Magnesium 2.3 mg/dl (1.7-2.4); Potassium 3.8 mmol/L (3.5-5.1); Sodium 135.0 mmol/L (136-145); Total Protein 6.7 gm/dl (6.0-8.3)
--- NOTE | 2025-05-05 00:23 | CT Scan Report ---
Exam(s): CTA CHEST IV Amt: 119ML OPTIRAY 320 EXAM: CT Angiography Chest With Intravenous Contrast CLINICAL HISTORY: Pulmonary embolus. TECHNIQUE: Axial computed tomographic angiography images of the chest with intravenous contrast. MIPS images were created and reviewed. CTDI is 27 mGy and DLP is 2155 mGy-cm. Automated exposure control was utilized for the study. A dose lowering technique was utilized adhering to the principles of ALARA. MIP reconstructed images were created and reviewed. COMPARISON: Chest radiograph 05/04/2025 FINDINGS: Pulmonary arteries: Unremarkable. No pulmonary embolus. Aorta: Mild atherosclerosis. No aneurysm or dissection. Lungs: Interseptal thickening is concerning for pulmonary edema. Airspace opacity of the right lower lobe favors atypical infection, however can not exclude pneumonia. Pleural space: Small right pleural effusion. No pneumothorax. Heart: Unremarkable. No cardiomegaly. No significant pericardial effusion. No evidence of RV dysfunction. Mediastinum: Small hiatal hernia. Bones/joints: There are degenerative changes of the spine. No acute fracture. Soft tissues: Unremarkable. Lymph nodes: Unremarkable. No enlarged lymph nodes. IMPRESSION: 1. No pulmonary embolus. 2. Interseptal thickening is concerning for pulmonary edema. 3. Airspace opacity of the right lower lobe favors atypical infection, however can not exclude pneumonia. Clinical correlation is recommended. 4. Small right pleural effusion. 5. Small hiatal hernia. Electronically signed by: Lore Berkowitz MD 05/05/25 00:22 AM
--- NOTE | 2025-05-05 00:25 | CT Scan Report ---
Exam(s): CT ABDOMEN + PELVIS With Contrast IV Amt: 119ML OPTIRAY 320 EXAM: CT Abdomen and Pelvis With Intravenous Contrast CLINICAL HISTORY: Pain. TECHNIQUE: Axial computed tomography images of the abdomen and pelvis with intravenous contrast. CTDI is 25 mGy and DLP is 676 mGy-cm. Automated exposure control was utilized for the study. A dose lowering technique was utilized adhering to the principles of ALARA. CONTRAST: Patient received 119ML OPTIRAY 320 of IV contrast COMPARISON: No relevant prior studies available. FINDINGS: Lung bases: Unremarkable. No mass. No consolidation. Mediastinum: Small hiatal hernia. ABDOMEN: Liver: Unremarkable. No mass. Gallbladder and bile ducts: Unremarkable. No calcified stones. No ductal dilation. Pancreas: Unremarkable. No mass. No ductal dilation. Spleen: Unremarkable. No splenomegaly. Adrenals: Unremarkable. No mass. Kidneys and ureters: Absent left kidney. Nonobstructing right renal calculi. No definitive hydronephrosis of the right kidney. Simple appearing right renal cysts are present, no follow-up is needed. Stomach and bowel: There are surgical changes of the stomach. No obstruction. No mucosal thickening. PELVIS: Appendix: Normal appendix. Bladder: A Hendrix catheter is in good position. Reproductive: Unremarkable as visualized. ABDOMEN and PELVIS: Intraperitoneal space: Unremarkable. No free air. No significant fluid collection. Bones/joints: No acute fracture. No dislocation. Soft tissues: Small bilateral fat-containing inguinal hernias. Vasculature: Moderate atherosclerosis. No aneurysm. Lymph nodes: Unremarkable. No enlarged lymph nodes. Tubes, lines and devices: The G-tube is in good position. IMPRESSION: 1. No acute finding of the abdomen or pelvis. 2. Absent left kidney. 3. Nonobstructing right renal calculi. No definitive hydronephrosis of the right kidney. 4. Small hiatal hernia. Electronically signed by: Lore Berkowitz MD 05/05/25 00:24 AM
[2025-05-05] MEDS ORDERED: PATIENT'S OWN ENTERAL FEEDING PEG SCH (01:11)
[2025-05-05] MEDS ORDERED: NUT TX GLUC INTOL LF SOY FIBER SCH (01:11)
[2025-05-05] MEDS ORDERED: VANCOMYCIN CONSULT ACTIVE PRN (01:11)
[2025-05-05] MEDS ORDERED: [UNRECOGNIZED DRUG - OTHER] SCH (01:11)
[2025-05-05] MEDS ORDERED: VANCOMYCIN HCL 1,000 MG in SODIUM CHLORIDE 0.9% 250 ML IV SCH (01:11)
[2025-05-05] MEDS ORDERED: ONDANSETRON INJ 2 MG/ML 2 ML VIAL IV PRN (01:11)
[2025-05-05] MEDS ORDERED: LEVALBUTEROL 1.25 MG/3 ML NEB INH PRN (01:11)
[2025-05-05] MEDS ORDERED: ACETAMINOPHEN SUSP 325 MG/10.15 ML UDC PEG PRN (01:18)
[2025-05-05] MEDS ORDERED: ALUMINUM/MAGNESIUM/SIMETH (MAALOX MAX) 30 ML UDC PEG PRN (01:19)
[2025-05-05] MEDS: PIPERACILLIN/TAZOBACTAM 4.5 GM/100 ML BAG IV SCH (04:29)
[2025-05-05] MEDS: VANCOMYCIN HCL 1,500 MG in SODIUM CHLORIDE 0.9% 500 ML IV SCH (06:03)
[2025-05-05 06:32] LABS: Hematocrit (blood only) 31.9 % (42.0-52.0); Hemoglobin 10.3 g/dl (14.0-18.0); Mean Corpuscular Hemoglobin 32.0 pg (25.0-34.0); Mean Corpuscular Volume 99.1 fL (80.0-100.0); Platelet Count 124 K/uL (130-400); RDW Standard Deviation 49.9 fL (36.4-46.3); Red Blood Count 3.22 M/uL (4.70-6.10); White Blood Count 5.95 K/ul (4.8-10.8)
[2025-05-05 07:07] LABS: Anion Gap 3.0 (3-11); Blood Urea Nitrogen 40.0 mg/dl (6-23); Calcium 9.4 mg/dl (8.6-10.3); Carbon Dioxide 28.0 mmol/L (21-32); Chloride 111.0 mmol/L (98-107); Creatinine Clr Calc Pharmacy 58.8 ml/min; Glucose 93.0 mg/dl (70-99(Fasting)); Potassium 4.4 mmol/L (3.5-5.1); Sodium 142.0 mmol/L (136-145)
[2025-05-05] MEDS: CHLORHEXIDINE GLUCONATE 0.12% 480 ML MT SCH (10:36)
[2025-05-05] MEDS: BUTT PASTE (ZINC OXIDE 16%) 171 APPLN/57 GM JAR TOP SCH (10:36)
[2025-05-05] MEDS: CETIRIZINE ORAL SOLN 1 MG/ML PEG SCH (10:36)
[2025-05-05] MEDS: HEPARIN SOD 5,000 UNIT/0.5 ML VIAL SQ SCH (10:40)
--- NOTE | 2025-05-05 10:41 | Pharmacy Report ---
Pharmacy PK ABX Note - Date of Service May 05, 2025 - Assessment and Plan Assessment 70 year old M receiving vancomycin/zosyn for treatment of pneumonia. Pertinent microbiologic data includes: Positive MRSA Nasal Swab, Blood and urine cultures pending. Recent Augmentin prescription Plan Vancomycin * Loading dose: 1250 mg IV x 1 * Maintenance dose: 1500 mg IV every 24 hours * Regimen is predicted to achieve target AUC/TAYLOR of 400-600 mg/L.hr * Random level with AM labs on 05/07 Pharmacy will continue to follow and will adjust dose/frequency as necessary. Thank you. Pharmacy has transitioned to AUC monitoring for vancomycin. AUC/TAYLOR is the pre ferred PK/PD target and is associated with decreased risk of nephrotoxicity compared to traditional trough targets.
[2025-05-05] MEDS: DOCUSATE SODIUM SYRUP 100 MG/10 ML UDC PEG SCH (10:43)
[2025-05-05] MEDS: CYANOCOBALAMIN (B-12) 500 MCG TABLET PEG SCH (10:43)
[2025-05-05] MEDS: POLYETHYLENE (MIRALAX) 17 GM PACK PEG SCH (10:44)
[2025-05-05] MEDS: TUBE FEEDING WATER FLUSH PEG SCH (10:44)
[2025-05-05] MEDS: NUTREN LIQD 2.0 1,000 ML BAG PEG SCH ×2 (11:20→16:51)
--- NOTE | 2025-05-05 12:44 | Hospitalist Progress Note ---
"Date of Service May 05, 2025 Assessment & Plan (1) Pneumonia: (2) Transaminitis: (3) Microcephaly: Plan 70-year-old male PMHx microcephaly, myelodysplastic syndrome, chronic indwelling Hendrix catheter, recurrent UTIs, esophageal dyskinesia dependent on PEG tube feeding, seizure disorder, and prior aspiration pneumonia who presents for cough and wheezing the night of arrival. CXR showed bilateral airspace opacities and bilateral pleural effusions. CTA chest is negative for PE and shows airspace opacities suggestive of atypical infection in the right lower lobe. He was admitted for pneumonia treatment. #PNA | Pleural effusions | Possible aspiration and/or MRSA pneumonia - Symptoms of cough and wheezing the day of arrival. H/o aspiration PNA, was on Augmentin as prescribed by PCP for PNA. CURB 65 score 2 (BUN, age). Admission for PNA, failed outpatient treatment. - CBC without leukocytosis; VBGs WNL; procal 0.04; lactate 0.9 - Nasal MRSA positive - Continue Zosyn + Vancomycin IV - Continue DuoNebs Q2H as needed, O2 as needed - Acetaminophen prn fever/pain - Required pneumo vest in the past to help clear secretions - independently clearing secretions at this time, continue to monitor - Consider pulm consult if slow to improve #Transaminitis - Prior history of as well. Does not appear to be in pain/discomfort during exam. - CT A/P no acute findings, absent L kidney, nonobstructing R renal calculi, small hiatal hernia #CKD, stage 2 - Cr baseline ~ 1.1, renal function at baseline #Hendrix catheter | Chronic UTIs - UA appears infected but could be colonization; urine culture pending - continue to monitor. Continue Hendrix catheter management #Microcephaly | Esophageal dyskinesia - Congenital, nonverbal at baseline; Continue PEG feedings and supportive care as appropriate, medications via tube. Dietitian consulted - appreciate assistance #H/o seizure disorder/mood disorder - continue clozapine. No antiepileptics at present #Psych- Clozapine - continue #Myelodysplastic syndrome - Hgb stable at baseline. No acute change in management of MDS at this time #Gout - Allopurinol - continue * Lasix held at admission; utilized for > 3lb weight gain per prescription details -- can add back as appropriate Dispo: Continued inpatient stay for IV antibiotics VTE Prophylaxis: Heparin Updated caregiver at bedside Admission and Anticipated Discharge Date Admission Date: May 04, 2025 Subjective Patient seen and evaluated at bedside with his caregiver present. He was sleeping comfortably at the time of my visit. Caregiver reports he has had an intermittent cough and has been able to clear his secretions independently so far. We discussed continuing his current antibiotic regimen. No additional complaints or concerns at this time. Telemetry reviewed: Sinus bradycardia with first-degree block in 50s60s. Review of Systems Review of Systems: Unobtainable due to cognitive status Physical Exam Physical Exam: General: No acute distress, nondiaphoretic. Skin: Warm, dry. No rashes or peripheral edema noted. Cardiac: Regular rate and rhythm without murmurs gallops or rubs. Pulm: Breath sounds diminished throughout with mild expiratory crackles. Normal respiratory effort. 93% on room air. Abdominal: Soft, nontender, nondistended. Bowel sounds present. PEG tube site clean, dry, intact. Neuro: Alert and oriented to baseline per his caregiver at bedside. Nonverbal at baseline. Normal motor and sensory function. No focal neurological deficits noted. Results & Data Results & Data Vital Signs (Past 12 Hours) Vital Signs Temp Pulse Pulse Resp BP BP Pulse Ox 05/05/25 11:41 97.9 F 57 L 18 118/75 93 05/05/25 07:30 97.3 F L 63 17 142/66 H 95 05/05/25 04:34 97.5 F L 81 16 120/65 91 05/05/25 01:15 05/05/25 01:11 98.1 F 70 18 180/60 H 96 05/05/25 01:06 70 O2 Del Method 05/05/25 11:41 Room Air 05/05/25 07:30 Room Air 05/05/25 04:34 Room Air 05/05/25 01:15 Room Air 05/05/25 01:11 Room Air 05/05/25 01:06 Laboratory Results Reviewed CBC Reviewed BMP, chemistries Reviewed UA Reviewed serology Reviewed urine and blood cultures Diagnostic Findings Reviewed CXR Reviewed CT A/P Reviewed chest CTA PG Care Time/CCT Total # of Minutes Spent Total Time Spent with Patient: Total time spent is greater than 50% in coordination of care (as documented) at patient's floor/unit and/or counseling patient: Coding Level of Care Code 23395 SUB INP/OBS CARE 235MIN Diagnoses Pneumonia J18.9 Pneumonia type: aspiration pneumonia Transaminitis R74.01 Microcephaly Q02 (1) Pneumonia Pneumonia type: aspiration pneumonia"
[2025-05-05] MEDS ORDERED: Nursing to Pharmacy Communication SCH (16:45)
[2025-05-06 06:28] LABS: Hematocrit (blood only) 31.7 % (42.0-52.0); Hemoglobin 10.3 g/dl (14.0-18.0); Mean Corpuscular Hemoglobin 32.2 pg (25.0-34.0); Mean Corpuscular Volume 99.1 fL (80.0-100.0); Platelet Count 124 K/uL (130-400); RDW Standard Deviation 50.8 fL (36.4-46.3); Red Blood Count 3.20 M/uL (4.70-6.10); White Blood Count 4.92 K/ul (4.8-10.8)
[2025-05-06 06:58] LABS: Anion Gap 7.0 (3-11); Blood Urea Nitrogen 37.0 mg/dl (6-23); Calcium 9.4 mg/dl (8.6-10.3); Carbon Dioxide 25.0 mmol/L (21-32); Chloride 113.0 mmol/L (98-107); Creatinine Clr Calc Pharmacy 56.1 ml/min; Glucose 94.0 mg/dl (70-99(Fasting)); Potassium 4.4 mmol/L (3.5-5.1); Sodium 145.0 mmol/L (136-145)
--- NOTE | 2025-05-06 11:22 | Hospitalist Progress Note ---
"Date of Service May 06, 2025 Assessment & Plan (1) Pneumonia: (2) Transaminitis: (3) Microcephaly: Plan 70-year-old male PMHx microcephaly, myelodysplastic syndrome, chronic indwelling Hendrix catheter, recurrent UTIs, esophageal dyskinesia dependent on PEG tube feeding, seizure disorder, and prior aspiration pneumonia who presents for cough and wheezing the night of arrival. CXR showed bilateral airspace opacities and bilateral pleural effusions. CTA chest is negative for PE and shows airspace opacities suggestive of atypical infection in the right lower lobe. He was admitted for pneumonia treatment. #PNA | Pleural effusions | Possible aspiration and/or MRSA pneumonia - Symptoms of cough and wheezing the day of arrival. H/o aspiration PNA, was on Augmentin as prescribed by PCP for PNA. CURB 65 score 2 (BUN, age). Admission for PNA, failed outpatient treatment. - CBC without leukocytosis; VBGs WNL; procal 0.04; lactate 0.9 - Nasal MRSA positive - Continue Zosyn + Vancomycin IV - Continue DuoNebs Q2H as needed, O2 as needed - Acetaminophen prn fever/pain - Required pneumo vest in the past to help clear secretions - independently clearing secretions at this time, continue to monitor #Transaminitis - Prior history of as well. Does not appear to be in pain/discomfort during exam. - CT A/P no acute findings, absent L kidney, nonobstructing R renal calculi, small hiatal hernia #CKD, stage 2 - Cr baseline ~ 1.1, renal function at baseline #Hendrix catheter | Chronic UTIs - UA appears infected but could be colonization; urine culture pending - continue to monitor. Continue Hendrix catheter management #Microcephaly | Esophageal dyskinesia - Congenital, nonverbal at baseline; Continue PEG feedings and supportive care as appropriate, medications via tube. Dietitian consulted - appreciate assistance #H/o seizure disorder/mood disorder - continue clozapine. No antiepileptics at present #Psych- Clozapine - continue #Myelodysplastic syndrome - Hgb stable at baseline. No acute change in management of MDS at this time #Gout - Allopurinol - continue * Lasix held at admission; utilized for > 3lb weight gain per prescription details -- can add back as appropriate Dispo: Anticipate discharge home tomorrow 05/07 VTE Prophylaxis: Heparin Updated caregiver at bedside Admission and Anticipated Discharge Date Admission Date: May 04, 2025 Subjective Patient seen and evaluated in bedside chair with his caregiver present. She reports his cough has improved. He continues to clear his secretions independently. He slept well overnight. We discussed transitioning to oral antibiotics and likely discharge home tomorrow, 05/07. She is agreeable to this plan. No additional complaints or concerns at this time. Physical Exam Physical Exam: General: No acute distress, nondiaphoretic. Skin: Warm, dry. No rashes or peripheral edema noted. Cardiac: Regular rate and rhythm without murmurs gallops or rubs. Pulm: Breath sounds diminished throughout without wheezes, crackles, rhonchi. Normal respiratory effort. 95% on room air. Abdominal: Soft, nontender, nondistended. Bowel sounds present. PEG tube site clean, dry, intact. Neuro: Alert and oriented to baseline per his caregiver at bedside. Nonverbal at baseline. Normal motor and sensory function. No focal neurological deficits noted. Results & Data Results & Data Vital Signs (Past 12 Hours) Vital Signs Temp Pulse Pulse Resp BP BP Pulse Ox 05/06/25 11:13 97.7 F 81 18 138/70 95 05/06/25 07:35 97.3 F L 68 16 136/67 94 05/06/25 07:14 65 05/06/25 03:26 98.2 F 74 18 126/57 L 96 O2 Del Method 05/06/25 11:13 Room Air 05/06/25 07:35 Room Air 05/06/25 07:14 05/06/25 03:26 Room Air Laboratory Results Reviewed CBC Reviewed BMP PG Care Time/CCT Total # of Minutes Spent Total Time Spent with Patient: Total time spent is greater than 50% in coordination of care (as documented) at patient's floor/unit and/or counseling patient: Coding Level of Care Code 52390 SUB INP/OBS CARE 2/35MIN Diagnoses Pneumonia J18.9 Pneumonia type: aspiration pneumonia Transaminitis R74.01 Microcephaly Q02 (1) Pneumonia Pneumonia type: aspiration pneumonia"
[2025-05-07] MEDS: VANCOMYCIN LEVEL ONE (06:10)
--- NOTE | 2025-05-07 06:23 | Electrocardiogram Report ---
Test Reason : Blood Pressure : */* mmHG Vent. Rate : 70 BPM Atrial Rate : 70 BPM P-R Int : 218 ms QRS Dur : 114 ms QT Int : 418 ms P-R-T Axes : 53 -69 52 degrees QTcB Int : 451 ms Sinus rhythm with 1st degree A-V block Left axis deviation Moderate voltage criteria for LVH, may be normal variant ( R in aVL , [place] product ) Abnormal ECG When compared with ECG of 25-Jan-2025 09:04, AR interval has increased Confirmed by Pramod Palacios ([id number]) on 05/07/2025 6:23:10 AM Referred By: Sharon Montero Confirmed By: Pramod Palacios
[2025-05-07 07:28] VITALS: RESP 18
--- NOTE | 2025-05-07 10:47 | Discharge Summary ---
"Discharge Summary Date of Service May 07, 2025 Principal Dx & Hospital Course #1 = Principal Diagnosis (1) Pneumonia: (2) Transaminitis: (3) Microcephaly: Plan 70-year-old male PMHx microcephaly, myelodysplastic syndrome, chronic indwelling Hendrix catheter, recurrent UTIs, esophageal dyskinesia dependent on PEG tube feeding, seizure disorder, and prior aspiration pneumonia who presents for cough and wheezing the night of arrival. CXR showed bilateral airspace opacities and bilateral pleural effusions. CTA chest is negative for PE and shows airspace opacities suggestive of atypical infection in the right lower lobe. He was admitted for pneumonia treatment. #PNA | Pleural effusions | Possible aspiration and/or MRSA pneumonia - Symptoms of cough and wheezing the day of arrival. H/o aspiration PNA, was on Augmentin as prescribed by PCP for PNA. CURB 65 score 2 (BUN, age). Admission for PNA, failed outpatient treatment. - CBC without leukocytosis; VBGs WNL; procal 0.04; lactate 0.9 - Nasal MRSA positive - Treated with Zosyn + Vancomycin IV while hospitalized - Transitioned to Linezolid 600 mg Q12H through 05/09 on discharge to complete course - Required pneumo vest in the past to help clear secretions but independently cleared secretions throughout this hospital stay #Hendrix catheter | Chronic UTIs - continue daily Hendrix catheter management - UA on admission appeared infected but could be colonization. Urine culture grew pansensitive Pseudomonas aeruginosa. No signs or symptoms of acute UTI. Hendrix catheter was exchanged on day of discharge 05/07. Repeat UA with reflex urine culture was obtained after Hendrix catheter was exchanged. This UA was negative for acute infection and thus no urine culture was reflexed. Do not suspect patient has acute UTI, no antibiotics for UTI were prescribed on discharge #Transaminitis - Prior history of as well. Does not appear to be in pain/discomfort during exam. - CT A/P no acute findings, absent L kidney, nonobstructing R renal calculi, small hiatal hernia #CKD, stage 2 - Cr baseline ~ 1.1, renal function at baseline #Microcephaly | Esophageal dyskinesia - Congenital, nonverbal at baseline; Continue PEG feedings and supportive care as appropriate, medications via tube. Dietitian consulted - appreciate assistance #H/o seizure disorder/mood disorder - continue clozapine. No antiepileptics at present #Psych- Clozapine - continue #Myelodysplastic syndrome - Hgb stable at baseline. No acute change in management of MDS at this time #Gout - Allopurinol - continue Dispo: [facility] back [facility] 05/07 VTE Prophylaxis: Heparin Notes For Next Care Provider Urine culture from admission grew pansensitive Pseudomonas aeruginosa but Marty did not have any signs or symptoms of acute UTI. Hendrix catheter exchange day of discharge 05/07. Repeat UA with reflex culture was obtained via clean-catch after Hendrix catheter exchange. This UA was negative for acute infection and thus no urine culture was reflexed. Do not suspect patient has acute UTI, no antibiotics prescribed for UTI. He continues on oral antibiotic for pneumonia. Medication Changes From Visit Linezolid 600 mg every 12 hours through 05/09 Admission HPI Per Admitting Provider 70-year-old male PMHx microcephaly, myelodysplastic syndrome, chronic indwelling Hendrix catheter, recurrent UTIs, esophageal dyskinesia dependent on PEG tube feeding, seizure disorder, and prior aspiration pneumonia who presents for congestion imaging studies noted arrival. Just completed antibiotics for PNA. Caregiver present in room at time of visit. States she is unsure what is happening and she is present now to relieve the prior front end specialist. She was told the patient had pneumonia. She states that he sometimes has aspiration events, did not see one recently. He has not been having vomiting or diarrhea. No fever to her knowledge. Has been coughing some. History is very limited. ED evaluation reveals CBC without leukocytosis, H&H 12/37.3; CMP sodium 135, BUN 50, ratio 44.2, glucose 130, AST/ALT 59/98, alkaline phosphatase 155; globulin 4.7;: Lactate 0.9; procalcitonin pending; COVID/flu/RSV negative; CXR bilateral airspace opacities represent pulm edema or atypical infection, small bilat pleural effusions, cardiomegaly; pending chest CTA; EKG sinus rhythm with first-degree AV block, LAD, LVH at 70 bpm.; Provided with 1L NSS, Zosyn 4.5g IV, vancomycin IV, and albuterol neb in ED. Please see Dr. Chen's attestation for adjustments/additions to treatment plan. Discharge Exam General: No acute distress, nondiaphoretic. Smiling and pleasant. Skin: Warm, dry. No rashes or peripheral edema noted. Cardiac: Regular rate and rhythm without murmurs gallops or rubs. Pulm: Breath sounds diminished throughout without wheezes, crackles, rhonchi. Normal respiratory effort. 94% on room air. Abdominal: Soft, nontender, nondistended. Bowel sounds present. PEG tube site clean, dry, intact. Neuro: Alert and oriented to baseline per his caregiver at bedside. Nonverbal at baseline. Normal motor and sensory function. No focal neurological deficits noted. Discharge Plan Discharge Items Patient Disposition: [facility] Prison Reason For Visit: PNA Discharge Diagnosis: Pneumonia, possible UTI Condition on Discharge: Fair Activity: Resume your previous activity Non-emergency contact: Primary Care Provider Call non-emergency contact if: you have any medication questions, your symptoms worsen and you have a fever Follow-up/Referrals: Sharon Montero CRNP [Primary Care Provider] - (Follow-up in 1-2 weeks) Diet: Other - See Diet Comment Diet Comment: Continue tube feeds Addtl Attending Provider Instructions: Care of Marty Jaramillo was admitted for pneumonia. His nasal MRSA swab was positive so he was covered for MRSA pneumonia with IV vancomycin and IV Zosyn while hospitalized. He was able to clear his secretions independently throughout his hospitalization. He is being discharged on linezolid (oral antibiotic) - take this twice daily (every 12 hours) through 05/09/2025. Hendrix catheter was exchanged on day of discharge, 05/07/2025. Repeat urine culture is pending and results of this will be deferred to PCP. Continue medication/tube feeds. Please follow-up with PCP in 1-2 weeks. Pending Studies at Discharge: Yes Studies:: Repeat urine culture Stand-Alone Forms: [facility], Smoking Cessation Skilled Items Patient informed of condition?: Yes DNR: No Discharge Level of Care: Other Communicable Disease: No Discharge Prognosis: Stable Lines: None Urinary Catheter: Yes Medications and DC Order Prescriptions: New linezolid 600 mg tablet 600 mg PO Q12H Qty: 6 0RF Continued (DME) nebulizer accessories Kit See Rx Instructions .ROUTE .MEDSUPPLY Qty: 1 0RF Rx Instructions: NEBULIZER, FACE MASK, AND SUPPLIES DX: R05 (DME) diaper,brief,adult,disposable Misc See Dose Instructions .ROUTE .MEDSUPPLY Qty: 240 11RF Dose Instruction: As directed Rx Instructions: As directed adult LARGE 4-8 per day clozapine 50 mg tablet 50 mg Feeding Tube QAM Rx Instructions: crush and dissolve in 5 cc's of water, administer via g-tube chlorhexidine gluconate [Peridex] 0.12 % mouthwash 15 ml BUCCAL BID Qty: 473 4RF Saccharomyces boulardii 250 mg capsule 250 mg feeding tube BID Qty: 60 11RF (DME) compress.stocking,knee,reg,med Misc See Rx Instructions .Route Qty: 2 0RF Rx Instructions: As directed polyethylene glycol 3350 [Miralax] 17 gram/dose powder 17 g feeding tube Q OTHER DAY Qty: 238 5RF Rx Instructions: one cap full mixed with 8 oz of water every other day; for constipation, administered via feeding tube. Hold for loose stools levalbuterol HCl 1.25 mg/3 mL solution for nebulization 1.25 mg INH Q4H PRN (Reason: shortness of breath or wheezing or cough) Qty: 75 5RF Rx Instructions: Nebulizer alum-mag hydroxide-simeth 200-200-20 mg/5 mL suspension 30 ml feeding tube BID PRN (Reason: UPSET STOMACH/VOMITING) bisacodyl 10 mg suppository 10 mg OH DAILY PRN (Reason: constipation) Patient Comments: CONFIRMED W/ NURSE AT SKILLS PT STILL NEEDS/TAKES THIS 02/10/25 clozapine [Clozaril] 25 mg tablet 25 mg Feeding Tube HS Qty: 30 0RF Rx Instructions: TOTAL DOSE 125 MG--TAKES WITH 100 MG TAB. crush and dissolve in 5 cc's of water, administer via g-tube. nystatin [Nystop] 100,000 unit/gram powder 1 applic TOPICAL BID Qty: 30 0RF allopurinol 100 mg tablet 100 mg feeding tube BID Qty: 180 3RF Rx Instructions: 1 tablet twice daily, dissolve in 5 ml's of water and give via feeding tube for gout; (DME) Wings Choice Plus Adult Briefs Misc See Rx Instructions .Route Qty: 216 5RF Rx Instructions: change 4-6 times daily (DME) sheep skin heel protectors See Rx Instructions .Route .MEDSUPPLY Qty: 1 5RF Rx Instructions: apply to each heel Glucerna 1.5 Kevin 0.08-1.5 gram-kcal/mL liquid See Rx Instructions .ROUTE .COMPLEX Qty: 960 11RF Rx Instructions: 8oz via PEG QID. Flush PEG with 90mL water before and after each bolus acetaminophen 160 mg/5 mL (5 mL) suspension 640 mg Feeding Tube Q4 MDD 3 GRAMS/24 HOURS PRN (Reason: fever/headache/minor ache/pain) Qty: 500 3RF fluocinonide-emollient 0.05 % cream 1 applic topical BID PRN (Reason: rash) Qty: 60 1RF Rx Instructions: PRN FOR ABD BINDER rash furosemide 10 mg/mL solution 10 mg feeding tube DIRECTED PRN (Reason: Weight Gain) Qty: 60 3RF Rx Instructions: 1 ml via feeding tube for WEIGHT GAIN = or >THAN 3LBS IN 3 DAYS OR LESS; administer via g-tube. clotrimazole 1 % cream 1 applic topical QID PRN (Reason: Rash) Qty: 45 5RF loperamide 2 mg capsule 2 mg feeding tube Q4H MDD 8 MG/24 HOURS PRN (Reason: Loose Stool) Qty: 30 5RF pediatric multivitamin Tablet,Chewable 1 tab feeding tube QAM Rx Instructions: DISSOLVE IN 5 ML WATER guaifenesin [Chani-Tussin] 100 mg/5 mL Liquid 100 mg feeding tube TID docusate sodium 50 mg/5 mL liquid 100 mg feeding tube QAM cyanocobalamin (vitamin B-12) [Vitamin B-12] 1,000 mcg tablet 1,000 mcg Feeding Tube 2XWK Rx Instructions: crush and dissolve in 30ml of water, administer via g-tube on Monday and fluticasone propionate 50 mcg/actuation spray,suspension 2 spray intranasal QAM Rx Instructions: administer into each nostril zinc oxide 13 % cream 1 applic TOPICAL BID clozapine 100 mg tablet 100 mg feeding tube HS Rx Instructions: TOTAL DOSE 125 MG--TAKES WITH 25 MG TAB. cranberry 500 mg Capsule 500 mg feeding tube BIDM Rx Instructions: administer with meals Azo D-Mannose 120 2 cap feeding tube DAILY cetirizine [Zyrtec] 10 mg Tablet,Chewable 10 mg feeding tube DAILY Rx Instructions: dissolve into 5 ml of water and give through feeding tube Discharge Orders: Discharge Order (Routine); Ordered 05/07/25 Ordered By: Merissa Burnett Admission Data Admit Date/Time: 05/04/25 23:38 Attending Provider: Frederic Zuluaga Admit Provider: German Chen Primary Care Provider: Sharon Montero Other Providers: German Chen Other Interventions: Discharge Summary Assessment (RN) Last Done: 05/07/25 12:10 Hospital Stay Data Consultations 05/04/25 22:59 ED Decision to Admit Stat Diagnostic Imagining Performed Chest X-Ray 05/04/25 20:58 Exam(s): XR CXR 1 VIEW EXAM: XR Chest, 1 View CLINICAL HISTORY: Cough and wheezing. TECHNIQUE: Frontal view of the chest. COMPARISON: Chest radiograph 04/22/2025 FINDINGS: Lungs: Bilateral airspace opacities are present. Pleural space: Small bilateral pleural effusions. No pneumothorax. Heart: Cardiomegaly. Mediastinum: Unremarkable. Normal mediastinal contour. Bones/joints: There are degenerative changes of the spine. No acute fracture. IMPRESSION: 1. Bilateral airspace opacities may represent pulmonary edema and/or atypical infection. 2. Small bilateral pleural effusions. 3. Cardiomegaly. Electronically signed by: Lore Berkowitz MD 05/04/25 23:03 PM Abdomen/Pelvis CT 05/04/25 22:01 Exam(s): CT ABDOMEN + PELVIS With Contrast IV Amt: 119ML OPTIRAY 320 EXAM: CT Abdomen and Pelvis With Intravenous Contrast CLINICAL HISTORY: Pain. TECHNIQUE: Axial computed tomography images of the abdomen and pelvis with intravenous contrast. CTDI is 25 mGy and DLP is 676 mGy-cm. Automated exposure control was utilized for the study. A dose lowering technique was utilized adhering to the principles of ALARA. CONTRAST: Patient received 119ML OPTIRAY 320 of IV contrast COMPARISON: No relevant prior studies available. FINDINGS: Lung bases: Unremarkable. No mass. No consolidation. Mediastinum: Small hiatal hernia. ABDOMEN: Liver: Unremarkable. No mass. Gallbladder and bile ducts: Unremarkable. No calcified stones. No ductal dilation. Pancreas: Unremarkable. No mass. No ductal dilation. Spleen: Unremarkable. No splenomegaly. Adrenals: Unremarkable. No mass. Kidneys and ureters: Absent left kidney. Nonobstructing right renal calculi. No definitive hydronephrosis of the right kidney. Simple appearing right renal cysts are present, no follow-up is needed. Stomach and bowel: There are surgical changes of the stomach. No obstruction. No mucosal thickening. PELVIS: Appendix: Normal appendix. Bladder: A Hendrix catheter is in good position. Reproductive: Unremarkable as visualized. ABDOMEN and PELVIS: Intraperitoneal space: Unremarkable. No free air. No significant fluid collection. Bones/joints: No acute fracture. No dislocation. Soft tissues: Small bilateral fat-containing inguinal hernias. Vasculature: Moderate atherosclerosis. No aneurysm. Lymph nodes: Unremarkable. No enlarged lymph nodes. Tubes, lines and devices: The G-tube is in good position. IMPRESSION: 1. No acute finding of the abdomen or pelvis. 2. Absent left kidney. 3. Nonobstructing right renal calculi. No definitive hydronephrosis of the right kidney. 4. Small hiatal hernia. Electronically signed by: Lore Berkowitz MD 05/05/25 00:24 AM Chest CTA 05/04/25 22:01 Exam(s): CTA CHEST IV Amt: 119ML OPTIRAY 320 EXAM: CT Angiography Chest With Intravenous Contrast CLINICAL HISTORY: Pulmonary embolus. TECHNIQUE: Axial computed tomographic angiography images of the chest with intravenous contrast. MIPS images were created and reviewed. CTDI is 27 mGy and DLP is 2155 mGy-cm. Automated exposure control was utilized for the study. A dose lowering technique was utilized adhering to the principles of ALARA. MIP reconstructed images were created and reviewed. COMPARISON: Chest radiograph 05/04/2025 FINDINGS: Pulmonary arteries: Unremarkable. No pulmonary embolus. Aorta: Mild atherosclerosis. No aneurysm or dissection. Lungs: Interseptal thickening is concerning for pulmonary edema. Airspace opacity of the right lower lobe favors atypical infection, however can not exclude pneumonia. Pleural space: Small right pleural effusion. No pneumothorax. Heart: Unremarkable. No cardiomegaly. No significant pericardial effusion. No evidence of RV dysfunction. Mediastinum: Small hiatal hernia. Bones/joints: There are degenerative changes of the spine. No acute fracture. Soft tissues: Unremarkable. Lymph nodes: Unremarkable. No enlarged lymph nodes. IMPRESSION: 1. No pulmonary embolus. 2. Interseptal thickening is concerning for pulmonary edema. 3. Airspace opacity of the right lower lobe favors atypical infection, however can not exclude pneumonia. Clinical correlation is recommended. 4. Small right pleural effusion. 5. Small hiatal hernia. Electronically signed by: Lore Berkowitz MD 05/05/25 00:22 AM Pending Results Patient Have Any Pending Studies at Discharge: Yes Discharge Instructions Given to Patient (Per Discharging Provider) Care of Marty Jaramillo was admitted for pneumonia. His nasal MRSA swab was positive so he was covered for MRSA pneumonia with IV vancomycin and IV Zosyn while hospitalized. He was able to clear his secretions independently throughout his hospitalization. He is being discharged on linezolid (oral antibiotic) - take this twice daily (every 12 hours) through 05/09/2025. Hendrix catheter was exchanged on day of discharge, 05/07/2025. Repeat urine culture is pending and results of this will be deferred to PCP. Continue medication/tube feeds. Please follow-up with PCP in 1-2 weeks. Total Time Total Time Spent Total Time Spent (In Minutes): Greater than 30 minutes spent completing this discharge process including direct patient care, medication reconciliation, documentation, review of labs and images, and coordination of care. Coding Level of Care Code 42674 INP/OBS DISCH >30 MIN Diagnoses Pneumonia J18.9 Pneumonia type: aspiration pneumonia Transaminitis R74.01 Microcephaly Q02"
[2025-05-07 11:05] VITALS: PULSE 73; TEMP 97.5; O2SAT 94
[2025-05-07 12:11] VITALS: BP 147/58
[2025-05-07 12:35] LABS: Appearance Urine Clear (Clear); Bacteria Urine Automated None Seen (None Seen); Cast Urine Automated 0-2 /lpf (0-2); Epithelial Cell Urine Auto 0-2 /hpf (0-2); Glucose Urine UA Negative (Negative); WBC Urine Automated 0-5 /hpf (0-5)
== END 2025-05-07 12:38 | disposition home or self-care (01) | DRG 179 ==
LOC: ED 20:48 → SUATTDRO 23:38 → 2E 23:38